=== PATIENT | male | born 1960 | race Caucasian/White ===

== ENCOUNTER 2020-02-19 17:54 | Inpatient (IN) ==
[2020-02-19] MEDS ORDERED: ONDANSETRON INJ 2 MG/ML 2 ML VIAL IV STA (18:41)
[2020-02-19] MEDS ORDERED: MoRPHine SULFATE 2 MG/ML CARP IV STA ×2 (18:41→19:56)
[2020-02-19] MEDS ORDERED: SODIUM CHLORIDE 0.9% 1000ML 1,000 ML IV SCH ×2 (18:45→21:45)
--- NOTE | 2020-02-19 18:52 | Emergency Department Note ---
History of Present Illness General Chief complaint: Abdominal Pain Stated complaint: ABDOMINAL PAIN Time Seen by Provider: 02/19/20 18:27 Source: patient and family (Significant other who is at the bedside) Mode of arrival: ambulatory Limitations: no limitations History of Present Illness Maximum Pain Intensity: 6 This patient comes complaining of epigastric abdominal pain and nausea and vomiting for about 5 days. It has been constant although gets worse after eating. He does have some slight radiation up towards the chest but no chest pain itself. No pain into the back. He gets cold sweats and is not sure if he had a fever. He has been vomiting but has had no blood or coffee ground emesis. It has been slightly green at times. Last bowel movement was loose and was yesterday. No blood or melena in his stool. He has Parkinson's disease and feels mildly short of breath at baseline but nothing changed. Slight cough occasionally although he is a smoker. No known exposure for COVID and he has been staying basically at home. No fall or trauma. Home Medications Home Medications Medication Instructions Recorded Confirmed Type carbidopa 25 mg-levodopa 100 mg 1 tab PO DIRECTED tab 05/16/19 02/19/20 History tablet duloxetine 60 mg capsule,delayed 60 mg PO DAILY 05/16/19 02/19/20 History release lisinopril 10 mg tablet 10 mg PO DAILY #30 tab 12/04/19 02/19/20 Rx Allergies Allergy/AdvReac Type Severity Reaction Status Date / Time No Known Allergies Allergy Verified 02/19/20 21:22 Past Med/Surg History Medical History Cervical spondylosis Erectile dysfunction Headache Hypertension (Chronic) Parkinson disease Vertigo Surgical History Hx of neck surgery (05/2018) Family History Denies family history of Ovarian cancer Prostate cancer Myocardial infarction Breast cancer Lung cancer Colorectal cancer Social History Preferred Language: Korean Communication Ability: Effective Visual Impairment: No Limitations Hearing Ability: Normal Global Safety Officer Required: No Beliefs That Will Affect Care: None marital status: Single Current Living Situation: Alone and Other current occupational status: retired Feels Safe at Home: Yes Smoking Status: Current every day smoker Tobacco Type: cigarettes ; Age Started Using Tobacco: 17 ; packs per day: 1 ; Hx Alcohol Use: Yes Hx Substance Use: Yes substance use type: marijuana Childhood Exposure to Second-Hand Smoke: Yes Diet Comment: regular caffeine: No during the past year weight has: remained stable Dental Care, Regularly: No Physical Activity Frequency: Does not Exercise Seatbelt Use: always Sunscreen Use: No Immunizations: Additional past medical history: He denies diabetes or cardiac disease. He denies history of abdominal surgery. No history of peptic ulcer disease or pancreatitis Additional social history. He tells me he smokes 1 pack/day. Drinks about 6 drinks a day and has not had alcohol for a few days he denies that he gets withdrawal symptoms if he does not drink and does not feel shaky. He denies drug use. Review of Systems A total of 10 systems reviewed and were otherwise negative Physical Exam Vital Signs Vital Signs - 24 hr 02/19/20 17:55 02/19/20 18:54 02/19/20 19:06 Temperature 36.8 C Temperature Source Oral Pulse Rate 123 H Pulse Rate [Right Finger] 96 H Pulse Rate from SpO2 Sensor Pulse Rhythm Regular Pulse Strength Normal Respiratory Rate 20 18 Respiratory Effort / Characteristics Non-Labored Respiratory Depth Normal Normal Respiratory Pattern Regular Blood Pressure 161/88 H Blood Pressure [Right Arm] 176/93 H Blood Pressure Mean 112 Blood Pressure Mean [Right Arm] 120 Blood Pressure Position Sitting Blood Pressure Position [Right Arm] Lying Pulse Oximetry 100 97 100 Oxygen Delivery Method Room Air Room Air Sepsis Recent Fever Within 48 Hours No Sepsis New/Unexplained Change in Mental Status No Sepsis Action Taken by Nursing No Action Required 02/19/20 19:30 02/19/20 20:00 02/19/20 20:30 Temperature Temperature Source Pulse Rate 91 H 95 H 87 Pulse Rate [Right Finger] 91 H Pulse Rate from SpO2 Sensor 93 H 95 H 88 Pulse Rhythm Pulse Strength Respiratory Rate 11 L 14 13 Respiratory Effort / Characteristics Respiratory Depth Respiratory Pattern Blood Pressure 157/100 H 158/94 H 172/99 H Blood Pressure [Right Arm] 158/94 H Blood Pressure Mean 116 123 130 Blood Pressure Mean [Right Arm] 115 Blood Pressure Position Blood Pressure Position [Right Arm] Pulse Oximetry 99 100 99 Oxygen Delivery Method Room Air Sepsis Recent Fever Within 48 Hours Sepsis New/Unexplained Change in Mental Status Sepsis Action Taken by Nursing General: Well developed well nourished in no acute distress, breathing comfortably on room air. Normal speech HEENT: Normal cephalic atraumatic. Pupils are equal round and reactive to light. Sclera anicteric. Extraocular movements are intact. Oropharynx is pink with moist mucous membranes. No swelling of the mouth lips or tongue. Neck: Supple with a midline trachea. No meningeal signs or stiffness, no JVD or bruits. No Stridor. Chest: Clear to auscultation bilaterally. No wheezes or rhonchi. No increased work of breathing. Heart: Regular rate and rhythm without murmurs or gallops. Abdomen: Soft, moderately tender in the epigartic central abdomen, nondistended without rebound guarding or rigidity. No masses. Extremities: No cyanosis clubbing or edema. No calf tenderness or assymetry Spine/Back. Non tender to palpation. No CVA tenderness Skin: Good turgor without rashes. Neurologic exam: Cranial nerves two through 12 are intact. Motor and sensation are intact and symmetrical throughout. Course Administered Medications Ioversol (Optiray 320 100ml) 93 ml IV ONCE PRN PRN Reason: Interaction Checking Stop: 02/23/20 20:42 Last Admin: 02/19/20 20:44 Dose: 93 ml Documented by: [id number] Discontinued Medications Sodium Chloride (Nss 1000ml) 1,000 mls @ 999 mls/hr IV .Q1H1M MAKSIM Stop: 02/19/20 19:45 Last Infusion: 02/19/20 20:08 Dose: 0 mls/hr Documented by: [id number] Admin: 02/19/20 19:02 Dose: 999 mls/hr Documented by: [id number] Morphine Sulfate (Morphine Sulfate) 2 mg IV NOW STA Stop: 02/19/20 18:42 Last Admin: 02/19/20 19:01 Dose: 2 mg Documented by: [id number] Morphine Sulfate (Morphine Sulfate) 2 mg IV NOW STA Stop: 02/19/20 19:57 Last Admin: 02/19/20 20:06 Dose: 2 mg Documented by: [id number] Ondansetron HCl (Zofran) 4 mg IV NOW STA Stop: 02/19/20 18:42 Last Admin: 02/19/20 19:02 Dose: 4 mg Documented by: [id number] Medical Decision Making Differential Diagnosis Dehydration, peptic ulcer disease, gallbladder disease, pancreatitis, bowel obstruction, appendicitis, cardiac disease, COVID, sepsis, electrolyte or metabolic abnormality Medical Records Attestation: I reviewed the patient's medical records. Home Medications Current Medication List: was personally reviewed by me Laboratory Data Attestation: I reviewed the patient's lab results. Result diagrams: 02/19/20 18:56 02/19/20 18:56 Lab Results 02/19/20 02/19/20 02/19/20 Range/Units 18:56 18:56 18:56 WBC 7.77 (4.8-10.8) K/uL RBC 3.16 L (4.7-6.1) M/uL Hgb 13.1 L (14.0-18.0) g/dL Hct 36.9 L (42-52) % MCV 116.8 H (80-100) fL MCH 41.5 H (25-34) pg MCHC 35.5 (32-36) g/dL RDW Std Deviation 66.5 H (36.4-46.3) fL RDW Coeff of Brianda 15.8 H (11.5-14.5) % Plt Count 196 (130-400) K/uL MPV 9.7 (7.4-10.4) fL Immature Gran % (Auto) 0.3 % Neut % (Auto) 68.8 % Lymph % (Auto) 16.0 % Monroe % (Auto) 13.5 % Eos % (Auto) 1.0 % Baso % (Auto) 0.4 % Neut # (Auto) 5.35 (1.4-6.5) K/uL Lymph # (Auto) 1.24 (1.2-3.4) K/uL Monroe # (Auto) 1.05 H (0.11-0.59) K/uL Eos # (Auto) 0.08 (0-0.5) K/uL Baso # (Auto) 0.03 (0-0.2) K/uL Immature Gran # (Auto) 0.02 (0.00-0.02) K/uL Anisocytosis Present Macrocytosis Present PT 12.1 H (9.0-12.0) Seconds INR 1.2 H (0.9-1.1) APTT 26.8 (21.0-31.0) Seconds PTT Ratio 1.0 Sodium 137 (136-145) mmol/L Potassium 3.5 (3.5-5.1) mmol/L Chloride 97 L (98-107) mmol/L Carbon Dioxide 28 (21-32) mmol/L Anion Gap 12.0 H (3-11) BUN 12 (7-18) mg/dl Creatinine 0.80 (0.6-1.4) mg/dl Est Cr Clr Drug Dosing 77.3 ml/min Est GFR ( Amer) 113.3 Est GFR (Non-Af Amer) 97.8 BUN/Creatinine Ratio 15.0 (10-20) Glucose 106 H (70-99) mg/dl Calcium 9.1 (8.5-10.1) mg/dl Magnesium (1.8-2.4) mg/dl Total Bilirubin 1.5 H (0.2-1) mg/dl AST 66 H (15-37) U/L ALT 26 (12-78) U/L Alkaline Phosphatase 140 H (45-117) U/L Troponin I < 0.015 (0-0.045) ng/ml Total Protein 7.4 (6.4-8.2) gm/dl Albumin 3.4 (3.4-5.0) gm/dl Globulin 4.0 (2.5-4.0) gm/dl Albumin/Globulin Ratio 0.9 (0.9-2) Lipase 4833 H (73-393) U/L 02/19/20 Range/Units 18:56 WBC (4.8-10.8) K/uL RBC (4.7-6.1) M/uL Hgb (14.0-18.0) g/dL Hct (42-52) % MCV (80-100) fL MCH (25-34) pg MCHC (32-36) g/dL RDW Std Deviation (36.4-46.3) fL RDW Coeff of Brianda (11.5-14.5) % Plt Count (130-400) K/uL MPV (7.4-10.4) fL Immature Gran % (Auto) % Neut % (Auto) % Lymph % (Auto) % Monroe % (Auto) % Eos % (Auto) % Baso % (Auto) % Neut # (Auto) (1.4-6.5) K/uL Lymph # (Auto) (1.2-3.4) K/uL Monroe # (Auto) (0.11-0.59) K/uL Eos # (Auto) (0-0.5) K/uL Baso # (Auto) (0-0.2) K/uL Immature Gran # (Auto) (0.00-0.02) K/uL Anisocytosis Macrocytosis PT (9.0-12.0) Seconds INR (0.9-1.1) APTT (21.0-31.0) Seconds PTT Ratio Sodium (136-145) mmol/L Potassium (3.5-5.1) mmol/L Chloride (98-107) mmol/L Carbon Dioxide (21-32) mmol/L Anion Gap (3-11) BUN (7-18) mg/dl Creatinine (0.6-1.4) mg/dl Est Cr Clr Drug Dosing ml/min Est GFR ( Amer) Est GFR (Non-Af Amer) BUN/Creatinine Ratio (10-20) Glucose (70-99) mg/dl Calcium (8.5-10.1) mg/dl Magnesium 1.6 L (1.8-2.4) mg/dl Total Bilirubin (0.2-1) mg/dl AST (15-37) U/L ALT (12-78) U/L Alkaline Phosphatase (45-117) U/L Troponin I (0-0.045) ng/ml Total Protein (6.4-8.2) gm/dl Albumin (3.4-5.0) gm/dl Globulin (2.5-4.0) gm/dl Albumin/Globulin Ratio (0.9-2) Lipase (73-393) U/L Imaging Data Attestation: I personally reviewed and interpreted this imaging study as follows: My Impression: Chest x-ray: No acute infiltrate, failure, pneumothorax seen. No free air seen Radiologist's Impression: CT abd pelvis IV con only CLINICAL HISTORY: eval for pancreatitis, pseudocyst MID ABDOMINAL PAIN COMPARISON STUDY: None. TECHNIQUE: Patient was scanned in a dynamic helical fashion during intravenous administration of 93 cc of Optiray 320 A dose lowering technique was utilized adhering to the principles of ALARA. CT DOSE: 250.38 mGy.cm FINDINGS: Lower chest: The heart is normal in size and configuration, without pericardial effusion. The lung bases and pleural spaces are clear. Liver: There is severe hepatic steatosis. No focal masses are visualized. There is focal fatty sparing adjacent to the falciform ligament. There is no ductal dilatation. The portal vein and hepatic veins appear patent Gallbladder: Unremarkable. Spleen: Normal in size and attenuation. Pancreas: There is peripancreatic edema consistent with acute interstitial monae creatitis. Edema extends to surround the second portion the duodenum. Adrenal glands: Unremarkable. Kidneys: There is a 7 mm exophytic hyperdense left renal lesion. A dedicated renal CT scan or MRI is recommended for differentiation of a solid renal lesion from a hyperdense cyst. Bowel: There are no transition zones to indicate bowel obstruction. The appendix appears normal. There is colonic diverticulosis. There is no evidence of acute diverticulitis. Peritoneum: There is no intraperitoneal free air or abdominal ascites. Vasculature: The abdominal aorta is normal in course and caliber. Adenopathy: None. Pelvic viscera: There is bladder wall thickening. There is borderline prostatomegaly. Skeletal structures: No destructive lesions are visualized IMPRESSION: 1. No evidence of bowel obstruction. No evidence of free air 2. Normal appendix. No evidence of acute diverticulitis 3. Severe hepatic steatosis 4. Diffuse peripancreatic edema consistent with acute interstitial pancreatitis 5. 7 mm left renal lesion, hyperdense cyst versus solid renal neoplasm. A nonemergent dedicated renal CT scan or MRI is recommended in follow-up 6. Bladder wall thickening XR chest 1V portable CLINICAL HISTORY: Atypical chest pain COMPARISON STUDY: No previous studies for comparison. FINDINGS: The cardiac and mediastinal contours are normal. There is no evidence of focal pulmonary consolidation. There is no evidence of failure. No pleural effusions are visualized.[There are multiple old right-sided rib fractures. There are postsurgical changes within the cervical spine. IMPRESSION: No active disease in the chest. ECG Data Attestation: I personally reviewed and interpreted this ECG as follows: Indication: + abdominal pain Blood Pressure Blood Pressure Findings: Elevated blood pressure Blood Pressure Disposition: elevated BP felt to be situational MDM Narrative This patient comes in with epigastric abdominal pain and vomiting. This is been going on for 5 days. He is moderately tender in epigastric area. The differential is broad at this point. IV access was established and he was hydrated with a 1 L IV normal saline bolus and then hourly rate of IV normal saline. He was given Zofran 4 mg IV and morphine 2 mg IV for pain and nausea management. He is not driving. He does drink alcohol moderately but denies any alcohol withdrawal type symptoms does not have a history of pancreatitis. EKG and chest x-ray were also ordered. EKG does not suggest acute coronary syndrome or arrhythmia. Chest x-ray is unremarkable and there is no free air or pulmonary findings. He has no significant white count or fever to suggest infection. He has no significant electrolyte or metabolic abnormalities. There is nothing suggest liver disease. His lipase however is significantly elevated at greater than 4800. I did order a CT with IV contrast to further evaluate this and to rule out pseudocyst or bowel obstruction. CAT scan does show pancreatitis there is no pseudocyst. This may be related to his alcohol use. Did receive additional IV morphine 2 mg. I do think he needs to be admitted for further treatment and evaluation hydration and bowel rest. I have discussed case with Dr. Mccollum in consultation. The patient also has a 7 mm left renal lesion which could be a cyst or malignancy and he may need further work-up on this as well. His magnesium was low at 1.6 and he was repleted in the ED with 1 g IV mag Impression & Plan Acute pancreatitis, Parkinson disease, Vomiting, Abdominal pain with vomiting, Hypomagnesemia, Kidney lesion Discharge Plan Visit Data Chief Complaint: Abdominal Pain Stated Complaint: ABDOMINAL PAIN ED Provider: Colin Grissom Discharge Problem: Acute pancreatitis, Parkinson disease, Vomiting, Abdominal pain with vomiting, Hypomagnesemia, Kidney lesion Forms Stand Alone Forms: My [facility] Prescriptions Prescriptions: No Action lisinopril 10 mg tablet 10 mg PO DAILY Qty: 30 RF: 5 duloxetine [Cymbalta] 60 mg capsule,delayed release(DR/EC) 60 mg PO DAILY RF: 0 carbidopa-levodopa [Sinemet] 25-100 mg tablet 1 tab PO DIRECTED RF: 0 Discharge Problem: Acute pancreatitis Qualifiers: Pancreatitis type: alcohol induced Acute pancreatitis complication: uninfected necrosis Qualified Code(s): K85.21 - Alcohol induced acute pancreatitis with uninfected necrosis Vomiting Qualifiers: Vomiting type: unspecified Vomiting Intractability: intractable Nausea presence: with nausea Qualified Code(s): R11.2 - Nausea with vomiting, unspecified
[2020-02-19 19:03] LABS: Basophils # (auto) 0.03 K/uL (0-0.2); Basophils % (auto) 0.4 %; Eosinophils # (auto) 0.08 K/uL (0-0.5); Hematocrit (blood only) 36.9 % (42-52); Hemoglobin 13.1 g/dL (14.0-18.0); Immature Granulocytes # (auto) 0.02 K/uL (0.00-0.02); Immature Granulocytes % (auto) 0.3 %; Lymphocytes # (auto) 1.24 K/uL (1.2-3.4); Mean Corpuscular Hemoglobin 41.5 pg (25-34); Mean Corpuscular Hgb Conc 35.5 g/dL (32-36); Mean Corpuscular Volume 116.8 fL (80-100); Mean Platelet Volume 9.7 fL (7.4-10.4); Monocytes # (auto) 1.05 K/uL (0.11-0.59); Monocytes % (auto) 13.5 %; Neutrophils # (auto) 5.35 K/uL (1.4-6.5); Neutrophils % (auto) 68.8 %; Platelet Count 196 K/uL (130-400); RDW Coefficient of Variation 15.8 % (11.5-14.5); RDW Standard Deviation 66.5 fL (36.4-46.3); Red Blood Count 3.16 M/uL (4.7-6.1); White Blood Count 7.77 K/uL (4.8-10.8)
[2020-02-19 19:17] LABS: INR 1.2 (0.9-1.1); Partial Thromboplastin Time 26.8 Seconds (21.0-31.0); Prothrombin Time 12.1 Seconds (9.0-12.0)
[2020-02-19 19:21] LABS: Alanine Aminotransferase 26 U/L (12-78); Albumin Level 3.4 gm/dl (3.4-5.0); Aspartate Aminotransferase 66 U/L (15-37); Blood Urea Nitrogen 12 mg/dl (7-18); Calcium 9.1 mg/dl (8.5-10.1); Carbon Dioxide 28 mmol/L (21-32); Chloride 97 mmol/L (98-107); Creatinine Clr Calc Pharmacy 77.3 ml/min; Est GFR (African American) 113.3; Est GFR (Non-African American) 97.8; Glucose 106 mg/dl (70-99); Potassium 3.5 mmol/L (3.5-5.1); Sodium 137 mmol/L (136-145)
--- NOTE | 2020-02-19 19:24 | XRay Report ---
XR chest 1V portable CLINICAL HISTORY: Atypical chest pain COMPARISON STUDY: No previous studies for comparison. FINDINGS: The cardiac and mediastinal contours are normal. There is no evidence of focal pulmonary co nsolidation. There is no evidence of failure. No pleural effusions are visualized.[There are multiple old right-sided rib fractures. There are postsurgical changes within the cervical spine. IMPRESSION: No active disease in the chest. ACT 112: Negative or not required by law. Electronically signed by: Andriy Guzmán M.D. 02/19/2020 7:23 PM
[2020-02-19 19:26] LABS: Albumin Globulin Ratio 0.9 (0.9-2); Alkaline Phosphatase 140 U/L (45-117); Bilirubin,Total 1.5 mg/dl (0.2-1); Lipase 4833 U/L (73-393); Total Protein 7.4 gm/dl (6.4-8.2); Troponin I < 0.015 ng/ml (0-0.045)
[2020-02-19 20:15] LABS: Anisocytosis Present; Macrocytosis Present
[2020-02-19] MEDS ORDERED: IOVERSOL 100ml IV PRN (20:43)
--- NOTE | 2020-02-19 20:58 | CT Scan Report ---
CT abd pelvis IV con only CLINICAL HISTORY: eval for pancreatitis, pseudocyst MID ABDOMINAL PAIN COMPARISON STUDY: None. TECHNIQUE: Patient was scanned in a dynamic helical fashion during intravenous administration of 93 c c of Optiray 320 A dose lowering technique was utilized adhering to the principles of ALARA. CT DOSE: 250.38 mGy.cm FINDINGS: Lower chest: The heart is normal in size and configuration, without pericardial effusion. The lung ba ses and pleural spaces are clear. Liver: There is severe hepatic steatosis. No focal masses are visualized. There is focal fatty sparin g adjacent to the falciform ligament. There is no ductal dilatation. The portal vein and hepatic vein s appear patent Gallbladder: Unremarkable. Spleen: Normal in size and attenuation. Pancreas: There is peripancreatic edema consistent with acute interstitial pancreatitis. Edema extend s to surround the second portion the duodenum. Adrenal glands: Unremarkable. Kidneys: There is a 7 mm exophytic hyperdense left renal lesion. A dedicated renal CT scan or MRI is recommended for differentiation of a solid renal lesion from a hyperdense cyst. Bowel: There are no transition zones to indicate bowel obstruction. The appendix appears normal. Ther e is colonic diverticulosis. There is no evidence of acute diverticulitis. Peritoneum: There is no intraperitoneal free air or abdominal ascites. Vasculature: The abdominal aorta is normal in course and caliber. Adenopathy: None. Pelvic viscera: There is bladder wall thickening. There is borderline prostatomegaly. Skeletal structures: No destructive lesions are visualized IMPRESSION: 1. No evidence of bowel obstruction. No evidence of free air 2. Normal appendix. No evidence of acute diverticulitis 3. Severe hepatic steatosis 4. Diffuse peripancreatic edema consistent with acute interstitial pancreatitis 5. 7 mm left renal lesion, hyperdense cyst versus solid renal neoplasm. A nonemergent dedicated renal CT scan or MRI is recommended in follow-up 6. Bladder wall thickening ACT 112: Negative or not required by law. Electronically signed by: Andriy Guzmán M.D. 02/19/2020 8:56 PM
[2020-02-19] MEDS ORDERED: MAGNESIUM SULFATE / D5W 1 GM/100 ML BAG IV STA (21:35)
--- NOTE | 2020-02-19 22:26 | History & Physical Report ---
Date of Service February 19, 2020 Assessment & Plan (1) Acute pancreatitis: Jorge Coronado is a 59 y/o male with past medical hx of Parkinson's, tobacco abuse, alcohol abuse, HTN, Depression, erectile dysfunction who presented to [facility] ED for abdominal pain. In the ED he was found to have pancre atitis with Lipase greater than 3 times upper limit of normal at 4833. AST 66 ALT 26. Hgb 13.1 and MCV 116.8, INR 1.2, T Bili 1.5, Mag 1.6, K 3.5. CT abd/pelvis with severe hepatic steatosis, diffuse peripancretic edema consistent with acute interstitial pancreatitis, 7mm left renal lesion, hyperdense cyst versus solid renal neoplasm with recommended nonemergent dedicated CT scan or MRI, bladder wall thicking, CXR w NAD. In ED he received Mag 1gm IV, NSS 1L Bolus and then NSS @ 125mL/hr, Zofran 4mg IV x1, Morphine 2mg IV x2. - Will treat pancreatitis with IVF, Pain analgesics, and bowel rest. - NPO except for sips/chips/meds - Control Nausea and Vomiting with Zofran 4mg IV PRN - Pain control with Dilaudid 0.5mg IV q3H PRN - Follow clinically - No signs of acute hepatitis, most likely etiology is pancreatitis from alcohol intake. - Lipase 4833 on initial; trend in AM; no significant elevation of LFTs for choledocholithiasis. - CT Abd consistent with inflammation of pancreas, no signs of abscess. - MELD score of 10 with 6.0% 3-month mortality. FENGI: NPO except for sips/chips/meds; Pepcid 20mg IV; Nutrition consult for nutritional assessment DVT ppx: SCDs Code: Full Dispo: Med/surg tele, Full admit (2) Nausea and vomiting: - No signs of bloody emesis - Most likely from pancreatitis - NPO and Zofran 4mg IV PRN (3) Alcohol abuse: - with signs of liver damage with severe hepatic steatosis on imaging - AST: ALT 2:1 ratio - no signs of acute alcoholic hepatitis, ALT WNL - No prior history of withdrawal and reports being 48 hours out without signs of withdrawal closely, no need for current AWSS protocols, but could change clinically. (4) Kidney lesion: 7mm left renal lesion, hyperdense cyst versus solid renal neoplasm with recommended nonemergent dedicated CT scan or MRI Smoking history risk factor UA ordered to look for blood Renal CT ordered for AM, already received IV contrast for CT Abd/pelvis in ED, may confound testing if ordered now, will order for AM. (5) Hypertension: C/w home Lisinopril 10mg PO, BPs elevated in ED 163/95, creatinine WNL. (6) Parkinson disease: appears currently stable C/w home Carbo/Levo 25mg/100mg. (7) Macrocytic anemia: - Folate and Vit B12 ordered - MCV with 116.8, Hgb 13.1 - Folate 1gm IV ordered - Consistent with alcohol abuse hx (8) Hypomagnesemia: Mag 1.6 in ED, given Mag 1gm IV x1 Trend in AM History of Present Illness Chief Complaint: Abdominal Pain Primary Care Provider: [place]ia Vasquez DO Jorge Coronado is a 59 y/o male with past medical hx of Parkinson's, tobacco abuse, alcohol abuse, HTN, Depression, erectile dysfunction who presented to [facility] ED for abdominal pain. He notes pain started about 5 days ago. It is located to his epigastric area, he denies radiation. He describes pain as stabbing. He notes he has had nausea and vomiting for the past 2 days with limited PO intake. He notes nausea and vomiting is worse with any food or liquid intake. He denies bloody emesis, black/blood stools. He notes pain gradually became worse and since wasn't able to tolerate PO intake he came here to ED for evaluation. He denies acute fever/chills, chest pain, shortness of breath. He notes currently in ED he feels same, has no active vomiting and denies current nausea. He notes not being able to take his Parkinson's medication for about 2 days. He also notes his last drink of alcohol was about 2 days ago as well. He notes usually drinks a 6 pack of Vicente light per day. He denies prior history of alcohol withdrawal or symptoms when going a couple days without drinking. He notes a history of hallucinations visual that is attributed to Parkinson's denies that this is from alcohol withdrawal, denies any current. In the ED he was found to have pancreatitis with Lipase greater than 3 times upper limit of normal at 4833. AST 66 ALT 26. Hgb 13.1 and MCV 116.8, INR 1.2, T Bili 1.5, Mag 1.6, K 3.5. CT abd/pelvis with severe hepatic steatosis, diffuse peripancretic edema consistent with acute interstitial pancreatitis, 7mm left renal lesion, hyperdense cyst versus solid renal neoplasm with recommended nonemergent dedicated CT scan or MRI, bladder wall thicking, CXR w NAD. In ED he received Mag 1gm IV, NSS 1L Bolus and then NSS @ 125mL/hr, Zofran 4mg IV x1, Morphine 2mg IV x2. Allergies Allergy/AdvReac Type Severity Reaction Status Date / Time No Known Allergies Allergy Verified 02/19/20 21:22 Home Medications Home Medications Medication Instructions Recorded Confirmed Type carbidopa 25 mg-levodopa 100 mg 1 tab PO DIRECTED tab 05/16/19 02/19/20 History tablet duloxetine 60 mg capsule,delayed 60 mg PO DAILY 05/16/19 02/19/20 History release lisinopril 10 mg tablet 10 mg PO DAILY #30 tab 12/04/19 02/19/20 Rx Past Med/Surg History Medical History Cervical spondylosis Erectile dysfunction Headache Hypertension (Chronic) Parkinson disease Vertigo Surgical History Hx of neck surgery (05/2018) Family History Denies family history of Ovarian cancer Prostate cancer Myocardial infarction Breast cancer Lung cancer Colorectal cancer Social History Preferred Language: Kiswahili Communication Ability: Effective Visual Impairment: No Limitations Hearing Ability: Normal 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 Beliefs That Will Affect Care: None marital status: Single Current Living Situation: Significant Other Current Living Situation Comment: Fiance current occupational status: retired Other Information That Helps Us Care for You: No Feels Safe at Home: Yes Safety Concerns: Feels Safe At This Time Smoking Status: Current every day smoker Tobacco Type: cigarettes ; Age Started Using Tobacco: 17 ; packs per day: 1 ; Do You Dip or Chew Tobacco: No ; Tobacco Cessation Education Requested by Patient: No Hx Alcohol Use: Yes Alcohol type: beer Hx Substance Use: No Childhood Exposure to Second-Hand Smoke: Yes Diet Comment: regular caffeine: No during the past year weight has: remained stable Dental Care, Regularly: No Physical Activity Frequency: Does not Exercise Seatbelt Use: always Sunscreen Use: No Review of Systems Review of Systems: All systems reviewed & are unremarkable except as noted in HPI & below Constitutional: no sweats and no increased appetite notes chronic subjective fever chills, not acute Eyes: no diplopia and no problem reported Ear, Nose, Mouth, Throat: no nasal congestion and no epistaxis Respiratory: no dyspnea and no pain on inspiration Cardiovascular: no chest pain and no palpitations Gastrointestinal: as per Subjective / HPI Genitourinary: no dysuria and no urinary frequency Musculoskeletal: no back pain and no neck pain Integumentary: no rash and no lesions Neurologic: no falls, no numbness and no syncope Endocrine: no polydipsia, no polyphagia and no polyuria Physical Exam Constitutional: + thin, + disheveled, cooperative and comfortable; no acute distress appears older than stated age Eyes: PERRL, conjunctivae normal, anicteric sclerae ENMT: external ear and nose normal, oropharynx normal Neck: normal visual inspection and trachea midline Respiratory: normal respiratory effort, lungs clear to auscultation Cardiovascular: distant heart sounds; no edema Gastrointestinal (Abdomen): Inspection/Auscultation: caput medusae absent and Mehta-Merida sign absent Percussion/Palpation: + abdomen tender (epigastric without rebound) and + guarding (voluntary); no ascites No candie sign Musculoskeletal: Head/Neck/Chest: normocephalic and head atraumatic Skin: erythema across upper chest not consistent with infection Neurologic: moves all extremities and awake; no focal motor deficits Motor/Sensory: no tremor and no asterixis Psychiatric: Orientation: alert and oriented x 3 Affect: + depressed affect and + flat affect Mood: + depressed mood Results & Data Results & Data ([facility]) Vital Signs (Past 12 Hours) Vital Signs Temp Pulse Pulse Resp BP BP Pulse Ox 02/19/20 22:04 100 02/19/20 22:00 94 H 24 163/95 H 99 02/19/20 21:30 96 H 22 167/99 H 99 02/19/20 20:30 87 13 172/99 H 99 02/19/20 20:00 95 H 91 H 14 158/94 H 158/94 H 100 02/19/20 19:30 91 H 11 L 157/100 H 99 02/19/20 19:06 96 H 18 176/93 H 100 02/19/20 18:54 97 02/19/20 17:55 36.8 C 123 H 20 161/88 H 100 Laboratory Results Laboratory Results - last 24 hr 02/19/20 02/19/20 02/19/20 18:56 18:56 18:56 WBC 7.77 RBC 3.16 L Hgb 13.1 L Hct 36.9 L MCV 116.8 H MCH 41.5 H MCHC 35.5 RDW Std Deviation 66.5 H RDW Coeff of Brianda 15.8 H Plt Count 196 MPV 9.7 Immature Gran % (Auto) 0.3 Neut % (Auto) 68.8 Lymph % (Auto) 16.0 Garrett % (Auto) 13.5 Eos % (Auto) 1.0 Baso % (Auto) 0.4 Neut # (Auto) 5.35 Lymph # (Auto) 1.24 Garrett # (Auto) 1.05 H Eos # (Auto) 0.08 Baso # (Auto) 0.03 Immature Gran # (Auto) 0.02 Anisocytosis Present Macrocytosis Present PT 12.1 H INR 1.2 H APTT 26.8 PTT Ratio 1.0 Sodium 137 Potassium 3.5 Chloride 97 L Carbon Dioxide 28 Anion Gap 12.0 H BUN 12 Creatinine 0.80 Est Cr Clr Drug Dosing 77.3 Est GFR ( Amer) 113.3 Est GFR (Non-Af Amer) 97.8 BUN/Creatinine Ratio 15.0 Glucose 106 H Calcium 9.1 Magnesium Total Bilirubin 1.5 H AST 66 H ALT 26 Alkaline Phosphatase 140 H Troponin I < 0.015 Total Protein 7.4 Albumin 3.4 Globulin 4.0 Albumin/Globulin Ratio 0.9 Lipase 4833 H 02/19/20 18:56 WBC RBC Hgb Hct MCV MCH MCHC RDW Std Deviation RDW Coeff of Brianda Plt Count MPV Immature Gran % (Auto) Neut % (Auto) Lymph % (Auto) Garrett % (Auto) Eos % (Auto) Baso % (Auto) Neut # (Auto) Lymph # (Auto) Garrett # (Auto) Eos # (Auto) Baso # (Auto) Immature Gran # (Auto) Anisocytosis Macrocytosis PT INR APTT PTT Ratio Sodium Potassium Chloride Carbon Dioxide Anion Gap BUN Creatinine Est Cr Clr Drug Dosing Est GFR ( Amer) Est GFR (Non-Af Amer) BUN/Creatinine Ratio Glucose Calcium Magnesium 1.6 L Total Bilirubin AST ALT Alkaline Phosphatase Troponin I Total Protein Albumin Globulin Albumin/Globulin Ratio Lipase Medications Administered Magnesium Sulfate/Dextrose (Magnesium Sulfate / D5w) 1 gm in 100 mls @ 100 mls/hr IV NOW STA Stop: 02/19/20 22:34 Last Admin: 02/19/20 22:00 Dose: 100 mls/hr Documented by: [id number] Sodium Chloride (Nss 1000ml) 1,000 mls @ 125 mls/hr IV .Q8H MAKSIM Stop: 03/20/20 21:44 Last Admin: 02/19/20 22:01 Dose: 125 mls/hr Documented by: [id number] Ioversol (Optiray 320 100ml) 93 ml IV ONCE PRN PRN Reason: Interaction Checking Stop: 02/23/20 20:42 Last Admin: 02/19/20 20:44 Dose: 93 ml Documented by: [id number] Code Status & VTE Plan Code Status Full Code VTE Prophylaxis Plan VTE Prophylaxis will be ordered: Yes Supervising Physician Co-Signing Physician Notes Attending addendum: I have physically seen this patient, have supervised the medical residents activities, and agree with the H&P unless as otherwise noted. Assessment and Plan: Acute pancreatitis/history of alcohol abuse with normal levels today- N.p.o. AST 66, lipase 4833, total bili 1.5. IV fluids per protocol Zofran 4 mg IV every 6 hours as needed Dilaudid 0.5 mg IV every 3 hours as needed severe pain Follow serial CBC with differential, chemistry profile and lipase levels Meld score of 10 Hypokalemia hypomagnesemia- Correct with IV replacement. Repeat laboratories in a.m. Alcohol abuse- AWSS protocol. 7 mm left kidney lesion- Possible renal cell carcinoma. Order a Renal CT Consult urology Remaining orders notations as noted Resident Activity Tracking Resident Involvement: Resident Care Provided Care Provided: Adult Hospital Medicine (1) Acute pancreatitis Acute pancreatitis complication: uninfected necrosis Pancreatitis type: alcohol induced Qualified Code(s): K85.21 - Alcohol induced acute pancreatitis with uninfected necrosis
[2020-02-19] MEDS ORDERED: ONDANSETRON INJ 2 MG/ML 2 ML VIAL IV PRN (23:54)
[2020-02-20] MEDS: HYDROmorphone INJ 0.5 MG/0.5 ML SYR IV PRN ×4 (00:19→21:05)
[2020-02-20] MEDS: CARBIDOPA/LEVODOPA 25/100MG TAB PO SCH ×4 (00:38→21:01)
[2020-02-20] MEDS: THIAMINE HCL 100 MG in SYRINGE 9 ML IV SCH ×2 (00:38→08:34)
[2020-02-20] MEDS: FAMOTIDINE 20 MG in SYRINGE 3 ML IV SCH ×2 (00:38→08:34)
[2020-02-20] MEDS: FOLIC ACID 1 MG in SYRINGE 9.8 ML IV SCH ×2 (00:38→08:34)
[2020-02-20] MEDS: SODIUM CHLORIDE 0.9% 1000ML 1,000 ML IV SCH ×3 (00:38→16:47)
[2020-02-20 01:22] LABS: Acetaminophen < 2 ug/ml (10-30); Salicylate < 1.7 mg/dl (2.8-20)
[2020-02-20 04:51] LABS: Appearance Urine Clear (Clear); Bacteria Urine Automated Negative (Negative); Blood Urine Negative (Negative); Color Urine Orange; Glucose Urine UA Negative (Negative); Ketones Urine 1+ (Negative); Leukocyte Esterase Urine 1+ (Negative); Nitrite Urine Positive (Negative); RBC Urine Automated 0-4 /hpf (0-4); Specific Gravity Urine > 1.045 (1.000-1.030); Urobilinogen Urine Negative (Negative); WBC Urine Automated >30 /hpf (0-5); pH Urine 7.5 (4.5-7.5)
[2020-02-20 05:00] LABS: Bilirubin Urine Negative (Negative); Ictotest Urine Negative (Negative); Protein Urine Trace (Negative); Sulfosalicylic Acid Urine Positive (Negative)
[2020-02-20 07:56] LABS: Basophils # (auto) 0.01 K/uL (0-0.2); Basophils % (auto) 0.2 %; Eosinophils # (auto) 0.23 K/uL (0-0.5); Eosinophils % (auto) 4.3 %; Hemoglobin 11.7 g/dL (14.0-18.0); Immature Granulocytes # (auto) 0.02 K/uL (0.00-0.02); Immature Granulocytes % (auto) 0.4 %; Lymphocytes # (auto) 0.95 K/uL (1.2-3.4); Lymphocytes % (auto) 17.8 %; Mean Corpuscular Hemoglobin 40.6 pg (25-34); Mean Corpuscular Hgb Conc 34.4 g/dL (32-36); Mean Corpuscular Volume 118.1 fL (80-100); Mean Platelet Volume 10.1 fL (7.4-10.4); Monocytes # (auto) 0.69 K/uL (0.11-0.59); Monocytes % (auto) 12.9 %; Neutrophils # (auto) 3.43 K/uL (1.4-6.5); Neutrophils % (auto) 64.4 %; Platelet Count 176 K/uL (130-400); RDW Coefficient of Variation 15.6 % (11.5-14.5); RDW Standard Deviation 66.9 fL (36.4-46.3); Red Blood Count 2.88 M/uL (4.7-6.1); White Blood Count 5.33 K/uL (4.8-10.8)
[2020-02-20 08:06] LABS: INR 1.2 (0.9-1.1); Prothrombin Time 12.6 Seconds (9.0-12.0)
[2020-02-20] MEDS ORDERED: IOVERSOL 100ml IV PRN (08:06)
--- NOTE | 2020-02-20 08:15 | Hospitalist Progress Note ---
Date of Service February 20, 2020 Assessment & Plan (1) Acute pancreatitis: Jorge Coronado is a 59 y/o male with past medical hx of Parkinson's, tobacco abuse, alcohol abuse, HTN, Depression, erectile dysfunction who presented to [facility] ED for abdominal pain. In the ED he was found to have pancre atitis with Lipase greater than 3 times upper limit of normal [place] 4833. CT abd/pelvis with severe hepatic steatosis, diffuse peripancretic edema consistent with acute interstitial pancreatitis, 7mm left renal lesion, hyperdense cyst versus solid renal neoplasm with recommended nonemergent dedicated CT scan or MRI, bladder wall thicking, - treat pancreatitis with IVF, Pain analgesics, antiemetics and bowel rest. - NPO except for sips/chips/meds no significant elevation of LFTs for choledocholithiasis. - CT Abd consistent with inflammation of pancreas, no signs of abscess. - MELD score of 10 with 6.0% 3-month mortality. Lipase reduced from [id number] (2) Nausea and vomiting: - No signs of bloody emesis - Most likely from pancreatitis - NPO and Zofran 4mg IV PRN (3) Alcohol abuse: - with signs of liver damage with severe hepatic steatosis on imaging - AST: ALT 2:1 ratio No signs of alcohol withdrawal at the present time (4) Kidney lesion: 7mm left renal lesion, hyperdense cyst versus solid renal neoplasm with recommended nonemergent dedicated CT scan or MRI Smoking history risk factor UA ordered to look for blood Renal CT IMPRESSION: 1. Severe hepatic steatosis 2. Peripancreatic edema consistent with acute interstitial pancreatitis 3. Suboptimal dedicated renal CT technique, as insufficient time elapsed from the prior contrast study to make the noncontrast portion of the study a true noncontrast exam. Nevertheless the 7 mm left renal lesion in question appeared hyperdense to renal parenchyma on the noncontrast portion of the study and did not demonstrate significant enhancement. This lesion is felt to represent a hyperdense cyst. A 12 month follow-up study would seem prudent. (5) Hypertension: C/w home Lisinopril 10mg PO, BPs elevated in ED 163/95, creatinine WNL. (6) Parkinson disease: appears currently stable C/w home Carbo/Levo 25mg/100mg. (7) Macrocytic anemia: - Folate and Vit B12 ordered - MCV with 116.8, Hgb 13.1 - Folate 1gm IV ordered - Consistent with alcohol abuse hx (8) Hypomagnesemia: Mag 1.6 in ED, given Mag 1gm IV x1 Trend in AM Admission and Anticipated Discharge Date Admission Date: February 19, 2020 Subjective Patient is an improvement but persistent epigastric and left upper quadrant pain he is not hungry in any way he is not having tremulousness or signs and symptoms of alcohol withdrawal Review of Systems Review of Systems: Mild distress and fatigue no headache, blurry or double vision no speech or swallowing issues no chest pain, pressure or palpitations no shortness of breath, cough or wheezes Gastric and left upper quadrant sulema pain mild nausea no vomiting no diarrhea or constipation no dysuria, hematuria or frequency no focal joint pain or swelling no back pain, CVA tenderness or radicular pain no bruising, bleeding or rashes no focal signs of weakness or numbness or altered sensation no complaints or anxiety or depression. Physical Exam Physical Exam: The patient appeared well nourished and normally developed. Vital signs as documented. Head exam is normocephalic atraumatic no scleral icterus Neck is without JVD, thyromegaly, or carotid bruits. Lungs are clear to auscultation, no focal loss of breath sounds Cardiac exam, Rhythm is regular.. No murmurs, rubs or gallops. Abdominal exam reveals normal bowel sounds, soft producible epigastric tenderness and guarding as well as left upper quadrant tenderness and guarding Extremities are nonedematous and both pedal pulses are normal. Neurologic exam is alert and oriented, no focal loss of strength or sensation Skin is without bruises or rashes Psychologically is without concerns for anxiety or depression Results & Data Results & Data ([facility]) Vital Signs (Past 12 Hours) Vital Signs Temp Pulse Pulse Resp BP BP BP 02/20/20 07:43 97.9 F 78 18 165/91 H 02/20/20 07:00 116 H 02/20/20 04:00 98.1 F 90 20 176/89 H 02/20/20 01:00 173/93 H 02/19/20 23:54 98.1 F 87 21 187/101 H 02/19/20 23:00 90 13 162/101 H 02/19/20 22:30 95 H 20 154/104 H 02/19/20 22:04 02/19/20 22:00 94 H 24 163/95 H 02/19/20 21:30 96 H 22 167/99 H 02/19/20 20:30 87 13 172/99 H Pulse Ox 02/20/20 07:43 99 02/20/20 07:00 02/20/20 04:00 100 02/20/20 01:00 02/19/20 23:54 97 02/19/20 23:00 98 02/19/20 22:30 99 02/19/20 22:04 100 02/19/20 22:00 99 02/19/20 21:30 99 02/19/20 20:30 99 PG Care Time/CCT Total # of Minutes Spent Total Time Spent with Patient: Total time spent is greater than 50% in coordination of care (as documented) at patient's floor/unit and/or counseling patient: Coding Level of Care Code 68814 Subseq Hosp Care Lvl 2 Diagnoses Acute pancreatitis K85.21 Acute pancreatitis complication: uninfected necrosis Pancreatitis type: alcohol induced Nausea and vomiting R11.2 Alcohol abuse F10.10 Kidney lesion N28.9 Hypertension I10 Parkinson disease G20 Macrocytic anemia D53.9 Hypomagnesemia E83.42 (1) Acute pancreatitis Acute pancreatitis complication: uninfected necrosis Pancreatitis type: alcohol induced Qualified Code(s): K85.21 - Alcohol induced acute pancreatitis with uninfected necrosis
[2020-02-20 08:20] LABS: Macrocytosis Present; Target Cells 1+
[2020-02-20 08:27] LABS: Albumin Level 2.9 gm/dl (3.4-5.0); BUN Creatinine Ratio 22.2 (10-20); Calcium 8.2 mg/dl (8.5-10.1); Creatinine Clr Calc Pharmacy 128.2 ml/min; Est GFR (African American) 136.4; Est GFR (Non-African American) 117.7; Magnesium 1.9 mg/dl (1.8-2.4); Potassium 3.1 mmol/L (3.5-5.1)
[2020-02-20 08:30] LABS: Albumin Globulin Ratio 0.8 (0.9-2); Bilirubin,Total 1.1 mg/dl (0.2-1); Globulin 3.7 gm/dl (2.5-4.0); Phosphorus 2.6 mg/dl (2.5-4.9); Total Protein 6.6 gm/dl (6.4-8.2)
--- NOTE | 2020-02-20 08:32 | CT Scan Report ---
CT renal wo/w con CT DOSE: 454.35 mGycm CLINICAL HISTORY: 7mm left renal lesion, hyperdense cyst vs neoplasm TECHNIQUE: Unenhanced images were obtained through the upper abdomen. The patient was then scanned in a dynamic helical fashion during the intravenous administration of 94 cc Optiray 320. Five-minute de layed images were also acquired. A dose lowering technique was utilized adhering to the principles o f ALARA. COMPARISON STUDY: 02/19/2020 FINDINGS: The lung bases are unremarkable in appearance. There is severe hepatic steatosis. There is peripancreatic edema consistent with acute interstitial pancreatitis. The gallbladder demonstrates vicarious contrast excretion. There is trace perihepatic fluid. No splenic masses are visualized. No adrenal masses are visualized. There is no evidence of abdominal aortic dilatation. The visualized portions of the appendix appear normal. The kidneys demonstrate contrast enhancement on the noncontrast study secondary to the CT scan perfor med 12 hours prior. The 7 mm left renal hyperdense lesion remains hyperintense dens to renal parenchy ma on the initial "noncontrast" images. There is no significant enhancement on the postcontrast image s. No collecting system lesions are visualized. Also evident is a 6 mm left renal cortical cyst IMPRESSION: 1. Severe hepatic steatosis 2. Peripancreatic edema consistent with acute interstitial pancreatitis 3. Suboptimal dedicated renal CT technique, as insufficient time elapsed from the prior contrast stacie dy to make the noncontrast portion of the study a true noncontrast exam. Nevertheless the 7 mm left r enal lesion in question appeared hyperdense to renal parenchyma on the noncontrast portion of the stacie dy and did not demonstrate significant enhancement. This lesion is felt to represent a hyperdense cys t. A 12 month follow-up study would seem prudent. ACT 112: Negative or not required by law. Electronically signed by: Andriy Guzmán M.D. 02/20/2020 8:31 AM
[2020-02-20 10:41] LABS: Folate (Folic Acid) 10.67 ng/ml (>5.38)
[2020-02-20] MEDS: lisinopriL 10 MG TAB PO SCH (12:24)
--- NOTE | 2020-02-20 12:50 | Electrocardiogram Report ---
Test Reason : Blood Pressure : / mmHG Vent. Rate : 103 BPM Atrial Rate : 103 BPM P-R Int : 120 ms QRS Dur : 078 ms QT Int : 384 ms P-R-T Axes : 083 083 088 degrees QTc Int : 503 ms Poor data quality, interpretation may be adversely affected Sinus tachycardia Biatrial enlargement Abnormal ECG No previous ECGs available Confirmed by Santos Chinchilla ([id number]) on 02/20/2020 12:50:09 PM Referred By: REFERRED SELF Confirmed By:Irwin Chinchilla
[2020-02-20] MEDS: NICOTINE 14 MG/24 HR PATCH TD PRN (13:40)
[2020-02-20] MEDS ORDERED: POTASSIUM CHLORIDE 10 MEQ / 100ML WTR IV STA (17:04)
[2020-02-20] MEDS: POTASSIUM CHLORIDE / WTR 10 MEQ/100 ML PLCT IV SCH ×3 (17:40→20:57)
--- NOTE | 2020-02-20 19:27 | Billing Data ---
Date of Service February 20, 2020 Coding Level of Care Code 91212 Initial Inpt Care Lvl 3
[2020-02-21] MEDS: SODIUM CHLORIDE 0.9% 1000ML 1,000 ML IV SCH ×2 (00:08→06:38)
[2020-02-21] MEDS: HYDROmorphone INJ 0.5 MG/0.5 ML SYR IV PRN ×5 (02:14→19:40)
[2020-02-21] MEDS: CARBIDOPA/LEVODOPA 25/100MG TAB PO SCH ×4 (02:14→20:01)
[2020-02-21] MEDS: FOLIC ACID 1 MG in SYRINGE 9.8 ML IV SCH (08:39)
[2020-02-21] MEDS: THIAMINE HCL 100 MG in SYRINGE 9 ML IV SCH (08:39)
[2020-02-21] MEDS: lisinopriL 10 MG TAB PO SCH (08:40)
[2020-02-21 09:43] LABS: Albumin Globulin Ratio 0.8 (0.9-2); Albumin Level 2.9 gm/dl (3.4-5.0); BUN Creatinine Ratio 10.1 (10-20); Calcium 8.2 mg/dl (8.5-10.1); Creatinine Clr Calc Pharmacy 153.1 ml/min; Est GFR (African American) 146.3; Est GFR (Non-African American) 126.2; Globulin 3.6 gm/dl (2.5-4.0); Potassium 3.4 mmol/L (3.5-5.1); Total Protein 6.5 gm/dl (6.4-8.2)
[2020-02-21] MEDS: NICOTINE 14 MG/24 HR PATCH TD PRN (10:03)
[2020-02-21] MEDS: FAMOTIDINE 20 MG in SYRINGE 3 ML IV SCH (10:10)
[2020-02-21] MEDS: POTASSIUM CHLORIDE 20 MEQ in SODIUM CHLORIDE 0.9% 1000ML 1,000 ML IV SCH ×2 (10:49→19:13)
--- NOTE | 2020-02-21 16:57 | Hospitalist Progress Note ---
Date of Service February 21, 2020 Assessment & Plan (1) Acute pancreatitis: Jorge Coronado is a 59 y/o male with past medical hx of Parkinson's, tobacco abuse, alcohol abuse, HTN, Depression, erectile dysfunction who presented to [facility] ED for abdominal pain. In the ED he was found to have pancre atitis with Lipase greater than 3 times upper limit of [place] 4833. CT abd/pelvis with severe hepatic steatosis, diffuse peripancretic edema consistent with acute interstitial pancreatitis, 7mm left renal lesion, hyperdense cyst versus solid renal neoplasm with recommended nonemergent dedicated CT scan or MRI, bladder wall thicking, - continue to treat pancreatitis with IVF, Pain analgesics, antiemetics and bowel rest. - allowing clear liquids no significant elevation of LFTs for choledocholithiasis. - CT Abd consistent with inflammation of pancreas, no signs of abscess. - MELD score of 10 with 6.0% 3-month mortality on admission now improved Lipase reduced from [id number] (2) Nausea and vomiting: - RESOLVED No signs of bloody emesis - Most likely from pancreatitis - NPO and Zofran 4mg IV PRN (3) Alcohol abuse: - with signs of liver damage with severe hepatic steatosis on imaging - AST: ALT 2:1 ratio No signs of alcohol withdrawal at the present time (4) Kidney lesion: 7mm left renal lesion, hyperdense cyst versus solid renal neoplasm with recommended nonemergent dedicated CT scan or MRI Smoking history risk factor UA ordered to look for blood Renal CT IMPRESSION: 1. Severe hepatic steatosis 2. Peripancreatic edema consistent with acute interstitial pancreatitis 3. Suboptimal dedicated renal CT technique, as insufficient time elapsed from the prior contrast study to make the noncontrast portion of the study a true noncontrast exam. Nevertheless the 7 mm left renal lesion in question appeared hyperdense to renal parenchyma on the noncontrast portion of the study and did not demonstrate significant enhancement. This lesion is felt to represent a hyperdense cyst. A 12 month follow-up study would seem prudent. (5) Hypertension: C/w home Lisinopril 10mg PO, BPs elevated in ED 163/95, creatinine WNL. (6) Parkinson disease: appears currently stable C/w home Carbo/Levo 25mg/100mg. (7) Macrocytic anemia: - Folate and Vit B12 ordered - MCV with 116.8, Hgb 13.1 - Folate 1gm IV ordered - Consistent with alcohol abuse hx (8) Hypomagnesemia: remains low replete Admission and Anticipated Discharge Date Admission Date: February 19, 2020 Subjective Patient is an improvement but persistent epigastric and left upper quadrant he has good reduction in lipase but is still having pain even with clear liquids he is not having tremulousness or signs and symptoms of alcohol withdrawal Review of Systems Review of Systems: Mild distress and fatigue no headache, blurry or double vision no speech or swallowing issues no chest pain, pressure or palpitations no shortness of breath, cough or wheezes Gastric and left upper quadrant abdominal pain mild nausea no vomiting no diarrhea or constipation pain worsened with clear liquids no dysuria, hematuria or frequency no focal joint pain or swelling no back pain, CVA tenderness or radicular pain no bruising, bleeding or rashes no focal signs of weakness or numbness or altered sensation, no neurological signs of withdrawal no complaints or anxiety or depression. Physical Exam Physical Exam: The patient appeared well nourished and normally developed. Vital signs as documented. Head exam is normocephalic atraumatic no scleral icterus Neck is without JVD, thyromegaly, or carotid bruits. Lungs are clear to auscultation, no focal loss of breath sounds Cardiac exam, Rhythm is regular.. No murmurs, rubs or gallops. Abdominal exam reveals normal bowel sounds, soft producible epigastric tenderness and guarding as well as left upper quadrant tenderness and guarding Extremities are nonedematous and both pedal pulses are normal. Neurologic exam is alert and oriented, no focal loss of strength or sensation Skin is without bruises or rashes Psychologically is without concerns for anxiety or depression Results & Data Results & Data ([facility]) Vital Signs (Past 12 Hours) Vital Signs Temp Pulse Pulse Resp BP Pulse Ox 02/21/20 15:35 98.2 F 98 H 20 160/80 H 100 02/21/20 14:20 98 H 02/21/20 12:07 97.7 F 93 H 20 151/81 H 100 02/21/20 08:08 98.2 F 89 18 169/90 H 99 02/21/20 07:00 83 PG Care Time/CCT Total # of Minutes Spent Total Time Spent with Patient: Total time spent is greater than 50% in coordination of care (as documented) at patient's floor/unit and/or counseling patient: Coding Level of Care Code 29117 Subseq Hosp Care Lvl 3 Diagnoses Acute pancreatitis K85.21 Acute pancreatitis complication: uninfected necrosis Pancreatitis type: alcohol induced Nausea and vomiting R11.2 Alcohol abuse F10.10 Kidney lesion N28.9 Hypertension I10 Parkinson disease G20 Macrocytic anemia D53.9 Hypomagnesemia E83.42 (1) Acute pancreatitis Acute pancreatitis complication: uninfected necrosis Pancreatitis type: alcohol induced Qualified Code(s): K85.21 - Alcohol induced acute pancreatitis with uninfected necrosis
[2020-02-21] MEDS: MAGNESIUM SULFATE / D5W 1 GM/100 ML BAG IV SCH ×2 (17:52→19:57)
[2020-02-21] MEDS: ENOXAPARIN INJ 40 MG/0.4 ML SYR SQ SCH (20:02)
[2020-02-22] MEDS: HYDROmorphone INJ 0.5 MG/0.5 ML SYR IV PRN ×6 (01:31→21:53)
[2020-02-22] MEDS: CARBIDOPA/LEVODOPA 25/100MG TAB PO SCH ×4 (01:31→20:17)
[2020-02-22] MEDS: POTASSIUM CHLORIDE 20 MEQ in SODIUM CHLORIDE 0.9% 1000ML 1,000 ML IV SCH ×3 (02:48→20:19)
--- NOTE | 2020-02-22 07:24 | Hospitalist Progress Note ---
Date of Service February 22, 2020 Assessment & Plan (1) Acute pancreatitis: Jorge Coronado is a 59 y/o male with past medical hx of Parkinson's, tobacco abuse, alcohol abuse, HTN, Depression, erectile dysfunction who presented to [facility] ED for abdominal pain. In the ED he was found to have pancre atitis with Lipase greater than 3 times upper limit of normal [place] 4833. CT abd/pelvis 02/19/2020 with severe hepatic steatosis, diffuse peripancretic edema consistent with acute interstitial pancreatitis, 7mm left renal lesion, hyperdense cyst versus solid renal neoplasm with recommended Renal CT performed 02/19/2022 suboptimal however the 7 mm left renal lesion that was in question appeared hyperdense to renal parenchyma on the noncontrast portion of the study and did not demonstrate significant enhancement felt to represent a hyperdense cyst but recommend 12-month follow-up CT CAT scan abdomen pelvis 02/22/2020 to evaluate for pseudocyst is pending at this time - continue to treat pancreatitis with IVF, Pain analgesics, antiemetics and bowel rest. -Return to n.p.o. status on 02/22/2020 due to elevation of lipase and worsening of symptoms -Patient did have elevation of a meld score on presentation he was strongly counseled about alcohol cessation (2) Nausea and vomiting: - RESOLVED No signs of bloody emesis - Most likely from pancreatitis - Zofran 4mg IV PRN (3) Alcohol abuse: - with signs of liver damage with severe hepatic steatosis on imaging - AST: ALT 2:1 ratio No signs of alcohol withdrawal at the present time Patient counseled about alcohol cessation (4) Kidney lesion: 7mm left renal lesion, hyperdense cyst versus solid renal neoplasm with recommended nonemergent dedicated CT scan or MRI Smoking history risk factor 02/20/[address] IMPRESSION: 1. Severe hepatic steatosis 2. Peripancreatic edema consistent with acute interstitial pancreatitis 3. Suboptimal dedicated renal CT technique, as insufficient time elapsed from the prior contrast study to make the noncontrast portion of the study a true noncontrast exam. Nevertheless the 7 mm left renal lesion in question appeared hyperdense to renal parenchyma on the noncontrast portion of the study and did not demonstrate significant enhancement. This lesion is felt to represent a hyperdense cyst. A 12 month follow-up study would seem prudent. (5) Hypertension: C/w home Lisinopril 10mg PO, BPs elevated in ED 163/95, creatinine WNL. (6) Parkinson disease: appears currently stable C/w home Carbo/Levo 25mg/100mg. (7) Macrocytic anemia: - Folate and Vit B12 ordered - MCV with 116.8, Hgb 13.1 - Folate 1gm IV ordered - Consistent with alcohol abuse hx (8) Hypomagnesemia: replete Admission and Anticipated Discharge Date Admission Date: February 19, 2020 Subjective Patient has had a recurrence of abdominal pain. Likely from clear liquid diet. His lipase is gone up slightly from 15 100-18 100 pain is focused in the left upper quadrant. Patient be pending a CT scan to look for pericardiac pseudocyst and he will be reduced to n.p.o. except for ice chips Review of Systems Review of Systems: Mild to moderate distress and fatigue no headache, blurry or double vision no speech or swallowing issues no chest pain, pressure or palpitations no shortness of breath, cough or wheezes Gastric and left upper quadrant abdominal pain mild nausea no vomiting no diarrhea or constipation pain worsened with clear liquids no dysuria, hematuria or frequency no focal joint pain or swelling no back pain, CVA tenderness or radicular pain no bruising, bleeding or rashes no focal signs of weakness or numbness or altered sensation, no neurological signs of withdrawal no complaints or anxiety or depression. Physical Exam Physical Exam: The patient appeared well nourished and normally developed. He is in mild to moderate distress at this time Vital signs as documented. Head exam is normocephalic atraumatic no scleral icterus Neck is without JVD, thyromegaly, or carotid bruits. Lungs are clear to auscultation, no focal loss of breath sounds Cardiac exam, Rhythm is regular.. No murmurs, rubs or gallops. Abdominal exam reveals normal bowel sounds, soft producible epigastric tenderness and guarding as well as left upper quadrant tenderness and guarding Extremities are nonedematous and both pedal pulses are normal. Neurologic exam is alert and oriented, no focal loss of strength or sensation Skin is without bruises or rashes Psychologically is without concerns for anxiety or depression Results & Data Results & Data ([facility]) Vital Signs (Past 12 Hours) Vital Signs Temp Pulse Pulse Resp BP Pulse Ox 02/22/20 07:14 98.1 F 84 18 160/78 H 98 07/19/20 04:05 97.9 F 66 18 91/53 L 93 02/21/20 23:58 82 02/21/20 23:39 97.3 F L 89 20 163/78 H 98 02/21/20 19:40 97.7 F 93 H 20 156/95 H 98 PG Care Time/CCT Total # of Minutes Spent Total Time Spent with Patient: Total time spent is greater than 50% in coordination of care (as documented) at patient's floor/unit and/or counseling patient: Coding Level of Care Code 90709 Subseq Hosp Care Lvl 3 Diagnoses Acute pancreatitis K85.21 Acute pancreatitis complication: uninfected necrosis Pancreatitis type: alcohol induced Nausea and vomiting R11.2 Alcohol abuse F10.10 Kidney lesion N28.9 Hypertension I10 Parkinson disease G20 Macrocytic anemia D53.9 Hypomagnesemia E83.42 (1) Acute pancreatitis Acute pancreatitis complication: uninfected necrosis Pancreatitis type: alcohol induced Qualified Code(s): K85.21 - Alcohol induced acute pancreatitis with uninfected necrosis
[2020-02-22] MEDS: lisinopriL 10 MG TAB PO SCH (08:34)
[2020-02-22] MEDS: THIAMINE HCL 100 MG in SYRINGE 9 ML IV SCH (08:36)
[2020-02-22] MEDS: FOLIC ACID 1 MG in SYRINGE 9.8 ML IV SCH (08:36)
[2020-02-22] MEDS: FAMOTIDINE 20 MG in SYRINGE 3 ML IV SCH (08:37)
[2020-02-22 09:43] LABS: Alanine Aminotransferase 11 U/L (12-78); Albumin Globulin Ratio 0.8 (0.9-2); Albumin Level 2.8 gm/dl (3.4-5.0); Alkaline Phosphatase 119 U/L (45-117); BUN Creatinine Ratio 3.5 (10-20); Bilirubin,Total 0.9 mg/dl (0.2-1); Blood Urea Nitrogen 1 mg/dl (7-18); Calcium 8.1 mg/dl (8.5-10.1); Carbon Dioxide 25 mmol/L (21-32); Chloride 103 mmol/L (98-107); Creatinine Clr Calc Pharmacy 178.2 ml/min; Est GFR (African American) > 150.0; Est GFR (Non-African American) 134.2; Globulin 3.4 gm/dl (2.5-4.0); Glucose 90 mg/dl (70-99); Lipase 1871 U/L (73-393); Sodium 133 mmol/L (136-145); Total Protein 6.2 gm/dl (6.4-8.2)
[2020-02-22 10:16] LABS: Potassium 3.3 mmol/L (3.5-5.1)
[2020-02-22] MEDS: NICOTINE 14 MG/24 HR PATCH TD PRN (13:00)
--- NOTE | 2020-02-22 16:16 | CT Scan Report ---
ABDOMEN AND PELVIS CT WITHOUT CONTRAST CT DOSE: 253.21 mGy.cm HISTORY: Acute pancreatitis. Mid abdominal pain. eval for pancreatic pseudocyst TECHNIQUE: Multiaxial CT images of the abdomen and pelvis were performed without contrast. A dose lo wering technique was utilized adhering to the principles of ALARA. COMPARISON STUDY: Abdomen and pelvis CT 02/19/2020. FINDINGS: Small patchy area of groundglass density within the right middle lobe. This is new compared the prior study and may represent mild inflammatory/infectious change, possibly secondary to aspirat ion. The left lung base is clear. No pneumoperitoneum. No pneumatosis. Healing/healed right lateral n inth rib fracture. Severe hepatic steatosis is again noted. There are few scattered punctate calcific ations within the right hepatic lobe. The unenhanced gallbladder, spleen, and adrenal glands are unre markable. Stable 7 mm hyperdense lesion within the upper pole the left kidney. No renal or ureteral s tones. No hydronephrosis. Mild peripancreatic edema/inflammatory change consistent with acute pancrea titis. This has slightly improved. No focal peripancreatic fluid collections to suggest a pseudocyst. No retroperitoneal lymphadenopathy. There are 2 punctate calcifications adjacent to the pancreatic h ead. These remain unchanged. Normal bladder. Trace pelvic free fluid. Suboptimal evaluation for bowel pathology due to the lack of intravenous and oral contrast. However, there is no definite bowel wall thickening or obstruction. Normal appendix. IMPRESSION: 1. Mild peripancreatic edema/inflammatory change consistent with acute pancreatitis. This has slightl y improved. 2. No focal peripancreatic fluid collections to suggest a pseudocyst. 3. Severe hepatic steatosis. 4. A new small patchy area of groundglass density within the right middle lobe. This may represent mi ld inflammatory/infectious change. 5. No bowel wall thickening or obstruction. ACT 112: Negative or not required by law. Electronically signed by: Deandre Ko M.D. 02/22/2020 4:15 PM
--- NOTE | 2020-02-22 18:28 | Ultrasound Report ---
ABDOMINAL ULTRASOUND, RIGHT UPPER QUADRANT HISTORY: Epigastric pain. Pancreatitis.. COMPARISON: Abdomen and pelvis CT 02/22/2020. FINDINGS: Pancreas: Heterogeneous appearance of the pancreas consistent with the known acute pancreatitis. The main pancreatic duct measures 2 mm in diameter. No focal peripancreatic fluid collections identified. Liver: The liver is echogenic consistent with fatty change. Punctate calcifications within the right hepatic lobe. Gallbladder: No gallbladder wall thickening. No gallstones. CBD: 5 mm. Right kidney: No hydronephrosis. IMPRESSION: 1. Heterogeneous appearance of the pancreas consistent with the patient's known acute pancreatitis. N o peripancreatic fluid collections. 2. Normal gallbladder. No gallstones. 3. Hepatic steatosis ACT 112: Negative or not required by law. Electronically signed by: Deandre Ko M.D. 02/22/2020 6:27 PM
[2020-02-22] MEDS: ENOXAPARIN INJ 40 MG/0.4 ML SYR SQ SCH (20:17)
[2020-02-23] MEDS: CARBIDOPA/LEVODOPA 25/100MG TAB PO SCH ×4 (02:12→20:09)
[2020-02-23] MEDS: POTASSIUM CHLORIDE 20 MEQ in SODIUM CHLORIDE 0.9% 1000ML 1,000 ML IV SCH ×3 (05:25→20:14)
[2020-02-23] MEDS: HYDROmorphone INJ 0.5 MG/0.5 ML SYR IV PRN ×4 (05:28→22:14)
[2020-02-23] MEDS: lisinopriL 10 MG TAB PO SCH (07:39)
[2020-02-23] MEDS: FOLIC ACID 1 MG in SYRINGE 9.8 ML IV SCH (07:40)
[2020-02-23] MEDS: THIAMINE HCL 100 MG in SYRINGE 9 ML IV SCH (07:40)
[2020-02-23] MEDS: FAMOTIDINE 20 MG in SYRINGE 3 ML IV SCH (07:42)
[2020-02-23 07:53] LABS: Alanine Aminotransferase 10 U/L (12-78); Aspartate Aminotransferase 61 U/L (15-37); Blood Urea Nitrogen < 1 mg/dl (7-18); Calcium 8.2 mg/dl (8.5-10.1); Carbon Dioxide 27 mmol/L (21-32); Chloride 100 mmol/L (98-107); Creatinine Clr Calc Pharmacy 173.5 ml/min; Est GFR (African American) > 150.0; Est GFR (Non-African American) 132.8; Glucose 71 mg/dl (70-99); Lipase 637 U/L (73-393); Magnesium 1.5 mg/dl (1.8-2.4); Potassium 3.1 mmol/L (3.5-5.1); Sodium 135 mmol/L (136-145)
[2020-02-23 07:56] LABS: Albumin Globulin Ratio 0.9 (0.9-2); Alkaline Phosphatase 125 U/L (45-117); Globulin 3.5 gm/dl (2.5-4.0); Total Protein 6.5 gm/dl (6.4-8.2)
[2020-02-23 11:32] LABS: Chol HDL Ratio 5; Cholesterol 118 mg/dl (0-200); HDL Cholesterol 26 mg/dl; LDL Cholesterol Calculated 73 mg/dl; Triglycerides 96 mg/dl (0-150); VLDL Cholesterol 19 mg/dl
[2020-02-23] MEDS ORDERED: POLYETHYLENE (MIRALAX) 17 GM PACK PO ONE (13:15)
--- NOTE | 2020-02-23 15:46 | Hospitalist Progress Note ---
Date of Service February 23, 2020 Assessment & Plan (1) Acute pancreatitis: Admission and Anticipated Discharge Date Admission Date: (1) Acute pancreatitis: Jorge Coronado is a 59 y/o male with past medical hx of Parkinson's, tobacco abuse, alcohol abuse, HTN, Depression, erectile dysfunction who presented to [facility] ED for abdominal pain. In the ED he was found to have pancreatitis with Lipase greater than 3 times upper limit of normal at 4833. - CT abd/pelvis 02/19/2020 with severe hepatic steatosis, diffuse peripancretic edema consistent with acute interstitial pancreatitis, 7mm left renal lesion, hyperdense cyst versus solid renal neoplasm with recommended - continue to treat pancreatitis with IVF, Pain analgesics, antiemetics and advance diet as tolerated -Patient did have elevation of a meld score on presentation he was strongly counseled about alcohol cessation (2) Nausea and vomiting: - one episode today after normal diet for lunch could be due to post pancreatitis ileus vs. 2/2 pain medications - Zofran 4mg IV PRN - continue to advance diet as tolerated - ordered Miralax 3 doses this afternoon - continue to evaluate (3) Alcohol abuse: - with signs of liver damage with severe hepatic steatosis on imaging - AST: ALT 2:1 ratio No signs of alcohol withdrawal at the present time Patient counseled about alcohol cessation (4) Kidney lesion: - Renal CT performed 02/19/2022 suboptimal however the 7 mm left renal lesion that was in question appeared hyperdense to renal parenchyma on the noncontrast portion of the study and did not demonstrate significant enhancement felt to represent a hyperdense cyst but recommend 12-month follow-up dedicated CT scan or MRI - Smoking history risk factor (5) Hypertension: C/w home Lisinopril 10mg PO, BPs elevated in ED 163/95, creatinine WNL. (6) Parkinson disease: appears currently stable C/w home Carbo/Levo 25mg/100mg. (7) Macrocytic anemia: - Folate and Vit B12 ordered - MCV with 116.8, Hgb 13.1 - Folate 1gm IV ordered - Consistent with alcohol abuse hx (8) Hypomagnesemia: replete DVT: lovenox Code: full Diet: clear liquid - advance as tolerated Supervising Physician Co-Signing Physician Notes I personally examined the patient and verified all pagan points of history and exam, discussed case, and agree with decision making with Dr Avila. was feeling better when seen by R2 this AM - then when i saw him after lunch - loose stools, nausea, vomiting. later revisited in evening - explosive diarrhea shortly after i saw him, food aversion - at least as it relates to liquids. vitals noted nad although appears forlorn, nontoxic appearing. breathing unlabored no accessory muscles good effort no distress. abd soft mild diffuse tenderness earlier, this afternoon a little firmer ongoing mild diffuse tenderness, no rebound either time. no peritoneal signs. acute pancreatitis - EtOH working ddx on etiology. TG's pending, no overt biliary obstruction. pancreatitis seems to be improving - suspect abdominal pain and nuasea worsening relates to ileus/bowel pain - bowel regimen, supportive care, serial exams. later advanced diet to regular so as to allow for things like toast, crackers, cereal, etc. continue to follow, otherwise as above Subjective Mr. Jorge Coronado was doing okay this morning. He had liquids this morning and had no nausea or vomiting with this, we advanced his diet through the day and he did vomit. When asked about his ETOH consumption he explained that he averages 10 drinks per week and usually 2-3 a day. He did not feel that he had increased alcohol consumption prior to this hospitalization and has never had pancreatitis in the past. Review of Systems Review of Systems: Constitutional: denies fevers, chills Cardiac: denies chest pain or palpitations GI: denies nausea, vomiting admits slight abdominal pain (motioned to the epigastric region) : denies urinary frequency, urgency or pain w/ urination Pulmonary: denies cough, shortness of breath Physical Exam Constitutional: thin male no acute distress ENMT: external ear and nose normal, oropharynx normal Neck: normal visual inspection Respiratory: normal respiratory effort, lungs clear to auscultation Cardiovascular: RRR, no murmur, no edema Gastrointestinal (Abdomen): - normal bowel sounds - slight abdominal pain, ttp in the epigastric region Skin: no rashes, warm and dry Psychiatric: Orientation: alert Affect: euthymic affect Results & Data Results & Data ([facility]) Vital Signs (Past 12 Hours) Vital Signs Temp Pulse Resp BP Pulse Ox 02/23/20 15:10 36.8 C 98 H 20 152/97 H 92 02/23/20 11:12 36.6 C 78 18 155/88 H 100 02/23/20 07:30 36.7 C 88 18 173/92 H 99 02/23/20 03:50 36.7 C 84 20 148/81 H 98 CBC Results Results Complete Blood Count Results: RBC 2.88 M/uL (4.7-6.1) L 02/20/20 WBC 5.33 K/uL (4.8-10.8) 02/20/20 Hgb 11.7 g/dL (14.0-18.0) L 02/20/20 Hct 34.0 % (42-52) L 02/20/20 Plt Count 176 K/uL (130-400) 02/20/20 Chemistry (BMP) Results BMP Results: Sodium 135 mmol/L (136-145) L 02/23/20 Potassium 3.1 mmol/L (3.5-5.1) L 02/23/20 Chloride 100 mmol/L (98-107) 02/23/20 BUN < 1 mg/dl (7-18) L 02/23/20 Creatinine 0.38 mg/dl (0.6-1.4) L 02/23/20 Glucose 71 mg/dl (70-99) 02/23/20 Resident Activity Tracking Resident Involvement: Resident Care Provided Care Provided: Adult [facility] Medicine (1) Acute pancreatitis Acute pancreatitis complication: uninfected necrosis Pancreatitis type: alcohol induced Qualified Code(s): K85.21 - Alcohol induced acute pancreatitis with uninfected necrosis
[2020-02-23] MEDS: NICOTINE 14 MG/24 HR PATCH TD PRN (18:24)
--- NOTE | 2020-02-23 19:14 | Billing Data ---
Date of Service February 23, 2020 Coding Level of Care Code 88690 Subseq Hosp Care Lvl 3
[2020-02-23] MEDS: ENOXAPARIN INJ 40 MG/0.4 ML SYR SQ SCH (20:09)
[2020-02-23] MEDS ORDERED: Nursing to Pharmacy Communication SCH (22:00)
[2020-02-24] MEDS: CARBIDOPA/LEVODOPA 25/100MG TAB PO SCH ×3 (01:42→14:01)
[2020-02-24] MEDS: POTASSIUM CHLORIDE 20 MEQ in SODIUM CHLORIDE 0.9% 1000ML 1,000 ML IV SCH ×2 (04:08→12:07)
[2020-02-24 07:08] LABS: Basophils # (auto) 0.03 K/uL (0-0.2); Basophils % (auto) 0.4 %; Eosinophils # (auto) 0.24 K/uL (0-0.5); Eosinophils % (auto) 3.6 %; Hematocrit (blood only) 31.2 % (42-52); Hemoglobin 10.6 g/dL (14.0-18.0); Immature Granulocytes # (auto) 0.01 K/uL (0.00-0.02); Immature Granulocytes % (auto) 0.1 %; Lymphocytes # (auto) 1.27 K/uL (1.2-3.4); Lymphocytes % (auto) 18.9 %; Mean Corpuscular Volume 117.7 fL (80-100); Mean Platelet Volume 9.7 fL (7.4-10.4); Monocytes # (auto) 1.09 K/uL (0.11-0.59); Monocytes % (auto) 16.2 %; Neutrophils # (auto) 4.08 K/uL (1.4-6.5); Neutrophils % (auto) 60.8 %; Platelet Count 242 K/uL (130-400); RDW Coefficient of Variation 15.4 % (11.5-14.5); RDW Standard Deviation 64.4 fL (36.4-46.3); Red Blood Count 2.65 M/uL (4.7-6.1); White Blood Count 6.72 K/uL (4.8-10.8)
[2020-02-24] MEDS: lisinopriL 10 MG TAB PO SCH (07:24)
[2020-02-24 07:42] LABS: Blood Urea Nitrogen < 1 mg/dl (7-18); Calcium 8.2 mg/dl (8.5-10.1); Carbon Dioxide 24 mmol/L (21-32); Chloride 105 mmol/L (98-107); Creatinine Clr Calc Pharmacy 176.4 ml/min; Est GFR (African American) > 150.0; Est GFR (Non-African American) 134.2; Glucose 74 mg/dl (70-99); Potassium 3.5 mmol/L (3.5-5.1); Sodium 137 mmol/L (136-145)
[2020-02-24 07:44] LABS: Macrocytosis Present; Target Cells 1+
[2020-02-24] MEDS: HYDROmorphone INJ 0.5 MG/0.5 ML SYR IV PRN (08:59)
[2020-02-24] MEDS: FOLIC ACID 1 MG in SYRINGE 9.8 ML IV SCH (09:00)
[2020-02-24] MEDS: THIAMINE HCL 100 MG in SYRINGE 9 ML IV SCH (09:00)
[2020-02-24] MEDS: FAMOTIDINE 20 MG in SYRINGE 3 ML IV SCH (09:00)
[2020-02-24] MEDS ORDERED: OXYCODONE HCL IR 5 MG TAB (IMMEDIATE RELEASE) PO STA (17:08)
--- NOTE | 2020-02-24 19:39 | Discharge Summary ---
Date of Service February 24, 2020 Admission HPI Per Admitting Provider Jorge Coronado is a 59 y/o male with past medical hx of Parkinson's, tobacco abuse, alcohol abuse, HTN, Depression, erectile dysfunction who presented to [facility] ED for abdominal pain. He notes pain started about 5 days ago. It is located to his epigastric area, he denies radiation. He describes pain as stabbing. He notes he has had nausea and vomiting for the past 2 days with limited PO intake. He notes nausea and vomiting is worse with any food or liquid intake. He denies bloody emesis, black/blood stools. He notes pain gradually became worse and since wasn't able to tolerate PO intake he came here to ED for evaluation. He denies acute fever/chills, chest pain, shortness of breath. He notes currently in ED he feels same, has no active vomiting and denies current nausea. He notes not being able to take his Parkinson's medication for about 2 days. He also notes his last drink of alcohol was about 2 days ago as well. He notes usually drinks a 6 pack of Vicente light per day. He denies prior history of alcohol withdrawal or symptoms when going a couple days without drinking. He notes a history of hallucinations visual that is attributed to Parkinson's denies that this is from alcohol withdrawal, denies any current. In the ED he was found to have pancreatitis with Lipase greater than 3 times upper limit of normal at 4833. AST 66 ALT 26. Hgb 13.1 and MCV 116.8, INR 1.2, T Bili 1.5, Mag 1.6, K 3.5. CT abd/pelvis with severe hepatic steatosis, diffuse peripancretic edema consistent with acute interstitial pancreatitis, 7mm left renal lesion, hyperdense cyst versus solid renal neoplasm with recommended nonemergent dedicated CT scan or MRI, bladder wall thicking, CXR w NAD. In ED he received Mag 1gm IV, NSS 1L Bolus and then NSS @ 125mL/hr, Zofran 4mg IV x1, Morphine 2mg IV x2. Admission Exam Per Admitting Provider Constitutional: + thin, + disheveled, cooperative and comfortable; no acute distress appears older than stated age Eyes: PERRL, conjunctivae normal, anicteric sclerae ENMT: external ear and nose normal, oropharynx normal Neck: normal visual inspection and trachea midline Respiratory: normal respiratory effort, lungs clear to auscultation Cardiovascular: distant heart sounds; no edema Gastrointestinal (Abdomen): Inspection/Auscultation: caput medusae absent and Mehta-Merida sign absent Percussion/Palpation: + abdomen tender (epigastric without rebound) and + guarding (voluntary); no ascites No candie sign Musculoskeletal: Head/Neck/Chest: normocephalic and head atraumatic Skin: erythema across upper chest not consistent with infection Neurologic: moves all extremities and awake; no focal motor deficits Motor/Sensory: no tremor and no asterixis Psychiatric: Orientation: alert and oriented x 3 Affect: + depressed affect and + flat affect Mood: + depressed mood Principal Diagnosis acute pancreatitis - most likely EtOH related Discharge Exam ENMT external ear and nose normal, oropharynx normal Neck normal visual inspection Respiratory normal respiratory effort, lungs clear to auscultation Cardiovascular RRR, no murmur, no edema Skin no rashes, warm and dry Psychiatric Orientation: alert Affect: euthymic affect Discharge Data Allergies Allergy/AdvReac Type Severity Reaction Status Date / Time No Known Allergies Allergy Verified 02/19/20 21:22 Consultations 02/19/20 21:27 ED Decision to Admit Stat 02/19/20 23:54 Consult Case Management - Discharge Planning Routine Ordered Studies 02/19/20 19:29 CT abd pelvis IV con only Stat 02/20/20 07:00 CT renal wo/w con Routine 02/22/20 14:49 CT abd pelvis wo con Routine US pancreas Routine Hospital Course (1) Acute pancreatitis: Jorge Coronado is a 59 y/o male with past medical hx of Parkinson's, tobacco abuse, alcohol abuse, HTN, Depression, erectile dysfunction who presented to [facility] ED for abdominal pain. In the ED he was found to have pancreatitis with Lipase greater than 3 times upper limit of normal at 4833. AST 66 ALT 26. Hgb 13.1 and MCV 116.8, INR 1.2, T Bili 1.5, Mag 1.6, K 3.5. CT abd/pelvis with severe hepatic steatosis, diffuse peripancretic edema consistent with acute interstitial pancreatitis, 7mm left renal lesion, hyperdense cyst versus solid renal neoplasm with recommended nonemergent dedicated CT scan or MRI, bladder wall thicking, CXR w NAD. In ED he received Mag 1gm IV, NSS 1L Bolus and then NSS @ 125mL/hr, Zofran 4mg IV x1, Morphine 2mg IV x2. - Treated pancreatitis with IVF, analgesics, and bowel rest. - NPO initially and advanced to a bland diet over hospital course - Had some nausea initially but this improved and was without nausea on day of discharge - Pain improved over hospital course - No signs of acute hepatitis, most likely etiology is pancreatitis from alcohol intake. - Lipase 4833 on initial; improved over course and stopped monitoring when approx. 600 - CT Abd consistent with inflammation of pancreas, no signs of abscess. did show severe hepatic steatosis, and stable kidney lesion - initial MELD score of 10 with 6.0% 3-month mortality. ETOH use - patient states that they drink approx. 10 drinks per week and no increased intake prior to admission - no signs of withdrawal during hospitalization - discussed that he should abstain from alcohol at least in the months following this event to prevent recurrence of pancreatitis Parkinson's - continued home meds and discharged on home regimen Total Time Total Time Spent Total Time Spent (In Minutes): <30 Discharge Plan Discharge Items Patient Disposition: Home - Self-Care Reason For Visit: PANCREATITIS Discharge Diagnosis: Pancreatitis Activity: Per Instructions section Non-emergency contact: Primary Care Provider Call non-emergency contact if: your symptoms worsen Follow-up/Referrals: Albania Vasquez DO [Primary Care Provider] - Diet: Low Fat Addtl Attending Provider Instructions: Pancreatitis You came in to the hospital for abdominal pain, and were found to have pancreatitis based on your symptoms, imaging, and labs. There are several causes of pancreatitis, it is possible that your pancreatitis could be due to alcohol or other potentially unclear cause. As we discussed it will be important to avoid alcohol for at least 6 months after leaving the hospital to avoid a recu rrence of pancreatitis. It will also be important for you to avoid fatty or protein rich foods. Try to stick to a bland diet, with breads, pasta and easily digestible foods initially and slowly transition back to a normal diet after a week. Hepatic Steatosis (fatty liver) You were found to have something called hepatic steatosis on your CT scan and this could be from multiple causes and will need to be followed up with your primary doctor. Kidney lesion You were found to have a kidney lesion on CT that was unchanged in size from prior imaging. Follow up You will need to follow up with your primary doctor Dr. Vasquez in the next 7 days to review your hospitalization and to follow up on the kidney lesion that was noted on imaging. Return precautions If you are having worsening abdominal pain, or are not able to tolerate the diet. Pending Studies at Discharge: No Stand-Alone Forms: My [facility], Smoking Cessation Medications and DC Order Prescriptions: Continued lisinopril 10 mg tablet 10 mg PO DAILY Qty: 30 RF: 5 duloxetine [Cymbalta] 60 mg capsule,delayed release(DR/EC) 60 mg PO DAILY RF: 0 carbidopa-levodopa [Sinemet] 25-100 mg tablet 1 tab PO DIRECTED RF: 0 Discharge Orders: Discharge Order (Routine); Ordered 02/24/20 Ordered By: Dav Avila Admission Data Admit Date/Time: 02/19/20 22:18 Attending Provider: Giovani Espinosa Admit Provider: Hilario Tobin Primary Care Provider: [place]ia Vasquez Other Providers: Freddy Thomason ; Tommy Rueda Other Interventions: Discharge Summary Assessment (RN) Last Done: 02/24/20 18:15 Supervising Physician Co-Signing Physician Notes I personally examined the patient and verified all pagan points of history and exam, discussed case, and agree with decision making with Dr Avila. feeling better pain improved, ate OK without pain/nausea/diarrhea. vitals noted nad heent nc at mmm. breathing unlabored no accessory muscles good effort no distress. abd soft mild diffuse tenderness but better than yesterday no guarding no rebound no rigidity acute pancreatitis - EtOH is working ddx on etiology. no biliary obstruction TGs low. eating better / stable for home. outpt f/u stable for home as above CBC Results Results Complete Blood Count Results: RBC 2.65 M/uL (4.7-6.1) L 02/24/20 WBC 6.72 K/uL (4.8-10.8) 02/24/20 Hgb 10.6 g/dL (14.0-18.0) L 02/24/20 Hct 31.2 % (42-52) L 02/24/20 Plt Count 242 K/uL (130-400) 02/24/20 Results BMP Results: Sodium 137 mmol/L (136-145) 02/24/20 Potassium 3.5 mmol/L (3.5-5.1) 02/24/20 Chloride 105 mmol/L (98-107) 02/24/20 BUN < 1 mg/dl (7-18) L 02/24/20 Creatinine 0.37 mg/dl (0.6-1.4) L 02/24/20 Glucose 74 mg/dl (70-99) 02/24/20 Resident Activity Tracking Resident Involvement: Resident Care Provided Care Provided: Adult [facility]
--- NOTE | 2020-02-24 19:50 | Billing Data ---
Date of Service February 24, 2020 Coding Level of Care Code D/C Day Management <30 mins
[2020-02-24] MEDS ORDERED: NSS + 20MEQ KCL 20 MEQ/1,000 ML BAG IV SCH (20:29)
[2020-02-25] MEDS ORDERED: CYANOCOBALAMIN 500 MCG TABLET (VITAMIN B-12) PO SCH (09:00)
== END 2020-02-24 20:40 | disposition home or self-care (01) | DRG 440 ==
LOC: ED 17:54 → SUATTDRO 22:18 → 2W 22:18

== ENCOUNTER 2020-07-22 18:00 | Inpatient (IN) ==
[~2020-07-22 18:00] MED LIST: KETAMINE HCL INJ 50 MG/ML 10 ML VIAL ONE; SUCCINYLCHOLINE CHLORIDE 20 MG/ML 10 ML VIAL IV ONE
[2020-07-22] MEDS ORDERED: THIAMINE HCL 100 MG in SYRINGE 9 ML IV STA (18:05)
[2020-07-22] MEDS ORDERED: SODIUM CHLORIDE 0.9% 1000ML 2,000 ML IV ONE (18:05)
[2020-07-22] MEDS ORDERED: FOLIC ACID 1 MG in SYRINGE 9.8 ML IV STA (18:05)
[2020-07-22] MEDS ORDERED: levETIRAcetam 1,000 MG in 0.9 % SODIUM CHLORIDE 100 ML IV STA (18:08)
[2020-07-22 18:49] LABS: iSTAT Creatinine 0.9 mg/dl (0.6-1.3); iSTAT Hemoglobin 16.3 g/dl (14.0-18.0); iSTAT Ionized Calcium 1.05 mmol/l (1.12-1.32); iSTAT Potassium 3.1 mmol/L (3.3-5.0)
--- NOTE | 2020-07-22 18:54 | Emergency Department Note ---
Impression & Plan Status epilepticus, Leukocytosis, Metabolic acidosis, Acute hypokalemia, Altered mental status, Acidosis, lactic ED Provider Note NAME: RIMA COLLAZO AGE: 60 SEX: M : 1960 ARRIVES VIA: Ambulance INFORMANT: Patient, EMS ED PROVIDER(S): Giovani Sparks DO CHIEF COMPLAINT: Altered mental status HPI: EMS was called to scene for altered mental status and unresponsive. Upon arrival they found him to be seizing. He received a total of 5 mg IV of Versed and 2 mg of Ativan. That he had a total of 3 seizures. All 3 finally terminated. He eventually went into SVT and was given a total of 18 mg of adenosine and broke. In route he became apneic and they bagged him for about 2 minutes. Since then he has been gradually waking up. He is known to be in al cohol daily increase the amount of alcohol intake since June. History is otherwise limited secondary to mentation ROS: History is limited secondary to mentation PAST MEDICAL HISTORY:See Below PAST SURGICAL HISTORY:See Below FAMILY HISTORY:See Below SOCIAL HISTORY:See Below HOME MEDICATIONS:See Below ALLERGIES:See Below VITALS:See Below PHYSICAL EXAMINATION: GENERAL: Lying in bed, ill-appearing on nonrebreather EYE EXAM: normal conjunctiva. PERRL OROPHARYNX: mucous membranes are dry NECK: supple, no nuchal rigidity, no adenopathy, non-tender LUNGS: Clear to auscultation. Normal chest wall mechanics HEART: no murmurs, S1 normal and S2 normal ABDOMEN: abdomen soft, non-tender, normo-active bowel sounds, no masses, no rebound or guarding. SKIN: Full covering lower extremities UPPER EXTREMITIES: upper extremities are grossly normal. LOWER EXTREMITIES: No pitting edema. NEURO EXAM: Awake looking around moans to painful stimuli moving upper and lower extremities nonfocal MEDICAL DECISION MAKING: Patient is a 60-year-old male who is brought into the ER by EMS following 3 seizures, Ativan, Versed and SVT following adenosine broke into a sinus tachycardia. Upon arrival he was confused nonverbal but staring around moving all extremities. IV was established blood work was obtained. Labs show leukocytosis of 14,000. No significant anemia. INR was unremarkable. VBG with a pH of 7.25. BMP with mild hypokalemia. Lactate elevated at 7.2. LFTs bilir ubin was unremarkable. Patient given IV fluids. Pro-Isma was normal. UA was clean. Covid was negative. Alcohol was negative. He is a alcoholic I do favor that this likely alcohol withdrawal seizures as he was cutting down on his drinking. CT head was negative. Chest x-ray unremarkable. Patient was updated bedside and admitted to the hospital for further work-up. He remained on a nonrebreather for the majority of his stay due to mentation likely secondary to a postictal state and Versed and Ativan. He was given additional dose of Ativan while in the ER. Is also given thiamine and folic acid. Triage Nursing notes reviewed. Prior medical records reviewed Vital Signs: reviewed and remarkable for no significant abnormalities Differential diagnosis: Differential diagnoses includes but is not limited to toxic, metabolic, infectious, traumatic, cardiac, neurologic, hematologic, psychiatric and inflammatory etiologies. ER treatment provided: See below Diagnostics interpreted by me: ECG: Sinus tachycardia rate of [address] depressions in the inferior leads and lateral leads Cardiac Monitoring: An order was placed for continuous cardiac monitoring. The monitor shows a rate of 98 with sinus rhythm. Laboratory studies: As stated above and show below. Imaging studies: CT head shows no acute pathology Chest x-ray was unremarkable Consultation(s): D/w the hospitalist for further evaluation ED COURSE: Procedures: none Critical Care: I have personally spent 32 minutes of critical care time in the direct management of this patient. This includes bedside care, interpretation of diagnostic studies, and testing, discussion with consultants, patient, and [facility] ly members, and other required patient management activities. This 32 minutes is in excess of all separately billable procedures. Past Med/Surg History Medical History (Updated 07/22/20 @ 22:04 by Jennifer Cordon DO) Alcohol abuse Cervical spondylosis Depression Erectile dysfunction Hypertension Parkinson disease Vertigo Surgical History Hx of neck surgery (05/2018) Status post tooth extraction Family History (Updated 06/10/20 @ 14:09 by [place]ia Vasquez DO) Aunt Parkinson disease Denies family history of Ovarian cancer Prostate cancer Myocardial infarction Breast cancer Lung cancer Colorectal cancer Social History Smoking Status: Current every day smoker Tobacco Type: Cigarettes Age Started Using Tobacco: 17; packs per day: 1; Cigarettes Per Day: 20; Second Hand Exposure: No; Do You Dip or Chew Tobacco: No; Hx Alcohol Use: Yes Alcohol type: beer Alcohol Intake Frequency Comment: 2-3 beers per day; h/o 1/2 gallon odessa per week Hx Substance Use: Yes Last Used Substance: Unknown Preferred Language: Greek Communication Ability: Effective Visual Impairment: No Limitations Hearing Ability: Normal Web Designer Required: No Beliefs That Will Affect Care: None marital status: Single Current Living Situation: Other Current Living Situation Comment: s/o current occupational status: disabled Other Information That Helps Us Care for You: No Feels Safe at Home: Yes Safety Concerns: Feels Safe At This Time Childhood Exposure to Second-Hand Smoke: Yes Diet Comment: regular caffeine: No during the past year weight has: remained stable Dental Care, Regularly: No Physical Activity Frequency: Does not Exercise Seatbelt Use: always Sunscreen Use: No Assistive Devices: None Allergies Allergies Allergy/AdvReac Type Severity Reaction Status Date / Time No Known Drug Allergies Allergy Verified 07/22/20 19:29 Home Meds Home Medications Medication Instructions Recorded Confirmed duloxetine 60 mg capsule,delayed 60 mg PO QAM 05/16/19 07/22/20 release lisinopril 10 mg PO QAM 07/22/20 07/22/20 Previous Rx's Medication Instructions Recorded carbidopa 25 mg-levodopa 100 mg 1 tab PO DIRECTED #120 tab 06/18/20 tablet Results & Data (ED) Vital Signs Vital Signs - 24 hr 07/22/20 18:00 07/22/20 18:15 07/22/20 18:30 Temperature 36.8 C Temperature Source Rectal Pulse Rate 105 H 109 H 109 H Pulse Rate from SpO2 Sensor 110 H 108 H Respiratory Rate 18 18 18 Respiratory Effort / Characteristics Blood Pressure 150/85 H 142/89 H 143/89 H Blood Pressure Mean 106 117 119 Pulse Oximetry 97 100 100 Oxygen Delivery Method Non-rebreather Oxygen Flow Rate 15 15 Sepsis Recent Fever Within 48 Hours No Sepsis New/Unexplained Change in Mental Status Yes Sepsis Action Taken by Nursing No Action Required Oxygen Flow Rate - Titration 07/22/20 18:45 07/22/20 19:06 07/22/20 19:08 Temperature Temperature Source Pulse Rate Pulse Rate from SpO2 Sensor 114 H Respiratory Rate 18 Respiratory Effort / Characteristics Blood Pressure 143/87 H Blood Pressure Mean 102 Pulse Oximetry 100 100 100 Oxygen Delivery Method Non-rebreather Non-rebreather Non-rebreather Oxygen Flow Rate 15 15 Sepsis Recent Fever Within 48 Hours Sepsis New/Unexplained Change in Mental Status Sepsis Action Taken by Nursing Oxygen Flow Rate - Titration 15 07/22/20 19:09 07/22/20 19:15 07/22/20 19:16 Temperature Temperature Source Pulse Rate 119 H 112 H Pulse Rate from SpO2 Sensor 118 H 113 H Respiratory Rate 18 22 21 Respiratory Effort / Characteristics Spontaneous Blood Pressure 135/86 Blood Pressure Mean 98 Pulse Oximetry 100 100 100 Oxygen Delivery Method Non-rebreather Non-rebreather Non-rebreather Oxygen Flow Rate 15 15 15 Sepsis Recent Fever Within 48 Hours Sepsis New/Unexplained Change in Mental Status Sepsis Action Taken by Nursing Oxygen Flow Rate - Titration 07/22/20 19:30 07/22/20 19:31 07/22/20 19:45 Temperature Temperature Source Pulse Rate 106 H 100 H 122 H Pulse Rate from SpO2 Sensor 106 H 101 H 119 H Respiratory Rate 21 23 20 Respiratory Effort / Characteristics Blood Pressure 139/86 140/97 Blood Pressure Mean 105 110 Pulse Oximetry 100 100 100 Oxygen Delivery Method Non-rebreather Non-rebreather Non-rebreather Oxygen Flow Rate 15 15 15 Sepsis Recent Fever Within 48 Hours Sepsis New/Unexplained Change in Mental Status Sepsis Action Taken by Nursing Oxygen Flow Rate - Titration 07/22/20 19:46 07/22/20 20:00 07/22/20 20:01 Temperature Temperature Source Pulse Rate 114 H 107 H 107 H Pulse Rate from SpO2 Sensor 119 H 109 H 108 H Respiratory Rate 20 20 18 Respiratory Effort / Characteristics Non-Labored Spontaneous Blood Pressure 148/102 H Blood Pressure Mean 118 Pulse Oximetry 100 100 100 Oxygen Delivery Method Non-rebreather Non-rebreather Non-rebreather Oxygen Flow Rate 15 15 15 Sepsis Recent Fever Within 48 Hours Sepsis New/Unexplained Change in Mental Status Sepsis Action Taken by Nursing Oxygen Flow Rate - Titration 07/22/20 20:15 07/22/20 20:16 Temperature Temperature Source Pulse Rate 101 H 101 H Pulse Rate from SpO2 Sensor 101 H 101 H Respiratory Rate 21 18 Respiratory Effort / Characteristics Blood Pressure 140/92 Blood Pressure Mean 113 Pulse Oximetry 100 100 Oxygen Delivery Method Nasal Cannula Nasal Cannula Oxygen Flow Rate 4 4 Sepsis Recent Fever Within 48 Hours Sepsis New/Unexplained Change in Mental Status Sepsis Action Taken by Nursing Oxygen Flow Rate - Titration Laboratory Data Result diagrams: 07/22/20 18:40 07/22/20 18:40 Lab Results 07/22/20 07/22/20 07/22/20 Range/Units 18:35 18:40 18:40 WBC (4.8-10.8) K/uL RBC (4.7-6.1) M/uL Hgb (14.0-18.0) g/dL POC Hgb 16.3 (14.0-18.0) g/dl Hct (42-52) % POC Hct 48 (42-52) % MCV (80-100) fL MCH (25-34) pg MCHC (32-36) g/dL RDW Std Deviation (36.4-46.3) fL RDW Coeff of Brianda (11.5-14.5) % Plt Count (130-400) K/uL MPV (7.4-10.4) fL Immature Gran % (Auto) % Neut % (Auto) % Lymph % (Auto) % [place] % (Auto) % Eos % (Auto) % Baso % (Auto) % Neut # (Auto) (1.4-6.5) K/uL Lymph # (Auto) (1.2-3.4) K/uL [place] # (Auto) (0.11-0.59) K/uL Eos # (Auto) (0-0.5) K/uL Baso # (Auto) (0-0.2) K/uL Immature Gran # (Auto) (0.00-0.02) K/uL Platelet Estimate (Normal) PT (9.0-12.0) Seconds INR (0.9-1.1) APTT (21.0-31.0) Seconds PTT Ratio VBG pH (7.36-7.41) VBG pCO2 (38-50) mmHg VBG pO2 mmHg VBG HCO3 mmol/L VBG O2 Saturation % VBG Base Excess mEq/L Barometric Pressure mm/Hg POC Sodium 138 (135-144) mmol/L Sodium 140 (136-145) mmol/L POC Potassium 3.1 L (3.3-5.0) mmol/L Potassium 3.1 L (3.5-5.1) mmol/L POC Chloride 103 (101-112) mmol/L Chloride 103 (98-107) mmol/L Carbon Dioxide 23 (21-32) mmol/L POC Total CO2 24 (24-31) mmol/L Anion Gap 14.0 H (3-11) POC Anion Gap 16.0 (16-25) mmol/L POC BUN 19 H (7-18) mg/dl BUN 15 (7-18) mg/dl Creatinine 1.17 (0.6-1.4) mg/dl POC Creatinine 0.9 (0.6-1.3) mg/dl Est Cr Clr Drug Dosing Not Reportable Est GFR ( Amer) 78.1 Est GFR (Non-Af Amer) 67.4 BUN/Creatinine Ratio 13.0 (10-20) Glucose 156 H (70-99) mg/dl POC Glucose (other) 147 H (70-99) mg/dl Lactate (0.4-2.0) mmol/L Calcium 9.4 (8.5-10.1) mg/dl POC Ioniz Calcium Meme 1.05 L (1.12-1.32) mmol/l Magnesium 2.2 (1.8-2.4) mg/dl Total Bilirubin 1.0 (0.2-1) mg/dl AST 81 H (15-37) U/L ALT 53 (12-78) U/L Alkaline Phosphatase 75 (45-117) U/L Troponin I < 0.015 (0-0.045) ng/ml Total Protein 7.7 (6.4-8.2) gm/dl Albumin 4.0 (3.4-5.0) gm/dl Globulin 3.7 (2.5-4.0) gm/dl Albumin/Globulin Ratio 1.1 (0.9-2) Procalcitonin 0.19 (0-0.5) ng/ml Urine Color Urine Appearance (Clear) Urine pH (4.5-7.5) Ur Specific Rex (1.000-1.030) Urine Protein (Negative) Urine Glucose (UA) (Negative) Urine Ketones (Negative) Urine Blood (Negative) Urine Nitrite (Negative) Urine Bilirubin (Negative) Urine Urobilinogen (Negative) Ur Leukocyte Esterase (Negative) Urine WBC (Auto) (0-5) /hpf Urine RBC (Auto) (0-4) /hpf U Hyaline Cast (Auto) (0-5) /lpf U Epithel Cells (Auto) (0-5) /lpf Urine Bacteria (Auto) (Negative) Ethyl Alcohol mg/dL (0-3) mg/dl SARS-CoV-2 Ag (Rapid) (Negative) 07/22/20 07/22/20 07/22/20 Range/Units 18:40 18:40 18:40 WBC 14.71 H (4.8-10.8) K/uL RBC 4.03 L (4.7-6.1) M/uL Hgb 14.8 (14.0-18.0) g/dL POC Hgb (14.0-18.0) g/dl Hct 42.4 (42-52) % POC Hct (42-52) % MCV 105.2 H (80-100) fL MCH 36.7 H (25-34) pg MCHC 34.9 (32-36) g/dL RDW Std Deviation 59.4 H (36.4-46.3) fL RDW Coeff of Brianda 15.2 H (11.5-14.5) % Plt Count 83 L (130-400) K/uL MPV 12.1 H (7.4-10.4) fL Immature Gran % (Auto) 0.3 % Neut % (Auto) 83.2 % Lymph % (Auto) 6.7 % [place] % (Auto) 9.7 % Eos % (Auto) 0.0 % Baso % (Auto) 0.1 % Neut # (Auto) 12.24 H (1.4-6.5) K/uL Lymph # (Auto) 0.98 L (1.2-3.4) K/uL [place] # (Auto) 1.43 H (0.11-0.59) K/uL Eos # (Auto) 0.00 (0-0.5) K/uL Baso # (Auto) 0.02 (0-0.2) K/uL Immature Gran # (Auto) 0.04 H (0.00-0.02) K/uL Platelet Estimate Decreased L (Normal) PT 11.4 (9.0-12.0) Seconds INR 1.1 (0.9-1.1) APTT 24.5 (21.0-31.0) Seconds PTT Ratio 0.9 VBG pH (7.36-7.41) VBG pCO2 (38-50) mmHg VBG pO2 mmHg VBG HCO3 mmol/L VBG O2 Saturation % VBG Base Excess mEq/L Barometric Pressure mm/Hg POC Sodium (135-144) mmol/L Sodium (136-145) mmol/L POC Potassium (3.3-5.0) mmol/L Potassium (3.5-5.1) mmol/L POC Chloride (101-112) mmol/L Chloride (98-107) mmol/L Carbon Dioxide (21-32) mmol/L POC Total CO2 (24-31) mmol/L Anion Gap (3-11) POC Anion Gap (16-25) mmol/L POC BUN (7-18) mg/dl BUN (7-18) mg/dl Creatinine (0.6-1.4) mg/dl POC Creatinine (0.6-1.3) mg/dl Est Cr Clr Drug Dosing Est GFR ( Amer) Est GFR (Non-Af Amer) BUN/Creatinine Ratio (10-20) Glucose (70-99) mg/dl POC Glucose (other) (70-99) mg/dl Lactate 7.2 H* (0.4-2.0) mmol/L Calcium (8.5-10.1) mg/dl POC Ioniz Calcium Meme (1.12-1.32) mmol/l Magnesium (1.8-2.4) mg/dl Total Bilirubin (0.2-1) mg/dl AST (15-37) U/L ALT (12-78) U/L Alkaline Phosphatase (45-117) U/L Troponin I (0-0.045) ng/ml Total Protein (6.4-8.2) gm/dl Albumin (3.4-5.0) gm/dl Globulin (2.5-4.0) gm/dl Albumin/Globulin Ratio (0.9-2) Procalcitonin (0-0.5) ng/ml Urine Color Urine Appearance (Clear) Urine pH (4.5-7.5) Ur Specific Rex (1.000-1.030) Urine Protein (Negative) Urine Glucose (UA) (Negative) Urine Ketones (Negative) Urine Blood (Negative) Urine Nitrite (Negative) Urine Bilirubin (Negative) Urine Urobilinogen (Negative) Ur Leukocyte Esterase (Negative) Urine WBC (Auto) (0-5) /hpf Urine RBC (Auto) (0-4) /hpf U Hyaline Cast (Auto) (0-5) /lpf U Epithel Cells (Auto) (0-5) /lpf Urine Bacteria (Auto) (Negative) Ethyl Alcohol mg/dL (0-3) mg/dl SARS-CoV-2 Ag (Rapid) (Negative) 07/22/20 07/22/20 07/22/20 Range/Units 18:40 18:40 19:37 WBC (4.8-10.8) K/uL RBC (4.7-6.1) M/uL Hgb (14.0-18.0) g/dL POC Hgb (14.0-18.0) g/dl Hct (42-52) % POC Hct (42-52) % MCV (80-100) fL MCH (25-34) pg MCHC (32-36) g/dL RDW Std Deviation (36.4-46.3) fL RDW Coeff of Brianda (11.5-14.5) % Plt Count (130-400) K/uL MPV (7.4-10.4) fL Immature Gran % (Auto) % Neut % (Auto) % Lymph % (Auto) % [place] % (Auto) % Eos % (Auto) % Baso % (Auto) % Neut # (Auto) (1.4-6.5) K/uL Lymph # (Auto) (1.2-3.4) K/uL [place] # (Auto) (0.11-0.59) K/uL Eos # (Auto) (0-0.5) K/uL Baso # (Auto) (0-0.2) K/uL Immature Gran # (Auto) (0.00-0.02) K/uL Platelet Estimate (Normal) PT (9.0-12.0) Seconds INR (0.9-1.1) APTT (21.0-31.0) Seconds PTT Ratio VBG pH 7.25 L (7.36-7.41) VBG pCO2 55 H (38-50) mmHg VBG pO2 35 mmHg VBG HCO3 24 mmol/L VBG O2 Saturation < 60.0 % VBG Base Excess -4.5 mEq/L Barometric Pressure 736.3 mm/Hg POC Sodium (135-144) mmol/L Sodium (136-145) mmol/L POC Potassium (3.3-5.0) mmol/L Potassium (3.5-5.1) mmol/L POC Chloride (101-112) mmol/L Chloride (98-107) mmol/L Carbon Dioxide (21-32) mmol/L POC Total CO2 (24-31) mmol/L Anion Gap (3-11) POC Anion Gap (16-25) mmol/L POC BUN (7-18) mg/dl BUN (7-18) mg/dl Creatinine (0.6-1.4) mg/dl POC Creatinine (0.6-1.3) mg/dl Est Cr Clr Drug Dosing Est GFR ( Amer) Est GFR (Non-Af Amer) BUN/Creatinine Ratio (10-20) Glucose (70-99) mg/dl POC Glucose (other) (70-99) mg/dl Lactate (0.4-2.0) mmol/L Calcium (8.5-10.1) mg/dl POC Ioniz Calcium Meme (1.12-1.32) mmol/l Magnesium (1.8-2.4) mg/dl Total Bilirubin (0.2-1) mg/dl AST (15-37) U/L ALT (12-78) U/L Alkaline Phosphatase (45-117) U/L Troponin I (0-0.045) ng/ml Total Protein (6.4-8.2) gm/dl Albumin (3.4-5.0) gm/dl Globulin (2.5-4.0) gm/dl Albumin/Globulin Ratio (0.9-2) Procalcitonin (0-0.5) ng/ml Urine Color Urine Appearance (Clear) Urine pH (4.5-7.5) Ur Specific Rex (1.000-1.030) Urine Protein (Negative) Urine Glucose (UA) (Negative) Urine Ketones (Negative) Urine Blood (Negative) Urine Nitrite (Negative) Urine Bilirubin (Negative) Urine Urobilinogen (Negative) Ur Leukocyte Esterase (Negative) Urine WBC (Auto) (0-5) /hpf Urine RBC (Auto) (0-4) /hpf U Hyaline Cast (Auto) (0-5) /lpf U Epithel Cells (Auto) (0-5) /lpf Urine Bacteria (Auto) (Negative) Ethyl Alcohol mg/dL < 3.0 (0-3) mg/dl SARS-CoV-2 Ag (Rapid) Negative (Negative) 07/22/20 Range/Units 20:00 WBC (4.8-10.8) K/uL RBC (4.7-6.1) M/uL Hgb (14.0-18.0) g/dL POC Hgb (14.0-18.0) g/dl Hct (42-52) % POC Hct (42-52) % MCV (80-100) fL MCH (25-34) pg MCHC (32-36) g/dL RDW Std Deviation (36.4-46.3) fL RDW Coeff of Brianda (11.5-14.5) % Plt Count (130-400) K/uL MPV (7.4-10.4) fL Immature Gran % (Auto) % Neut % (Auto) % Lymph % (Auto) % [place] % (Auto) % Eos % (Auto) % Baso % (Auto) % Neut # (Auto) (1.4-6.5) K/uL Lymph # (Auto) (1.2-3.4) K/uL [place] # (Auto) (0.11-0.59) K/uL Eos # (Auto) (0-0.5) K/uL Baso # (Auto) (0-0.2) K/uL Immature Gran # (Auto) (0.00-0.02) K/uL Platelet Estimate (Normal) PT (9.0-12.0) Seconds INR (0.9-1.1) APTT (21.0-31.0) Seconds PTT Ratio VBG pH (7.36-7.41) VBG pCO2 (38-50) mmHg VBG pO2 mmHg VBG HCO3 mmol/L VBG O2 Saturation % VBG Base Excess mEq/L Barometric Pressure mm/Hg POC Sodium (135-144) mmol/L Sodium (136-145) mmol/L POC Potassium (3.3-5.0) mmol/L Potassium (3.5-5.1) mmol/L POC Chloride (101-112) mmol/L Chloride (98-107) mmol/L Carbon Dioxide (21-32) mmol/L POC Total CO2 (24-31) mmol/L Anion Gap (3-11) POC Anion Gap (16-25) mmol/L POC BUN (7-18) mg/dl BUN (7-18) mg/dl Creatinine (0.6-1.4) mg/dl POC Creatinine (0.6-1.3) mg/dl Est Cr Clr Drug Dosing Est GFR ( Amer) Est GFR (Non-Af Amer) BUN/Creatinine Ratio (10-20) Glucose (70-99) mg/dl POC Glucose (other) (70-99) mg/dl Lactate (0.4-2.0) mmol/L Calcium (8.5-10.1) mg/dl POC Ioniz Calcium Meme (1.12-1.32) mmol/l Magnesium (1.8-2.4) mg/dl Total Bilirubin (0.2-1) mg/dl AST (15-37) U/L ALT (12-78) U/L Alkaline Phosphatase (45-117) U/L Troponin I (0-0.045) ng/ml Total Protein (6.4-8.2) gm/dl Albumin (3.4-5.0) gm/dl Globulin (2.5-4.0) gm/dl Albumin/Globulin Ratio (0.9-2) Procalcitonin (0-0.5) ng/ml Urine Color Yellow Urine Appearance Clear (Clear) Urine pH 5.5 (4.5-7.5) Ur Specific Rex 1.017 (1.000-1.030) Urine Protein Trace H (Negative) Urine Glucose (UA) 1+ H (Negative) Urine Ketones Negative (Negative) Urine Blood Trace H (Negative) Urine Nitrite Negative (Negative) Urine Bilirubin Negative (Negative) Urine Urobilinogen Negative (Negative) Ur Leukocyte Esterase Negative (Negative) Urine WBC (Auto) 1-5 (0-5) /hpf Urine RBC (Auto) 0-4 (0-4) /hpf U Hyaline Cast (Auto) 1-5 (0-5) /lpf U Epithel Cells (Auto) 20-30 H (0-5) /lpf Urine Bacteria (Auto) Negative (Negative) Ethyl Alcohol mg/dL (0-3) mg/dl SARS-CoV-2 Ag (Rapid) (Negative) Administered Medications Ioversol (Optiray 320 125ml) 118 ml IV ONCE ONE Last Admin: 07/22/20 21:59 Dose: 118 ml Documented by: [id number] Discontinued Medications Sodium Chloride (Nss 1000ml) 2,000 mls @ 999 mls/hr IV .Q2H1M ONE Stop: 07/22/20 20:05 Last Infusion: 07/22/20 20:40 Dose: 0 mls/hr Documented by: [id number] Admin: 07/22/20 19:04 Dose: 999 mls/hr Documented by: [id number] Thiamine HCl 100 mg/ Syringe 10 mls @ 2 mls/min IV NOW STA Stop: 07/22/20 18:09 Last Admin: 07/22/20 18:42 Dose: 2 mls/min Documented by: [id number] Folic Acid 1 mg/ Syringe 10 mls @ 5 mls/min IV NOW STA Stop: 07/22/20 18:06 Last Admin: 07/22/20 18:42 Dose: 5 mls/min Documented by: [id number] Levetiracetam 1,000 mg/ Sodium (Chloride) 110 mls @ 440 mls/hr IV NOW STA Stop: 07/22/20 18:22 Last Infusion: 07/22/20 19:00 Dose: 0 mls/hr Documented by: [id number] Admin: 07/22/20 18:42 Dose: 440 mls/hr Documented by: [id number] Lorazepam (Ativan) 0.5 mg in 1 mls @ 1 mls/min IV NOW STA Stop: 07/22/20 19:21 Last Admin: 07/22/20 19:31 Dose: 1 mls/min Documented by: [id number] Piperacillin Sod/Tazobactam Sod (Zosyn) 4.5 gm in 120 mls @ 240 mls/hr IV NOW ONE Stop: 07/22/20 19:58 Last Infusion: 07/22/20 20:45 Dose: 0 mls/hr Documented by: [id number] Admin: 07/22/20 20:13 Dose: 240 mls/hr Documented by: [id number] Sodium Chloride (Nss 1000ml) 1,000 mls @ 999 mls/hr IV .Q1H1M ONE Stop: 07/22/20 20:29 Last Infusion: 07/22/20 22:26 Dose: 0 mls/hr Documented by: [id number] Admin: 07/22/20 20:43 Dose: 999 mls/hr Documented by: [id number] Ketamine HCl (Ketamine Hcl Inj 50 Mg/Ml 10 Ml Vial) Confirm Administered Dose 500 mg .ROUTE .STK-MED ONE Stop: 07/22/20 17:52 Last Admin: 07/22/20 20:44 Dose: Not Given Documented by: [id number] Succinylcholine Chloride (Succinylcholine Chloride 20 Mg/Ml 10 Ml Vial) Confirm Administered Dose 200 mg IV .STK-MED ONE Stop: 07/22/20 17:52 Last Admin: 07/22/20 20:44 Dose: Not Given Documented by: [id number] Discharge Plan Visit Data Chief Complaint: Altered Mental Status Stated Complaint: SEIZURE, SVT, ED Provider: Giovani Sparks Discharge Problem: Status epilepticus, Leukocytosis, Metabolic acidosis, Acute hypokalemia, Altered mental status, Acidosis, lactic Discharge Instructions Interventions: ED Discharge Assessment Last Done: 07/22/20 21:39
[2020-07-22 18:56] LABS: Base Excess VBG -4.5 mEq/L; HCO3 VBG 24 mmol/L; Oxygen Saturation VBG < 60.0 %; PCO2 VBG 55 mmHg (38-50); PO2 VBG 35 mmHg; pH VBG 7.25 (7.36-7.41)
--- NOTE | 2020-07-22 19:01 | CT Scan Report ---
CT SCAN OF THE BRAIN WITHOUT IV CONTRAST CLINICAL HISTORY: Change in mental status. Unresponsive. COMPARISON STUDY: No priors. TECHNIQUE: Unenhanced axial CT scan of the brain is performed from the vertex to the skull base. A do se lowering technique was utilized adhering to the principles of ALARA. CT DOSE: 614.27 mGy.cm FINDINGS: Brain parenchyma: There is mild microangiopathic change. There is no hemorrhage, mass effect, or evid ence of acute territorial ischemia by CT criteria. Mehta-white matter differentiation is preserved. No extra-axial fluid collection is seen. Ventricles, sulci, cisterns: Normal in configuration. Intracranial vasculature: There is atherosclerotic calcification of the cavernous carotid arteries. Calvarium: Unremarkable. Sinuses and mastoids: The visualized paranasal sinuses are clear. The mastoid air cells are well pneu matized. Orbits: The bony orbits are grossly intact. IMPRESSION: There is no hemorrhage, mass effect, or evidence of acute territorial ischemia by CT geovanna cordon. ACT 112: Negative or not required by law. Electronically signed by: Almas Shaffer M.D. 07/22/2020 7:00 PM
[2020-07-22 19:06] LABS: INR 1.1 (0.9-1.1); Partial Thromboplastin Ratio 0.9; Partial Thromboplastin Time 24.5 Seconds (21.0-31.0); Prothrombin Time 11.4 Seconds (9.0-12.0)
[2020-07-22 19:17] LABS: Alanine Aminotransferase 53 U/L (12-78); Aspartate Aminotransferase 81 U/L (15-37); Blood Urea Nitrogen 15 mg/dl (7-18); Calcium 9.4 mg/dl (8.5-10.1); Carbon Dioxide 23 mmol/L (21-32); Chloride 103 mmol/L (98-107); Est GFR (African American) 78.1; Est GFR (Non-African American) 67.4; Glucose 156 mg/dl (70-99); Magnesium 2.2 mg/dl (1.8-2.4); Potassium 3.1 mmol/L (3.5-5.1); Sodium 140 mmol/L (136-145)
[2020-07-22 19:20] LABS: Albumin Globulin Ratio 1.1 (0.9-2); Alkaline Phosphatase 75 U/L (45-117); Globulin 3.7 gm/dl (2.5-4.0); Total Protein 7.7 gm/dl (6.4-8.2); Troponin I < 0.015 ng/ml (0-0.045)
[2020-07-22] MEDS ORDERED: LORazepam 0.5 MG/1 ML VIAL IV STA (19:20)
--- NOTE | 2020-07-22 19:25 | XRay Report ---
SINGLE VIEW CHEST CLINICAL HISTORY: Sepsis. FINDINGS: An AP, portable, semierect chest radiograph is compared to study dated 02/19/2020. The cardi omediastinal silhouette is unremarkable. The lungs and pleural spaces are clear. No pneumothorax is s een. The skeletal structures are osteopenic. The bony thorax is grossly intact. Fusion hardware is no bisi in the lower cervical spine. IMPRESSION: No active disease in the chest. ACT 112: Negative or not required by law. Electronically signed by: Almas Shaffer M.D. 07/22/2020 7:24 PM
[2020-07-22 19:26] LABS: Hematocrit (blood only) 42.4 % (42-52); Hemoglobin 14.8 g/dL (14.0-18.0); Mean Corpuscular Hemoglobin 36.7 pg (25-34); Mean Corpuscular Hgb Conc 34.9 g/dL (32-36); Mean Corpuscular Volume 105.2 fL (80-100); Mean Platelet Volume 12.1 fL (7.4-10.4); Platelet Count 83 K/uL (130-400); RDW Coefficient of Variation 15.2 % (11.5-14.5); RDW Standard Deviation 59.4 fL (36.4-46.3); Red Blood Count 4.03 M/uL (4.7-6.1); White Blood Count 14.71 K/uL (4.8-10.8)
[2020-07-22 19:28] LABS: Basophils # (auto) 0.02 K/uL (0-0.2); Basophils % (auto) 0.1 %; Immature Granulocytes # (auto) 0.04 K/uL (0.00-0.02); Immature Granulocytes % (auto) 0.3 %; Lymphocytes # (auto) 0.98 K/uL (1.2-3.4); Lymphocytes % (auto) 6.7 %; Monocytes # (auto) 1.43 K/uL (0.11-0.59); Monocytes % (auto) 9.7 %; Neutrophils # (auto) 12.24 K/uL (1.4-6.5); Neutrophils % (auto) 83.2 %; Platelet Estimate Decreased (Normal)
[2020-07-22] MEDS ORDERED: PIPERACILLIN/TAZOBACTAM 4.5 GM/120 ML BAG IV ONE (19:29)
[2020-07-22] MEDS ORDERED: PIPERACILL/TAZOBAC CONSULT ACTIVE PRN ×2 (19:29→22:29)
[2020-07-22] MEDS ORDERED: SODIUM CHLORIDE 0.9% 1000ML 1,000 ML IV ONE (19:29)
--- NOTE | 2020-07-22 20:25 | History & Physical Report ---
Date of Service July 22, 2020 Assessment & Plan (1) Seizure: 60yo C male presenting with witnessed tonic-clonic seizure x 3 at home. Patient with no history of prior seizure. He does drink EtOH fairly regularly and has been trying to cut back - EtOH level currently <3. Ddx includes EtOH withdrawal, electrolyte abnormality, CVA, ART HANDLER infection. CT Head is unremarkable. He has mild hypokalemia and hypocalcemia, doubtful source of seizure. Na is normal. He was administered Keppra in the ER x 1gm. Some mild concern for right sided deficit - patient is following commands mostly with his left hand. He is withdrawing his right side from noxious stimuli. ?CVA/TIA vs Todds paralysis following seizure -Admit to PCU, maintain seizure precautions -Check CTA head and neck -Check Utox, total CK, ammonia, TSH -Consider MRI and Neurology consultation Present on Admission?: Yes (2) Elevated lactic acid level: Patient with elevated lactic acid of 7.2 on intake labs. Possibly secondary to prolonged seizure activity. He was administered aggressive IVF in the ER x 3 liters. He is hemodynamically stable - no documented hypotensive episodes. His liver studies are largely intact with no evidence of synthetic dysfunction. -Repeat lactic acid pending Present on Admission?: Yes (3) Thrombocytopenia: Platelets=83. No active bleeding. INR, renal function is WNL. Most likely secondary to toxic effects of EtOH -Continue to monitor Present on Admission?: Yes (4) Macrocytic anemia: H/H -= 14.8 and 42.4. MCVFelevated at 105.2. Most likely secondary to Etoh effects. Patient had a normal B12 level in February 2020 of 394 as well as a normal Folate of 10.67 at that time. -Continue to monitor Present on Admission?: Yes (5) Hypocalcemia: Ionized calcium is reduced at 1.05 -Calcium gluconate x 2 gm -Repeat level in AM Present on Admission?: Yes (6) Hypokalemia: Hypokalemia with K=3.1 -K-rider 10mEq x 4 bags ordered. If patient's mental status improves and he is able to tolerate PO would rather replete orally -Repeat chemistry panel in AM Present on Admission?: Yes (7) Depression: Chronic -Continue Duloxetine 60mg po q daily Present on Admission?: Yes (8) Alcohol abuse: Patient with history of heavy EtoH use. Now drinks 1-2 beers/day and possibly has been sneaking some odessa as well. EtOH level = <3, ?withdrawal seizures -IV thiamine -Banana bag -AWSS -Seizure precautions Present on Admission?: Yes (9) Hypertension: Mildly hypertensive -Continue Lisinopril 10mg po q AM -Continue to monitor Present on Admission?: Yes (10) Parkinson disease: Chronic. Patient follows with Neurology - Dr. Ahmadi. -Continue Carbidopa-Levodopa as directed F/E/N - patient given 3L IVF in the ER. Continue LR at 75mL/hr x 1L. K and Ca repletion as above. Check PO4 x 1 and replete if needed. Repeat chemistry and Ical in AM. NPO for now, may advance diet if mental status improves. Ppx - Heriberto avoid chemo ppx due to low platelets Code - Full Dispo - Admit to PCU Present on Admission?: Yes History of Present Illness Chief Complaint: seizure Primary Care Provider: [place] Vasquez DO Jorge Coronado is a 60yo C male with history of HTN, cervical spondylosis s/p surgical intervention with hardware in place, regular EtOH use presenting by EMS after witnessed seizure. Patient somnolent after receiving benzos, history obtained through chart review and discussion with ER attending and patient's fiance at bedside. Patient with history of EtOH abuse - his fiance states he drinks appx 1-2 beers daily and may have been drinking more of late, specifically carol odessa. He has been gradually trying to cut back on his EtOH intake. Fiance states that patient has not been feeling well for the last several days. He has been complaining of diarrhea, fatigue and headache. When she came home from work this afternoon around 16:20 she found the patient minimally responsive with tonic-clonic activity, fecal incontinence. EMS was called - patient was found to be seizing and was administered Versed x 5mg IV and Ativan 2mg IV en route to ER. He was thought to have three tonic-clonic seizures in total. He had an episode of SVT and was administered Adenosine 18mg IV with resolution. Patient became apneic en route to the ER requiring bag-mask ventilation for approximately two minutes. In the ER patient was afebrile, tachycardic at 105, mildly hypertensive at 150/85 with normal respiratory rate. He was initially on 15L NRB with saturation maintained at 100% - O2 decreased to 2L NC with adequate saturation - currently 100%. Initial physical exam noted patient to be ill in appearance, awake, alert and looking around. Moaning to painful stimuli and moving his upper and lower extr emities equally ER Course: NSS x 3L, Zosyn x 4.5gm, Ativan x 0.5mg, Keppra x 1gm, Folic acid x 1mg, Thiamine x 100mg Allergies Allergy/AdvReac Type Severity Reaction Status Date / Time No Known Drug Allergies Allergy Verified 07/22/20 19:29 Home Medications Medication Instructions Recorded Confirmed Type duloxetine 60 mg capsule,delayed 60 mg PO QAM 05/16/19 07/22/20 History release carbidopa 25 mg-levodopa 100 mg 1 tab PO DIRECTED #120 tab 06/18/20 07/22/20 Rx tablet lisinopril 10 mg PO QAM 07/22/20 07/22/20 History Past Med/Surg History Medical History (Updated 07/22/20 @ 22:04 by Jennifer Cordon DO) Alcohol abuse Cervical spondylosis Depression Erectile dysfunction Hypertension Parkinson disease Vertigo Surgical History Hx of neck surgery (05/2018) Status post tooth extraction Family History (Updated 06/10/20 @ 14:09 by [place] Vasquez DO) Aunt Parkinson disease Denies family history of Ovarian cancer Prostate cancer Myocardial infarction Breast cancer Lung cancer Colorectal cancer Social History Smoking Status: Current every day smoker Tobacco Type: Cigarettes Age Started Using Tobacco: 17; packs per day: 1; Cigarettes Per Day: 20; Second Hand Exposure: No; Do You Dip or Chew Tobacco: No; Hx Alcohol Use: Yes Alcohol type: beer Alcohol Intake Frequency Comment: 2-3 beers per day; h/o 1/2 gallon odessa per week Hx Substance Use: Yes Last Used Substance: Unknown Preferred Language: Spanish Communication Ability: Effective Visual Impairment: No Limitations Hearing Ability: Normal 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 Beliefs That Will Affect Care: None marital status: Single Current Living Situation: Other Current Living Situation Comment: s/o current occupational status: disabled Other Information That Helps Us Care for You: No Feels Safe at Home: Yes Safety Concerns: Feels Safe At This Time Childhood Exposure to Second-Hand Smoke: Yes Diet Comment: regular caffeine: No during the past year weight has: remained stable Dental Care, Regularly: No Physical Activity Frequency: Does not Exercise Seatbelt Use: always Sunscreen Use: No Assistive Devices: None Review of Systems Review of Systems: Unobtainable due to cognitive status Physical Exam Physical Exam: General: patient somnolent, opens eyes to noxious stimuli, follows some commands, nonverbal, ill in appearance Skin: warm, dry, intact, no rashes or lesions, some mottling of bilateral LEs HEENT: NC/AT, pupils small, reactive, anicteric sclera, conjunctiva without injection, external ear normal to inspection and nontender, nares patent, dry mucus membranes, dentition intact, no oropharyngeal lesions, neck supple, trachea midline, no LAD, no thyromegaly, no JVD Heart: +S1/S2, regular, tachycardic, no m/r/g Lungs: equal air entry bilaterally, no rales/rhonchi/wheezes Abd: +BS, soft, NT/ND, no masses/organomegaly/ascites Ext: cool, 2+ pulses in UE/LE bilaterally, no clubbing/cyanosis or edema Neuro: somnolent, opens eyes to verbal stimuli, follows some commands, seems to favor RUE/RLE ?component of left sided neglect Results & Data Results & Data ([facility]) Vital Signs (Past 12 Hours) Vital Signs Temp Pulse Resp BP Pulse Ox 07/22/20 20:01 107 H 18 100 07/22/20 20:00 107 H 20 148/102 H 100 07/22/20 19:46 114 H 20 100 07/22/20 19:45 122 H 20 140/97 100 07/22/20 19:31 100 H 23 100 07/22/20 19:30 106 H 21 139/86 100 07/22/20 19:16 112 H 21 100 07/22/20 19:15 119 H 22 135/86 100 07/22/20 19:09 18 100 07/22/20 19:08 100 07/22/20 19:06 100 07/22/20 18:45 18 143/87 H 100 07/22/20 18:30 109 H 18 143/89 H 100 07/22/20 18:15 109 H 18 142/89 H 100 07/22/20 18:00 36.8 C 105 H 18 150/85 H 97 Laboratory Results Lab Results 07/22/20 07/22/20 07/22/20 Range/Units 18:35 18:40 18:40 WBC (4.8-10.8) K/uL RBC (4.7-6.1) M/uL Hgb (14.0-18.0) g/dL POC Hgb 16.3 (14.0-18.0) g/dl Hct (42-52) % POC Hct 48 (42-52) % MCV (80-100) fL MCH (25-34) pg MCHC (32-36) g/dL RDW Std Deviation (36.4-46.3) fL RDW Coeff of Brianda (11.5-14.5) % Plt Count (130-400) K/uL MPV (7.4-10.4) fL Immature Gran % (Auto) % Neut % (Auto) % Lymph % (Auto) % Sterling % (Auto) % Eos % (Auto) % Baso % (Auto) % Neut # (Auto) (1.4-6.5) K/uL Lymph # (Auto) (1.2-3.4) K/uL Sterling # (Auto) (0.11-0.59) K/uL Eos # (Auto) (0-0.5) K/uL Baso # (Auto) (0-0.2) K/uL Immature Gran # (Auto) (0.00-0.02) K/uL Platelet Estimate (Normal) PT (9.0-12.0) Seconds INR (0.9-1.1) APTT (21.0-31.0) Seconds PTT Ratio VBG pH (7.36-7.41) VBG pCO2 (38-50) mmHg VBG pO2 mmHg VBG HCO3 mmol/L VBG O2 Saturation % VBG Base Excess mEq/L Barometric Pressure mm/Hg POC Sodium 138 (135-144) mmol/L Sodium 140 (136-145) mmol/L POC Potassium 3.1 L (3.3-5.0) mmol/L Potassium 3.1 L (3.5-5.1) mmol/L POC Chloride 103 (101-112) mmol/L Chloride 103 (98-107) mmol/L Carbon Dioxide 23 (21-32) mmol/L POC Total CO2 24 (24-31) mmol/L Anion Gap 14.0 H (3-11) POC Anion Gap 16.0 (16-25) mmol/L POC BUN 19 H (7-18) mg/dl BUN 15 (7-18) mg/dl Creatinine 1.17 (0.6-1.4) mg/dl POC Creatinine 0.9 (0.6-1.3) mg/dl Est Cr Clr Drug Dosing Not Reportable Est GFR ( Amer) 78.1 Est GFR (Non-Af Amer) 67.4 BUN/Creatinine Ratio 13.0 (10-20) Glucose 156 H (70-99) mg/dl POC Glucose (other) 147 H (70-99) mg/dl Lactate (0.4-2.0) mmol/L Calcium 9.4 (8.5-10.1) mg/dl POC Ioniz Calcium Meme 1.05 L (1.12-1.32) mmol/l Magnesium 2.2 (1.8-2.4) mg/dl Total Bilirubin 1.0 (0.2-1) mg/dl AST 81 H (15-37) U/L ALT 53 (12-78) U/L Alkaline Phosphatase 75 (45-117) U/L Troponin I < 0.015 (0-0.045) ng/ml Total Protein 7.7 (6.4-8.2) gm/dl Albumin 4.0 (3.4-5.0) gm/dl Globulin 3.7 (2.5-4.0) gm/dl Albumin/Globulin Ratio 1.1 (0.9-2) Procalcitonin 0.19 (0-0.5) ng/ml Urine Color Urine Appearance (Clear) Urine pH (4.5-7.5) Ur Specific [place] (1.000-1.030) Urine Protein (Negative) Urine Glucose (UA) (Negative) Urine Ketones (Negative) Urine Blood (Negative) Urine Nitrite (Negative) Urine Bilirubin (Negative) Urine Urobilinogen (Negative) Ur Leukocyte Esterase (Negative) Urine WBC (Auto) (0-5) /hpf Urine RBC (Auto) (0-4) /hpf U Hyaline Cast (Auto) (0-5) /lpf U Epithel Cells (Auto) (0-5) /lpf Urine Bacteria (Auto) (Negative) Ethyl Alcohol mg/dL (0-3) mg/dl SARS-CoV-2 Ag (Rapid) (Negative) 07/22/20 07/22/20 07/22/20 Range/Units 18:40 18:40 18:40 WBC 14.71 H (4.8-10.8) K/uL RBC 4.03 L (4.7-6.1) M/uL Hgb 14.8 (14.0-18.0) g/dL POC Hgb (14.0-18.0) g/dl Hct 42.4 (42-52) % POC Hct (42-52) % MCV 105.2 H (80-100) fL MCH 36.7 H (25-34) pg MCHC 34.9 (32-36) g/dL RDW Std Deviation 59.4 H (36.4-46.3) fL RDW Coeff of Brianda 15.2 H (11.5-14.5) % Plt Count 83 L (130-400) K/uL MPV 12.1 H (7.4-10.4) fL Immature Gran % (Auto) 0.3 % Neut % (Auto) 83.2 % Lymph % (Auto) 6.7 % Sterling % (Auto) 9.7 % Eos % (Auto) 0.0 % Baso % (Auto) 0.1 % Neut # (Auto) 12.24 H (1.4-6.5) K/uL Lymph # (Auto) 0.98 L (1.2-3.4) K/uL Sterling # (Auto) 1.43 H (0.11-0.59) K/uL Eos # (Auto) 0.00 (0-0.5) K/uL Baso # (Auto) 0.02 (0-0.2) K/uL Immature Gran # (Auto) 0.04 H (0.00-0.02) K/uL Platelet Estimate Decreased L (Normal) PT 11.4 (9.0-12.0) Seconds INR 1.1 (0.9-1.1) APTT 24.5 (21.0-31.0) Seconds PTT Ratio 0.9 VBG pH (7.36-7.41) VBG pCO2 (38-50) mmHg VBG pO2 mmHg VBG HCO3 mmol/L VBG O2 Saturation % VBG Base Excess mEq/L Barometric Pressure mm/Hg POC Sodium (135-144) mmol/L Sodium (136-145) mmol/L POC Potassium (3.3-5.0) mmol/L Potassium (3.5-5.1) mmol/L POC Chloride (101-112) mmol/L Chloride (98-107) mmol/L Carbon Dioxide (21-32) mmol/L POC Total CO2 (24-31) mmol/L Anion Gap (3-11) POC Anion Gap (16-25) mmol/L POC BUN (7-18) mg/dl BUN (7-18) mg/dl Creatinine (0.6-1.4) mg/dl POC Creatinine (0.6-1.3) mg/dl Est Cr Clr Drug Dosing Est GFR ( Amer) Est GFR (Non-Af Amer) BUN/Creatinine Ratio (10-20) Glucose (70-99) mg/dl POC Glucose (other) (70-99) mg/dl Lactate 7.2 H* (0.4-2.0) mmol/L Calcium (8.5-10.1) mg/dl POC Ioniz Calcium Meme (1.12-1.32) mmol/l Magnesium (1.8-2.4) mg/dl Total Bilirubin (0.2-1) mg/dl AST (15-37) U/L ALT (12-78) U/L Alkaline Phosphatase (45-117) U/L Troponin I (0-0.045) ng/ml Total Protein (6.4-8.2) gm/dl Albumin (3.4-5.0) gm/dl Globulin (2.5-4.0) gm/dl Albumin/Globulin Ratio (0.9-2) Procalcitonin (0-0.5) ng/ml Urine Color Urine Appearance (Clear) Urine pH (4.5-7.5) Ur Specific [place] (1.000-1.030) Urine Protein (Negative) Urine Glucose (UA) (Negative) Urine Ketones (Negative) Urine Blood (Negative) Urine Nitrite (Negative) Urine Bilirubin (Negative) Urine Urobilinogen (Negative) Ur Leukocyte Esterase (Negative) Urine WBC (Auto) (0-5) /hpf Urine RBC (Auto) (0-4) /hpf U Hyaline Cast (Auto) (0-5) /lpf U Epithel Cells (Auto) (0-5) /lpf Urine Bacteria (Auto) (Negative) Ethyl Alcohol mg/dL (0-3) mg/dl SARS-CoV-2 Ag (Rapid) (Negative) 07/22/20 07/22/20 07/22/20 Range/Units 18:40 18:40 19:37 WBC (4.8-10.8) K/uL RBC (4.7-6.1) M/uL Hgb (14.0-18.0) g/dL POC Hgb (14.0-18.0) g/dl Hct (42-52) % POC Hct (42-52) % MCV (80-100) fL MCH (25-34) pg MCHC (32-36) g/dL RDW Std Deviation (36.4-46.3) fL RDW Coeff of Brianda (11.5-14.5) % Plt Count (130-400) K/uL MPV (7.4-10.4) fL Immature Gran % (Auto) % Neut % (Auto) % Lymph % (Auto) % Sterling % (Auto) % Eos % (Auto) % Baso % (Auto) % Neut # (Auto) (1.4-6.5) K/uL Lymph # (Auto) (1.2-3.4) K/uL Sterling # (Auto) (0.11-0.59) K/uL Eos # (Auto) (0-0.5) K/uL Baso # (Auto) (0-0.2) K/uL Immature Gran # (Auto) (0.00-0.02) K/uL Platelet Estimate (Normal) PT (9.0-12.0) Seconds INR (0.9-1.1) APTT (21.0-31.0) Seconds PTT Ratio VBG pH 7.25 L (7.36-7.41) VBG pCO2 55 H (38-50) mmHg VBG pO2 35 mmHg VBG HCO3 24 mmol/L VBG O2 Saturation < 60.0 % VBG Base Excess -4.5 mEq/L Barometric Pressure 736.3 mm/Hg POC Sodium (135-144) mmol/L Sodium (136-145) mmol/L POC Potassium (3.3-5.0) mmol/L Potassium (3.5-5.1) mmol/L POC Chloride (101-112) mmol/L Chloride (98-107) mmol/L Carbon Dioxide (21-32) mmol/L POC Total CO2 (24-31) mmol/L Anion Gap (3-11) POC Anion Gap (16-25) mmol/L POC BUN (7-18) mg/dl BUN (7-18) mg/dl Creatinine (0.6-1.4) mg/dl POC Creatinine (0.6-1.3) mg/dl Est Cr Clr Drug Dosing Est GFR ( Amer) Est GFR (Non-Af Amer) BUN/Creatinine Ratio (10-20) Glucose (70-99) mg/dl POC Glucose (other) (70-99) mg/dl Lactate (0.4-2.0) mmol/L Calcium (8.5-10.1) mg/dl POC Ioniz Calcium Meme (1.12-1.32) mmol/l Magnesium (1.8-2.4) mg/dl Total Bilirubin (0.2-1) mg/dl AST (15-37) U/L ALT (12-78) U/L Alkaline Phosphatase (45-117) U/L Troponin I (0-0.045) ng/ml Total Protein (6.4-8.2) gm/dl Albumin (3.4-5.0) gm/dl Globulin (2.5-4.0) gm/dl Albumin/Globulin Ratio (0.9-2) Procalcitonin (0-0.5) ng/ml Urine Color Urine Appearance (Clear) Urine pH (4.5-7.5) Ur Specific Enc[place] (1.000-1.030) Urine Protein (Negative) Urine Glucose (UA) (Negative) Urine Ketones (Negative) Urine Blood (Negative) Urine Nitrite (Negative) Urine Bilirubin (Negative) Urine Urobilinogen (Negative) Ur Leukocyte Esterase (Negative) Urine WBC (Auto) (0-5) /hpf Urine RBC (Auto) (0-4) /hpf U Hyaline Cast (Auto) (0-5) /lpf U Epithel Cells (Auto) (0-5) /lpf Urine Bacteria (Auto) (Negative) Ethyl Alcohol mg/dL < 3.0 (0-3) mg/dl SARS-CoV-2 Ag (Rapid) Negative (Negative) 07/22/20 Range/Units 20:00 WBC (4.8-10.8) K/uL RBC (4.7-6.1) M/uL Hgb (14.0-18.0) g/dL POC Hgb (14.0-18.0) g/dl Hct (42-52) % POC Hct (42-52) % MCV (80-100) fL MCH (25-34) pg MCHC (32-36) g/dL RDW Std Deviation (36.4-46.3) fL RDW Coeff of Brianda (11.5-14.5) % Plt Count (130-400) K/uL MPV (7.4-10.4) fL Immature Gran % (Auto) % Neut % (Auto) % Lymph % (Auto) % Sterling % (Auto) % Eos % (Auto) % Baso % (Auto) % Neut # (Auto) (1.4-6.5) K/uL Lymph # (Auto) (1.2-3.4) K/uL Sterling # (Auto) (0.11-0.59) K/uL Eos # (Auto) (0-0.5) K/uL Baso # (Auto) (0-0.2) K/uL Immature Gran # (Auto) (0.00-0.02) K/uL Platelet Estimate (Normal) PT (9.0-12.0) Seconds INR (0.9-1.1) APTT (21.0-31.0) Seconds PTT Ratio VBG pH (7.36-7.41) VBG pCO2 (38-50) mmHg VBG pO2 mmHg VBG HCO3 mmol/L VBG O2 Saturation % VBG Base Excess mEq/L Barometric Pressure mm/Hg POC Sodium (135-144) mmol/L Sodium (136-145) mmol/L POC Potassium (3.3-5.0) mmol/L Potassium (3.5-5.1) mmol/L POC Chloride (101-112) mmol/L Chloride (98-107) mmol/L Carbon Dioxide (21-32) mmol/L POC Total CO2 (24-31) mmol/L Anion Gap (3-11) POC Anion Gap (16-25) mmol/L POC BUN (7-18) mg/dl BUN (7-18) mg/dl Creatinine (0.6-1.4) mg/dl POC Creatinine (0.6-1.3) mg/dl Est Cr Clr Drug Dosing Est GFR ( Amer) Est GFR (Non-Af Amer) BUN/Creatinine Ratio (10-20) Glucose (70-99) mg/dl POC Glucose (other) (70-99) mg/dl Lactate (0.4-2.0) mmol/L Calcium (8.5-10.1) mg/dl POC Ioniz Calcium Meme (1.12-1.32) mmol/l Magnesium (1.8-2.4) mg/dl Total Bilirubin (0.2-1) mg/dl AST (15-37) U/L ALT (12-78) U/L Alkaline Phosphatase (45-117) U/L Troponin I (0-0.045) ng/ml Total Protein (6.4-8.2) gm/dl Albumin (3.4-5.0) gm/dl Globulin (2.5-4.0) gm/dl Albumin/Globulin Ratio (0.9-2) Procalcitonin (0-0.5) ng/ml Urine Color Yellow Urine Appearance Clear (Clear) Urine pH 5.5 (4.5-7.5) Ur Specific [place] 1.017 (1.000-1.030) Urine Protein Trace H (Negative) Urine Glucose (UA) 1+ H (Negative) Urine Ketones Negative (Negative) Urine Blood Trace H (Negative) Urine Nitrite Negative (Negative) Urine Bilirubin Negative (Negative) Urine Urobilinogen Negative (Negative) Ur Leukocyte Esterase Negative (Negative) Urine WBC (Auto) 1-5 (0-5) /hpf Urine RBC (Auto) 0-4 (0-4) /hpf U Hyaline Cast (Auto) 1-5 (0-5) /lpf U Epithel Cells (Auto) 20-30 H (0-5) /lpf Urine Bacteria (Auto) Negative (Negative) Ethyl Alcohol mg/dL (0-3) mg/dl SARS-CoV-2 Ag (Rapid) (Negative) Diagnostic Findings SINGLE VIEW CHEST CLINICAL HISTORY: Sepsis. FINDINGS: An AP, portable, semierect chest radiograph is compared to study dated 02/19/2020. The cardiomediastinal silhouette is unremarkable. The lungs and pleural spaces are clear. No pneumothorax is seen. The skeletal structures are osteopenic. The bony thorax is grossly intact. Fusion hardware is noted in the lower cervical spine. IMPRESSION: No active disease in the chest. ACT 112: Negative or not required by law. Electronically signed by: Almas Shaffer M.D. 07/22/2020 7:24 PM Dictated: 07/22/201922Transcribed: 07/22/201922 CT SCAN OF THE BRAIN WITHOUT IV CONTRAST CLINICAL HISTORY: Change in mental status. Unresponsive. COMPARISON STUDY: No priors. TECHNIQUE: Unenhanced axial CT scan of the brain is performed from the vertex to the skull base. A dose lowering technique was utilized adhering to the principles of ALARA. CT DOSE: 614.27 mGy.cm FINDINGS: Brain parenchyma: There is mild microangiopathic change. There is no hemorrhage, mass effect, or evidence of acute territorial ischemia by CT criteria. Mehta- white matter differentiation is preserved. No extra-axial fluid collection is seen. Ventricles, sulci, cisterns: Normal in configuration. Intracranial vasculature: There is atherosclerotic calcification of the cavernous carotid arteries. Calvarium: Unremarkable. Sinuses and mastoids: The visualized paranasal sinuses are clear. The mastoid air cells are well pneumatized. Orbits: The bony orbits are grossly intact. IMPRESSION: There is no hemorrhage, mass effect, or evidence of acute territorial ischemia by CT criteria. ACT 112: Negative or not required by law. Electronically signed by: Almas Shaffer M.D. 07/22/2020 7:00 PM Dictated: 07/22/201857Transcribed: 07/22/201857 ECG Additional Comments: ST at 112, non-specific ST changes, no STEMI Strips with SVT reviewed Code Status & VTE Plan VTE Prophylaxis Plan VTE Prophylaxis will be ordered: Yes PG Care Time/CCT Total # of Minutes Spent Total Time Spent with Patient: Total time spent is greater than 50% in coordination of care (as documented) at patient's floor/unit and/or counseling patient: Coding Level of Care Code 71275 Initial Inpt Care Lvl 3 Diagnoses Seizure R56.9 Elevated lactic acid level R79.89 Thrombocytopenia D69.6 Macrocytic anemia D53.9 Hypocalcemia E83.51 Hypokalemia E87.6 Depression F32.9 Depression Type: unspecified Alcohol abuse F10.10 Hypertension I10 Hypertension type: essential hypertension Parkinson disease G20 (1) Depression Depression Type: unspecified Qualified Code(s): F32.9 - Major depressive disorder, single episode, unspecified (2) Hypertension Hypertension type: essential hypertension Qualified Code(s): I10 - Essential (primary) hypertension
[2020-07-22 21:07] LABS: Appearance Urine Clear (Clear); Bacteria Urine Automated Negative (Negative); Bilirubin Urine Negative (Negative); Blood Urine Trace (Negative); Color Urine Yellow; Epithelial Cell Urine Auto 20-30 /lpf (0-5); Glucose Urine UA 1+ (Negative); Ketones Urine Negative (Negative); Leukocyte Esterase Urine Negative (Negative); Nitrite Urine Negative (Negative); Protein Urine Trace (Negative); RBC Urine Automated 0-4 /hpf (0-4); Specific Gravity Urine 1.017 (1.000-1.030); Urobilinogen Urine Negative (Negative); pH Urine 5.5 (4.5-7.5)
[2020-07-22] MEDS ORDERED: OPTIRAY 320 125ml IV ONE (21:53)
[2020-07-22] MEDS ORDERED: LORazepam 3 MG/6 ML VIAL IV PRN (22:29)
[2020-07-22] MEDS ORDERED: MULTI-VITAMIN INFUSION 10 ML, THIAMINE HCL 100 MG, FOLIC ACID 1 MG in SODIUM CHLORIDE 0... IV ONE (22:29)
[2020-07-22] MEDS ORDERED: LORazepam 1 MG/2 ML VIAL IV PRN (22:29)
[2020-07-22] MEDS ORDERED: LACTATED RINGER'S 1,000 ML IV SCH (22:29)
[2020-07-22] MEDS ORDERED: ONDANSETRON INJ 2 MG/ML 2 ML VIAL IV PRN (22:29)
[2020-07-22] MEDS ORDERED: ACETAMINOPHEN 325 MG TAB PO PRN (22:29)
[2020-07-22] MEDS ORDERED: CALCIUM GLUCONATE 10% 2,000 MG in SODIUM CHLORIDE 0.9% 50 ML IV ONE (22:29)
[2020-07-22] MEDS ORDERED: ATIVAN IV ALCOHOL WITHDRAWL IV PRN (22:29)
[2020-07-22] MEDS: POTASSIUM CHLORIDE / WTR 10 MEQ/100 ML PLCT IV SCH (23:35)
[2020-07-22] MEDS: PIPERACILLIN/TAZOBACTAM 3.375 GM in DEXTROSE 5% 100 ML IV SCH (23:35)
[2020-07-22 23:55] LABS: Phosphorus 3.3 mg/dl (2.5-4.9); Thyroid Stimulating Hormone 0.466 uIu/ml (0.300-4.500)
[2020-07-23] MEDS: CARBIDOPA/LEVODOPA 25/100MG TAB PO SCH ×5 (00:47→21:13)
[2020-07-23] MEDS: POTASSIUM CHLORIDE / WTR 10 MEQ/100 ML PLCT IV SCH ×6 (00:52→14:31)
[2020-07-23 06:36] LABS: Hematocrit (blood only) 36.3 % (42-52); Hemoglobin 12.3 g/dL (14.0-18.0); Mean Corpuscular Hemoglobin 35.7 pg (25-34); Mean Corpuscular Hgb Conc 33.9 g/dL (32-36); Mean Corpuscular Volume 105.2 fL (80-100); RDW Coefficient of Variation 15.3 % (11.5-14.5); RDW Standard Deviation 58.9 fL (36.4-46.3); Red Blood Count 3.45 M/uL (4.7-6.1); White Blood Count 11.46 K/uL (4.8-10.8)
[2020-07-23 06:46] LABS: Mean Platelet Volume 11.7 fL (7.4-10.4); Platelet Count 82 K/uL (130-400)
[2020-07-23 07:07] LABS: BUN Creatinine Ratio 12.4 (10-20); Calcium 8.1 mg/dl (8.5-10.1); Creatinine Clr Calc Pharmacy 119.2 ml/min; Est GFR (African American) 130.3; Est GFR (Non-African American) 112.4; Potassium 3.3 mmol/L (3.5-5.1)
--- NOTE | 2020-07-23 07:17 | CT Scan Report ---
HEAD CTA HISTORY: SEIZURE, ?CVA TECHNIQUE: Multiaxial CT images of the head were performed both before and after the intravenous admi nistration of contrast to evaluate the major cerebral vessels. Maximum intensity projection images we re also obtained. A dose lowering technique was utilized adhering to the principles of ALARA. COMPARISON: Head CT 07/22/2020. FINDINGS: There is no mass, hematoma, midline shift, or acute infarct. Visualized intracranial advisory internship al carotid arteries, distal vertebral arteries, and basilar artery are widely patent. There is no sig nificant stenosis, occlusion, or aneurysm seen within the bilateral ACAs, MCAs, or facility planner. IMPRESSION: No significant stenosis, occlusion, or aneurysm within the [place]. ACT 112: Negative or not required by law. Electronically signed by: Deandre Ko M.D. 07/23/2020 7:16 AM
[2020-07-23 07:19] LABS: Basophils # (auto) 0.01 K/uL (0-0.2); Basophils % (auto) 0.1 %; Immature Granulocytes # (auto) 0.03 K/uL (0.00-0.02); Immature Granulocytes % (auto) 0.3 %; Lymphocytes % (auto) 9.6 %; Monocytes # (auto) 1.08 K/uL (0.11-0.59); Monocytes % (auto) 9.4 %; Neutrophils # (auto) 9.24 K/uL (1.4-6.5); Neutrophils % (auto) 80.6 %; RBC Morphology Unremarkable
--- NOTE | 2020-07-23 08:14 | CT Scan Report ---
CT ANGIOGRAPHY OF THE NECK WITH CONTRAST CLINICAL HISTORY: SEIZURE, ?CVA COMPARISON STUDY: No previous studies for comparison. Technique: CT angiography of the carotid and vertebral arteries was obtained using Virtual 3-D Display for [employer] 320 IV and 3D reconstruction on an independent workstation. NASCET criteria was utilized. Automated exposure c ontrol was utilized for the study. A dose lowering technique was utilized adhering to the principles of ALARA. CT DOSE: 637.77 mGy.cm Findings: Note is made of a 2.9 cm right upper anterior neck cyst. The etiology is indeterminate. The bilateral common carotid, cervical carotid and vertebral arteries are patent. The right vertebral ar vivien is dominant. There is severe stenosis of the left vertebral artery at the C4 level due to osteop hytes. There is no dissection. There is no aneurysm within the major vessels within neck. No intralum inal thrombus is noted. There is no cervical lymphadenopathy. Postoperative findings within the cervi marito spine are noted. There is mild atherosclerotic plaque within the vessels of the neck. IMPRESSION: 1. No stenosis within the bilateral common carotid or cervical internal carotid arteries. 2. Dominant, patent right vertebral artery. 3. Severe stenosis of the left vertebral artery at the C4 level due to osteophytes. ACT 112: Negative or not required by law. Electronically signed by: Lakhwinder Arias M.D. 07/23/2020 8:13 AM
[2020-07-23] MEDS: DULoxetine HCL 60 MG CAP PO SCH (08:23)
[2020-07-23] MEDS: lisinopril 10 MG TAB PO SCH (08:23)
[2020-07-23] MEDS: PIPERACILLIN/TAZOBACTAM 3.375 GM in DEXTROSE 5% 100 ML IV SCH ×2 (08:27→17:42)
[2020-07-23 11:22] LABS: Amphetamines+Metham, Urine Neg (Neg); Barbiturates, Urine Neg (Neg); Benzodiazepine, Urine Pos (Neg); Cocaine, Urine Neg (Neg); MDMA (Ecstacy), Urine Neg (Neg); Methadone, Urine Neg (Neg); Opiate, Urine Neg (Neg); Phencyclidine, Urine Neg (Neg)
[2020-07-23] MEDS ORDERED: GABAPENTIN 600 MG TAB PO ONE (12:25)
[2020-07-23] MEDS ORDERED: GABAPENTIN 1200MG ALCOHOL WITHDRAWAL LOAD PO ONE (12:26)
[2020-07-23] MEDS: levETIRAcetam 500 MG in 0.9 % SODIUM CHLORIDE 100 ML IV SCH (14:13)
--- NOTE | 2020-07-23 15:06 | Hospitalist Progress Note ---
Date of Service July 23, 2020 Assessment & Plan (1) Seizure: 60yo C male presenting with witnessed tonic-clonic seizure x 3 at home. Patient with no history of prior seizure. He does drink EtOH fairly regularly and has been trying to cut back - EtOH level currently <3. Ddx includes EtOH withdrawal, electrolyte abnormality, CVA, STROBOROMA OPERATOR infection. CT Head is unremarkable. He has mild hypokalemia and hypocalcemia, doubtful source of seizure. Na is normal. He was administered Keppra in the ER x 1gm. Some mild concern for right sided deficit - patient is following commands mostly with his left hand. He is withdrawing his right side from noxious stimuli. ?CVA/TIA vs Todds paralysis following seizure -Admit to PCU, maintain seizure precautions -Check CTA head and neck: negative -reviewed Utox, total CK, ammonia, TSH -will order MRI and Neurology consultation (2) Elevated lactic acid level: Patient with elevated lactic acid of 7.2 on intake labs. Possibly secondary to prolonged seizure activity. He was administered aggressive IVF in the ER x 3 liters. He is hemodynamically stable - no documented hypotensive episodes. His liver studies are largely intact with no evidence of synthetic dysfunction. (3) Thrombocytopenia: Platelets=83. No active bleeding. INR, renal function is WNL. Most likely secondary to toxic effects of EtOH -Continue to monitor (4) Macrocytic anemia: H/H -= 14.8 and 42.4. MCVFelevated at 105.2. Most likely secondary to Etoh effects. Patient had a normal B12 level in February 2020 of 394 as well as a normal Folate of 10.67 at that time. -Continue to monitor (5) Hypocalcemia: Ionized calcium is reduced at 1.05 -replenished. (6) Hypokalemia: Hypokalemia will replace (7) Depression: Chronic -Continue Duloxetine 60mg po q daily (8) Alcohol abuse: Patient with history of heavy EtoH use. Now drinks 1-2 beers/day and possibly has been sneaking some odessa as well. EtOH level = <3, ?withdrawal seizures -IV thiamine -Banana bag -AWSS -Seizure precautions (9) Hypertension: Mildly hypertensive -Continue Lisinopril 10mg po q AM -Continue to monitor (10) Parkinson disease: Chronic. Patient follows with Neurology - Dr. Ahmadi. -Continue Carbidopa-Levodopa as directed F/E/N - patient given 3L IVF in the ER. Continue LR at 75mL/hr x 1L. K and Ca repletion as above. Check PO4 x 1 and replete if needed. Repeat chemistry and Ical in AM. NPO for now, may advance diet if mental status improves. Ppx - Heriberto avoid chemo ppx due to low platelets Code - Full Dispo - Admit to PCU Admission and Anticipated Discharge Date Admission Date: July 22, 2020 Subjective Patient remains aphasic today. Does not relay any new complaints. Review of Systems Review of Systems: All systems reviewed & are unremarkable except as noted in HPI & below Physical Exam Physical Exam: General: patient somnolent, opens eyes to vebal stimuli, follows some commands, nonverbal Skin: warm, dry, intact, no rashes or lesions, some mottling of bilateral LEs HEENT: NC/AT, pupils small, reactive, anicteric sclera, conjunctiva without injection, external ear normal to inspection and nontender, nares patent, dry mucus membranes, dentition intact, no oropharyngeal lesions, neck supple, trachea midline, no LAD, no thyromegaly, no JVD Heart: +S1/S2, regular, tachycardic, no m/r/g Lungs: equal air entry bilaterally, no rales/rhonchi/wheezes Abd: +BS, soft, NT/ND, no masses/organomegaly/ascites Ext: cool, 2+ pulses in UE/LE bilaterally, no clubbing/cyanosis or edema Neuro: no focal findings, moves all extremities, aphasic Results & Data Results & Data ([facility]) Vital Signs (Past 12 Hours) Vital Signs Temp Pulse Resp BP Pulse Ox 07/23/20 11:03 37.7 C H 104 H 21 122/68 100 07/23/20 08:03 37.1 C 103 H 20 133/70 96 07/23/20 03:25 37.2 C 99 H 14 134/81 100 PG Care Time/CCT Total # of Minutes Spent Total Time Spent with Patient: Total time spent is greater than 50% in coordination of care (as documented) at patient's floor/unit and/or counseling patient: Coding Level of Care Code 69382 Subseq Hosp Care Lvl 3 Diagnoses Seizure R56.9 Elevated lactic acid level R79.89 Thrombocytopenia D69.6 Macrocytic anemia D53.9 Hypocalcemia E83.51 Hypokalemia E87.6 Depression F32.9 Depression Type: unspecified Alcohol abuse F10.10 Hypertension I10 Hypertension type: essential hypertension Parkinson disease G20 Time Spent (min) 35 (1) Depression Depression Type: unspecified Qualified Code(s): F32.9 - Major depressive disorder, single episode, unspecified (2) Hypertension Hypertension type: essential hypertension Qualified Code(s): I10 - Essential (primary) hypertension
--- NOTE | 2020-07-23 15:56 | Magnetic Resonance Report ---
MRI OF THE BRAIN WITHOUT AND WITH IV CONTRAST CLINICAL HISTORY: altered mental status COMPARISON STUDY: CT scan dated 07/22/2020 TECHNIQUE: MRI of the brain was performed from the vertex to the skull base utilizing various T1 and T2 weighted sequences. Following the IV administration of 5.5 mL of Gadavist contrast, additional enh anced images were obtained. FINDINGS: Sagittal T1, axial diffusion, proton density and T2 weighted axial, coronal FLAIR, and pre and post a xial T1-weighted images were acquired. These were supplemented with post gadolinium coronal T1 weight ed images. No intra or extra-axial mass lesions are visualized. Diffusion-weighted images reveal subtle increased signal in the region of the left insular cortex and left medial thalamus, left hippocampus. There are no corresponding signal abnormalities on ADC map i mages There is no pathologic enhancement in either of these areas. There is very subtle corresponding signal abnormality on FLAIR images in the hippocampus, and medial thalamus, and on this section T2-w eighted images in the left insular cortex region. The findings are not felt to represent a mass or ac osmany/subacute infarct. Given the patient's history, this may represent a post ictal signal abnormality . A repeat study in one week is recommended. There is no evidence of ventricular dilatation. There are no abnormal flow voids. There is no evidence of pathologic enhancement. IMPRESSION: 1. Subtle signal abnormalities on diffusion-weighted imaging involving the left insular cortex, left medial thalamus, and left hippocampus. There is no corresponding ADC map signal abnormality. There is very subtle corresponding signal abnormality on FLAIR images in the left hippocampus and left medial thalamus, and on thin section T2-weighted images in the left insular cortex region.. Given the patie nt's history, this may represent a post ictal signal abnormality. 2. The findings are not felt to represent an acute or subacute infarct. Neoplasm is very unlikely. En cephalitis is also very unlikely. 3. A repeat MRI of the brain in 1 weeks' time is recommended. ACT 112: Negative or not required by law. Electronically signed by: Andriy Guzmán M.D. 07/23/2020 3:54 PM
[2020-07-23] MEDS: GABAPENTIN 600 MG TAB PO SCH ×2 (17:42→23:55)
--- NOTE | 2020-07-23 23:13 | Electrocardiogram Report ---
Test Reason : Blood Pressure : / mmHG Vent. Rate : 112 BPM Atrial Rate : 112 BPM P-R Int : 130 ms QRS Dur : 094 ms QT Int : 362 ms P-R-T Axes : 082 078 046 degrees QTc Int : 494 ms Sinus tachycardia Right atrial enlargement Nonspecific ST abnormality Abnormal ECG When compared with ECG of 19-FEB-2020 18:53, Nonspecific T wave abnormality no longer evident in Lateral leads Confirmed by Hugo Busch ([id number]) on 07/23/2020 11:12:47 PM Referred By: REFERRED SELF Confirmed By:Hugo Busch
[2020-07-24] MEDS: LORazepam 2 MG/4 ML VIAL IV PRN ×5 (00:01→23:45)
[2020-07-24] MEDS: PIPERACILLIN/TAZOBACTAM 3.375 GM in DEXTROSE 5% 100 ML IV SCH ×4 (00:10→23:44)
[2020-07-24] MEDS: levETIRAcetam 500 MG in 0.9 % SODIUM CHLORIDE 100 ML IV SCH ×2 (00:45→14:10)
[2020-07-24] MEDS: CARBIDOPA/LEVODOPA 25/100MG TAB PO SCH ×4 (02:29→20:09)
[2020-07-24] MEDS: DULoxetine HCL 60 MG CAP PO SCH (08:22)
[2020-07-24] MEDS: lisinopril 10 MG TAB PO SCH (08:22)
[2020-07-24] MEDS: GABAPENTIN 600 MG TAB PO SCH ×3 (08:22→23:44)
[2020-07-24 10:02] LABS: Hematocrit (blood only) 32.8 % (42-52); Hemoglobin 11.4 g/dL (14.0-18.0); Mean Corpuscular Hemoglobin 36.3 pg (25-34); Mean Corpuscular Hgb Conc 34.8 g/dL (32-36); Mean Corpuscular Volume 104.5 fL (80-100); RDW Coefficient of Variation 14.9 % (11.5-14.5); RDW Standard Deviation 56.9 fL (36.4-46.3); Red Blood Count 3.14 M/uL (4.7-6.1); White Blood Count 11.26 K/uL (4.8-10.8)
[2020-07-24 10:04] LABS: Basophils # (auto) 0.01 K/uL (0-0.2); Basophils % (auto) 0.1 %; Eosinophils # (auto) 0.01 K/uL (0-0.5); Eosinophils % (auto) 0.1 %; Immature Granulocytes # (auto) 0.03 K/uL (0.00-0.02); Immature Granulocytes % (auto) 0.3 %; Lymphocytes # (auto) 1.81 K/uL (1.2-3.4); Lymphocytes % (auto) 16.1 %; Mean Platelet Volume 11.1 fL (7.4-10.4); Monocytes # (auto) 1.62 K/uL (0.11-0.59); Monocytes % (auto) 14.4 %; Neutrophils # (auto) 7.78 K/uL (1.4-6.5); Platelet Count 88 K/uL (130-400)
--- NOTE | 2020-07-24 10:15 | Neurology Consultation ---
Date of Consultation July 24, 2020 Assessment & Plan (1) Seizure: (2) Alcohol abuse: (3) Parkinson disease: Probable alcohol withdrawal seizure with some suggestion of right sided postictal weakness noted by the admitting physician. Patient's brain MRI does reveal several subtle areas of restricted diffusion (without associated ADC map signal change) within the left cerebral hemisphere that are most likely post ictal. He has been loaded with Keppra and should continue with this medication, 500 mg IV every 12 hours. Follow-up with EEG which will be completed this morning. A repeat brain MRI in 1 week has been recommended by radiology as well, I agree with this recommendation. Patient can resume his Sinemet for Parkinson's disease when he is able to reliably take his oral medications. Continue supportive medical care including treatment for alcohol withdrawal and other acute medical issues. History of Present Illness Reason for Consultation: Altered mental status, seizure Requesting Physician: Dr. Jose Alfredo Rodriguez Attending Physician: Jose Alfredo Rodriguez History of Present Illness The patient is a 60-year-old male with a history of alcoholism who was brought to the emergency department yesterday by emergency medical services after 3 seizures treated with Versed and lorazepam followed by SVT, treated with adenosine. He was apneic and bag ventilated for about 2 minutes and aroused but was with persistent altered mental status. A blood alcohol level and CT of the head were negative. Top consideration was for alcohol withdrawal related seizure and persistent postictal state further confounded by benzodiazepine related sedation. He was also treated with a 1 g loading dose of Keppra. There was some concern for a right sided deficit as he appeared to be moving the left hand in a more purposeful fashion. He was seen by his primary care physician last month. Issues at that time included hypertension, Parkinson's disease, depression, as well as his history of alcohol abuse. It looks like he follows with Dr. Ahmadi, neurologist and [facility], for Parkinson's disease. He was hospitalized this past February at [facility] for treatment of pancreatitis. The patient does not arouse from sleep this morning and I am unab le to obtain any history directly from the patient. The above information was gathered by chart review. Additional imaging completed during this current hospitalization included CT angiography of the head and neck and brain MRI. The MRI does reveal diffusion-weighted signal changes within the left cerebral hemisphere that are likely post ictal rather than ischemic. Imaging described in further detail below. Allergies Allergy/AdvReac Type Severity Reaction Status Date / Time No Known Drug Allergies Allergy Verified 07/22/20 19:29 Home Medications Medication Instructions Recorded Confirmed Type duloxetine 60 mg capsule,delayed 60 mg PO QAM 05/16/19 07/22/20 History release carbidopa 25 mg-levodopa 100 mg 1 tab PO DIRECTED #120 tab 06/18/20 07/22/20 Rx tablet lisinopril 10 mg PO QAM 07/22/20 07/22/20 History Patient History Medical History Alcohol abuse Cervical spondylosis Depression Erectile dysfunction Hypertension Parkinson disease Vertigo Surgical History Hx of neck surgery (05/2018) Status post tooth extraction Family History Aunt Parkinson disease Denies family history of Ovarian cancer Prostate cancer Myocardial infarction Breast cancer Lung cancer Colorectal cancer Social History Smoking Status: Current every day smoker Tobacco Type: Cigarettes Age Started Using Tobacco: 17; packs per day: 1; Cigarettes Per Day: 20; Second Hand Exposure: No; Hx Alcohol Use: Yes Alcohol type: beer Alcohol Intake Frequency Comment: 2-3 beers per day; h/o 1/2 gallon odessa per week Hx Substance Use: Yes Last Used Substance: Unknown Preferred Language: Divehi Communication Ability: Unable Visual Impairment: No Limitations Hearing Ability: Normal Java Application 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 Required: No Beliefs That Will Affect Care: None marital status: Single Current Living Situation: Other Current Living Situation Comment: s/o current occupational status: disabled Feels Safe at Home: Yes Childhood Exposure to Second-Hand Smoke: Yes Diet Comment: regular caffeine: No during the past year weight has: remained stable Dental Care, Regularly: No Physical Activity Frequency: Does not Exercise Seatbelt Use: always Sunscreen Use: No Assistive Devices: None Review of Systems Review of Systems: Unobtainable due to reduced consciousness Exam (Neuro) Physical Exam: The patient is obtunded this morning it does not arouse with voice, tactile, or noxious stimulation thus limiting his neurological examination. Testing of orientation and higher integrative cognitive functions could not be completed. Evaluation of cranial nerve function is also likewise limited. Pupils are small, equal, and minimally reactive. There is no gaze preference. Blink and oculocephalic reflexes are intact. Examination of sensory function and coordination could not be completed. Deep tendon reflexes are diffusely diminished. Plantar responses withdrawal. Ophthalmoscopic examination cannot be completed due to poor patient cooperation and relatively small pupil size. Carotid pulses normal bilaterally, no bruits to auscultation. Evaluation of gait, station, and muscle strength cannot be completed. There is slightly increased flexor tone for the right upper limb. Right lower limb held in an extensor position although tone normal. No atrophy or abnormal movements appreciated. Results & Data ([facility]) Vital Signs (Past 12 Hours) Vital Signs Temp Pulse Pulse Resp BP Pulse Ox 07/24/20 08:07 36.5 C 99 H 18 124/69 98 07/24/20 07:00 90 07/24/20 03:48 37.2 C 95 H 18 123/70 99 07/24/20 00:00 36.7 C 71 18 171/81 H 98 Laboratory Results WBC 11.26, hemoglobin 11.4, hematocrit 32.8, platelet count 88, ESR 5, sodium 138, potassium 3.3, BUN 7, creatinine 0.56, glucose 105, calcium 8.1, ammonia 23.4, CRP 1.49, ethyl alcohol less than 3.0, UDS positive for marijuana Diagnostic Findings A CT of the head was negative for hemorrhage or acute process. CTA of the head negative for stenosis, occlusion, or aneurysm. CTA of the neck revealed a dominant right vertebral artery and severe stenosis of the left vertebral artery at the C4 level due to osteophytes. No stenosis within the bilateral common carotid or cervical internal carotid arteries. An MRI of the brain revealed subtle signal abnormalities on diffusion-weighted imaging involving the left insular cortex, left medial thalamus, and left hippocampus. There was no corresponding ADC map signal abnormality. There was corresponding subtle signal abnormality on FLAIR/T2 imaging within the left hippocampus and medial left thalamus and left insular cortex. The signal changes were felt to be more consistent with post ictal signal abnormality rather than acute or subacute infarct. These findings were observed by the interpreting radiologist. There was no pathologic postcontrast enhancement. These findings were observed by the interpreting radiologist. I reviewed the images and agree. Coding Level of Care Code 71374 Initial Inpt Care Lvl 3 Diagnoses Seizure R56.9 Alcohol abuse F10.10 Parkinson disease G20
[2020-07-24 10:33] LABS: BUN Creatinine Ratio 21.4 (10-20); Bilirubin Direct 0.6 mg/dl (0-0.2); Calcium 8.3 mg/dl (8.5-10.1); Creatinine Clr Calc Pharmacy 119.2 ml/min; Est GFR (African American) 130.3; Est GFR (Non-African American) 112.4; Potassium 2.9 mmol/L (3.5-5.1)
[2020-07-24 10:36] LABS: Bilirubin,Total 1.6 mg/dl (0.2-1); Total Protein 5.8 gm/dl (6.4-8.2)
--- NOTE | 2020-07-24 11:03 | Electroencephalogram ---
EEG Procedure Note Date of Service July 24, 2020 Start / End Times Start Time: 10:34 AM End Time: 10:54 AM Referring Physician Colin Che MD History Alcohol withdrawal seizure, right-sided postictal weakness Home Medication List Medication Instructions Recorded Confirmed Type duloxetine 60 mg capsule,delayed 60 mg PO QAM 05/16/19 07/22/20 History release carbidopa 25 mg-levodopa 100 mg 1 tab PO DIRECTED #120 tab 06/18/20 07/22/20 Rx tablet lisinopril 10 mg PO QAM 07/22/20 07/22/20 History Inpatient Medication List Carbidopa/Levodopa (Carbidopa/Levodopa 25/100mg Tab) 1 tab PO 0200,0800,1400,2000 [facility] Stop: 08/21/20 22:28 Last Admin: 07/24/20 08:22 Dose: 1 tab Documented by: [id number] Admin: 07/24/20 02:29 Dose: 1 tab Documented by: [id number] Admin: 07/23/20 21:13 Dose: 1 tab Documented by: [id number] Admin: 07/23/20 14:13 Dose: 1 tab Documented by: [id number] Admin: 07/23/20 08:23 Dose: Not Given Documented by: [id number] Admin: 07/23/20 02:34 Dose: Not Given Documented by: [id number] Admin: 07/23/20 00:47 Dose: Not Given Documented by: [id number] Duloxetine HCl (Duloxetine Hcl 60 Mg Cap) [facility] [place]: 08/22/20 08:59 Last Admin: 07/24/20 08:22 Dose: 60 mg Documented by: [id number] Admin: 07/23/20 08:23 Dose: Not Given Documented by: [id number] Gabapentin (Gabapentin 600 Mg Tab) 600 mg PO Q8H [facility] Stop: 07/25/20 00:01 Last Admin: 07/24/20 08:22 Dose: 600 mg Documented by: [id number] Lorazepam (Ativan) 2 mg in 4 mls @ 4 mls/min IV UD PRN; Protocol PRN Reason: EtOH Withdrawl AWSS Score 8,9 Stop: 08/21/20 22:28 Last Admin: 07/24/20 09:12 Dose: 4 mls/min Documented by: [id number] Admin: 07/24/20 04:36 Dose: 4 mls/min Documented by: [id number] Admin: 07/24/20 00:01 Dose: 4 mls/min Documented by: [id number] Piperacillin Sod/Tazobactam (Sod 3.375 gm/ Dextrose) 115 mls @ 28.75 mls/hr IV Q8H [facility]; Protocol Stop: 07/25/20 00:00 Last Admin: 07/24/20 08:21 Dose: 28.8 mls/hr Documented by: [id number] Infusion: 07/24/20 06:53 Dose: 0 mls/hr Documented by: [id number] Admin: 07/24/20 00:10 Dose: 28.8 mls/hr Documented by: [id number] Infusion: 07/23/20 22:06 Dose: 0 mls/hr Documented by: [id number] Admin: 07/23/20 17:42 Dose: 28.8 mls/hr Documented by: [id number] Infusion: 07/23/20 12:44 Dose: 0 mls/hr Documented by: [id number] Admin: 07/23/20 08:27 Dose: 28.8 mls/hr Documented by: [id number] Infusion: 07/23/20 03:54 Dose: 0 mls/hr Documented by: [id number] Admin: 07/22/20 23:35 Dose: 28.8 mls/hr Documented by: [id number] Levetiracetam 500 mg/ Sodium (Chloride) 105 mls @ 420 mls/hr IV Q12H [facility] Stop: 08/22/20 12:59 Last Infusion: 07/24/20 06:53 Dose: 0 mls/hr Documented by: [id number] Admin: 07/24/20 00:45 Dose: 420 mls/hr Documented by: [id number] Infusion: 07/23/20 14:29 Dose: 0 mls/hr Documented by: [id number] Admin: 07/23/20 14:13 Dose: 420 mls/hr Documented by: [id number] Ioversol (Optiray 320 125ml) 118 ml IV ONCE ONE Last Admin: 07/22/20 21:59 Dose: 118 ml Documented by: [id number] Lisinopril (Lisinopril 10 Mg Tab) [facility] [place]: 08/22/20 08:59 Last Admin: 12/19/20 08:22 Dose: 10 mg Documented by: [id number] Admin: 07/23/20 08:23 Dose: Not Given Documented by: [id number] Discontinued Medications Gabapentin (Gabapentin 600 Mg Tab) 1,200 mg PO NOW ONE Stop: 07/23/20 12:26 Last Admin: 07/23/20 14:13 Dose: 1,200 mg Documented by: [id number] Gabapentin (Gabapentin 600 Mg Tab) 600 mg PO Q6H [facility] Stop: 07/24/20 00:01 Last Admin: 07/23/20 23:55 Dose: 600 mg Documented by: [id number] Admin: 07/23/20 17:42 Dose: 600 mg Documented by: [id number] Sodium Chloride (Nss 1000ml) 2,000 mls @ 999 mls/hr IV .Q2H1M ONE Stop: 07/22/20 20:05 Last Infusion: 07/22/20 20:40 Dose: 0 mls/hr Documented by: [id number] Admin: 07/22/20 19:04 Dose: 999 mls/hr Documented by: [id number] Thiamine HCl 100 mg/ Syringe 10 mls @ 2 mls/min IV NOW STA Stop: 07/22/20 18:09 Last Admin: 07/22/20 18:42 Dose: 2 mls/min Documented by: [id number] Folic Acid 1 mg/ Syringe 10 mls @ 5 mls/min IV NOW STA Stop: 07/22/20 18:06 Last Admin: 07/22/20 18:42 Dose: 5 mls/min Documented by: [id number] Levetiracetam 1,000 mg/ Sodium (Chloride) 110 mls @ 440 mls/hr IV NOW STA Stop: 07/22/20 18:22 Last Infusion: 07/22/20 19:00 Dose: 0 mls/hr Documented by: [id number] Admin: 07/22/20 18:42 Dose: 440 mls/hr Documented by: [id number] Lorazepam (Ativan) 0.5 mg in 1 mls @ 1 mls/min IV NOW STA Stop: 07/22/20 19:21 Last Admin: 07/22/20 19:31 Dose: 1 mls/min Documented by: [id number] Piperacillin Sod/Tazobactam Sod (Zosyn) 4.5 gm in 120 mls @ 240 mls/hr IV NOW ONE Stop: 07/22/20 19:58 Last Infusion: 07/22/20 20:45 Dose: 0 mls/hr Documented by: [id number] Admin: 07/22/20 20:13 Dose: 240 mls/hr Documented by: [id number] Sodium Chloride (Nss 1000ml) 1,000 mls @ 999 mls/hr IV .Q1H1M ONE Stop: 07/22/20 20:29 Last Infusion: 07/22/20 22:26 Dose: 0 mls/hr Documented by: [id number] Admin: 07/22/20 20:43 Dose: 999 mls/hr Documented by: [id number] Calcium Gluconate 2,000 mg/ (Sodium Chloride) 70 mls @ 240 mls/hr IV NOW ONE Stop: 07/22/20 22:46 Last Infusion: 07/23/20 00:48 Dose: 0 mls/hr Documented by: [id number] Admin: 07/22/20 23:20 Dose: 240 mls/hr Documented by: [id number] Multivitamins 10 ml/ Thiamine HCl 100 mg/ Folic Acid 1 mg/Sodium Chloride 1,011.2 mls @ 500 mls/hr IV .Q2H2M ONE Stop: 07/23/20 00:30 Last Infusion: 07/23/20 02:17 Dose: 0 mls/hr Documented by: [id number] Admin: 07/22/20 23:19 Dose: 500 mls/hr Documented by: [id number] Potassium Chloride (K Benito / Wtr) 10 meq in 100 mls @ 100 mls/hr IV Q1H [facility] Stop: 07/23/20 02:59 Last Infusion: 07/23/20 07:14 Dose: 0 mls/hr Documented by: [id number] Admin: 07/23/20 03:54 Dose: 100 mls/hr Documented by: [id number] Infusion: 07/23/20 02:52 Dose: 100 mls/hr Documented by: [id number] Admin: 07/23/20 01:52 Dose: 100 mls/hr Documented by: [id number] Infusion: 07/23/20 01:52 Dose: 0 mls/hr Documented by: [id number] Admin: 07/23/20 00:52 Dose: 100 mls/hr Documented by: [id number] Infusion: 07/23/20 00:35 Dose: 0 mls/hr Documented by: [id number] Admin: 07/22/20 23:35 Dose: 100 mls/hr Documented by: [id number] Lactated Ringer's (Lr) 1,000 mls @ 75 mls/hr IV .[id number] [facility] Stop: 07/23/20 11:48 Last Infusion: 07/23/20 17:42 Dose: 0 mls/hr Documented by: [id number] Admin: 07/23/20 01:51 Dose: 75 mls/hr Documented by: [id number] Potassium Chloride (K Benito / Wtr) 10 meq in 100 mls @ 100 mls/hr IV Q1H [facility] Stop: 07/23/20 15:29 Last Infusion: 07/23/20 16:35 Dose: 0 mls/hr Documented by: [id number] Admin: 07/23/20 14:31 Dose: 100 mls/hr Documented by: [id number] Infusion: 07/23/20 14:31 Dose: 100 mls/hr Documented by: [id number] Admin: 07/23/20 14:13 Dose: 100 mls/hr Documented by: [id number] Infusion: 07/23/20 13:38 Dose: 100 mls/hr Documented by: [id number] Admin: 07/23/20 12:38 Dose: 100 mls/hr Documented by: [id number] Ketamine HCl (Ketamine Hcl Inj 50 Mg/Ml 10 Ml Vial) Confirm Administered Dose 500 mg .ROUTE .STK-MED ONE Stop: 07/22/20 17:52 Last Admin: 07/22/20 20:44 Dose: Not Given Documented by: [id number] Succinylcholine Chloride (Succinylcholine Chloride 20 Mg/Ml 10 Ml Vial) Confirm Administered Dose 200 mg IV .STK-MED ONE Stop: 07/22/20 17:52 Last Admin: 07/22/20 20:44 Dose: Not Given Documented by: [id number] Description This is a 21 electrode EEG with a single channel dedicated to limited EKG. The electrodes were placed in accordance with the International 10-20 system. The background rhythm consists of a mix of 10 Hz alpha and 6 Hz theta frequencies. There is a normal anterior to posterior organization. Photic stimulation is unremarkable. Hyperventilation is not performed. There is a prominent symmetrical beta rhythm. There are intermittent left frontal and right temporal sharps. Excessive movement artifact contaminates the latter half of the study. Interpretation This is an abnormal awake/drowsy EEG revealing a prominent benzodiazepine effect as well as potential nonlocalizable epileptiform abnormalities. Clinical Correlation Please see today's neurology consult for clinical correlation. [facility] EEG Procedure Codes Indication for Procedure (1) Seizure: Neurology Neurology: 37506 EEG include record awake & drowsy
[2020-07-24] MEDS: POTASSIUM CHLORIDE / WTR 10 MEQ/100 ML PLCT IV SCH ×4 (11:40→14:51)
[2020-07-24 11:42] LABS: RBC Morphology Unremarkable
[2020-07-24] MEDS ORDERED: MULTI-VITAMIN INFUSION 10 ML, THIAMINE HCL 100 MG, FOLIC ACID 1 MG in SODIUM CHLORIDE 0... IV ONE (12:15)
[2020-07-24] MEDS: ACYCLOVIR SOD 600 MG in DEXTROSE 5% 100 ML IV SCH ×2 (12:57→20:10)
[2020-07-24 23:07] LABS: 7-Aminoclonaz, Confirm NEGATIVE ng/mL (<25); Hydro-Alp Ur, GC/MS NEGATIVE ng/mL (<25); Hydroxyethylflurazepam, Conf NEGATIVE ng/mL (<50); Hydroxymidazolam Ur, GC/MS >2000 ng/mL (<50); Hydroxytriazolam NEGATIVE ng/mL (<50); Lorazepam, Ur GC/MS 291 ng/mL (<50); Marijuana Quant, GCMS Urine 142 ng/mL (<5); Nordiazepam, Confirm NEGATIVE ng/mL (<50); Oxazepam Ur, GC/MS NEGATIVE ng/mL (<50); Temazepam, Confirm NEGATIVE ng/mL (<50)
--- NOTE | 2020-07-24 23:43 | Hospitalist Progress Note ---
Date of Service July 24, 2020 Assessment & Plan (1) Seizure: 60yo C male presenting with witnessed tonic-clonic seizure x 3 at home. Patient with no history of prior seizure. He does drink EtOH fairly regularly and has been trying to cut back - EtOH level currently <3. Ddx includes EtOH withdrawal, electrolyte abnormality, CVA, SERVICE GIRL infection. CT Head is unremarkable. He has mild hypokalemia and hypocalcemia, doubtful source of seizure. Na is normal. He was administered Keppra in the ER x 1gm. Some mild concern for right sided deficit - patient is following commands mostly with his left hand. He is withdrawing his right side from noxious stimuli. ?CVA/TIA vs Todds paralysis following seizure -Admit to PCU, maintain seizure precautions -Check CTA head and neck: negative -reviewed Utox, total CK, ammonia, TSH -MRI was negative. Will order acyclovir empircally for encephalitis after discussing with his chris's history. Gien that he slowly became confused and then stopped drinking. Encephalitis enters the differential. She also reports poor diet, wernicek encephalopathy may also play a role. Will order thiamine as well. (2) Elevated lactic acid level: Patient with elevated lactic acid of 7.2 on intake labs. Possibly secondary to prolonged seizure activity. He was administered aggressive IVF in the ER x 3 liters. He is hemodynamically stable - no documented hypotensive episodes. His liver studies are largely intact with no evidence of synthetic dysfunction. (3) Thrombocytopenia: Platelets=83. No active bleeding. INR, renal function is WNL. Most likely secondary to toxic effects of EtOH -Continue to monitor (4) Macrocytic anemia: H/H -= 14.8 and 42.4. MCVFelevated at 105.2. Most likely secondary to Etoh effects. Patient had a normal B12 level in February 2020 of 394 as well as a normal Folate of 10.67 at that time. -Continue to monitor (5) Hypocalcemia: Ionized calcium is reduced at 1.05 -replenished. (6) Hypokalemia: Hypokalemia will replace (7) Depression: Chronic -Continue Duloxetine 60mg po q daily (8) Alcohol abuse: Patient with history of heavy EtoH use. Now drinks 1-2 beers/day and possibly has been sneaking some odessa as well. EtOH level = <3, ?withdrawal seizures -IV thiamine -Banana bag -AWSS -Seizure precautions (9) Hypertension: Mildly hypertensive -Continue Lisinopril 10mg po q AM -Continue to monitor (10) Parkinson disease: Chronic. Patient follows with Neurology - Dr. Ahmadi. -Continue Carbidopa-Levodopa as directed Admission and Anticipated Discharge Date Admission Date: July 22, 2020 Subjective Patient is more awake today. Patient does not verbalize complaints. Review of Systems Review of Systems: Unobtainable due to cognitive status Physical Exam Physical Exam: General: patient somnolent, opens eyes to vebal stimuli, follows some commands, nonverbal Skin: warm, dry, intact, no rashes or lesions, some mottling of bilateral LEs HEENT: NC/AT, pupils small, reactive, anicteric sclera, conjunctiva without injection, external ear normal to inspection and nontender, nares patent, dry mucus membranes, dentition intact, no oropharyngeal lesions, neck supple, trachea midline, no LAD, no thyromegaly, no JVD Heart: +S1/S2, regular, tachycardic, no m/r/g Lungs: equal air entry bilaterally, no rales/rhonchi/wheezes Abd: +BS, soft, NT/ND, no masses/organomegaly/ascites Ext: cool, 2+ pulses in UE/LE bilaterally, no clubbing/cyanosis or edema Neuro: no focal findings, moves all extremities, aphasic Results & Data Results & Data ([facility]) Vital Signs (Past 12 Hours) Vital Signs Temp Pulse Pulse Resp BP Pulse Ox 07/24/20 20:23 36.9 C 94 H 16 129/64 95 07/24/20 16:06 36.5 C 87 16 142/76 H 98 07/24/20 15:00 89 07/24/20 12:00 36.7 C 92 H 16 130/71 PG Care Time/CCT Total # of Minutes Spent Total Time Spent with Patient: Total time spent is greater than 50% in coordination of care (as documented) at patient's floor/unit and/or counseling patient: Coding Level of Care Code 59729 Subseq Hosp Care Lvl 3 Diagnoses Seizure R56.9 Elevated lactic acid level R79.89 Thrombocytopenia D69.6 Macrocytic anemia D53.9 Hypocalcemia E83.51 Hypokalemia E87.6 Depression F32.9 Depression Type: unspecified Alcohol abuse F10.10 Hypertension I10 Hypertension type: essential hypertension Parkinson disease G20 Time Spent (min) 35 (1) Depression Depression Type: unspecified Qualified Code(s): F32.9 - Major depressive disorder, single episode, unspecified (2) Hypertension Hypertension type: essential hypertension Qualified Code(s): I10 - Essential (primary) hypertension
[2020-07-25] MEDS: levETIRAcetam 500 MG in 0.9 % SODIUM CHLORIDE 100 ML IV SCH ×2 (00:32→13:12)
[2020-07-25] MEDS: CARBIDOPA/LEVODOPA 25/100MG TAB PO SCH ×4 (02:22→21:14)
[2020-07-25] MEDS: ACYCLOVIR SOD 600 MG in DEXTROSE 5% 100 ML IV SCH ×3 (04:04→21:14)
[2020-07-25] MEDS: LORazepam 2 MG/4 ML VIAL IV PRN ×2 (04:04→09:50)
[2020-07-25] MEDS: lisinopril 10 MG TAB PO SCH (08:49)
[2020-07-25] MEDS: MULTI-VITAMIN INFUSION 10 ML, THIAMINE HCL 100 MG, FOLIC ACID 1 MG in SODIUM CHLORIDE 0... IV SCH (08:56)
[2020-07-25] MEDS: DULoxetine HCL 60 MG CAP PO SCH (09:50)
[2020-07-25] MEDS: GABAPENTIN 600 MG TAB PO SCH ×2 (13:12→23:33)
--- NOTE | 2020-07-25 22:22 | Hospitalist Progress Note ---
Date of Service July 25, 2020 Assessment & Plan (1) Seizure: 60yo C male presenting with witnessed tonic-clonic seizure x 3 at home. Patient with no history of prior seizure. He does drink EtOH fairly regularly and has been trying to cut back - EtOH level currently <3. Ddx includes EtOH withdrawal, electrolyte abnormality, CVA, OPHTHALMIC TECHNICIAN infection. CT Head is unremarkable. He has mild hypokalemia and hypocalcemia, doubtful source of seizure. Na is normal. He was administered Keppra in the ER x 1gm. Some mild concern for right sided deficit - patient is following commands mostly with his left hand. He is withdrawing his right side from noxious stimuli. ?CVA/TIA vs Todds paralysis following seizure -Admit to PCU, maintain seizure precautions -Check CTA head and neck: negative -reviewed Utox, total CK, ammonia, TSH -MRI was negative. -Patient has improved over course of the past few days. -Unsure if acyclovir is helping, as he had improved on the day this was started (prior to first dose). will continue for now. Given that he slowly became confused and then stopped drinking. Encephalitis enters the differential. She also reports poor diet, wernicke's encephalopathy may also play a role. Will continue thiamine as well. (2) Elevated lactic acid level: Patient with elevated lactic acid of 7.2 on intake labs. Possibly secondary to prolonged seizure activity. He was administered aggressive IVF in the ER x 3 liters. He is hemodynamically stable - no documented hypotensive episodes. His liver studies are largely intact with no evidence of synthetic dysfunction. (3) Thrombocytopenia: Platelets=88. No active bleeding. INR, renal function is WNL. Most likely secondary to toxic effects of EtOH -Continue to monitor (4) Macrocytic anemia: secondary to alcohol intake. MCV elevated at 105.2. Patient had a normal B12 level in February 2020 of 394 as well as a normal Folate of 10.67 at that time. -Continue to monitor (5) Hypocalcemia: Ionized calcium is reduced at 1.05 -replenished. (6) Hypokalemia: Hypokalemia replaced (7) Depression: Chronic -Continue Duloxetine 60mg po q daily (8) Alcohol abuse: Patient with history of heavy EtoH use. Now drinks 1-2 beers/day and possibly has been sneaking some odessa as well. EtOH level = <3, ?withdrawal seizures -IV thiamine -Banana bag -AWSS -Seizure precautions (9) Hypertension: Mildly hypertensive -Continue Lisinopril 10mg po q AM -Continue to monitor (10) Parkinson disease: Chronic. Patient follows with Neurology - Dr. Ahmadi. -Continue Carbidopa-Levodopa as directed Admission and Anticipated Discharge Date Admission Date: July 22, 2020 Subjective Patient remains confused. D/W nurse, he has been pulling on his irwin catheter today. But he stops if you tell him too. Review of Systems Review of Systems: All systems reviewed & are unremarkable except as noted in HPI & below Physical Exam Physical Exam: General: Patient is awake, follows some commands, nonverbal Skin: warm, dry, intact, no rashes or lesions, some mottling of bilateral LEs HEENT: NC/AT, pupils small, reactive, anicteric sclera, conjunctiva without injection, external ear normal to inspection and nontender, nares patent, dry mu cus membranes, dentition intact, no oropharyngeal lesions, neck supple, trachea midline, no LAD, no thyromegaly, no JVD Heart: +S1/S2, regular, tachycardic, no m/r/g Lungs: equal air entry bilaterally, no rales/rhonchi/wheezes Abd: +BS, soft, NT/ND, no masses/organomegaly/ascites Ext: cool, 2+ pulses in UE/LE bilaterally, no clubbing/cyanosis or edema Neuro: no focal findings, moves all extremities, aphasic Results & Data Results & Data ([facility]) Vital Signs (Past 12 Hours) Vital Signs Temp Pulse Pulse Resp BP Pulse Ox 07/25/20 19:41 36.6 C 76 16 144/83 H 98 07/25/20 17:00 78 07/25/20 16:00 37.0 C 91 H 20 143/80 H 98 07/25/20 10:56 36.7 C 73 18 152/86 H 99 PG Care Time/CCT Total # of Minutes Spent Total Time Spent with Patient: Total time spent is greater than 50% in coordination of care (as documented) at patient's floor/unit and/or counseling patient: Coding Level of Care Code 60346 Subseq Hosp Care Lvl 3 Diagnoses Seizure R56.9 Elevated lactic acid level R79.89 Thrombocytopenia D69.6 Macrocytic anemia D53.9 Hypocalcemia E83.51 Hypokalemia E87.6 Depression F32.9 Depression Type: unspecified Alcohol abuse F10.10 Hypertension I10 Hypertension type: essential hypertension Parkinson disease G20 Time Spent (min) 35 (1) Depression Depression Type: unspecified Qualified Code(s): F32.9 - Major depressive disorder, single episode, unspecified (2) Hypertension Hypertension type: essential hypertension Qualified Code(s): I10 - Essential (primary) hypertension
[2020-07-26] MEDS: levETIRAcetam 500 MG in 0.9 % SODIUM CHLORIDE 100 ML IV SCH ×2 (02:01→13:32)
[2020-07-26] MEDS: CARBIDOPA/LEVODOPA 25/100MG TAB PO SCH ×4 (02:01→20:43)
[2020-07-26] MEDS: ACYCLOVIR SOD 600 MG in DEXTROSE 5% 100 ML IV SCH ×3 (04:01→20:43)
[2020-07-26] MEDS: LORazepam 2 MG/4 ML VIAL IV PRN (04:01)
[2020-07-26] MEDS: DULoxetine HCL 60 MG CAP PO SCH (08:41)
[2020-07-26] MEDS: lisinopril 10 MG TAB PO SCH (08:41)
[2020-07-26] MEDS: MULTI-VITAMIN INFUSION 10 ML, THIAMINE HCL 100 MG, FOLIC ACID 1 MG in SODIUM CHLORIDE 0... IV SCH (08:41)
[2020-07-26] MEDS: POTASSIUM CHLORIDE / WTR 10 MEQ/100 ML PLCT IV SCH ×4 (09:31→12:19)
[2020-07-26] MEDS: POTASSIUM CHLORIDE CRTAB 20 MEQ TABCR PO SCH ×2 (13:32→20:43)
--- NOTE | 2020-07-26 22:42 | Hospitalist Progress Note ---
Date of Service July 26, 2020 Assessment & Plan (1) Seizure: 60yo C male presenting with witnessed tonic-clonic seizure x 3 at home. Patient with no history of prior seizure. He does drink EtOH fairly regularly and has been trying to cut back - EtOH level currently <3. Ddx includes EtOH withdrawal, electrolyte abnormality, CVA, STORE TEAM LEADER infection. CT Head is unremarkable. He has mild hypokalemia and hypocalcemia, doubtful source of seizure. Na is normal. He was administered Keppra in the ER x 1gm. Some mild concern for right sided deficit - patient is following commands mostly with his left hand. He is withdrawing his right side from noxious stimuli. ?CVA/TIA vs Todds paralysis following seizure -Admit to PCU, maintain seizure precautions -Check CTA head and neck: negative -reviewed Utox, total CK, ammonia, TSH -MRI was negative. -Patient has waxed and waned over the past few days, still improved when he was here earlier. -Unsure if acyclovir is helping, as he had improved on the day this was started (prior to first dose). will continue for now. Given that he slowly became confused and then stopped drinking. Encephalitis enters the differential. She also reports poor diet, wernicke's encephalopathy may also play a role. Will continue thiamine as well. (2) Elevated lactic acid level: Patient with elevated lactic acid of 7.2 on intake labs. Possibly secondary to prolonged seizure activity. He was administered aggressive IVF in the ER x 3 liters. He is hemodynamically stable - no documented hypotensive episodes. His liver studies are largely intact with no evidence of synthetic dysfunction. (3) Thrombocytopenia: No active bleeding. INR, renal function is WNL. Most likely secondary to toxic effects of EtOH -Continue to monitor (4) Macrocytic anemia: secondary to alcohol intake. MCV elevated at 105.2. Patient had a normal B12 level in February 2020 of 394 as well as a normal Folate of 10.67 at that time. -Continue to monitor (5) Hypocalcemia: Ionized calcium is reduced at 1.05 -replenished. (6) Hypokalemia: Hypokalemia replaced (7) Depression: Chronic -Continue Duloxetine 60mg po q daily (8) Alcohol abuse: Patient with history of heavy EtoH use. Now drinks 1-2 beers/day and possibly has been sneaking some odessa as well. EtOH level = <3, ?withdrawal seizures -IV thiamine -Banana bag -AWSS -Seizure precautions (9) Hypertension: Mildly hypertensive -Continue Lisinopril 10mg po q AM -Continue to monitor (10) Parkinson disease: Chronic. Patient follows with Neurology - Dr. Ahmadi. -Continue Carbidopa-Levodopa as directed Admission and Anticipated Discharge Date Admission Date: July 22, 2020 Subjective 60 yo male is confused. Updated his fiance on the phone. Review of Systems Review of Systems: All systems reviewed & are unremarkable except as noted in HPI & below Physical Exam Physical Exam: General: Patient is awake, follows some commands, nonverbal Skin: warm, dry, intact, no rashes or lesions, some mottling of bilateral LEs HEENT: NC/AT, pupils small, reactive, anicteric sclera, conjunctiva without injection, external ear normal to inspection and nontender, nares patent, dry mucus membranes, dentition intact, no oropharyngeal lesions, neck supple, trachea midline, no LAD, no thyromegaly, no JVD Heart: +S1/S2, regular, tachycardic, no m/r/g Lungs: equal air entry bilaterally, no rales/rhonchi/wheezes Abd: +BS, soft, NT/ND, no masses/organomegaly/ascites Ext: cool, 2+ pulses in UE/LE bilaterally, no clubbing/cyanosis or edema Neuro: no focal findings, moves all extremities, talks but only in 2-3 word sen tences. Results & Data Results & Data ([facility]) Vital Signs (Past 12 Hours) Vital Signs Temp Pulse Resp BP Pulse Ox 07/26/20 19:34 37.4 C 99 H 18 173/82 H 95 07/26/20 11:31 36.9 C 84 16 145/78 H 98 PG Care Time/CCT Total # of Minutes Spent Total Time Spent with Patient: Total time spent is greater than 50% in coordination of care (as documented) at patient's floor/unit and/or counseling patient: Coding Level of Care Code 71415 Subseq Hosp Care Lvl 3 Diagnoses Seizure R56.9 Elevated lactic acid level R79.89 Thrombocytopenia D69.6 Macrocytic anemia D53.9 Hypocalcemia E83.51 Hypokalemia E87.6 Depression F32.9 Depression Type: unspecified Alcohol abuse F10.10 Hypertension I10 Hypertension type: essential hypertension Parkinson disease G20 Time Spent (min) 35 (1) Depression Depression Type: unspecified Qualified Code(s): F32.9 - Major depressive disorder, single episode, unspecified (2) Hypertension Hypertension type: essential hypertension Qualified Code(s): I10 - Essential (primary) hypertension
[2020-07-27] MEDS ORDERED: GABAPENTIN 600 MG TAB PO SCH
[2020-07-27] MEDS: levETIRAcetam 500 MG in 0.9 % SODIUM CHLORIDE 100 ML IV SCH ×2 (00:49→12:29)
[2020-07-27] MEDS: CARBIDOPA/LEVODOPA 25/100MG TAB PO SCH ×4 (01:10→20:41)
[2020-07-27] MEDS: ACYCLOVIR SOD 600 MG in DEXTROSE 5% 100 ML IV SCH ×2 (04:56→12:29)
[2020-07-27 06:59] LABS: Basophils # (auto) 0.01 K/uL (0-0.2); Basophils % (auto) 0.2 %; Eosinophils # (auto) 0.11 K/uL (0-0.5); Eosinophils % (auto) 2.1 %; Hematocrit (blood only) 31.9 % (42-52); Hemoglobin 11.2 g/dL (14.0-18.0); Immature Granulocytes # (auto) 0.01 K/uL (0.00-0.02); Immature Granulocytes % (auto) 0.2 %; Lymphocytes # (auto) 1.19 K/uL (1.2-3.4); Lymphocytes % (auto) 22.6 %; Mean Corpuscular Hemoglobin 35.7 pg (25-34); Mean Corpuscular Hgb Conc 35.1 g/dL (32-36); Mean Corpuscular Volume 101.6 fL (80-100); Mean Platelet Volume 10.3 fL (7.4-10.4); Monocytes # (auto) 1.61 K/uL (0.11-0.59); Monocytes % (auto) 30.6 %; Neutrophils # (auto) 2.33 K/uL (1.4-6.5); Neutrophils % (auto) 44.3 %; Platelet Count 205 K/uL (130-400); RDW Coefficient of Variation 14.6 % (11.5-14.5); RDW Standard Deviation 53.6 fL (36.4-46.3); Red Blood Count 3.14 M/uL (4.7-6.1); White Blood Count 5.26 K/uL (4.8-10.8)
[2020-07-27 07:36] LABS: Alanine Aminotransferase 15 U/L (12-78); Albumin Level 2.8 gm/dl (3.4-5.0); Aspartate Aminotransferase 113 U/L (15-37); BUN Creatinine Ratio 10.2 (10-20); Blood Urea Nitrogen 3 mg/dl (7-18); Calcium 8.5 mg/dl (8.5-10.1); Carbon Dioxide 28 mmol/L (21-32); Chloride 101 mmol/L (98-107); Creatinine Clr Calc Pharmacy 206.7 ml/min; Est GFR (African American) > 150.0; Est GFR (Non-African American) 139.7; Glucose 90 mg/dl (70-99); Potassium 2.9 mmol/L (3.5-5.1); Sodium 137 mmol/L (136-145)
[2020-07-27 07:39] LABS: Albumin Globulin Ratio 0.9 (0.9-2); Alkaline Phosphatase 48 U/L (45-117); Bilirubin,Total 0.6 mg/dl (0.2-1); Total Protein 5.8 gm/dl (6.4-8.2)
[2020-07-27] MEDS: POTASSIUM CHLORIDE CRTAB 20 MEQ TABCR PO SCH (09:00)
[2020-07-27] MEDS: DULoxetine HCL 60 MG CAP PO SCH (09:00)
[2020-07-27] MEDS: lisinopril 10 MG TAB PO SCH (09:00)
[2020-07-27] MEDS: MULTI-VITAMIN INFUSION 10 ML, THIAMINE HCL 100 MG, FOLIC ACID 1 MG in SODIUM CHLORIDE 0... IV SCH (09:01)
--- NOTE | 2020-07-27 23:01 | Hospitalist Progress Note ---
Date of Service July 27, 2020 Assessment & Plan (1) Seizure: 60yo C male presenting with witnessed tonic-clonic seizure x 3 at home. Patient with no history of prior seizure. He does drink EtOH fairly regularly and has been trying to cut back - EtOH level currently <3. Ddx includes EtOH withdrawal, electrolyte abnormality, CVA, SALES ORDER CLERK infection. CT Head is unremarkable. He has mild hypokalemia and hypocalcemia, doubtful source of seizure. Na is normal. He was administered Keppra in the ER x 1gm. Some mild concern for right sided deficit - patient is following commands mostly with his left hand. He is withdrawing his right side from noxious stimuli. ?CVA/TIA vs Todds paralysis following seizure -Admit to PCU, maintain seizure precautions -Check CTA head and neck: negative -reviewed Utox, total CK, ammonia, TSH -MRI was negative. -Patient has waxed and waned over the past few days, still improved when he was here earlier. -Actually doing much better today, but given how unsteady he is, will benefit from PT/OT eval and likely will require rehab. -Spoke with Neuro: will discontinue acyclovir, given that he started to improve piror to first dose. -will continue keppra, and may transition to PO. His also reports poor diet, wernicke's encephalopathy may also play a role. Will continue thiamine as well. (2) Elevated lactic acid level: Patient with elevated lactic acid of 7.2 on intake labs. Possibly secondary to prolonged seizure activity. He was administered aggressive IVF in the ER x 3 liters. He is hemodynamically stable - no documented hypotensive episodes. His liver studies are largely intact with no evidence of synthetic dysfunction. (3) Thrombocytopenia: No active bleeding. INR, renal function is WNL. Most likely secondary to toxic effects of EtOH -Continue to monitor (4) Macrocytic anemia: secondary to alcohol intake. MCV elevated at 105.2. Patient had a normal B12 level in February 2020 of 394 as well as a normal Folate of 10.67 at that time. -Continue to monitor (5) Hypocalcemia: Ionized calcium is reduced at 1.05 -replenished. (6) Hypokalemia: Hypokalemia replaced (7) Depression: Chronic -Continue Duloxetine 60mg po q daily (8) Alcohol abuse: Patient with history of heavy EtoH use. Now drinks 1-2 beers/day and possibly has been sneaking some odessa as well. EtOH level = <3, ?withdrawal seizures -IV thiamine -Banana bag -AWSS -Seizure precautions (9) Hypertension: Mildly hypertensive -Continue Lisinopril 10mg po q AM -Continue to monitor (10) Parkinson disease: Chronic. Patient follows with Neurology - Dr. Ahmadi. -Continue Carbidopa-Levodopa as directed Admission and Anticipated Discharge Date Admission Date: July 22, 2020 Subjective Patient is more awake today, and reports that he wants to go home. Nurse reports this is the best he has been while he has been here. Though she has concern that he is unsteady. Review of Systems Review of Systems: All systems reviewed & are unremarkable except as noted in HPI & below Physical Exam Physical Exam: General: Patient is awake, follows some commands, speaks in short sentences. Skin: warm, dry, intact, no rashes or lesions, some mottling of bilateral LEs HEENT: NC/AT, pupils small, reactive, anicteric sclera, conjunctiva without injection, external ear normal to inspection and nontender, nares patent, dry mucus membranes, dentition intact, no oropharyngeal lesions, neck supple, trachea midline, no LAD, no thyromegaly, no JVD Heart: +S1/S2, regular, tachycardic, no m/r/g Lungs: equal air entry bilaterally, no rales/rhonchi/wheezes Abd: +BS, soft, NT/ND, no masses/organomegaly/ascites Ext: cool, 2+ pulses in UE/LE bilaterally, no clubbing/cyanosis or edema Neuro: no focal findings, moves all extremities, talks but only in 2-3 word sentences. Oriented to person and place (new for 07/27/20). Results & Data Results & Data ([facility]) Vital Signs (Past 12 Hours) Vital Signs Temp Pulse Pulse Resp BP Pulse Ox 07/27/20 19:36 79 07/27/20 19:27 36.6 C 94 H 18 149/76 H 99 07/27/20 12:00 36.7 C 76 18 124/63 95 PG Care Time/CCT Total # of Minutes Spent Total Time Spent with Patient: Total time spent is greater than 50% in coordination of care (as documented) at patient's floor/unit and/or counseling patient: Coding Level of Care Code 09689 Subseq Hosp Care Lvl 2 Diagnoses Seizure R56.9 Elevated lactic acid level R79.89 Thrombocytopenia D69.6 Macrocytic anemia D53.9 Hypocalcemia E83.51 Hypokalemia E87.6 Depression F32.9 Depression Type: unspecified Alcohol abuse F10.10 Hypertension I10 Hypertension type: essential hypertension Parkinson disease G20 (1) Depression Depression Type: unspecified Qualified Code(s): F32.9 - Major depressive disorder, single episode, unspecified (2) Hypertension Hypertension type: essential hypertension Qualified Code(s): I10 - Essential (primary) hypertension
[2020-07-28] MEDS: levETIRAcetam 500 MG in 0.9 % SODIUM CHLORIDE 100 ML IV SCH ×2 (01:24→13:32)
[2020-07-28] MEDS: CARBIDOPA/LEVODOPA 25/100MG TAB PO SCH ×4 (01:24→19:48)
[2020-07-28] MEDS: MULTI-VITAMIN INFUSION 10 ML, THIAMINE HCL 100 MG, FOLIC ACID 1 MG in SODIUM CHLORIDE 0... IV SCH (08:49)
[2020-07-28] MEDS: lisinopril 10 MG TAB PO SCH (08:58)
[2020-07-28] MEDS: DULoxetine HCL 60 MG CAP PO SCH (08:58)
[2020-07-28 09:37] LABS: Basophils # (auto) 0.02 K/uL (0-0.2); Basophils % (auto) 0.4 %; Eosinophils # (auto) 0.14 K/uL (0-0.5); Eosinophils % (auto) 2.7 %; Hematocrit (blood only) 29.4 % (42-52); Hemoglobin 10.5 g/dL (14.0-18.0); Immature Granulocytes # (auto) 0.01 K/uL (0.00-0.02); Immature Granulocytes % (auto) 0.2 %; Lymphocytes # (auto) 1.18 K/uL (1.2-3.4); Lymphocytes % (auto) 22.9 %; Mean Corpuscular Hemoglobin 36.5 pg (25-34); Mean Corpuscular Hgb Conc 35.7 g/dL (32-36); Mean Corpuscular Volume 102.1 fL (80-100); Mean Platelet Volume 9.9 fL (7.4-10.4); Monocytes # (auto) 1.31 K/uL (0.11-0.59); Monocytes % (auto) 25.4 %; Neutrophils % (auto) 48.4 %; Platelet Count 275 K/uL (130-400); RDW Coefficient of Variation 14.6 % (11.5-14.5); RDW Standard Deviation 53.9 fL (36.4-46.3); Red Blood Count 2.88 M/uL (4.7-6.1); White Blood Count 5.16 K/uL (4.8-10.8)
[2020-07-28 10:08] LABS: Albumin Level 2.8 gm/dl (3.4-5.0); BUN Creatinine Ratio 7.7 (10-20); Calcium 8.5 mg/dl (8.5-10.1); Creatinine Clr Calc Pharmacy 131.8 ml/min; Est GFR (African American) 135.4; Est GFR (Non-African American) 116.8; Potassium 3.2 mmol/L (3.5-5.1)
[2020-07-28 10:11] LABS: Albumin Globulin Ratio 0.9 (0.9-2); Bilirubin,Total 0.5 mg/dl (0.2-1); Globulin 3.1 gm/dl (2.5-4.0); Total Protein 5.9 gm/dl (6.4-8.2)
[2020-07-28] MEDS ORDERED: POTASSIUM CHLORIDE CRTAB 20 MEQ TABCR PO STA (10:45)
--- NOTE | 2020-07-28 12:59 | Hospitalist Progress Note ---
Date of Service July 28, 2020 Assessment & Plan (1) Seizure: 60yo C male presenting with witnessed tonic-clonic seizure x 3 at home as well as right sided deficit. Patient with no history of prior seizure. He does drink EtOH fairly regularly and has been trying to cut back - EtOH level <3 on admission. -CTA head and neck negative for acute - CTA of the left vertebral artery at the C4 level due to osteophytes which - MRI with possible post ictal signal abnormality with recommendation to repeat in a week - will repeat 07/29 - EEG 07/24 abnormal secondary to benzodiazepine use and potentially non localizable epileptiform abnormalities -reviewed Utox positive for midazolam (likely from ambulance) and marijuana, TSH wnl, ammonia wnl -Per Neuro: discontinued acyclovir given that he started to improve prior to first dose. -will continue keppra, and may transition to PO. His also reports poor diet, Wernicke's encephalopathy may also play a role - continue thiamine (2) Alcohol abuse: Patient with history of heavy EtoH use, per outpatient notes was drinking half a gallon of odessa per day but had cut back in June. Now drinks 1-2 beers/day and possibly has been sneaking some odessa as well. EtOH level = <3, ?withdrawal seizures -IV thiamine -Banana bag -AWSS -Seizure precautions (3) Thrombocytopenia: Resolved (4) Macrocytic anemia: secondary to alcohol intake. MCV elevated, Patient had a normal B12 level in February 2020 of 394 as well as a normal Folate of 10.67 at that time. -Continue to monitor (5) Hypokalemia: Hypokalemia K 3.2 today - replaced repeat bmp tomorrow am (6) Elevated lactic acid level: Patient with elevated lactic acid of 7.2 on intake labs. Possibly secondary to prolonged seizure activity. He was administered aggressive IVF in the ER x 3 liters. He was hemodynamically stable - no documented hypotensive episodes. His liver studies are largely intact with no evidence of synthetic dysfunction. (7) Hypocalcemia: Replaced and resolved (8) Depression: Chronic -Continue Duloxetine 60mg po q daily (9) Hypertension: Mildly hypertensive -Continue Lisinopril 10mg po q AM -Continue to monitor (10) Parkinson disease: Chronic. Patient follows with Neurology - Dr. Ahmadi. -Continue Carbidopa-Levodopa as directed (11) Vertebral artery stenosis: Vertebral artery stenosis at C4 due to osteophytes. This is not an acute finding so will defer to outpatient follow up with vascular surgery. (12) Hematuria: Likely secondary to Lantigua catheter removal. Hgb only marginally decreased from yesterday. Will recheck am Patient also told fiance he is having some blood in his stool - likely hemorrhoids. If hgb is significantly decreased on am labs will re-evaluate Admission and Anticipated Discharge Date Admission Date: July 22, 2020 Subjective Mr. Coronado continues to be a bit confused but feels well and has no complaints. Updated patient's fiance over the phone Review of Systems Constitutional: no fever, no chills and no body aches Respiratory: no cough and no dyspnea Cardiovascular: no chest pain and no palpitations Gastrointestinal: no abdominal pain, no nausea and no vomiting Genitourinary: no dysuria and no urinary hesitancy Musculoskeletal: no back pain and no joint pain Integumentary: no rash Physical Exam Physical Exam: General: no distress Eyes: normal inspection, PERLL Respiratory: chest non tender, clear to auscultation, normal breath sounds, no respiratory distress, no accessory muscle use Cardiac: regular rate and rhythm, no rub or gallop, no murmur, r leg > left GI/: active bowel sounds, no abd pain or tenderness, soft, non distended Extremities: normal range of motion, normal strength, non tender Neuro/Psych: alert and oriented x 3, normal mood and affect Skin: normal color, dry Results & Data Results & Data ([facility]) Vital Signs (Past 12 Hours) Vital Signs Temp Pulse Pulse Resp BP Pulse Ox 07/28/20 11:07 36.5 C 85 18 155/88 H 100 07/28/20 08:53 102 H 07/28/20 07:12 37.2 C 97 H 18 152/77 H 99 07/28/20 02:53 36.6 C 97 H 18 145/77 H 99 PG Care Time/CCT Total # of Minutes Spent Total Time Spent with Patient: Total time spent is greater than 50% in coordination of care (as documented) at patient's floor/unit and/or counseling patient: Coding Level of Care Code 11992 Subseq Hosp Care Lvl 3 Diagnoses Seizure R56.9 Alcohol abuse F10.10 Thrombocytopenia D69.6 Macrocytic anemia D53.9 Hypokalemia E87.6 Elevated lactic acid level R79.89 Hypocalcemia E83.51 Depression F32.9 Depression Type: unspecified Hypertension I10 Hypertension type: essential hypertension Parkinson disease G20 Vertebral artery stenosis I65.09 Hematuria R31.9 (1) Depression Depression Type: unspecified Qualified Code(s): F32.9 - Major depressive disorder, single episode, unspecified (2) Hypertension Hypertension type: essential hypertension Qualified Code(s): I10 - Essential (primary) hypertension
--- NOTE | 2020-07-28 14:57 | Ultrasound Report ---
ULTRASOUND RIGHT LOWER EXTREMITY VENOUS CLINICAL HISTORY: Right leg pain. COMPARISON STUDY: No priors. TECHNIQUE: Real-time, grayscale, and color Doppler sonography of the deep veins of the right lower ex tremity was performed from the inguinal crease to the calf. Compression and augmentation were utilize d. FINDINGS: There is no sonographic evidence of deep venous thrombosis identified in the right lower ex tremity. The common femoral, superficial femoral, and popliteal veins are patent and normally alea sible. The greater saphenous vein and the profunda femoris vein at the junction with the common femor al vein are clear. The visualized calf veins are patent. IMPRESSION: There is no sonographic evidence of deep venous thrombosis identified in the right lower extremity. ACT 112: Negative or not required by law. Electronically signed by: Almas Shaffer M.D. 07/28/2020 2:56 PM
[2020-07-29] MEDS: CARBIDOPA/LEVODOPA 25/100MG TAB PO SCH ×3 (01:42→15:04)
[2020-07-29] MEDS: levETIRAcetam 500 MG in 0.9 % SODIUM CHLORIDE 100 ML IV SCH ×2 (01:42→12:49)
[2020-07-29 08:18] LABS: Hematocrit (blood only) 31.4 % (42-52); Hemoglobin 11.1 g/dL (14.0-18.0); Mean Corpuscular Hemoglobin 36.2 pg (25-34); Mean Corpuscular Hgb Conc 35.4 g/dL (32-36); Mean Corpuscular Volume 102.3 fL (80-100); Mean Platelet Volume 9.8 fL (7.4-10.4); Platelet Count 353 K/uL (130-400); RDW Coefficient of Variation 15.1 % (11.5-14.5); Red Blood Count 3.07 M/uL (4.7-6.1); White Blood Count 5.21 K/uL (4.8-10.8)
[2020-07-29] MEDS: MULTI-VITAMIN INFUSION 10 ML, THIAMINE HCL 100 MG, FOLIC ACID 1 MG in SODIUM CHLORIDE 0... IV SCH (08:37)
[2020-07-29] MEDS: lisinopril 10 MG TAB PO SCH (08:37)
[2020-07-29] MEDS: DULoxetine HCL 60 MG CAP PO SCH (08:37)
[2020-07-29 08:46] LABS: BUN Creatinine Ratio 9.8 (10-20); Calcium 9.1 mg/dl (8.5-10.1); Creatinine Clr Calc Pharmacy 155.8 ml/min; Est GFR (African American) 145.3; Est GFR (Non-African American) 125.3; Potassium 3.6 mmol/L (3.5-5.1)
[2020-07-29] MEDS ORDERED: GADOBUTROL 65ML VIAL IV ONE (12:32)
[2020-07-29 12:50] VITALS: BP 131/68; PULSE 72; TEMP 98.6; O2SAT 95
--- NOTE | 2020-07-29 13:02 | Magnetic Resonance Report ---
MRI OF THE BRAIN COMBO CLINICAL HISTORY: Follow-up abnormal MRI. Seizure. COMPARISON STUDY: MRI of the brain dated 07/23/2020. TECHNIQUE: MRI of the brain was performed utilizing various T1 and T2-weighted sequences in the axial , sagittal, and coronal planes. Contrast-enhanced sequences were acquired following the administratio n of 5 cc of Gadavist. The examination is performed using the seizure protocol. FINDINGS: Brain parenchyma: Subtle signal abnormality is again suggested within the left insular cortex, the me dial left thalamus and the left hippocampus on the diffusion weighted sequences. This is unchanged fr om 07/23/2020 and may represent T2 shine through. There is increasing FLAIR signal abnormality within this region. There is no associated abnormal postcontrast enhancement in this region. A punctate foc us of enhancement in the left basal ganglia was not clearly seen previously on image #11 and is likel y vascular. There is no hemorrhage or mass effect. There is no restricted diffusion typical for acute ischemia. No enhancing mass lesion is seen on the postcontrast images. Mehta-white matter differentia tion is preserved. No extra-axial fluid collection is seen. The cerebellar tonsils are normal in conf iguration. Ventricles, sulci, and cisterns: Normal in configuration. Pituitary and sella: Unremarkable. Intracranial vasculature: Normal flow voids are maintained at the skull base. Orbits: The bony orbits are grossly intact. Orbital contents are normal in appearance. Sinuses and mastoids: Clear. Calvarium: Unremarkable. Cervical cord: Partially visualized cervical spinal cord is normal in morphology and signal intensity . IMPRESSION: 1. Signal abnormality is again seen within the left insular cortex, the medial left thalamus, in the left hippocampus on the diffusion weighted sequences, with increasing FLAIR signal abnormality throug hout these regions. This remains pathologically indeterminant, with top differential considerations i ncluding post ictal change/seizure focus versus a nonspecific cerebritis/encephalitis. Clinical corre lation will be essential. 2. There is no evidence of acute ischemia, hemorrhage, or mass effect. ACT 112: Negative or not required by law. Electronically signed by: Almas Shaffer M.D. 07/29/2020 1:01 PM
--- NOTE | 2020-07-29 14:36 | Discharge Summary ---
Date of Service July 29, 2020 Admission HPI Per Admitting Provider Jorge Coronado is a 60yo C male with history of HTN, cervical spondylosis s/p surgical intervention with hardware in place, regular EtOH use presenting by EMS after witnessed seizure. Patient somnolent after receiving benzos, history obtained through chart review and discussion with ER attending and patient's fiance at bedside. Patient with history of EtOH abuse - his fiance states he drinks appx 1-2 beers daily and may have been drinking more of late, specifically carol odessa. He has been gradually trying to cut back on his EtOH intake. Fiance states that patient has not been feeling well for the last several days. He has been complaining of diarrhea, fatigue and headache. When she came home from work this afternoon around 16:20 she found the patient minimally responsive with tonic-clonic activity, fecal incontinence. EMS was called - patient was found to be seizing and was administered Versed x 5mg IV and Ativan 2mg IV en route to ER. He was thought to have three tonic-clonic seizures in total. He had an episode of SVT and was administered Adenosine 18mg IV with resolution. Patient became apneic en route to the ER requiring bag-mask ventilation for approximately two minutes. In the ER patient was afebrile, tachycardic at 105, mildly hypertensive at 150/85 with normal respiratory rate. He was initially on 15L NRB with saturation maintained at 100% - O2 decreased to 2L NC with adequate saturation - currently 100%. Initial physical exam noted patient to be ill in appearance, awake, alert and looking around. Moaning to painful stimuli and moving his upper and lower extremities equally ER Course: NSS x 3L, Zosyn x 4.5gm, Ativan x 0.5mg, Keppra x 1gm, Folic acid x 1mg, Thiamine x 100mg Principal Diagnosis seizure Discharge Exam Constitutional WD/WN, vitals as above Respiratory normal respiratory effort, lungs clear to auscultation Cardiovascular RRR, no murmur, no edema Gastrointestinal (Abdomen) normal bowel sounds, soft, nontender, no hepatosplenomegaly Musculoskeletal no cyanosis or clubbing, extremities motor strength 5/5 Skin no rashes, warm and dry Neurologic moves all extremities and awake Psychiatric A+Ox3, euthymic affect Discharge Data Allergies Allergy/AdvReac Type Severity Reaction Status Date / Time No Known Drug Allergies Allergy Verified 07/22/20 19:29 Consultations 07/22/20 19:31 ED Decision to Admit Stat 07/23/20 12:15 Consult Neurology Routine Ordered Studies 07/22/20 18:05 CT head/brain wo con Stat 07/22/20 21:34 CT angio head w con Urgent CT angio neck with con Urgent 07/23/20 12:25 MR brain wo/w con Routine 07/28/20 14:30 US venous doppler LE RT Routine 07/29/20 08:00 MR brain wo/w con Routine Hospital Course (1) Seizure: 60yo C male presenting with witnessed tonic-clonic seizure x 3 at home as well as right sided deficit. Patient with no history of prior seizure. He does drink EtOH fairly regularly and has been trying to cut back - EtOH level <3 on admission. -CTA head and neck negative for acute - MRI brain on 07/23 with possible post-ictal signal abnormality with recommendation to repeat in a week - EEG 07/24 abnormal secondary to benzodiazepine use and potentially non localizable epileptiform abnormalities -reviewed Utox positive for midazolam (likely from ambulance) and marijuana, TSH wnl, ammonia wnl -Per Neuro: discontinued acyclovir given that he started to improve prior to first dose. -will continue keppra, and may transition to PO. His also reports poor diet, Wernicke's encephalopathy may also play a role - continue thiamine on discharge. Repeat MRI on 07/29 was stable from previous; ok to follow up on this with Dr. Che in the clinic (or with his normal neurologist Dr. Hadley Ahmadi at [facility]). Discharged on Keppra, thiamine, and folic acid. (2) Alcohol abuse: Patient with history of heavy EtoH use, per outpatient notes was drinking half a gallon of odessa per day but had cut back in June. Now drinks 1-2 beers/day and possibly has been sneaking some odessa as well. EtOH level = <3, ?withdrawal seizures. - Encouraged reduction/cessation. - Discharged with above meds. (3) Thrombocytopenia: Resolved (4) Macrocytic anemia: Secondary to alcohol intake. MCV elevated, Patient had a normal B12 level in February 2020 of 394 as well as a normal Folate of 10.67 at that time. - Follow up outpatient after reduced alcohol intake. (5) Hypokalemia: Hypokalemia Resolved (6) Elevated lactic acid level: Patient with elevated lactic acid of 7.2 on intake labs. Possibly secondary to prolonged seizure activity. He was administered aggressive IVF in the ER x 3 liters. He was hemodynamically stable - no documented hypotensive episodes. His liver studies are largely intact with no evidence of synthetic dysfunction. (7) Hypocalcemia: Replaced and resolved (8) Depression: Chronic -Continue Duloxetine 60mg po q daily (9) Hypertension: Mildly hypertensive -Continue Lisinopril 10mg po q AM -Continue to monitor (10) Parkinson disease: Chronic. Patient follows with neurology - Dr. Hadley Ahmadi at [facility]. - Continue Carbidopa-Levodopa as directed (11) Vertebral artery stenosis: Vertebral artery stenosis at C4 due to osteophytes. This is not an acute finding so will defer to outpatient follow up with vascular surgery. (12) Hematuria: Likely secondary to Lantigua catheter. Hgb stable. Patient and nursing report this is resolving. Patient also told fiance he is having some blood in his stool - likely hemorrhoids. Patient reports this has resolved today as well. Discussed discharge over the phone with patient's sushma, questions answered. She understands he will need to be assisted with any ambulation for the time being as he is still a bit unsteady on his feet. He is discharging with a roller walker Total Time Total Time Spent Total Time Spent (In Minutes): greater than 30 minutes Discharge Plan Discharge Items Patient Disposition: Home - Home Health Services Reason For Visit: SEIZURE Discharge Diagnosis: Seizure Activity: Resume your previous activity Non-emergency contact: Primary Care Provider and Neurologist Call non-emergency contact if: you have any medication questions and your symptoms worsen Follow-up/Referrals: Colin Che MD [Physician] - (Follow up with Dr. Che at his next available appointment ) [place] Vasquez DO [Primary Care Provider] - (follow up in one week ) Diet: Regular Addtl Attending Provider Instructions: (1) Seizure: You were started on levetiracetum (Keppra) for preventing seizures which you should continue. You will also need to continue taking thiamine. It is very important that you do not start drinking alcohol again. You should also abstain from marijuana. (2) Vertebral artery stenosis: Incidental finding on imaging, no immediate intervention is necessary. Please ask your primary care provider for referral to vascular surgery to follow. Home health physical and occupational therapy to evaluate and treat Pending Studies at Discharge: No Stand-Alone Forms: My [facility], Smoking Cessation Medications and DC Order Prescriptions: New levetiracetam [Keppra] 500 mg tablet 500 mg PO BID Qty: 60 RF: 1 thiamine HCl (vitamin B1) 100 mg tablet 100 mg PO DAILY Qty: 30 RF: 1 folic acid 400 mcg tablet 400 mcg PO DAILY Qty: 30 RF: 1 Continued carbidopa-levodopa [Sinemet] 25-100 mg tablet 1 tab PO DIRECTED Qty: 120 RF: 0 duloxetine [Cymbalta] 60 mg capsule,delayed release(DR/EC) 60 mg PO QAM RF: 0 lisinopril 10 mg tablet 10 mg PO QAM RF: 0 Discharge Orders: Discharge Order (Routine); Ordered 07/29/20 Ordered By: Fidelia Bhardwaj/Other Patient Handouts: Alcoholism: Myths and Facts, Alcoholism Resources, Alcoholism: Getting Help, Seizures and Epilepsy, Levetiracetam tablets Admission Data Admit Date/Time: 07/22/20 20:24 Attending Provider: Louie Vicente Admit Provider: Jennifer Cordon Primary Care Provider: [place] Vasquez Other Providers: Colin Che ; Louie Vicente Other Interventions: Discharge Summary Assessment (RN) Last Done: 07/29/20 15:17 Coding Level of Care Code D/C Day Management >30 mins Diagnoses Seizure R56.9 Alcohol abuse F10.10 Thrombocytopenia D69.6 Macrocytic anemia D53.9 Hypokalemia E87.6 Elevated lactic acid level R79.89 Hypocalcemia E83.51 Depression F32.9 Depression Type: unspecified Hypertension I10 Hypertension type: essential hypertension Parkinson disease G20 Vertebral artery stenosis I65.09 Hematuria R31.9
== END 2020-07-29 15:49 | disposition home health service (06) | DRG 101 ==
LOC: ED 18:00 → SUATTDRO 20:24 → 2S 20:24

== ENCOUNTER 2021-08-07 17:29 | Inpatient (IN) ==
[2021-08-07 18:49] LABS: Appearance Urine Clear (Clear); Bacteria Urine Automated Negative (Negative); Bilirubin Urine Negative (Negative); Blood Urine 2+ (Negative); Color Urine Yellow; Epithelial Cell Urine Auto >30 /lpf (0-5); Glucose Urine UA Negative (Negative); Ketones Urine Negative (Negative); Leukocyte Esterase Urine Negative (Negative); Nitrite Urine Negative (Negative); Protein Urine Trace (Negative); Specific Gravity Urine 1.013 (1.000-1.030); Urobilinogen Urine Negative (Negative)
[2021-08-07] MEDS ORDERED: MULTI-VITAMIN INFUSION 10 ML, THIAMINE HCL 100 MG, FOLIC ACID 1 MG in SODIUM CHLORIDE 0... IV ONE (18:51)
[2021-08-07] MEDS ORDERED: LORazepam 1 MG/2 ML VIAL IV STA (18:51)
[2021-08-07] MEDS ORDERED: THIAMINE HCL 200 MG in SODIUM CHLORIDE 0.9% 50 ML IV STA (18:51)
--- NOTE | 2021-08-07 18:55 | XRay Report ---
SINGLE VIEW CHEST CLINICAL HISTORY: Atypical chest pain. FINDINGS: An AP, portable, upright chest radiograph is compared to study dated 07/22/2020 and correla bisi with chest CT dated 05/31/2021. The examination is mild degraded by portable technique and patien t rotation. The cardiomediastinal silhouette is unremarkable noting atherosclerotic calcification o f the thoracic aorta. Chronic interstitial thickening is similar to previous. The lungs and pleural s paces are clear. No pneumothorax is seen. The skeletal structures appear osteopenic. There are healed right-sided rib fractures. Fusion hardware is noted in the lower cervical spine. IMPRESSION: No active disease in the chest. ACT 112: Negative or not required by law. Electronically signed by: Almas Shaffer M.D. 08/07/2021 6:54 PM
[2021-08-07 18:56] LABS: Basophils # (auto) 0.03 K/uL (0-0.2); Basophils % (auto) 0.2 %; Eosinophils # (auto) 0.03 K/uL (0-0.5); Eosinophils % (auto) 0.2 %; Hematocrit (blood only) 49.8 % (42-52); Hemoglobin 17.6 g/dL (14.0-18.0); Immature Granulocytes # (auto) 0.06 K/uL (0.00-0.02); Immature Granulocytes % (auto) 0.3 %; Lymphocytes # (auto) 0.84 K/uL (1.2-3.4); Lymphocytes % (auto) 4.7 %; Mean Corpuscular Hemoglobin 36.6 pg (25-34); Mean Corpuscular Hgb Conc 35.3 g/dL (32-36); Mean Corpuscular Volume 103.5 fL (80-100); Mean Platelet Volume 10.4 fL (7.4-10.4); Monocytes # (auto) 1.53 K/uL (0.11-0.59); Monocytes % (auto) 8.5 %; Neutrophils # (auto) 15.46 K/uL (1.4-6.5); Neutrophils % (auto) 86.1 %; Nucleated RBC # (auto) 0.02 K/uL (0-0); Nucleated RBC % (auto) 0.1 %; Platelet Count 255 K/uL (130-400); RDW Coefficient of Variation 17.9 % (11.5-14.5); RDW Standard Deviation 68.7 fL (36.4-46.3); Red Blood Count 4.81 M/uL (4.7-6.1); White Blood Count 17.95 K/uL (4.8-10.8)
--- NOTE | 2021-08-07 18:56 | Emergency Department Note ---
Impression & Plan Alcohol withdrawal seizure, Alcohol abuse, Leukocytosis, Hypophosphatemia ED Provider Note NAME: RIMA COLLAZO AGE: 61 SEX: M ARRIVES VIA: Ambulance INFORMANT: Patient ED PROVIDER(S): Foreign Han MD CHIEF COMPLAINT: Seizure PLAN: Disposition: Admit MEDICAL DECISION MAKING: The patient is a 61-year-old gentleman with a past medical history of alcohol abuse as well as question of a seizure disorder for which she was previously on Keppra who presents emergency department for seizure episode that the reports lasted 20 minutes prior to arrival. Upon arrival via EMS the patient was incontinent of stool and urine and confused. The patient's partner had reported that he does not "have a history of seizures" but he is "epileptic". S he reports he was taken off of his seizure medications in February and has had 2 seizures since then. He went to [facility] ED in May. The patient is a poor historian due to his condition. She concurs with what the patient says that he has resumed drinking alcohol. She reports he will drink several drinks a day and typically vodka. On arrival the patient is somnolent appearing but with eyes open and will follow commands. He appears clinically dry. He appears cachectic and unkempt. He is afebrile with heart in 100s and vital signs otherwise stable EKG without overt acute ischemia. Chest x-ray negative for acute cardiopulmonary process. WBC 17.9K nonspecific, and likely acute phase reactant in the setting of suspected alcohol withdrawal seizure. H/H and platelets within normal limits. Chemistry without metabolic acidosis. Phosphorus 1.7 with repletion provided. Electrolytes and LFTs otherwise unremarkable. Troponin 0.022, within normal limits. Lipase not elevated. UA without convincing evidence of infection. Drug screen was positive for THC. COVID-19 RNA, NAAT test was negative. CT of the head negative for acute process per preliminary stat rad report. Upon reevaluation the patient was improved appearing following IV fluid hydration with banana bag as well as additional IV thiamine and prophylactic IV Ativan. I reviewed his evaluation with the patient and his partner over the phone and both agree with plan for admission for further management. Case was discussed with Dr. Cordon, [facility] hospitalist, who will evaluate the patient for admission. Triage Nursing notes reviewed and agree them. Prior medical records reviewed Vital Signs: reviewed and remarkable for tachycardia. Differential diagnosis: Epilepsy, infection, hypoglycemia, electrolyte abnormalities, cardiac sources, intracerebral event, trauma, toxicologic, neurologic, syncope, as well as other pathologies. ER treatment provided: See below. Diagnostics interpreted by me: ECG: Normal sinus rhythm, 88 bpm, no ectopy, no overt ST elevation or d epression, QTC 486, QRS 96 Cardiac Monitoring: An order for continuous cardiac monitoring was placed and demonstrated normal sinus rhythm, 88 bpm, no ectopy. Laboratory studies: See below Imaging studies: See below STATRAD Preliminary Findings Only See Final Report For Complete Findings CT HEAD: Involutional and chronic small vessel ischemic changes. No ICH, mass-effect, or edema. No skull fracture. Sinuses and mastoid air cells are clear. Radiologist: Manjula Owens M.D. Study ready at 20:21 and initial results transmitted at 20:24 Consultation(s): Case was discussed with Dr. Cordon, [facility] hospitalist, who will evaluate the patient for admission. HPI: The patient is a 61-year-old gentleman with a past medical history of alcohol abuse as well as question of a seizure disorder for which she was previously on Keppra who presents emergency department for seizure episode that the reports lasted 20 minutes prior to arrival. Upon arrival via EMS the patient was incontinent of stool and urine and confused. The patient's partner had reported that he does not "have a history of seizures" but he is "epileptic". She reports he was taken off of his seizure medications in February an d has had 2 seizures since then. He went to [facility] ED in May. The patient is a poor historian due to his condition. She concurs with what the patient says that he has resumed drinking alcohol. She reports he will drink several drinks a day and typically vodka. ROS: See above HPI for pertinent positives & negatives. A total of 10 systems reviewed and were otherwise negative. PAST MEDICAL HISTORY:See Below PAST SURGICAL HISTORY:See Below FAMILY HISTORY:See Below SOCIAL HISTORY:See Below HOME MEDICATIONS:See Below ALLERGIES:See Below VITALS:See Below PHYSICAL EXAMINATION: GENERAL: Awake, alert, somnolent-appearing, cachectic, unkempt, in no distress HENT: Normocephalic, atraumatic. Oropharynx with dry mucous membranes. EYES: Normal conjunctiva. Sclera non-icteric. NECK: Supple. No nuchal rigidity. FROM. No JVD. RESPIRATORY: Clear to auscultation. CARDIAC: Tachycardic rate, normal rhythm. Extremities warm and well perfused. Pulses equal. ABDOMEN: Soft, non-distended. No tenderness to palpation. No rebound or guarding. No masses. RECTAL: Deferred. MUSCULOSKELETAL: Chest examination reveals no tenderness. The back is symmetrical on inspection without obvious abnormality. There is no CVA tenderness to palpation. No joint edema. LOWER EXTREMITIES: Calves are equal size bilaterally and non-tender. No edema. No discoloration. NEURO: Somnolent but awake. Follows commands. No focal sensory or motor deficits noted. SKIN: No rash or jaundice noted. Foreign Han MD Past Med/Surg History Medical History Alcohol abuse Stopped 05/09/2021, relapse 08/08/21 Cervical spondylosis Degenerative disc disease Depression GERD without esophagitis History of pancreatitis (~02/2020) Hypertension Kidney lesion Renal Cyst -CT of Abd noted 02/18/21 first describes 7 mm left renal lesion, hyperdense cyst versus solid renal neoplasm. A nonemergent dedicated renal CT scan or MRI is recommended in follow-up -Renal CT 02/19/21-7 mm left renal lesion in question appeared hyperdense to renal parenchyma on the noncontrast portion of the study and did not demonstrate significant enhancement. This lesion is felt to represent a hyperdense cyst. A 12 month follow-up study would seem prudent. -Renal CT 05/31/21-Stable 9 mm hyperdense/hemorrhagic cyst within the left kidney, There is a 6 mm hypodense lesion within the left kidney which is technically too small to characterize but favors a simple cyst. 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 Ahmadi in [place] Thrombocytopenia Vertebral artery stenosis Vertigo no medications Surgical History History of colonoscopy History of esophagogastroduodenoscopy (EGD) 10/19/20 [facility] Hx of neck surgery (05/2018) cervical fusion (C2-C3?) Full ROM S/P epidural steroid injection Status post tooth extraction Family History Aunt Parkinson disease Other No family history of adverse response to anesthesia Denies family history of Ovarian cancer Prostate cancer Myocardial infarction Breast cancer Lung cancer Colorectal cancer Social History Smoking Status: Unknown if ever smoked Tobacco Type: Cigarettes Age Started Using Tobacco: 17; packs per day: 1; Cigarettes Per Day: 20; Second Hand Exposure: No; Hx Alcohol Use: Yes Alcohol type: hard liquor Alcohol Intake Frequency Comment: fifth of vodka per week Hx Substance Use: Yes (daily - no medical card (advised per policy)) Prescribed Medications: Marijuana Last Used Substance: Hours (ago) Substance Use Type Ot her:: daily Preferred Language: Kyrgyz Communication Ability: Effective Visual Impairment: No Limitations 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 Needs Required: No Beliefs That Will Affect Care: None marital status: Single Current Living Situation: Other Current Living Situation Comment: friend, Charmaine current occupational status: disabled Feels Safe at Home: Yes Childhood Exposure to Second-Hand Smoke: Yes Diet Comment: regular caffeine: No during the past year weight has: remained stable Dental Care, Regularly: No Physical Activity Frequency: Does not Exercise Seatbelt Use: always Sunscreen Use: No Assistive Devices: None Allergies Allergies Allergy/AdvReac Type Severity Reaction Status Date / Time No Known Drug Allergies Allergy nkda Verified 08/07/21 21:24 Home Meds Home Medications Medication Instructions Recorded Confirmed cyanocobalamin (vitamin B-12) 0 mcg PO DAILY 08/07/21 08/07/21 1,000 mcg tablet (Vitamin B-12) thiamine HCl (vitamin B1) 100 mg 0 mg PO DAILY 08/07/21 08/07/21 tablet Previous Rx's Medication Instructions Recorded folic acid 400 mcg tablet 400 mcg PO DAILY #30 tab 05/24/21 sertraline 50 mg tablet 50 mg PO DAILY #30 tab 06/08/21 Results & Data (ED) Vital Signs Vital Signs - 24 hr 08/07/21 17:16 08/07/21 18:00 08/07/21 18:30 Temperature 36.8 C Temperature Source Oral Pulse Rate 88 90 100 H Pulse Rate from SpO2 Sensor 89 96 H Respiratory Rate 18 19 19 Respiratory Effort / Characteristics Non-Labored Respiratory Depth Normal Blood Pressure 118/77 114/74 122/90 Blood Pressure Mean 90 87 100 Pulse Oximetry 95 95 93 Oxygen Delivery Method Room Air Sepsis Recent Fever Within 48 Hours No Sepsis New/Unexplained Change in Mental Status N/A Sepsis Action Taken by Nursing No Action Required 08/07/21 18:45 08/07/21 19:00 08/07/21 19:15 Temperature Temperature Source Pulse Rate 86 89 86 Pulse Rate from SpO2 Sensor 91 H Respiratory Rate 18 19 18 Respiratory Effort / Characteristics Respiratory Depth Blood Pressure 127/75 139/99 153/102 H Blood Pressure Mean 92 112 119 Pulse Oximetry 95 95 Oxygen Delivery Method Sepsis Recent Fever Within 48 Hours Sepsis New/Unexplained Change in Mental Status Sepsis Action Taken by Nursing 08/07/21 19:30 08/07/21 19:45 08/07/21 20:00 Temperature Temperature Source Pulse Rate 103 H 99 H 95 H Pulse Rate from SpO2 Sensor 108 H Respiratory Rate 16 20 20 Respiratory Effort / Characteristics Respiratory Depth Blood Pressure 156/104 H 166/102 H Blood Pressure Mean 121 123 Pulse Oximetry 93 Oxygen Delivery Method Sepsis Recent Fever Within 48 Hours Sepsis New/Unexplained Change in Mental Status Sepsis Action Taken by Nursing 08/07/21 20:15 08/07/21 20:30 08/07/21 20:45 Temperature Temperature Source Pulse Rate 96 H 103 H 98 H Pulse Rate from SpO2 Sensor 95 H 98 H 96 H Respiratory Rate 20 21 19 Respiratory Effort / Characteristics Respiratory Depth Blood Pressure 149/95 H 156/97 H 143/98 H Blood Pressure Mean 113 116 113 Pulse Oximetry 99 97 99 Oxygen Delivery Method Sepsis Recent Fever Within 48 Hours Sepsis New/Unexplained Change in Mental Status Sepsis Action Taken by Nursing 08/07/21 21:00 08/07/21 21:15 08/07/21 21:30 Temperature Temperature Source Pulse Rate 101 H 100 H 97 H Pulse Rate from SpO2 Sensor Respiratory Rate 19 18 19 Respiratory Effort / Characteristics Respiratory Depth Blood Pressure 146/94 H 155/100 H Blood Pressure Mean 111 118 Pulse Oximetry Oxygen Delivery Method Sepsis Recent Fever Within 48 Hours Sepsis New/Unexplained Change in Mental Status Sepsis Action Taken by Nursing 08/07/21 21:45 08/07/21 22:00 08/07/21 22:15 Temperature Temperature Source Pulse Rate 94 H 101 H Pulse Rate from SpO2 Sensor Respiratory Rate 19 18 Respiratory Effort / Characteristics Respiratory Depth Blood Pressure 167/100 H 152/98 H 148/99 H Blood Pressure Mean 122 116 115 Pulse Oximetry 95 98 Oxygen Delivery Method Sepsis Recent Fever Within 48 Hours Sepsis New/Unexplained Change in Mental Status Sepsis Action Taken by Nursing 08/07/21 22:30 08/07/21 23:15 Temperature Temperature Source Pulse Rate 97 H Pulse Rate from SpO2 Sensor Respiratory Rate 19 Respiratory Effort / Characteristics Respiratory Depth Blood Pressure 150/96 H 139/92 Blood Pressure Mean 114 107 Pulse Oximetry 98 Oxygen Delivery Method Room Air Sepsis Recent Fever Within 48 Hours Sepsis New/Unexplained Change in Mental Status Sepsis Action Taken by Nursing Laboratory Data Attestation: I reviewed the patient's lab results. Result diagrams: 08/07/21 16:19 08/07/21 16:19 Lab Results 08/07/21 08/07/21 08/07/21 Range/Units 16:19 16:19 16:19 WBC 17.95 H (4.8-10.8) K/uL RBC 4.81 (4.7-6.1) M/uL Hgb 17.6 (14.0-18.0) g/dL Hct 49.8 (42-52) % MCV 103.5 H (80-100) fL MCH 36.6 H (25-34) pg MCHC 35.3 (32-36) g/dL RDW Std Deviation 68.7 H (36.4-46.3) fL RDW Coeff of Brianda 17.9 H (11.5-14.5) % Plt Count 255 (130-400) K/uL MPV 10.4 (7.4-10.4) fL Immature Gran % (Auto) 0.3 % Neut % (Auto) 86.1 % Lymph % (Auto) 4.7 % Fannin % (Auto) 8.5 % Eos % (Auto) 0.2 % Baso % (Auto) 0.2 % Neut # (Auto) 15.46 H (1.4-6.5) K/uL Lymph # (Auto) 0.84 L (1.2-3.4) K/uL Fannin # (Auto) 1.53 H (0.11-0.59) K/uL Eos # (Auto) 0.03 (0-0.5) K/uL Baso # (Auto) 0.03 (0-0.2) K/uL Immature Gran # (Auto) 0.06 H (0.00-0.02) K/uL Absolute Nucleated RBC 0.02 H (0-0) K/uL Nucleated RBC % (auto) 0.1 % PT 10.3 (9.0-12.0) Seconds INR 1.0 (0.9-1.1) Sodium 138 (136-145) mmol/L Potassium 4.6 (3.5-5.1) mmol/L Chloride 109 H (98-107) mmol/L Carbon Dioxide 23 (21-32) mmol/L Anion Gap 6.0 (3-11) BUN 6 L (7-18) mg/dl Creatinine 0.92 (0.6-1.4) mg/dl Est Cr Clr Drug Dosing 73.0 ml/min Est GFR ( Amer) 103.7 ml/min Est GFR (Non-Af Amer) 89.5 ml/min BUN/Creatinine Ratio 6.5 L (10-20) Glucose 163 H (70-99) mg/dl Calcium 8.8 (8.5-10.1) mg/dl Phosphorus 1.7 L (2.5-4.9) mg/dl Magnesium 2.8 H (1.8-2.4) mg/dl Total Bilirubin 0.4 (0.2-1) mg/dl AST 18 (15-37) U/L ALT 16 (12-78) Alkaline Phosphatase 87 (45-117) U/L Troponin I 0.022 (0-0.045) ng/ml Total Protein 7.1 (6.4-8.2) gm/dl Albumin 3.4 (3.4-5.0) gm/dl Globulin 3.7 (2.5-4.0) gm/dl Albumin/Globulin Ratio 0.9 (0.9-2) Lipase 92 (73-393) U/L Specimen Hemolysis Urine Color Urine Appearance (Clear) Urine pH (4.5-7.5) Ur Specific [place] (1.000-1.030) Urine Protein (Negative) Urine Glucose (UA) (Negative) Urine Ketones (Negative) Urine Blood (Negative) Urine Nitrite (Negative) Urine Bilirubin (Negative) Urine Urobilinogen (Negative) Ur Leukocyte Esterase (Negative) Urine WBC (Auto) (0-5) /hpf Urine RBC (Auto) (0-4) /hpf U Hyaline Cast (Auto) (0-5) /lpf U Epithel Cells (Auto) (0-5) /lpf Urine Bacteria (Auto) (Negative) Urine Opiates Screen (Neg) Ur Methadone, Qual (Neg) Urine Barbiturates (Neg) Ur Phencyclidine (PCP) (Neg) U Amphetamin/Meth Scrn (Neg) MDMA (Ecstasy) Screen (Neg) U Benzodiazepines Scrn (Neg) Ur Cocaine Metabolite (Neg) U Marijuana (THC) Screen (Neg) Ethyl Alcohol mg/dL (0-3) mg/dl SARS-CoV-2, RNA, NAAT (NEGATIVE) 08/07/21 08/07/21 08/07/21 Range/Units 16:19 16:19 18:51 WBC (4.8-10.8) K/uL RBC (4.7-6.1) M/uL Hgb (14.0-18.0) g/dL Hct (42-52) % MCV (80-100) fL MCH (25-34) pg MCHC (32-36) g/dL RDW Std Deviation (36.4-46.3) fL RDW Coeff of Brianda (11.5-14.5) % Plt Count (130-400) K/uL MPV (7.4-10.4) fL Immature Gran % (Auto) % Neut % (Auto) % Lymph % (Auto) % Fann[place] % (Auto) % Eos % (Auto) % Baso % (Auto) % Neut # (Auto) (1.4-6.5) K/uL Lymph # (Auto) (1.2-3.4) K/uL [place] # (Auto) (0.11-0.59) K/uL Eos # (Auto) (0-0.5) K/uL Baso # (Auto) (0-0.2) K/uL Immature Gran # (Auto) (0.00-0.02) K/uL Absolute Nucleated RBC (0-0) K/uL Nucleated RBC % (auto) % PT (9.0-12.0) Seconds INR (0.9-1.1) Sodium (136-145) mmol/L Potassium (3.5-5.1) mmol/L Chloride (98-107) mmol/L Carbon Dioxide (21-32) mmol/L Anion Gap (3-11) BUN (7-18) mg/dl Creatinine (0.6-1.4) mg/dl Est Cr Clr Drug Dosing ml/min Est GFR ( Amer) ml/min Est GFR (Non-Af Amer) ml/min BUN/Creatinine Ratio (10-20) Glucose (70-99) mg/dl Calcium (8.5-10.1) mg/dl Phosphorus (2.5-4.9) mg/dl Magnesium (1.8-2.4) mg/dl Total Bilirubin (0.2-1) mg/dl AST (15-37) U/L ALT (12-78) Alkaline Phosphatase (45-117) U/L Troponin I (0-0.045) ng/ml Total Protein (6.4-8.2) gm/dl Albumin (3.4-5.0) gm/dl Globulin (2.5-4.0) gm/dl Albumin/Globulin Ratio (0.9-2) Lipase (73-393) U/L Specimen Hemolysis Urine Color Yellow Urine Appearance Clear (Clear) Urine pH 5.0 (4.5-7.5) Ur Specific [place] 1.013 (1.000-1.030) Urine Protein Trace H (Negative) Urine Glucose (UA) Negative (Negative) Urine Ketones Negative (Negative) Urine Blood 2+ H (Negative) Urine Nitrite Negative (Negative) Urine Bilirubin Negative (Negative) Urine Urobilinogen Negative (Negative) Ur Leukocyte Esterase Negative (Negative) Urine WBC (Auto) 1-5 (0-5) /hpf Urine RBC (Auto) 5-10 H (0-4) /hpf U Hyaline Cast (Auto) 1-5 (0-5) /lpf U Epithel Cells (Auto) >30 H (0-5) /lpf Urine Bacteria (Auto) Negative (Negative) Urine Opiates Screen Neg (Neg) Ur Methadone, Qual Neg (Neg) Urine Barbiturates Neg (Neg) Ur Phencyclidine (PCP) Neg (Neg) U Amphetamin/Meth Scrn Neg (Neg) MDMA (Ecstasy) Screen Neg (Neg) U Benzodiazepines Scrn Neg (Neg) Ur Cocaine Metabolite Neg (Neg) U Marijuana (THC) Screen Pos H (Neg) Ethyl Alcohol mg/dL < 3.0 (0-3) mg/dl SARS-CoV-2, RNA, NAAT (NEGATIVE) 08/07/21 Range/Units 22:46 WBC (4.8-10.8) K/uL RBC (4.7-6.1) M/uL Hgb (14.0-18.0) g/dL Hct (42-52) % MCV (80-100) fL MCH (25-34) pg MCHC (32-36) g/dL RDW Std Deviation (36.4-46.3) fL RDW Coeff of Brianda (11.5-14.5) % Plt Count (130-400) K/uL MPV (7.4-10.4) fL Immature Gran % (Auto) % Neut % (Auto) % Lymph % (Auto) % Fannin % (Auto) % Eos % (Auto) % Baso % (Auto) % Neut # (Auto) (1.4-6.5) K/uL Lymph # (Auto) (1.2-3.4) K/uL [place] # (Auto) (0.11-0.59) K/uL Eos # (Auto) (0-0.5) K/uL Baso # (Auto) (0-0.2) K/uL Immature Gran # (Auto) (0.00-0.02) K/uL Absolute Nucleated RBC (0-0) K/uL Nucleated RBC % (auto) % PT (9.0-12.0) Seconds INR (0.9-1.1) Sodium (136-145) mmol/L Potassium (3.5-5.1) mmol/L Chloride (98-107) mmol/L Carbon Dioxide (21-32) mmol/L Anion Gap (3-11) BUN (7-18) mg/dl Creatinine (0.6-1.4) mg/dl Est Cr Clr Drug Dosing ml/min Est GFR ( Amer) ml/min Est GFR (Non-Af Amer) ml/min BUN/Creatinine Ratio (10-20) Glucose (70-99) mg/dl Calcium (8.5-10.1) mg/dl Phosphorus (2.5-4.9) mg/dl Magnesium (1.8-2.4) mg/dl Total Bilirubin (0.2-1) mg/dl AST (15-37) U/L ALT (12-78) Alkaline Phosphatase (45-117) U/L Troponin I (0-0.045) ng/ml Total Protein (6.4-8.2) gm/dl Albumin (3.4-5.0) gm/dl Globulin (2.5-4.0) gm/dl Albumin/Globulin Ratio (0.9-2) Lipase (73-393) U/L Specimen Hemolysis Urine Color Urine Appearance (Clear) Urine pH (4.5-7.5) Ur Specific [place] (1.000-1.030) Urine Protein (Negative) Urine Glucose (UA) (Negative) Urine Ketones (Negative) Urine Blood (Negative) Urine Nitrite (Negative) Urine Bilirubin (Negative) Urine Urobilinogen (Negative) Ur Leukocyte Esterase (Negative) Urine WBC (Auto) (0-5) /hpf Urine RBC (Auto) (0-4) /hpf U Hyaline Cast (Auto) (0-5) /lpf U Epithel Cells (Auto) (0-5) /lpf Urine Bacteria (Auto) (Negative) Urine Opiates Screen (Neg) Ur Methadone, Qual (Neg) Urine Barbiturates (Neg) Ur Phencyclidine (PCP) (Neg) U Amphetamin/Meth Scrn (Neg) MDMA (Ecstasy) Screen (Neg) U Benzodiazepines Scrn (Neg) Ur Cocaine Metabolite (Neg) U Marijuana (THC) Screen (Neg) Ethyl Alcohol mg/dL (0-3) mg/dl SARS-CoV-2, RNA, NAAT NEGATIVE (NEGATIVE) Administered Medications Discontinued Medications Multivitamins 10 ml/ Thiamine HCl 100 mg/ Folic Acid 1 mg/Sodium Chloride 1,011.2 mls @ 1,011.2 mls/hr IV .Q1H ONE Stop: 08/07/21 19:50 Last Infusion: 08/07/21 20:24 Dose: 0 mls/hr Documented by: [id number] Admin: 08/07/21 19:24 Dose: 1,011.2 mls/hr Documented by: [id number] Thiamine HCl 200 mg/ Sodium (Chloride) 52 mls @ 208 mls/hr IV NOW STA Stop: 08/07/21 18:52 Last Infusion: 08/07/21 19:39 Dose: 0 mls/hr Documented by: [id number] Admin: 08/07/21 19:24 Dose: 208 mls/hr Documented by: [id number] Lorazepam (Ativan) 1 mg in 2 mls @ 2 mls/min IV NOW STA Stop: 08/07/21 18:52 Last Admin: 08/07/21 19:24 Dose: 2 mls/min Documented by: [id number] Potassium Phosphate 9 mmol/ (Sodium Chloride) 253 mls @ 125 mls/hr IV 2100 ONE Stop: 08/07/21 23:01 Last Admin: 08/07/21 20:49 Dose: 125 mls/hr Documented by: [id number] Potassium Phosphate (Potassium Phos 3 Mmol/1 Ml Infusion) 9 mmol IV NOW STA Stop: 08/07/21 20:09 Last Admin: 08/07/21 22:35 Dose: Not Given Documented by: [id number] Imaging Data Radiologist's Impression: Chest X-Ray 08/07/21 18:35 SINGLE VIEW CHEST CLINICAL HISTORY: Atypical chest pain. FINDINGS: An AP, portable, upright chest radiograph is compared to study dated 07/22/2020 and correlated with chest CT dated 05/31/2021. The examination is mild degraded by portable technique and patient rotation. The cardiomediastinal silhouette is unremarkable noting atherosclerotic calcification of the thoracic aorta. Chronic interstitial thickening is similar to previous. The lungs and pleural spaces are clear. No pneumothorax is seen. The skeletal structures appear osteopenic. There are healed right-sided rib fractures. Fusion hardware is noted in the lower cervical spine. IMPRESSION: No active disease in the chest. ACT 112: Negative or not required by law. Electronically signed by: Almas Shaffer M.D. 08/07/2021 6:54 PM Discharge Plan Visit Data Chief Complaint: Seizure ED Provider: Foreign Han Discharge Problem: Alcohol withdrawal seizure, Alcohol abuse, Leukocytosis, Hypophosphatemia Forms Stand Alone Forms: My blabfeed Prescriptions Prescriptions: No Action folic acid 400 mcg tablet 400 mcg PO DAILY Qty: 30 RF: 5 sertraline 50 mg tablet 50 mg PO DAILY Qty: 30 RF: 2 thiamine HCl (vitamin B1) 100 mg Tablet 0 mg PO DAILY RF: 0 cyanocobalamin (vitamin B-12) [Vitamin B-12] 1,000 mcg Tablet 0 mcg PO DAILY RF: 0 Referrals Referrals: Albania Vasquez DO [Primary Care Provider] - Discharge Problem: Alcohol withdrawal seizure Qualifiers: Complication of substance-induced condition: with unspecified complication Qualified Code(s): F10.239 - Alcohol dependence with withdrawal, unspecified Leukocytosis Qualifiers: Leukocytosis type: unspecified Qualified Code(s): D72.829 - Elevated white blood cell count, unspecified
[2021-08-07 19:05] LABS: Prothrombin Time 10.3 Seconds (9.0-12.0)
[2021-08-07 19:16] LABS: Amphetamines+Metham, Urine Neg (Neg); Barbiturates, Urine Neg (Neg); Benzodiazepine, Urine Neg (Neg); Cocaine, Urine Neg (Neg); MDMA (Ecstacy), Urine Neg (Neg); Methadone, Urine Neg (Neg); Opiate, Urine Neg (Neg); Phencyclidine, Urine Neg (Neg)
[2021-08-07 19:18] LABS: Albumin Globulin Ratio 0.9 (0.9-2); Albumin Level 3.4 gm/dl (3.4-5.0); BUN Creatinine Ratio 6.5 (10-20); Bilirubin,Total 0.4 mg/dl (0.2-1); Calcium 8.8 mg/dl (8.5-10.1); Est GFR (African American) 103.7 ml/min; Est GFR (Non-African American) 89.5 ml/min; Globulin 3.7 gm/dl (2.5-4.0); Magnesium 2.8 mg/dl (1.8-2.4); Phosphorus 1.7 mg/dl (2.5-4.9); Potassium 4.6 mmol/L (3.5-5.1); Total Protein 7.1 gm/dl (6.4-8.2); Troponin I 0.022 ng/ml (0-0.045)
[2021-08-07] MEDS ORDERED: POTASSIUM PHOS 3 MMOL/1 ML INFUSION IV STA (20:08)
[2021-08-07] MEDS ORDERED: POTASSIUM PHOSPHATE 9 MMOL in SODIUM CHLORIDE 0.9% 250 ML IV ONE (21:00)
--- NOTE | 2021-08-07 22:51 | History & Physical Report ---
Date of Service August 07, 2021 Assessment & Plan (1) Macrocytic anemia: Plan: 61 yo M with hx seizures brought on by ETOH use, alcohol abuse, parkinson's disease admitted for new seizure. Seizure Activity - per chart review, follows with Dr. Ahmadi in [facility]. Supposedly had appointment in 07/26, records requested per HIM. - previous neuro note describing wean off keppra and initiation of lamictal if he had another seizure episode - lamictal 25mg daily initiated - neuro consulted - CT head negative. will defer MRI at this time given known hx seizures brought on by alcohol use Alcohol Abuse Relapse/Withdrawal management - drink ~1 fifth of vodka /week - ETOH negative on admission - AWSS protocol - daily IV thiamine and folate - lipase WNL - RUQ US pending for eval of hepatic disease/cirrhosis - no transaminitis Macrocytosis - not anemic at this time - MCV 103 due to alcohol use - continue to monitor Leukocytosis - WBC 17k - afebrile, normotensive, no oxygen requirement or site of infection - CXR not showing signs of aspiration pneumonitis - likely stress response secondary to seizure - trend CBC Hypophosphatemia - Phos 1.7, repleted with Kphos in ED - repeat in AM Chronic Conditions: Depression: restart sertraline Parkinson's: currently not on medication. Last on Sinemet 04/2021. DVT ppx: heparin bid FEN/GI: regular diet Code Status: Full Code Dispo: Med/Tele (2) Seizure: (3) History of pancreatitis: (4) Alcohol abuse: (5) Hypertension: (6) Parkinson disease: (7) Thrombocytopenia: History of Present Illness Primary Care Provider: [place]ia Vasquez, DO 61 yo M with PMH ETOH abuse with seizures, macrocytic anemia, pancreatitis, parkinson disease brought to ER by girlfriend? for seizure activity at home. Charmaine not at bedside at time of interview. Patient is groggy but oriented. Remembers being asleep at home, having a seizure, and then being in the hospital. Denies remembering if he hit his head or if anything else happened. Attests to smoking 1 pack of cigarettes a day, using marijuana, drinking a fifth of vodka per week. Last drink was yesterday afternoon (08/06/21). Denies any numbness, tingling, weakness, headache, blurry vision, light sensitivity. Denies taking any medications other than folate and B12. vaccinated x 1 with J&J for covid19 Allergies Allergy/AdvReac Type Severity Reaction Status Date / Time No Known Drug Allergies Allergy nkda Verified 08/07/21 21:24 Home Medications Medication Instructions Recorded Confirmed Type folic acid 400 mcg tablet 400 mcg PO DAILY #30 tab 05/24/21 08/07/21 Rx sertraline 50 mg tablet 50 mg PO DAILY #30 tab 06/08/21 08/07/21 Rx cyanocobalamin (vitamin B-12) 0 mcg PO DAILY 08/07/21 08/07/21 History 1,000 mcg tablet (Vitamin B-12) thiamine HCl (vitamin B1) 100 mg 0 mg PO DAILY 08/07/21 08/07/21 History tablet Past Med/Surg History Medical History Alcohol abuse Stopped 05/09/2021, relapse 08/08/21 Cervical spondylosis Degenerative disc disease Depression GERD without esophagitis History of pancreatitis (~02/2020) Hypertension Kidney lesion Renal Cyst -CT of Abd noted 02/18/21 first describes 7 mm left renal lesion, hyperdense cyst versus solid renal neoplasm. A nonemergent dedicated renal CT scan or MRI is recommended in follow-up -Renal CT 02/19/21-7 mm left renal lesion in question appeared hyperdense to renal parenchyma on the noncontrast portion of the study and did not demonstrate significant enhancement. This lesion is felt to represent a hyperdense cyst. A 12 month follow-up study would seem prudent. -Renal CT 05/31/21-Stable 9 mm hyperdense/hemorrhagic cyst within the left kidney, There is a 6 mm hypodense lesion within the left kidney which is technically too small to characterize but favors a simple cyst. 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 Ahmadi [place] Thrombocytopenia Vertebral artery stenosis Vertigo no medications Surgical History History of colonoscopy History of esophagogastroduodenoscopy (EGD) 10/19/20 [facility] Hx of neck surgery (05/2018) cervical fusion (C2-C3?) Full ROM S/P epidural steroid injection Status post tooth extraction Family History Aunt Parkinson disease Other No family history of adverse response to anesthesia Denies family history of Ovarian cancer Prostate cancer Myocardial infarction Breast cancer Lung cancer Colorectal cancer Social History Smoking Status: Unknown if ever smoked Tobacco Type: Cigarettes Age Started Using Tobacco: 17; packs per day: 1; Cigarettes Per Day: 20; Second Hand Exposure: No; Hx Alcohol Use: Yes Alcohol type: hard liquor Alcohol Intake Frequency Comment: fifth of vodka per week Hx Substance Use: Yes (daily - no medical card (advised per policy)) Prescribed Medications: Marijuana Last Used Substance: Hours (ago) Substance Use Type Other:: daily Preferred Language: German Communication Ability: Effective Visual Impairment: No Limitations Hearing Ability: Normal 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 Beliefs That Will Affect Care: None marital status: Single Current Living Situation: Other Current Living Situation Comment: friend, Charmaine current occupational status: disabled Feels Safe at Home: Yes Childhood Exposure to Second-Hand Smoke: Yes Diet Comment: regular caffeine: No during the past year weight has: remained stable Dental Care, Regularly: No Physical Activity Frequency: Does not Exercise Seatbelt Use: always Sunscreen Use: No Assistive Devices: None Review of Systems Review of Systems: All systems reviewed & are unremarkable except as noted in Subjective Physical Exam Physical Exam: Constitutional: thin, disheveled and unkempt appearing Eyes: EOMI, pupils equal and reactive bilaterally, no scleral icterus Cardiac: tachycardic RR, no murmurs, gallops or rubs. Normal S1, S2 Pulm: CTA BL, no wheezes, rhonchi, crackles or rubs, moving air well throughout both lungs Abd: soft, nontender, nondistended, normal bowel sounds, no rebound or guarding Extremities: 2+ peripheral pulses, no edema Neuro: slow to respond to questions but oriented. strength equal BL, no focal weakness. no changes in sensation. difficulty following instructions for dysdiadochokinesia. Results & Data Results & Data ([facility]) Vital Signs (Past 12 Hours) Vital Signs Temp Pulse Resp BP Pulse Ox 08/07/21 22:00 101 H 18 152/98 H 98 08/07/21 21:45 94 H 19 167/100 H 95 08/07/21 21:30 97 H 19 155/100 H 08/07/21 21:15 100 H 18 08/07/21 21:00 101 H 19 146/94 H 08/07/21 20:45 98 H 19 143/98 H 99 08/07/21 20:30 103 H 21 156/97 H 97 08/07/21 20:15 96 H 20 149/95 H 99 08/07/21 20:00 95 H 20 166/102 H 08/07/21 19:45 99 H 20 156/104 H 08/07/21 19:30 103 H 16 93 08/07/21 19:15 86 18 153/102 H 95 08/07/21 19:00 89 19 139/99 08/07/21 18:45 86 18 127/75 95 08/07/21 18:30 100 H 19 122/90 93 08/07/21 18:00 90 19 114/74 95 08/07/21 17:16 36.8 C 88 18 118/77 95 Laboratory Results Laboratory Results WBC 17.95 K/uL (4.8-10.8) H 08/07/21 16:19 RBC 4.81 M/uL (4.7-6.1) 08/07/21 16:19 Hgb 17.6 g/dL (14.0-18.0) 08/07/21 16:19 Hct 49.8 % (42-52) 08/07/21 16:19 MCV 103.5 fL (80-100) H 08/07/21 16:19 MCH 36.6 pg (25-34) H 08/07/21 16:19 MCHC 35.3 g/dL (32-36) 08/07/21 16:19 RDW Std Deviation 68.7 fL (36.4-46.3) H 08/07/21 16:19 RDW Coeff of Brianda 17.9 % (11.5-14.5) H 08/07/21 16:19 Plt Count 255 K/uL (130-400) 08/07/21 16:19 MPV 10.4 fL (7.4-10.4) 08/07/21 16:19 Immature Gran % (Auto) 0.3 % 08/07/21 16:19 Neut % (Auto) 86.1 % 08/07/21 16:19 Lymph % (Auto) 4.7 % 08/07/21 16:19 [place] % (Auto) 8.5 % 08/07/21 16:19 Eos % (Auto) 0.2 % 08/07/21 16:19 Baso % (Auto) 0.2 % 08/07/21 16:19 Neut # (Auto) 15.46 K/uL (1.4-6.5) H 08/07/21 16:19 Lymph # (Auto) 0.84 K/uL (1.2-3.4) L 08/07/21 16:19 [place] # (Auto) 1.53 K/uL (0.11-0.59) H 08/07/21 16:19 Eos # (Auto) 0.03 K/uL (0-0.5) 08/07/21 16:19 Baso # (Auto) 0.03 K/uL (0-0.2) 08/07/21 16:19 Immature Gran # (Auto) 0.06 K/uL (0.00-0.02) H 08/07/21 16:19 Absolute Nucleated RBC 0.02 K/uL (0-0) H 08/07/21 16:19 Nucleated RBC % (auto) 0.1 % 08/07/21 16:19 PT 10.3 Seconds (9.0-12.0) 08/07/21 16:19 INR 1.0 (0.9-1.1) 08/07/21 16:19 Sodium 138 mmol/L (136-145) 08/07/21 16:19 Potassium 4.6 mmol/L (3.5-5.1) 08/07/21 16:19 Chloride 109 mmol/L (98-107) H 08/07/21 16:19 Carbon Dioxide 23 mmol/L (21-32) 08/07/21 16:19 Anion Gap 6.0 (3-11) 08/07/21 16:19 BUN 6 mg/dl (7-18) L 08/07/21 16:19 Creatinine 0.92 mg/dl (0.6-1.4) 08/07/21 16:19 Est Cr Clr Drug Dosing 73.0 ml/min 08/07/21 16:19 Est GFR ( Amer) 103.7 ml/min 08/07/21 16:19 Est GFR (Non-Af Amer) 89.5 ml/min 08/07/21 16:19 BUN/Creatinine Ratio 6.5 (10-20) L 08/07/21 16:19 Glucose 163 mg/dl (70-99) H 08/07/21 16:19 Calcium 8.8 mg/dl (8.5-10.1) 08/07/21 16:19 Phosphorus 1.7 mg/dl (2.5-4.9) L 08/07/21 16:19 Magnesium 2.8 mg/dl (1.8-2.4) H 08/07/21 16:19 Total Bilirubin 0.4 mg/dl (0.2-1) 08/07/21 16:19 AST 18 U/L (15-37) 08/07/21 16:19 ALT 16 (12-78) 08/07/21 16:19 Alkaline Phosphatase 87 U/L (45-117) 08/07/21 16:19 Troponin I 0.022 ng/ml (0-0.045) 08/07/21 16:19 Total Protein 7.1 gm/dl (6.4-8.2) 08/07/21 16:19 Albumin 3.4 gm/dl (3.4-5.0) 08/07/21 16:19 Globulin 3.7 gm/dl (2.5-4.0) 08/07/21 16:19 Albumin/Globulin Ratio 0.9 (0.9-2) 08/07/21 16:19 Lipase 92 U/L (73-393) 08/07/21 16:19 Specimen Hemolysis 08/07/21 16:19 Urine Color Yellow 08/07/21 16:19 Urine Appearance Clear (Clear) 08/07/21 16:19 Urine pH 5.0 (4.5-7.5) 08/07/21 16:19 Ur Specific [place] 1.013 (1.000-1.030) 08/07/21 16:19 Urine Protein Trace (Negative) H 08/07/21 16:19 Urine Glucose (UA) Negative (Negative) 08/07/21 16:19 Urine Ketones Negative (Negative) 08/07/21 16:19 Urine Blood 2+ (Negative) H 08/07/21 16:19 Urine Nitrite Negative (Negative) 08/07/21 16:19 Urine Bilirubin Negative (Negative) 08/07/21 16:19 Urine Urobilinogen Negative (Negative) 08/07/21 16:19 Ur Leukocyte Esterase Negative (Negative) 08/07/21 16:19 Urine WBC (Auto) 1-5 /hpf (0-5) 08/07/21 16:19 Urine RBC (Auto) 5-10 /hpf (0-4) H 08/07/21 16:19 U Hyaline Cast (Auto) 1-5 /lpf (0-5) 08/07/21 16:19 U Epithel Cells (Auto) >30 /lpf (0-5) H 08/07/21 16:19 Urine Bacteria (Auto) Negative (Negative) 08/07/21 16:19 Urine Opiates Screen Neg (Neg) 08/07/21 16:19 Ur Methadone, Qual Neg (Neg) 08/07/21 16:19 Urine Barbiturates Neg (Neg) 08/07/21 16:19 Ur Phencyclidine (PCP) Neg (Neg) 08/07/21 16:19 U Amphetamin/Meth Scrn Neg (Neg) 08/07/21 16:19 MDMA (Ecstasy) Screen Neg (Neg) 08/07/21 16:19 U Benzodiazepines Scrn Neg (Neg) 08/07/21 16:19 Ur Cocaine Metabolite Neg (Neg) 08/07/21 16:19 U Marijuana (THC) Screen Pos (Neg) H 08/07/21 16:19 Ethyl Alcohol mg/dL < 3.0 mg/dl (0-3) 08/07/21 18:51 SARS-CoV-2, RNA, NAAT NEGATIVE (NEGATIVE) 08/07/21 22:46 Impressions Chest X-Ray 08/07/21 18:35 SINGLE VIEW CHEST CLINICAL HISTORY: Atypical chest pain. FINDINGS: An AP, portable, upright chest radiograph is compared to study dated 07/22/2020 and correlated with chest CT dated 05/31/2021. The examination is mild degraded by portable technique and patient rotation. The cardiomediastinal silhouette is unremarkable noting atherosclerotic calci fication of the thoracic aorta. Chronic interstitial thickening is similar to previous. The lungs and pleural spaces are clear. No pneumothorax is seen. The skeletal structures appear osteopenic. There are healed right-sided rib fractures. Fusion hardware is noted in the lower cervical spine. IMPRESSION: No active disease in the chest. ACT 112: Negative or not required by law. Electronically signed by: Almas Shaffer M.D. 08/07/2021 6:54 PM Supervising Physician Co-Signing Physician Notes Patient examined, chart reviewed, case discussed with Dr. Castro and I agree with her assessment and plan. Patient is a 61yo male with history of PD, EtOH use disorder and Seizures presenting with a seizure. Patient drinks EtOH, appx 1/5 liquor per week. Last drink on 08/06. He is somnolent, arousable. Answers some questions then falls back to sleep Poorly kempt, chronically ill in appearance HEENT - NC/AT, PERRL, dry MM Heart -+S1/S2, regular, no m/r/g Lungs -CTA Abd - +BS, soft, NT/ND Ext- no edema Labs and images reviewed Assessment/Plan- 61yo male presenting with seizure, ?withdrawal vs lower seizure threshold in setting of daily EtOH use. -Keppra given in ER -Initiate Lamictal 25mg daily -Encourage EtOH cessation -Continue thiamine/folate -PO4 repletion -Monitor WBC count and possible infection, aspiration? -Remainder as above Resident Activity Tracking Resident Involvement: Resident Care Provided Care Provided: Adult Hospital Medicine (1) Hypertension Hypertension type: essential hypertension Qualified Code(s): I10 - Essential (primary) hypertension
--- NOTE | 2021-08-08 03:39 | Billing Data ---
Date of Service August 07, 2021 Coding Level of Care Code 84240 Initial Inpt Care Lvl 3
[2021-08-08] MEDS ORDERED: ATIVAN IV ALCOHOL WITHDRAWL IV PRN (05:46)
[2021-08-08] MEDS ORDERED: LORazepam 1 MG/2 ML VIAL IV PRN (05:46)
[2021-08-08] MEDS ORDERED: LORazepam 2 MG/4 ML VIAL IV PRN (05:46)
[2021-08-08] MEDS ORDERED: LORazepam 3 MG/6 ML VIAL IV PRN (05:46)
--- NOTE | 2021-08-08 06:43 | CT Scan Report ---
CT head/brain wo con CLINICAL HISTORY: 61 years-old Male with ams, seizure. Acutely altered mental status with seizure li ke activity TECHNIQUE: Multiple axial CT images of the head were obtained without contrast. A dose lowering tech nique was utilized adhering to the principles of ALARA. CT DOSE: 537.48 mGy.cm COMPARISON: Brain MRI 07/29/2020 FINDINGS: No acute intracranial hemorrhage, midline shift, intracranial mass, hydrocephalus, territorial ischem ia or abnormal extra-axial collection. Age-related involutional changes. Calcifications of the falx c erebri. Minimal white matter hypodensities may reflect chronic microvascular ischemic change. The calvarium is intact. The paranasal sinuses, mastoid air cells, and middle ear cavities are clear . IMPRESSION: No acute intracranial abnormality. ACT 112: Negative or not required by law. The above report was generated using voice recognition software. It may contain grammatical, syntax o r spelling errors. Electronically signed by: Dewayne Gonzlaes M.D. 08/08/2021 6:41 AM
[2021-08-08] MEDS ORDERED: THIAMINE HCL 100 MG in SYRINGE 9 ML IV SCH (09:00)
--- NOTE | 2021-08-08 09:14 | Ultrasound Report ---
US liver HISTORY: 61 years-old Male alcohol abuse, hx steatosis acute right upper quadrant abdominal pain COMPARISON: Abdominal ultrasound and CT abdomen and pelvis studies 02/22/2020 TECHNIQUE: Multiple real-time sonographic images of the abdominal right upper quadrant were obtained assessing grayscale appearance and color flow FINDINGS: The pancreas is heterogeneous. No pancreatic mass or pancreatic ductal dilation identified. Calcifica tions are again noted within the right hepatic lobe. Increased echogenicity of the hepatic parenchyma without discrete mass or marginal nodularity. Unremarkable gallbladder without wall thickening, chol elithiasis or pericholecystic fluid. Normal common bile duct measures 4 mm. The imaged right kidney is unremarkable without hydronephrosis. IMPRESSION: 1. Hepatic steatosis. 2. Nonspecific heterogeneity of the pancreas is noted in this patient with history of prior pancreati tis. Correlate with lipase level. 3. No biliary ductal dilation. ACT 112: Negative or not required by law. The above report was generated using voice recognition software. It may contain grammatical, syntax o r spelling errors. Electronically signed by: Dewayne Gonzales M.D. 08/08/2021 9:12 AM
[2021-08-08] MEDS: FOLIC ACID 1 MG in SYRINGE 9.8 ML IV SCH (10:08)
[2021-08-08] MEDS: NICOTINE 7 MG/24 HR TDSY TD SCH (10:08)
[2021-08-08] MEDS: lamoTRIgine 25 MG TAB PO SCH (10:13)
[2021-08-08] MEDS: SERTRALINE HCL 50 MG TABLET PO SCH (10:13)
--- NOTE | 2021-08-08 10:48 | Neurology Consultation ---
Date of Consultation August 08, 2021 Assessment & Plan (1) Alcohol withdrawal seizure: (2) Alcohol abuse: (3) Seizure: Recurrent seizures occurring in a patient with a history of chronic alcoholism. Presenting with probable alcohol related or alcohol withdrawal seizure. No evidence of hemorrhage or other acute process on CT of the head. Patient has been evaluated previously at [facility] for alcohol related seizures. He has been following with Dr. Ahmadi, a neur ologist in [facility] and had discontinued Keppra this past February. He was started on lamotrigine during this hospitalization as suggested by Dr. Ahmadi. I did order this patient an up-to-date EEG. I agree with starting lamotrigine at this time although would recommend starting with 25 mg twice daily with intention to increase to 50 mg twice daily after 1 week. He will need additional follow-up with Dr. Ahmadi, for ongoing management of this issue. Another brain MRI is not necessary at this time. Patient is currently nonfocal although he does have some difficulty with delayed recall with memory testing and may be developing some alcohol-related memory loss. 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 Patient can follow-up with Dr. Ahmadi for these issues as well. History of Present Illness Reason for Consultation: Alcohol withdrawal seizure Requesting Physician: Jahaira Castro Attending Physician: Regan Gan History of Present Illness The patient is a 61-year-old male with a history of alcohol abuse and alcohol withdrawal seizures who presented to the emergency department yesterday for further evaluation and management of a 20-minute seizure that was witnessed by his spouse. The patient was incontinent and confused at the time of arrival. He is a poor historian and amnestic for the events pertaining to his recent seizure. He does follow with Dr. 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 Records indicate that his Keppra was discontinued this past February although he has had 2 subsequent seizures since that time. He continues to consume hard liquor on a daily basis. He currently denies any particular or specific neurologic symptoms. Denies headache, vision disturbance, or focal weakness. I note that I had evaluated this patient in July 2020 for probable alcohol withdrawal seizure. A brain MRI at that time had revealed several areas of subtle restricted diffusion (without corresponding abnormality on ADC map) within the left cerebral hemisphere that were most likely post ictal in etiology. An EEG at that time revealed left frontal and right temporal sharps. Patient was started on lamotrigine which had previously been suggested by Dr. Ahmadi if he were to have another seizure. A CT of the head completed yesterday was negative for hemorrhage or acute process. Allergies Allergy/AdvReac Type Severity Reaction Status Date / Time No Known Drug Allergies Allergy nkda Verified 08/07/21 21:24 Home Medications Medication Instructions Recorded Confirmed Type folic acid 400 mcg tablet 400 mcg PO DAILY #30 tab 05/24/21 08/07/21 Rx sertraline 50 mg tablet 50 mg PO DAILY #30 tab 06/08/21 08/07/21 Rx cyanocobalamin (vitamin B-12) 0 mcg PO DAILY 08/07/21 08/07/21 History 1,000 mcg tablet (Vitamin B-12) thiamine HCl (vitamin B1) 100 mg 0 mg PO DAILY 08/07/21 08/07/21 History tablet Patient History Medical History Alcohol abuse Stopped 05/09/2021, relapse 08/08/21 Cervical spondylosis Degenerative disc disease Depression GERD without esophagitis History of pancreatitis (~02/2020) Hypertension Kidney lesion Renal Cyst -CT of Abd noted 02/18/21 first describes 7 mm left renal lesion, hyperdense cyst versus solid renal neoplasm. A nonemergent dedicated renal CT scan or MRI is recommended in follow-up -Renal CT 02/19/21-7 mm left renal lesion in question appeared hyperdense to renal parenchyma on the noncontrast portion of the study and did not demonstrate significant enhancement. This lesion is felt to represent a hyperdense cyst. A 12 month follow-up study would seem prudent. -Renal CT 05/31/21-Stable 9 mm hyperdense/hemorrhagic cyst within the left kidney, There is a 6 mm hypodense lesion within the left kidney which is technically too small to characterize but favors a simple cyst. 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 Ahmadi [place] Thrombocytopenia Vertebral artery stenosis Vertigo no medications Surgical History History of colonoscopy History of esophagogastroduodenoscopy (EGD) 10/19/20 [facility] Hx of neck surgery (05/2018) cervical fusion (C2-C3?) Full ROM S/P epidural steroid injection Status post tooth extraction Family History Aunt Parkinson disease Other No family history of adverse response to anesthesia Denies family history of Ovarian cancer Prostate cancer Myocardial infarction Breast cancer Lung cancer Colorectal cancer Social History Smoking Status: Unknown if ever smoked Tobacco Type: Cigarettes Age Started Using Tobacco: 17; packs per day: 1; Cigarettes Per Day: 20; Second Hand Exposure: No; Hx Alcohol Use: Yes Alcohol type: hard liquor Alcohol Intake Frequency Comment: fifth of vodka per week Hx Substance Use: Yes (daily - no medical card (advised per policy)) Prescribed Medications: Marijuana Last Used Substance: Hours (ago) Substance Use Type Other:: daily Preferred Language: Occitan Communication Ability: Effective Visual Impairment: No Limitations Hearing Ability: Normal Pump Stitcher Required: No Beliefs That Will Affect Care: None marital status: Single Current Living Situation: Other Current Living Situation Comment: friend, Charmaine current occupational status: disabled Feels Safe at Home: Yes Childhood Exposure to Second-Hand Smoke: Yes Diet Comment: regular caffeine: No during the past year weight has: remained stable Dental Care, Regularly: No Physical Activity Frequency: Does not Exercise Seatbelt Use: always Sunscreen Use: No Assistive Devices: None Review of Systems Constitutional: no fever and no chills Eyes: no blind spots and no diplopia Ear, Nose, Mouth, Throat: no ear pain and no hearing loss Respiratory: no cough and no dyspnea Cardiovascular: no chest pain and no palpitations Gastrointestinal: no constipation and no diarrhea/loose stools Genitourinary: no urinary incontinence or no urinary urgency Musculoskeletal: no muscle weakness and no muscle atrophy Integumentary: no rash and no lesions Neurologic: as per Subjective / HPI Psychiatric: no behavioral changes, no depression, no abnormal sleep pattern and no anxiety Hematologic / Lymphatic: no easy bruising and no lymphadenopathy Exam (Neuro) Constitutional: well developed and well nourished; no acute distress Eyes: normal visual garcia by confrontation, PERRL, normal accommodation and EOM intact bilaterally; no fundoscopic abnormality, no nystagmus and no papilledema Cardiovascular: Vessels: normal carotid upstroke; no carotid bruit Neurologic: Oriented to:: Person, Place and Time Memory: Remote Intact; negative Short Term Intact Attention: Span Intact and Concentration Intact Language: Naming Objects and Repeating Phrases Speech Fluency: negative Dysarthria Speech Aphasia: negative Aphasia Fund of Knowledge: Current Events, Past History and Vocabulary Cranial Nerves: Normal II (Visual garcia full to confrontation, visual acuity normal), III, IV, (Pupils equal round reactive to light and accommodation, eye movements normal), V (Facial sensation intact), VII (There is no facial droop or weakness), VIII (Hearing intact), IX, X (Palate elevates to midline), XI (Shoulder shrug intact) and XII (Tongue protrudes to midline) Motor Strength: Normal Lower Extremities and Normal Upper Extremities; negative Pronator Drift Motor Tone: Normal Lower Extremities and Normal Upper Extremities Muscle Bulk/Involuntary Movements: No Involuntary Movements; negative Muscle Atrophy Sensation: Light Touch Intact, Pain/Temperature Intact, Vibration Intact and Proprioception Intact Coordination: Normal; negative Limited Balance, Dysdiadochokinesia, Finger-Nose Abnormal or Heel-Petersen Abnormal Deep Tendon Reflexes: Rt Triceps: 2+, Lt Triceps: 2+, Rt Biceps: 2+, Lt Biceps: 2+, Rt Brachioradialis: 2+, Lt Brachioradialis: 2+, Rt Patellar: 2+, Lt Patellar: 2+, Rt Ankle: 2+ and Lt Ankle: 2+ Special Tests: negative Babinski Present Gait: Normal Station and Gait Details: Patient did exhibit some difficulty with short-term memory testing, 0 out of 3 with delayed recall although was able to correctly recall these objects with cueing. Results & Data ([facility]) Vital Signs (Past 12 Hours) Vital Signs Pulse Pulse Resp BP BP Pulse Ox Pulse Ox 08/08/21 07:01 78 17 144/96 H 96 96 08/08/21 06:00 82 17 141/93 H 98 08/08/21 05:45 82 18 144/95 H 96 08/08/21 05:15 97 H 20 146/97 H 96 08/08/21 04:45 83 19 136/99 96 08/08/21 04:30 83 27 H 146/93 H 96 08/08/21 04:15 86 18 152/97 H 97 08/08/21 03:45 92 H 13 157/93 H 98 08/08/21 02:30 96 H 15 148/96 H 97 08/08/21 01:30 96 H 19 147/97 H 97 08/08/21 01:00 96 H 18 156/98 H 98 08/08/21 00:45 98 H 19 148/96 H 98 08/08/21 00:15 96 H 21 144/91 H 96 08/08/21 00:00 94 H 20 146/92 H 97 08/07/21 23:45 96 H 18 147/99 H 97 08/07/21 23:15 97 H 19 139/92 98 08/07/21 22:30 150/96 H Laboratory Results WBC 17.95, hemoglobin 17.6, hematocrit 49.8, platelet count 255, MCV 103.5, sodium 138, potassium 4.6, BUN 6, creatinine 0.92, glucose 163, calcium 8.8, magnesium 2.8, AST 18, ALT 16, troponin 0 0.022, urine drug screen positive for marijuana. Ethyl alcohol level less than 3.0. Diagnostic Findings CT of the head negative for hemorrhage or acute process. There is age-related atrophy and mild chronic microvascular ischemic change. I reviewed the images as well as the radiologist's interpretation of this test. I also reviewed patient's previous brain MRI from July 2020 which revealed subtle signal abnormalities on diffusion-weighted imaging involving the left insular cortex, left medial thalamus, and left hippocampus, without corresponding signal abnormality on ADC mapping. Findings likely postictal at that time. Electrocardiogram completed yesterday revealed a normal sinus rhythm, prolonged QT interval, 88 bpm. Coding Level of Care Code 38091 Initial Inpt Care Lvl 3 Diagnoses Alcohol withdrawal seizure F10.239; R56.9 Complication of substance-induced condition: with unspecified complication Alcohol abuse F10.10 Seizure R56.9 (1) Alcohol withdrawal seizure Complication of substance-induced condition: with unspecified complication Qualified Code(s): F10.239 - Alcohol dependence with withdrawal, unspecified; R56.9 - Unspecified convulsions
--- NOTE | 2021-08-08 12:04 | Hospitalist Progress Note ---
Date of Service August 08, 2021 Assessment & Plan (1) Alcohol withdrawal seizure: Plan: prior history of seizures, follows with Dr Ahmadi in [place]. some of the seizures have been known to be 2nd to etoh withdrawal. others - not due to etoh? seizure disorder? despite keppra 500 BID (questionable compliance, of course) he presents with seizure no true seizure spike on EEG but focal slowing left temporal/parietal region Dr Che has seen in consult - advises d/c of keppra, change to lamictal 25mg BID x 1 week, then 50mg BID after that will need f/u with Dr Ahmadi post-discharge cont seizure precautions and close observation (2) Alcohol abuse: Plan: at high risk of withdrawal etoh withdrawal protocol increase thiamine to 200mg BID cont folate supplementation (3) Leukocytosis: Plan: 2nd to stress of seizure? no infectious etiology seen thus far repeat cbc in am (4) Thrombocytopenia: Plan: history of none seen this admission (5) Macrocytic anemia: Plan: previous folate level low - replace IV previous B12 level low-normal - replace PO previous TSH abnormal - recheck am repeat cbc am (6) Depression: Plan: cont SSRI lamictal can help with mood as well Plan: PT, OT evals attempted to contact pt's family as listed in chart - unable to speak to them directly left message on voicemail Admission and Anticipated Discharge Date Admission Date: August 07, 2021 Subjective patient w/o complaints during the visit except fatigue he was sleeping initially - awoke easily to name being called per staff - no seizures patient ate "ok" this am for breakfast patient a bit confused during the visit by report tele wnl Review of Systems Review of Systems: gen - fatigue cv - no chest pain pulm - no cough/congestion GI - no pain, nausea, emesis Physical Exam Physical Exam: gen - thin, nad mouth - MMM neck - no JVD heart - RRR, s1 s2 lungs - CTA b/l abd - soft NT ND BS+ ext - no edema neuro - strength 5/5 x 4 exts psych - flat affect; oriented to person and place only Results & Data Results & [facility] ([facility]) Vital Signs (Past 12 Hours) Vital Signs Pulse Pulse Resp BP BP Pulse Ox Pulse Ox 08/08/21 07:01 78 17 144/96 H 96 96 08/08/21 06:00 82 17 141/93 H 98 08/08/21 05:45 82 18 144/95 H 96 08/08/21 05:15 97 H 20 146/97 H 96 08/08/21 04:45 83 19 136/99 96 08/08/21 04:30 83 27 H 146/93 H 96 08/08/21 04:15 86 18 152/97 H 97 08/08/21 03:45 92 H 13 157/93 H 98 08/08/21 02:30 96 H 15 148/96 H 97 08/08/21 01:30 96 H 19 147/97 H 97 08/08/21 01:00 96 H 18 156/98 H 98 08/08/21 00:45 98 H 19 148/96 H 98 08/08/21 00:15 96 H 21 144/91 H 96 Diagnostic Findings EEG - Borderline abnormal awake/drowsy EEG with evidence of mild generalized and left temporal/left parietal slowing. No epileptiform abnormalities. PG Care Time/CCT Total # of Minutes Spent Total Time Spent with Patient: Total time spent is greater than 50% in coordination of care (as documented) at patient's floor/unit and/or counseling patient: Coding Level of Care Code 13097 Subseq Hosp Care Lvl 2 Diagnoses Alcohol withdrawal seizure F10.239; R56.9 Complication of substance-induced condition: with unspecified complication Alcohol abuse F10.10 Leukocytosis D72.829 Leukocytosis type: unspecified Thrombocytopenia D69.6 Macrocytic anemia D53.9 Depression F32.9 Depression Type: unspecified (1) Alcohol withdrawal seizure Complication of substance-induced condition: with unspecified complication Qualified Code(s): F10.239 - Alcohol dependence with withdrawal, unspecified; R56.9 - Unspecified convulsions (2) Leukocytosis Leukocytosis type: unspecified Qualified Code(s): D72.829 - Elevated white blood cell count, unspecified (3) Depression Depression Type: unspecified Qualified Code(s): F32.9 - Major depressive disorder, single episode, unspecified
--- NOTE | 2021-08-08 13:08 | Electrocardiogram Report ---
Test Reason : Blood Pressure : / mmHG Vent. Rate : 088 BPM Atrial Rate : 088 BPM P-R Int : 138 ms QRS Dur : 096 ms QT Int : 402 ms P-R-T Axes : 081 076 076 degrees QTc Int : 486 ms Normal sinus rhythm Prolonged QT Abnormal ECG When compared with ECG of 22-JUL-2020 18:06, T wave inversion no longer evident in Inferior leads Confirmed by Eduardo Louis ([id number]) on 08/08/2021 1:07:41 PM Referred By: REFERRED SELF Confirmed By:Eduardo Louis
[2021-08-08] MEDS: THIAMINE HCL 200 MG in SODIUM CHLORIDE 0.9% 50 ML IV SCH ×2 (15:59→22:26)
--- NOTE | 2021-08-08 16:18 | Electroencephalogram ---
EEG Procedure Note Date of Service August 08, 2021 Start / End Times Start Time: 12:04 PM End Time: 12:24 PM Referring Physician Colin Che MD History Alcohol abuse, seizures Home Medication List Medication Instructions Recorded Confirmed Type folic acid 400 mcg tablet 400 mcg PO DAILY #30 tab 05/24/21 08/07/21 Rx sertraline 50 mg tablet 50 mg PO DAILY #30 tab 06/08/21 08/07/21 Rx cyanocobalamin (vitamin B-12) 0 mcg PO DAILY 08/07/21 08/07/21 History 1,000 mcg tablet (Vitamin B-12) thiamine HCl (vitamin B1) 100 mg 0 mg PO DAILY 08/07/21 08/07/21 History tablet Inpatient Medication List Folic Acid 1 mg/ Syringe 10 mls @ 5 mls/min IV QAM [facility] Stop: 09/07/21 08:59 Last Admin: 08/08/21 10:08 Dose: 5 mls/min Documented by: [id number] Thiamine HCl 200 mg/ Sodium (Chloride) 52 mls @ 2 mls/min IV TID [facility] Stop: 09/07/21 13:59 Last Admin: 08/08/21 15:59 Dose: 2 mls/min Documented by: [id number] Lamotrigine (Lamotrigine 25 Mg Tab) 25 mg PO QAM [facility] Stop: 09/07/21 08:59 Last Admin: 08/08/21 10:13 Dose: 25 mg Documented by: [id number] Nicotine (Nicotine 7 Mg/24 Hr Tdsy) 7 mg TD QAM [facility] Stop: 09/07/21 08:59 Last Admin: 08/08/21 10:08 Dose: 7 mg Documented by: [id number] Sertraline HCl (Sertraline Hcl 50 Mg Tablet) 50 mg PO DAILY [facility] Stop: 09/07/21 08:59 Last Admin: 08/08/21 10:13 Dose: 50 mg Documented by: [id number] Discontinued Medications Multivitamins 10 ml/ Thiamine HCl 100 mg/ Folic Acid 1 mg/Sodium Chloride 1,011.2 mls @ 1,011.2 mls/hr IV .Q1H ONE Stop: 08/07/21 19:50 Last Infusion: 08/07/21 20:24 Dose: 0 mls/hr Documented by: [id number] Admin: 08/07/21 19:24 Dose: 1,011.2 mls/hr Documented by: [id number] Thiamine HCl 200 mg/ Sodium (Chloride) 52 mls @ 208 mls/hr IV NOW STA Stop: 08/07/21 18:52 Last Infusion: 08/07/21 19:39 Dose: 0 mls/hr Documented by: [id number] Admin: 08/07/21 19:24 Dose: 208 mls/hr Documented by: [id number] Lorazepam (Ativan) 1 mg in 2 mls @ 2 mls/min IV NOW STA Stop: 08/07/21 18:52 Last Admin: 08/07/21 19:24 Dose: 2 mls/min Documented by: [id number] Potassium Phosphate 9 mmol/ (Sodium Chloride) 253 mls @ 125 mls/hr IV 2100 ONE Stop: 08/07/21 23:01 Last Infusion: 08/07/21 23:00 Dose: 0 mls/hr Documented by: [id number] Admin: 08/07/21 20:49 Dose: 125 mls/hr Documented by: [id number] Thiamine HCl 100 mg/ Syringe 10 mls @ 2 mls/min IV QAM [facility] Stop: 09/07/21 08:59 Last Admin: 08/08/21 10:08 Dose: 2 mls/min Documented by: [id number] Potassium Phosphate (Potassium Phos 3 Mmol/1 Ml Infusion) 9 mmol IV NOW STA Stop: 08/07/21 20:09 Last Admin: 08/07/21 22:35 Dose: Not Given Documented by: [id number] Description This is a 21 electrode EEG with a single channel dedicated to limited EKG. The electrodes were placed in accordance with the International 10-20 system. The background rhythm consists of a mix of 10 Hz alpha and 6 Hz theta activity. There is a symmetric frontal beta rhythm. There is intermittent left temporal and left parietal theta slowing, moderate amplitude, about 5 to 6 Hz. There are no epileptiform discharges. Interpretation Borderline abnormal awake/drowsy EEG with evidence of mild generalized and left temporal/left parietal slowing. No epileptiform abnormalities. Please see today's neurology consult for further details. [facility] EEG Procedure Codes Indication for Procedure (1) Alcohol withdrawal seizure: Neurology Neurology: 21895 EEG include record awake & drowsy
--- NOTE | 2021-08-08 16:31 | Electroencephalogram ---
EEG Procedure Note Date of Service August 08, 2021 Start / End Times Start Time: 8:47 AM End Time: 9:[address] Colin Ricadro History Isolated seizure episode last Sunday, no history of seizure disorder. Home Medication List Medication Instructions Recorded Confirmed Type folic acid 400 mcg tablet 400 mcg PO DAILY #30 tab 05/24/21 08/07/21 Rx sertraline 50 mg tablet 50 mg PO DAILY #30 tab 06/08/21 08/07/21 Rx cyanocobalamin (vitamin B-12) 0 mcg PO DAILY 08/07/21 08/07/21 History 1,000 mcg tablet (Vitamin B-12) thiamine HCl (vitamin B1) 100 mg 0 mg PO DAILY 08/07/21 08/07/21 History tablet Inpatient Medication List Folic Acid 1 mg/ Syringe 10 mls @ 5 mls/min IV QAM [facility] Stop: 09/07/21 08:59 Last Admin: 08/08/21 10:08 Dose: 5 mls/min Documented by: [id number] Thiamine HCl 200 mg/ Sodium (Chloride) 52 mls @ 2 mls/min IV TID [facility] Stop: 09/07/21 13:59 Last Admin: 08/08/21 15:59 Dose: 2 mls/min Documented by: [id number] Lamotrigine (Lamotrigine 25 Mg Tab) 25 mg PO QAM [facility] Stop: 09/07/21 08:59 Last Admin: 08/08/21 10:13 Dose: 25 mg Documented by: [id number] Nicotine (Nicotine 7 Mg/24 Hr Tdsy) 7 mg TD QAM [facility] Stop: 09/07/21 08:59 Last Admin: 08/08/21 10:08 Dose: 7 mg Documented by: [id number] Sertraline HCl (Sertraline Hcl 50 Mg Tablet) 50 mg PO DAILY [facility] Stop: 09/07/21 08:59 Last Admin: 08/08/21 10:13 Dose: 50 mg Documented by: [id number] Discontinued Medications Multivitamins 10 ml/ Thiamine HCl 100 mg/ Folic Acid 1 mg/Sodium Chloride 1,011.2 mls @ 1,011.2 mls/hr IV .Q1H ONE Stop: 08/07/21 19:50 Last Infusion: 08/07/21 20:24 Dose: 0 mls/hr Documented by: [id number] Admin: 08/07/21 19:24 Dose: 1,011.2 mls/hr Documented by: [id number] Thiamine HCl 200 mg/ Sodium (Chloride) 52 mls @ 208 mls/hr IV NOW STA Stop: 08/07/21 18:52 Last Infusion: 08/07/21 19:39 Dose: 0 mls/hr Documented by: [id number] Admin: 08/07/21 19:24 Dose: 208 mls/hr Documented by: [id number] Lorazepam (Ativan) 1 mg in 2 mls @ 2 mls/min IV NOW STA Stop: 08/07/21 18:52 Last Admin: 08/07/21 19:24 Dose: 2 mls/min Documented by: [id number] Potassium Phosphate 9 mmol/ (Sodium Chloride) 253 mls @ 125 mls/hr IV 2100 ONE Stop: 08/07/21 23:01 Last Infusion: 08/07/21 23:00 Dose: 0 mls/hr Documented by: [id number] Admin: 08/07/21 20:49 Dose: 125 mls/hr Documented by: [id number] Thiamine HCl 100 mg/ Syringe 10 mls @ 2 mls/min IV QAM [facility] Stop: 09/07/21 08:59 Last Admin: 08/08/21 10:08 Dose: 2 mls/min Documented by: [id number] Potassium Phosphate (Potassium Phos 3 Mmol/1 Ml Infusion) 9 mmol IV NOW STA Stop: 08/07/21 20:09 Last Admin: 08/07/21 22:35 Dose: Not Given Documented by: [id number] Description This is a 21 electrode EEG with a single channel dedicated to limited EKG. The electrodes were placed in accordance with the International 10-20 system. There is a posterior dominant rhythm of 10 Hz which is symmetrically distributed and attenuates with eye opening. There is a normal anterior to posterior organization. Photic stimulation is unremarkable at multiple frequencies. There is no photic driving response. There are intermittent left vertex sharps and associated moderate amplitude 6 Hz slowing. There is a symmetric frontal beta rhythm. Hyperventilation is unremarkable. There are no changes suggestive of sleep such as vertex waves, K complexes, or sleep spindles. Interpretation Borderline abnormal awake/drowsy EEG with focal slowing and sharps localizing to the left central area. Further clinical and imaging correlation recommended.
[2021-08-09] MEDS: SERTRALINE HCL 50 MG TABLET PO SCH (07:53)
[2021-08-09] MEDS: lamoTRIgine 25 MG TAB PO SCH ×3 (07:53→21:06)
[2021-08-09] MEDS: NICOTINE 7 MG/24 HR TDSY TD SCH (07:53)
[2021-08-09 08:41] LABS: Basophils # (auto) 0.04 K/uL (0-0.2); Basophils % (auto) 0.3 %; Eosinophils # (auto) 0.06 K/uL (0-0.5); Eosinophils % (auto) 0.5 %; Hematocrit (blood only) 46.8 % (42-52); Immature Granulocytes # (auto) 0.03 K/uL (0.00-0.02); Immature Granulocytes % (auto) 0.2 %; Lymphocytes # (auto) 2.01 K/uL (1.2-3.4); Lymphocytes % (auto) 15.6 %; Mean Corpuscular Hemoglobin 36.1 pg (25-34); Mean Corpuscular Hgb Conc 34.2 g/dL (32-36); Mean Corpuscular Volume 105.6 fL (80-100); Mean Platelet Volume 10.3 fL (7.4-10.4); Monocytes # (auto) 1.67 K/uL (0.11-0.59); Monocytes % (auto) 12.9 %; Neutrophils # (auto) 9.09 K/uL (1.4-6.5); Neutrophils % (auto) 70.5 %; Platelet Count 232 K/uL (130-400); RDW Coefficient of Variation 18.5 % (11.5-14.5); RDW Standard Deviation 71.5 fL (36.4-46.3); Red Blood Count 4.43 M/uL (4.7-6.1)
[2021-08-09 09:05] LABS: Albumin Level 3.3 gm/dl (3.4-5.0); BUN Creatinine Ratio 15.3 (10-20); Bilirubin Direct 0.5 mg/dl (0-0.2); Calcium 8.8 mg/dl (8.5-10.1); Creatinine Clr Calc Pharmacy 90.7 ml/min; Est GFR (African American) 115.4 ml/min; Est GFR (Non-African American) 99.6 ml/min; Potassium 3.4 mmol/L (3.5-5.1)
[2021-08-09 09:20] LABS: Globulin 3.3 gm/dl (2.5-4.0); Phosphorus 2.8 mg/dl (2.5-4.9); Thyroid Stimulating Hormone 1.33 uIu/ml (0.300-4.500); Total Protein 6.6 gm/dl (6.4-8.2)
[2021-08-09] MEDS ORDERED: POTASSIUM CHLORIDE CRTAB 20 MEQ TABCR PO STA (09:29)
[2021-08-09 09:54] LABS: Bilirubin,Total 1.7 mg/dl (0.2-1)
[2021-08-09] MEDS: CYANOCOBALAMIN 500 MCG TABLET (VITAMIN B-12) PO SCH (10:57)
[2021-08-09] MEDS: FOLIC ACID 1 MG in SYRINGE 9.8 ML IV SCH (10:58)
[2021-08-09] MEDS: THIAMINE HCL 200 MG in SODIUM CHLORIDE 0.9% 50 ML IV SCH ×3 (11:03→21:06)
--- NOTE | 2021-08-09 18:01 | Hospitalist Progress Note ---
Date of Service August 09, 2021 Assessment & Plan (1) Alcohol withdrawal seizure: Plan: prior history of seizures, follows with Dr Ahmadi in [place]. some of the seizures have been known to be 2nd to etoh withdrawal. despite keppra 500 BID (questionable compliance, of course) he presented with seizure no true seizure spike on EEG but focal slowing left temporal/parietal region seen Dr Che recommended d/c of keppra, change to lamictal 25mg BID x 1 week, then 5 0mg BID after that will need f/u with Dr Ahmadi post-discharge cont seizure precautions and close observation no signs/symptoms of etoh withdrawal (2) Alcohol abuse: Plan: at high risk of withdrawal but none seen thus far etoh withdrawal protocol cont thiamine 200mg BID cont folate supplementation cont b12 supplementation (3) Leukocytosis: Plan: 2nd to stress of seizure? no infectious etiology seen thus far repeat cbc today improved (4) Thrombocytopenia: Plan: history of none seen this admission (5) Macrocytic anemia: Plan: previous folate level low - replace IV previous B12 level low-normal - replace PO previous TSH abnormal - recheck this am wnl (6) Depression: Plan: cont SSRI lamictal can help with mood as well (7) Abdominal pain: Plan: right-sided chronic intermittent renal CT in 05/2021 with no acute pathology will obtain KUB x-ray - assess fecal loading, etc chronic pancreatitis ?? (previous CT with pancreatic head calcifications) consider trial creon Plan: PT, OT kasi completed - can d/c home with significant other anticipate d/c home tomorrow significant other updated at bedside today Admission and Anticipated Discharge Date Admission Date: August 07, 2021 Subjective tele wnl overnight no seizures per staff pt resting in bed during the visit c/o mild frontal headache also c/o right sided abd discomfort - comes/goes - present "long time" eating doesn't bother it denies constipation records show he had a renal CT in May - no acute pathology significant other at bedside both patient and significant other desire 1 more night in the hospital pt denies symptoms of etoh withdrawal Review of Systems Review of Systems: gen - no fevers/chills cv - no orthopnea, no chest pain pulm - no cough GI - abd pain, right-sided - see HPI; no N/V Physical Exam Physical Exam: gen - thin, nad, flat affect mouth - MMM neck - no JVD heart - RRR, s1 s2, no murmur lungs - CTA b/l abd - soft NT ND BS+; no flank tenderness; no masses back - no tenderness to palpation paraspinal regions ext - no edema, pulses 1+ b/l psych - flat affect; oriented x 3 Results & Data Results & Data ([facility]) Vital Signs (Past 12 Hours) Vital Signs Temp Pulse Pulse Resp BP Pulse Ox 08/09/21 15:19 36.8 C 75 18 154/75 H 98 08/09/21 14:17 83 08/09/21 10:45 36.8 C 91 H 18 164/82 H 98 08/09/21 06:25 80 08/09/21 06:20 36.9 C 64 16 145/67 H 95 Laboratory Results Laboratory Results - last 24 hr 08/09/21 08/09/21 08/09/21 08:16 08:16 08:16 WBC 12.90 H Cancelled RBC 4.43 L Cancelled Hgb 16.0 Cancelled Hct 46.8 Cancelled MCV 105.6 H Cancelled MCH 36.1 H Cancelled MCHC 34.2 Cancelled RDW Std Deviation 71.5 H Cancelled RDW Coeff of Brianda 18.5 H Cancelled Plt Count 232 Cancelled MPV 10.3 Cancelled Immature Gran % (Auto) 0.2 Neut % (Auto) 70.5 Lymph % (Auto) 15.6 Caswell % (Auto) 12.9 Eos % (Auto) 0.5 Baso % (Auto) 0.3 Neut # (Auto) 9.09 H Lymph # (Auto) 2.01 Caswell # (Auto) 1.67 H Eos # (Auto) 0.06 Baso # (Auto) 0.04 Immature Gran # (Auto) 0.03 H Absolute Nucleated RBC Cancelled Nucleated RBC % (auto) Cancelled Platelet Estimate Cancelled Sodium 141 Potassium 3.4 L D Chloride 109 H Carbon Dioxide 23 Anion Gap 9.0 BUN 11 D Creatinine 0.74 Est Cr Clr Drug Dosing 90.7 Est GFR ( Amer) 115.4 Est GFR (Non-Af Amer) 99.6 BUN/Creatinine Ratio 15.3 Glucose 125 H Calcium 8.8 Phosphorus 2.8 D Magnesium 2.0 Total Bilirubin 1.7 H D Direct Bilirubin 0.5 H AST 26 ALT 16 Alkaline Phosphatase 74 Total Protein 6.6 Albumin 3.3 L Globulin 3.3 Albumin/Globulin Ratio 1.0 TSH 1.330 PG Care Time/CCT Total # of Minutes Spent Total Time Spent with Patient: Total time spent is greater than 50% in coordination of care (as documented) at patient's floor/unit and/or counseling patient: Coding Level of Care Code 58074 Subseq Hosp Care Lvl 2 Diagnoses Alcohol withdrawal seizure F10.239; R56.9 Complication of substance-induced condition: with unspecified complication Alcohol abuse F10.10 Leukocytosis D72.829 Leukocytosis type: unspecified Thrombocytopenia D69.6 Macrocytic anemia D53.9 Depression F32.9 Depression Type: unspecified Abdominal pain R10.9 (1) Depression Depression Type: unspecified Qualified Code(s): F32.9 - Major depressive disorder, single episode, unspecified (2) Leukocytosis Leukocytosis type: unspecified Qualified Code(s): D72.829 - Elevated white blood cell count, unspecified (3) Alcohol withdrawal seizure Complication of substance-induced condition: with unspecified complication Qualified Code(s): F10.239 - Alcohol dependence with withdrawal, unspecified; R56.9 - Unspecified convulsions
--- NOTE | 2021-08-09 18:56 | XRay Report ---
KUB HISTORY: Subacute right-sided abdominal pain with possible constipation right sided abd pain; eval c onstipation, stones COMPARISON: CT abdomen and pelvis 02/22/2020 FINDINGS: Nonobstructive bowel gas pattern. Stool volume is mild and within normal limits. Phlebolith s of the right hemipelvis redemonstrated. No renal calculi. No ureteral calculi. No pneumoperitoneum or pneumatosis. Mild degenerative changes of the spine, pelvis and hips. No fracture. IMPRESSION: 1. Nonobstructive bowel gas pattern. 2. No renal or ureteral calculi identified. ACT 112: Negative or not required by law. The above report was generated using voice recognition software. It may contain grammatical, syntax o r spelling errors. Electronically signed by: Dewayne Gonzales M.D. 08/09/2021 6:55 PM
[2021-08-10 07:32] LABS: Marijuana Quant, GCMS Urine 171 ng/mL (<5)
[2021-08-10] MEDS: FOLIC ACID 1 MG in SYRINGE 9.8 ML IV SCH (07:33)
[2021-08-10] MEDS: THIAMINE HCL 200 MG in SODIUM CHLORIDE 0.9% 50 ML IV SCH ×2 (07:33→13:26)
[2021-08-10] MEDS: CYANOCOBALAMIN 500 MCG TABLET (VITAMIN B-12) PO SCH (07:39)
[2021-08-10] MEDS: lamoTRIgine 25 MG TAB PO SCH (07:39)
[2021-08-10] MEDS: NICOTINE 7 MG/24 HR TDSY TD SCH (07:39)
[2021-08-10] MEDS: SERTRALINE HCL 50 MG TABLET PO SCH (07:40)
[2021-08-10 07:56] LABS: BUN Creatinine Ratio 14.7 (10-20); Calcium 8.7 mg/dl (8.5-10.1); Creatinine Clr Calc Pharmacy 131.7 ml/min; Est GFR (African American) 134.5 ml/min; Potassium 3.5 mmol/L (3.5-5.1)
--- NOTE | 2021-08-10 13:06 | Discharge Summary ---
Date of Service date of admission - August 07, 2021 date of discharge - August 10, 2021 Admission HPI Per Admitting Provider 61 yo M with PMH ETOH abuse with seizures, macrocytic anemia, pancreatitis, parkinson disease brought to ER by his significant other for seizure activity at home. His significant other Charmaine was not at bedside at time of interview by the admitting provider, however. Patient is groggy but oriented. Remembers being asleep at home, having a seizure, and then being in the hospital. Denies remembering if he hit his head or if anything else happened. Attests to smoking 1 pack of cigarettes a day, using marijuana, drinking a fifth of vodka per week. Last drink was yesterday afternoon (08/06/21). Denies any numbness, tingling, weakness, headache, blurry vision, light sensitivity. Denies taking any medications other than folate and B12. vaccinated x 1 with J&J for covid19 Principal Diagnosis Seizure Alcohol Abuse Mood disorder Discharge Exam gen - thin, nad, flat affect mouth - MMM neck - no JVD heart - RRR, s1 s2, no murmur lungs - CTA b/l abd - soft NT ND BS+; no flank tenderness; no masses back - no tenderness to palpation paraspinal regions ext - no edema, pulses 1+ b/l psych - flat affect; oriented x 3 Discharge Data Allergies Allergy/AdvReac Type Severity Reaction Status Date / Time No Known Drug Allergies Allergy nkda Verified 08/07/21 21:24 Consultations [facility] PT, OT Procedures Performed EEG - Description This is a 21 electrode EEG with a single channel dedicated to limited EKG. The electrodes were placed in accordance with the International 10-20 system. The background rhythm consists of a mix of 10 Hz alpha and 6 Hz theta activity. There is a symmetric frontal beta rhythm. There is intermittent left temporal and left parietal theta slowing, moderate amplitude, about 5 to 6 Hz. There are no epileptiform discharges. Interpretation Borderline abnormal awake/drowsy EEG with evidence of mild generalized and left temporal/left parietal slowing. No epileptiform abnormalities. Please see today's neurology consult for further details. Ordered Studies Chest X-Ray 08/07/21 18:35 SINGLE VIEW CHEST CLINICAL HISTORY: Atypical chest pain. FINDINGS: An AP, portable, upright chest radiograph is compared to study dated 07/22/2020 and correlated with chest CT dated 05/31/2021. The examination is mild degraded by portable technique and patient rotation. The cardiomediastinal silhouette is unremarkable noting atherosclerotic calcification of the thoracic aorta. Chronic interstitial thickening is similar to previous. The lungs and pleural spaces are clear. No pneumothorax is seen. The skeletal structures appear osteopenic. There are healed right-sided rib fractures. Fusion hardware is noted in the lower cervical spine. IMPRESSION: No active disease in the chest. ACT 112: Negative or not required by law. Electronically signed by: Almas Shaffer M.D. 08/07/2021 6:[address] 08/07/21 19:27 CT head/brain wo con CLINICAL HISTORY: 61 years-old Male with ams, seizure. Acutely altered mental status with seizure like activity TECHNIQUE: Multiple axial CT images of the head were obtained without contrast. A dose lowering technique was utilized adhering to the principles of ALARA. CT DOSE: 537.48 mGy.cm COMPARISON: Brain MRI 07/29/2020 FINDINGS: No acute intracranial hemorrhage, midline shift, intracranial mass, hydrocephalus, territorial ischemia or abnormal extra-axial collection. Age- related involutional changes. Calcifications of the falx cerebri. Minimal white matter hypodensities may reflect chronic microvascular ischemic change. The calvarium is intact. The paranasal sinuses, mastoid air cells, and middle ear cavities are clear. IMPRESSION: No acute intracranial abnormality. ACT 112: Negative or not required by law. The above report was generated using voice recognition software. It may contain grammatical, syntax or spelling errors. Electronically signed by: Dewayne Gonzales M.D. 08/08/2021 6:41 AM Liver Ultrasound 08/08/21 08:30 US liver HISTORY: 61 years-old Male alcohol abuse, hx steatosis acute right upper quadrant abdominal pain COMPARISON: Abdominal ultrasound and CT abdomen and pelvis studies 02/22/2020 TECHNIQUE: Multiple real-time sonographic images of the abdominal right upper quadrant were obtained assessing grayscale appearance and color flow FINDINGS: The pancreas is heterogeneous. No pancreatic mass or pancreatic ductal dilation identified. Calcifications are again noted within the right hepatic lobe. Increased echogenicity of the hepatic parenchyma without discrete mass or marginal nodularity. Unremarkable gallbladder without wall thickening, cholelithiasis or pericholecystic fluid. Normal common bile duct measures 4 mm. The imaged right kidney is unremarkable without hydronephrosis. IMPRESSION: 1. Hepatic steatosis. 2. Nonspecific heterogeneity of the pancreas is noted in this patient with history of prior pancreatitis. Correlate with lipase level. 3. No biliary ductal dilation. ACT 112: Negative or not required by law. The above report was generated using voice recognition software. It may contain grammatical, syntax or spelling errors. Electronically signed by: Dewayne Gonzales M.D. 08/08/2021 9:12 AM KUB X-Ray 08/09/21 18:00 KUB HISTORY: Subacute right-sided abdominal pain with possible constipation right sided abd pain; eval constipation, stones COMPARISON: CT abdomen and pelvis 02/22/2020 FINDINGS: Nonobstructive bowel gas pattern. Stool volume is mild and within normal limits. Phleboliths of the right hemipelvis redemonstrated. No renal calculi. No ureteral calculi. No pneumoperitoneum or pneumatosis. Mild degenerative changes of the spine, pelvis and hips. No fracture. IMPRESSION: 1. Nonobstructive bowel gas pattern. 2. No renal or ureteral calculi identified. ACT 112: Negative or not required by law. The above report was generated using voice recognition software. It may contain grammatical, syntax or spelling errors. Electronically signed by: Dewayne Gonzales M.D. 08/09/2021 6:55 PM Hospital Course (1) Alcohol withdrawal seizure: The patient has a prior history of seizures and follows with Dr Hadley Medley in [place]. Some of the seizures have been known to be 2nd to etoh withdrawal. Others unrelated to alcohol. Despite use of keppra 500mg BID (questionable compliance, of course) he presented with seizure. EEG did not show a true seizure spike but focal slowing of the left temporal/parietal region was seen. Dr Colin Che, [facility] [place] [facility] Neurology, recommended d/c of keppra, and change to lamictal 25mg BID x 1 week, then 50mg BID after that. He will need f/u with Dr Medley post-discharge. Of note - the patient did not have any additional seizures while hospitalized. He also showed no signs/symptoms of etoh withdrawal during the visit. (2) Alcohol abuse: Patient was at high risk of withdrawal but no significant symptoms of such were seen. He was on an etoh withdrawal protocol but did not require any benzodiazepines. He will cont thiamine 200mg BID x 30 days post-discharge. He will cont folate supplementation 1mg daily x 30 days post-discharge. He should take vitamin b12 supplementation 1mg daily for about 1 year. Patient will not commit to alcohol cessation/abstinence. (3) Leukocytosis: 2nd to stress of seizure? no infectious etiology was found during the visit. WBC at admission = 17. WBC at discharge = 12. (4) Thrombocytopenia: history of none seen this admission (5) Macrocytic anemia: previous folate level was low at 2.5 in April 2021. Given IV replacement here. Advised 30 days of 1mg folic acid at home. previous B12 level low-normal at 381 - replace PO x 1 year. TSH this admission was normal at 1.3. Likely that the majority of the macrocytosis is direct effects of etoh on the bone marrow (coupled with folate/b12 deficiencies). (6) Depression: cont SSRI lamictal can help with mood as well (7) Abdominal pain: Patient complained of vague right-sided abd pain / right flank pain. Chronic and intermittent. Renal CT in 05/2021 did not demonstrate any acute pathology. KUB x-ray this admission showed no stones, no constipation, and was otherwise wnl. Previous CT showed pancreatic head calcifications but patient denies pain with eating or post-prandial diarrhea thus pancreatic insufficiency/chronic pancreatitis symptoms are not present. I advised f/u with his PCP for this complaint. PT, NAVID villaseñor completed - cleared for home with his significant other Total Time Total Time Spent Total Time Spent (In Minutes): 45 Discharge Plan Discharge Items Patient Disposition: Home - Self-Care Reason For Visit: SEIZURE Discharge Diagnosis: 1. Seizure 2. Alcohol use 3. Anemia with folate deficiency 4. Low-normal vitamin B12 level Activity: As commented below Activity Comment: no driving/heavy machinery use for at least 6 months Bathing Comment: no swimming or tub baths UNSUPERVISED; showers are fine Driving/Machine Use: No driving for minimum 6 months Non-emergency contact: Primary Care Provider and Neurologist Call non-emergency contact if: you have any medication questions, your symptoms worsen and you have a fever Follow-up/Referrals: [place]ia Vasquez DO [Primary Care Provider] - 08/25/21 9:20 am HADLEY MEDLEY DO [Non-Staff] - 08/22/21 3:20 pm Diet: Regular Addtl Attending Provider Instructions: Mr Coronado, You were hospitalized after having had a seizure. You were seen by [facility] Neurology, Dr Che, and he recommended the following - 1. Discontinuation of Keppra (also known as LEVETIRACETAM). This is your previous seizure medication. You had been taking this twice daily. Again, please stop this medication. 2. START Lamotrigine and take as follows - * 25mg (1 tab) by mouth twice daily for 6 days, first dose TONIGHT 08/10/21 * THEN - 50mg (2 tabs) by mouth twice daily thereafter * this is your new seizure medication * this medication can also improve your spirits/mood Additional recommendations - 1. Vitamin supplements - * [id number] vitamin B12 - 1000mcg once daily; take for 1 year * prescription folic acid - 1mg by mouth daily for 30 days * thiamine 200mg twice daily for 30 days 2. Please talk to Dr Vasquez about ways that can help you abstain from alcohol. 3. No driving a car or operating heavy machinery for minimum 6 months or as directed by Dr Medley. 4. If the pain in your right side continues please see Dr Vasquez about this. Of note - you had a CAT scan of your abdomen in May that showed cysts on your left kidney but otherwise the scan was normal. Your x-ray of your abdomen yesterday was normal. Follow-up - see separate section Return to [facility] if - * you experience another seizure * you have fever over 100 degrees * you have shortness of breath or chest pain * any other concerns Continue to feel better! Dr Gan Pending Studies at Discharge: No Stand-Alone Forms: My [facility] Reeher, Smoking Cessation Medications and DC Order Prescriptions: New lamotrigine [Lamictal] 25 mg Tablet 25 mg PO UD Qty: 60 RF: 1 Continued sertraline 50 mg tablet 50 mg PO DAILY Qty: 30 RF: 2 Changed cyanocobalamin (vitamin B-12) [Vitamin B-12] 1,000 mcg Tablet 1,000 mcg PO DAILY Qty: 0 RF: 0 thiamine HCl (vitamin B1) 100 mg Tablet 200 mg PO BID 30 Days Qty: 120 RF: 0 folic acid 1 mg tablet 1,000 mcg PO DAILY 30 Days Qty: 30 RF: 0 Discharge Orders: Discharge Order (Routine); Ordered 08/10/21 Ordered By: Regan Gan Admission Data Admit Date/Time: 08/07/21 23:09 Attending Provider: Regan Gan Admit Provider: Trinidad Castro Primary Care Provider: [place] Vasquez Other Providers: Colin Che ; Jennifer Cordon Other Interventions: Discharge Summary Assessment (RN) Last Done: 08/10/21 12:59 Coding Level of Care Code D/C DAY MANAGEMENT >30 MINS Diagnoses Alcohol withdrawal seizure F10.239; R56.9 Complication of substance-induced condition: with unspecified complication Alcohol abuse F10.10 Leukocytosis D72.829 Leukocytosis type: unspecified Thrombocytopenia D69.6 Macrocytic anemia D53.9 Depression F32.9 Depression Type: unspecified Abdominal pain R10.9
--- NOTE | 2021-08-29 14:32 | Coding Query ---
CODING QUERY To promote full compliance with coding requirements relating to patient care, provider participation is requested in all cases of anesthetic assistant uncertainty. Please assist us with the question(s) below: Coding Question(s): Alcohol withdrawal seizure is documented throughout the record, however, the Discharge Summary documents, "He also showed no signs/symptoms of etoh withdrawal during the visit" and, "Alcohol abuse: Patient was at high risk of withdrawal but no significant symptoms of such were seen. He was on an etoh withdrawal protocol but did not require any benzodiazepines.". It is not clear if the patient was treated for possible alcohol withdrawal during this admission or if it was ruled out. Please clarify below, in your clinical opinion. ( ) Possible Alcohol Withdrawal was treated during this admission ( x ) Alcohol withdrawal was Ruled-Out ( ) Other: Please Specify Physician's Response(s): Thank you Francia Calvillo Principal Diagnosis: "that condition established after study, to be chiefly responsible for occasioning the admission of the patient to the hospital for care." Co-Existing Principal Diagnosis: "when two or more diagnoses equally meet the criteria for principal diagnosis as determined by the circumstances of admission, diagnostic work up, and/or therapy provided, and the Alphabetic Index, Tabular List, or another coding guideline does not provide sequencing direction, any one of the diagnoses may be sequenced first." "When the physician has documented what appears to be a current diagnosis in the body of the record, but has not included the diagnosis in the final diagnostic statement, the physician should be asked whether the diagnosis should be added." (Source Coding Clinic 2 QTR90. p3-4) JESSICA
== END 2021-08-10 14:31 | disposition home or self-care (01) | DRG 101 ==
LOC: ED 17:29 → EDINP 23:09 → SUATTDRO 23:09 → 2N 08-09 00:53

== ENCOUNTER 2022-07-15 14:03 | Inpatient (IN) ==
--- NOTE | 2022-07-15 14:19 | Emergency Department Note ---
Impression & Plan Acute pancreatitis, Alcohol abuse, Abdominal pain, Calculus of pancreatic duct, Acute dehydration, Nausea & vomiting ED Provider Note NAME: RIMA COLLAZO AGE: 62 SEX: M : 1960 ARRIVES VIA: Ambulance INFORMANT: Patient, ED PROVIDER(S): Deng Lopez MD Chief Complaint: Abdominal pain, nausea vomiting HPI: Patient presents due to concern for abdominal pain with associated nausea and vomiting. The patient's most recent episode of vomiting was this morning. The abdominal pain has been ongoing for weeks to months. The patient does have a known history of alcohol abuse and quit drinking about a week prior. The patient typically would drink 1/5 of alcohol in 1 week. Patient denies any chest pains or shortness of breath. There was concern from EMS that the patient may not have a palpable pulse in his left leg. Patient has no complaints of leg pain or falls or trauma. Patient denies any injury. Patient denies any blood in the vomitus. He did not take anything for his pain in the last several weeks to months. Patient does smoke tobacco marijuana. No other drugs. ROS: See HPI for pertinent positives and negatives. A total of 10 systems were reviewed and otherwise negative. Past medical history: See below Surgical history: See below Social history: See below Physical Exam: GENERAL: NAD, wearing a mask, non-toxic. Slightly disheveled. EYE EXAM: Normal conjunctiva. PERRL, no anisocoria and EOM's grossly intact w/o pain. NECK: Supple, no nuchal rigidity, no adenopathy, non-tender. No signs of meningismus. FROM of the neck with good chin to chest and neck extension. No st ridor. LUNGS: Clear to auscultation. Normal chest wall mechanics. HEART: Tachycardic and, no MRG. ABDOMEN: Abdomen soft, epigastric and left upper quadrant pain, no lower abdominal pain, normo-active bowel sounds, no masses, no rebound or guarding. BACK: No CVA TTP. SKIN: No rashes and no bruising. UPPER EXTREMITIES: Upper extremities are grossly normal. LOWER EXTREMITIES: Grossly normal, no edema. Good DP pulse in the bilateral lower extremities and no signs of obvious ischemia or swelling. Compartments are soft throughout. Neurovascular intact. NEURO EXAM: A&O x3, cranial nerves II-XII grossly intact, normal speech, moves all 4 extremities. Differential diagnoses: Appendicitis, testicular torsion, infections, diverticulitis, UTI, obstruction, mesenteric ischemia, aortic pathology, in flammatory bowel disease, renal colic, PUD, pancreatitis, biliary pathology, hernia, volvulus, constipation, as well as other pathologies. Course: Patient was seen and evaluated the bedside. Full history physical exam was performed. Imaging Studies: See Below Cardiac monitoring: An order was placed for continuous cardiac monitoring. The monitor shows a rate of 105 with tachycardic and rhythm. MDM: Patient presents due to concern for abdominal pain. Blood work is obtained along with an EKG troponin and CT of the abdomen pelvis. The patient was ordered a banana bag IV pain and nausea medication. Patient is a white count of 17 with normal H&H. Platelet count is unremarkable. The patient's kidney function no obvious concern as the patient has a normal BUN and creatinine. Mildly lower bicarb and slightly on elevated anion gap. Patient clinically may have some associated dehydration did receive IV fluids. Mild elevation of bilirubin 1.4 and AST at 72. Lipase is 205. Patient's urinalysis shows ketones likely consistent with dehydration. Patient's COVID is negative. CT of the abdomen pelvis shows mild stranding adjacent to the pancreas likely pancreatitis. The patient does have a calculus within the pancreatic duct approximately 1.3 x 0.6 cm causing mild pancreatic ductal dilatation. Likely chronic pancreatitis findings and the patient does have cystic foci the pancreas. Recommended follow-up imaging in 3 months. I did speak the on-call computer bookkeeper Dr. Mohit Root who stated that the patient may be n.p.o. and they can perform an ERCP tomorrow. I did speak with the on- call hospitalist Dr. Preston and the patient was admitted to medicine service. I did speak with the patient informed of the findings. Patient's pain is improved. No further vomiting Past Med/Surg History Medical History Alcohol abuse Alcohol withdrawal seizure Cervical spondylosis COPD (chronic obstructive pulmonary disease) Degenerative disc disease GERD without esophagitis Hypertension Kidney lesion Renal Cyst -CT of Abd noted 02/18/21 first describes 7 mm left renal lesion, hyperdense cyst versus solid renal neoplasm. A nonemergent dedicated renal CT scan or MRI is recommended in follow-up -Renal CT 02/19/21-7 mm left renal lesion in question appeared hyperdense to renal parenchyma on the noncontrast portion of the study and did not demons trate significant enhancement. This lesion is felt to represent a hyperdense cyst. A 12 month follow-up study would seem prudent. -Renal CT 05/31/21-Stable 9 mm hyperdense/hemorrhagic cyst within the left kidney, There is a 6 mm hypodense lesion within the left kidney which is technically too small to characterize but favors a simple cyst. Vertebral artery stenosis Vertigo no medications Surgical History History of colonoscopy History of esophagogastroduodenoscopy (EGD) 10/19/20 [facility] Hx of neck surgery (05/2018) cervical fusion (C2-C3?) Full ROM S/P epidural steroid injection Status post tooth extraction Family History Aunt Parkinson disease Cerebral aneurysm Mother Cerebral aneurysm Depression Anemia Uncle Cerebral aneurysm Other No family history of adverse response to anesthesia Denies family history of Ovarian cancer Prostate cancer Myocardial infarction Breast cancer Lung cancer Colorectal cancer Social History Smoking Status: Current every day smoker Tobacco Type: Cigarettes Age Started Using Tobacco: 17; packs per day: 1; Cigarettes Per Day: 20; Second Hand Exposure: No; Hx Alcohol Use: Yes Alcohol type: hard liquor Alcohol Intake Frequency Comment: fifth of vodka per week Hx Substance Use: Yes (daily - no medical card (advised per policy)) Prescribed Medications: Marijuana Substance Use Type Other:: Daily Preferred Language: Maori Communication Ability: Effective Visual Impairment: No Limitations Hearing Ability: Normal 3D Animator Required: No Beliefs That Will Affect Care: None marital status: Single Current Living Situation: Alone and Other Current Living Situation Comment: [facility] current occupational status: disabled Feels Safe at Home: Yes Childhood Exposure to Second-Hand Smoke: Yes Diet Comment: regular caffeine: No during the past year weight has: remained stable Dental Care, Regularly: No Physical Activity Frequency: Does not Exercise Seatbelt Use: always Sunscreen Use: No Assistive Devices: None Allergies Allergies Allergy/AdvReac Type Severity Reaction Status Date / Time No Known Allergies Allergy Verified 07/15/22 16:18 Home Meds Home Medications Medication Instructions Recorded Confirmed ipratropium 20 mcg-albuterol 100 1 puff inhalation QID PRN 07/15/22 07/15/22 mcg/actuation mist for inhalation Shortness Of Breath (Combivent Respimat) lamotrigine 100 mg tablet 100 mg PO BID 07/15/22 07/15/22 (Lamictal) Previous Rx's Medication Instructions Recorded cyanocobalamin (vitamin B-12) 1,000 mcg PO DAILY #0 tabs 08/10/21 1,000 mcg tablet (Vitamin B-12) sertraline 100 mg tablet 100 mg PO DAILY #90 tabs 12/07/21 Results & Data (ED) Vital Signs Vital Signs - 24 hr 07/15/22 14:14 07/15/22 15:14 07/15/22 15:35 Temperature 36.6 C Temperature Source Oral Pulse Rate 107 H 98 H Pulse Rate [Apical] 99 H Respiratory Rate 20 22 Blood Pressure 131/81 Blood Pressure [Right Arm] 131/81 Blood Pressure Mean 97 Blood Pressure Mean [Right Arm] 97 Pulse Oximetry 98 93 99 Oxygen Delivery Method Room Air Room Air Room Air Sepsis Recent Fever Within 48 Hours No Sepsis New/Unexplained Change in Mental Status No Sepsis Action Taken by Nursing No Action Required Home Medications Current Medication List: was personally reviewed by me Laboratory Data Attestation: I reviewed the patient's lab results. Result diagrams: 07/15/22 14:11 07/15/22 14:11 Lab Results 07/15/22 07/15/22 07/15/22 Range/Units 14:11 14:11 16:25 WBC 17.38 H (4.8-10.8) K/ul RBC 4.46 L (4.63-6.08) M/uL Hgb 17.1 (14.0-18.0) g/dl Hct 46.5 (40.1-51.0) % MCV 104.3 H (80.0-100.0) fL MCH 38.3 H (25.0-34.0) pg MCHC 36.8 H (32.0-36.0) g/dL RDW Std Deviation 54.6 H (36.4-46.3) fL RDW Coeff of Brianda 14.1 (11.5-14.5) % Plt Count 388 (130-400) K/uL MPV 10.5 (9.4-12.4) fL Immature Gran % (Auto) 0.7 % Neut % (Auto) 74.2 % Lymph % (Auto) 16.9 % Harding % (Auto) 7.8 % Eos % (Auto) 0.0 % Baso % (Auto) 0.4 % Neut # (Auto) 12.90 H (1.4-6.5) K/uL Lymph # (Auto) 2.94 (1.2-3.4) K/uL Harding # (Auto) 1.35 H (0.24-0.82) K/uL Eos # (Auto) 0.00 (0-0.50) K/uL Baso # (Auto) 0.07 (0-0.2) K/uL Immature Gran # (Auto) 0.12 H (0.00-0.02) K/uL Sodium 142 (136-145) mmol/L Potassium 3.8 (3.5-5.1) mmol/L Chloride 98 (98-107) mmol/L Carbon Dioxide 17 L (21-32) mmol/L Anion Gap 27 H (3-11) BUN 8 (6-23) mg/dl Creatinine 1.03 (0.6-1.4) mg/dl Est Cr Clr Drug Dosing 58.3 ml/min Est GFR ( Amer) 89.8 ml/min Est GFR (Non-Af Amer) 77.5 ml/min BUN/Creatinine Ratio 7.8 L (10-20) Glucose 96 (70-99(Fasting)) mg/dl Calcium 9.7 (8.5-10.1) mg/dl Magnesium 1.8 (1.7-2.4) mg/dl Total Bilirubin 1.4 H (0.2-1.0) mg/dl AST 72 H (13-39) U/L ALT 48 (7-52) U/L Alkaline Phosphatase 100 (34-104) U/L Troponin I High Sens 16.0 (0-20) pg/ml Total Protein 7.7 (6.0-8.3) gm/dl Albumin 4.2 (3.4-5.0) gm/dl Globulin 3.5 (2.5-4.0) gm/dl Albumin/Globulin Ratio 1.2 (0.9-2) Lipase 205 H (11-82) U/L Urine Color Yellow Urine Appearance Clear (Clear) Urine pH 5.5 (4.5-7.5) Ur Specific [place] > 1.045 H (1.000-1.030) Urine Protein 1+ H (Negative) Urine Glucose (UA) Negative (Negative) Urine Ketones 4+ H (Negative) Urine Blood Negative (Negative) Urine Nitrite Negative (Negative) Urine Bilirubin Negative (Negative) Urine Urobilinogen Negative (Negative) Ur Leukocyte Esterase Negative (Negative) Urine WBC (Auto) 5-10 H (0-5) /hpf Urine RBC (Auto) 0-4 (0-4) /hpf U Hyaline Cast (Auto) 1-5 (0-5) /lpf U Epithel Cells (Auto) >30 H (0-5) /lpf Urine Bacteria (Auto) Negative (Negative) Ur Renal Epithelial Cell Not Reportable Granular Casts 1-5 H (0) /lpf SARS-CoV-2, RNA, NAAT (NEGATIVE) 07/15/22 Range/Units Unknown WBC (4.8-10.8) K/ul RBC (4.63-6.08) M/uL Hgb (14.0-18.0) g/dl Hct (40.1-51.0) % MCV (80.0-100.0) fL MCH (25.0-34.0) pg MCHC (32.0-36.0) g/dL RDW Std Deviation (36.4-46.3) fL RDW Coeff of Brianda (11.5-14.5) % Plt Count (130-400) K/uL MPV (9.4-12.4) fL Immature Gran % (Auto) % Neut % (Auto) % Lymph % (Auto) % Harding % (Auto) % Eos % (Auto) % Baso % (Auto) % Neut # (Auto) (1.4-6.5) K/uL Lymph # (Auto) (1.2-3.4) K/uL Harding # (Auto) (0.24-0.82) K/uL Eos # (Auto) (0-0.50) K/uL Baso # (Auto) (0-0.2) K/uL Immature Gran # (Auto) (0.00-0.02) K/uL Sodium (136-145) mmol/L Potassium (3.5-5.1) mmol/L Chloride (98-107) mmol/L Carbon Dioxide (21-32) mmol/L Anion Gap (3-11) BUN (6-23) mg/dl Creatinine (0.6-1.4) mg/dl Est Cr Clr Drug Dosing ml/min Est GFR ( Amer) ml/min Est GFR (Non-Af Amer) ml/min BUN/Creatinine Ratio (10-20) Glucose (70-99(Fasting)) mg/dl Calcium (8.5-10.1) mg/dl Magnesium (1.7-2.4) mg/dl Total Bilirubin (0.2-1.0) mg/dl AST (13-39) U/L ALT (7-52) U/L Alkaline Phosphatase (34-104) U/L Troponin I High Sens (0-20) pg/ml Total Protein (6.0-8.3) gm/dl Albumin (3.4-5.0) gm/dl Globulin (2.5-4.0) gm/dl Albumin/Globulin Ratio (0.9-2) Lipase (11-82) U/L Urine Color Urine Appearance (Clear) Urine pH (4.5-7.5) Ur Specific [place] (1.000-1.030) Urine Protein (Negative) Urine Glucose (UA) (Negative) Urine Ketones (Negative) Urine Blood (Negative) Urine Nitrite (Negative) Urine Bilirubin (Negative) Urine Urobilinogen (Negative) Ur Leukocyte Esterase (Negative) Urine WBC (Auto) (0-5) /hpf Urine RBC (Auto) (0-4) /hpf U Hyaline Cast (Auto) (0-5) /lpf U Epithel Cells (Auto) (0-5) /lpf Urine Bacteria (Auto) (Negative) Ur Renal Epithelial Cell Granular Casts (0) /lpf SARS-CoV-2, RNA, NAAT NEGATIVE (NEGATIVE) Administered Medications Discontinued Medications Multivitamins 10 ml/ Thiamine HCl 100 mg/ Folic Acid 1 mg/Sodium Chloride 1,011.2 mls @ 1,011.2 mls/hr IV .Q1H ONE Stop: 07/15/22 15:33 Last Infusion: 07/15/22 16:11 Dose: 0 mls/hr Documented By: Admin: 07/15/22 15:06 Dose: 1,011.2 mls/hr Documented By: MIGUEL Lactated Ringer's (Lr) 1,000 mls @ 999 mls/hr IV .Q1H1M ONE Stop: 07/15/22 17:26 Last Infusion: 07/15/22 17:29 Dose: 0 mls/hr Documented By: Admin: 07/15/22 16:40 Dose: 999 mls/hr Documented By: MIGUEL Pantoprazole Sodium 40 mg/ (Syringe) 10 mls @ 5 mls/min IV NOW ONE Stop: 07/15/22 16:27 Last Admin: 07/15/22 16:53 Dose: 5 mls/min Documented By: MIGUEL Ioversol (Optiray 350 100ml) 90 ml IV ONCE ONE Stop: 07/15/22 15:20 Last Admin: 07/15/22 15:20 Dose: 90 ml Documented By: LORY Morphine Sulfate (Morphine Sulfate 4 Mg/Ml 1 Ml Carp\\Vial) 4 mg IV NOW STA Stop: 07/15/22 14:35 Last Admin: 07/15/22 14:45 Dose: 4 mg Documented By: BLAKE Ondansetron HCl (Ondansetron Inj 2 Mg/Ml 2 Ml Vial) 4 mg IV NOW STA Stop: 07/15/22 14:35 Last Admin: 07/15/22 14:45 Dose: 4 mg Documented By: BLAKE Imaging Data Radiologist's Impression: Abdomen/Pelvis CT 07/15/22 14:34 CT OF THE ABDOMEN AND PELVIS WITH CONTRAST CLINICAL HISTORY: Epigastric pain. COMPARISON STUDY: CT of the abdomen May 31, 2021 and right upper quadrant ultrasound August 08, 2021. TECHNIQUE: Following IV administration of 90 mL of Optiray, axial images of the abdomen and pelvis were obtained from the lung bases to the proximal femurs. Images were reviewed in the axial, sagittal, and coronal planes. IV contrast was administered without complication. Automated exposure control was utilized for the study. A dose lowering technique was utilized adhering to the principles of ALARA. CT DOSE: 269.17 mGy.cm FINDINGS: No significant abnormalities are identified within the lower lungs. There is mild circumferential wall thickening of the distal esophagus. No pneumatosis, free air or portal venous gas is present. Severe hepatic steatosis is present. There is no biliary ductal dilatation. The spleen, adrenal glands and right kidney are unremarkable. A 1 cm hyperdense left renal lesion on axial image 118 of 441 was shown to represent a hyperdense cyst on prior renal protocol CT. A 7 mm hypodense lesion within the upper pole of the left kidney favors a cyst. There is no hydronephrosis. There is no lymphadenopathy. There is no evidence for a bowel obstruction. Apparent colonic wall thickening is likely due to underdistention. This colonic diverticulosis without evidence for acute diverticulitis. The appendix is normal. Mild peripancreatic stranding is present. There is no peripancreatic fluid collection. Stranding is also noted adjacent to the lesser curvature of the stomach. Mild pancreatic ductal dilatation has developed since CT of May 31, 2021. Main pancreatic duct measures 5 mm in caliber. A large calculus within the pancreatic duct, just proximal to the ampulla, within the pancreatic head, measures 1.3 x 0.6 cm. Adjacent parenchymal calcifications are present. This suggests chronic pancreatitis. A 9 mm cystic focus within the pancreatic head on axial image [address] of May 31, 2021. An additional 5 mm cystic focus within the pancreatic neck on image 126 is also new since that exam. IMPRESSION: 1. Mild stranding adjacent to the pancreas and adjacent stomach. This favors acute pancreatitis. Gastritis is within the differential but considered less likely. 2. Large calculus within the pancreatic duct within the pancreatic head, just proximal to the ampulla, measuring 1.3 x 0.6 cm. This results in mild pancreatic ductal dilatation. 3. Two cystic foci within the pancreas measuring up to 9 mm, as described above. These are new since CT of May 31, 2021. These could reflect dilated sidebranches or side branch IPMNs. Although probably benign, a follow-up pancreatic protocol CT or MRI in 3 months is recommended to exclude the less likely possibility of a neoplastic process. 4. Pancreatic parenchymal calcifications suggestive of chronic pancreatitis. 5. Severe hepatic steatosis. No biliary ductal dilatation. 6. Mild wall thickening the distal esophagus. This favors esophagitis. ACT 112: Negative or not required by law. Electronically signed by: Lakhwinder Arias M.D. 07/15/2022 3:58 PM Discharge Plan Visit Data Chief Complaint: Abdominal Pain Stated Complaint: AB PAIN, NAUSEA, VOMITING ED Provider: Deng Lopez Discharge Problem: Acute pancreatitis, Alcohol abuse, Abdominal pain, Calculus of pancreatic duct, Acute dehydration, Nausea & vomiting Forms Stand Alone Forms: Rachelle [facility] [place] Prescriptions Prescriptions: No Action sertraline 100 mg tablet 100 mg PO DAILY Qty: 90 2RF cyanocobalamin (vitamin B-12) [Vitamin B-12] 1,000 mcg Tablet 1,000 mcg PO DAILY Qty: 0 0RF Rx Instructions: purchase [id number]-ecoaexi lamotrigine [Lamictal] 100 mg Tablet 100 mg PO BID Combivent Respimat 20-100 mcg/actuation mist 1 puff inhalation QID PRN (Reason: Shortness Of Breath) Rx Instructions: PER SPOUSE "USES ONLY WHEN NEEDED". space evenly during waking hours Referrals Referrals: Albania Vasquez DO [Primary Care Provider] - : Acute pancreatitis Qualifiers: Pancreatitis type: alcohol induced Acute pancreatitis complication: unspecified Qualified Code(s): K85.20 - Alcohol induced acute pancreatitis without necrosis or infection Abdominal pain Qualifiers: Abdominal location: epigastric Qualified Code(s): R10.13 - Epigastric pain Nausea & vomiting Qualifiers: Vomiting type: unspecified Qualified Code(s): R11.2 - Nausea with vomiting, unspecified
[2022-07-15] MEDS ORDERED: ONDANSETRON INJ 2 MG/ML 2 ML VIAL IV STA (14:34)
[2022-07-15] MEDS ORDERED: MULTI-VITAMIN INFUSION 10 ML, THIAMINE HCL 100 MG, FOLIC ACID 1 MG in SODIUM CHLORIDE 0... IV ONE (14:34)
[2022-07-15] MEDS ORDERED: MoRPHine SULFATE 4 MG/ML 1 ML CARP\\VIAL IV STA (14:34)
[2022-07-15 14:43] LABS: Basophils # (auto) 0.07 K/uL (0-0.2); Basophils % (auto) 0.4 %; Hematocrit (blood only) 46.5 % (40.1-51.0); Hemoglobin 17.1 g/dl (14.0-18.0); Immature Granulocytes # (auto) 0.12 K/uL (0.00-0.02); Immature Granulocytes % (auto) 0.7 %; Lymphocytes # (auto) 2.94 K/uL (1.2-3.4); Lymphocytes % (auto) 16.9 %; Mean Corpuscular Hemoglobin 38.3 pg (25.0-34.0); Mean Corpuscular Hgb Conc 36.8 g/dL (32.0-36.0); Mean Corpuscular Volume 104.3 fL (80.0-100.0); Mean Platelet Volume 10.5 fL (9.4-12.4); Monocytes # (auto) 1.35 K/uL (0.24-0.82); Monocytes % (auto) 7.8 %; Neutrophils % (auto) 74.2 %; Platelet Count 388 K/uL (130-400); RDW Coefficient of Variation 14.1 % (11.5-14.5); RDW Standard Deviation 54.6 fL (36.4-46.3); Red Blood Count 4.46 M/uL (4.63-6.08); White Blood Count 17.38 K/ul (4.8-10.8)
[2022-07-15 15:06] LABS: Albumin Globulin Ratio 1.2 (0.9-2); Albumin Level 4.2 gm/dl (3.4-5.0); BUN Creatinine Ratio 7.8 (10-20); Bilirubin,Total 1.4 mg/dl (0.2-1.0); Calcium 9.7 mg/dl (8.5-10.1); Creatinine Clr Calc Pharmacy 58.3 ml/min; Est GFR (African American) 89.8 ml/min; Est GFR (Non-African American) 77.5 ml/min; Globulin 3.5 gm/dl (2.5-4.0); Magnesium 1.8 mg/dl (1.7-2.4); Potassium 3.8 mmol/L (3.5-5.1); Total Protein 7.7 gm/dl (6.0-8.3)
[2022-07-15] MEDS ORDERED: OPTIRAY 350 100ml IV ONE (15:19)
--- NOTE | 2022-07-15 16:00 | CT Scan Report ---
CT OF THE ABDOMEN AND PELVIS WITH CONTRAST CLINICAL HISTORY: Epigastric pain. COMPARISON STUDY: CT of the abdomen May 31, 2021 and right upper quadrant ultrasound August 08, 2021. TECHNIQUE: Following IV administration of 90 mL of Optiray, axial images of the abdomen and pelvis we re obtained from the lung bases to the proximal femurs. Images were reviewed in the axial, sagittal, and coronal planes. IV contrast was administered without complication. Automated exposure control wa s utilized for the study. A dose lowering technique was utilized adhering to the principles of ALARA . CT DOSE: 269.17 mGy.cm FINDINGS: No significant abnormalities are identified within the lower lungs. There is mild circumfer ential wall thickening of the distal esophagus. No pneumatosis, free air or portal venous gas is pres ent. Severe hepatic steatosis is present. There is no biliary ductal dilatation. The spleen, adrenal glands and right kidney are unremarkable. A 1 cm hyperdense left renal lesion on axial image 118 of 4 41 was shown to represent a hyperdense cyst on prior renal protocol CT. A 7 mm hypodense lesion withi n the upper pole of the left kidney favors a cyst. There is no hydronephrosis. There is no lymphadeno diony. There is no evidence for a bowel obstruction. Apparent colonic wall thickening is likely due t o underdistention. This colonic diverticulosis without evidence for acute diverticulitis. The appendi x is normal. Mild peripancreatic stranding is present. There is no peripancreatic fluid collection. S tranding is also noted adjacent to the lesser curvature of the stomach. Mild pancreatic ductal dilata tion has developed since CT of May 31, 2021. Main pancreatic duct measures 5 mm in caliber. A lar ge calculus within the pancreatic duct, just proximal to the ampulla, within the pancreatic head, jonathan sures 1.3 x 0.6 cm. Adjacent parenchymal calcifications are present. This suggests chronic pancreatit is. A 9 mm cystic focus within the pancreatic head on axial image [address] of May 31, 2021. An additional 5 mm cystic focus within the pancreatic neck on image 126 is also new since that exam. IMPRESSION: 1. Mild stranding adjacent to the pancreas and adjacent stomach. This favors acute pancreatitis. Mellisa ritis is within the differential but considered less likely. 2. Large calculus within the pancreatic duct within the pancreatic head, just proximal to the ampulla , measuring 1.3 x 0.6 cm. This results in mild pancreatic ductal dilatation. 3. Two cystic foci within the pancreas measuring up to 9 mm, as described above. These are new since CT of May 31, 2021. These could reflect dilated sidebranches or side branch IPMNs. Although proba jamal benign, a follow-up pancreatic protocol CT or MRI in 3 months is recommended to exclude the less likely possibility of a neoplastic process. 4. Pancreatic parenchymal calcifications suggestive of chronic pancreatitis. 5. Severe hepatic steatosis. No biliary ductal dilatation. 6. Mild wall thickening the distal esophagus. This favors esophagitis. ACT 112: Negative or not required by law. Electronically signed by: Lakhwinder Arias M.D. 07/15/2022 3:58 PM
[2022-07-15] MEDS ORDERED: LACTATED RINGER'S 1,000 ML IV ONE (16:26)
[2022-07-15] MEDS ORDERED: PANTOprazole 40 MG in SYRINGE 0 ML IV ONE (16:26)
[2022-07-15 16:44] LABS: Appearance Urine Clear (Clear); Bacteria Urine Automated Negative (Negative); Bilirubin Urine Negative (Negative); Blood Urine Negative (Negative); Color Urine Yellow; Epithelial Cell Urine Auto >30 /lpf (0-5); Glucose Urine UA Negative (Negative); Ketones Urine 4+ (Negative); Leukocyte Esterase Urine Negative (Negative); Nitrite Urine Negative (Negative); Protein Urine 1+ (Negative); RBC Urine Automated 0-4 /hpf (0-4); Specific Gravity Urine > 1.045 (1.000-1.030); Urobilinogen Urine Negative (Negative); pH Urine 5.5 (4.5-7.5)
--- NOTE | 2022-07-15 16:45 | History & Physical Report ---
Date of Service July 15, 2022 Assessment & Plan (1) Acute on chronic pancreatitis: Plan: - Abdominal pain characteristic, lipase 205, CT with findings consistent with an acute pancreatitis, likely on chronic. - CT AP: Mild stranding adjacent to the pancreas and adjacent stomach favoring pancreatitis, with gastritis in the differential but less likely. Large calculus within the pancreatic duct within the pancreatic head, just proximal to the ampulla measuring 1.3 x 0.6 cm with mild pancreatic ductal dilation. There are 2 cystic foci within the pancreas measuring up to 9 mm new from May 2021. Pancreatic calcifications suggestive of chronic pancreatitis. Severe hepatic steatosis. No biliary ductal dilation. Mild wall thickening of the distal esophagus favoring esophagitis. - N.p.o. for now, IV fluids, IV pain medications. - GI/Dr. Isabel consulted for pancreatic duct obstruction, plan for ERCP in a.m. - T bili 1.4, AST 72, ALT alk phos within normal limits. - Suspect pancreatitis secondary to alcohol abuse/pancreatic ductal calculus. C alcium within normal limits, no recent trauma, no history of hyperlipidemia pancreatitis, not on any meds that are likely to trigger pancreatitis. (2) Pancreatic duct obstruction: (3) Alcohol use disorder: Plan: - Previously reports history of drinking 1/5 of alcohol over the course of week, but last drink was 1 week ago. Patient denies any seizures or other withdrawal signs such as diaphoresis, palpitations, agitation. Nausea, vomiting started prior to alcohol cessation. - Supplement thiamine and folate while admitted. Continue B12 supplement. - Recommend continued alcohol abstinence. - AWSS at risk protocol. Patient is 7 days out from last drink. 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 (4) Seizure disorder: Plan: - He follows with a neurologist in [place]. Possibly has a seizure disorder in addition to several alcohol-related seizures per prior neuro notes. - Continue Lamictal. - Neurology consulted on admission in the beginning of the year, EEG: Borderline abnormal awake/drowsy EEG with evidence of mild generalized and left temporal/left parietal slowing. No epileptiform abnormalities. - Seizure precautions ordered. (5) GERD without esophagitis: Plan: - IV Protonix ordered in ED, no evidence of acute upper GI bleed, can continue p.o. protonix. (6) COPD (chronic obstructive pulmonary disease): Plan: - Continue home inhalers. No evidence of exacerbation today. Plan - Admit to med/tele. - SCDs, Lovenox for VTE ppx. - Full Code. History of Present Illness Chief Complaint: abdominal pain with nausea, vomiting x 2 weeks Primary Care Provider: [place]ia Vasquez DO Jorge Coronado is a 62-year-old male with a past medical history of alcohol use disorder with a history of alcohol withdrawal seizures as well as seizure disorder, GERD, and COPD is presenting today with 1 month of abdominal pain, nausea, and vomiting. Patient quit drinking 1 week ago, previously drinking a 1/5th of a handle (750 ml) per week. States his abdominal pain has been around for a long time, however for the past 2 weeks he has been vomiting at least once a day. He has not noticed any blood in his vomit, states vomiting occurs after meals but also sporadically, as he has not been eating over the past 4 days due to pain, but is still vomiting. He has not had any bowel movements over the past 3 to 4 days, but previously had not noticed any changes to them, specifically denies dark, tarry stools, blood with them, danial colored stools, or chronic diarrhea. No urinary symptoms. He is 7 days without his last alcoholic drink, and failure is a history of alcoholic seizures and general seizure disorder he denies any seizures at home or palpitations, irritability, night sweats. Over the past year he has felt more cognitively "slow "saying that he often forgets what he is talking about my conversation, but this is unchanged over the past week and he has had no focal neurological changes. On presentation he has been tachycardic with HR 200469, otherwise vital signs within normal limits and stable. Labs significant for white count of 17, elevated MCV without anemia, lipase 205, anion gap 27, bicarb 17, T bili 1.4, AST 72. No electrode abnormalities, ALT and alk phos wnl. UA is pending. He is COVID-negative. CT AP: Mild stranding adjacent to the pancreas and adjacent stomach favoring pancreatitis, with gastritis in the differential but less likely. Large calculus within the pancreatic duct within the pancreatic head, just proximal to the ampulla measuring 1.3 x 0.6 cm with mild pancreatic ductal dilation. There are 2 cystic foci within the pancreas measuring up to 9 mm new from May 2021. Pancreatic calcifications suggestive of chronic pancreatitis. Severe hepatic steatosis. No biliary ductal dilation. Mild wall thickening of the distal esophagus favoring esophagitis. Allergies Allergy/AdvReac Type Severity Reaction Status Date / Time No Known Allergies Allergy Verified 07/15/22 16:18 Home Medications Medication Instructions Recorded Confirmed Type cyanocobalamin (vitamin B-12) 1,000 mcg PO DAILY #0 tabs 08/10/21 07/15/22 Rx 1,000 mcg tablet (Vitamin B-12) sertraline 100 mg tablet 100 mg PO DAILY #90 tabs 12/07/21 07/15/22 Rx ipratropium 20 mcg-albuterol 100 1 puff inhalation QID PRN 07/15/22 07/15/22 History mcg/actuation mist for inhalation Shortness Of Breath (Combivent Respimat) lamotrigine 100 mg tablet 100 mg PO BID 07/15/22 07/15/22 History (Lamictal) Past Med/Surg History Medical History Alcohol abuse Alcohol withdrawal seizure Cervical spondylosis COPD (chronic obstructive pulmonary disease) Degenerative disc disease GERD without esophagitis Hypertension Kidney lesion Renal Cyst -CT of Abd noted 02/18/21 first describes 7 mm left renal lesion, hyperdense cyst versus solid renal neoplasm. A nonemergent dedicated renal CT scan or MRI is recommended in follow-up -Renal CT 02/19/21-7 mm left renal lesion in question appeared hyperdense to renal parenchyma on the noncontrast portion of the study and did not demonstrate significant enhancement. This lesion is felt to represent a hyperdense cyst. A 12 month follow-up study would seem prudent. -Renal CT 05/31/21-Stable 9 mm hyperdense/hemorrhagic cyst within the left kidney, There is a 6 mm hypodense lesion within the left kidney which is technically too small to characterize but favors a simple cyst. Vertebral artery stenosis Vertigo no medications Surgical History History of colonoscopy History of esophagogastroduodenoscopy (EGD) 10/19/20 [facility] Hx of neck surgery (05/2018) cervical fusion (C2-C3?) Full ROM S/P epidural steroid injection Status post tooth extraction Family History Aunt Parkinson disease Cerebral aneurysm Mother Cerebral aneurysm Depression Anemia Uncle Cerebral aneurysm Other No family history of adverse response to anesthesia Denies family history of Ovarian cancer Prostate cancer Myocardial infarction Breast cancer Lung cancer Colorectal cancer Social History Smoking Status: Current every day smoker Tobacco Type: Cigarettes Age Started Using Tobacco: 17; packs per day: 1; Cigarettes Per Day: 20; Second Hand Exposure: Yes; Do You Dip or Chew Tobacco: No; Tobacco Cessation Education Requested by Patient: No Hx Alcohol Use: Yes Alcohol type: hard liquor Alcohol Intake Frequency Comment: fifth of vodka per week Hx Substance Use: Yes Prescribed Medications: Marijuana Last Used Substance: Days (ago) Substance Use Type Other:: Daily Preferred Language: German Communication Ability: Effective Visual Impairment: No Limitations Hearing Ability: Normal Home Care And Home Health Aides Teacher Required: No Beliefs That Will Affect Care: None marital status: Single Current Living Situation: Significant Other Current Living Situation Comment: [place] current occupational status: disabled Other Information That Helps Us Care for You: No Feels Safe at Home: Yes Safety Concerns: Feels Safe At This Time Childhood Exposure to Second-Hand Smoke: Yes Diet Comment: regular caffeine: No during the past year weight has: remained stable Dental Care, Regularly: No Physical Activity Frequency: Does not Exercise Seatbelt Use: always Sunscreen Use: No Assistive Devices: Cane and Glasses Assistive Devices Comment: Glasses not present. Review of Systems Review of Systems: Constitutional: No fever/chills, weakness, fatigue, myalgias, anorexia, night sweats Eyes: No diplopia, no worsening or blurred vision ENT: normal hearing, no trouble swallowing Respiratory: No cough, sputum, dyspnea at rest or on exertion Cardiovascular: No chest pain, tightness or palpitations Abdomen: abdominal pain x1 month or longer with new nausea, vomiting x 2 weeks, no hematemesis,s melena, or hematochezia, diarrhea, constipation, or danial colored stool : Denies dysuria, hematuria, increased urgency/frequency, urinary retention Musculoskeletal: No joint pain, calf pain, swelling Neurologic: No weakness, numbness/tingling, or balance problems Psychiatric: No anxiety or depression Skin: No rash or itch Physical Exam Physical Exam: General: awake, alert, no apparent distress Head: Normocephalic, atraumatic ENT: PERRL, EOMI, no pharyngeal exudate, mucous membranes moist Chest: Clear to auscultation, on room air, no adventitious breath sounds Cardiac: Regular rate and rhythm, no murmur, no JVD, normal peripheral pulses, good capillary refill Abdominal: Mildly TTP in upper left and right quadrants without rebound or guarding; NABS x 4 quadrants, soft, nontender to palpation, no rebound, guarding or tenderness Extremities: Normal inspection, no peripheral edema or erythema, calfs nontender to palpation Psych: Normal mood and affect Neuro: AAO x 3, strength intact bilaterally and rated 5/5, no motor deficits, speech is clear, no peripheral sensory deficits Skin: no rash or erythema Results & Data Results & Data ([facility]) Vital Signs (Past 12 Hours) Vital Signs Temp Pulse Pulse Resp BP BP Pulse Ox 07/15/22 15:35 99 H 22 131/81 99 07/15/22 15:14 98 H 20 93 07/15/22 14:14 36.6 C 107 H 131/81 98 O2 Del Method 07/15/22 15:35 Room Air 07/15/22 15:14 Room Air 07/15/22 14:14 Room Air Laboratory Results Abnormal lab results 07/15/22 07/15/22 07/15/22 Range/Units 14:11 14:11 16:25 WBC 17.38 H (4.8-10.8) K/ul RBC 4.46 L (4.63-6.08) M/uL MCV 104.3 H (80.0-100.0) fL MCH 38.3 H (25.0-34.0) pg MCHC 36.8 H (32.0-36.0) g/dL RDW Std Deviation 54.6 H (36.4-46.3) fL Neut # (Auto) 12.90 H (1.4-6.5) K/uL Citrus # (Auto) 1.35 H (0.24-0.82) K/uL Immature Gran # (Auto) 0.12 H (0.00-0.02) K/uL Carbon Dioxide 17 L (21-32) mmol/L Anion Gap 27 H (3-11) BUN/Creatinine Ratio 7.8 L (10-20) Total Bilirubin 1.4 H (0.2-1.0) mg/dl AST 72 H (13-39) U/L Lipase 205 H (11-82) U/L Ur Specific [place] > 1.045 H (1.000-1.030) Urine Protein 1+ H (Negative) Urine Ketones 4+ H (Negative) Urine WBC (Auto) 5-10 H (0-5) /hpf U Epithel Cells (Auto) >30 H (0-5) /lpf Granular Casts 1-5 H (0) /lpf Diagnostic Findings Abdomen/Pelvis CT 07/15/22 14:34 CT OF THE ABDOMEN AND PELVIS WITH CONTRAST CLINICAL HISTORY: Epigastric pain. COMPARISON STUDY: CT of the abdomen May 31, 2021 and right upper quadrant ultrasound August 08, 2021. TECHNIQUE: Following IV administration of 90 mL of Optiray, axial images of the abdomen and pelvis were obtained from the lung bases to the proximal femurs. Images were reviewed in the axial, sagittal, and coronal planes. IV contrast was administered without complication. Automated exposure control was utilized for the study. A dose lowering technique was utilized adhering to the principles of ALARA. CT DOSE: 269.17 mGy.cm FINDINGS: No significant abnormalities are identified within the lower lungs. There is mild circumferential wall thickening of the distal esophagus. No pneumatosis, free air or portal venous gas is present. Severe hepatic steatosis is present. There is no biliary ductal dilatation. The spleen, adrenal glands and right kidney are unremarkable. A 1 cm hyperdense left renal lesion on axial image 118 of 441 was shown to represent a hyperdense cyst on prior renal christina col CT. A 7 mm hypodense lesion within the upper pole of the left kidney favors a cyst. There is no hydronephrosis. There is no lymphadenopathy. There is no evidence for a bowel obstruction. Apparent colonic wall thickening is likely due to underdistention. This colonic diverticulosis without evidence for acute diverticulitis. The appendix is normal. Mild peripancreatic stranding is present. There is no peripancreatic fluid collection. Stranding is also noted adjacent to the lesser curvature of the stomach. Mild pancreatic ductal dilatation has developed since CT of May 31, 2021. Main pancreatic duct measures 5 mm in caliber. A large calculus within the pancreatic duct, just proximal to the ampulla, within the pancreatic head, measures 1.3 x 0.6 cm. Adjacent parenchymal calcifications are present. This suggests chronic pancreatitis. A 9 mm cystic focus within the pancreatic head on axial image [address] of May 31, 2021. An additional 5 mm cystic focus within the pancreatic neck on image 126 is also new since that exam. IMPRESSION: 1. Mild stranding adjacent to the pancreas and adjacent stomach. This favors acute pancreatitis. Gastritis is within the differential but considered less likely. 2. Large calculus within the pancreatic duct within the pancreatic head, just proximal to the ampulla, measuring 1.3 x 0.6 cm. This results in mild pancreatic ductal dilatation. 3. Two cystic foci within the pancreas measuring up to 9 mm, as described above. These are new since CT of May 31, 2021. These could reflect dilated sidebranches or side branch IPMNs. Although probably benign, a follow-up pancreatic protocol CT or MRI in 3 months is recommended to exclude the less likely possibility of a neoplastic process. 4. Pancreatic parenchymal calcifications suggestive of chronic pancreatitis. 5. Severe hepatic steatosis. No biliary ductal dilatation. 6. Mild wall thickening the distal esophagus. This favors esophagitis. ACT 112: Negative or not required by law. Electronically signed by: Lakhwinder Arias M.D. 07/15/2022 3:58 PM Code Status & VTE Plan Code Status Full code. Supervising Physician Co-Signing Physician Notes I personally saw and examined the patient. I verified all pagan points and agree with Kathrin Lilly PA-C with the following exceptions and/or additions: 62 year old male presents with 1 month abdominal pain, nausea and vomiting. O/E Malnourished appearing, HS1+2, RRR, no murmurs, Chest CTAB, Abdo mild epigastric tenderness without guarding or rebound A/P Acute on chronic pancreatitis with concerning pancreatic duct calculus - LR 1000ml bolus now then 200ml/hr. NPO. Consult GI for ERCP tomorrow. PG Care Time/CCT Total # of Minutes Spent Total Time Spent with Patient: Total time spent is greater than 50% in coordination of care (as documented) at patient's floor/unit and/or counseling patient: Coding Level of Care Code 94958 Initial Inpt Care Lvl 3 Diagnoses Acute on chronic pancreatitis K85.90; K86.1 Pancreatic duct obstruction K86.89 Alcohol use disorder F19.90 Seizure disorder G40.909 GERD without esophagitis K21.9 COPD (chronic obstructive pulmonary disease) J44.9
--- NOTE | 2022-07-15 17:07 | Anesthesiology Consultation ---
Date of Service July 15, 2022 Assessment & Plan (1) Encounter for pre-operative examination: Chart Review Chart Review: data entry representative initiated History Height/Weight Height: 5 ft 9 in Weight: 55.4 kg Allergies Allergy/AdvReac Type Severity Reaction Status Date / Time No Known Allergies Allergy Verified 07/15/22 16:18 Medications Home Medications Medication Instructions Recorded Confirmed Last Taken cyanocobalamin (vitamin B-12) 1,000 mcg PO DAILY #0 tabs 08/10/21 07/15/22 07/15/22 1,000 mcg tablet (Vitamin B-12) sertraline 100 mg tablet 100 mg PO DAILY #90 tabs 12/07/21 07/15/22 07/15/22 ipratropium 20 mcg-albuterol 100 1 puff inhalation QID PRN 07/15/22 07/15/22 Unknown mcg/actuation mist for inhalation Shortness Of Breath (Combivent Respimat) lamotrigine 100 mg tablet 100 mg PO BID 07/15/22 07/15/22 07/15/22 08:00 (Lamictal) Active Medications Generic Name Dose Route Start Last Admin Trade Name Freq PRN Reason Stop Dose Admin Lactated Ringer's 1,000 mls @ 999 mls/hr 07/15/22 16:26 07/15/22 16:40 Lr IV 07/15/22 17:26 999 mls/hr .Q1H1M ONE Administration Past Medical History Medical History Alcohol abuse Alcohol withdrawal seizure Cervical spondylosis COPD (chronic obstructive pulmonary disease) Degenerative disc disease GERD without esophagitis Hypertension Kidney lesion Renal Cyst -CT of Abd noted 02/18/21 first describes 7 mm left renal lesion, hyperdense cyst versus solid renal neoplasm. A nonemergent dedicated renal CT scan or MRI is recommended in follow-up -Renal CT 02/19/21-7 mm left renal lesion in question appeared hyperdense to renal parenchyma on the noncontrast portion of the study and did not demonstrate significant enhancement. This lesion is felt to represent a hyperdense cyst. A 12 month follow-up study would seem prudent. -Renal CT 05/31/21-Stable 9 mm hyperdense/hemorrhagic cyst within the left kidney, There is a 6 mm hypodense lesion within the left kidney which is technically too small to characterize but favors a simple cyst. Vertebral artery stenosis Vertigo no medications Past Family History Family History Aunt Parkinson disease Cerebral aneurysm Mother Cerebral aneurysm Depression Anemia Uncle Cerebral aneurysm Other No family history of adverse response to anesthesia Denies family history of Ovarian cancer Prostate cancer Myocardial infarction Breast cancer Lung cancer Colorectal cancer Past Surgical History Surgical History History of colonoscopy History of esophagogastroduodenoscopy (EGD) 10/19/20 [facility] Hx of neck surgery (05/2018) cervical fusion (C2-C3?) Full ROM S/P epidural steroid injection Status post tooth extraction Social History Smoking Status: Current every day smoker tobacco type: cigarettes Smoking cigarettes per day: 20 Hx Alcohol Use: Yes Alcohol type: hard liquor alcohol intake frequency: 3 or more drinks per day Hx Substance Use: Yes (daily - no medical card (advised per policy)) substance use type: marijuana Substance Use Type Other:: Daily Physical Exam Vital Signs Last Vital Signs Temp 97.9 F 07/15/22 14:14 Pulse 99 H 07/15/22 15:35 Resp 22 07/15/22 15:35 BP 131/81 07/15/22 15:35 Pulse Ox 99 07/15/22 15:35 O2 Del Method 07/15/22 15:35 Testing Laboratory Results 07/15/22 14:11 07/15/22 14:11 Electrocardiogram Date: 08/07/21 Normal sinus rhythm, rate 88 bpm Prolonged QT Abnormal ECG When compared with ECG of 22-JUL-2020 18:06, T wave inversion no longer evident in Inferior leads Confirmed by Eduardo Louis ([id number]) on 08/08/2021 1:07:41 PM
[2022-07-15] MEDS ORDERED: SODIUM CHLORIDE 0.9% 1000ML 1,000 ML IV ONE (17:52)
[2022-07-15] MEDS ORDERED: IPRATROPIUM BROMIDE/ALBUTEROL respimat INH INH PRN (20:00)
[2022-07-15] MEDS ORDERED: LORazepam 1 MG TAB PO PRN (20:00)
[2022-07-15] MEDS ORDERED: MoRPHine SULFATE 4 MG/ML 1 ML CARP\\VIAL IV PRN (20:00)
[2022-07-15] MEDS: LACTATED RINGER'S 1,000 ML IV SCH (20:00)
[2022-07-15] MEDS ORDERED: IPRATROPIUM BROMIDE HFA INHALER INH PRN (20:09)
[2022-07-15] MEDS ORDERED: ALBUTEROL HFA 8 GM INHALER INH PRN (20:09)
[2022-07-15] MEDS: ENOXAPARIN INJ 40 MG/0.4 ML SYR SQ SCH (20:49)
[2022-07-15] MEDS: FOLIC ACID 1 MG TAB PO SCH (20:49)
[2022-07-15] MEDS: THIAMINE HCL 100 MG TAB PO SCH (20:50)
[2022-07-15] MEDS: lamoTRIgine 100 MG TAB PO SCH (20:51)
[2022-07-15] MEDS: PANTOprazole 40 MG TAB PO SCH (20:51)
[2022-07-16] MEDS: LACTATED RINGER'S 1,000 ML IV SCH ×5 (01:25→21:19)
[2022-07-16 06:46] LABS: Basophils # (auto) 0.05 K/uL (0-0.2); Basophils % (auto) 0.4 %; Eosinophils # (auto) 0.05 K/uL (0-0.50); Eosinophils % (auto) 0.4 %; Hematocrit (blood only) 31.4 % (40.1-51.0); Hemoglobin 11.5 g/dl (14.0-18.0); Immature Granulocytes # (auto) 0.05 K/uL (0.00-0.02); Immature Granulocytes % (auto) 0.4 %; Lymphocytes # (auto) 2.42 K/uL (1.2-3.4); Lymphocytes % (auto) 19.8 %; Mean Corpuscular Hemoglobin 38.1 pg (25.0-34.0); Mean Corpuscular Hgb Conc 36.6 g/dL (32.0-36.0); Mean Platelet Volume 10.1 fL (9.4-12.4); Monocytes # (auto) 1.18 K/uL (0.24-0.82); Monocytes % (auto) 9.7 %; Neutrophils # (auto) 8.45 K/uL (1.4-6.5); Neutrophils % (auto) 69.3 %; Platelet Count 242 K/uL (130-400); RDW Standard Deviation 53.3 fL (36.4-46.3); Red Blood Count 3.02 M/uL (4.63-6.08)
[2022-07-16] MEDS ORDERED: MIDAZOLAM HCL 1 MG/ML 2ML VIAL ONE (06:49)
[2022-07-16] MEDS ORDERED: fentaNYL citrate 100 MCG/2 ML VIAL ONE (06:49)
[2022-07-16] MEDS ORDERED: fentaNYL citrate 100 MCG/2 ML VIAL IV PRN (07:14)
[2022-07-16] MEDS ORDERED: ATROPINE SULFATE 0.1 MG/ML 10ML SYR IV PRN (07:14)
[2022-07-16] MEDS ORDERED: ePHEDrine sulfate 50 MG/ML AMP IV PRN (07:14)
[2022-07-16] MEDS ORDERED: ONDANSETRON INJ 2 MG/ML 2 ML VIAL IV PRN (07:14)
[2022-07-16 07:15] LABS: Albumin Globulin Ratio 1.4 (0.9-2); Albumin Level 2.8 gm/dl (3.4-5.0); BUN Creatinine Ratio 11.9 (10-20); Calcium 7.7 mg/dl (8.5-10.1); Creatinine Clr Calc Pharmacy 155.5 ml/min; Est GFR (African American) 144.6 ml/min; Est GFR (Non-African American) 124.8 ml/min; Magnesium 1.4 mg/dl (1.7-2.4); Total Protein 4.8 gm/dl (6.0-8.3)
--- NOTE | 2022-07-16 07:17 | Gastrointestinal Consultation ---
Date of Consultation July 16, 2022 Assessment & Plan (1) Calculus of pancreatic duct: ERCP today Patient was explained in detail regarding risks, benefits, limitations and alternatives of the above endoscopic procedure. Risks of intravenous sedation used for procedure were also explained. Risks include, but not limited to perforation, bleeding, infection, respiratory distress, cardiac arrest and . Patient is also aware about the possibility of missed lesion. Patient's questions were answered. The patient verbalized understanding the information and agreed to undergo the procedure. History of Present Illness Reason for Consultation: Acute pancreatitis Attending Physician: Regan Preston MD History of Present Illness 62 years old male patient with Hx of alcohol use, presented with abdominal pain, found to have mild acute pancreatitis on chronic pancreatitis with PD stone and upstream ductal dilation. Allergies Allergy/AdvReac Type Severity Reaction Status Date / Time No Known Allergies Allergy Verified 07/15/22 16:18 Home Medications Medication Instructions Recorded Confirmed Type cyanocobalamin (vitamin B-12) 1,000 mcg PO DAILY #0 tabs 08/10/21 07/15/22 Rx 1,000 mcg tablet (Vitamin B-12) sertraline 100 mg tablet 100 mg PO DAILY #90 tabs 12/07/21 07/15/22 Rx ipratropium 20 mcg-albuterol 100 1 puff inhalation QID PRN 07/15/22 07/15/22 History mcg/actuation mist for inhalation Shortness Of Breath (Combivent Respimat) lamotrigine 100 mg tablet 100 mg PO BID 07/15/22 07/15/22 History (Lamictal) Patient History Medical History Alcohol abuse Alcohol withdrawal seizure Cervical spondylosis COPD (chronic obstructive pulmonary disease) Degenerative disc disease GERD without esophagitis Hypertension Kidney lesion Renal Cyst -CT of Abd noted 02/18/21 first describes 7 mm left renal lesion, hyperdense cyst versus solid renal neoplasm. A nonemergent dedicated renal CT scan or MRI is recommended in follow-up -Renal CT 02/19/21-7 mm left renal lesion in question appeared hyperdense to renal parenchyma on the noncontrast portion of the study and did not demonstrate significant enhancement. This lesion is felt to represent a hyperdense cyst. A 12 month follow-up study would seem prudent. -Renal CT 05/31/21-Stable 9 mm hyperdense/hemorrhagic cyst within the left kidney, There is a 6 mm hypodense lesion within the left kidney which is technically too small to characterize but favors a simple cyst. Vertebral artery stenosis Vertigo no medications Surgical History History of colonoscopy History of esophagogastroduodenoscopy (EGD) 10/19/20 [facility] Hx of neck surgery (05/2018) cervical fusion (C2-C3?) Full ROM S/P epidural steroid injection Status post tooth extraction Family History Aunt Parkinson disease Cerebral aneurysm Mother Cerebral aneurysm Depression Anemia Uncle Cerebral aneurysm Other No family history of adverse response to anesthesia Denies family history of Ovarian cancer Prostate cancer Myocardial infarction Breast cancer Lung cancer Colorectal cancer Social History Smoking Status: Current every day smoker Tobacco Type: Cigarettes Age Started Using Tobacco: 17; packs per day: 1; Cigarettes Per Day: 20; Second Hand Exposure: Yes; Do You Dip or Chew Tobacco: No; Tobacco Cessation Education Requested by Patient: No Hx Alcohol Use: Yes Alcohol type: hard liquor Alcohol Intake Frequency Comment: fifth of vodka per week Hx Substance Use: Yes Prescribed Medications: Marijuana Last Used Substance: Days (ago) Substance Use Type Other:: Daily Preferred Language: Urdu Communication Ability: Effective Visual Impairment: No Limitations Hearing Ability: Normal Network Systems Administrator Required: No Beliefs That Will Affect Care: None marital status: Single Current Living Situation: Significant Other Current Living Situation Comment: [place] current occupational status: disabled Other Information That Helps Us Care for You: No Feels Safe at Home: Yes Safety Concerns: Feels Safe At This Time Childhood Exposure to Second-Hand Smoke: Yes Diet Comment: regular caffeine: No during the past year weight has: remained stable Dental Care, Regularly: No Physical Activity Frequency: Does not Exercise Seatbelt Use: always Sunscreen Use: No Assistive Devices: Cane and Glasses Assistive Devices Comment: Glasses not present. Review of Systems Review of Systems: All systems reviewed & are unremarkable except as noted in HPI & below Physical Exam Constitutional: comfortable; no acute distress Respiratory: normal respiratory effort, lungs clear to auscultation Cardiovascular: RRR, no murmur, no edema Gastrointestinal (Abdomen): normal bowel sounds, soft, nontender, no hepatosplenomegaly Results & Data ([facility]) Vital Signs (Past 12 Hours) Vital Signs Temp Pulse Pulse Resp BP Pulse Ox Pulse Ox 07/16/22 06:29 36.8 C 85 18 115/62 98 07/16/22 02:31 36.8 C 87 18 113/62 98 07/15/22 19:50 07/15/22 19:50 07/15/22 19:50 99 07/16/22 00:37 89 07/15/22 20:07 88 07/15/22 22:07 36.6 C 91 H 18 124/72 98 07/15/22 19:50 36.8 C 87 18 137/74 99 07/15/22 19:50 36.8 C 87 18 137/74 99 O2 Del Method O2 Del Method 07/16/22 06:29 Room Air 07/16/22 02:31 Room Air 07/15/22 19:50 Room Air 07/15/22 19:50 Room Air 07/15/22 19:50 Room Air 07/16/22 00:37 07/15/22 20:07 07/15/22 22:07 Room Air 07/15/22 19:50 Room Air 07/15/22 19:50 Room Air Laboratory Results Laboratory Results - last 24 hr 07/15/22 07/15/22 07/15/22 14:11 14:11 16:25 WBC 17.38 H RBC 4.46 L Hgb 17.1 Hct 46.5 MCV 104.3 H MCH 38.3 H MCHC 36.8 H RDW Std Deviation 54.6 H RDW Coeff of Brianda 14.1 Plt Count 388 MPV 10.5 Immature Gran % (Auto) 0.7 Neut % (Auto) 74.2 Lymph % (Auto) 16.9 Osborne % (Auto) 7.8 Eos % (Auto) 0.0 Baso % (Auto) 0.4 Neut # (Auto) 12.90 H Lymph # (Auto) 2.94 Osborne # (Auto) 1.35 H Eos # (Auto) 0.00 Baso # (Auto) 0.07 Immature Gran # (Auto) 0.12 H Sodium 142 Potassium 3.8 Chloride 98 Carbon Dioxide 17 L Anion Gap 27 H BUN 8 Creatinine 1.03 Est Cr Clr Drug Dosing 58.3 Est GFR ( Amer) 89.8 Est GFR (Non-Af Amer) 77.5 BUN/Creatinine Ratio 7.8 L Glucose 96 Calcium 9.7 Magnesium 1.8 Total Bilirubin 1.4 H AST 72 H ALT 48 Alkaline Phosphatase 100 Troponin I High Sens 16.0 Total Protein 7.7 Albumin 4.2 Globulin 3.5 Albumin/Globulin Ratio 1.2 Lipase 205 H Urine Color Yellow Urine Appearance Clear Urine pH 5.5 Ur Specific [place] > 1.045 H Urine Protein 1+ H Urine Glucose (UA) Negative Urine Ketones 4+ H Urine Blood Negative Urine Nitrite Negative Urine Bilirubin Negative Urine Urobilinogen Negative Ur Leukocyte Esterase Negative Urine WBC (Auto) 5-10 H Urine RBC (Auto) 0-4 U Hyaline Cast (Auto) 1-5 U Epithel Cells (Auto) >30 H Urine Bacteria (Auto) Negative Ur Renal Epithelial Cell Not Reportable Granular Casts 1-5 H SARS-CoV-2, RNA, NAAT 07/15/22 07/16/22 07/16/22 Unknown 05:49 05:49 WBC 12.20 H RBC 3.02 L Hgb 11.5 L D Hct 31.4 L MCV 104.0 H MCH 38.1 H MCHC 36.6 H RDW Std Deviation 53.3 H RDW Coeff of Brianda 14.0 Plt Count 242 MPV 10.1 Immature Gran % (Auto) 0.4 Neut % (Auto) 69.3 Lymph % (Auto) 19.8 Osborne % (Auto) 9.7 Eos % (Auto) 0.4 Baso % (Auto) 0.4 Neut # (Auto) 8.45 H Lymph # (Auto) 2.42 Osborne # (Auto) 1.18 H Eos # (Auto) 0.05 Baso # (Auto) 0.05 Immature Gran # (Auto) 0.05 H Sodium 140 Potassium 3.0 L D Chloride 107 Carbon Dioxide 18 L Anion Gap 15 H BUN 5 L Creatinine 0.42 L D Est Cr Clr Drug Dosing 155.5 Est GFR ( Amer) 144.6 Est GFR (Non-Af Amer) 124.8 BUN/Creatinine Ratio 11.9 Glucose 63 L Calcium 7.7 L D Magnesium 1.4 L Total Bilirubin 1.0 AST 36 ALT 26 Alkaline Phosphatase 59 Troponin I High Sens Total Protein 4.8 L D Albumin 2.8 L Globulin 2.0 L Albumin/Globulin Ratio 1.4 Lipase 343 H Urine Color Urine Appearance Urine pH Ur Specific [place] Urine Protein Urine Glucose (UA) Urine Ketones Urine Blood Urine Nitrite Urine Bilirubin Urine Urobilinogen Ur Leukocyte Esterase Urine WBC (Auto) Urine RBC (Auto) U Hyaline Cast (Auto) U Epithel Cells (Auto) Urine Bacteria (Auto) Ur Renal Epithelial Cell Granular Casts SARS-CoV-2, RNA, NAAT NEGATIVE
[2022-07-16] MEDS ORDERED: PROPOFOL IV EMULSION 10 MG/ML 20 ML VIAL IV ONE (07:38)
[2022-07-16] MEDS ORDERED: PHENYLEPHRINE HCL 10 MG/ML VIAL ONE (07:52)
[2022-07-16] MEDS ORDERED: SUCCINYLCHOLINE CHLORIDE 20 MG/ML 10 ML VIAL IV ONE (07:52)
[2022-07-16] MEDS ORDERED: ONDANSETRON INJ 2 MG/ML 2 ML VIAL ONE (07:52)
[2022-07-16] MEDS ORDERED: LARYING-O-JET KIT (LTA) ONE (07:53)
[2022-07-16] MEDS ORDERED: LIDOCAINE 2% MPF LOCAL 5 ML VIAL INFIL ONE (07:53)
[2022-07-16] MEDS ORDERED: INDOMETHACIN 50 MG SUPP PR ONE (08:26)
--- NOTE | 2022-07-16 08:36 | Operative Report ---
Post Operative Report Pre & Post Diagnosis Operation Date: 07/16/22 07:15 Pre-Op Diagnosis: PANCREATITI W/ PANCREATIC DUCT STONE Post-Op Diagnosis: PANCREATITI W/ PANCREATIC DUCT STONE I identified the patient and participated in the time-out.: Yes Procedure Operation Date: 07/16/22 07:15 Actual Procedures p Endoscopic Retrograde Cholangiopancreatography with a Sphincterotomy, Removal of Stone, and Biliary Stent Instertion(Not Applicable) - Benoit Isabel MD Surgeon Benoit Isabel MD Naphtha Washing System Operator None Estimated Blood Loss 0 Findings See Below (PD stone removed, Stents placed) Specimens None Description of Procedure ERCP I attest to the content of the Intraoperative Record and any orders documented t herein. Any exceptions are noted below.
--- NOTE | 2022-07-16 08:58 | Anesthesiology Progress Note ---
Date of Service July 16, 2022 Anesthesia Post Procedure Vital Signs Vital Signs: Temp Pulse Pulse Pulse Resp BP BP 07/16/22 06:29 98.2 F 85 18 115/62 07/16/22 02:31 98.2 F 87 18 113/62 07/15/22 19:50 07/15/22 19:50 07/15/22 19:50 07/16/22 00:37 89 07/15/22 20:07 88 07/15/22 22:07 97.9 F 91 H 18 124/72 07/15/22 19:50 98.2 F 87 18 137/74 07/15/22 19:50 98.2 F 87 18 137/74 07/15/22 19:00 98.6 F 95 H 20 127/66 07/15/22 17:00 92 H 18 133/68 07/15/22 15:35 99 H 22 131/81 07/15/22 15:14 98 H 20 07/15/22 14:14 97.9 F 107 H 131/81 Pulse Ox Pulse Ox O2 Del Method O2 Del Method 07/16/22 06:29 98 Room Air 07/16/22 02:31 98 Room Air 07/15/22 19:50 Room Air 07/15/22 19:50 Room Air 07/15/22 19:50 99 Room Air 07/16/22 00:37 07/15/22 20:07 07/15/22 22:07 98 Room Air 07/15/22 19:50 99 Room Air 07/15/22 19:50 99 Room Air 07/15/22 19:00 98 Room Air 07/15/22 17:00 99 Room Air 07/15/22 15:35 99 Room Air 07/15/22 15:14 93 Room Air 07/15/22 14:14 98 Room Air Pain Intensity Abdomen: Pain Intensity: 3 Transfer of Care Handoff Completed per policy Notes Mental Status: alert / awake / arousable and participated in evaluation Patient Amnestic to Procedure: Yes Nausea / Vomiting: adequately controlled Pain: adequately controlled Airway Patency, RR, SpO2: stable & adequate BP & HR: stable & adequate Hydration State: stable & adequate Anesthetic Complications: no major complications apparent and Pt Satisfied with anesthetic care
[2022-07-16] MEDS ORDERED: GLUCAGON FOR INJ 1 MG VIAL ONE (09:08)
--- NOTE | 2022-07-16 09:15 | Fluoroscopy Report ---
[place] ERCP biliary ductal HISTORY: 62 years-old Male ERCP IN OR acute right upper quadrant abdominal pain COMPARISON: CT 07/15/2022 TECHNIQUE: 26 spot fluoroscopic images of the right upper quadrant abdomen were obtained utilizing 4 minutes and 12.3 seconds fluoroscopy time FINDINGS: Endoscope is noted within the duodenum. There is cannulation of the common bile and pancreatic ducts with retrograde injection of contrast. A balloon sweep of the pancreatic duct. There is irregular dil ation of the pancreatic duct with focal narrowing noted at the level of the pancreatic head. There is also dilation of the pancreatic duct sidebranches within the region of the pancreatic body and tail. The common bile duct is normal in caliber. Contrast extends into the gallbladder lumen. There is no intrahepatic biliary ductal dilation. Subsequent images demonstrate placement of common bile and panc reatic duct stents which appear to be in satisfactory positioning. IMPRESSION: Fluoroscopic assistance as above. ACT 112: Negative or not required by law. The above report was generated using voice recognition software. It may contain grammatical, syntax o r spelling errors. Electronically signed by: Dewayne Gonzales M.D. 07/16/2022 9:13 AM
[2022-07-16] MEDS: THIAMINE HCL 100 MG TAB PO SCH (09:51)
[2022-07-16] MEDS: lamoTRIgine 100 MG TAB PO SCH ×2 (09:51→21:14)
[2022-07-16] MEDS: PANTOprazole 40 MG TAB PO SCH ×2 (09:51→21:14)
[2022-07-16] MEDS: CYANOCOBALAMIN (B-12) 500 MCG TABLET PO SCH (09:52)
[2022-07-16] MEDS: SERTRALINE HCL 100 MG TABLET PO SCH (09:52)
[2022-07-16] MEDS: FOLIC ACID 1 MG TAB PO SCH (09:52)
--- NOTE | 2022-07-16 12:50 | Hospitalist Progress Note ---
Date of Service July 16, 2022 Assessment & Plan (1) Acute on chronic pancreatitis: Plan: - Patient was admitted with Abdominal pain characteristic, lipase 205, CT with findings consistent with an acute pancreatitis, likely on chronic. - CT AP shows evidence favoring pancreatitis, and also Large calculus within the pancreatic duct within the pancreatic head, just proximal to the ampulla measuring 1.3 x 0.6 cm with mild pancreatic ductal dilation. - patient is now s/p Endoscopic Retrograde Cholangiopancreatography with a Sphincterotomy, Removal of Stone, and Biliary Stent Instertion -Tolerating clear liquid after surgery (2) Pancreatic duct obstruction: Plan: s/p Endoscopic Retrograde Cholangiopancreatography with a Sphincterotomy, Removal of Stone, and Biliary Stent Instertion (3) Alcohol use disorder: Plan: - Previously reports history of drinking 1/5 of alcohol over the course of week, but last drink was 1 week ago. Patient denies any seizures or other withdrawal signs such as diaphoresis, palpitations, agitation. Nausea, vomiting started prior to alcohol cessation. - Supplement thiamine and folate while admitted. Continue B12 supplement. - Recommend continued alcohol abstinence. - AWSS at risk protocol. Patient is 7 days out from last drink. 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 (4) Seizure disorder: Plan: - He follows with a neurologist in [place]. Possibly has a seizure disorder in addition to several alcohol-related seizures per prior neuro notes. - Continue Lamictal. - Neurology consulted on admission in the beginning of the year, EEG: Borderline abnormal awake/drowsy EEG with evidence of mild generalized and left temporal/left parietal slowing. No epileptiform abnormalities. - Seizure precautions ordered. (5) GERD without esophagitis: Plan: - IV Protonix ordered in ED, no evidence of acute upper GI bleed, can continue p.o. protonix. (6) COPD (chronic obstructive pulmonary disease): Plan: - Continue home inhalers. No evidence of exacerbation today. Plan -discharge when stable from GI - SCDs, Lovenox for VTE ppx. - Full Code. Admission and Anticipated Discharge Date Admission Date: July 15, 2022 Subjective patient seen and examined following ERCP, doing well after procedure, tolerating clear liquid Review of Systems Review of Systems: All systems reviewed are negative, apart from the ones contained in the history. Physical Exam Physical Exam: The patient is awake, alert and oriented 3, well developed and well nourished, normocephalic and atraumatic, lying in bed and in no acute distress. HEENT--PERRL, EOMI, mucous membranes and oropharynx mildly dry Neck--supple. No JVD. No bruits. Thyroid normal, trachea midline, no adenopathy. Heart--normal S1 and S2. No murmurs, rubs or gallops. Lungs--clear bilaterally, no respiratory distress, no accessory muscle use. Abdomen--normal bowel sounds and soft. Mild epigastric and left sided abdominal pain Extremities--no cyanosis or clubbing. No edema. Dermatologic--normal skin turgor, normal color, no abnormal lymph nodes, no rash. Neurologic--cranial nerves II through XII grossly intact. Rheumatologic--normal range of motion. Psychiatric--normal affect. Results & Data Results & Data ([facility]) Vital Signs (Past 12 Hours) Vital Signs Temp Pulse Pulse Pulse Resp BP BP 07/16/22 11:00 98.2 F 89 20 129/71 07/16/22 10:21 97.7 F 95 H 18 136/74 07/16/22 09:55 97.9 F 91 H 18 133/68 07/16/22 09:40 97.7 F 93 H 16 149/75 H 07/16/22 09:35 92 H 13 141/80 H 07/16/22 09:25 90 12 143/79 H 07/16/22 09:15 97.7 F 92 H 15 128/76 07/16/22 07:14 86 07/16/22 09:05 90 20 140/79 07/16/22 08:55 98 H 14 143/81 H 07/16/22 08:48 97.9 F 104 H 16 146/82 H 07/16/22 07:00 07/16/22 06:29 98.2 F 85 18 115/62 07/16/22 02:31 98.2 F 87 18 113/62 Pulse Ox O2 Del Method O2 Flow Rate 07/16/22 11:00 97 Room Air 07/16/22 10:21 98 Room Air 07/16/22 09:55 98 Room Air 07/16/22 09:40 98 Room Air 07/16/22 09:35 97 Room Air 07/16/22 09:25 98 Room Air 07/16/22 09:15 97 Room Air 07/16/22 07:14 07/16/22 09:05 100 Oxymask 4 07/16/22 08:55 100 Oxymask 9 07/16/22 08:48 100 Oxymask 9 07/16/22 07:00 Room Air 07/16/22 06:29 98 Room Air 07/16/22 02:31 98 Room Air PG Care Time/CCT Total # of Minutes Spent Total Time Spent with Patient: Total time spent is greater than 50% in coordination of care (as documented) at patient's floor/unit and/or counseling patient: Coding Level of Care Code 78491 Subseq Hosp Care Lvl 2 Diagnoses Acute on chronic pancreatitis K85.90; K86.1 Pancreatic duct obstruction K86.89 Alcohol use disorder F19.90 Seizure disorder G40.909 GERD without esophagitis K21.9 COPD (chronic obstructive pulmonary disease) J44.9 Time Spent (min) 35
[2022-07-16] MEDS: ONDANSETRON INJ 2 MG/ML 2 ML VIAL IV PRN (13:04)
[2022-07-16] MEDS: KETOROLAC TROMETHAMINE 15 MG/ML VIAL IV PRN (13:04)
--- NOTE | 2022-07-16 14:42 | GI REPORT ---
Patient Name: Jorge Coronado Procedure Date: 07/16/2022 7:21 AM Date of : 1960 Admit Type: Inpatient Age: 62 Gender: Male Attending MD: Benoit Isabel MD, Procedure: ERCP Providers: Benoit Isabel MD Referring MD: Regan Preston Md Indications: Pancreatic duct stone Medicines: General Anesthesia Complications: No immediate complications. Estimated Blood Loss: Estimated blood loss: none. Procedure: Pre-Anesthesia Assessment: - Prior to the procedure, a History and Physical was performed, and patient medications, allergies and sensitivities were reviewed. The patient's tolerance of previous anesthesia was reviewed. - The risks and benefits of the procedure and the sedation options and risks were discussed with the patient. All questions were answered and informed consent was obtained. - Patient identification and proposed procedure were verified prior to the procedure by the physician and the nurse. The procedure was verified in the procedure room. - Pre-procedure physical examination revealed no contraindications to sedation. After obtaining informed consent, the scope was passed under direct vision. Throughout the procedure, the patient's blood pressure, pulse, and oxygen saturations were monitored continuously. The Duodenoscope was introduced through the mouth, and advanced to the duodenum and used to inject contrast into the bile duct and ventral pancreatic duct. The ERCP was accomplished without difficulty. The patient tolerated the procedure well. Findings: The divinity professor film was normal. The esophagus was successfully intubated under direct vision. The scope was advanced to a normal major papilla in the descending duodenum without detailed examination of the pharynx, larynx and associated structures, and upper GI tract. The upper GI tract was grossly normal. A 0.025 inch x 270 cm angled Visiglide wire was passed into the biliary tree. The CleverCut distal wire sphincterotome was passed over the guidewire and the bile duct was then deeply cannulated. Contrast was injected. I personally interpreted the bile duct images. Ductal flow of contrast was adequate. Image quality was adequate. Contrast extended to the main bile duct. Opacification of the entire biliary tree was successful. The maximum diameter of the ducts was 8 mm. Biliary and pancreatic orifice pre-cut sphincterotomies were made with a monofilament needle knife using a freehand technique using ERBE electrocautery. There was no post-sphincterotomy bleeding. A 0.025 inch x 270 cm angled Visiglide wire was passed into the ventral pancreatic duct. The ventral pancreatic duct was then deeply cannulated with the short-nosed traction sphincterotome. Contrast was injected. Opacification of the entire pancreatic ductal system was successful. The maximum diameter of the ducts was 6 mm. The ventral pancreatic duct in the head of the pancreas contained a single stone. Ventral pancreatic sphincterotomy was made with a monofilament traction (standard) sphincterotome using ERBE electrocautery. There was no post-sphincterotomy bleeding. The biliary sphincterotomy was extended with a monofilament traction (standard) sphincterotome using ERBE electrocautery. There was no post-sphincterotomy bleeding. The main pancreatic duct was successfully dilated with a 6 mm balloon dilator. To find object(s) the ventral pancreatic duct was swept with an 8.5 mm balloon starting at the pancreatic duct in the tail of the pancreas. One stone was removed. No stones remained. The biliary tree was swept with an 11.5 mm balloon starting at the bifurcation. Nothing was found. One 10 Fr by 7 cm plastic biliary stent with a single external flap and a single internal flap was placed into the common bile duct. Bile flowed through the stent. The stent was in good position. One 7 Fr by 11 cm plastic pancreatic stent with a single external flap and a single internal flap was placed into the ventral pancreatic duct. Clear fluid flowed through the stent. The stent was in good position. Indomethacin 100 mg was given via suppository to decrease the risk of post-ERCP pancreatitis (PEP). Impression: - A single pancreatic stone was found. Complete removal was accomplished. - Biliary and pancreatic sphincterotomies were performed. - One plastic biliary stent was placed into the common bile duct. - One plastic pancreatic stent was placed into the ventral pancreatic duct. Recommendation: - Return patient to [facility] for ongoing care. - Clear liquid diet today. - Repeat ERCP in 3 months to remove stent. - Recall GI if needed. Benoit Isabel MD 07/16/2022 2:42:25 PM This report has been signed electronically. Note Initiated On: 07/16/2022 7:21 AM Number of Addenda: 0 I attest to the content of the Intraoperative Record and orders documented therein, exceptions below {[id number]}
[2022-07-16] MEDS: ACETAMINOPHEN 1,000 MG/100 ML VIAL IV PRN (15:38)
[2022-07-16] MEDS: NICOTINE 14 MG/24 HR PATCH TD SCH (16:40)
[2022-07-16] MEDS: ENOXAPARIN INJ 40 MG/0.4 ML SYR SQ SCH (21:14)
[2022-07-17] MEDS: LACTATED RINGER'S 1,000 ML IV SCH ×5 (02:07→21:38)
[2022-07-17] MEDS: KETOROLAC TROMETHAMINE 15 MG/ML VIAL IV PRN ×2 (02:10→08:37)
[2022-07-17 05:56] LABS: Hematocrit (blood only) 28.9 % (40.1-51.0); Hemoglobin 10.7 g/dl (14.0-18.0); Mean Corpuscular Hemoglobin 37.4 pg (25.0-34.0); Mean Platelet Volume 9.8 fL (9.4-12.4); Platelet Count 193 K/uL (130-400); RDW Coefficient of Variation 13.6 % (11.5-14.5); RDW Standard Deviation 50.5 fL (36.4-46.3); Red Blood Count 2.86 M/uL (4.63-6.08); White Blood Count 9.85 K/ul (4.8-10.8)
--- NOTE | 2022-07-17 05:59 | Electrocardiogram Report ---
Test Reason : Blood Pressure : / mmHG Vent. Rate : 109 BPM Atrial Rate : 109 BPM P-R Int : 118 ms QRS Dur : 080 ms QT Int : 348 ms P-R-T Axes : 097 083 069 degrees QTc Int : 468 ms Poor data quality, interpretation may be adversely affected Sinus tachycardia Biatrial enlargement Nonspecific ST abnormality Abnormal ECG When compared with ECG of 07-AUG-2021 17:44, No significant change was found Confirmed by Hugo Busch ([id number]) on 07/17/2022 5:58:51 AM Referred By: REFERRED SELF Confirmed By:Hugo Busch
[2022-07-17 06:31] LABS: BUN Creatinine Ratio 4.5 (10-20); Calcium 7.6 mg/dl (8.5-10.1); Creatinine Clr Calc Pharmacy 167.9 ml/min; Est GFR (African American) 141.9 ml/min; Est GFR (Non-African American) 122.4 ml/min; Potassium 2.7 mmol/L (3.5-5.1)
[2022-07-17] MEDS: POTASSIUM CHLORIDE / WTR 10 MEQ/100 ML PLCT IV SCH ×6 (07:27→12:48)
[2022-07-17] MEDS: NICOTINE 14 MG/24 HR PATCH TD SCH (07:28)
[2022-07-17] MEDS: FOLIC ACID 1 MG TAB PO SCH (08:32)
[2022-07-17] MEDS: SERTRALINE HCL 100 MG TABLET PO SCH (08:32)
[2022-07-17] MEDS: PANTOprazole 40 MG TAB PO SCH ×2 (08:32→20:32)
[2022-07-17] MEDS: THIAMINE HCL 100 MG TAB PO SCH (08:32)
[2022-07-17] MEDS: CYANOCOBALAMIN (B-12) 500 MCG TABLET PO SCH (08:32)
[2022-07-17] MEDS: lamoTRIgine 100 MG TAB PO SCH ×2 (08:33→20:32)
[2022-07-17] MEDS: POTASSIUM CHLORIDE 20 MEQ/15 ML UDC PO SCH ×3 (10:16→20:32)
[2022-07-17] MEDS: ACETAMINOPHEN 1,000 MG/100 ML VIAL IV PRN (14:56)
--- NOTE | 2022-07-17 18:23 | Hospitalist Progress Note ---
Date of Service July 17, 2022 Assessment & Plan (1) Acute on chronic pancreatitis: Plan: CT AP on 07/15 showed evidence favoring pancreatitis and also large calculus within the pancreatic duct within the pancreatic head, just proximal to the ampulla measuring 1.3 x 0.6 cm with mild pancreatic ductal dilation. - S/p ERCP on 07/16 with large gallbladder stone removed. Biliary sphincterectomy and stent placed to be removed in 3 months. - Tolerated clear liquid after surgery; advanced to full liquids on 07/17. - Pain control with Toradol and morphine PRN (2) Pancreatic duct obstruction: Plan: S/p ERCP as above (3) Alcohol use disorder: Plan: Previously reports history of drinking 1/5 of alcohol over the course of week, b ut last drink was 1 week ago. Patient denies any seizures or other withdrawal signs such as diaphoresis, palpitations, agitation. - Supplement thiamine and folate while admitted. Continue B12 supplement. - Recommend continued alcohol abstinence. - AWSS at risk protocol. Patient is 7 days out from last drink. 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 (4) Seizure disorder: Plan: He follows with a neurologist in [place]. Possibly has a seizure disorder in addition to several alcohol-related seizures per prior neuro notes. - Continue Lamictal. - Neurology consulted on admission in the beginning of the year, EEG: Borderline abnormal awake/drowsy EEG with evidence of mild generalized and left temporal/left parietal slowing. No epileptiform abnormalities. - Seizure precautions ordered. (5) GERD without esophagitis: Plan: - PPI PO BID (6) COPD (chronic obstructive pulmonary disease): Plan: No evidence of exacerbation today. - Continue home inhalers. Admission and Anticipated Discharge Date Admission Date: July 15, 2022 Subjective Still reports not feeling well. Reports that he is hungry, but then he gets full within a few bites. Not clear to me if this is chronic or not as he reports his appetite is "not great" even at baseline. Physical Exam Constitutional: WD/WN, vitals as above Eyes: EOM intact bilaterally; no conjunctival abnormality ENMT: external ear and nose normal, oropharynx normal Neck: trachea midline, no thyromegaly normal visual inspection Respiratory: normal respiratory effort, lungs clear to auscultation no respiratory distress Cardiovascular: RRR, no murmur, no edema Gastrointestinal (Abdomen): Inspection/Auscultation: abdomen normal to inspection; abdomen not distended Musculoskeletal: no cyanosis or clubbing, extremities motor strength 5/5 Skin: no rashes, warm and dry Neurologic: moves all extremities and awake Psychiatric: Orientation: alert, oriented to person and cooperative Results & Data Results & Data ([facility]) Vital Signs (Past 12 Hours) Vital Signs Temp Pulse Pulse Resp BP BP Pulse Ox 07/17/22 15:34 36.7 C 95 H 18 133/69 95 07/17/22 15:00 85 07/17/22 11:40 36.9 C 82 18 151/77 H 98 07/17/22 08:00 07/17/22 08:00 37 C 94 H 18 148/70 H 96 07/17/22 07:05 96 H O2 Del Method 07/17/22 15:34 Room Air 07/17/22 15:00 07/17/22 11:40 Room Air 07/17/22 08:00 Room Air 07/17/22 08:00 Room Air 07/17/22 07:05 PG Care Time/CCT Total # of Minutes Spent Total Time Spent with Patient: Total time spent is greater than 50% in coordination of care (as documented) at patient's floor/unit and/or counseling patient: Coding Level of Care Code 14391 Subseq Hosp Care Lvl 2 Diagnoses Acute on chronic pancreatitis K85.90; K86.1 Pancreatic duct obstruction K86.89 Alcohol use disorder F19.90 Seizure disorder G40.909 GERD without esophagitis K21.9 COPD (chronic obstructive pulmonary disease) J44.9
[2022-07-17] MEDS: MELATONIN 3 MG TAB PO PRN (20:32)
[2022-07-17] MEDS: ENOXAPARIN INJ 40 MG/0.4 ML SYR SQ SCH (20:33)
[2022-07-18] MEDS: LACTATED RINGER'S 1,000 ML IV SCH ×5 (04:06→23:11)
[2022-07-18 06:37] LABS: Hematocrit (blood only) 29.7 % (40.1-51.0); Hemoglobin 11.1 g/dl (14.0-18.0); Mean Corpuscular Hemoglobin 37.4 pg (25.0-34.0); Mean Corpuscular Hgb Conc 37.4 g/dL (32.0-36.0); Mean Platelet Volume 10.5 fL (9.4-12.4); Platelet Count 197 K/uL (130-400); RDW Coefficient of Variation 13.2 % (11.5-14.5); RDW Standard Deviation 47.9 fL (36.4-46.3); Red Blood Count 2.97 M/uL (4.63-6.08); White Blood Count 8.04 K/ul (4.8-10.8)
[2022-07-18 07:10] LABS: Alanine Aminotransferase 45 U/L (7-52); Albumin Globulin Ratio 1.2 (0.9-2); Albumin Level 2.4 gm/dl (3.4-5.0); Alkaline Phosphatase 73 U/L (34-104); Anion Gap 4 (3-11); Aspartate Aminotransferase 64 U/L (13-39); Bilirubin,Total 1.8 mg/dl (0.2-1.0); Blood Urea Nitrogen < 2 mg/dl (6-23); Calcium 7.5 mg/dl (8.5-10.1); Carbon Dioxide 31 mmol/L (21-32); Chloride 104 mmol/L (98-107); Est GFR (African American) 146.1 ml/min; Glucose 90 mg/dl (70-99(Fasting)); Potassium 3.3 mmol/L (3.5-5.1); Sodium 139 mmol/L (136-145); Total Protein 4.4 gm/dl (6.0-8.3)
[2022-07-18] MEDS: CYANOCOBALAMIN (B-12) 500 MCG TABLET PO SCH (08:00)
[2022-07-18] MEDS: PANTOprazole 40 MG TAB PO SCH ×2 (08:20→20:46)
[2022-07-18] MEDS: SERTRALINE HCL 100 MG TABLET PO SCH (08:20)
[2022-07-18] MEDS: lamoTRIgine 100 MG TAB PO SCH ×2 (08:20→20:46)
[2022-07-18] MEDS: THIAMINE HCL 100 MG TAB PO SCH (08:20)
[2022-07-18] MEDS: NICOTINE 14 MG/24 HR PATCH TD SCH (08:21)
[2022-07-18] MEDS: FOLIC ACID 1 MG TAB PO SCH (08:21)
[2022-07-18] MEDS: ACETAMINOPHEN 1,000 MG/100 ML VIAL IV PRN (12:46)
--- NOTE | 2022-07-18 16:08 | Hospitalist Progress Note ---
Date of Service July 18, 2022 Assessment & Plan (1) Acute on chronic pancreatitis: Plan: CT AP on 07/15 showed evidence favoring pancreatitis and also large calculus within the pancreatic duct within the pancreatic head, just proximal to the ampulla measuring 1.3 x 0.6 cm with mild pancreatic ductal dilation. - S/p ERCP on 07/16 with large gallbladder stone removed. Biliary sphincterectomy and stent placed to be removed in 3 months. - Tolerated clear liquid after surgery; advanced to full liquids on 07/17. - Pain control with Toradol and morphine PRN (2) GERD without esophagitis: Plan: CT a/p on 07/15 noted esophagitis and gastritis. ERCP on 07/16 didn't overtly comment on the stomach or esophagitis other than "grossly normal." - PPI PO BID (3) Pancreatic duct obstruction: Plan: S/p ERCP as above (4) Alcohol use disorder: Plan: Previously reports history of drinking 1/5 of alcohol over the course of week, but last drink was 1 week ago. Patient denies any seizures or other withdrawal signs such as diaphoresis, palpitations, agitation. - Supplement thiamine and folate while admitted. Continue B12 supplement. - Recommend continued alcohol abstinence. - AWSS at risk protocol. Patient is 7 days out from last drink. 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 (5) Seizure disorder: Plan: He follows with a neurologist in [place]. Possibly has a seizure disorder in addition to several alcohol-related seizures per prior neuro notes. - Continue Lamictal. - Neurology consulted on admission in the beginning of the year, EEG: Borderline abnormal awake/drowsy EEG with evidence of mild generalized and left temporal/left parietal slowing. No epileptiform abnormalities. - Seizure precautions ordered. (6) COPD (chronic obstructive pulmonary disease): Plan: No evidence of exacerbation today. - Continue home inhalers. Plan VTE ppx: Lovenox 40 mg SQ daily Admission and Anticipated Discharge Date Admission Date: July 15, 2022 Subjective Still reports not feeling well. Reports that he is hungry, but then he gets full within a few bites. Feels this is worse in the last 2 weeks. Physical Exam Constitutional: WD/WN, vitals as above Eyes: EOM intact bilaterally; no conjunctival abnormality ENMT: external ear and nose normal, oropharynx normal Neck: trachea midline, no thyromegaly normal visual inspection Respiratory: normal respiratory effort, lungs clear to auscultation no respiratory distress Cardiovascular: RRR, no murmur, no edema Gastrointestinal (Abdomen): Inspection/Auscultation: abdomen normal to inspection; abdomen not distended Musculoskeletal: no cyanosis or clubbing, extremities motor strength 5/5 Skin: no rashes, warm and dry Neurologic: moves all extremities and awake Psychiatric: Orientation: alert, oriented to person and cooperative Results & Data Results & Data ([facility]) Vital Signs (Past 12 Hours) Vital Signs Temp Pulse Pulse Resp BP BP Pulse Ox 07/18/22 14:53 37.0 C 79 18 143/74 H 95 07/18/22 11:23 37.2 C 81 18 138/73 94 07/18/22 10:51 07/18/22 10:50 92 H 07/18/22 08:00 07/18/22 07:31 36.9 C 82 20 151/87 H 95 Pulse Ox O2 Del Method O2 Del Method 07/18/22 14:53 Room Air 07/18/22 11:23 Room Air 07/18/22 10:51 Room Air 07/18/22 10:50 07/18/22 08:00 95 Room Air 07/18/22 07:31 Room Air PG Care Time/CCT Total # of Minutes Spent Total Time Spent with Patient: Total time spent is greater than 50% in coordination of care (as documented) at patient's floor/unit and/or counseling patient: Coding Level of Care Code 20053 Subseq Hosp Care Lvl 2 Diagnoses Acute on chronic pancreatitis K85.90; K86.1 GERD without esophagitis K21.9 Pancreatic duct obstruction K86.89 Alcohol use disorder F19.90 Seizure disorder G40.909 COPD (chronic obstructive pulmonary disease) J44.9
[2022-07-18] MEDS: KETOROLAC TROMETHAMINE 15 MG/ML VIAL IV PRN (16:57)
[2022-07-18] MEDS: MELATONIN 3 MG TAB PO PRN (20:46)
[2022-07-18] MEDS: ENOXAPARIN INJ 40 MG/0.4 ML SYR SQ SCH (20:46)
[2022-07-19] MEDS: LACTATED RINGER'S 1,000 ML IV SCH ×3 (04:00→14:21)
[2022-07-19 08:14] LABS: Hemoglobin 11.9 g/dl (14.0-18.0); Mean Corpuscular Hemoglobin 37.7 pg (25.0-34.0); Mean Corpuscular Hgb Conc 38.4 g/dL (32.0-36.0); Mean Corpuscular Volume 98.1 fL (80.0-100.0); Mean Platelet Volume 10.7 fL (9.4-12.4); Platelet Count 198 K/uL (130-400); RDW Coefficient of Variation 13.7 % (11.5-14.5); RDW Standard Deviation 49.1 fL (36.4-46.3); Red Blood Count 3.16 M/uL (4.63-6.08); White Blood Count 15.14 K/ul (4.8-10.8)
[2022-07-19 08:18] LABS: Anion Gap 8 (3-11); BUN Creatinine Ratio 6.1 (10-20); Blood Urea Nitrogen 2 mg/dl (6-23); Calcium 7.6 mg/dl (8.5-10.1); Carbon Dioxide 28 mmol/L (21-32); Chloride 101 mmol/L (98-107); Creatinine Clr Calc Pharmacy 232.1 ml/min; Est GFR (African American) > 150.0 ml/min; Est GFR (Non-African American) 137.8 ml/min; Glucose 82 mg/dl (70-99(Fasting)); Potassium 3.2 mmol/L (3.5-5.1); Sodium 137 mmol/L (136-145)
[2022-07-19 08:44] LABS: Alanine Aminotransferase 35 U/L (7-52); Albumin Globulin Ratio 1.3 (0.9-2); Albumin Level 2.6 gm/dl (3.4-5.0); Alkaline Phosphatase 82 U/L (34-104); Aspartate Aminotransferase 39 U/L (13-39); Bilirubin,Total 1.6 mg/dl (0.2-1.0); Lipase 57 U/L (11-82); Magnesium 0.9 mg/dl (1.7-2.4); Total Protein 4.6 gm/dl (6.0-8.3)
[2022-07-19] MEDS: PANTOprazole 40 MG TAB PO SCH ×2 (08:49→19:51)
[2022-07-19] MEDS: SERTRALINE HCL 100 MG TABLET PO SCH (08:49)
[2022-07-19] MEDS: FOLIC ACID 1 MG TAB PO SCH (08:49)
[2022-07-19] MEDS: THIAMINE HCL 100 MG TAB PO SCH (08:49)
[2022-07-19] MEDS: NICOTINE 14 MG/24 HR PATCH TD SCH (08:49)
[2022-07-19] MEDS: CYANOCOBALAMIN (B-12) 500 MCG TABLET PO SCH (08:49)
[2022-07-19] MEDS: lamoTRIgine 100 MG TAB PO SCH ×2 (08:49→19:51)
[2022-07-19] MEDS: ONDANSETRON INJ 2 MG/ML 2 ML VIAL IV PRN (09:00)
[2022-07-19] MEDS: KETOROLAC TROMETHAMINE 15 MG/ML VIAL IV PRN (09:00)
[2022-07-19] MEDS: MAGNESIUM SULFATE / D5W 1 GM/100 ML BAG IV SCH ×6 (10:13→19:50)
--- NOTE | 2022-07-19 15:53 | Hospitalist Progress Note ---
Date of Service July 19, 2022 Assessment & Plan (1) Acute on chronic pancreatitis: Plan: CT AP on 07/15 showed evidence favoring pancreatitis and also large calculus within the pancreatic duct within the pancreatic head, just proximal to the ampulla measuring 1.3 x 0.6 cm with mild pancreatic ductal dilation. CDS queries: SIRS of non-infectious origin due to pancreatitis. Also malnutrition as a result of his chronic pancreatitis. - S/p ERCP on 07/16 with large gallbladder stone removed. Biliary sphincterectomy and stent placed to be removed in 3 months. - Tolerated clear liquid after surgery; advanced to full liquids on 07/17. - Pain control with Toradol and morphine PRN - Will add on Creon. He is getting very full immediately after a few bites. I do wonder if some of this is chronic malabsorption? (2) GERD without esophagitis: Plan: CT a/p on 07/15 noted esophagitis and gastritis. ERCP on 07/16 didn't overtly comment on the stomach or esophagitis other than "grossly normal." - PPI PO BID (3) Pancreatic duct obstruction: Plan: S/p ERCP as above (4) Alcohol use disorder: Plan: Previously reports history of drinking 1/5 of alcohol over the course of week, but last drink was 1 week ago. Patient denies any seizures or other withdrawal signs such as diaphoresis, palpitations, agitation. - Supplement thiamine and folate while admitted. Continue B12 supplement. - Recommend continued alcohol abstinence. - AWSS at risk protocol. Patient is 7 days out from last drink. 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 (5) Seizure disorder: Plan: He follows with a neurologist in [place]. Possibly has a seizure disorder in addition to several alcohol-related seizures per prior neuro notes. - Continue Lamictal. - Neurology consulted on admission in the beginning of the year, EEG: Borderline abnormal awake/drowsy EEG with evidence of mild generalized and left temporal/left parietal slowing. No epileptiform abnormalities. - Seizure precautions ordered. (6) COPD (chronic obstructive pulmonary disease): Plan: No evidence of exacerbation today. - Continue home inhalers. Plan VTE ppx: Lovenox 40 mg SQ daily Admission and Anticipated Discharge Date Admission Date: July 15, 2022 Subjective Still reports not feeling well. Reports that he is hungry, but then he gets full within a few bites. Feels this is worse in the last 2 weeks. Threw up this morning just with some coffee. Physical Exam Constitutional: WD/WN, vitals as above Eyes: EOM intact bilaterally; no conjunctival abnormality ENMT: external ear and nose normal, oropharynx normal Neck: trachea midline, no thyromegaly normal visual inspection Respiratory: normal respiratory effort, lungs clear to auscultation no respiratory distress Cardiovascular: RRR, no murmur, no edema Gastrointestinal (Abdomen): Inspection/Auscultation: abdomen normal to inspection; abdomen not distended Musculoskeletal: no cyanosis or clubbing, extremities motor strength 5/5 Skin: no rashes, warm and dry Neurologic: moves all extremities and awake Psychiatric: Orientation: alert, oriented to person and cooperative Results & Data Results & Data ([facility]) Vital Signs (Past 12 Hours) Vital Signs Temp Pulse Pulse Resp BP BP Pulse Ox 07/19/22 15:38 85 07/19/22 15:18 37.2 C 80 18 126/70 94 07/19/22 11:31 36.8 C 72 19 133/75 100 07/19/22 09:00 07/19/22 08:07 36.9 C 88 18 146/74 H 96 07/19/22 07:27 89 O2 Del Method 07/19/22 15:38 07/19/22 15:18 Room Air 07/19/22 11:31 Room Air 07/19/22 09:00 Room Air 07/19/22 08:07 Room Air 07/19/22 07:27 PG Care Time/CCT Total # of Minutes Spent Total Time Spent with Patient: Total time spent is greater than 50% in coordination of care (as documented) at patient's floor/unit and/or counseling patient: Coding Level of Care Code 43363 Subseq Hosp Care Lvl 2 Diagnoses Acute on chronic pancreatitis K85.90; K86.1 GERD without esophagitis K21.9 Pancreatic duct obstruction K86.89 Alcohol use disorder F19.90 Seizure disorder G40.909 COPD (chronic obstructive pulmonary disease) J44.9
[2022-07-19] MEDS: PANCREAZE (LIPASE 10,500U) CAP PO SCH (18:00)
[2022-07-19] MEDS: ENOXAPARIN INJ 40 MG/0.4 ML SYR SQ SCH (19:50)
[2022-07-20] MEDS: KETOROLAC TROMETHAMINE 15 MG/ML VIAL IV PRN (05:46)
[2022-07-20] MEDS: CYANOCOBALAMIN (B-12) 500 MCG TABLET PO SCH (08:15)
[2022-07-20] MEDS: NICOTINE 14 MG/24 HR PATCH TD SCH (08:15)
[2022-07-20] MEDS: lamoTRIgine 100 MG TAB PO SCH ×2 (08:15→20:23)
[2022-07-20] MEDS: PANCREAZE (LIPASE 10,500U) CAP PO SCH ×3 (08:15→16:58)
[2022-07-20] MEDS: SERTRALINE HCL 100 MG TABLET PO SCH (08:15)
[2022-07-20] MEDS: PANTOprazole 40 MG TAB PO SCH ×2 (08:15→20:24)
[2022-07-20] MEDS: FOLIC ACID 1 MG TAB PO SCH (08:15)
[2022-07-20] MEDS: THIAMINE HCL 100 MG TAB PO SCH (08:16)
[2022-07-20 09:49] LABS: Hematocrit (blood only) 29.8 % (40.1-51.0); Hemoglobin 11.2 g/dl (14.0-18.0); Mean Corpuscular Hgb Conc 37.6 g/dL (32.0-36.0); Mean Corpuscular Volume 98.3 fL (80.0-100.0); Platelet Count 227 K/uL (130-400); RDW Coefficient of Variation 14.4 % (11.5-14.5); RDW Standard Deviation 52.5 fL (36.4-46.3); Red Blood Count 3.03 M/uL (4.63-6.08); White Blood Count 13.54 K/ul (4.8-10.8)
[2022-07-20 10:12] LABS: Anion Gap 4 (3-11); BUN Creatinine Ratio 8.1 (10-20); Blood Urea Nitrogen 3 mg/dl (6-23); Calcium 7.7 mg/dl (8.5-10.1); Carbon Dioxide 33 mmol/L (21-32); Chloride 101 mmol/L (98-107); Est GFR (African American) > 150.0 ml/min; Est GFR (Non-African American) 131.4 ml/min; Glucose 101 mg/dl (70-99(Fasting)); Sodium 138 mmol/L (136-145)
[2022-07-20 10:17] LABS: Alanine Aminotransferase 29 U/L (7-52); Albumin Globulin Ratio 1.2 (0.9-2); Albumin Level 2.5 gm/dl (3.4-5.0); Alkaline Phosphatase 81 U/L (34-104); Aspartate Aminotransferase 30 U/L (13-39); Bilirubin,Total 1.4 mg/dl (0.2-1.0); Globulin 2.1 gm/dl (2.5-4.0); Magnesium 1.8 mg/dl (1.7-2.4); Phosphorus 1.4 mg/dl (2.5-4.9); Total Protein 4.6 gm/dl (6.0-8.3)
--- NOTE | 2022-07-20 11:48 | Hospitalist Progress Note ---
Date of Service July 20, 2022 Assessment & Plan (1) Acute on chronic pancreatitis: Plan: CT AP on 07/15 showed evidence favoring pancreatitis and also large calculus within the pancreatic duct within the pancreatic head, just proximal to the ampulla measuring 1.3 x 0.6 cm with mild pancreatic ductal dilation. CDS queries: SIRS of non-infectious origin due to pancreatitis. Also malnutrition as a result of his chronic pancreatitis. - S/p ERCP on 07/16 with large gallbladder stone removed. Biliary sphincterectomy and stent placed to be removed in 3 months. - Tolerated clear liquid after surgery; advanced to full liquids on 07/17, and low-fat by 07/19. - Pain control with Toradol and morphine PRN - Added on Creon on 07/19. He is getting very full immediately after a few bites. I do wonder if some of this is chronic malabsorption? No improvement. Reached out to GI re: further testing or treatment options. Possibly some dysmotility? Would consider gastric emptying study possibly. (2) GERD without esophagitis: Plan: CT a/p on 07/15 noted esophagitis and gastritis. ERCP on 07/16 didn't overtly comment on the stomach or esophagitis other than "grossly normal." - PPI PO BID (3) Pancreatic duct obstruction: Plan: S/p ERCP as above (4) Alcohol use disorder: Plan: Previously reports history of drinking 1/5 of alcohol over the course of week, but last drink was 1 week ago. Patient denies any seizures or other withdrawal signs such as diaphoresis, palpitations, agitation. - Supplement thiamine and folate while admitted. Continue B12 supplement. - Recommend continued alcohol abstinence. - AWSS at risk protocol. Patient is 7 days out from last drink. 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 (5) Seizure disorder: Plan: He follows with a neurologist in [place]. Possibly has a seizure disorder in addition to several alcohol-related seizures per prior neuro notes. - Continue Lamictal. - Neurology consulted on admission in the beginning of the year, EEG: Borderline abnormal awake/drowsy EEG with evidence of mild generalized and left temporal/left parietal slowing. No epileptiform abnormalities. - Seizure precautions ordered. (6) COPD (chronic obstructive pulmonary disease): Plan: No evidence of exacerbation today. - Continue home inhalers. Plan VTE ppx: Lovenox 40 mg SQ daily Admission and Anticipated Discharge Date Admission Date: July 15, 2022 Subjective No change today. Still gets nauseated and full with a few bites of his meal. Still with pain in the epigastric area, though mostly with palpation. Physical Exam Constitutional: WD/WN, vitals as above Eyes: EOM intact bilaterally; no conjunctival abnormality ENMT: external ear and nose normal, oropharynx normal Neck: trachea midline, no thyromegaly normal visual inspection Respiratory: normal respiratory effort, lungs clear to auscultation no respiratory distress Cardiovascular: RRR, no murmur, no edema Gastrointestinal (Abdomen): Inspection/Auscultation: abdomen normal to inspection; abdomen not distended Percussion/Palpation: + abdomen tender (Epigastric area) and abdomen soft; no guarding and abdomen not rigid Musculoskeletal: no cyanosis or clubbing, extremities motor strength 5/5 Skin: no rashes, warm and dry Neurologic: moves all extremities and awake Psychiatric: Orientation: alert, oriented to person and cooperative Results & Data Results & Data ([facility]) Vital Signs (Past 12 Hours) Vital Signs Temp Pulse Resp BP BP Pulse Ox O2 Del Method 07/20/22 08:11 36.8 C 88 18 145/81 H 97 Nasal Cannula 07/20/22 06:07 Nasal Cannula 07/20/22 05:56 84 92 Nasal Cannula 07/20/22 05:40 36.7 C 94 H 18 137/78 93 Room Air 07/20/22 00:17 37.0 C 86 20 116/69 94 Room Air O2 Flow Rate 07/20/22 08:11 1 07/20/22 06:07 1 07/20/22 05:56 1 07/20/22 05:40 07/20/22 00:17 PG Care Time/CCT Total # of Minutes Spent Total Time Spent with Patient: Total time spent is greater than 50% in coordination of care (as documented) at patient's floor/unit and/or counseling patient: Coding Level of Care Code 35638 Subseq Hosp Care Lvl 2 Diagnoses Acute on chronic pancreatitis K85.90; K86.1 GERD without esophagitis K21.9 Pancreatic duct obstruction K86.89 Alcohol use disorder F19.90 Seizure disorder G40.909 COPD (chronic obstructive pulmonary disease) J44.9
[2022-07-20] MEDS ORDERED: POTASSIUM PHOS 3 MMOL/1 ML INFUSION IV STA (11:49)
[2022-07-20] MEDS: POTASSIUM CHLORIDE 20 MEQ/15 ML UDC PO SCH ×3 (12:29→20:22)
[2022-07-20] MEDS ORDERED: POTASSIUM PHOSPHATE 30 MMOL in SODIUM CHLORIDE 0.9% 500 ML IV ONE (12:30)
[2022-07-20] MEDS: ENOXAPARIN INJ 40 MG/0.4 ML SYR SQ SCH (21:32)
[2022-07-20] MEDS: SUCRALFATE 1 GM/10 ML UDC PO SCH (21:32)
[2022-07-21] MEDS: ONDANSETRON INJ 2 MG/ML 2 ML VIAL IV PRN (08:11)
[2022-07-21] MEDS: THIAMINE HCL 100 MG TAB PO SCH (08:13)
[2022-07-21] MEDS: lamoTRIgine 100 MG TAB PO SCH ×2 (08:13→20:01)
[2022-07-21] MEDS: PANTOprazole 40 MG TAB PO SCH ×2 (08:13→20:02)
[2022-07-21] MEDS: SUCRALFATE 1 GM/10 ML UDC PO SCH ×4 (08:13→20:00)
[2022-07-21] MEDS: PANCREAZE (LIPASE 10,500U) CAP PO SCH ×3 (08:13→16:16)
[2022-07-21] MEDS: CYANOCOBALAMIN (B-12) 500 MCG TABLET PO SCH (08:13)
[2022-07-21] MEDS: FOLIC ACID 1 MG TAB PO SCH (08:13)
[2022-07-21] MEDS: POTASSIUM CHLORIDE 20 MEQ/15 ML UDC PO SCH (08:13)
[2022-07-21] MEDS: NICOTINE 14 MG/24 HR PATCH TD SCH (08:14)
[2022-07-21] MEDS: SERTRALINE HCL 100 MG TABLET PO SCH (08:39)
--- NOTE | 2022-07-21 12:20 | Hospitalist Progress Note ---
Date of Service July 21, 2022 Assessment & Plan (1) Acute on chronic pancreatitis: Plan: CT AP on 07/15 showed evidence favoring pancreatitis and also large calculus within the pancreatic duct within the pancreatic head, just proximal to the ampulla measuring 1.3 x 0.6 cm with mild pancreatic ductal dilation. CDS queries: SIRS of non-infectious origin due to pancreatitis. Also malnutrition as a result of his chronic pancreatitis. - S/p ERCP on 07/16 with large gallbladder stone removed. Biliary sphincterectomy and stent placed to be removed in 3 months. - Tolerated clear liquid after surgery; advanced to full liquids on 07/17, and low-fat by 07/19. - Pain control with Toradol and morphine PRN - Added on Creon on 07/19. He is getting very full immediately after a few bites. I do wonder if some of this is chronic malabsorption? No improvement. Reached out to GI re: further testing or treatment options and added carafate on 07/20. Possibly some dysmotility? Will trial Reglan as gastric emptying studies only happen on Sunday now. (2) GERD without esophagitis: Plan: CT a/p on 07/15 noted esophagitis and gastritis. ERCP on 07/16 didn't overtly comment on the stomach or esophagitis other than "grossly normal." - PPI PO BID (3) Pancreatic duct obstruction: Plan: S/p ERCP as above (4) Alcohol use disorder: Plan: Previously reports history of drinking 1/5 of alcohol over the course of week, but last drink was 1 week ago. Patient denies any seizures or other withdrawal signs such as diaphoresis, palpitations, agitation. - Supplement thiamine and folate while admitted. Continue B12 supplement. - Recommend continued alcohol abstinence. - AWSS at risk protocol. Patient is 7 days out from last drink. 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 (5) Seizure disorder: Plan: He follows with a neurologist in [place]. Possibly has a seizure disorder in addition to several alcohol-related seizures per prior neuro notes. - Continue Lamictal. - Neurology consulted on admission in the beginning of the year, EEG: Borderline abnormal awake/drowsy EEG with evidence of mild generalized and left temporal/left parietal slowing. No epileptiform abnormalities. - Seizure precautions ordered. (6) COPD (chronic obstructive pulmonary disease): Plan: No evidence of exacerbation today. - Continue home inhalers. Plan VTE ppx: Lovenox 40 mg SQ daily Admission and Anticipated Discharge Date Admission Date: July 15, 2022 Subjective Maybe feeling some better today at first, but then had emesis and was not able to eat after that. Abdominal pain no change. Physical Exam Constitutional: WD/WN, vitals as above Eyes: EOM intact bilaterally; no conjunctival abnormality ENMT: external ear and nose normal, oropharynx normal Neck: trachea midline, no thyromegaly normal visual inspection Respiratory: normal respiratory effort, lungs clear to auscultation no respiratory distress Cardiovascular: RRR, no murmur, no edema Gastrointestinal (Abdomen): Inspection/Auscultation: abdomen normal to inspection; abdomen not distended Percussion/Palpation: + abdomen tender (Epigastric area) and abdomen soft; no guarding and abdomen not rigid Musculoskeletal: no cyanosis or clubbing, extremities motor strength 5/5 Skin: no rashes, warm and dry Neurologic: moves all extremities and awake Psychiatric: Orientation: alert, oriented to person and cooperative Results & Data Results & Data ([facility]) Vital Signs (Past 12 Hours) Vital Signs Temp Pulse Resp BP Pulse Ox O2 Del Method 07/21/22 08:00 Room Air 07/21/22 08:00 36.9 C 95 H 20 143/81 H 91 Room Air PG Care Time/CCT Total # of Minutes Spent Total Time Spent with Patient: Total time spent is greater than 50% in coordination of care (as documented) at patient's floor/unit and/or counseling patient: Coding Level of Care Code 24293 Subseq Hosp Care Lvl 3 Diagnoses Acute on chronic pancreatitis K85.90; K86.1 GERD without esophagitis K21.9 Pancreatic duct obstruction K86.89 Alcohol use disorder F19.90 Seizure disorder G40.909 COPD (chronic obstructive pulmonary disease) J44.9
--- NOTE | 2022-07-21 14:20 | XRay Report ---
KUB HISTORY: Ongoing abdominal pain, nausea. Assess for small bowel obstruction. COMPARISON: Abdomen and pelvis CT 07/15/2022. KUB 08/09/2021. FINDINGS: The bowel gas pattern is unremarkable. There are no dilated loops of small bowel to suggest an obstruction. No renal calculi. No ureteral calculi. No pneumoperitoneum or pneumatosis. Common b ile duct and main pancreatic duct stents are likely in good position. IMPRESSION: 1. No evidence for bowel obstruction. 2. The common bile duct and main pancreatic duct stents appear in good position. ACT 112: Negative or not required by law. Electronically signed by: Deandre Ko M.D. 07/21/2022 2:19 PM
--- NOTE | 2022-07-21 14:47 | Electrocardiogram Report ---
Test Reason : Blood Pressure : / mmHG Vent. Rate : 090 BPM Atrial Rate : 090 BPM P-R Int : 126 ms QRS Dur : 080 ms QT Int : 390 ms P-R-T Axes : 070 069 063 degrees QTc Int : 477 ms Normal sinus rhythm Normal ECG When compared with ECG of 15-JUL-2022 14:12, No significant change was found Confirmed by Eduardo Louis ([id number]) on 07/21/2022 2:46:50 PM Referred By: REFERRED SELF Confirmed By:Eduardo Louis
[2022-07-21 15:05] LABS: Hematocrit (blood only) 30.2 % (40.1-51.0); Hemoglobin 11.4 g/dl (14.0-18.0); Mean Corpuscular Hemoglobin 37.5 pg (25.0-34.0); Mean Corpuscular Hgb Conc 37.7 g/dL (32.0-36.0); Mean Corpuscular Volume 99.3 fL (80.0-100.0); Mean Platelet Volume 10.6 fL (9.4-12.4); Platelet Count 270 K/uL (130-400); RDW Coefficient of Variation 15.1 % (11.5-14.5); RDW Standard Deviation 55.3 fL (36.4-46.3); Red Blood Count 3.04 M/uL (4.63-6.08); White Blood Count 15.63 K/ul (4.8-10.8)
[2022-07-21 15:13] LABS: Base Excess VBG 1.5 mEq/L; HCO3 VBG 26 mmol/L; Oxygen Saturation VBG 88.3 %; PCO2 VBG 39 mmHg (38-50); PO2 VBG 53 mmHg; pH VBG 7.43 (7.36-7.41)
--- NOTE | 2022-07-21 15:21 | XRay Report ---
XR chest 1V portable CLINICAL HISTORY: Hypoxemia. COMPARISON STUDY: Chest CT May 31, 2021. Chest radiograph August 07, 2021. FINDINGS: Postoperative findings within the spine are incidentally noted. There is no pneumothorax. N o definite pleural effusion is present. Bibasilar opacities have developed. Subtle interstitial thick ening within the right lung is present. Cardiac size is normal. Mediastinal contours are normal. IMPRESSION: 1. Interval development of bibasilar opacities. This may reflect pneumonia or aspiration pneumonitis. Atelectasis could appear similar. 2. Asymmetric right lung interstitial thickening which may also be infectious. Asymmetric pulmonary e david is considered less likely. ACT 112: Negative or not required by law. Electronically signed by: Lakhwinder Arias M.D. 07/21/2022 3:20 PM
[2022-07-21 15:27] LABS: Alanine Aminotransferase 30 U/L (7-52); Albumin Level 2.7 gm/dl (3.4-5.0); Alkaline Phosphatase 108 U/L (34-104); Anion Gap 9 (3-11); Aspartate Aminotransferase 37 U/L (13-39); BUN Creatinine Ratio 18.2 (10-20); Bilirubin,Total 1.5 mg/dl (0.2-1.0); Blood Urea Nitrogen 6 mg/dl (6-23); Calcium 7.6 mg/dl (8.5-10.1); Carbon Dioxide 25 mmol/L (21-32); Chloride 102 mmol/L (98-107); Creatinine Clr Calc Pharmacy 232.1 ml/min; Est GFR (African American) > 150.0 ml/min; Est GFR (Non-African American) 137.8 ml/min; Globulin 2.7 gm/dl (2.5-4.0); Glucose 78 mg/dl (70-99(Fasting)); Magnesium 1.6 mg/dl (1.7-2.4); Potassium 3.8 mmol/L (3.5-5.1); Sodium 136 mmol/L (136-145); Total Protein 5.4 gm/dl (6.0-8.3)
[2022-07-21] MEDS ORDERED: ALBUT/IPRATROP 3MG/0.5MG NEB 3 ML VIAL NEB PRN (15:27)
[2022-07-21] MEDS ORDERED: FUROSEMIDE INJ 20 MG/2 ML VIAL IV ONE (15:27)
[2022-07-21] MEDS ORDERED: ALBUT/IPRATROP 3MG/0.5MG NEB 3 ML VIAL NEB STA (15:27)
[2022-07-21] MEDS: METOCLOPRAMIDE HCL 5 MG TABLET PO SCH (16:15)
[2022-07-21 17:22] LABS: Influenza A virus by PCR Negative (Neg); Influenza B virus by PCR Negative (Neg); RSV by PCR Negative (Neg); SARS CoV2 RNA(COVID-19) Ceph NEGATIVE (Negative)
[2022-07-21] MEDS: ENOXAPARIN INJ 40 MG/0.4 ML SYR SQ SCH (20:00)
[2022-07-22 07:08] LABS: Hematocrit (blood only) 27.9 % (40.1-51.0); Hemoglobin 10.4 g/dl (14.0-18.0); Mean Corpuscular Hemoglobin 37.3 pg (25.0-34.0); Mean Corpuscular Hgb Conc 37.3 g/dL (32.0-36.0); Mean Platelet Volume 10.5 fL (9.4-12.4); Platelet Count 301 K/uL (130-400); RDW Coefficient of Variation 15.1 % (11.5-14.5); RDW Standard Deviation 56.3 fL (36.4-46.3); Red Blood Count 2.79 M/uL (4.63-6.08); White Blood Count 15.25 K/ul (4.8-10.8)
[2022-07-22 07:37] LABS: Alanine Aminotransferase 25 U/L (7-52); Albumin Globulin Ratio 1.1 (0.9-2); Albumin Level 2.6 gm/dl (3.4-5.0); Alkaline Phosphatase 101 U/L (34-104); Anion Gap 9 (3-11); Aspartate Aminotransferase 33 U/L (13-39); BUN Creatinine Ratio 18.2 (10-20); Bilirubin,Total 1.3 mg/dl (0.2-1.0); Blood Urea Nitrogen 6 mg/dl (6-23); Calcium 7.4 mg/dl (8.5-10.1); Carbon Dioxide 26 mmol/L (21-32); Chloride 101 mmol/L (98-107); Creatinine Clr Calc Pharmacy 225.9 ml/min; Est GFR (African American) > 150.0 ml/min; Est GFR (Non-African American) 137.8 ml/min; Globulin 2.4 gm/dl (2.5-4.0); Glucose 69 mg/dl (70-99(Fasting)); Magnesium 1.6 mg/dl (1.7-2.4); Potassium 3.5 mmol/L (3.5-5.1); Sodium 136 mmol/L (136-145)
[2022-07-22] MEDS: PANTOprazole 40 MG TAB PO SCH ×2 (09:48→19:35)
[2022-07-22] MEDS: SERTRALINE HCL 100 MG TABLET PO SCH (09:48)
[2022-07-22] MEDS: lamoTRIgine 100 MG TAB PO SCH ×2 (09:48→19:37)
[2022-07-22] MEDS: METOCLOPRAMIDE HCL 5 MG TABLET PO SCH ×3 (09:48→17:31)
[2022-07-22] MEDS: PANCREAZE (LIPASE 10,500U) CAP PO SCH ×3 (09:48→17:31)
[2022-07-22] MEDS: CYANOCOBALAMIN (B-12) 500 MCG TABLET PO SCH (09:48)
[2022-07-22] MEDS: THIAMINE HCL 100 MG TAB PO SCH (09:48)
[2022-07-22] MEDS: FOLIC ACID 1 MG TAB PO SCH (09:49)
[2022-07-22] MEDS: SUCRALFATE 1 GM/10 ML UDC PO SCH ×4 (09:49→19:35)
[2022-07-22] MEDS: NICOTINE 14 MG/24 HR PATCH TD SCH (09:50)
--- NOTE | 2022-07-22 16:26 | Hospitalist Progress Note ---
Date of Service July 22, 2022 Assessment & Plan (1) Acute on chronic pancreatitis: Plan: CT AP on 07/15 showed evidence favoring pancreatitis and also large calculus within the pancreatic duct within the pancreatic head, just proximal to the ampulla measuring 1.3 x 0.6 cm with mild pancreatic ductal dilation. CDS queries: SIRS of non-infectious origin due to pancreatitis. Also malnutrition as a result of his chronic pancreatitis. - S/p ERCP on 07/16 with large gallbladder stone removed. Biliary sphincterectomy and stent placed to be removed in 3 months. - Tolerated clear liquid after surgery; advanced to full liquids on 07/17, and low-fat by 07/19. - Pain control with Toradol and morphine PRN - Added on Creon on 07/19. He is getting very full immediately after a few bites. I do wonder if some of this is chronic malabsorption? No improvement. Reached out to GI re: further testing or treatment options and added carafate on 07/20. Possibly some dysmotility? Trialed Reglan as gastric emptying studies only happen on Sunday now. Does not seem to have helped, though only given 4 doses so far. (2) Hypoxemia: Plan: Hypoxemia and subjective shortness of breath on 07/21. Thought possibly fluid overloaded as he had >23L of fluid for his pancreatitis. - S/p Lasix 20 mg IV x 1 on 07/22 with improvement in shortness of breath. - Given elevated WBC and CXR findings, will treat for PNA, though I am not certain of diagnosis. (3) GERD without esophagitis: Plan: CT a/p on 07/15 noted esophagitis and gastritis. ERCP on 07/16 didn't overtly comment on the stomach or esophagitis other than "grossly normal." - PPI PO BID (4) Pancreatic duct obstruction: Plan: S/p ERCP as above (5) Alcohol use disorder: Plan: Previously reports history of drinking 1/5 of alcohol over the course of week, but last drink was 1 week ago. Patient denies any seizures or other withdrawal signs such as diaphoresis, palpitations, agitation. - Supplement thiamine and folate while admitted. Continue B12 supplement. - Recommend continued alcohol abstinence. - AWSS at risk protocol. Patient is 7 days out from last drink. 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 (6) Seizure disorder: Plan: He follows with a neurologist in [place]. Possibly has a seizure disorder in addition to several alcohol-related seizures per prior neuro notes. - Continue Lamictal. - Neurology consulted on admission in the beginning of the year, EEG: Borderline abnormal awake/drowsy EEG with evidence of mild generalized and left temporal/left parietal slowing. No epileptiform abnormalities. - Seizure precautions ordered. (7) COPD (chronic obstructive pulmonary disease): Plan: No evidence of exacerbation today. - Continue home inhalers. Plan VTE ppx: Lovenox 40 mg SQ daily Admission and Anticipated Discharge Date Admission Date: July 15, 2022 Subjective No better today. Still feels he has no appetite. Overall, not improved at all. Physical Exam Constitutional: WD/WN, vitals as above Eyes: EOM intact bilaterally; no conjunctival abnormality ENMT: external ear and nose normal, oropharynx normal Neck: trachea midline, no thyromegaly normal visual inspection Respiratory: normal respiratory effort, lungs clear to auscultation no respiratory distress Cardiovascular: RRR, no murmur, no edema Gastrointestinal (Abdomen): Inspection/Auscultation: abdomen normal to ins pection; abdomen not distended Percussion/Palpation: + abdomen tender (Epigastric area) and abdomen soft; no guarding and abdomen not rigid Musculoskeletal: no cyanosis or clubbing, extremities motor strength 5/5 Skin: no rashes, warm and dry Neurologic: moves all extremities and awake Psychiatric: Orientation: alert, oriented to person and cooperative Results & Data Results & Data ([facility]) Vital Signs (Past 12 Hours) Vital Signs Temp Pulse Resp BP Pulse Ox O2 Del Method O2 Flow Rate 07/22/22 15:57 36.8 C 86 16 144/75 H 99 Room Air 07/22/22 10:44 Nasal Cannula 2 07/22/22 08:25 36.8 C 88 16 142/76 H 98 Nasal Cannula 2.5 PG Care Time/CCT Total # of Minutes Spent Total Time Spent with Patient: Total time spent is greater than 50% in coordination of care (as documented) at patient's floor/unit and/or counseling patient: Coding Level of Care Code 52389 Subseq Hosp Care Lvl 3 Diagnoses Acute on chronic pancreatitis K85.90; K86.1 Hypoxemia R09.02 GERD without esophagitis K21.9 Pancreatic duct obstruction K86.89 Alcohol use disorder F19.90 Seizure disorder G40.909 COPD (chronic obstructive pulmonary disease) J44.9
[2022-07-22] MEDS: ENOXAPARIN INJ 40 MG/0.4 ML SYR SQ SCH (19:36)
[2022-07-22] MEDS: CEFDINIR 300 MG CAP PO SCH (20:11)
[2022-07-22] MEDS: DOXYCYCLINE HYCLATE 100 MG CAP PO SCH (20:11)
[2022-07-23 07:21] LABS: Hematocrit (blood only) 28.5 % (40.1-51.0); Hemoglobin 10.3 g/dl (14.0-18.0); Mean Corpuscular Hemoglobin 37.2 pg (25.0-34.0); Mean Corpuscular Hgb Conc 36.1 g/dL (32.0-36.0); Mean Corpuscular Volume 102.9 fL (80.0-100.0); Platelet Count 352 K/uL (130-400); RDW Coefficient of Variation 14.9 % (11.5-14.5); RDW Standard Deviation 56.4 fL (36.4-46.3); Red Blood Count 2.77 M/uL (4.63-6.08); White Blood Count 13.57 K/ul (4.8-10.8)
[2022-07-23 07:40] LABS: Alanine Aminotransferase 24 U/L (7-52); Albumin Level 2.6 gm/dl (3.4-5.0); Alkaline Phosphatase 99 U/L (34-104); Anion Gap 10 (3-11); Aspartate Aminotransferase 30 U/L (13-39); BUN Creatinine Ratio 20.7 (10-20); Bilirubin,Total 1.3 mg/dl (0.2-1.0); Blood Urea Nitrogen 6 mg/dl (6-23); Calcium 7.6 mg/dl (8.5-10.1); Carbon Dioxide 26 mmol/L (21-32); Chloride 100 mmol/L (98-107); Est GFR (African American) > 150.0 ml/min; Est GFR (Non-African American) 145.3 ml/min; Globulin 2.6 gm/dl (2.5-4.0); Glucose 73 mg/dl (70-99(Fasting)); Magnesium 1.5 mg/dl (1.7-2.4); Potassium 3.4 mmol/L (3.5-5.1); Sodium 136 mmol/L (136-145); Total Protein 5.2 gm/dl (6.0-8.3)
[2022-07-23] MEDS: DOXYCYCLINE HYCLATE 100 MG CAP PO SCH ×2 (08:49→19:52)
[2022-07-23] MEDS: SUCRALFATE 1 GM/10 ML UDC PO SCH ×4 (08:49→19:53)
[2022-07-23] MEDS: METOCLOPRAMIDE HCL 5 MG TABLET PO SCH ×3 (08:50→16:31)
[2022-07-23] MEDS: SERTRALINE HCL 100 MG TABLET PO SCH (08:50)
[2022-07-23] MEDS: PANTOprazole 40 MG TAB PO SCH ×2 (08:50→19:52)
[2022-07-23] MEDS: PANCREAZE (LIPASE 10,500U) CAP PO SCH ×3 (08:50→16:31)
[2022-07-23] MEDS: lamoTRIgine 100 MG TAB PO SCH ×2 (08:50→19:52)
[2022-07-23] MEDS: FOLIC ACID 1 MG TAB PO SCH (08:50)
[2022-07-23] MEDS: CEFDINIR 300 MG CAP PO SCH ×2 (08:50→19:52)
[2022-07-23] MEDS: CYANOCOBALAMIN (B-12) 500 MCG TABLET PO SCH (08:50)
[2022-07-23] MEDS: THIAMINE HCL 100 MG TAB PO SCH (08:50)
[2022-07-23] MEDS: NICOTINE 14 MG/24 HR PATCH TD SCH (08:52)
[2022-07-23] MEDS: MAGNESIUM SULFATE / D5W 1 GM/100 ML BAG IV SCH ×2 (09:05→10:53)
--- NOTE | 2022-07-23 18:04 | Hospitalist Progress Note ---
Date of Service July 23, 2022 Assessment & Plan (1) Acute on chronic pancreatitis: Plan: CT AP on 07/15 showed evidence favoring pancreatitis and also large calculus within the pancreatic duct within the pancreatic head, just proximal to the ampulla measuring 1.3 x 0.6 cm with mild pancreatic ductal dilation. CDS queries: SIRS of non-infectious origin due to pancreatitis. Also malnutrition as a result of his chronic pancreatitis. - S/p ERCP on 07/16 with large gallbladder stone removed. Biliary sphincterectomy and stent placed to be removed in 3 months. - Tolerated clear liquid after surgery; advanced to full liquids on 07/17, and low-fat by 07/19. - Pain control with Toradol and morphine PRN - Added on Creon on 07/19. He is getting very full immediately after a few bites. I do wonder if some of this is chronic malabsorption? No improvement. Reached out to GI re: further testing or treatment options and added Carafate on 07/20. Possibly some dysmotility? Trialed Reglan as gastric emptying studies only happen on Sunday now. Does seem to have helped with emesis, but he still complains of lack of appetite. -> Seen by [facility]OWER on 07/23 for "swallow" issues, but I think he's kind of conflating appetite and swallowing. No swallow concerns. (2) Hypoxemia: Plan: Hypoxemia and subjective shortness of breath on 07/21. Thought possibly fluid overloaded as he had >23L of fluid for his pancreatitis. - S/p Lasix 20 mg IV x 1 on 07/22 with improvement in shortness of breath. - Given elevated WBC and CXR findings, will treat for PNA, though I am not certain of diagnosis. Augmentin & doxycycline x 5 days. (3) GERD without esophagitis: Plan: CT a/p on 07/15 noted esophagitis and gastritis. ERCP on 07/16 didn't overtly comment on the stomach or esophagitis other than "grossly normal." - PPI PO BID (4) Pancreatic duct obstruction: Plan: S/p ERCP as above (5) Alcohol use disorder: Plan: Previously reports history of drinking 1/5 of alcohol over the course of week, but last drink was 1 week ago. Patient denies any seizures or other withdrawal signs such as diaphoresis, palpitations, agitation. - Supplement thiamine and folate while admitted. Continue B12 supplement. - Recommend continued alcohol abstinence. - AWSS at risk protocol. Patient is 7 days out from last drink. 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 (6) Seizure disorder: Plan: He follows with a neurologist in [place]. Possibly has a seizure disorder in addition to several alcohol-related seizures per prior neuro notes. - Continue Lamictal. - Neurology consulted on admission in the beginning of the year, EEG: Borderline abnormal awake/drowsy EEG with evidence of mild generalized and left temporal/left parietal slowing. No epileptiform abnormalities. - Seizure precautions ordered. (7) COPD (chronic obstructive pulmonary disease): Plan: No evidence of exacerbation today. - Continue home inhalers. Plan VTE ppx: Lovenox 40 mg SQ daily Admission and Anticipated Discharge Date Admission Date: July 15, 2022 Subjective No better today. Still feels he has no appetite. Overall, not improved at all. Today he mentions more "swallowing" issues. Points at his throat. Physical Exam 2 Constitutional: WD/WN, vitals as above Eyes: EOM intact bilaterally; no conjunctival abnormality ENMT: external ear and nose normal, oropharynx normal Neck: trachea midline, no thyromegaly normal visual inspection Respiratory: normal respiratory effort, lungs clear to auscultation no respiratory distress Cardiovascular: RRR, no murmur, no edema Gastrointestinal (Abdomen): Inspection/Auscultation: abdomen normal to inspection; abdomen not distended Percussion/Palpation: + abdomen tender (Epigastric area) and abdomen soft; no guarding and abdomen not rigid Musculoskeletal: no cyanosis or clubbing, extremities motor strength 5/5 Skin: no rashes, warm and dry Neurologic: moves all extremities and awake Psychiatric: Orientation: alert, oriented to person and cooperative Results & Data Results & Data ([facility]) Vital Signs (Past 12 Hours) Vital Signs Temp Pulse Resp BP Pulse Ox O2 Del Method O2 Flow Rate 07/23/22 15:33 36.9 C 82 16 137/79 99 Nasal Cannula 2 07/23/22 07:41 Nasal Cannula 2 07/23/22 07:36 36.7 C 86 16 126/67 97 Nasal Cannula 2 PG Care Time/CCT Total # of Minutes Spent Total Time Spent with Patient: Total time spent is greater than 50% in coordination of care (as documented) at patient's floor/unit and/or counseling patient: Coding Level of Care Code 82371 Subseq Hosp Care Lvl 3 Diagnoses Acute on chronic pancreatitis K85.90; K86.1 Hypoxemia R09.02 GERD without esophagitis K21.9 Pancreatic duct obstruction K86.89 Alcohol use disorder F19.90 Seizure disorder G40.909 COPD (chronic obstructive pulmonary disease) J44.9
[2022-07-23] MEDS: ENOXAPARIN INJ 40 MG/0.4 ML SYR SQ SCH (19:52)
[2022-07-24 07:47] LABS: Basophils # (auto) 0.04 K/uL (0-0.2); Basophils % (auto) 0.3 %; Eosinophils # (auto) 0.17 K/uL (0-0.50); Eosinophils % (auto) 1.4 %; Hematocrit (blood only) 27.7 % (40.1-51.0); Hemoglobin 10.3 g/dl (14.0-18.0); Immature Granulocytes # (auto) 0.14 K/uL (0.00-0.02); Immature Granulocytes % (auto) 1.2 %; Lymphocytes # (auto) 1.58 K/uL (1.2-3.4); Lymphocytes % (auto) 13.4 %; Mean Corpuscular Hemoglobin 37.5 pg (25.0-34.0); Mean Corpuscular Hgb Conc 37.2 g/dL (32.0-36.0); Mean Corpuscular Volume 100.7 fL (80.0-100.0); Mean Platelet Volume 9.8 fL (9.4-12.4); Monocytes % (auto) 18.7 %; Neutrophils # (auto) 7.63 K/uL (1.4-6.5); Platelet Count 388 K/uL (130-400); RDW Coefficient of Variation 14.9 % (11.5-14.5); RDW Standard Deviation 54.9 fL (36.4-46.3); Red Blood Count 2.75 M/uL (4.63-6.08); White Blood Count 11.76 K/ul (4.8-10.8)
[2022-07-24 08:09] LABS: Alanine Aminotransferase 22 U/L (7-52); Albumin Globulin Ratio 0.9 (0.9-2); Albumin Level 2.5 gm/dl (3.4-5.0); Alkaline Phosphatase 90 U/L (34-104); Anion Gap 7 (3-11); Aspartate Aminotransferase 27 U/L (13-39); BUN Creatinine Ratio 14.8 (10-20); Blood Urea Nitrogen 4 mg/dl (6-23); Calcium 7.6 mg/dl (8.5-10.1); Carbon Dioxide 30 mmol/L (21-32); Chloride 101 mmol/L (98-107); Creatinine Clr Calc Pharmacy 272.8 ml/min; Est GFR (African American) > 150.0 ml/min; Est GFR (Non-African American) 149.6 ml/min; Globulin 2.7 gm/dl (2.5-4.0); Glucose 74 mg/dl (70-99(Fasting)); Potassium 3.2 mmol/L (3.5-5.1); Sodium 138 mmol/L (136-145); Total Protein 5.2 gm/dl (6.0-8.3)
[2022-07-24] MEDS: NICOTINE 14 MG/24 HR PATCH TD SCH (08:33)
[2022-07-24] MEDS: CEFDINIR 300 MG CAP PO SCH (08:33)
[2022-07-24] MEDS: DOXYCYCLINE HYCLATE 100 MG CAP PO SCH ×2 (08:33→20:30)
[2022-07-24] MEDS: PANTOprazole 40 MG TAB PO SCH ×2 (08:33→20:29)
[2022-07-24] MEDS: THIAMINE HCL 100 MG TAB PO SCH (08:33)
[2022-07-24] MEDS: lamoTRIgine 100 MG TAB PO SCH ×2 (08:33→20:30)
[2022-07-24] MEDS: SUCRALFATE 1 GM/10 ML UDC PO SCH ×4 (08:33→20:31)
[2022-07-24] MEDS: FOLIC ACID 1 MG TAB PO SCH (08:34)
[2022-07-24] MEDS: METOCLOPRAMIDE HCL 5 MG TABLET PO SCH ×3 (08:34→17:33)
[2022-07-24] MEDS: SERTRALINE HCL 100 MG TABLET PO SCH (08:34)
[2022-07-24] MEDS: PANCREAZE (LIPASE 10,500U) CAP PO SCH ×3 (08:34→17:33)
[2022-07-24] MEDS: CYANOCOBALAMIN (B-12) 500 MCG TABLET PO SCH (08:35)
[2022-07-24] MEDS ORDERED: POTASSIUM CHLORIDE / WTR 10 MEQ/100 ML PLCT IV ONE (10:30)
[2022-07-24] MEDS: POTASSIUM CHLORIDE CRTAB 20 MEQ TABCR PO SCH ×3 (11:59→20:30)
--- NOTE | 2022-07-24 15:05 | Hospitalist Progress Note ---
Date of Service July 24, 2022 Assessment & Plan (1) Acute on chronic pancreatitis: Plan: CT AP on 07/15 showed evidence favoring pancreatitis and also large calculus within the pancreatic duct within the pancreatic head, just proximal to the ampulla measuring 1.3 x 0.6 cm with mild pancreatic ductal dilation. CDS queries: SIRS of non-infectious origin due to pancreatitis. Also malnutrition as a result of his chronic pancreatitis. - S/p ERCP on 07/16 with large gallbladder stone removed. Biliary sphincterectomy and stent placed to be removed in 3 months. - Tolerated clear liquid after surgery; advanced to full liquids on 07/17, and low-fat by 07/19. however, appetite is poor, and he seems to have dysphagia (points to his throat). seen by speech - swallowing dysfunction not felt to be present. Most recent lipase level on 07/19 was wnl. Peak lipase was 343. Cont creon. (2) Pneumonia: Plan: b/l broaden augmentin to cefepime cont doxycycline for atpyical coverage add mucinex BID (3) Dysphagia: Plan: etiology? recent EGD with normal esophagus recent speech therapy consult - felt there are no signs of aspiration (4) Hypoxemia: Plan: 2nd to pneumonia, possibly aspiration, due to complaint of dysphagia. he has made little improvement on augmentin/doxy. broaden the augmentin to cefepime IV. cont doxy. check a repeat COVID test. (5) GERD without esophagitis: Plan: CT a/p on 07/15 noted esophagitis and gastritis. ERCP on 07/16 didn't overtly comment on the stomach or esophagitis other than "grossly normal." Cont PPI twice daily Cont carafate qid (6) Pancreatic duct obstruction: Plan: S/p ERCP as above in #1 (7) Alcohol use disorder: Plan: No signs of etoh withdrawal at this time Cont thiamine, folate, and b12 supplementation (8) Seizure disorder: Plan: He follows with a neurologist in [place]. Possibly has a seizure disorder in addition to several alcohol-related seizures per prior neuro notes. - Continue Lamictal. - Neurology consulted on admission in the beginning of the year, EEG: Borderline abnormal awake/drowsy EEG with evidence of mild generalized and left temporal/left parietal slowing. No epileptiform abnormalities. - Seizure precautions (9) COPD (chronic obstructive pulmonary disease): Plan: probable mild exacerbation in setting of pneumonia start dexamethasone 6mg IV daily use bronchodilators scheduled (10) Calculus of pancreatic duct: Plan: s/p ERCP with stent deployment (11) DVT prophylaxis: Plan: lovenox daily (12) Hypokalemia: Plan: replace, repeat level am mag level today wnl (13) Tobacco dependence: Plan: cont nicoderm 14mg/day Plan PT, OT when able Admission and Anticipated Discharge Date Admission Date: July 15, 2022 Subjective patient states he had diffuse body aches about 2-3 days ago cough/congestion/wheezing started shortly after that myalgias now improved he continues to have poor appetite c/o throat pain and difficulty swallow also c/o abdominal pain Review of Systems Review of Systems: gen - tired, fatigued cv - no cp pulm - cough, wheeze GI - no N/V Physical Exam Physical Exam: gen - thin, NAD mouth - MMM, no lesions, no thrush neck - cyst right anterior neck (submental area on R); no JVD heart - RRR, s1 s2 lungs - b/l wheezes, b/l rales bases abd - soft, mild tenderness epigastric region, BS+ ext - no edema, pulses 2+ b/l skin - pallor Results & Data Results & Data ([facility]) Vital Signs (Past 12 Hours) Vital Signs Temp Pulse Resp BP Pulse Ox O2 Del Method O2 Flow Rate 07/24/22 08:30 Nasal Cannula 1 07/24/22 07:14 36.8 C 96 H 18 142/73 H 98 Nasal Cannula 2.5 Laboratory Results Laboratory Results - last 24 hr 07/24/22 07/24/22 07/24/22 07:04 07:04 07:04 WBC 11.76 H RBC 2.75 L Hgb 10.3 L Hct 27.7 L MCV 100.7 H MCH 37.5 H MCHC 37.2 H RDW Std Deviation 54.9 H RDW Coeff of Brianda 14.9 H Plt Count 388 MPV 9.8 Immature Gran % (Auto) 1.2 Neut % (Auto) 65.0 Lymph % (Auto) 13.4 [place] % (Auto) 18.7 Eos % (Auto) 1.4 Baso % (Auto) 0.3 Neut # (Auto) 7.63 H Lymph # (Auto) 1.58 [place] # (Auto) 2.20 H Eos # (Auto) 0.17 Baso # (Auto) 0.04 Immature Gran # (Auto) 0.14 H Sodium 138 Potassium 3.2 L Chloride 101 Carbon Dioxide 30 Anion Gap 7 BUN 4 L Creatinine 0.27 L Est Cr Clr Drug Dosing 272.8 Est GFR ( Amer) > 150.0 Est GFR (Non-Af Amer) 149.6 BUN/Creatinine Ratio 14.8 Glucose 74 Calcium 7.6 L Magnesium 1.7 Total Bilirubin 1.0 AST 27 ALT 22 Alkaline Phosphatase 90 Total Protein 5.2 L Albumin 2.5 L Globulin 2.7 Albumin/Globulin Ratio 0.9 PG Care Time/CCT Total # of Minutes Spent Total Time Spent with Patient: Total time spent is greater than 50% in coordination of care (as documented) at patient's floor/unit and/or counseling patient: Coding Level of Care Code 75881 Subseq Hosp Care Lvl 2 Diagnoses Acute on chronic pancreatitis K85.90; K86.1 Pneumonia J18.9 Dysphagia R13.10 Hypoxemia R09.02 GERD without esophagitis K21.9 Pancreatic duct obstruction K86.89 Alcohol use disorder F19.90 Seizure disorder G40.909 COPD (chronic obstructive pulmonary disease) J44.9 Calculus of pancreatic duct K86.89 DVT prophylaxis Z29.9 Hypokalemia E87.6 Tobacco dependence F17.200
[2022-07-24] MEDS: dexAMETHasone 6 MG in SYRINGE 0 ML IV SCH (15:32)
[2022-07-24] MEDS: ENOXAPARIN INJ 40 MG/0.4 ML SYR SQ SCH (20:30)
[2022-07-24] MEDS: guaiFENesin 600 MG TABCR PO SCH (20:56)
[2022-07-24] MEDS: CEFEPIME 2,000 MG in SYRINGE 0 ML IV SCH (20:56)
[2022-07-24] MEDS ORDERED: IPRATROPIUM BROMIDE/ALBUTEROL respimat INH INH SCH (21:00)
[2022-07-24] MEDS: IPRATROPIUM BROMIDE HFA INHALER INH SCH (22:51)
[2022-07-24] MEDS: ALBUTEROL HFA 8 GM INHALER INH SCH (22:51)
[2022-07-25] MEDS: CEFEPIME 2,000 MG in SYRINGE 0 ML IV SCH ×3 (04:56→20:08)
[2022-07-25] MEDS: SUCRALFATE 1 GM/10 ML UDC PO SCH ×4 (07:34→20:09)
[2022-07-25] MEDS: POTASSIUM CHLORIDE CRTAB 20 MEQ TABCR PO SCH (07:34)
[2022-07-25] MEDS: PANCREAZE (LIPASE 10,500U) CAP PO SCH ×3 (07:35→17:22)
[2022-07-25] MEDS: lamoTRIgine 100 MG TAB PO SCH ×2 (07:35→20:11)
[2022-07-25] MEDS: PANTOprazole 40 MG TAB PO SCH ×2 (07:35→20:11)
[2022-07-25] MEDS: METOCLOPRAMIDE HCL 5 MG TABLET PO SCH ×3 (07:36→17:22)
[2022-07-25] MEDS: DOXYCYCLINE HYCLATE 100 MG CAP PO SCH ×2 (07:37→20:11)
[2022-07-25] MEDS: NICOTINE 14 MG/24 HR PATCH TD SCH (07:37)
[2022-07-25] MEDS: FOLIC ACID 1 MG TAB PO SCH (07:37)
[2022-07-25] MEDS: CYANOCOBALAMIN (B-12) 500 MCG TABLET PO SCH (07:38)
[2022-07-25] MEDS: THIAMINE HCL 100 MG TAB PO SCH (07:38)
[2022-07-25] MEDS: SERTRALINE HCL 100 MG TABLET PO SCH (07:39)
[2022-07-25] MEDS: ALBUTEROL HFA 8 GM INHALER INH SCH (08:20)
[2022-07-25] MEDS: IPRATROPIUM BROMIDE HFA INHALER INH SCH (08:20)
[2022-07-25] MEDS: guaiFENesin 600 MG TABCR PO SCH ×2 (08:53→20:11)
[2022-07-25 09:25] LABS: Hematocrit (blood only) 29.8 % (40.1-51.0); Hemoglobin 11.1 g/dl (14.0-18.0); Mean Corpuscular Hemoglobin 36.3 pg (25.0-34.0); Mean Corpuscular Hgb Conc 37.2 g/dL (32.0-36.0); Mean Corpuscular Volume 97.4 fL (80.0-100.0); Mean Platelet Volume 9.5 fL (9.4-12.4); Platelet Count 499 K/uL (130-400); RDW Coefficient of Variation 14.7 % (11.5-14.5); RDW Standard Deviation 52.6 fL (36.4-46.3); Red Blood Count 3.06 M/uL (4.63-6.08); White Blood Count 14.34 K/ul (4.8-10.8)
[2022-07-25 10:07] LABS: Anion Gap 9 (3-11); BUN Creatinine Ratio 16.2 (10-20); Blood Urea Nitrogen 6 mg/dl (6-23); Calcium 8.3 mg/dl (8.5-10.1); Carbon Dioxide 26 mmol/L (21-32); Chloride 102 mmol/L (98-107); Creatinine Clr Calc Pharmacy 199.1 ml/min; Est GFR (African American) > 150.0 ml/min; Est GFR (Non-African American) 131.4 ml/min; Glucose 110 mg/dl (70-99(Fasting)); Potassium 3.6 mmol/L (3.5-5.1); Sodium 137 mmol/L (136-145)
[2022-07-25] MEDS: dexAMETHasone 6 MG in SYRINGE 0 ML IV SCH (14:04)
[2022-07-25] MEDS ORDERED: OPTIRAY 350 100ml IV ONE (15:45)
--- NOTE | 2022-07-25 16:08 | CT Scan Report ---
CT soft tissue neck w con CLINICAL HISTORY: dysphagia, hoarse voice; assess for neck mass, etc Technique: Axial CT images of the soft tissues of the neck were obtained following intravenous admini stration of 100 cc of Omnipaque 300. Automated dose lowering techniques and/or adjustment according t o patient size were utilized for this exam. CT DOSE: 300.21 mGy.cm Comparison: Comparison is made to CTA neck 07/22/2020 and chest radiograph 07/21/2022 Findings: There are no masses or inflammatory changes seen within the soft tissues of the neck. The oropharynx, hypopharynx, larynx, and trachea are patent. No enlarged lymph nodes are seen. The parotid glands, s ubmandibular glands, and thyroid gland are unremarkable. A 27 x 20 mm cyst is seen in the right subm andibular subcutaneous tissues. Imaged portions of the brain parenchyma are unremarkable. The paranasal sinuses and mastoid air cell s are normal in appearance. There is a moderate left and small right pleural effusion. Groundglass op acities are partially visualized in the right apex. Impression: 1. No evidence of abnormal mass in the neck apart from previously noted subcutaneous cystic lesion o n the right. 2. Moderate right and small left pleural effusion with right apical groundglass opacities, nonspecif ic but may represent aspiration/pneumonia. ACT 112: Negative or not required by law. Electronically signed by: Florencio Beckham M.D. 07/25/2022 4:06 PM
[2022-07-25] MEDS ORDERED: SODIUM CHLORIDE 0.9% 500 ML IV SCH (20:00)
[2022-07-25] MEDS: ENOXAPARIN INJ 40 MG/0.4 ML SYR SQ SCH (20:09)
--- NOTE | 2022-07-25 21:21 | Hospitalist Progress Note ---
Date of Service July 25, 2022 Assessment & Plan (1) Dysphagia: Plan: ongoing. per my physician partners as well as speech it has been challenging to tease out if his problem is one of appetite/anorexia or true dysphagia. as I listen to him more the problem seems to be less of appetite loss and more so of oropharyngeal dysphagia. he consistently points to his throat/ant neck as site of the problem. denies true odynophagia. speech saw him a few days ago and felt that his swallow mechanism was normal. his oral intake is very, very poor. in light of heavy etoh/tobacco history plan to obtain CT soft tissue neck - r/o mass causing his symptoms. if normal - consider barium swallow. change diet to minced/moist. of note - esophagus was grossly normal during his ERCP procedure past EGD in October 2020 - Moderate Schatzki ring found, this was dilated. A small hiatal hernia was also found. re-eval tomorrow give IV fluids in meantime due to very poor PO intake (2) Acute on chronic pancreatitis: Plan: CT AP on 07/15 showed evidence favoring pancreatitis and also large calculus within the pancreatic duct within the pancreatic head, just proximal to the ampulla measuring 1.3 x 0.6 cm with mild pancreatic ductal dilation. CDS queries: SIRS of non-infectious origin due to pancreatitis. Also malnutrition as a result of his chronic pancreatitis. - S/p ERCP on 07/16 with large gallbladder stone removed. Biliary sphincterectomy and stent placed to be removed in 3 months. - Tolerated clear liquid after surgery; advanced to full liquids on 07/17, and low-fat by 07/19. however, appetite is poor, and he seems to have dysphagia (points to his throat). see above. seen by speech - swallowing dysfunction not felt to be present. Most recent lipase level on 07/19 was wnl. Peak lipase was 343. Cont creon. repeat a lipase in am due to ongoing subjective complaints of abd discomfort. (3) Pneumonia: Plan: b/l broadened augmentin to cefepime on 07/24 due to ongoing leukocytosis and suspected anorexia/failure to thrive cont doxycycline for atpyical coverage added mucinex BID he had mild bronchospastic component in setting of his pneumonia -- added dexamethasone 6mg IV daily starting 07/24 repeat COVID 07/24 negative (4) Hypoxemia: Plan: 2nd to pneumonia, possibly aspiration he has made little improvement on augmentin/doxy. broadened the augmentin to cefepime IV. cont doxy. o2 sats wnl today (5) GERD without esophagitis: Plan: CT a/p on 07/15 noted esophagitis and gastritis. ERCP on 07/16 didn't overtly comment on the stomach or esophagitis other than "grossly normal." Cont PPI twice daily Cont carafate qid see above re: dysphagia (6) Pancreatic duct obstruction: Plan: S/p ERCP as above (7) Alcohol use disorder: Plan: No signs of etoh withdrawal at this time Cont thiamine, folate, and b12 supplementation Check a b12/folate level in am (8) Seizure disorder: Plan: He follows with a neurologist in [place]. Possibly has a seizure disorder in addition to several alcohol-related seizures per prior neuro notes. - Continue Lamictal. - Neurology consulted on admission in the beginning of the year, EEG: Borderline abnormal awake/drowsy EEG with evidence of mild generalized and left temporal/left parietal slowing. No epileptiform abnormalities. - Seizure precautions (9) COPD (chronic obstructive pulmonary disease): Plan: probable mild exacerbation in setting of pneumonia started dexamethasone 6mg IV daily 07/24/22 use bronchodilators scheduled (10) Calculus of pancreatic duct: Plan: s/p ERCP with stent deployment (11) DVT prophylaxis: Plan: lovenox daily (12) Hypokalemia: Plan: replaced K level wnl mag level wnl (13) Tobacco dependence: Plan: cont nicoderm 14mg/day Plan PT, OT when able Admission and Anticipated Discharge Date Admission Date: July 15, 2022 Subjective patient continues to eat <10% of meals he initially states that he "just can't eat" he will take a few bites of solids, then stop eating he points to his throat and states "it just gets stopped up" he later states "I have a really good appetite but I just stop" he has no troubles swallowing liquids but solids are the problem I had him take a few bites of mashed potatoes - he fed himself 2-3 spoonfuls and stopped; again he pointed to the back of this throat as the site where the problem is during the taking in of the mashed potatoes he did not cough, develop brassy voice, no tearing of his eyes or nose, or other signs of overt aspiration he has been a long-time smoker, and previously drank vodka heavily on a daily basis he feels he has lost weight, but current weight is higher than it was 2 years ago in 2020 continues with mild upper abdominal pain Review of Systems Review of Systems: gen - no fever cv - no chest pain, no orthopnea, no PND, no edema pulm - mild cough, no dyspnea, no significant sputum GI - ongoing upper abd pain but no nausea or emesis Physical Exam Physical Exam: gen - thin, NAD voice - mildly hoarse mouth - MMM, no lesions, no thrush neck - cyst right anterior neck (submental area on R); no JVD heart - RRR, s1 s2, no murmur lungs - b/l wheezes resolved today; mildly decreased BS bases; minimal b/l rales bases abd - soft, mild tenderness epigastric region, BS+, no HSM ext - no edema, pulses 2+ b/l skin - pallor Results & Data Results & Data ([facility]) Vital Signs (Past 12 Hours) Vital Signs Temp Pulse Resp BP Pulse Ox O2 Del Method 07/25/22 20:39 36.7 C 84 16 135/82 95 Room Air Laboratory Results Laboratory Results - last 24 hr 07/24/22 07/25/22 07/25/22 22:49 09:00 09:00 WBC 14.34 H RBC 3.06 L Hgb 11.1 L Hct 29.8 L MCV 97.4 MCH 36.3 H MCHC 37.2 H RDW Std Deviation 52.6 H RDW Coeff of Brianda 14.7 H Plt Count 499 H MPV 9.5 Sodium 137 Potassium 3.6 Chloride 102 Carbon Dioxide 26 Anion Gap 9 BUN 6 Creatinine 0.37 L Est Cr Clr Drug Dosing 199.1 Est GFR ( Amer) > 150.0 Est GFR (Non-Af Amer) 131.4 BUN/Creatinine Ratio 16.2 Glucose 110 H Calcium 8.3 L Nasal Screen MRSA (PCR) Negative PG Care Time/CCT Total # of Minutes Spent Total Time Spent with Patient: Total time spent is greater than 50% in coordination of care (as documented) at patient's floor/unit and/or counseling patient: Coding Level of Care Code 31648 Subseq Hosp Care Lvl 3 Diagnoses Dysphagia R13.10 Acute on chronic pancreatitis K85.90; K86.1 Pneumonia J18.9 Hypoxemia R09.02 GERD without esophagitis K21.9 Pancreatic duct obstruction K86.89 Alcohol use disorder F19.90 Seizure disorder G40.909 COPD (chronic obstructive pulmonary disease) J44.9 Calculus of pancreatic duct K86.89 DVT prophylaxis Z29.9 Hypokalemia E87.6 Tobacco dependence F17.200
[2022-07-26] MEDS: CEFEPIME 2,000 MG in SYRINGE 0 ML IV SCH ×3 (05:10→20:12)
[2022-07-26 07:04] LABS: Basophils # (auto) 0.01 K/uL (0-0.2); Basophils % (auto) 0.1 %; Hematocrit (blood only) 26.9 % (40.1-51.0); Hemoglobin 9.9 g/dl (14.0-18.0); Immature Granulocytes # (auto) 0.25 K/uL (0.00-0.02); Immature Granulocytes % (auto) 1.6 %; Lymphocytes # (auto) 2.44 K/uL (1.2-3.4); Lymphocytes % (auto) 15.9 %; Mean Corpuscular Hemoglobin 36.4 pg (25.0-34.0); Mean Corpuscular Hgb Conc 36.8 g/dL (32.0-36.0); Mean Corpuscular Volume 98.9 fL (80.0-100.0); Mean Platelet Volume 9.5 fL (9.4-12.4); Monocytes # (auto) 2.24 K/uL (0.24-0.82); Monocytes % (auto) 14.6 %; Neutrophils # (auto) 10.45 K/uL (1.4-6.5); Neutrophils % (auto) 67.8 %; Platelet Count 487 K/uL (130-400); RDW Coefficient of Variation 15.2 % (11.5-14.5); Red Blood Count 2.72 M/uL (4.63-6.08); White Blood Count 15.39 K/ul (4.8-10.8)
[2022-07-26 07:27] LABS: BUN Creatinine Ratio 15.4 (10-20); Calcium 7.7 mg/dl (8.5-10.1); Creatinine Clr Calc Pharmacy 188.9 ml/min; Est GFR (African American) 149.1 ml/min; Est GFR (Non-African American) 128.6 ml/min; Potassium 3.7 mmol/L (3.5-5.1)
[2022-07-26 07:40] LABS: Thyroid Stimulating Hormone 7.462 uIu/ml (0.300-4.500)
[2022-07-26 07:51] LABS: Vitamin B12 > 1500 pg/ml (180-914)
[2022-07-26 08:12] LABS: T4 Free Thyroxine 1.22 ng/dl (0.61-1.60)
--- NOTE | 2022-07-26 08:25 | Fluoroscopy Report ---
FL barium swallow CLINICAL HISTORY: severe oropharyngeal dysphagia COMPARISON STUDY: None. FLUOROSCOPY TIME: 0.7 minutes. 12 fluoroscopic spot images submitted. FINDINGS: The patient had difficulty swallowing the barium. The hypopharynx is not well visualized du e to patient positioning and condition. The esophagus appears normal in course, caliber, motility. No hiatus hernia. No gastroesophageal reflux demonstrate during the examination. IMPRESSION: 1. Suboptimal swallowing reflex. Consider follow-up video swallow for further evaluation. 2. Normal esophagus. ACT 112: Negative or not required by law. Electronically signed by: Deandre Ko M.D. 07/26/2022 8:23 AM
[2022-07-26] MEDS: lamoTRIgine 100 MG TAB PO SCH ×2 (08:40→20:13)
[2022-07-26] MEDS: PANTOprazole 40 MG TAB PO SCH ×2 (08:40→20:13)
[2022-07-26] MEDS: THIAMINE HCL 100 MG TAB PO SCH (08:41)
[2022-07-26] MEDS: guaiFENesin 600 MG TABCR PO SCH ×2 (08:41→20:13)
[2022-07-26] MEDS: FOLIC ACID 1 MG TAB PO SCH (08:41)
[2022-07-26] MEDS: DOXYCYCLINE HYCLATE 100 MG CAP PO SCH ×2 (08:41→20:12)
[2022-07-26] MEDS: NICOTINE 14 MG/24 HR PATCH TD SCH (08:45)
[2022-07-26] MEDS: SERTRALINE HCL 100 MG TABLET PO SCH (08:45)
[2022-07-26] MEDS: METOCLOPRAMIDE HCL 5 MG TABLET PO SCH ×3 (08:47→16:54)
[2022-07-26] MEDS: PANCREAZE (LIPASE 10,500U) CAP PO SCH ×3 (08:47→18:23)
[2022-07-26] MEDS: CYANOCOBALAMIN (B-12) 500 MCG TABLET PO SCH (08:48)
[2022-07-26] MEDS: SUCRALFATE 1 GM/10 ML UDC PO SCH ×4 (08:48→20:12)
[2022-07-26] MEDS: LEVOTHYROXINE SODIUM 25 MCG TABLET PO SCH (14:57)
[2022-07-26] MEDS: dexAMETHasone 6 MG in SYRINGE 0 ML IV SCH (16:23)
[2022-07-26] MEDS: D5NSS + 20MEQ KCL 20 MEQ/1,000 ML BAG IV SCH (16:52)
--- NOTE | 2022-07-26 17:37 | Fluoroscopy Report ---
FL video swallow CLINICAL HISTORY: unable to swallow TECHNIQUE: Video fluoroscopy of the pharyngeal region was performed as barium mixtures of varying con sistencies were administered to the patient by the speech pathologist. A formal esophagram was not pe rformed. Comparison: None available at the time of this dictation. FINDINGS: Total fluoroscopy time: 3.0 minutes. The patient swallowed the different barium consistencies without difficulty. There was no laryngeal v estibular penetration or florentin tracheal aspiration. Pooling of barium was noted in the bilateral piri form sinuses and valleculae. ACDF is incidentally noted. Possible cricopharyngeal bar versus narrowin g at the celiac. IMPRESSION: No evidence of aspiration. Please see the speech pathology report for further details. ACT 112: Negative or not required by law. Electronically signed by: Florencio Beckham M.D. 07/26/2022 5:36 PM
--- NOTE | 2022-07-26 19:50 | Hospitalist Progress Note ---
Date of Service July 26, 2022 Assessment & Plan (1) Dysphagia: Plan: ongoing. per my physician partners as well as speech it has been challenging to tease out if his problem is one of appetite/anorexia or true dysphagia. as I listen to him more the problem seems to be less of appetite loss and more so of oropharyngeal dysphagia. he consistently points to his throat/ant neck as site of the problem. denies true odynophagia. of note - esophagus was grossly normal during his ERCP procedure past EGD in October 2020 - Moderate Schatzki ring found, this was dilated. A small hiatal hernia was also found. due to heavy combination of etoh use and tobacco I ordered CT soft tissue neck last pm to r/o laryngeal mass, etc --- negative for such. barium swallow ordered this am - he was unable to complete it. speech reconsulted - video swallow completed - ?cricopharyngeal bar causing his dysphagia?? patient is adamant his dysphagia started after his ERCP?? uncertain why that would be so see #2 below (2) Cricopharyngeal dysphagia: Plan: video swallow today with ?cricopharyngeal bar? patient remains unable to swallow with very little PO intake will ask [facility] to see in consult tomorrow; ?need for repeat EGD? keep NPO starting at midnight pending GI re-evaluation (3) Acute on chronic pancreatitis: Plan: CT AP on 07/15 showed evidence favoring pancreatitis and also large calculus within the pancreatic duct within the pancreatic head, just proximal to the ampulla measuring 1.3 x 0.6 cm with mild pancreatic ductal dilation. CDS queries: SIRS of non-infectious origin due to pancreatitis. Also malnutrition as a result of his chronic pancreatitis. - S/p ERCP on 07/16 with large gallbladder stone removed. Biliary sphincterectomy and stent placed to be removed in 3 months. - Tolerated clear liquid after surgery; advanced to full liquids on 07/17, and low-fat by 07/19. however, appetite is poor, and he seems to have dysphagia (points to his throat). see above. seen by speech - swallowing dysfunction not felt to be present. Peak lipase was 343. Lipase today wnl. Cont creon. (4) Pneumonia: Plan: b/l; aspiration in light of #1/#2?? broadened augmentin to cefepime on 07/24 due to ongoing leukocytosis etc. cont doxycycline for atypical coverage cont mucinex BID cont dexamethasone 6mg IV daily - today is day #3 of such repeat COVID 07/24 negative (5) Hypoxemia: Plan: 2nd to pneumonia, possibly aspiration o2 sats wnl; not on supplemental O2 (6) GERD without esophagitis: Plan: CT a/p on 07/15 noted esophagitis and gastritis. ERCP on 07/16 didn't overtly comment on the stomach or esophagitis other than "grossly normal." Cont PPI twice daily Cont carafate qid see above re: dysphagia re-consult GI (7) Pancreatic duct obstruction: Plan: S/p ERCP as above (8) Alcohol use disorder: Plan: No signs of etoh withdrawal at this time Cont thiamine, folate, and b12 supplementation B12 level wnl folate low - increase folate supplementation (9) Seizure disorder: Plan: He follows with a neurologist in [place]. Possibly has a seizure disorder in addition to several alcohol-related seizures per prior neuro notes. - Continue Lamictal. - Neurology consulted on admission in the beginning of the year, EEG: Borderline abnormal awake/drowsy EEG with evidence of mild generalized and left temporal/left parietal slowing. No epileptiform abnormalities. - Seizure precautions (10) COPD (chronic obstructive pulmonary disease): Plan: probable mild exacerbation in setting of pneumonia started dexamethasone 6mg IV daily 07/24/22 cont bronchodilators (11) Calculus of pancreatic duct: Plan: s/p ERCP with stent deployment (12) DVT prophylaxis: Plan: lovenox daily (13) Hypokalemia: Plan: replaced K level wnl mag level wnl (14) Tobacco dependence: Plan: cont nicoderm 14mg/day (15) Folate deficiency: Plan: despite 1mg of folate daily level remains low increase to 2mg/day repeat level 1 month (16) Hypothyroidism: Plan: TSH 7 in light of fatigue and host of other symptoms may benefit from Rx start synthroid 25mcg daily repeat TSH 6 weeks Plan cont PT/OT appreciate speech therapy consult/recs Admission and Anticipated Discharge Date Admission Date: July 15, 2022 Subjective this am patient was unable to complete his barium swallow eval I spoke with speech therapy who then re-evaluated him at bedside and ordered video swallow video swallow with ?cricopharyngeal bar? I saw patient following his video swallow he is despondent and frustrated about his swallowing he continues with cough and intermittent dyspnea even at rest he also began having copious, foul-smelling loose stool overnight today has had multiple episodes of such no blood per rectum denies any change in baseline abdominal pain mentions he had neck surgery in the past at [facility] Review of Systems Review of Systems: gen - fatigue, weak; no fever cv - no cp pulm - no wheezing; some cough/dyspnea - latter even at rest occasionally GI - no vomiting, no nausea; +abd pain, diarrhea Physical Exam Physical Exam: gen - thin, NAD voice - mildly hoarse mouth - MMM, no lesions, no thrush neck - no JVD heart - RRR, s1 s2, no murmur lungs - mildly decreased BS bases but no rales/wheeze today abd - soft, minimal tenderness epigastric region, BS+, no HSM ext - no edema, pulses 2+ b/l skin - pallor Results & Data Results & Data ([facility]) Vital Signs (Past 12 Hours) Vital Signs Temp Pulse Resp BP Pulse Ox O2 Del Method 07/26/22 16:30 37.2 C 89 18 137/77 94 Room Air 07/26/22 13:07 86 16 97 Room Air 07/26/22 09:00 Room Air Laboratory Results Laboratory Results - last 24 hr 07/25/22 07/25/22 07/25/22 23:55 23:55 23:55 WBC RBC Hgb Hct MCV MCH MCHC RDW Std Deviation RDW Coeff of Brianda Plt Count MPV Immature Gran % (Auto) Neut % (Auto) Lymph % (Auto) [place] % (Auto) Eos % (Auto) Baso % (Auto) Neut # (Auto) Lymph # (Auto) [place] # (Auto) Eos # (Auto) Baso # (Auto) Immature Gran # (Auto) Sodium Potassium Chloride Carbon Dioxide Anion Gap BUN Creatinine Est Cr Clr Drug Dosing Est GFR ( Amer) Est GFR (Non-Af Amer) BUN/Creatinine Ratio Glucose Calcium Lipase Vitamin B12 Folate TSH Free T4 Stl C. diff Tox B Gene Cancelled C. difficile Tox B Gene Cancelled Miscellaneous Test Cancelled 07/26/22 07/26/22 07/26/22 06:25 06:25 06:25 WBC 15.39 H RBC 2.72 L Hgb 9.9 L Hct 26.9 L MCV 98.9 MCH 36.4 H MCHC 36.8 H RDW Std Deviation 55.0 H RDW Coeff of Brianda 15.2 H Plt Count 487 H MPV 9.5 Immature Gran % (Auto) 1.6 Neut % (Auto) 67.8 Lymph % (Auto) 15.9 [place] % (Auto) 14.6 Eos % (Auto) 0.0 Baso % (Auto) 0.1 Neut # (Auto) 10.45 H Lymph # (Auto) 2.44 [place] # (Auto) 2.24 H Eos # (Auto) 0.00 Baso # (Auto) 0.01 Immature Gran # (Auto) 0.25 H Sodium 137 Potassium 3.7 Chloride 104 Carbon Dioxide 26 Anion Gap 7 BUN 6 Creatinine 0.39 L Est Cr Clr Drug Dosing 188.9 Est GFR ( Amer) 149.1 Est GFR (Non-Af Amer) 128.6 BUN/Creatinine Ratio 15.4 Glucose 80 Calcium 7.7 L Lipase 27 Vitamin B12 > 1500 H Folate 3.67 L TSH Free T4 Stl C. diff Tox B Gene C. difficile Tox B Gene Miscellaneous Test 07/26/22 07/26/22 06:25 Unknown WBC RBC Hgb Hct MCV MCH MCHC RDW Std Deviation RDW Coeff of Brianda Plt Count MPV Immature Gran % (Auto) Neut % (Auto) Lymph % (Auto) [place] % (Auto) Eos % (Auto) Baso % (Auto) Neut # (Auto) Lymph # (Auto) [place] # (Auto) Eos # (Auto) Baso # (Auto) Immature Gran # (Auto) Sodium Potassium Chloride Carbon Dioxide Anion Gap BUN Creatinine Est Cr Clr Drug Dosing Est GFR ( Amer) Est GFR (Non-Af Amer) BUN/Creatinine Ratio Glucose Calcium Lipase Vitamin B12 Folate TSH 7.462 H Free T4 1.22 Stl C. diff Tox B Gene Negative Cdiff Gene C. difficile Tox B Gene Miscellaneous Test PG Care Time/CCT Total # of Minutes Spent Total Time Spent with Patient: Total time spent is greater than 50% in coordination of care (as documented) at patient's floor/unit and/or counseling patient: Coding Level of Care Code 61119 Subseq Hosp Care Lvl 3 Diagnoses Dysphagia R13.10 Cricopharyngeal dysphagia R13.13 Acute on chronic pancreatitis K85.90; K86.1 Pneumonia J18.9 Hypoxemia R09.02 GERD without esophagitis K21.9 Pancreatic duct obstruction K86.89 Alcohol use disorder F19.90 Seizure disorder G40.909 COPD (chronic obstructive pulmonary disease) J44.9 Calculus of pancreatic duct K86.89 DVT prophylaxis Z29.9 Hypokalemia E87.6 Tobacco dependence F17.200 Folate deficiency E53.8 Hypothyroidism E03.9
[2022-07-26] MEDS: LOPERAMIDE HCL 2 MG CAP PO PRN (20:12)
[2022-07-26] MEDS: ENOXAPARIN INJ 40 MG/0.4 ML SYR SQ SCH (20:13)
[2022-07-27] MEDS: LEVOTHYROXINE SODIUM 25 MCG TABLET PO SCH (05:02)
[2022-07-27] MEDS: CEFEPIME 2,000 MG in SYRINGE 0 ML IV SCH ×3 (05:02→20:12)
[2022-07-27 08:03] LABS: Basophils # (auto) 0.02 K/uL (0-0.2); Basophils % (auto) 0.2 %; Eosinophils # (auto) 0.02 K/uL (0-0.50); Eosinophils % (auto) 0.2 %; Hemoglobin 10.2 g/dl (14.0-18.0); Immature Granulocytes # (auto) 0.25 K/uL (0.00-0.02); Immature Granulocytes % (auto) 1.9 %; Lymphocytes # (auto) 3.01 K/uL (1.2-3.4); Lymphocytes % (auto) 22.6 %; Mean Corpuscular Hemoglobin 36.7 pg (25.0-34.0); Mean Corpuscular Hgb Conc 36.4 g/dL (32.0-36.0); Mean Corpuscular Volume 100.7 fL (80.0-100.0); Mean Platelet Volume 9.3 fL (9.4-12.4); Monocytes # (auto) 1.87 K/uL (0.24-0.82); Neutrophils # (auto) 8.15 K/uL (1.4-6.5); Neutrophils % (auto) 61.1 %; Platelet Count 484 K/uL (130-400); RDW Coefficient of Variation 14.9 % (11.5-14.5); RDW Standard Deviation 54.8 fL (36.4-46.3); Red Blood Count 2.78 M/uL (4.63-6.08); White Blood Count 13.32 K/ul (4.8-10.8)
[2022-07-27 08:38] LABS: Calcium 7.9 mg/dl (8.5-10.1); Creatinine Clr Calc Pharmacy 184.2 ml/min; Est GFR (African American) 147.5 ml/min; Est GFR (Non-African American) 127.3 ml/min; Magnesium 1.6 mg/dl (1.7-2.4); Potassium 3.2 mmol/L (3.5-5.1)
[2022-07-27] MEDS: SERTRALINE HCL 100 MG TABLET PO SCH (09:56)
[2022-07-27] MEDS: FOLIC ACID 1 MG TAB PO SCH (09:56)
[2022-07-27] MEDS: CYANOCOBALAMIN (B-12) 500 MCG TABLET PO SCH (09:56)
[2022-07-27] MEDS: METOCLOPRAMIDE HCL 5 MG TABLET PO SCH ×3 (09:56→17:42)
[2022-07-27] MEDS: SUCRALFATE 1 GM/10 ML UDC PO SCH ×4 (09:57→20:09)
[2022-07-27] MEDS: DOXYCYCLINE HYCLATE 100 MG CAP PO SCH ×2 (09:57→20:09)
[2022-07-27] MEDS: PANCREAZE (LIPASE 10,500U) CAP PO SCH ×3 (09:57→17:43)
[2022-07-27] MEDS: MAGNESIUM SULFATE / D5W 1 GM/100 ML BAG IV SCH ×2 (10:12→13:50)
[2022-07-27] MEDS: POTASSIUM CHLORIDE / WTR 10 MEQ/100 ML PLCT IV SCH ×3 (10:12→18:07)
[2022-07-27] MEDS: PANTOprazole 40 MG TAB PO SCH ×2 (10:30→20:09)
[2022-07-27] MEDS: lamoTRIgine 100 MG TAB PO SCH ×2 (10:30→20:10)
[2022-07-27] MEDS: THIAMINE HCL 100 MG TAB PO SCH (10:30)
[2022-07-27] MEDS: guaiFENesin 600 MG TABCR PO SCH ×2 (10:30→20:09)
[2022-07-27] MEDS: NICOTINE 14 MG/24 HR PATCH TD SCH (12:46)
--- NOTE | 2022-07-27 12:54 | Magnetic Resonance Report ---
MR brain wo con HISTORY: 62 years-old Male acute dysphagia; stroke ?? Acute stroke like symptoms COMPARISON: CT soft tissue neck 07/25/2022, brain MRI 07/29/2020 TECHNIQUE: Multiplanar multisequence MRI of the brain was obtained without the use of IV contrast FINDINGS: No restricted diffusion to suggest acute or subacute infarct. Several sequences are motion degraded. The midline structures are unremarkable. Degenerative changes of the imaged cervical spine. No pathol ogic blooming artifact on the T2 star series. No acute intracranial hemorrhage, midline shift, abnormal extra axial collection, hydrocephalus or ma ss. There is resolution of the previously described cortically based signal abnormality of the left f rontal hemisphere seen on the study from 2019. Mild involutional changes. Minimal T2/FLAIR prolongati on within the periventricular white matter may represent a degree of chronic microvascular ischemic d isease. There is asymmetric atrophy of the left hippocampus/mesial temporal lobe. Cerebral venous sin uses and major arterial flow voids appear patent. The skull, orbits and soft tissues are unremarkable . IMPRESSION: 1. No acute intracranial abnormality. 2. Asymmetric atrophy of the left hippocampus. Correlate clinically to exclude mesial temporal sclero sis. ACT 112: Negative or not required by law. The above report was generated using voice recognition software. It may contain grammatical, syntax o r spelling errors. Electronically signed by: Dewayne Gonzales M.D. 07/27/2022 12:52 PM
--- NOTE | 2022-07-27 14:07 | Anesthesiology Consultation ---
Date of Service July 27, 2022 Assessment & Plan (1) Encounter for pre-operative examination: Chart Review Chart Review: Acceptable Risk for Surgery, Patient NOT seen in Pre Admission Testing and president ergonomic consulting initiated Consults Requested none History Surgery Operation Date: 07/16/22 07:15 Proposed Procedures p Endoscopic Retrograde Cholangiopancreato - Benoit Isabel MD Operation Date: 07/27/22 16:55 Proposed Procedures p Esophagogastroduodenoscopy Dr Cline - Tee Gifford Case, DO Height/Weight Height: 5 ft 9 in Weight: 68 kg Allergies Allergy/AdvReac Type Severity Reaction Status Date / Time No Known Allergies Allergy Verified 07/15/22 16:18 Medications Home Medications Medication Instructions Recorded Confirmed Last Taken cyanocobalamin (vitamin B-12) 1,000 mcg PO DAILY #0 tabs 08/10/21 07/15/22 07/15/22 1,000 mcg tablet (Vitamin B-12) sertraline 100 mg tablet 100 mg PO DAILY #90 tabs 12/07/21 07/15/22 07/15/22 ipratropium 20 mcg-albuterol 100 1 puff inhalation QID PRN 07/15/22 07/15/22 Unknown mcg/actuation mist for inhalation Shortness Of Breath (Combivent Respimat) lamotrigine 100 mg tablet 100 mg PO BID 07/15/22 07/15/22 07/15/22 08:00 (Lamictal) Active Medications Generic Name Dose Route Start Last Admin Trade Name Freq PRN Reason Stop Dose Admin Albuterol 3 ml 07/21/22 15:27 07/26/22 13:07 Albut/Ipratrop 3mg/0.5mg Neb 3 Ml Vial NEB 08/20/22 18:59 3 ml QIDR PRN Administration Shortness Of Breath Or Wheezing Protocol Lipase/Protease/Amylase 1 cap 07/19/22 17:00 07/27/22 12:47 Pancreaze (Lipase 10,500u) Cap PO 08/18/22 16:59 1 cap TIDM MAKSIM Administration Cyanocobalamin 1,000 mcg 07/16/22 09:00 07/27/22 09:56 Cyanocobalamin (B-12) 500 Mcg Tablet PO 08/15/22 08:59 1,000 mcg DAILY MAKSIM Administration Doxycycline Hyclate 100 mg 07/22/22 21:00 07/27/22 09:57 Doxycycline Hyclate 100 Mg Cap PO 07/29/22 20:59 100 mg BID MAKSIM Administration Enoxaparin Sodium 40 mg 07/15/22 20:00 07/26/22 20:13 Enoxaparin Inj 40 Mg/0.4 Ml Syr SQ 08/14/22 19:59 40 mg Q24H MAKSIM Administration Folic Acid 2 mg 07/27/22 09:00 07/27/22 09:56 Folic Acid 1 Mg Tab PO 08/26/22 08:59 2 mg QAM MAKSIM Administration Guaifenesin 1,200 mg 07/24/22 21:00 07/27/22 10:30 Guaifenesin 600 Mg Tabcr PO 08/23/22 20:59 1,200 mg Q12 MAKSIM Administration Dexamethasone 6 mg/ Syringe 1.5 mls @ 1 mls/min 07/24/22 15:15 07/26/22 16:23 IV 08/23/22 15:14 1 mls/min Q24H MAKSIM Administration Cefepime HCl 2,000 mg/ Syringe 20 mls @ 5 mls/min 07/24/22 21:00 07/27/22 12:51 IV 07/31/22 20:59 5 mls/min Q8H MAKSIM Administration Protocol Potassium Chloride/Dextrose/Sod Cl 20 meq in 1,000 mls @ 50 mls/hr 07/26/22 16:30 07/26/22 16:52 D5nss + 20meq Kcl IV 08/25/22 16:29 50 mls/hr .Q20H MAKSIM Administration Protocol Lamotrigine 100 mg 07/15/22 21:00 07/27/22 10:30 Lamotrigine 100 Mg Tab PO 08/14/22 20:59 100 mg BID MAKSIM Administration Levothyroxine Sodium 25 mcg 07/26/22 11:00 07/27/22 05:02 Levothyroxine Sodium 25 Mcg Tablet PO 08/25/22 10:59 25 mcg DAILYBB MAKSIM Administration Loperamide HCl 2 mg 07/26/22 19:50 07/26/22 20:12 Loperamide Hcl 2 Mg Cap PO 08/25/22 19:49 2 mg Q4H PRN Administration diarrhea Melatonin 3 mg 07/17/22 18:41 07/18/22 20:46 Melatonin 3 Mg Tab PO 08/16/22 18:40 3 mg HS PRN Administration Sleep Metoclopramide HCl 5 mg 07/21/22 17:00 07/27/22 12:48 Metoclopramide Hcl 5 Mg Tablet PO 08/20/22 16:59 5 mg TIDM MAKSIM Administration Miscellaneous 1 each 07/17/22 08:59 07/27/22 10:08 Remove Nicoderm Patch N/A 08/16/22 08:58 1 each DAILY@0859 MAKSIM Administration Nicotine 14 mg 07/16/22 16:15 07/27/22 12:46 Nicotine 14 Mg/24 Hr Patch TD 08/15/22 16:14 14 mg QAM MAKSIM Administration Ondansetron HCl 4 mg 07/15/22 20:00 07/21/22 08:11 Ondansetron Inj 2 Mg/Ml 2 Ml Vial IV 08/14/22 19:59 4 mg Q6H PRN Administration Nausea Pantoprazole Sodium 40 mg 07/15/22 21:00 07/27/22 10:30 Pantoprazole 40 Mg Tab PO 08/14/22 20:59 40 mg BID MAKSIM Administration Sertraline HCl 100 mg 07/16/22 09:00 07/27/22 09:56 Sertraline Hcl 100 Mg Tablet PO 08/15/22 08:59 100 mg DAILY MAKSIM Administration Sucralfate 1 gm 07/20/22 21:00 07/27/22 12:50 Sucralfate 1 Gm/10 Ml Udc PO 08/19/22 20:59 1 gm QID MAKSIM Administration Thiamine HCl 100 mg 07/15/22 20:00 07/27/22 10:30 Thiamine Hcl 100 Mg Tab PO 08/14/22 19:59 100 mg QAM MAKSIM Administration NPO Date Last Intake of Fluids: 07/15/22 Time Last Intake of Fluids: 19:50 Last Intake of Fluids Comment: Sip per patient, Dr. Barillas aware. Date Last Intake of Solids: 07/15/22 Time Last Intake of Solids: 19:50 Last Intake of Solids Comment: Supper per patient. Past Medical History Medical History Alcohol abuse Alcohol withdrawal seizure Cervical spondylosis COPD (chronic obstructive pulmonary disease) Degenerative disc disease Encounter for pre-operative examination GERD without esophagitis Hypertension Kidney lesion Renal Cyst -CT of Abd noted 02/18/21 first describes 7 mm left renal lesion, hyperdense cyst versus solid renal neoplasm. A nonemergent dedicated renal CT scan or MRI is recommended in follow-up -Renal CT 02/19/21-7 mm left renal lesion in question appeared hyperdense to renal parenchyma on the noncontrast portion of the study and did not demonstrate significant enhancement. This lesion is felt to represent a hyperdense cyst. A 12 month follow-up study would seem prudent. -Renal CT 05/31/21-Stable 9 mm hyperdense/hemorrhagic cyst within the left kidney, There is a 6 mm hypodense lesion within the left kidney which is technically too small to characterize but favors a simple cyst. Vertebral artery stenosis Vertigo no medications Past Family History Family History Aunt Parkinson disease Cerebral aneurysm Mother Cerebral aneurysm Depression Anemia Uncle Cerebral aneurysm Other No family history of adverse response to anesthesia Denies family history of Ovarian cancer Prostate cancer Myocardial infarction Breast cancer Lung cancer Colorectal cancer Past Surgical History Surgical History History of colonoscopy History of esophagogastroduodenoscopy (EGD) 10/19/20 [facility] Hx of neck surgery (05/2018) cervical fusion (C2-C3?) Full ROM S/P epidural steroid injection Status post tooth extraction Social History Smoking Status: Current every day smoker tobacco type: cigarettes Smoking cigarettes per day: 20 Do You Dip or Chew Tobacco: No Hx Alcohol Use: Yes Alcohol type: hard liquor alcohol intake frequency: a few times a week Hx Substance Use: Yes substance use type: marijuana Substance Use Type Other:: Daily Last Used Substance: Days (ago) Physical Exam Vital Signs Last Vital Signs Temp 36.7 C 07/27/22 07:27 Pulse 88 07/27/22 07:27 Resp 16 07/27/22 07:27 BP 149/77 H 07/27/22 07:27 Pulse Ox 95 07/27/22 07:27 O2 Del Method 07/27/22 07:27 O2 Flow Rate 1 07/24/22 08:30 Testing Laboratory Results 07/27/22 07:50 07/27/22 07:50 Urine Color Yellow 07/15/22 16:25 Urine Appearance Clear (Clear) 07/15/22 16:25 Urine pH 5.5 (4.5-7.5) 07/15/22 16:25 Ur Specific Walton > 1.045 (1.000-1.030) H 07/15/22 16:25 Urine Protein 1+ (Negative) H 07/15/22 16:25 Urine Glucose (UA) Negative (Negative) 07/15/22 16:25 Urine Ketones 4+ (Negative) H 07/15/22 16:25 Urine Nitrite Negative (Negative) 07/15/22 16:25 Ur Leukocyte Esterase Negative (Negative) 07/15/22 16:25 Urine WBC (Auto) 5-10 /hpf (0-5) H 07/15/22 16:25 Urine RBC (Auto) 0-4 /hpf (0-4) 07/15/22 16:25 U Hyaline Cast (Auto) 1-5 /lpf (0-5) 07/15/22 16:25 U Epithel Cells (Auto) >30 /lpf (0-5) H 07/15/22 16:25 Urine Bacteria (Auto) Negative (Negative) 07/15/22 16:25 Electrocardiogram Date: 07/21/22 Test Reason : Blood Pressure : / mmHG Vent. Rate : 090 BPM Atrial Rate : 090 BPM P-R Int : 126 ms QRS Dur : 080 ms QT Int : 390 ms P-R-T Axes : 070 069 063 degrees QTc Int : 477 ms Normal sinus rhythm Normal ECG When compared with ECG of 15-JUL-2022 14:12, No significant change was found Confirmed by Eduardo Louis ([id number]) on 07/21/2022 2:46:50 PM Chest X-Ray Date: 07/21/22 XR chest 1V portable CLINICAL HISTORY: Hypoxemia. COMPARISON STUDY: Chest CT May 31, 2021. Chest radiograph August 07, 2021. FINDINGS: Postoperative findings within the spine are incidentally noted. There is no pneumothorax. No definite pleural effusion is present. Bibasilar opacities have developed. Subtle interstitial thickening within the right lung is present. Cardiac size is normal. Mediastinal contours are normal. IMPRESSION: 1. Interval development of bibasilar opacities. This may reflect pneumonia or aspiration pneumonitis. Atelectasis could appear similar. 2. Asymmetric right lung interstitial thickening which may also be infectious. Asymmetric pulmonary edema is considered less likely.
[2022-07-27] MEDS ORDERED: LIDOCAINE 2% MPF LOCAL 5 ML VIAL INFIL ONE (16:08)
[2022-07-27] MEDS ORDERED: PROPOFOL IV EMULSION 10 MG/ML 20 ML VIAL IV ONE ×2 (16:08→16:09)
--- NOTE | 2022-07-27 16:08 | Gastroenterology Progress Note ---
Date of Service July 27, 2022 Assessment & Plan (1) Alcohol abuse: (2) Acute pancreatitis: (3) Nausea & vomiting: (4) Pancreatic duct obstruction: (5) Esophageal dysphagia: Plan: Continue current therapy and supportive care Proceed with EGD today Discussed case with Dr. Gan Admission and Anticipated Discharge Date Admission Date: July 15, 2022 Subjective Patient with recent complaint of dysphagia since his ERCP. States difficulty with solids>liquids. He denies any fevers, chills, nausea, vomiting, hematemesis, melena, or hematochezia. He denies any further complaints. Review of Systems Review of Systems: All systems reviewed & are unremarkable except as noted in Subjective Physical Exam Constitutional: + ill appearing; + not well nourished and no acute distress Respiratory: normal respiratory effort; no respiratory distress and no labored breathing Auscultation: lungs clear to auscultation bilaterally Gastrointestinal (Abdomen): normal bowel sounds, soft, nontender, no hepatosplenomegaly Skin: no rashes, warm and dry Psychiatric: A+Ox3, euthymic affect Results & Data Results & Data ([facility]) Vital Signs (Past 12 Hours) Vital Signs Temp Pulse Resp BP Pulse Ox O2 Del Method 07/27/22 14:28 36.5 C 80 16 149/90 H 94 Room Air 07/27/22 14:20 36.8 C 78 18 146/79 H 93 Room Air 07/27/22 07:27 36.7 C 88 16 149/77 H 95 Room Air PG Care Time/CCT Total # of Minutes Spent Total Time Spent with Patient: Total time spent is greater than 50% in coordination of care (as documented) at patient's floor/unit and/or counseling patient: Coding Level of Care Code None Diagnoses Alcohol abuse F10.10 Acute pancreatitis K85.20 Acute pancreatitis complication: unspecified Pancreatitis type: alcohol induced Nausea & vomiting R11.2 Vomiting type: unspecified Pancreatic duct obstruction K86.89 Esophageal dysphagia R13.19 (1) Acute pancreatitis Acute pancreatitis complication: unspecified Pancreatitis type: alcohol induced Qualified Code(s): K85.20 - Alcohol induced acute pancreatitis without necrosis or infection (2) Nausea & vomiting Vomiting type: unspecified Qualified Code(s): R11.2 - Nausea with vomiting, unspecified
[2022-07-27] MEDS ORDERED: GLYCOPYRROLATE 0.2 MG/ML VIAL ONE (16:25)
[2022-07-27] MEDS ORDERED: ONDANSETRON INJ 2 MG/ML 2 ML VIAL ONE (16:25)
--- NOTE | 2022-07-27 17:04 | GI REPORT ---
Patient Name: Jorge Coronado Procedure Date: 07/27/2022 4:27 PM Date of : 1960 Admit Type: Inpatient Age: 62 Gender: Male Attending MD: Tee Cline DO, Procedure: Upper GI endoscopy Providers: Tee Cline DO Referring MD: Referred Self Indications: Dysphagia Medicines: Monitored Anesthesia Care Complications: No immediate complications. Estimated Blood Loss: Estimated blood loss: none. Procedure: Pre-Anesthesia Assessment: - Prior to the procedure, a History and Physical was performed, and patient medications and allergies were reviewed. The patient's tolerance of previous anesthesia was also reviewed. The risks and benefits of the procedure and the sedation options and risks were discussed with the patient. All questions were answered, and informed consent was obtained. Prior Anticoagulants: The patient has taken Lovenox (enoxaparin), last dose was 1 day prior to procedure. ASA Grade Assessment: III - A patient with severe systemic disease. After reviewing the risks and benefits, the patient was deemed in satisfactory condition to undergo the procedure. After obtaining informed consent, the endoscope was passed under direct vision. Throughout the procedure, the patient's blood pressure, pulse, and oxygen saturations were monitored continuously. The Endoscope was introduced through the mouth, and advanced to the second part of duodenum. The upper GI endoscopy was accomplished without difficulty. The patient tolerated the procedure well. Findings: One benign-appearing, intrinsic moderate stenosis was found 20 cm from the incisors. This stenosis measured 1.3 cm (inner diameter) x 1 cm (in length). The stenosis was traversed. A guidewire was placed and the scope was withdrawn. Dilation was performed with a Savary dilator with mild resistance at 51 Fr and 54 Fr. The dilation site was examined following endoscope reinsertion and showed moderate improvement in luminal narrowing. Localized mild inflammation characterized by erythema was found in the gastric antrum. The examined duodenum was normal. Impression: - Benign-appearing esophageal stenosis. Dilated. - Gastritis. - Normal examined duodenum. - No specimens collected. Recommendation: - Return patient to [facility] for ongoing care. - Advance diet as tolerated. - Continue present medications. - Repeat upper endoscopy PRN for retreatment. - Return to primary care physician as previously scheduled. Tee Cline DO 07/27/2022 5:04:19 PM This report has been signed electronically. Note Initiated On: 07/27/2022 4:27 PM Number of Addenda: 0 I attest to the content of the Intraoperative Record and orders documented therein, exceptions below {[id number]}
--- NOTE | 2022-07-27 17:24 | Anesthesiology Progress Note ---
Date of Service July 27, 2022 Anesthesia Post Procedure Vital Signs Vital Signs: Temp Pulse Resp BP Pulse Ox O2 Del Method 07/27/22 17:08 103 H 16 142/92 H 92 Room Air 07/27/22 16:53 117 H 16 143/98 H 95 Room Air 07/27/22 16:38 95 H 16 119/73 96 Room Air 07/27/22 14:28 36.5 C 80 16 149/90 H 94 Room Air 07/27/22 14:20 36.8 C 78 18 146/79 H 93 Room Air 07/27/22 07:27 36.7 C 88 16 149/77 H 95 Room Air 07/26/22 22:02 36.6 C 80 18 150/79 H 94 Room Air 07/26/22 19:25 Room Air 07/26/22 20:26 36.8 C 83 16 143/80 H 94 Room Air Pain Intensity Abdomen: Pain Intensity: 0 Transfer of Care Handoff Completed per policy Notes Mental Status: alert / awake / arousable and participated in evaluation Patient Amnestic to Procedure: Yes Nausea / Vomiting: adequately controlled Pain: adequately controlled Airway Patency, RR, SpO2: stable & adequate BP & HR: stable & adequate Hydration State: stable & adequate Anesthetic Complications: no major complications apparent
[2022-07-27] MEDS: dexAMETHasone 6 MG in SYRINGE 0 ML IV SCH (17:39)
[2022-07-27] MEDS: D5NSS + 20MEQ KCL 20 MEQ/1,000 ML BAG IV SCH (19:19)
[2022-07-27] MEDS: ENOXAPARIN INJ 40 MG/0.4 ML SYR SQ SCH (20:10)
--- NOTE | 2022-07-27 22:04 | Hospitalist Progress Note ---
Date of Service July 27, 2022 Assessment & Plan (1) Dysphagia: Plan: MRI brain today negative for acute stroke or chronic stroke. EGD by Dr Cline today - esophageal stenosis found upper 1/3 of the esophagus, s/p dilatation. Hopefully this was the cause of his dysphagia. Allow clears tonight and advance tomorrow if tolerating. If dysphagia persists will reconsult speech therapy. (2) Cricopharyngeal dysphagia: Plan: video swallow with cricopharyngeal bar s/p EGD today with esophageal stenosis which is the likely cause of the bar seen appreciate GI assistance (3) Acute on chronic pancreatitis: Plan: CT AP on 07/15 showed evidence favoring pancreatitis and also large calculus within the pancreatic duct within the pancreatic head, just proximal to the ampulla measuring 1.3 x 0.6 cm with mild pancreatic ductal dilation. CDS queries: SIRS of non-infectious origin due to pancreatitis. Also malnutrition as a result of his chronic pancreatitis. - S/p ERCP on 07/16 with large gallbladder stone removed. Biliary sphincterectomy and stent placed to be removed in 3 months. - Tolerated clear liquid after surgery; advanced to full liquids on 07/17, and low-fat by 07/19. recent lipase wnl minimal chronic abd pain on exam allow clears today and re-eval tomorrow (4) Pneumonia: Plan: b/l; aspiration in light of #1/#2?? broadened augmentin to cefepime on 07/24 due to ongoing leukocytosis etc; today is day #4 cefepime cont doxycycline for atypical coverage cont mucinex BID cont dexamethasone 6mg IV daily - today is day #4 of such repeat COVID 07/24 negative will stop cefepime today; proceed forward with a few more days of doxy then stop all abx (5) Hypoxemia: Plan: 2nd to pneumonia, possibly aspiration o2 sats wnl; not on supplemental O2 resolved (6) GERD without esophagitis: Plan: EGD with esophageal stenosis and mild gastritis but no esophagitis. Cont PPI twice daily Cont carafate qid see above re: dysphagia (7) Pancreatic duct obstruction: Plan: S/p ERCP as above (8) Alcohol use disorder: Plan: No signs of etoh withdrawal at this time Cont thiamine, folate, and b12 supplementation B12 level wnl folate low - increased folate supplementation to 2mg/day (9) Seizure disorder: Plan: He follows with a neurologist in [place]. Possibly has a seizure disorder in addition to several alcohol-related seizures per prior neuro notes. - Continue Lamictal. - Neurology consulted on admission in the beginning of the year, EEG: Borderline abnormal awake/drowsy EEG with evidence of mild generalized and left temporal/left parietal slowing. No epileptiform abnormalities. - Seizure precautions (10) COPD (chronic obstructive pulmonary disease): Plan: probable mild exacerbation in setting of pneumonia started dexamethasone 6mg IV daily 07/24/22 - day #4 of such cont bronchodilators (11) Calculus of pancreatic duct: Plan: s/p ERCP with stent deployment (12) DVT prophylaxis: Plan: lovenox daily (13) Hypokalemia: Plan: replace with IV KCL repeat level am replete low mag repeat level am (14) Tobacco dependence: Plan: cont nicoderm 14mg/day (15) Folate deficiency: Plan: despite 1mg of folate daily level remains low increased to 2mg/day repeat level 1 month (16) Hypothyroidism: Plan: TSH 7 in light of fatigue and host of other symptoms may benefit from Rx started synthroid 25mcg daily repeat TSH 6 weeks (17) Mesial temporal sclerosis: Plan: as seen on brain MRI today this is the likely cause of his chronic seizure d/o Plan cont PT/OT appreciate speech therapy consult/recs hopefully dilatation of esophagus will resolve his dysphagia care d/w Dr Cline multiple times today as well as [facility] GI Admission and Anticipated Discharge Date Admission Date: July 15, 2022 Subjective saw patient post-EGD with dilatation he stated "I'm hungry!" denied any pulmonary complaints complains of mild stomach pain - chronic, no change Review of Systems Review of Systems: cv - no chest pain pulm - denies dyspnea, but has had such this week GI - no vomiting, no nausea Physical Exam Physical Exam: gen - thin, NAD, looks about the same as yesterday voice - mildly hoarse mouth - MMM, no lesions, no thrush neck - no JVD heart - RRR, s1 s2, no murmur lungs - mildly decreased BS bases but no rales/wheeze; CTA b/l abd - soft, minimal tenderness epigastric region, BS+, no HSM ext - no edema, pulses 2+ b/l skin - pallor Results & Data Results & Data ([facility]) Vital Signs (Past 12 Hours) Vital Signs Temp Pulse Resp BP Pulse Ox O2 Del Method 07/27/22 20:10 36.4 C L 78 14 116/68 94 Room Air 07/27/22 17:08 103 H 16 142/92 H 92 Room Air 07/27/22 16:53 117 H 16 143/98 H 95 Room Air 07/27/22 16:38 95 H 16 119/73 96 Room Air 07/27/22 14:28 36.5 C 80 16 149/90 H 94 Room Air 07/27/22 14:20 36.8 C 78 18 146/79 H 93 Room Air Laboratory Results Laboratory Results - last 24 hr 07/25/22 07/27/22 07/27/22 23:55 07:50 07:50 WBC 13.32 H RBC 2.78 L Hgb 10.2 L Hct 28.0 L MCV 100.7 H MCH 36.7 H MCHC 36.4 H RDW Std Deviation 54.8 H RDW Coeff of Brianda 14.9 H Plt Count 484 H MPV 9.3 L Immature Gran % (Auto) 1.9 Neut % (Auto) 61.1 Lymph % (Auto) 22.6 Ramsey % (Auto) 14.0 Eos % (Auto) 0.2 Baso % (Auto) 0.2 Neut # (Auto) 8.15 H Lymph # (Auto) 3.01 Ramsey # (Auto) 1.87 H Eos # (Auto) 0.02 Baso # (Auto) 0.02 Immature Gran # (Auto) 0.25 H Sodium 139 Potassium 3.2 L Chloride 107 Carbon Dioxide 26 Anion Gap 6 BUN 4 L Creatinine 0.40 L Est Cr Clr Drug Dosing 184.2 Est GFR ( Amer) 147.5 Est GFR (Non-Af Amer) 127.3 BUN/Creatinine Ratio 10.0 Glucose 94 Calcium 7.9 L Magnesium 1.6 L C. difficile Tox B Gene Cancelled Diagnostic Findings EGD by Dr Cline - esophageal stenosis upper 1/3 esophagus s/p dilatation Brain MRI 07/27/22 09:30 MR brain wo con HISTORY: 62 years-old Male acute dysphagia; stroke ?? Acute stroke like symptoms COMPARISON: CT soft tissue neck 07/25/2022, brain MRI 07/29/2020 TECHNIQUE: Multiplanar multisequence MRI of the brain was obtained without the use of IV contrast FINDINGS: No restricted diffusion to suggest acute or subacute infarct. Several sequences are motion degraded. The midline structures are unremarkable. Degenerative changes of the imaged cervical spine. No pathologic blooming artifact on the T2 star series. No acute intracranial hemorrhage, midline shift, abnormal extra axial collection, hydrocephalus or mass. There is resolution of the previously described cortically based signal abnormality of the left frontal hemisphere seen on the study from 2019. Mild involutional changes. Minimal T2/FLAIR prolongation within the periventricular white matter may represent a degree of chronic microvascular ischemic disease. There is asymmetric atrophy of the left hippocampus/mesial temporal lobe. Cerebral venous sinuses and major arterial flow voids appear patent. The skull, orbits and soft tissues are unremarkable. IMPRESSION: 1. No acute intracranial abnormality. 2. Asymmetric atrophy of the left hippocampus. Correlate clinically to exclude mesial temporal sclerosis. ACT 112: Negative or not required by law. The above report was generated using voice recognition software. It may contain grammatical, syntax or spelling errors. Electronically signed by: Dewayne Gonzales M.D. 07/27/2022 12:52 PM PG Care Time/CCT Total # of Minutes Spent Total Time Spent with Patient: Total time spent is greater than 50% in coordination of care (as documented) at patient's floor/unit and/or counseling patient: Coding Level of Care Code 26071 Subseq Hosp Care Lvl 3 Diagnoses Dysphagia R13.10 Cricopharyngeal dysphagia R13.13 Acute on chronic pancreatitis K85.90; K86.1 Pneumonia J18.9 Hypoxemia R09.02 GERD without esophagitis K21.9 Pancreatic duct obstruction K86.89 Alcohol use disorder F19.90 Seizure disorder G40.909 COPD (chronic obstructive pulmonary disease) J44.9 Calculus of pancreatic duct K86.89 DVT prophylaxis Z29.9 Hypokalemia E87.6 Tobacco dependence F17.200 Folate deficiency E53.8 Hypothyroidism E03.9 Mesial temporal sclerosis G93.81
[2022-07-28] MEDS: LEVOTHYROXINE SODIUM 25 MCG TABLET PO SCH (05:25)
[2022-07-28] MEDS ORDERED: ACETAMINOPHEN 500 MG TAB PO PRN (08:00)
[2022-07-28 08:34] LABS: BUN Creatinine Ratio 12.5 (10-20); Calcium 7.4 mg/dl (8.5-10.1); Creatinine Clr Calc Pharmacy 184.2 ml/min; Est GFR (African American) 147.5 ml/min; Est GFR (Non-African American) 127.3 ml/min; Magnesium 1.6 mg/dl (1.7-2.4); Potassium 3.4 mmol/L (3.5-5.1)
[2022-07-28] MEDS: NICOTINE 14 MG/24 HR PATCH TD SCH (09:01)
[2022-07-28] MEDS: PANTOprazole 40 MG TAB PO SCH ×2 (09:01→20:31)
[2022-07-28] MEDS: PANCREAZE (LIPASE 10,500U) CAP PO SCH ×3 (09:01→18:13)
[2022-07-28] MEDS: SERTRALINE HCL 100 MG TABLET PO SCH (09:01)
[2022-07-28] MEDS: DOXYCYCLINE HYCLATE 100 MG CAP PO SCH ×2 (09:01→20:29)
[2022-07-28] MEDS: CYANOCOBALAMIN (B-12) 500 MCG TABLET PO SCH (09:01)
[2022-07-28] MEDS: guaiFENesin 600 MG TABCR PO SCH ×2 (09:01→20:30)
[2022-07-28] MEDS: METOCLOPRAMIDE HCL 5 MG TABLET PO SCH ×3 (09:01→18:13)
[2022-07-28] MEDS: FOLIC ACID 1 MG TAB PO SCH (09:01)
[2022-07-28] MEDS: SUCRALFATE 1 GM/10 ML UDC PO SCH ×4 (09:01→20:31)
[2022-07-28] MEDS: lamoTRIgine 100 MG TAB PO SCH ×2 (09:01→20:30)
[2022-07-28] MEDS: THIAMINE HCL 100 MG TAB PO SCH (09:01)
[2022-07-28] MEDS ORDERED: POTASSIUM CHLORIDE / WTR 10 MEQ/100 ML PLCT IV ONE (10:46)
[2022-07-28] MEDS: MAGNESIUM SULFATE / D5W 1 GM/100 ML BAG IV SCH ×2 (11:25→13:32)
--- NOTE | 2022-07-28 12:17 | Hospitalist Progress Note ---
Date of Service July 28, 2022 Assessment & Plan (1) Dysphagia: Plan: POD #1 s/p EGD by Dr Cline - esophageal stenosis found upper 1/3 of the esophagus, s/p dilatation. Hopefully this was the cause of his dysphagia. Tolerated clears overnight and this am. Advance to full liquids. If he has good day stop IV fluids and then advance diet to soft later tonight. MRI brain 07/27 without acute or chronic CVA. (2) Cricopharyngeal dysphagia: Plan: video swallow with cricopharyngeal bar s/p EGD 07/27 with esophageal stenosis which was the likely cause of the bar seen s/p dilatation appreciate GI assistance (3) Acute on chronic pancreatitis: Plan: CT AP on 07/15 showed evidence favoring pancreatitis and also large calculus within the pancreatic duct within the pancreatic head, just proximal to the ampulla measuring 1.3 x 0.6 cm with mild pancreatic ductal dilation. - S/p ERCP on 07/16 with large gallbladder stone removed. Biliary sphincterectomy and stent placed to be removed in 3 months. ERCP performed by Dr Isabel. - Tolerated clear liquid after surgery; advanced to full liquids on 07/17, and low-fat by 07/19. However, he then started having dysphagia as noted above. recent lipase wnl minimal chronic abd pain on exam - tylenol prn allow full liquids today (4) Pneumonia: Plan: b/l; aspiration in light of #1/#2?? broadened augmentin to cefepime on 07/24 due to ongoing leukocytosis etc; received 4 days of cefepime - now discontinued cont doxycycline for atypical coverage cont mucinex BID cont dexamethasone 6mg IV daily - today is day #5 of such - d/c dexamethasone after today's dose repeat COVID test 07/24 negative cont doxy x 2 more days then stop all abx (5) Hypoxemia: Plan: 2nd to pneumonia, possibly aspiration o2 sats wnl; not on supplemental O2 resolved (6) GERD without esophagitis: Plan: EGD 07/27 with esophageal stenosis and mild gastritis but no esophagitis. Cont PPI twice daily Cont carafate qid see above re: dysphagia (7) Pancreatic duct obstruction: Plan: S/p ERCP as above (8) Alcohol use disorder: Plan: No signs of etoh withdrawal at this time Cont thiamine (increase to 200mg BID), folate, and b12 supplementation B12 level wnl folate low - increased folate supplementation to 2mg/day (9) Seizure disorder: Plan: He follows with a neurologist in [place]. Possibly has a seizure disorder in addition to several alcohol-related seizures per prior neuro notes. - Continue Lamictal. - Neurology consulted on admission in the beginning of the year, EEG: Borderline abnormal awake/drowsy EEG with evidence of mild generalized and left temporal/left parietal slowing. No epileptiform abnormalities. - Seizure precautions (10) COPD (chronic obstructive pulmonary disease): Plan: probable mild exacerbation in setting of pneumonia started dexamethasone 6mg IV daily 07/24/22 - day #5 of such - stop dex after tonight's doses cont bronchodilators (11) Calculus of pancreatic duct: Plan: s/p ERCP with stent deployment (12) DVT prophylaxis: Plan: lovenox daily (13) Hypokalemia: Plan: replete with IV KCL repeat BMP am low mag - replete repeat level am (14) Tobacco dependence: Plan: cont nicoderm 14mg/day (15) Folate deficiency: Plan: despite 1mg of folate daily level remains low increased to 2mg/day repeat level 1 month (16) Hypothyroidism: Plan: TSH 7 in light of fatigue and host of other symptoms may benefit from Rx started synthroid 25mcg daily repeat TSH 6 weeks (17) Mesial temporal sclerosis: Plan: as seen on brain MRI 07/27 this is the likely cause of his chronic seizure d/o (18) Dizziness: Plan: MRI brain negative check orthostatics (19) Fall: Plan: nursing not aware of any fall last evening he has no evidence of any injury on exam this am I encouraged him to call for help when he gets out of bed, etc nursing aware of #18 and #19 Plan cont PT/OT- he has been cleared for home by both services appreciate speech therapy consult/recs Admission and Anticipated Discharge Date Admission Date: July 15, 2022 Subjective patient states he tolerated clears overnight and this am denies dysphagia - states "it's just a little sore" (in his throat) minimal cough minimal congestion in chest minor nasal congestion has low-grade upper stomach pain - baseline in addition c/o dizziness - lightheaded feeling with standing fell in bathroom - can't give details I spoke with nursing staff - they are not aware that he fell last night; they did state he fell a few days ago Review of Systems Review of Systems: gen - tired cv - no cp pulm - no dyspnea GI - mild pain unchanged from prior; no nausea/emesis Physical Exam Physical Exam: gen - thin, NAD, looks about the same as yesterday; resting in bed voice - mildly hoarse - no change mouth - MMM, no lesions, no thrush, no erythema neck - no JVD heart - RRR, s1 s2, no murmur lungs - mildly decreased BS bases only; otherwise CTA b/l abd - soft, minimal tenderness epigastric region, BS+, no HSM, no peritoneal signs ext - no edema, pulses 2+ b/l musculo - no signs of injury or trauma to arms or legs; full ROM of shoulders and hips b/l Results & Data Results & Data ([facility]) Vital Signs (Past 12 Hours) Vital Signs Temp Pulse Resp BP Pulse Ox O2 Del Method 07/28/22 07:09 36.8 C 75 18 128/75 94 Room Air Laboratory Results Laboratory Results - last 24 hr 07/28/22 07:25 Sodium 136 Potassium 3.4 L Chloride 106 Carbon Dioxide 26 Anion Gap 4 BUN 5 L Creatinine 0.40 L Est Cr Clr Drug Dosing 184.2 Est GFR ( Amer) 147.5 Est GFR (Non-Af Amer) 127.3 BUN/Creatinine Ratio 12.5 Glucose 102 H Calcium 7.4 L Magnesium 1.6 L PG Care Time/CCT Total # of Minutes Spent Total Time Spent with Patient: Total time spent is greater than 50% in coordination of care (as documented) at patient's floor/unit and/or counseling patient: Coding Level of Care Code 36375 Subseq Hosp Care Lvl 3 Diagnoses Dysphagia R13.10 Cricopharyngeal dysphagia R13.13 Acute on chronic pancreatitis K85.90; K86.1 Pneumonia J18.9 Hypoxemia R09.02 GERD without esophagitis K21.9 Pancreatic duct obstruction K86.89 Alcohol use disorder F19.90 Seizure disorder G40.909 COPD (chronic obstructive pulmonary disease) J44.9 Calculus of pancreatic duct K86.89 DVT prophylaxis Z29.9 Hypokalemia E87.6 Tobacco dependence F17.200 Folate deficiency E53.8 Hypothyroidism E03.9 Mesial temporal sclerosis G93.81 Dizziness R42 Fall W19.XXXA
[2022-07-28] MEDS: dexAMETHasone 6 MG in SYRINGE 0 ML IV SCH (16:06)
[2022-07-28] MEDS: D5NSS + 20MEQ KCL 20 MEQ/1,000 ML BAG IV SCH (16:20)
[2022-07-28] MEDS: ENOXAPARIN INJ 40 MG/0.4 ML SYR SQ SCH (20:30)
[2022-07-29] MEDS: LEVOTHYROXINE SODIUM 25 MCG TABLET PO SCH (05:54)
[2022-07-29 06:53] LABS: Hematocrit (blood only) 26.7 % (40.1-51.0); Hemoglobin 9.6 g/dl (14.0-18.0); Mean Corpuscular Hemoglobin 36.4 pg (25.0-34.0); Mean Corpuscular Volume 101.1 fL (80.0-100.0); Mean Platelet Volume 9.6 fL (9.4-12.4); Platelet Count 456 K/uL (130-400); RDW Coefficient of Variation 14.9 % (11.5-14.5); RDW Standard Deviation 55.3 fL (36.4-46.3); Red Blood Count 2.64 M/uL (4.63-6.08); White Blood Count 14.54 K/ul (4.8-10.8)
[2022-07-29 07:17] LABS: Anion Gap 4 (3-11); BUN Creatinine Ratio 8.3 (10-20); Blood Urea Nitrogen 3 mg/dl (6-23); Calcium 7.8 mg/dl (8.5-10.1); Carbon Dioxide 27 mmol/L (21-32); Chloride 108 mmol/L (98-107); Creatinine Clr Calc Pharmacy 204.6 ml/min; Est GFR (African American) > 150.0 ml/min; Est GFR (Non-African American) 132.9 ml/min; Glucose 84 mg/dl (70-99(Fasting)); Magnesium 1.8 mg/dl (1.7-2.4); Potassium 3.5 mmol/L (3.5-5.1); Sodium 139 mmol/L (136-145)
[2022-07-29] MEDS: DOXYCYCLINE HYCLATE 100 MG CAP PO SCH (08:23)
[2022-07-29] MEDS: SUCRALFATE 1 GM/10 ML UDC PO SCH ×4 (08:23→20:52)
[2022-07-29] MEDS: guaiFENesin 600 MG TABCR PO SCH ×2 (08:23→20:52)
[2022-07-29] MEDS: CYANOCOBALAMIN (B-12) 500 MCG TABLET PO SCH (08:23)
[2022-07-29] MEDS: PANTOprazole 40 MG TAB PO SCH ×2 (08:23→20:52)
[2022-07-29] MEDS: lamoTRIgine 100 MG TAB PO SCH ×2 (08:23→20:52)
[2022-07-29] MEDS: FOLIC ACID 1 MG TAB PO SCH (08:23)
[2022-07-29] MEDS: PANCREAZE (LIPASE 10,500U) CAP PO SCH ×3 (08:23→17:47)
[2022-07-29] MEDS: THIAMINE HCL 100 MG TAB PO SCH (08:24)
[2022-07-29] MEDS: SERTRALINE HCL 100 MG TABLET PO SCH (08:24)
[2022-07-29] MEDS: METOCLOPRAMIDE HCL 5 MG TABLET PO SCH ×3 (08:24→18:11)
[2022-07-29] MEDS: NICOTINE 14 MG/24 HR PATCH TD SCH (08:24)
[2022-07-29] MEDS ORDERED: OPTIRAY 320 500ml IV ONE (18:35)
--- NOTE | 2022-07-29 19:13 | CT Scan Report ---
CT angio chest PE protocol CLINICAL HISTORY: pleuritic chest pain b/l TECHNIQUE: Multidetector row helical CT of the chest was performed with angiographic protocol. Willis l and sagittal reformations were obtained. Coronal and sagittal MIPS were obtained from the axial bin a set and were submitted for review. Automated dose lowering techniques and/or adjustment according to patient size were utilized for this exam. CT DOSE: 349.83 mGycm Comparison: Comparison is made to low-dose CT chest 05/31/2021, chest radiograph 07/21/2022, and CT s oft tissue neck 07/25/2022 FINDINGS: Lungs and pleura: There is a moderate right and small left pleural effusion. Multifocal groundglass a nd a few scattered consolidative opacities are seen. Atelectasis is noted. Heart and pericardium: Heart size is normal. No pericardial effusion. Vessels: No evidence of pulmonary embolism. Mediastinum and nicol: Unremarkable. Chest wall and lower neck: Subcentimeter axillary lymph nodes noted. Abdomen: Unremarkable. Bones: Unremarkable. IMPRESSION: 1. Moderate right and small left pleural effusion with associated atelectasis. 2. Groundglass and consolidative opacities compatible with pneumonia. These opacities have increased from exam of 07/25/2022 ACT 112: Negative or not required by law. Electronically signed by: Florencio Beckham M.D. 07/29/2022 7:10 PM
--- NOTE | 2022-07-29 20:06 | Hospitalist Progress Note ---
Date of Service July 29, 2022 Assessment & Plan (1) Dysphagia: Plan: POD #2 s/p EGD by Dr Cline - esophageal stenosis found upper 1/3 of the esophagus, s/p dilatation. Likely cause of his dysphagia. MRI brain 07/27 without acute or chronic CVA. CT soft tissue neck without obstructing neck mass, etc. Video swallow results - cricopharyngeal bar was likely 2nd esophageal stenosis. He is tolerating diet & liquid at this time. (2) Cricopharyngeal dysphagia: Plan: video swallow with cricopharyngeal bar s/p EGD 07/27 with esophageal stenosis which was the likely cause of the bar seen s/p dilatation appreciate GI assistance dysphagia improved (3) Acute on chronic pancreatitis: Plan: CT AP on 07/15 showed evidence favoring pancreatitis and also large calculus within the pancreatic duct within the pancreatic head, just proximal to the ampulla measuring 1.3 x 0.6 cm with mild pancreatic ductal dilation. - S/p ERCP on 07/16 with large gallbladder stone removed. Biliary sphincterectomy and stent placed to be removed in 3 months. ERCP performed by Dr Isabel. - Tolerated clear liquid after surgery; advanced to full liquids on 07/17, and low-fat by 07/19. However, he then started having dysphagia as noted above. recent lipase wnl minimal chronic abd pain on exam - tylenol prn low fat diet (4) Pneumonia: Plan: b/l; suspected aspiration in light of #1 above initially on augmentin/doxy changed to cefepime/doxy received 4+ days of IV cefepime cefepime d/c completing doxy course received 5 days of IV dexamethasone repeat COVID test 07/24 negative due to c/o pleuritic pain in his chest b/l I obtained CT chest - no PEs, but b/l groundglass & consolidative opacities seen b/l effusions (parapneumonic?) etiology of pneumonia - aspiration? atypical? viral? fungal? other? I asked Dr Schneider from pulmonary to see in consult (5) Hypoxemia: Plan: 2nd to pneumonia, possibly aspiration o2 sats wnl; not on supplemental O2 (6) GERD without esophagitis: Plan: EGD 07/27 with esophageal stenosis and mild gastritis but no esophagitis. Cont PPI twice daily Cont carafate qid see above re: dysphagia (7) Pancreatic duct obstruction: Plan: S/p ERCP as above (8) Alcohol use disorder: Plan: No signs of etoh withdrawal at this time Cont thiamine (increase to 200mg BID), folate, and b12 supplementation B12 level wnl folate low - increased folate supplementation to 2mg/day (9) Seizure disorder: Plan: He follows with a neurologist in [place]. Possibly has a seizure disorder in addition to several alcohol-related seizures per prior neuro notes. - Continue Lamictal. - Neurology consulted on admission in the beginning of the year, EEG: Borderline abnormal awake/drowsy EEG with evidence of mild generalized and left temporal/left parietal slowing. No epileptiform abnormalities. 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 (10) COPD (chronic obstructive pulmonary disease): Plan: probable mild exacerbation in setting of pneumonia s/p 5 days of IV dexamethasone wheezing resolved thus stopped steroids cont bronchodilators (11) Calculus of pancreatic duct: Plan: s/p ERCP with stent deployment (12) DVT prophylaxis: Plan: lovenox daily (13) Hypokalemia: Plan: repleted resolved (14) Tobacco dependence: Plan: cont nicoderm 14mg/day (15) Folate deficiency: Plan: despite 1mg of folate daily level remains low increased to 2mg/day repeat level 1 month (16) Hypothyroidism: Plan: TSH 7 in light of fatigue and host of other symptoms may benefit from Rx started synthroid 25mcg daily repeat TSH 6 weeks (17) Mesial temporal sclerosis: Plan: as seen on brain MRI 07/27 this is the likely cause of his chronic seizure d/o (18) Dizziness: Plan: MRI brain negative orthostatics negative (19) Fall: Plan: patient mentioned this 2 days ago unwitnessed no injuries noted on exam patient reminded to call for assistance when getting OOB Plan cont PT/OT- he has been cleared for home by both services appreciate speech therapy consult/recs await Dr Schneider's consult tomorrow for any other pulmonary recs updated pt's significant other on 07/28 Admission and Anticipated Discharge Date Admission Date: July 15, 2022 Subjective patient lying in bed watching TV ambulating in room to bathroom tolerating all food/beverage although he is "eating small amounts" this is not unusual for him - he tends to eat small meals at home only no vomiting no dysphagia or choking on food minimal chronic epigastric pain no diarrhea main complaint is "when I take a deep breath I can feel it in my chest" he states "this is what brought me here" (on 07/15 at admission it was due to abdominal pain, nausea and emesis - NOT pulmonary complaints) when asked if he wants to go home he says "I don't have a ride" and "I thought I was going home on Sunday" mentions that his significant other does not drive, and that they have no other family/friends in the area Review of Systems Review of Systems: gen - no fevers, no chills, appetite fair at best, fatigued cv - mild pleuritic cp b/l pulm - scant cough, no dyspnea GI - minimal epigastric pain, no N/V Physical Exam Physical Exam: gen - thin, NAD, looks about the same as yesterday; resting in bed; no cough; no respiratory distress voice - mildly hoarse - no change mouth - MMM, no lesions, no thrush, no erythema neck - no JVD heart - RRR, s1 s2, no murmur lungs - mildly decreased BS bases only R>L; otherwise CTA b/l; no rales or wheeze abd - soft, NT today, BS+, no HSM, no peritoneal signs ext - no edema, pulses 2+ b/l psych - flat affect Results & Data Results & Data ([facility]) Vital Signs (Past 12 Hours) Vital Signs Temp Pulse Resp BP Pulse Ox O2 Del Method 07/29/22 15:11 36.5 C 87 16 152/78 H 97 Room Air Laboratory Results Laboratory Results - last 24 hr 07/29/22 07/29/22 05:55 05:55 WBC 14.54 H RBC 2.64 L Hgb 9.6 L Hct 26.7 L MCV 101.1 H MCH 36.4 H MCHC 36.0 RDW Std Deviation 55.3 H RDW Coeff of Brianda 14.9 H Plt Count 456 H MPV 9.6 Sodium 139 Potassium 3.5 Chloride 108 H Carbon Dioxide 27 Anion Gap 4 BUN 3 L Creatinine 0.36 L Est Cr Clr Drug Dosing 204.6 Est GFR ( Amer) > 150.0 Est GFR (Non-Af Amer) 132.9 BUN/Creatinine Ratio 8.3 L Glucose 84 Calcium 7.8 L Magnesium 1.8 Diagnostic Findings Chest CTA 07/29/22 16:17 CT angio chest PE protocol CLINICAL HISTORY: pleuritic chest pain b/l TECHNIQUE: Multidetector row helical CT of the chest was performed with angiographic protocol. Coronal and sagittal reformations were obtained. Coronal and sagittal MIPS were obtained from the axial data set and were submitted for review. Automated dose lowering techniques and/or adjustment according to patient size were utilized for this exam. CT DOSE: 349.83 mGycm Comparison: Comparison is made to low-dose CT chest 05/31/2021, chest radiograph 07/21/2022, and CT soft tissue neck 07/25/2022 FINDINGS: Lungs and pleura: There is a moderate right and small left pleural effusion. Multifocal groundglass and a few scattered consolidative opacities are seen. Atelectasis is noted. Heart and pericardium: Heart size is normal. No pericardial effusion. Vessels: No evidence of pulmonary embolism. Mediastinum and nicol: Unremarkable. Chest wall and lower neck: Subcentimeter axillary lymph nodes noted. Abdomen: Unremarkable. Bones: Unremarkable. IMPRESSION: 1. Moderate right and small left pleural effusion with associated atelectasis. 2. Groundglass and consolidative opacities compatible with pneumonia. These opacities have increased from exam of 07/25/2022 ACT 112: Negative or not required by law. Electronically signed by: Florencio Beckham M.D. 07/29/2022 7:10 PM PG Care Time/CCT Total # of Minutes Spent Total Time Spent with Patient: Total time spent is greater than 50% in coordination of care (as documented) at patient's floor/unit and/or counseling patient: Coding Level of Care Code 24518 Subseq Hosp Care Lvl 2 Diagnoses Dysphagia R13.10 Cricopharyngeal dysphagia R13.13 Acute on chronic pancreatitis K85.90; K86.1 Pneumonia J18.9 Hypoxemia R09.02 GERD without esophagitis K21.9 Pancreatic duct obstruction K86.89 Alcohol use disorder F19.90 Seizure disorder G40.909 COPD (chronic obstructive pulmonary disease) J44.9 Calculus of pancreatic duct K86.89 DVT prophylaxis Z29.9 Hypokalemia E87.6 Tobacco dependence F17.200 Folate deficiency E53.8 Hypothyroidism E03.9 Mesial temporal sclerosis G93.81 Dizziness R42 Fall W19.XXXA
[2022-07-29] MEDS: ENOXAPARIN INJ 40 MG/0.4 ML SYR SQ SCH (20:52)
[2022-07-30] MEDS: LEVOTHYROXINE SODIUM 25 MCG TABLET PO SCH (05:58)
[2022-07-30 06:11] LABS: Basophils # (auto) 0.05 K/uL (0-0.2); Basophils % (auto) 0.3 %; Eosinophils # (auto) 0.23 K/uL (0-0.50); Eosinophils % (auto) 1.5 %; Hematocrit (blood only) 27.7 % (40.1-51.0); Immature Granulocytes # (auto) 0.23 K/uL (0.00-0.02); Immature Granulocytes % (auto) 1.5 %; Lymphocytes # (auto) 2.61 K/uL (1.2-3.4); Lymphocytes % (auto) 16.9 %; Mean Corpuscular Hemoglobin 36.6 pg (25.0-34.0); Mean Corpuscular Hgb Conc 36.1 g/dL (32.0-36.0); Mean Corpuscular Volume 101.5 fL (80.0-100.0); Mean Platelet Volume 9.6 fL (9.4-12.4); Monocytes # (auto) 1.55 K/uL (0.24-0.82); Monocytes % (auto) 10.1 %; Neutrophils # (auto) 10.75 K/uL (1.4-6.5); Neutrophils % (auto) 69.7 %; Platelet Count 478 K/uL (130-400); RDW Coefficient of Variation 15.2 % (11.5-14.5); RDW Standard Deviation 56.9 fL (36.4-46.3); Red Blood Count 2.73 M/uL (4.63-6.08); White Blood Count 15.42 K/ul (4.8-10.8)
[2022-07-30 06:48] LABS: BUN Creatinine Ratio 7.7 (10-20); C Reactive Protein 6.22 mg/dl (0-0.5); Calcium 7.6 mg/dl (8.5-10.1); Creatinine Clr Calc Pharmacy 188.9 ml/min; Est GFR (African American) 149.1 ml/min; Est GFR (Non-African American) 128.6 ml/min; Potassium 3.6 mmol/L (3.5-5.1)
[2022-07-30] MEDS: SUCRALFATE 1 GM/10 ML UDC PO SCH ×4 (07:27→20:20)
[2022-07-30] MEDS: guaiFENesin 600 MG TABCR PO SCH ×2 (07:28→20:21)
[2022-07-30] MEDS: CYANOCOBALAMIN (B-12) 500 MCG TABLET PO SCH (07:28)
[2022-07-30] MEDS: FOLIC ACID 1 MG TAB PO SCH (07:28)
[2022-07-30] MEDS: PANTOprazole 40 MG TAB PO SCH ×2 (07:28→20:21)
[2022-07-30] MEDS: lamoTRIgine 100 MG TAB PO SCH ×2 (07:28→20:21)
[2022-07-30] MEDS: PANCREAZE (LIPASE 10,500U) CAP PO SCH ×3 (07:29→17:13)
[2022-07-30] MEDS: THIAMINE HCL 100 MG TAB PO SCH (07:29)
[2022-07-30] MEDS: SERTRALINE HCL 100 MG TABLET PO SCH (07:29)
[2022-07-30] MEDS: NICOTINE 14 MG/24 HR PATCH TD SCH (07:29)
[2022-07-30] MEDS ORDERED: FUROSEMIDE 40 MG/4 ML VIAL IV ONE (08:16)
--- NOTE | 2022-07-30 08:18 | Pulmonary Consultation ---
Date of Consultation July 30, 2022 Assessment & Plan (1) Tobacco dependence: (2) Pleural effusion: (3) Multifocal pneumonia: (4) Abnormal chest CT: Plan CT chest 07/29/2022 personally reviewed: Patchy groundglass opacities appreciated bilaterally upper and lower lobes more on the right upper and right middle lobe Bilateral pleural effusion appreciated, moderate on the right, small on the left No significant mediastinal lymphadenopathy No evidence of PE -- Abnormal chest CT with bilateral groundglass opacities Multifocal pneumonia Patient was started on Rocephin which was changed to cefepime Patient finished a course of doxycycline BNP 66 Procalcitonin 0.12, CRP 6.22 Covid-19 PCR, influenza A/B, RSV negative Nasal MRSA negative -- Bilateral pleural effusion Likely from the IV fluids that he got for pancreatitis treatment Plan: Follow-up 2D echo Give a dose of Lasix 40 mg a day. Keep the patient negative balance Patient has already completed the course of antibiotics. Repeat CT chest in 6 weeks Was discussed with Dr. Gan Please note the above document was generated using voice recognition software. It may contain grammatical, syntax or spelling errors.Any formal questions or concerns about the content, text or information contained within the body of this dictation should be directly addressed to the provider for clarification. History of Present Illness Attending Physician: Regan Gan History of Present Illness 62-year-old male who was admitted to the hospital for acute on chronic pancreatitis Past medical history: Seizure disorder, GERD, alcohol abuse, COPD not on any inhalers at home Patient was clinically improving but he was complaining of pleuritic chest pain yesterday for which CTA chest was done and thus pulmonary were consulted At the time of examination patient was saturating 96% on room air. He was not in any respiratory distress Complained of pain in the upper belly on taking deep breaths. Denied any chest pain. No shortness of breath. Denies any coughing. No chest congestion. No dysuria, no diarrhea Has been afebrile. Social history: Approximately [id number] smoking history, currently smoking a pack a day. 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 No history of lung cancer in the family Allergies Allergy/AdvReac Type Severity Reaction Status Date / Time No Known Allergies Allergy Verified 07/15/22 16:18 Home Medications Medication Instructions Recorded Confirmed Type cyanocobalamin (vitamin B-12) 1,000 mcg PO DAILY #0 tabs 08/10/21 07/15/22 Rx 1,000 mcg tablet (Vitamin B-12) sertraline 100 mg tablet 100 mg PO DAILY #90 tabs 12/07/21 07/15/22 Rx ipratropium 20 mcg-albuterol 100 1 puff inhalation QID PRN 07/15/22 07/15/22 History mcg/actuation mist for inhalation Shortness Of Breath (Combivent Respimat) lamotrigine 100 mg tablet 100 mg PO BID 07/15/22 07/15/22 History (Lamictal) Patient History Medical History Alcohol abuse Alcohol withdrawal seizure Cervical spondylosis COPD (chronic obstructive pulmonary disease) Degenerative disc disease Encounter for pre-operative examination GERD without esophagitis Hypertension Kidney lesion Renal Cyst -CT of Abd noted 02/18/21 first describes 7 mm left renal lesion, hyperdense cyst versus solid renal neoplasm. A nonemergent dedicated renal CT scan or MRI is recommended in follow-up -Renal CT 02/19/21-7 mm left renal lesion in question appeared hyperdense to renal parenchyma on the noncontrast portion of the study and did not demo nstrate significant enhancement. This lesion is felt to represent a hyperdense cyst. A 12 month follow-up study would seem prudent. -Renal CT 05/31/21-Stable 9 mm hyperdense/hemorrhagic cyst within the left kidney, There is a 6 mm hypodense lesion within the left kidney which is technically too small to characterize but favors a simple cyst. Vertebral artery stenosis Vertigo no medications Surgical History History of colonoscopy History of esophagogastroduodenoscopy (EGD) 10/19/20 [facility] Hx of neck surgery (05/2018) cervical fusion (C2-C3?) Full ROM S/P epidural steroid injection Status post tooth extraction Family History Aunt Parkinson disease Cerebral aneurysm Mother Cerebral aneurysm Depression Anemia Uncle Cerebral aneurysm Other No family history of adverse response to anesthesia Denies family history of Ovarian cancer Prostate cancer Myocardial infarction Breast cancer Lung cancer Colorectal cancer Social History Smoking Status: Current every day smoker Tobacco Type: Cigarettes Age Started Using Tobacco: 17; packs per day: 1; Cigarettes Per Day: 20; Second Hand Exposure: Yes; Hx Alcohol Use: Yes Alcohol type: hard liquor Alcohol Intake Frequency Comment: fifth of vodka per week Hx Substance Use: Yes Prescribed Medications: Marijuana Last Used Substance: Days (ago) Substance Use Type Other:: Daily Preferred Language: Iraqi Communication Ability: Effective Visual Impairment: No Limitations Hearing Ability: Normal Mold Shifter Required: No Beliefs That Will Affect Care: None marital status: Single Current Living Situation: Significant Other Current Living Situation Comment: [place] current occupational status: disabled Feels Safe at Home: Yes Childhood Exposure to Second-Hand Smoke: Yes Diet Comment: regular caffeine: No during the past year weight has: remained stable Dental Care, Regularly: No Physical Activity Frequency: Does not Exercise Seatbelt Use: always Sunscreen Use: No Assistive Devices: Cane Review of Systems Review of Systems: All systems reviewed & are unremarkable except as noted in HPI & below Physical Exam Physical Exam: Constitutional: No acute distress HEENT: EOMI, PERRLA Respiratory system: Decreased air entry bilaterally, no wheeze, no rhonchi, mild crackles bilateral lower lobes CVS: S1-S2 positive, no murmurs or gallops Abdomen: Soft, nontender, nondistended, positive bowel sounds x4 Extremities: +2 pulses bilaterally radialis/ dorsalis pedis, no cyanosis, no edema Neuro: Awake alert oriented x3 Psych: Normal mood and affect G/U: No Lantigua Musculoskeletal: 1.5 cm soft mobile nodule appreciated on the left upper back Skin: no rashes, warm and dry Lymphatic: no cervical or axillary lymphadenopathy Results & Data Results & Data ([facility]) Vital Signs (Past 12 Hours) Vital Signs Temp Pulse Resp BP BP Pulse Ox O2 Del Method 07/30/22 06:11 37 C 89 20 153/80 H 95 Room Air 07/29/22 20:49 37.4 C 85 16 146/81 H 95 Room Air Laboratory Results 07/30/22 05:27 07/30/22 05:27 PG Care Time/CCT Total # of Minutes Spent Total Time Spent with Patient: Total time spent is greater than 50% in coordination of care (as documented) at patient's floor/unit and/or counseling patient: Coding Level of Care Code 39619 Initial Inpt Care Lvl 3 Diagnoses Tobacco dependence F17.200 Pleural effusion J90 Multifocal pneumonia J18.[address] R93.89
[2022-07-30] MEDS: METOCLOPRAMIDE HCL 5 MG TABLET PO SCH ×3 (09:06→17:13)
[2022-07-30] MEDS: LOPERAMIDE HCL 2 MG CAP PO PRN (12:07)
[2022-07-30] MEDS: ENOXAPARIN INJ 40 MG/0.4 ML SYR SQ SCH (20:21)
--- NOTE | 2022-07-30 20:43 | Hospitalist Progress Note ---
Date of Service July 30, 2022 Assessment & Plan (1) Dysphagia: Plan: POD #3 s/p EGD by Dr Cline - esophageal stenosis found upper 1/3 of the esophagus, s/p dilatation. Likely cause of his dysphagia. MRI brain 07/27 without acute or chronic CVA. CT soft tissue neck without obstructing neck mass, etc. Video swallow results - cricopharyngeal bar was likely 2nd esophageal stenosis. He is tolerating diet & liquid at this time without issue. (2) Cricopharyngeal dysphagia: Plan: video swallow with cricopharyngeal bar s/p EGD 07/27 with esophageal stenosis which was the likely cause of the bar seen s/p dilatation appreciate GI assistance dysphagia improved/resolved (3) Acute on chronic pancreatitis: Plan: CT AP on 07/15 showed evidence favoring pancreatitis and also large calculus within the pancreatic duct within the pancreatic head, just proximal to the ampulla measuring 1.3 x 0.6 cm with mild pancreatic ductal dilation. - S/p ERCP on 07/16 with large gallbladder stone removed. Biliary sphincterectomy and stent placed to be removed in 3 months. ERCP performed by Dr Isabel. - Tolerated clear liquid after surgery; advanced to full liquids on 07/17, and low-fat by 07/19. However, he then started having dysphagia as noted above. recent lipase wnl minimal chronic abd pain on exam - tylenol prn low fat diet pt reports ongoing diarrhea? would increase creon to 2 capsules each meal c diff testing this admission NEGATIVE (4) Pneumonia: Plan: b/l; suspected aspiration in light of #1 above initially on augmentin/doxy changed to cefepime/doxy received 4+ days of IV cefepime cefepime d/c completed doxy course received 5 days of IV dexamethasone - now d/c repeat COVID test 07/24 negative due to c/o pleuritic pain in his chest b/l I obtained CT chest - no PEs, but b/l groundglass & consolidative opacities seen b/l effusions (parapneumonic?) etiology of pneumonia - aspiration? atypical? viral? fungal? other? appreciate Dr Schneider consult he sent urine for legionella he also ordered mycoplasma IgM he advised diuresis - lasix IV given today; tomorrow perhaps just 20mg of PO lasix - defer to oncoming hospitalist he advised f/u CT in 6 weeks (5) Hypoxemia: Plan: 2nd to pneumonia, possibly aspiration - RESOLVED o2 sats wnl; not on supplemental O2 (6) GERD without esophagitis: Plan: EGD 07/27 with esophageal stenosis and mild gastritis but no esophagitis. Cont PPI twice daily Cont carafate qid see above re: dysphagia (7) Pancreatic duct obstruction: Plan: S/p ERCP as above (8) Alcohol use disorder: Plan: No signs of etoh withdrawal at this time Cont thiamine (increase to 200mg BID), folate, and b12 supplementation B12 level wnl folate low - increased folate supplementation to 2mg/day (9) Seizure disorder: Plan: He follows with a neurologist in [place]. Possibly has a seizure disorder in addition to several alcohol-related seizures per prior neuro notes. - Continue Lamictal. - Neurology consulted on admission in the beginning of the year, EEG: Borderline abnormal awake/drowsy EEG with evidence of mild generalized and left temporal/left parietal slowing. No epileptiform abnormalities. 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 (10) COPD (chronic obstructive pulmonary disease): Plan: probable mild exacerbation in setting of pneumonia s/p 5 days of IV dexamethasone wheezing resolved thus stopped steroids cont bronchodilators (11) Calculus of pancreatic duct: Plan: s/p ERCP with stent deployment needs f/u with Dr Isabel in 3 months for stent removal (12) DVT prophylaxis: Plan: lovenox daily (13) Hypokalemia: Plan: repleted resolved recheck BMP with mag in am due to IV lasix today (14) Tobacco dependence: Plan: cont nicoderm 14mg/day (15) Folate deficiency: Plan: despite 1mg of folate daily level remains low increased to 2mg/day repeat level 1 month (16) Hypothyroidism: Plan: TSH 7 in light of fatigue and host of other symptoms may benefit from Rx started synthroid 25mcg daily repeat TSH 6 weeks (17) Mesial temporal sclerosis: Plan: as seen on brain MRI 07/27 this is the likely cause of his chronic seizure d/o (18) Dizziness: Plan: MRI brain negative orthostatics negative (19) Fall: Plan: per his report occurred several days ago -- but was unwitnessed no injuries noted on exam patient reminded to call for assistance when getting OOB Plan cont PT/OT- he has been cleared for home by both services appreciate speech therapy consult/recs updated pt's significant other on 07/28 care d/w Dr Schneider, pulmonary home on Tuesday 07/31 -- needs the following -- 1. folate 2mg daily 2. synthroid 25mcg daily, f/u TSH 6 weeks 3. ?1-2 days of PO lasix? 4. would increase creon to 2 capsules each meal 5. f/u pulmonary in 6 weeks - will need repeat CT chest then 6. f/u [facility] 3 months for pancreatic duct stent retrieval Admission and Anticipated Discharge Date Admission Date: July 15, 2022 Subjective no new issues feels ok baseline abd discomfort present - no worse than typical, no nausea or emesis oddly the nursing flowsheets state he ate 100% of breakfast when I mentioned that he got upset and disputed this, stating "don't know what they are talking about" (??) no dysphagia we discussed the pulmonary consult and the diuretic used today - he voided significantly with this Review of Systems Review of Systems: gen - no fevers or chills; appetite - he disputes the amounts listed cv - denies any pleuritic pain today pulm - no dyspnea, no cough GI - no nausea / emesis Physical Exam Physical Exam: gen - thin, NAD, looks same as all other visits; no cough, no respiratory distress voice - mildly hoarse - no change mouth - MMM, no lesions, no thrush, no erythema neck - no JVD heart - RRR, s1 s2, no murmur lungs - minimally decreased BS bases; otherwise CTA b/l; no rales or wheeze abd - soft, NT today, BS+, no HSM, no peritoneal signs ext - no edema, pulses 2+ b/l psych - flat affect Results & Data Results & Data ([facility]) Vital Signs (Past 12 Hours) Vital Signs Temp Pulse Resp BP Pulse Ox O2 Del Method 07/30/22 14:22 37.1 C 91 H 16 112/66 96 Room Air Laboratory Results Laboratory Results - last 24 hr 07/30/22 07/30/22 07/30/22 05:27 05:27 05:27 WBC 15.42 H RBC 2.73 L Hgb 10.0 L Hct 27.7 L MCV 101.5 H MCH 36.6 H MCHC 36.1 H RDW Std Deviation 56.9 H RDW Coeff of Brianda 15.2 H Plt Count 478 H MPV 9.6 Immature Gran % (Auto) 1.5 Neut % (Auto) 69.7 Lymph % (Auto) 16.9 Cassia % (Auto) 10.1 Eos % (Auto) 1.5 Baso % (Auto) 0.3 Neut # (Auto) 10.75 H Lymph # (Auto) 2.61 Cassia # (Auto) 1.55 H Eos # (Auto) 0.23 Baso # (Auto) 0.05 Immature Gran # (Auto) 0.23 H Sodium 139 Potassium 3.6 Chloride 106 Carbon Dioxide 27 Anion Gap 6 BUN 3 L Creatinine 0.39 L Est Cr Clr Drug Dosing 188.9 Est GFR ( Amer) 149.1 Est GFR (Non-Af Amer) 128.6 BUN/Creatinine Ratio 7.7 L Glucose 86 Calcium 7.6 L C-Reactive Protein 6.22 H B-Natriuretic Peptide Procalcitonin 0.12 Urine Legionella Ag 07/30/22 07/30/22 05:27 09:30 WBC RBC Hgb Hct MCV MCH MCHC RDW Std Deviation RDW Coeff of Brianda Plt Count MPV Immature Gran % (Auto) Neut % (Auto) Lymph % (Auto) Cassia % (Auto) Eos % (Auto) Baso % (Auto) Neut # (Auto) Lymph # (Auto) Cassia # (Auto) Eos # (Auto) Baso # (Auto) Immature Gran # (Auto) Sodium Potassium Chloride Carbon Dioxide Anion Gap BUN Creatinine Est Cr Clr Drug Dosing Est GFR ( Amer) Est GFR (Non-Af Amer) BUN/Creatinine Ratio Glucose Calcium C-Reactive Protein B-Natriuretic Peptide 66 Procalcitonin Urine Legionella Ag Pending PG Care Time/CCT Total # of Minutes Spent Total Time Spent with Patient: Total time spent is greater than 50% in coordination of care (as documented) at patient's floor/unit and/or counseling patient: Coding Level of Care Code 37500 Subseq Hosp Care Lvl 3 Diagnoses Dysphagia R13.10 Cricopharyngeal dysphagia R13.13 Acute on chronic pancreatitis K85.90; K86.1 Pneumonia J18.9 Hypoxemia R09.02 GERD without esophagitis K21.9 Pancreatic duct obstruction K86.89 Alcohol use disorder F19.90 Seizure disorder G40.909 COPD (chronic obstructive pulmonary disease) J44.9 Calculus of pancreatic duct K86.89 DVT prophylaxis Z29.9 Hypokalemia E87.6 Tobacco dependence F17.200 Folate deficiency E53.8 Hypothyroidism E03.9 Mesial temporal sclerosis G93.81 Dizziness R42 Fall W19.XXXA
[2022-07-31] MEDS: LEVOTHYROXINE SODIUM 25 MCG TABLET PO SCH (05:57)
[2022-07-31 07:17] LABS: Anion Gap 4 (3-11); BUN Creatinine Ratio 14.3 (10-20); Blood Urea Nitrogen 5 mg/dl (6-23); Calcium 7.9 mg/dl (8.5-10.1); Carbon Dioxide 28 mmol/L (21-32); Chloride 104 mmol/L (98-107); Creatinine Clr Calc Pharmacy 210.5 ml/min; Est GFR (African American) > 150.0 ml/min; Est GFR (Non-African American) 134.5 ml/min; Glucose 102 mg/dl (70-99(Fasting)); Magnesium 1.6 mg/dl (1.7-2.4); Potassium 3.3 mmol/L (3.5-5.1); Sodium 136 mmol/L (136-145)
[2022-07-31] MEDS: METOCLOPRAMIDE HCL 5 MG TABLET PO SCH ×2 (07:58→12:51)
[2022-07-31] MEDS: PANCREAZE (LIPASE 10,500U) CAP PO SCH ×2 (07:58→12:51)
[2022-07-31] MEDS: CYANOCOBALAMIN (B-12) 500 MCG TABLET PO SCH (07:58)
[2022-07-31] MEDS: guaiFENesin 600 MG TABCR PO SCH (07:59)
[2022-07-31] MEDS: lamoTRIgine 100 MG TAB PO SCH (07:59)
[2022-07-31] MEDS: NICOTINE 14 MG/24 HR PATCH TD SCH (07:59)
[2022-07-31] MEDS: THIAMINE HCL 100 MG TAB PO SCH (07:59)
[2022-07-31] MEDS: FOLIC ACID 1 MG TAB PO SCH (07:59)
[2022-07-31] MEDS: PANTOprazole 40 MG TAB PO SCH (07:59)
[2022-07-31] MEDS: SERTRALINE HCL 100 MG TABLET PO SCH (07:59)
[2022-07-31] MEDS: SUCRALFATE 1 GM/10 ML UDC PO SCH ×2 (07:59→12:51)
--- NOTE | 2022-07-31 11:15 | XCELERA ---
[id number]
[2022-07-31] MEDS ORDERED: POTASSIUM CHLORIDE CRTAB 20 MEQ TABCR PO STA (14:38)
--- NOTE | 2022-07-31 14:38 | Pulmonology Progress Note ---
Date of Service July 31, 2022 Assessment & Plan (1) Volume overload: Plan: The patient is nearly 12 L positive since hospital admission. Please avoid any additional IV fluids. We will place an order for 20 mg of p.o. Lasix now and daily. This can be followed up by the hospitalist service and his PCP as an outpatient. (2) Aspiration pneumonitis: Plan: His procalcitonin was unremarkable on the . It is thought that he has cricopharyngeal dysphagia and he is status post EGD earlier this hospitalization with dilation. He completed a short course of broad-spectrum antibiotics. No further antibiotics required. I suspect that he likely had aspiration pneumonitis. (3) Hypoxemia: Plan: Resolved at rest. Possibly will present with exertion likely from volume overload. Maintain saturations above 90%. (4) Abnormal chest CT: Plan: Small bilateral pleural effusion seen on CT chest with groundglass changes secondary to aspiration pneumonitis and volume overload. I suspect these findings are all acute. Recommend repeating a chest x-ray in 4 to 6 weeks which can be done by his PCP to ensure resolution of the effusions and infiltrate. Recommend maintaining euvolemic status. He should continue yearly low-dose lung cancer screening given his history of tobacco abuse. Smoking cessation encouraged. Next low-dose CT would be 07/29/2023. His last low-dose CT was 05/31/2021 which was lung RADS category 1. (5) Hypokalemia: Plan: Replacing potassium in an effort to be able to diurese the patient with Lasix. Will defer further electrolyte replacement to the hospitalist service. (6) Hypomagnesemia: Plan: Same as above. Plan I have no further input at this time. Thank for the consult. Please call with questions. Admission and Anticipated Discharge Date Admission Date: July 15, 2022 Subjective 62-year-old male seen and examined this afternoon. Patient eating lunch. Denies any distress. Family member bedside. No shortness of breath at rest. No chest pain. No nausea or vomiting. Currently saturating well on room air. Review of Systems Review of Systems: All systems reviewed & are unremarkable except as noted in HPI & below Physical Exam Physical Exam: Constitutional: Patient appears to be of their stated age. Patient is in no apparent distress. Patient is well-developed. Eyes: Pupils are equal round and reactive to light. Conjunctivae are normal. Anicteric sclera. Ears nose, mouth and throat: No obvious deformity seen. Neck: Trachea is midline. Visual inspection is normal. Respiratory: Mild crackles at the bases. No tachypnea or wheezing. Cardiovascular: Regular rate and rhythm. No murmurs. No edema. Gastrointestinal: Normal bowel sounds, soft, nontender and nondistended. No hepatosplenomegaly noted. Musculoskeletal: No cyanosis. Patient is able to move all extremities. Skin: No rashes, warm dry and intact. Neurologic: No obvious focal neurological deficits seen. Psychiatric: Alert and oriented x3 with a euthymic affect. Results & Data Results & Data ([facility]) Vital Signs (Past 12 Hours) Vital Signs Temp Pulse Resp BP Pulse Ox O2 Del Method 07/31/22 08:23 36.8 C 82 16 117/68 92 Room Air PG Care Time/CCT Total # of Minutes Spent Total Time Spent with Patient: Total time spent is greater than 50% in coordination of care (as documented) at patient's floor/unit and/or counseling patient: Coding Level of Care Code 60367 Subseq Hosp Care Lvl 3 Diagnoses Volume overload E87.70 Aspiration pneumonitis J69.0 Hypoxemia R09.[address] R93.89 Hypokalemia E87.6 Hypomagnesemia E83.42
[2022-07-31] MEDS ORDERED: MAGNESIUM SULFATE / D5W 1 GM/100 ML BAG IV SCH (14:45)
[2022-07-31] MEDS ORDERED: FUROSEMIDE 20 MG TAB PO SCH (14:45)
--- NOTE | 2022-07-31 16:38 | Discharge Summary ---
Date of Service July 31, 2022 Admission HPI Per Admitting Provider Jorge Coronado is a 62-year-old male with a past medical history of alcohol use disorder with a history of alcohol withdrawal seizures as well as seizure disorder, GERD, and COPD is presenting today with 1 month of abdominal pain, nausea, and vomiting. Patient quit drinking 1 week ago, previously drinking a 1/5th of a handle (750 ml) per week. States his abdominal pain has been around for a long time, however for the past 2 weeks he has been vomiting at least once a day. He has not noticed any blood in his vomit, states vomiting occurs after meals but also sporadically, as he has not been eating over the past 4 days due to pain, but is still vomiting. He has not had any bowel movements over the past 3 to 4 days, but previously had not noticed any changes to them, specifically denies dark, tarry stools, blood with them, danial colored stools, or chronic diarrhea. No urinary symptoms. He is 7 days without his last alcoholic drink, and failure is a history of alcoholic seizures and general seizure di sorder he denies any seizures at home or palpitations, irritability, night sweats. Over the past year he has felt more cognitively "slow "saying that he often forgets what he is talking about my conversation, but this is unchanged over the past week and he has had no focal neurological changes. On presentation he has been tachycardic with HR 452247, otherwise vital signs within normal limits and stable. Labs significant for white count of 17, elevated MCV without anemia, lipase 205, anion gap 27, bicarb 17, T bili 1.4, AST 72. No electrode abnormalities, ALT and alk phos wnl. UA is pending. He is COVID-negative. CT AP: Mild stranding adjacent to the pancreas and adjacent stomach favoring pancreatitis, with gastritis in the differential but less likely. Large calculus within the pancreatic duct within the pancreatic head, just proximal to the ampulla measuring 1.3 x 0.6 cm with mild pancreatic ductal dilation. There are 2 cystic foci within the pancreas measuring up to 9 mm new from May 2021. Pancreatic calcifications suggestive of chronic pancreatitis. Severe hepatic steatosis. No biliary ductal dilation. Mild wall thickening of the distal esophagus favoring esophagitis. Principal Diagnosis dysphagia Discharge Exam gen - thin, NAD, no cough, no respiratory distress voice - mildly hoarse mouth - MMM, no lesions, no thrush, no erythema neck - no JVD heart - RRR, s1 s2, no murmur lungs - minimally decreased BS bases; otherwise CTA b/l; no rales or wheeze abd - soft, NT today, BS+, no HSM, no peritoneal signs ext - no edema, pulses 2+ b/l psych - flat affect Discharge Data Allergies Allergy/AdvReac Type Severity Reaction Status Date / Time No Known Allergies Allergy Verified 07/15/22 16:18 Consultations 07/15/22 16:30 ED Decision to Admit Stat 07/15/22 20:00 Consult Gastroenterology Routine 07/29/22 20:03 Consult Pulmonology Routine Procedures Performed Operation Date: 07/16/22 07:15 Actual Procedures p Endoscopic Retrograde Cholangiopancreatography with a Sphincterotomy, Removal of Stone, and Biliary Stent Instertion(Not Applicable) - Benoit Isabel MD Operation Date: 07/27/22 16:55 Actual Procedures p EGD Dilatation - Tee Cline, DO Ordered Studies 07/15/22 14:34 CT abd pelvis IV con only Stat 07/16/22 FL ERCP biliary ductal Routine 07/25/22 15:18 CT neck soft tissues [CT soft tissue neck w con] Routine 07/26/22 07:30 FL barium swallow Routine 07/26/22 13:30 FL video swallow Routine 07/27/22 09:30 MR brain wo con Urgent 07/29/22 16:17 CT angio chest PE protocol Routine Hospital Course (1) Dysphagia: POD #3 s/p EGD by Dr Cline - esophageal stenosis found upper 1/3 of the esophagus, s/p dilatation. Likely cause of his dysphagia. MRI brain 07/27 without acute or chronic CVA. CT soft tissue neck without obstructing neck mass, etc. Video swallow results - cricopharyngeal bar was likely 2nd esophageal stenosis. He is tolerating diet & liquid at this time without issue. (2) Cricopharyngeal dysphagia: video swallow with cricopharyngeal bar s/p EGD 07/27 with esophageal stenosis which was the likely cause of the bar seen s/p dilatation appreciate GI assistance dysphagia improved/resolved (3) Acute on chronic pancreatitis: CT AP on 07/15 showed evidence favoring pancreatitis and also large calculus within the pancreatic duct within the pancreatic head, just proximal to the ampulla measuring 1.3 x 0.6 cm with mild pancreatic ductal dilation. - S/p ERCP on 07/16 with large gallbladder stone removed. Biliary sphincterectomy and stent placed to be removed in 3 months. ERCP performed by Dr Iasbel. - Tolerated clear liquid after surgery; advanced to full liquids on 07/17, and low-fat by 07/19. However, he then started having dysphagia as noted above. recent lipase wnl minimal chronic abd pain on exam - tylenol prn low fat diet pt reports ongoing diarrhea? would increase creon to 2 capsules each meal c diff testing this admission NEGATIVE (4) Pneumonia: b/l; suspected aspiration in light of #1 above initially on augmentin/doxy changed to cefepime/doxy received 4+ days of IV cefepime cefepime d/c completed doxy course received 5 days of IV dexamethasone - now d/c repeat COVID test 07/24 negative due to c/o pleuritic pain in his chest b/l I obtained CT chest - no PEs, but b/l groundglass & consolidative opacities seen b/l effusions (parapneumonic?) etiology of pneumonia - aspiration? atypical? viral? fungal? other? appreciate Dr Schneider consult he sent urine for legionella he also ordered mycoplasma IgM he advised diuresis - lasix IV given today; he advised f/u X ray in 6 weeks (5) Hypoxemia: 2nd to pneumonia, possibly aspiration - RESOLVED o2 sats wnl; not on supplemental O2 (6) GERD without esophagitis: EGD 07/27 with esophageal stenosis and mild gastritis but no esophagitis. Cont PPI twice daily Cont carafate qid see above re: dysphagia (7) Pancreatic duct obstruction: S/p ERCP as above (8) Alcohol use disorder: No signs of etoh withdrawal at this time Cont thiamine (increase to 200mg BID), folate, and b12 supplementation B12 level wnl folate low - increased folate supplementation to 2mg/day (9) Seizure disorder: He follows with a neurologist in [place]. Possibly has a seizure disorder in addition to several alcohol-related seizures per prior neuro notes. - Continue Lamictal. - Neurology consulted on admission in the beginning of the year, EEG: Borderline abnormal awake/drowsy EEG with evidence of mild generalized and left temporal/left parietal slowing. No epileptiform abnormalities. 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 (10) COPD (chronic obstructive pulmonary disease): probable mild exacerbation in setting of pneumonia s/p 5 days of IV dexamethasone wheezing resolved thus stopped steroids cont bronchodilators (11) Calculus of pancreatic duct: s/p ERCP with stent deployment needs f/u with Dr Isabel in 3 months for stent removal (12) DVT prophylaxis: lovenox daily (13) Hypokalemia: repleted resolved recheck BMP with mag in am due to IV lasix today (14) Tobacco dependence: cont nicoderm 14mg/day (15) Folate deficiency: despite 1mg of folate daily level remains low increased to 2mg/day repeat level 1 month (16) Hypothyroidism: TSH 7 in light of fatigue and host of other symptoms may benefit from Rx started synthroid 25mcg daily repeat TSH 6 weeks (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 folate 2mg daily 2. synthroid 25mcg daily, you will need a followup TSH test in 6 weeks Take levothyroxine(syntrhoid)once a day in the morning, ideally at least 30 minutes before having breakfast or a drink containing caffeine, like tea or coffee. Food and caffeinated drinks can both stop your body taking in levothyroxine properly so it does not work as well. 3. Will recommend daily lasix with potassium. Recommend your PCP rechecks you kidney numbers. 4. Will increase creon to 2 capsules each meal 5. You will need followup chest x ray in 6 weeks - please see your PCP in 1-2 weeks 6. f/u [facility] 3 months for pancreatic duct stent retrieval Please continue yearly low-dose lung cancer screening Smoking cessation encouraged. Next low-dose CT would be 07/29/2023. Total Time Total Time Spent Total Time Spent (In Minutes): 35 Discharge Plan Discharge Items Patient Disposition: Home - Self-Care Reason For Visit: PANCREATITI W/ PANCREATIC DUCT STONE Discharge Diagnosis: pancreatitis with pancreatic duct stone. Activity: Resume your previous activity Non-emergency contact: Primary Care Provider Call non-emergency contact if: you have any medication questions Follow-up/Referrals: [place] Vasquez DO [Primary Care Provider] - Diet: Low Fiber and Low Fat Addtl Attending Provider Instructions: Recommendations: 1. folate 2mg daily 2. synthroid 25mcg daily, you will need a followup TSH test in 6 weeks Take levothyroxine(syntrhoid)once a day in the morning, ideally at least 30 minutes before having breakfast or a drink containing caffeine, like tea or coffee. Food and caffeinated drinks can both stop your body taking in levothyroxine properly so it does not work as well. 3. Will recommend daily lasix with potassium. Recommend your PCP rechecks you kidney numbers. 4. Will increase creon to 2 capsules each meal 5. You will need followup chest x ray in 6 weeks - please see your PCP in 1-2 weeks 6. f/u [facility] 3 months for pancreatic duct stent retrieval Please continue yearly low-dose lung cancer screening Smoking cessation encouraged. Next low-dose CT would be 07/29/2023. Pending Studies at Discharge: No Stand-Alone Forms: [facility] [place], Smoking Cessation Medications and DC Order Prescriptions: New furosemide [Lasix] 20 mg tablet 20 mg PO DAILY Qty: 30 0RF Creon 36,000-114,000- 180,000 unit Capsule,Delayed Release(Dr/Ec) 2 cap PO TIDM 28 Days Qty: 56 0RF levothyroxine [Synthroid] 25 mcg Tablet 25 mcg PO DAILYBB Qty: 30 0RF pantoprazole 40 mg Tablet,Delayed Release (Dr/Ec) 40 mg PO DAILY Qty: 30 0RF thiamine HCl (vitamin B1) 100 mg Tablet 100 mg PO QAM Qty: 30 0RF folic acid 1 mg Tablet 2 mg PO QAM Qty: 30 0RF nicotine 7 mg/24 hr Patch 24 Hour 14 mg transdermal QAM Qty: 28 0RF potassium chloride 10 mEq tablet extended release 10 meq PO DAILY Qty: 30 0RF Continued sertraline 100 mg tablet 100 mg PO DAILY Qty: 90 2RF cyanocobalamin (vitamin B-12) [Vitamin B-12] 1,000 mcg Tablet 1,000 mcg PO DAILY Qty: 0 0RF Rx Instructions: purchase [id number] lamotrigine [Lamictal] 100 mg Tablet 100 mg PO BID Combivent Respimat 20-100 mcg/actuation mist 1 puff inhalation QID PRN (Reason: Shortness Of Breath) Rx Instructions: PER SPOUSE "USES ONLY WHEN NEEDED". space evenly during waking hours Discharge Orders: Discharge Order (Routine); Ordered 07/31/22 Ordered By: Jose Alfredo Rodriguez Admission Data Admit Date/Time: 07/15/22 17:16 Attending Provider: Jose Alfredo Rodriguez Admit Provider: Regan Preston Primary Care Provider: [place] Vasquez Other Providers: Regan Preston ; Benoit Isabel ; Berenice Schneider Other Interventions: Discharge Summary Assessment (RN) Last Done: 07/31/22 17:09 Coding Level of Care Code D/C DAY MANAGEMENT >30 MINS Diagnoses Dysphagia R13.10 Cricopharyngeal dysphagia R13.13 Acute on chronic pancreatitis K85.90; K86.1 Pneumonia J18.9 Hypoxemia R09.02 GERD without esophagitis K21.9 Pancreatic duct obstruction K86.89 Alcohol use disorder F19.90 Seizure disorder G40.909 COPD (chronic obstructive pulmonary disease) J44.9 Calculus of pancreatic duct K86.89 DVT prophylaxis Z29.9 Hypokalemia E87.6 Tobacco dependence F17.200 Folate deficiency E53.8 Hypothyroidism E03.9 Mesial temporal sclerosis G93.81 Dizziness R42 Fall W19.XXXA
== END 2022-07-31 17:22 | disposition home or self-care (01) | DRG 438 ==
LOC: ED 14:03 → 2N 17:16 → SUATTDRO 17:16 → 2N 19:53 → 3N 07-20 05:39
DX: G40.802 Other epilepsy, not intractable, without status epilepticus; E46 Unspecified protein-calorie malnutrition; R09.02 Hypoxemia; E83.42 Hypomagnesemia; K21.9 Gastro-esophageal reflux disease without esophagitis; F17.210 Nicotine dependence, cigarettes, uncomplicated; J91.8 Pleural effusion in other conditions classified elsewhere; I10 Essential (primary) hypertension; K22.2 Esophageal obstruction; E87.6 Hypokalemia; G93.81 Temporal sclerosis; E03.9 Hypothyroidism, unspecified; E86.0 Dehydration; E53.8 Deficiency of other specified B group vitamins; J44.1 Chronic obstructive pulmonary disease with (acute) exacerbation; E87.79 Other fluid overload; R42 Dizziness and giddiness; K86.1 Other chronic pancreatitis; Z79.899 Other long term (current) drug therapy; T50.3X5A Adverse effect of electrolytic, caloric and water-balance agents, initial encounter; J69.0 Pneumonitis due to inhalation of food and vomit; F10.10 Alcohol abuse, uncomplicated; R13.19 Other dysphagia; Z20.822 Contact with and (suspected) exposure to COVID-19; K29.70 Gastritis, unspecified, without bleeding; K86.89 Other specified diseases of pancreas; R19.7 Diarrhea, unspecified; R29.6 Repeated falls; R65.10 Systemic inflammatory response syndrome (SIRS) of non-infectious origin without acute organ dysfunction; K85.10 Biliary acute pancreatitis without necrosis or infection

== ENCOUNTER 2022-11-29 08:25 | Inpatient (IN) ==
[2022-11-29] MEDS ORDERED: SODIUM CHLORIDE 0.9% 500 ML IV STA (08:33)
[2022-11-29] MEDS ORDERED: ONDANSETRON INJ 2 MG/ML 2 ML VIAL IV STA (08:46)
[2022-11-29] MEDS ORDERED: MoRPHine SULFATE 4 MG/ML 1 ML CARP\\VIAL IV STA (08:46)
[2022-11-29] MEDS ORDERED: MoRPHine SULFATE 4 MG/ML 1 ML CARP\\VIAL IV PRN (08:46)
--- NOTE | 2022-11-29 08:50 | Emergency Department Note ---
Impression & Plan Acute upper abdominal pain, Acute pancreatitis, Leukocytosis, Vomiting ED Provider Note NAME: RIMA COLLAZO AGE: 62 SEX: M : 1960 ARRIVES VIA: Ambulance INFORMANT: [Patient] ED PROVIDER(S): [Almas De La Rosa MD] CHIEF COMPLAINT: Abdominal pain HISTORY OF PRESENT ILLNESS: The patient is a 62-year-old male with a history of alcohol abuse and pancreatitis. Around 3 weeks ago, he had 2 biliary stents removed and then 1 stent placed. The patient states that yesterday around noon, about 20 hours ago, he began having diffuse abdominal pain. The pain persisted. Last night, h e began vomiting. He has pain this morning that is worse than yesterday. The pain feels similar to his previous pancreatitis. There has been no cough or congestion or shortness of breath. No diarrhea. No fever. He rates his pain as a 9/10. Of note, the patient typically drinks about a pint of vodka daily. He has not had alcohol in 2 days because of his symptoms. PMHx/PSHx: See Below SOCIAL HISTORY: See Below. PHYSICAL EXAM: GENERAL: Patient is in no acute distress. Thin and frail. HEENT: No acute trauma, normocephalic atraumatic, mucous membranes moist, no nasal congestion. NECK: No stridor, no adenopathy, no meningismus, trachea is midline. LUNGS: Clear to auscultation bilaterally, no wheeze, no rhonchi, breath sounds equal. HEART: Very mildly tachycardic, regular rhythm, no murmurs. ABDOMEN: Soft, moderately tender in the epigastrium, no peritonitis. EXTREMITIES: No cyanosis or edema, full range of motion of all the joints without pain or difficulty, no signs for acute trauma. NEUROLOGIC: Oriented x 3, no acute motor or sensory deficits, no focal weakness. SKIN: No rash, no jaundice, no diaphoresis. DIFFERENTIAL DIAGNOSIS: Pancreatitis, biliary colic, acute cholecystitis, gastritis, ulcer, diverticulitis, appendicitis, dehydration, among others. EMERGENCY DEPARTMENT COURSE/PROCEDURES: Prior/Outside records reviewed: GI notes, EMS notes. ECG per my interpretation: Indication was abdominal pain. The ECG shows a normal sinus rhythm with some sinus arrhythmia. There is some baseline ar tifact. The rate is 67. There is no ST elevation, no PVCs. The QTc is 464. Continuous Cardiac Monitoring per my interpretation: An order was placed for continuous cardiac monitoring. The monitor shows a rate of 81 with normal sinus rhythm. MEDICAL DECISION MAKING: There is a mild leukocytosis, this could be consistent with infection or his vomiting. There was a normal hemoglobin and platelet count. No renal failure or significant electrolyte abnormality. Alk phos slightly elevated, the remaining liver enzymes were unremarkable. Lipase was elevated consistent with pancreatitis. ECG showed a normal sinus rhythm, no obvious ischemia. Cardiac enzyme testing x1 was not consistent with acute cardiac injury. Alcohol level was undetectable. COVID test returned negative. Chest x-ray per my review did not show mediastinal widening, pneumonia or pneumothorax. Abdominal and pelvis CT suggests acute on chronic pancreatitis. On exam, the patient was tender in the epigastrium, he was not febrile or toxic. Patient received IV saline, 500 cc. He was given IV Zofran, IV morphine. The patient does feel improved, he is currently resting comfortably. The patient requires a hospital stay. He appears to have an acute pancreatitis as the cause for his presentation. I did speak with the patient at length, I spoke with case management, the on-call hospitalist was consulted. DISPOSITION: Patient's presentation and findings warrant a hospital stay. Past Med/Surg History Medical History Alcohol abuse Cervical spondylosis COPD (chronic obstructive pulmonary disease) controlled w/ inhaler use Cricopharyngeal dysphagia Per 08/2022 records- stable; video swallow with cricopharyngeal bar; s/p EGD 07/27/22 with esophageal stenosis which was like cause of the bar seen- s/p dilation- dysphagia improved/resolved Degenerative disc disease Depression Esophageal dysphagia Improved per 08/2022 PCP records GERD without esophagitis History of pancreatitis (~02/2020) S/p ERCP on 07/16/22 with large gallbladder stone removed. Biliary sphincterectomy and stent placed to be removed in 3 months. Hx of aspiration pneumonitis 07/2022- treated with abx Hx of pleural effusion Hx of seizure disorder Last seizure 08/2021- has not had one since started lamictal (did confirmed 10/27/22 with patient's caregiver that he is taking Lamictal daily) Hypertension Hypothyroidism Macrocytic anemia Marijuana use Mesial temporal sclerosis Stable per 10/18/22 neuro note Other symptoms and signs involving cognitive functions and awareness Poor historian Thrombocytopenia Tobacco dependence Vertebral artery stenosis Per 07/2020 Neck CTA- severe stenosis of the left vertebral artery of the C4 level due to osteophytes Surgical History History of colonoscopy History of esophagogastroduodenoscopy (EGD) 10/19/20 [facility] Hx of neck surgery (05/2018) cervical fusion (C2-C3?) Full ROM S/P epidural steroid injection Status post tooth extraction Family History Aunt Parkinson disease Cerebral aneurysm Mother Cerebral aneurysm Depression Anemia Uncle Cerebral aneurysm Other No family history of adverse response to anesthesia Denies family history of Ovarian cancer Prostate cancer Myocardial infarction Breast cancer Lung cancer Colorectal cancer Social History Smoking Status: Current every day smoker Tobacco Type: Cigarettes Age Started Using Tobacco: 17; packs per day: 1; Cigarettes Per Day: 20 per day- advised; Second Hand Exposure: No; Hx Alcohol Use: Yes Alcohol type: hard liquor Alcohol Intake Frequency Comment: fifth of vodka per week Hx Substance Use: Yes (advised) Prescribed Medications: Marijuana Last Used Sarah bstance: Days (ago) Substance Use Type Other:: Daily Preferred Language: Ivorian Communication Ability: Effective Visual Impairment: No Limitations Hearing Ability: Normal Automobile Detailer Required: No Beliefs That Will Affect Care: None marital status: Single Current Living Situation: Spouse, Family and Significant Other Current Living Situation Comment: [place] current occupational status: disabled Feels Safe at Home: Yes Safety Concerns: Feels Safe At This Time Childhood Exposure to Second-Hand Smoke: Yes Diet Comment: regular caffeine: No during the past year weight has: remained stable Dental Care, Regularly: No Physical Activity Frequency: Does not Exercise Seatbelt Use: always Sunscreen Use: No Assistive Devices: Cane Allergies Allergies Allergy/AdvReac Type Severity Reaction Status Date / Time No Known Allergies Allergy Verified 11/03/22 09:17 Home Meds Home Medications Medication Instructions Recorded Confirmed ipratropium 20 mcg-albuterol 100 1 puff inhalation QID PRN 07/15/22 11/29/22 mcg/actuation mist for inhalation Shortness Of Breath (Combivent Respimat) Previous Rx's Medication Instructions Recorded cyanocobalamin (vitamin B-12) 1,000 mcg PO DAILY #30 tabs 08/29/22 1,000 mcg tablet (Vitamin B-12) pantoprazole 40 mg tablet,delayed 40 mg PO DAILY #30 tabs 08/29/22 release sertraline 100 mg tablet 100 mg PO DAILY #90 tabs 08/29/22 thiamine HCl (vitamin B1) 100 mg 100 mg PO QAM #30 tabs 08/29/22 tablet lamotrigine 100 mg tablet 100 mg PO BID #60 tabs 10/18/22 (Lamictal) magnesium oxide 400 mg PO DAILY #90 caps 10/18/22 folic acid 1 mg tablet 2 mg PO QAM #60 tabs 11/27/22 levothyroxine 25 mcg tablet 25 mcg PO DAILYBB #30 tabs 11/28/22 (Synthroid) Results & Data (ED) Vital Signs Vital Signs - 24 hr 11/29/22 08:34 11/29/22 08:34 11/29/22 08:35 Temperature 37.1 C 37.1 C Temperature Source Oral Oral Pulse Rate 97 H 81 Pulse Rate [Left Apical] 97 H Respiratory Rate 17 17 Respiratory Effort / Characteristics Non-Labored Respiratory Depth Normal Blood Pressure 157/90 H Blood Pressure [Right Arm] 157/90 H Blood Pressure Mean 112 Blood Pressure Mean [Right Arm] 112 Pulse Oximetry 99 99 Oxygen Delivery Method Room Air Room Air Sepsis Recent Fever Within 48 Hours No Sepsis New/Unexplained Change in Mental Status N/A Sepsis Action Taken by Nursing No Action Required 11/29/22 09:00 11/29/22 09:30 11/29/22 10:30 Temperature Temperature Source Pulse Rate 66 79 72 Pulse Rate [Left Apical] Respiratory Rate 16 15 14 Respiratory Effort / Characteristics Respiratory Depth Blood Pressure 155/85 H 167/86 H 171/94 H Blood Pressure [Right Arm] Blood Pressure Mean 108 113 119 Blood Pressure Mean [Right Arm] Pulse Oximetry 99 99 98 Oxygen Delivery Method Room Air Room Air Room Air Sepsis Recent Fever Within 48 Hours Sepsis New/Unexplained Change in Mental Status Sepsis Action Taken by Nursing 11/29/22 11:00 11/29/22 12:03 11/29/22 12:00 Temperature Temperature Source Pulse Rate 70 73 68 Pulse Rate [Left Apical] Respiratory Rate 14 16 Respiratory Effort / Characteristics Respiratory Depth Blood Pressure 169/95 H 167/83 H Blood Pressure [Right Arm] Blood Pressure Mean 119 111 Blood Pressure Mean [Right Arm] Pulse Oximetry 99 97 Oxygen Delivery Method Room Air Room Air Sepsis Recent Fever Within 48 Hours Sepsis New/Unexplained Change in Mental Status Sepsis Action Taken by Nursing 11/29/22 12:30 11/29/22 13:00 Temperature Temperature Source Pulse Rate 60 75 Pulse Rate [Left Apical] Respiratory Rate 14 17 Respiratory Effort / Characteristics Respiratory Depth Blood Pressure 171/88 H 177/97 H Blood Pressure [Right Arm] Blood Pressure Mean 115 123 Blood Pressure Mean [Right Arm] Pulse Oximetry 99 94 Oxygen Delivery Method Room Air Room Air Sepsis Recent Fever Within 48 Hours Sepsis New/Unexplained Change in Mental Status Sepsis Action Taken by Residential Medications Current Medication List: was personally reviewed by me Laboratory Data Attestation: I reviewed the patient's lab results. 11/29/22 08:40 11/29/22 08:40 Lab Results 11/29/22 11/29/22 11/29/22 Range/Units 08:40 08:40 09:01 WBC 14.22 H (4.8-10.8) K/ul RBC 5.14 (4.70-6.10) M/uL Hgb 17.5 (14.0-18.0) g/dl Hct 48.9 (42.0-52.0) % MCV 95.1 (80.0-100.0) fL MCH 34.0 (25.0-34.0) pg MCHC 35.8 (32.0-36.0) g/dL RDW Std Deviation 50.8 H (36.4-46.3) fL RDW Coeff of Brianda 14.6 H (11.5-14.5) % Plt Count 391 (130-400) K/uL MPV 9.9 (9.4-12.4) fL Immature Gran % (Auto) 0.4 % Neut % (Auto) 74.1 % Lymph % (Auto) 15.7 % [place] % (Auto) 9.1 % Eos % (Auto) 0.3 % Baso % (Auto) 0.4 % Neut # (Auto) 10.55 H (1.40-6.50) K/uL Lymph # (Auto) 2.23 (1.2-3.4) K/uL [place] # (Auto) 1.29 H (0.11-0.59) K/uL Eos # (Auto) 0.04 (0-0.50) K/uL Baso # (Auto) 0.06 (0-0.2) K/uL Immature Gran # (Auto) 0.05 (0.01-0.20) K/uL Sodium 141 (136-145) mmol/L Potassium 3.5 (3.5-5.1) mmol/L Chloride 103 (98-107) mmol/L Carbon Dioxide 24 (21-32) mmol/L Anion Gap 14 H (3-11) BUN 9 (6-23) mg/dl Creatinine 0.60 (0.6-1.4) mg/dl Est Cr Clr Drug Dosing 108.0 ml/min Est GFR ( Amer) 124.9 ml/min Est GFR (Non-Af Amer) 107.8 ml/min BUN/Creatinine Ratio 15.0 (10-20) Glucose 98 (70-99(Fasting)) mg/dl Calcium 9.6 (8.6-10.3) mg/dl Magnesium 1.7 (1.7-2.4) mg/dl Total Bilirubin 0.8 (0.2-1.0) mg/dl AST 18 (13-39) U/L ALT 7 (7-52) U/L Alkaline Phosphatase 117 H (34-104) U/L Troponin I High Sens 6.3 (0-20) pg/ml Total Protein 7.3 (6.0-8.3) gm/dl Albumin 3.7 (3.4-5.0) gm/dl Globulin 3.6 (2.5-4.0) gm/dl Albumin/Globulin Ratio 1.0 (0.9-2) Lipase 426 H (11-82) U/L Ethyl Alcohol mg/dL < 10.0 (<10.0) mg/dl SARS-CoV-2, RNA, NAAT (NEGATIVE) 11/29/22 Range/Units 09:04 WBC (4.8-10.8) K/ul RBC (4.70-6.10) M/uL Hgb (14.0-18.0) g/dl Hct (42.0-52.0) % MCV (80.0-100.0) fL MCH (25.0-34.0) pg MCHC (32.0-36.0) g/dL RDW Std Deviation (36.4-46.3) fL RDW Coeff of Brianda (11.5-14.5) % Plt Count (130-400) K/uL MPV (9.4-12.4) fL Immature Gran % (Auto) % Neut % (Auto) % Lymph % (Auto) % [place] % (Auto) % Eos % (Auto) % Baso % (Auto) % Neut # (Auto) (1.40-6.50) K/uL Lymph # (Auto) (1.2-3.4) K/uL [place] # (Auto) (0.11-0.59) K/uL Eos # (Auto) (0-0.50) K/uL Baso # (Auto) (0-0.2) K/uL Immature Gran # (Auto) (0.01-0.20) K/uL Sodium (136-145) mmol/L Potassium (3.5-5.1) mmol/L Chloride (98-107) mmol/L Carbon Dioxide (21-32) mmol/L Anion Gap (3-11) BUN (6-23) mg/dl Creatinine (0.6-1.4) mg/dl Est Cr Clr Drug Dosing ml/min Est GFR ( Amer) ml/min Est GFR (Non-Af Amer) ml/min BUN/Creatinine Ratio (10-20) Glucose (70-99(Fasting)) mg/dl Calcium (8.6-10.3) mg/dl Magnesium (1.7-2.4) mg/dl Total Bilirubin (0.2-1.0) mg/dl AST (13-39) U/L ALT (7-52) U/L Alkaline Phosphatase (34-104) U/L Troponin I High Sens (0-20) pg/ml Total Protein (6.0-8.3) gm/dl Albumin (3.4-5.0) gm/dl Globulin (2.5-4.0) gm/dl Albumin/Globulin Ratio (0.9-2) Lipase (11-82) U/L Ethyl Alcohol mg/dL (<10.0) mg/dl SARS-CoV-2, RNA, NAAT NEGATIVE (NEGATIVE) Administered Medications Chlordiazepoxide HCl (Chlordiazepoxide Hcl 25 Mg Cap) 25 mg PO Q6H MAKSIM Stop: 11/30/22 08:01 Last Admin: 11/29/22 15:43 Dose: 25 mg Documented By: ANA Hydromorphone HCl (Hydromorphone Inj 1 Mg/Ml Syringe) 1 mg IV Q4H PRN PRN Reason: Severe Pain (7,8,9,10) on NRS Stop: 12/13/22 11:40 Last Admin: 11/29/22 13:12 Dose: 1 mg Documented By: CAITLYN Magnesium Sulfate/Dextrose (Magnesium Sulfate / D5w) 1 gm in 100 mls @ 50 mls/hr IV Q2H MAKSIM Stop: 11/29/22 17:59 Last Admin: 11/29/22 15:43 Dose: 50 mls/hr Documented By: ANA Discontinued Medications Sodium Chloride (Nss) 500 mls @ 999 mls/hr IV .Q31M STA Stop: 11/29/22 09:03 Last Infusion: 11/29/22 11:12 Dose: 0 mls/hr Documented By: Admin: 11/29/22 08:59 Dose: 999 mls/hr Documented By: CAITLYN Thiamine HCl 100 mg/ Folic (Acid 1 mg/ Sodium Chloride) 1,001.2 mls @ 500 mls/hr IV .Q2H1M MAKSIM; Protocol Stop: 11/29/22 16:15 Last Admin: 11/29/22 15:34 Dose: 500 mls/hr Documented By: ANA Ioversol (Optiray 350 100ml) 86 ml IV ONCE ONE Stop: 11/29/22 10:09 Last Admin: 11/29/22 10:03 Dose: 86 ml Documented By: ALICIA Miscellaneous (Remove Nicoderm Patch) 1 each N/A DAILY@1159 [facility] Stop: 12/29/22 11:58 Last Admin: 11/29/22 14:16 Dose: Not Given Documented By: ANA Morphine Sulfate (Morphine Sulfate 4 Mg/Ml 1 Ml Carp\Vial) 4 mg IV NOW STA Stop: 11/29/22 08:47 Last Admin: 11/29/22 08:59 Dose: 4 mg Documented By: CAITLYN Multivitamins/Minerals (Cerovite Adv Formula Tab) 1 tab PO ONE STA Stop: 11/29/22 13:45 Last Admin: 11/29/22 15:37 Dose: 1 tab Documented By: ANA Nicotine (Nicotine 14 Mg/24 Hr Patch) 14 mg TD DAILY@1200 ONE Stop: 11/29/22 12:01 Last Admin: 11/29/22 12:24 Dose: 14 mg Documented By: QGV Ondansetron HCl (Ondansetron Inj 2 Mg/Ml 2 Ml Vial) 4 mg IV NOW STA Stop: 11/29/22 08:47 Last Admin: 11/29/22 08:59 Dose: 4 mg Documented By: [facility] Imaging Data Radiologist's Impression: Abdomen/Pelvis CT 11/29/22 08:33 CT SCAN OF THE ABDOMEN AND PELVIS WITH IV CONTRAST CLINICAL HISTORY: Generalized abdominal pain. Nausea and vomiting. COMPARISON STUDY: Abdominal CT dated 07/15/2022 and 05/31/2021. TECHNIQUE: Following the IV administration of 86 cc of Optiray 350, CT scan of the abdomen and pelvis is performed from the lung bases to the proximal femora. Images are reviewed in the axial, sagittal, and coronal planes. IV contrast was administered without complication. A dose lowering technique was utilized adhering to the principles of ALARA. CT DOSE: 263.31 mGycm FINDINGS: Lung bases: The heart is normal in size and without pericardial effusion. The lung bases are clear. Liver: The contrast-enhanced liver is normal in size, contour, and attenuation. There is no intrahepatic biliary ductal dilatation. The hepatic veins and portal veins are patent. Calcifications in the right lobe of the diaphragm are unchanged. Gallbladder: Unremarkable. Spleen: Normal in size and attenuation. Pancreas: There is inflammation and fluid seen around the pancreatic body and tail consistent with acute pancreatitis. The gland enhances throughout. The pancreatic duct is mildly dilated, measuring up to 5 mm diameter. There are stone fragments seen within the hepatic duct at the ampulla, as well as within the distal pancreatic duct. There are also tiny foci of gas within the pancreat ic duct. Peripheral calcifications may be related to chronic pancreatitis. No organized peripancreatic fluid collection is seen. The splenic vein is patent. Adrenal glands: Unremarkable. Kidneys: The contrast enhanced kidneys are normal in size and without hydronephrosis. The kidneys enhance symmetrically. A 9 mm complex/hyperdense cyst is again seen in the left kidney on image #130. Additional subcentimeter cortical hypodensities likely represent cysts but are too small for definitive characterization. No enhancing cortical mass lesion is seen. Abdominal vasculature: The abdominal aorta is normal in course and caliber noting mild to moderate atherosclerotic calcification. Bowel: There is no bowel obstruction. The appendix is well-visualized and normal. Peritoneum: There is no intraperitoneal free air or abdominal ascites. There is a fat-containing umbilical hernia. Lymphadenopathy: None. Pelvic viscera: The prostate gland is mildly enlarged and heterogeneous. The bladder is decompressed, and the wall appears thickened/trabeculated indicating chronic outlet obstruction. Skeletal structures: No lytic or blastic lesions are seen. There is mild lumbosacral spondylosis. IMPRESSION: 1. Findings are consistent with acute on chronic pancreatitis. Correlate with clinical and laboratory findings. 2. The gland enhances throughout and no organized peripancreatic fluid collection is identified. 3. The pancreatic duct is mildly dilated and there are stones/fragments within the duct. There are also tiny foci of intraductal gas. This is nonspecific and may be related to recent instrumentation. Clinical correlation will be essential. 4. Additional findings as above. ACT 112: Negative or not required by law. Electronically signed by: Almas Shaffer M.D. 11/29/2022 10:26 AM Chest X-Ray 11/29/22 08:34 XR chest 1V portable HISTORY: Generalized abdominal pain. COMPARISON: Chest 07/21/2022. FINDINGS: No pneumothorax. No pleural effusions. The lungs are clear. The heart is normal in size. Cervical spinal fusion hardware is again noted. There are old, healed right-sided rib fractures. IMPRESSION: No acute process. ACT 112: Negative or not required by law. Electronically signed by: Deandre Ko M.D. 11/29/2022 9:17 AM Discharge Plan Visit Data Chief Complaint: Abdominal Pain ED Provider: Almas De La Rosa Discharge Problem: Acute upper abdominal pain, Acute pancreatitis, Leukocytosis, Vomiting Patient Disposition: Admitted As Inpatient Condition: Fair Discharge Instructions Interventions: ED Discharge Assessment Last Done: 11/29/22 13:24
[2022-11-29 09:14] LABS: Basophils # (auto) 0.06 K/uL (0-0.2); Basophils % (auto) 0.4 %; Eosinophils # (auto) 0.04 K/uL (0-0.50); Eosinophils % (auto) 0.3 %; Hematocrit (blood only) 48.9 % (42.0-52.0); Hemoglobin 17.5 g/dl (14.0-18.0); Immature Granulocytes # (auto) 0.05 K/uL (0.01-0.20); Immature Granulocytes % (auto) 0.4 %; Lymphocytes # (auto) 2.23 K/uL (1.2-3.4); Lymphocytes % (auto) 15.7 %; Mean Corpuscular Hgb Conc 35.8 g/dL (32.0-36.0); Mean Corpuscular Volume 95.1 fL (80.0-100.0); Mean Platelet Volume 9.9 fL (9.4-12.4); Monocytes # (auto) 1.29 K/uL (0.11-0.59); Monocytes % (auto) 9.1 %; Neutrophils # (auto) 10.55 K/uL (1.40-6.50); Neutrophils % (auto) 74.1 %; Platelet Count 391 K/uL (130-400); RDW Coefficient of Variation 14.6 % (11.5-14.5); RDW Standard Deviation 50.8 fL (36.4-46.3); Red Blood Count 5.14 M/uL (4.70-6.10); White Blood Count 14.22 K/ul (4.8-10.8)
--- NOTE | 2022-11-29 09:18 | XRay Report ---
XR chest 1V portable HISTORY: Generalized abdominal pain. COMPARISON: Chest 07/21/2022. FINDINGS: No pneumothorax. No pleural effusions. The lungs are clear. The heart is normal in size. Ce rvical spinal fusion hardware is again noted. There are old, healed right-sided rib fractures. IMPRESSION: No acute process. ACT 112: Negative or not required by law. Electronically signed by: Deandre Ko M.D. 11/29/2022 9:17 AM
[2022-11-29 09:27] LABS: Albumin Level 3.7 gm/dl (3.4-5.0); Bilirubin,Total 0.8 mg/dl (0.2-1.0); Calcium 9.6 mg/dl (8.6-10.3); Est GFR (African American) 124.9 ml/min; Est GFR (Non-African American) 107.8 ml/min; Globulin 3.6 gm/dl (2.5-4.0); Magnesium 1.7 mg/dl (1.7-2.4); Potassium 3.5 mmol/L (3.5-5.1); Total Protein 7.3 gm/dl (6.0-8.3)
[2022-11-29 09:31] LABS: Troponin I High Sensitivity 6.3 pg/ml (0-20)
[2022-11-29] MEDS ORDERED: OPTIRAY 350 100ml IV ONE (10:08)
--- NOTE | 2022-11-29 10:28 | CT Scan Report ---
CT SCAN OF THE ABDOMEN AND PELVIS WITH IV CONTRAST CLINICAL HISTORY: Generalized abdominal pain. Nausea and vomiting. COMPARISON STUDY: Abdominal CT dated 07/15/2022 and 05/31/2021. TECHNIQUE: Following the IV administration of 86 cc of Optiray 350, CT scan of the abdomen and pelvi s is performed from the lung bases to the proximal femora. Images are reviewed in the axial, sagittal , and coronal planes. IV contrast was administered without complication. A dose lowering technique wa s utilized adhering to the principles of ALARA. CT DOSE: 263.31 mGycm FINDINGS: Lung bases: The heart is normal in size and without pericardial effusion. The lung bases are clear. Liver: The contrast-enhanced liver is normal in size, contour, and attenuation. There is no intrahepa tic biliary ductal dilatation. The hepatic veins and portal veins are patent. Calcifications in the r ight lobe of the diaphragm are unchanged. Gallbladder: Unremarkable. Spleen: Normal in size and attenuation. Pancreas: There is inflammation and fluid seen around the pancreatic body and tail consistent with a cute pancreatitis. The gland enhances throughout. The pancreatic duct is mildly dilated, measuring up to 5 mm diameter. There are stone fragments seen within the hepatic duct at the ampulla, as well as within the distal pancreatic duct. There are also tiny foci of gas within the pancreatic duct. Periph eral calcifications may be related to chronic pancreatitis. No organized peripancreatic fluid collect ion is seen. The splenic vein is patent. Adrenal glands: Unremarkable. Kidneys: The contrast enhanced kidneys are normal in size and without hydronephrosis. The kidneys enh ance symmetrically. A 9 mm complex/hyperdense cyst is again seen in the left kidney on image #130. Ad ditional subcentimeter cortical hypodensities likely represent cysts but are too small for definitive characterization. No enhancing cortical mass lesion is seen. Abdominal vasculature: The abdominal aorta is normal in course and caliber noting mild to moderate at herosclerotic calcification. Bowel: There is no bowel obstruction. The appendix is well-visualized and normal. Peritoneum: There is no intraperitoneal free air or abdominal ascites. There is a fat-containing umbi lical hernia. Lymphadenopathy: None. Pelvic viscera: The prostate gland is mildly enlarged and heterogeneous. The bladder is decompressed, and the wall appears thickened/trabeculated indicating chronic outlet obstruction. Skeletal structures: No lytic or blastic lesions are seen. There is mild lumbosacral spondylosis. IMPRESSION: 1. Findings are consistent with acute on chronic pancreatitis. Correlate with clinical and laboratory findings. 2. The gland enhances throughout and no organized peripancreatic fluid collection is identified. 3. The pancreatic duct is mildly dilated and there are stones/fragments within the duct. There are al so tiny foci of intraductal gas. This is nonspecific and may be related to recent instrumentation. Cl inical correlation will be essential. 4. Additional findings as above. ACT 112: Negative or not required by law. Electronically signed by: Almas Shfafer M.D. 11/29/2022 10:26 AM
--- NOTE | 2022-11-29 11:23 | History & Physical Report ---
Date of Service November 29, 2022 Assessment & Plan (1) Acute on chronic pancreatitis: Plan: Acute on chronic pancreatitis 11/03/2022 had 2 stents removed from pancreatic duct and CBD, with 1 plastic pancreatic stent placed into the ventral duct With continued alcohol use, last drink 2 days prior to admission. Drinking approximately 1 pint of vodka/liquor per day. Additionally with some stone fragments seen on CT CTA/P: Acute on chronic pancreatitis. No peripancreatic fluid collection identified. Pancreatic duct mildly dilated with stone/fragments within the DOC and tiny foci of intraductal gas? Due to recent instrumentation - Lipase 426 Alcohol negative on admission Continue IV FM, n.p.o. at this time GI consulted for pancreatitis with recent ERCP/instrumentation and pancreatic duct stone fragments (2) Alcohol abuse: Plan: Alcohol abuse Patient with history of alcohol abuse, half pint of liquor per day. While he denies a history of etoh withdrawal/seizures he notes the last time he was without alcohol for 2 weeks was when he was in the hospital, endorses a history of non-alcoholic seizures, and has been drinking consistently since discharge in August Will admit on AWSS active protocol, +librium given hx of seizures an dhigh intake. Thiamine, folate given Seizure precautions Aspiration precautions (3) COPD (chronic obstructive pulmonary disease): Plan: Continue inhalers, lungs clear on admission (4) Cricopharyngeal dysphagia: Plan: Improved following esophageal dilation with prior endoscopy Aspiration precautions, patient denies difficulty eating/drinking in the last month (5) Mesial temporal sclerosis: Plan: w/ hx of seizure Last saw neurology 10/2022 - 07/2022 MRI of brain reportMild involutional changes. Minimal T2/FLAIR prolo ngation within the periventricular white matter may represent a degree of chronic microvascular ischemic disease. There is asymmetric atrophy of the left hippocampus/mesial temporal lobe. Cerebral venous sinuses and major arterial flow voids appear patent. The skull, orbits and soft tissues are unremarkable. Asymmetric atrophy of the left hippocampus. Correlate clinically to exclude mesial temporal sclerosis. Stable on Lamictal, continue to check and replete magnesium as required. -Continue Lamictal 100 mg twice daily, patient last took evening 11/28 Patient on AWSS precautions with Librium for history of seizure, regular alcohol use, and acute cessation of alcohol 2 days [employer] (6) Seizure disorder: Plan: As noted (7) Tobacco dependence: Plan: Nicotine patch. (8) Vertebral artery stenosis: Plan: No acute neurologic change, no acute change in management (9) GERD without esophagitis: Plan: GERD without esophagitis PPI twice daily (10) Hypothyroidism: Plan: Hypothyroidism Continue Synthroid 25 mcg History of Present Illness Primary Care Provider: [place] Vasquez DO Jorge is a 62-year-old male with a past medical history of alcohol use with withdrawal seizures, GERD, COPD last discharged 07/2022 after admission for quitting drinking after consuming 750 cc of liquor per week and his hospital course complicated by dysphagia with esophageal stenosis which improved s/p dilatation and acute on chronic pancreatitis with large calculus in pancreatic duct s/p ERCP with large gallbladder stone removal and biliary sphincterotomy with stent placement pending removal 3 months later, and additionally complicated by aspiration pneumonia which did not improve on Augmentin Doxy and which was treated with cefepime/Doxy. Patient was recently seen by GI 11/03/2022 and had 2 accidents removed from the pancreatic duct and CBD, pancreatic stones were found and complete removal was accomplished at that time. 1 plastic pancreatic stent was placed into the ventral pancreatic duct and Indocin was given to decrease the risk of postprocedural pancreatitis. Patient currently presents to the hospital with diffuse abdominal pain which b robert 1 day ago and has been persistent, similar in quality to prior pancreatitis, and associated with vomiting. Pain in the ER is 9/10. Stomach tight, crampy pain. +vomiting yesterday 11:30pm and 2x this morning. No blood, no melena, no clots. Brownish in color. BMs have been 'normal' nothing black/bloody/white/shook. Generally brown and soft, ~1-3x per day. Has not eaten much in a few days 'just don't have an appetite.' Denies pain with meals in the last week. Pain in his abdomen does not travel anywhere, [facility]. Alcohol: Stopped drinking in July for 2 weeks while inpatient, started drinking again in August. Drinks 1/2 pint vodka per day. Last drink was 2 days ago. Deneis withdrawal, shakes, seizures from EtoH. Does endorses history of 'seizures not from alcohol' for which he takes a medicine to prevent. Thinks this is lamictal, does not know his medications by heart. Has not taken medications today, took last night. Saw GI last month, pt is not sure if he still has a stent or not just knows he was supposed to followup with them last week but missed his appointment and has not rescheduled. Medical History: Reviewed Medications: Reviewed Surgical History: Reviewed Family history: Reviewed Allergies: Reviewed Social History: Etoh as noted in HPI. 1ppd tobacco use x 40 years. Code Status:DNR/DNI Allergies Allergy/AdvReac Type Severity Reaction Status Date / Time No Known Allergies Allergy Verified 11/03/22 09:17 Home Medications Medication Instructions Recorded Confirmed Type ipratropium 20 mcg-albuterol 100 1 puff inhalation QID PRN 07/15/22 11/03/22 History mcg/actuation mist for inhalation Shortness Of Breath (Combivent Respimat) cyanocobalamin (vitamin B-12) 1,000 mcg PO DAILY #30 tabs 08/29/22 11/03/22 Rx 1,000 mcg tablet (Vitamin B-12) pantoprazole 40 mg tablet,delayed 40 mg PO DAILY #30 tabs 08/29/22 11/03/22 Rx release sertraline 100 mg tablet 100 mg PO DAILY #90 tabs 08/29/22 11/03/22 Rx thiamine HCl (vitamin B1) 100 mg 100 mg PO QAM #30 tabs 08/29/22 11/03/22 Rx tablet lamotrigine 100 mg tablet 100 mg PO BID #60 tabs 10/18/22 11/03/22 Rx (Lamictal) magnesium oxide 400 mg PO DAILY #90 caps 10/18/22 11/03/22 Rx dwrwtn-xusrhlon-bzzdant 2 cap PO TIDM 4 weeks #56 caps 10/20/22 11/03/22 Rx 36,000-114,000-180,000 unit capsule,delay rel (Creon) folic acid 1 mg tablet 2 mg PO QAM #60 tabs 11/27/22 Rx levothyroxine 25 mcg tablet 25 mcg PO DAILYBB #30 tabs 11/28/22 Rx (Synthroid) Past Med/Surg History Medical History Alcohol abuse Cervical spondylosis COPD (chronic obstructive pulmonary disease) Cricopharyngeal dysphagia Degenerative disc disease Depression Esophageal dysphagia GERD without esophagitis History of pancreatitis (~02/2020) Hx of aspiration pneumonitis Hx of pleural effusion Hx of seizure disorder Hypertension Hypothyroidism Macrocytic anemia Marijuana use Mesial temporal sclerosis Other symptoms and signs involving cognitive functions and awareness Poor historian Thrombocytopenia Tobacco dependence Vertebral artery stenosis Surgical History History of colonoscopy History of esophagogastroduodenoscopy (EGD) Hx of neck surgery (05/2018) S/P epidural steroid injection Status post tooth extraction Family History Aunt Parkinson disease Cerebral aneurysm Mother Cerebral aneurysm Depression Anemia Uncle Cerebral aneurysm Other No family history of adverse response to anesthesia Denies family history of Ovarian cancer Prostate cancer Myocardial infarction Breast cancer Lung cancer Colorectal cancer Social History Smoking Status: Current every day smoker Tobacco Type: Cigarettes Age Started Using Tobacco: 17; packs per day: 1; Cigarettes Per Day: 20 per day- advised; Second Hand Exposure: No; Hx Alcohol Use: Yes Alcohol type: hard liquor Alcohol Intake Frequency Comment: fifth of vodka per week Hx Substance Use: Yes (advised) Prescribed Medications: Marijuana Last Used Substance: Days (ago) Substance Use Type Other:: Daily Preferred Language: Kiswahili Communication Ability: Effective Visual Impairment: No Limitations Hearing Ability: Normal Reference Data Expert Required: No Beliefs That Will Affect Care: None marital status: Single Current Living Situation: Spouse, Family and Significant Other Current Living Situation Comment: [place] current occupational status: disabled Feels Safe at Home: Yes Childhood Exposure to Second-Hand Smoke: Yes Diet Comment: regular caffeine: No during the past year weight has: remained stable Dental Care, Regularly: No Physical Activity Frequency: Does not Exercise Seatbelt Use: always Sunscreen Use: No Assistive Devices: None Review of Systems Review of Systems: All systems reviewed & are unremarkable except as noted in HPI & below Physical Exam Physical Exam: General: A&Ox3. NAD. Cooperative. HEENT: Atraumatic, normocephalic. Pulm: CTAB A&P. -wheezes, -rales, -rhonchi. Symmetrical chest rise. No increased work of breathing. No respiratory distress. Cardiac: RRR, -mrg. Radial pulses intact and symmetrical. Abdominal: Tender at the epigastrium and left upper quadrant, mild diffuse tenderness without rebound/guarding/rigidity Extremities: Warm, dry. Moves all extremities equally in bed. Sensation of soft touch intact in hands and feet bilaterally Results & Data Results & Data Vital Signs (Past 12 Hours) Vital Signs Temp Pulse Pulse Resp BP BP Pulse Ox 11/29/22 10:30 72 14 171/94 H 98 11/29/22 09:30 79 15 167/86 H 99 11/29/22 09:00 66 16 155/85 H 99 11/29/22 08:35 81 11/29/22 08:34 37.1 C 97 H 17 157/90 H 99 11/29/22 08:34 37.1 C 97 H 17 157/90 H 99 O2 Del Method 11/29/22 10:30 Room Air 11/29/22 09:30 Room Air 11/29/22 09:00 Room Air 11/29/22 08:35 11/29/22 08:34 Room Air 11/29/22 08:34 Room Air PG Care Time/CCT Total # of Minutes Spent Total Time Spent with Patient: Total time spent is greater than 50% in coordination of care (as documented) at patient's floor/unit and/or counseling patient: Coding Level of Care Code 66125 INT INP/OBS CARE 3/75MIN Diagnoses Acute on chronic pancreatitis K85.90; K86.1 Alcohol abuse F10.10 COPD (chronic obstructive pulmonary disease) J44.9 Cricopharyngeal dysphagia R13.13 Mesial temporal sclerosis G93.81 Seizure disorder G40.909 Tobacco dependence F17.200 Vertebral artery stenosis I65.09 GERD without esophagitis K21.9 Hypothyroidism E03.9
[2022-11-29] MEDS ORDERED: NICOTINE 14 MG/24 HR PATCH TD ONE (12:00)
[2022-11-29] MEDS ORDERED: LORazepam 2 MG/1 ML VIAL IV PRN ×4 (13:10→13:44)
[2022-11-29] MEDS: HYDROmorphone INJ 1 MG/ML SYRINGE IV PRN ×2 (13:12→19:43)
[2022-11-29] MEDS ORDERED: CEROVITE ADV FORMULA TAB PO STA (13:44)
[2022-11-29] MEDS ORDERED: Ativan IV Alcohol Withdrawal--Active Protocol IV PRN (13:44)
[2022-11-29] MEDS ORDERED: chlordiazePOXIDE ALCOHOL WITHDRAWL 25MG PO STA (13:44)
[2022-11-29] MEDS ORDERED: IPRATROPIUM BROMIDE/ALBUTEROL respimat INH INH PRN (13:44)
[2022-11-29] MEDS ORDERED: IPRATROPIUM BROMIDE HFA INHALER INH PRN (13:50)
[2022-11-29] MEDS ORDERED: ALBUTEROL HFA 8 GM INHALER INH PRN (13:50)
[2022-11-29] MEDS ORDERED: THIAMINE HCL 100 MG, FOLIC ACID 1 MG in SODIUM CHLORIDE 0.9% 1000ML 1,000 ML IV SCH (14:15)
--- NOTE | 2022-11-29 15:10 | Gastrointestinal Consultation ---
Date of Consultation November 29, 2022 Assessment & Plan (1) Acute on chronic pancreatitis: Pt is a 62 yo male admitted w acute on chronic pancreatitis. Hx of recent ERCP w pancreatic duct stone removal, pancreas duct stent placements which appear to have fallen off based on admission CT. - Low fat diet as tolerated - IVF resuscitation with LR - No indication for GI/biliary intervention - Symptomatic management - ETOH cessation advised - GI to sign off; pls recall prn Supervising Physician Co-Signing Physician Notes Pt is alcoholic with acute on chronic panc. Labs, imaging reviewed, recs as above. History of Present Illness Reason for Consultation: Pancreatitis Requesting Physician: Dr. Ravinder Hahn Attending Physician: Dr. Joie Luo History of Present Illness Pt is a 62 yo male w PMHx of alcohol abuse w ongoing use, withdrawal seizures, GERD, COPD, who presented to ED w c/o abd pain, n/v wo hematemesis or coffee ground emesis. He denies fever, chills, CP, SOB. He drinks "a fifth" of liquor a week, last ETOH ingestion was 2 days ago. He smokes tobacco and marijuana products as well. States bowels move regularly wo loose stools or rectal bleeding. Pt is s/p ERCP 1 month ago w gallbladder stone removal and biliary sphincterectomy, stent placements, then subsequently removed with pancreatic duct stent placements at last ERCP. He was noted at that time to also have pancreatic stones. Labs showed WBC 14K, H/H normal, LFTs, renal function normal, lipase 426. CT abd/pelvis w contrast showed acute on chronic pancreatitis. Pancreas stent no longer in place, there are stones fragment in pancreatic duct. Allergies Allergy/AdvReac Type Severity Reaction Status Date / Time No Known Allergies Allergy Verified 11/03/22 09:17 Home Medications Medication Instructions Recorded Confirmed Type ipratropium 20 mcg-albuterol 100 1 puff inhalation QID PRN 07/15/22 11/29/22 History mcg/actuation mist for inhalation Shortness Of Breath (Combivent Respimat) cyanocobalamin (vitamin B-12) 1,000 mcg PO DAILY #30 tabs 08/29/22 11/29/22 Rx 1,000 mcg tablet (Vitamin B-12) pantoprazole 40 mg tablet,delayed 40 mg PO DAILY #30 tabs 08/29/22 11/29/22 Rx release sertraline 100 mg tablet 100 mg PO DAILY #90 tabs 08/29/22 11/29/22 Rx thiamine HCl (vitamin B1) 100 mg 100 mg PO QAM #30 tabs 08/29/22 11/29/22 Rx tablet lamotrigine 100 mg tablet 100 mg PO BID #60 tabs 10/18/22 11/29/22 Rx (Lamictal) magnesium oxide 400 mg PO DAILY #90 caps 10/18/22 11/29/22 Rx folic acid 1 mg tablet 2 mg PO QAM #60 tabs 11/27/22 11/29/22 Rx levothyroxine 25 mcg tablet 25 mcg PO DAILYBB #30 tabs 11/28/22 11/29/22 Rx (Synthroid) Patient History Medical History Alcohol abuse Cervical spondylosis COPD (chronic obstructive pulmonary disease) controlled w/ inhaler use Cricopharyngeal dysphagia Per 08/2022 records- stable; video swallow with cricopharyngeal bar; s/p EGD 07/27/22 with esophageal stenosis which was like cause of the bar seen- s/p dilation- dysphagia improved/resolved Degenerative disc disease Depression Esophageal dysphagia Improved per 08/2022 PCP records GERD without esophagitis History of pancreatitis (~02/2020) S/p ERCP on 07/16/22 with large gallbladder stone removed. Biliary sphincterectomy and stent placed to be removed in 3 months. Hx of aspiration pneumonitis 07/2022- treated with abx Hx of pleural effusion Hx of seizure disorder Last seizure 08/2021- has not had one since started lamictal (did confirmed 10/27/22 with patient's caregiver that he is taking Lamictal daily) Hypertension Hypothyroidism Macrocytic anemia Marijuana use Mesial temporal sclerosis Stable per 10/18/22 neuro note Other symptoms and signs involving cognitive functions and awareness Poor historian Thrombocytopenia Tobacco dependence Vertebral artery stenosis Per 07/2020 Neck CTA- severe stenosis of the left vertebral artery of the C4 level due to osteophytes Surgical History History of colonoscopy History of esophagogastroduodenoscopy (EGD) 10/19/20 [facility] Hx of neck surgery (05/2018) cervical fusion (C2-C3?) Full ROM S/P epidural steroid injection Status post tooth extraction Family History Aunt Parkinson disease Cerebral aneurysm Mother Cerebral aneurysm Depression Anemia Uncle Cerebral aneurysm Other No family history of adverse response to anesthesia Denies family history of Ovarian cancer Prostate cancer Myocardial infarction Breast cancer Lung cancer Colorectal cancer Social History Smoking Status: Current every day smoker Tobacco Type: Cigarettes Age Started Using Tobacco: 17; packs per day: 1; Cigarettes Per Day: 20 per day- advised; Second Hand Exposure: No; Do You Dip or Chew Tobacco: No; Hx Alcohol Use: Yes Alcohol type: hard liquor Alcohol Intake Frequency Comment: fifth of vodka per week Hx Substance Use: Yes (advised) Prescribed Medications: Marijuana Last Used Substance: Days (ago) Substance Use Type Other:: Daily Preferred Language: Kinyarwanda Communication Ability: Effective Visual Impairment: No Limitations Hearing Ability: Normal Habitat Biologist Required: No Beliefs That Will Affect Care: None marital status: Single Current Living Situation: Spouse, Family and Significant Other Current Living Situation Comment: [place] current occupational status: disabled Feels Safe at Home: Yes Safety Concerns: Feels Safe At This Time Childhood Exposure to Second-Hand Smoke: Yes Diet Comment: regular caffeine: No during the past year weight has: remained stable Dental Care, Regularly: No Physical Activity Frequency: Does not Exercise Seatbelt Use: always Sunscreen Use: No Assistive Devices: Cane and Walker Review of Systems Review of Systems: All systems reviewed & are unremarkable except as noted in HPI & below Physical Exam Constitutional: WD/WN, vitals as above well groomed, cooperative and comfortable Eyes: PERRL, conjunctivae normal, anicteric sclerae ENMT: external ear and nose normal, oropharynx normal Respiratory: normal respiratory effort, lungs clear to auscultation Cardiovascular: RRR, no murmur, no edema Gastrointestinal (Abdomen): Abd soft, diffusely tender, BS hypoactive Skin: no rashes, warm and dry no jaundice Neurologic: Motor/Sensory: no asterixis Psychiatric: A+Ox3, euthymic affect Lymphatic: no lymphedema Results & Data Vital Signs (Past 12 Hours) Vital Signs Temp Pulse Pulse Resp BP BP Pulse Ox 11/29/22 14:55 37.0 C 86 18 158/89 H 97 11/29/22 13:44 36.7 C 105 H 18 164/92 H 95 11/29/22 13:00 75 17 177/97 H 94 11/29/22 12:30 60 14 171/88 H 99 11/29/22 12:00 68 16 167/83 H 97 11/29/22 12:03 73 11/29/22 11:00 70 14 169/95 H 99 11/29/22 10:30 72 14 171/94 H 98 11/29/22 09:30 79 15 167/86 H 99 11/29/22 09:00 66 16 155/85 H 99 11/29/22 08:35 81 11/29/22 08:34 37.1 C 97 H 17 157/90 H 99 11/29/22 08:34 37.1 C 97 H 17 157/90 H 99 O2 Del Method 11/29/22 14:55 Room Air 11/29/22 13:44 Room Air 11/29/22 13:00 Room Air 11/29/22 12:30 Room Air 11/29/22 12:00 Room Air 11/29/22 12:03 11/29/22 11:00 Room Air 11/29/22 10:30 Room Air 11/29/22 09:30 Room Air 11/29/22 09:00 Room Air 11/29/22 08:35 11/29/22 08:34 Room Air 11/29/22 08:34 Room Air
[2022-11-29] MEDS: MAGNESIUM SULFATE / D5W 1 GM/100 ML BAG IV SCH ×2 (15:43→17:39)
[2022-11-29] MEDS: chlordiazePOXIDE HCl 25 MG CAP PO SCH ×2 (15:43→19:43)
--- NOTE | 2022-11-29 16:49 | Electrocardiogram Report ---
Test Reason : Blood Pressure : / mmHG Vent. Rate : 067 BPM Atrial Rate : 067 BPM P-R Int : 122 ms QRS Dur : 084 ms QT Int : 440 ms P-R-T Axes : 082 076 076 degrees QTc Int : 464 ms Normal sinus rhythm with sinus arrhythmia Possible Left atrial enlargement Nonspecific ST abnormality Abnormal ECG When compared with ECG of 21-JUL-2022 12:43, T wave amplitude has increased in Inferior leads Confirmed by Eduardo Louis ([id number]) on 11/29/2022 4:49:35 PM Referred By: REFERRED SELF Confirmed By:Eduardo Louis
[2022-11-29] MEDS: NSS + 20MEQ KCL 20 MEQ/1,000 ML BAG IV SCH (17:39)
[2022-11-29 18:53] LABS: Appearance Urine Clear (Clear); Bacteria Urine Automated Negative (Negative); Bilirubin Urine Negative (Negative); Blood Urine Negative (Negative); Color Urine Dark Yellow; Glucose Urine UA Negative (Negative); Ketones Urine 2+ (Negative); Leukocyte Esterase Urine Negative (Negative); Nitrite Urine Negative (Negative); RBC Urine Automated 0-4 /hpf (0-4); Specific Gravity Urine > 1.045 (1.000-1.030); Urobilinogen Urine Negative (Negative)
[2022-11-29 18:59] LABS: Protein Urine Trace (Negative)
[2022-11-29] MEDS: lamoTRIgine 100 MG TAB PO SCH (20:08)
[2022-11-30] MEDS: NSS + 20MEQ KCL 20 MEQ/1,000 ML BAG IV SCH ×3 (01:30→18:24)
[2022-11-30] MEDS: chlordiazePOXIDE HCl 25 MG CAP PO SCH ×4 (01:30→21:01)
[2022-11-30] MEDS: LEVOTHYROXINE SODIUM 25 MCG TABLET PO SCH (06:02)
[2022-11-30 08:16] LABS: Basophils # (auto) 0.03 K/uL (0-0.2); Basophils % (auto) 0.3 %; Eosinophils # (auto) 0.13 K/uL (0-0.50); Eosinophils % (auto) 1.1 %; Hematocrit (blood only) 43.9 % (42.0-52.0); Hemoglobin 15.2 g/dl (14.0-18.0); Immature Granulocytes # (auto) 0.04 K/uL (0.01-0.20); Immature Granulocytes % (auto) 0.3 %; Lymphocytes # (auto) 1.63 K/uL (1.2-3.4); Lymphocytes % (auto) 13.7 %; Mean Corpuscular Hemoglobin 34.7 pg (25.0-34.0); Mean Corpuscular Hgb Conc 34.6 g/dL (32.0-36.0); Mean Corpuscular Volume 100.2 fL (80.0-100.0); Mean Platelet Volume 9.7 fL (9.4-12.4); Monocytes # (auto) 1.19 K/uL (0.11-0.59); Neutrophils % (auto) 74.6 %; Platelet Count 306 K/uL (130-400); RDW Coefficient of Variation 15.1 % (11.5-14.5); RDW Standard Deviation 56.4 fL (36.4-46.3); Red Blood Count 4.38 M/uL (4.70-6.10); White Blood Count 11.92 K/ul (4.8-10.8)
[2022-11-30 08:19] LABS: Bilirubin,Total 1.1 mg/dl (0.2-1.0); Calcium 8.3 mg/dl (8.6-10.3); Creatinine Clr Calc Pharmacy 141.5 ml/min; Est GFR (African American) 139.3 ml/min; Est GFR (Non-African American) 120.2 ml/min; Globulin 2.9 gm/dl (2.5-4.0); Potassium 4.1 mmol/L (3.5-5.1); Total Protein 5.9 gm/dl (6.0-8.3)
[2022-11-30] MEDS ORDERED: FOLIC ACID 1 MG in SYRINGE 9.8 ML IV SCH (09:00)
[2022-11-30] MEDS ORDERED: THIAMINE HCL 100 MG in SYRINGE 9 ML IV SCH (09:00)
[2022-11-30] MEDS: MAGNESIUM OXIDE 400 MG TAB PO SCH (09:37)
[2022-11-30] MEDS: lamoTRIgine 100 MG TAB PO SCH ×2 (09:37→21:01)
[2022-11-30] MEDS: SERTRALINE HCL 100 MG TABLET PO SCH (09:38)
[2022-11-30] MEDS: NICOTINE 14 MG/24 HR PATCH TD SCH (10:28)
--- NOTE | 2022-11-30 16:55 | Hospitalist Progress Note ---
Date of Service November 30, 2022 Assessment & Plan (1) Acute on chronic pancreatitis: Plan: Acute on chronic pancreatitis 11/03/2022 had 2 stents removed from pancreatic duct and CBD, with 1 plastic pancreatic stent placed into the ventral duct With continued alcohol use, last drink 2 days prior to admission. Drinking approximately 1 pint of vodka/liquor per day. Additionally with some stone fragments seen on CT CTA/P: Acute on chronic pancreatitis. No peripancreatic fluid collection identified. Pancreatic duct mildly dilated with stone/fragments within the DOC and tiny foci of intraductal gas? Due to recent instrumentation - Lipase 426 Alcohol negative on admission GI consulted for pancreatitis with recent ERCP/instrumentation and pancreatic duct stone fragments-no indication for GI/biliary intervention-recommend symptomatic management, IV fluid resuscitation, and low-fat diet as tolerated. -Continue IV fluids, advance diet to low-fat and he is tolerating -Follow CBC, CMP, lipase in the morning -Encouraged alcohol cessation -IV Dilaudid as needed (2) Alcohol abuse: Plan: Patient with history of alcohol abuse, half pint of liquor per day. While he denies a history of etoh withdrawal/seizures he notes the last time he was without alcohol for 2 weeks was when he was in the hospital, endorses a history of non-alcoholic seizures, and has been drinking consistently since discharge in August -No evidence of alcohol withdrawal at this point but is on Librium taper Continue AWSS Continue thiamine, folate but changed to p.o. Seizure precautions Aspiration precautions (3) COPD (chronic obstructive pulmonary disease): Plan: Continue inhalers, lungs clear on admission (4) Cricopharyngeal dysphagia: Plan: Improved following esophageal dilation with prior endoscopy Aspiration precautions, patient denies difficulty eating/drinking in the last month (5) Mesial temporal sclerosis: Plan: w/ hx of seizure Last saw neurology 10/2022 - 07/2022 MRI of brain reportMild involutional changes. Minimal T2/FLAIR prolongation within the periventricular white matter may represent a degree of chronic microvascular ischemic disease. There is asymmetric atrophy of the left hippocampus/mesial temporal lobe. Cerebral venous sinuses and major arterial flow voids appear patent. The skull, orbits and soft tissues are unremarkable. Asymmetric atrophy of the left hippocampus. Correlate clinically to exclude mesial temporal sclerosis. -Continue Lamictal 100 mg twice daily (6) Tobacco dependence: Plan: Nicotine patch. Encourage tobacco cessation (7) Vertebral artery stenosis: Plan: No acute neurologic change, no acute change in management (8) GERD without esophagitis: Plan: GERD without esophagitis PPI twice daily (9) Hypothyroidism: Plan: Recent TSH normal at 2.7 Continue Synthroid 25 mcg (10) Depression: Plan: Continue sertraline Plan DVT prophylaxis add on Lovenox Disposition-continued stay, downgrade to medical/surgical unit, possible discharged home tomorrow Admission and Anticipated Discharge Date Admission Date: November 29, 2022 Subjective Patient feeling better today than yesterday, only mild abdominal pain. He is tolerating some low-fat diet. No chest pain or shortness of breath, no other concerns. Telemetry with normal sinus rhythm with rates in the 70s to 80s Physical Exam Constitutional: WD/WN, vitals as above Neck: trachea midline, no thyromegaly Respiratory: normal respiratory effort, lungs clear to auscultation Cardiovascular: RRR, no murmur, no edema Chest (Breasts): Chest: normal inspection of chest Gastrointestinal (Abdomen): Inspection/Auscultation: normal bowel sounds; abdomen not distended Percussion/Palpation: + abdomen tender (Mild in epigastric region without guarding or rebound) and abdomen soft Musculoskeletal: Extremities: extremities normal to inspection; no cyanosis and no clubbing Skin: no rashes, warm and dry Neurologic: moves all extremities and awake; no focal motor deficits Psychiatric: A+Ox3, euthymic affect Results & Data Results & Data Vital Signs (Past 12 Hours) Vital Signs Temp Pulse Pulse Resp BP Pulse Ox O2 Del Method 11/30/22 16:41 36.8 C 94 H 18 130/79 98 Room Air 11/30/22 15:39 93 H 11/30/22 08:00 Room Air 11/30/22 10:49 37.0 C 92 H 16 146/88 H 96 Room Air 11/30/22 07:59 37.3 C 101 H 18 148/92 H 97 Room Air 11/30/22 07:55 98 H Laboratory Results CBC, CMP reviewed PG Care Time/CCT Total # of Minutes Spent Total Time Spent with Patient: Total time spent is greater than 50% in coordination of care (as documented) at patient's floor/unit and/or counseling patient: Coding Level of Care Code 02373 SUB INP/OBS CARE 3/50MIN Diagnoses Acute on chronic pancreatitis K85.90; K86.1 Alcohol abuse F10.10 COPD (chronic obstructive pulmonary disease) J44.9 Cricopharyngeal dysphagia R13.13 Mesial temporal sclerosis G93.81 Tobacco dependence F17.200 Vertebral artery stenosis I65.09 GERD without esophagitis K21.9 Hypothyroidism E03.9 Depression F32.9 Depression Type: unspecified (10) Depression Depression Type: unspecified Qualified Code(s): F32.9 - Major depressive disorder, single episode, unspecified
[2022-11-30] MEDS: HYDROmorphone INJ 1 MG/ML SYRINGE IV PRN (19:29)
[2022-11-30] MEDS: ENOXAPARIN INJ 40 MG/0.4 ML SYR SQ SCH (21:02)
[2022-11-30] MEDS: HYDROmorphone INJ 0.5 MG/0.5 ML SYR IV PRN (21:26)
[2022-12-01] MEDS: HYDROmorphone INJ 1 MG/ML SYRINGE IV PRN ×2 (02:08→06:10)
[2022-12-01] MEDS: NSS + 20MEQ KCL 20 MEQ/1,000 ML BAG IV SCH ×3 (04:06→21:08)
[2022-12-01] MEDS: HYDROmorphone INJ 0.5 MG/0.5 ML SYR IV PRN ×2 (05:19→19:40)
[2022-12-01] MEDS: LEVOTHYROXINE SODIUM 25 MCG TABLET PO SCH (05:40)
[2022-12-01] MEDS: chlordiazePOXIDE HCl 25 MG CAP PO SCH (05:45)
[2022-12-01] MEDS: NICOTINE 14 MG/24 HR PATCH TD SCH (08:05)
[2022-12-01] MEDS: CYANOCOBALAMIN (B-12) 500 MCG TABLET PO SCH (08:07)
[2022-12-01] MEDS: PANTOprazole 40 MG TAB PO SCH (08:07)
[2022-12-01] MEDS: THIAMINE HCL 100 MG TAB PO SCH (08:07)
[2022-12-01] MEDS: SERTRALINE HCL 100 MG TABLET PO SCH (08:07)
[2022-12-01] MEDS: MAGNESIUM OXIDE 400 MG TAB PO SCH (08:07)
[2022-12-01] MEDS: FOLIC ACID 1 MG TAB PO SCH (08:07)
[2022-12-01] MEDS: lamoTRIgine 100 MG TAB PO SCH ×2 (08:07→21:01)
[2022-12-01 08:14] LABS: Basophils # (auto) 0.04 K/uL (0-0.2); Basophils % (auto) 0.4 %; Eosinophils # (auto) 0.45 K/uL (0-0.50); Eosinophils % (auto) 4.6 %; Hematocrit (blood only) 39.2 % (42.0-52.0); Hemoglobin 13.3 g/dl (14.0-18.0); Immature Granulocytes # (auto) 0.04 K/uL (0.01-0.20); Immature Granulocytes % (auto) 0.4 %; Lymphocytes # (auto) 2.55 K/uL (1.2-3.4); Lymphocytes % (auto) 25.9 %; Mean Corpuscular Hgb Conc 33.9 g/dL (32.0-36.0); Mean Corpuscular Volume 100.3 fL (80.0-100.0); Mean Platelet Volume 9.8 fL (9.4-12.4); Monocytes # (auto) 1.32 K/uL (0.11-0.59); Monocytes % (auto) 13.4 %; Neutrophils # (auto) 5.45 K/uL (1.40-6.50); Neutrophils % (auto) 55.3 %; Platelet Count 265 K/uL (130-400); RDW Coefficient of Variation 14.8 % (11.5-14.5); RDW Standard Deviation 54.6 fL (36.4-46.3); Red Blood Count 3.91 M/uL (4.70-6.10); White Blood Count 9.85 K/ul (4.8-10.8)
[2022-12-01 08:25] LABS: BUN Creatinine Ratio 9.3 (10-20); Bilirubin Direct 0.2 mg/dl (0-0.2); Bilirubin,Total 0.7 mg/dl (0.2-1.0); Calcium 8.3 mg/dl (8.6-10.3); Est GFR (African American) 143.2 ml/min; Est GFR (Non-African American) 123.6 ml/min; Magnesium 1.8 mg/dl (1.7-2.4); Potassium 3.9 mmol/L (3.5-5.1); Total Protein 5.8 gm/dl (6.0-8.3)
[2022-12-01] MEDS ORDERED: oxyCODONE HCL IR 5 MG TAB (IMMEDIATE RELEASE) PO PRN (10:42)
--- NOTE | 2022-12-01 14:38 | Hospitalist Progress Note ---
Date of Service December 01, 2022 Assessment & Plan (1) Acute on chronic pancreatitis: Plan: Acute on chronic pancreatitis 11/03/2022 had 2 stents removed from pancreatic duct and CBD, with 1 plastic pancreatic stent placed into the ventral duct With continued alcohol use, last drink 2 days prior to admission. Drinking approximately 1 pint of vodka/liquor per day. Additionally with some stone fragments seen on CT CTA/P: Acute on chronic pancreatitis. No peripancreatic fluid collection identified. Pancreatic duct mildly dilated with stone/fragments within the DOC and tiny foci of intraductal gas? Due to recent instrumentation - Lipase 426 on admission and now down to 88 Alcohol negative on admission GI consulted for pancreatitis with recent ERCP/instrumentation and pancreatic duct stone fragments-no indication for GI/biliary intervention-recommend symptomatic management, IV fluid resuscitation, and low-fat diet as tolerated. Improving but still requiring IV pain meds, not ready to go home, eating minimal amounts low fat -Continue IV fluids but decrease to 70 mL/hr -continue low-fat diet -Follow CBC, CMP in the morning -Encouraged alcohol cessation -IV Dilaudid as needed but dc 1 mg dose as is too potent-causing excessive drowsiness (2) Alcohol abuse: Plan: Patient with history of alcohol abuse, half pint of liquor per day. While he denies a history of etoh withdrawal/seizures he notes the last time he was without alcohol for 2 weeks was when he was in the hospital, endorses a history of non-alcoholic seizures, and has been drinking consistently since discharge in August -No evidence of alcohol withdrawal at this point but is on Librium taper Continue AWSS Continue thiamine, folate p.o. Seizure precautions Aspiration precautions -asked CM to bring info on EtOH rehab resources (3) COPD (chronic obstructive pulmonary disease): Plan: Continue inhalers, lungs clear on admission (4) Cricopharyngeal dysphagia: Plan: Improved following esophageal dilation with prior endoscopy Aspiration precautions, patient denies difficulty eating/drinking in the last month (5) Mesial temporal sclerosis: Plan: w/ hx of seizure Last saw neurology 10/2022 - 07/2022 MRI of brain reportMild involutional changes. Minimal T2/FLAIR prolongation within the periventricular white matter may represent a degree of chronic microvascular ischemic disease. There is asymmetric atrophy of the left hippocampus/mesial temporal lobe. Cerebral venous sinuses and major arterial flow voids appear patent. The skull, orbits and soft tissues are unremarkable. A symmetric atrophy of the left hippocampus. Correlate clinically to exclude mesial temporal sclerosis. -Continue Lamictal 100 mg twice daily (6) Tobacco dependence: Plan: Nicotine patch. Encourage tobacco cessation (7) Vertebral artery stenosis: Plan: No acute neurologic change, no acute change in management (8) GERD without esophagitis: Plan: GERD without esophagitis PPI twice daily (9) Hypothyroidism: Plan: Recent TSH normal at 2.7 Continue Synthroid 25 mcg (10) Depression: Plan: Continue sertraline Plan DVT prophylaxis -Lovenox Disposition-continued stay, medical/surgical unit, possible discharge to home tomorrow Admission and Anticipated Discharge Date Admission Date: November 29, 2022 Subjective Pt still ahving epigastric pain, sleeping all day after getting dilaudid, feels ok, eating a little bit. Doesn't feel ready to go home yet Physical Exam Constitutional: WD/WN, vitals as above Neck: trachea midline, no thyromegaly Respiratory: normal respiratory effort, lungs clear to auscultation Cardiovascular: RRR, no murmur, no edema Chest (Breasts): Chest: normal inspection of chest Gastrointestinal (Abdomen): Inspection/Auscultation: normal bowel sounds; abdomen not distended Percussion/Palpation: + abdomen tender (Mild in epigastric region without guarding or rebound) and abdomen soft Musculoskeletal: Extremities: extremities normal to inspection; no cyanosis and no clubbing Skin: no rashes, warm and dry Neurologic: moves all extremities and awake; no focal motor deficits Psychiatric: A+Ox3, euthymic affect Results & Data Results & Data Vital Signs (Past 12 Hours) Vital Signs Temp Pulse Pulse Resp BP Pulse Ox O2 Del Method 12/01/22 07:43 36.4 C L 71 18 132/75 95 Room Air 12/01/22 04:02 37 C 83 18 135/72 97 Room Air Laboratory Results CBC, CMP, lipase reviewed PG Care Time/CCT Total # of Minutes Spent Total Time Spent with Patient: Total time spent is greater than 50% in coordination of care (as documented) at patient's floor/unit and/or counseling patient: Coding Level of Care Code 87158 SUB INP/OBS CARE 2/35MIN Diagnoses Acute on chronic pancreatitis K85.90; K86.1 Alcohol abuse F10.10 COPD (chronic obstructive pulmonary disease) J44.9 Cricopharyngeal dysphagia R13.13 Mesial temporal sclerosis G93.81 Tobacco dependence F17.200 Vertebral artery stenosis I65.09 GERD without esophagitis K21.9 Hypothyroidism E03.9 Depression F32.9 Depression Type: unspecified (10) Depression Depression Type: unspecified Qualified Code(s): F32.9 - Major depressive disorder, single episode, unspecified
[2022-12-01] MEDS: ENOXAPARIN INJ 40 MG/0.4 ML SYR SQ SCH (21:01)
[2022-12-02] MEDS: LEVOTHYROXINE SODIUM 25 MCG TABLET PO SCH (05:01)
[2022-12-02] MEDS: HYDROmorphone INJ 0.5 MG/0.5 ML SYR IV PRN (05:06)
[2022-12-02 07:25] LABS: Basophils # (auto) 0.04 K/uL (0-0.2); Basophils % (auto) 0.6 %; Eosinophils # (auto) 0.44 K/uL (0-0.50); Eosinophils % (auto) 6.3 %; Hematocrit (blood only) 37.9 % (42.0-52.0); Hemoglobin 13.1 g/dl (14.0-18.0); Immature Granulocytes # (auto) 0.02 K/uL (0.01-0.20); Immature Granulocytes % (auto) 0.3 %; Lymphocytes # (auto) 2.32 K/uL (1.2-3.4); Lymphocytes % (auto) 33.5 %; Mean Corpuscular Hemoglobin 34.1 pg (25.0-34.0); Mean Corpuscular Hgb Conc 34.6 g/dL (32.0-36.0); Mean Corpuscular Volume 98.7 fL (80.0-100.0); Mean Platelet Volume 10.2 fL (9.4-12.4); Monocytes # (auto) 0.87 K/uL (0.11-0.59); Monocytes % (auto) 12.6 %; Neutrophils # (auto) 3.24 K/uL (1.40-6.50); Neutrophils % (auto) 46.7 %; Platelet Count 268 K/uL (130-400); RDW Coefficient of Variation 14.6 % (11.5-14.5); RDW Standard Deviation 53.1 fL (36.4-46.3); Red Blood Count 3.84 M/uL (4.70-6.10); White Blood Count 6.93 K/ul (4.8-10.8)
[2022-12-02 07:33] LABS: Albumin Level 2.8 gm/dl (3.4-5.0); BUN Creatinine Ratio 4.2 (10-20); Bilirubin,Total 0.4 mg/dl (0.2-1.0); Calcium 8.4 mg/dl (8.6-10.3); Est GFR (African American) 136.9 ml/min; Est GFR (Non-African American) 118.1 ml/min; Globulin 2.7 gm/dl (2.5-4.0); Magnesium 1.7 mg/dl (1.7-2.4); Potassium 3.9 mmol/L (3.5-5.1); Total Protein 5.5 gm/dl (6.0-8.3)
[2022-12-02] MEDS: PANTOprazole 40 MG TAB PO SCH (08:20)
[2022-12-02] MEDS: lamoTRIgine 100 MG TAB PO SCH ×2 (08:20→20:58)
[2022-12-02] MEDS: SERTRALINE HCL 100 MG TABLET PO SCH (08:21)
[2022-12-02] MEDS: CYANOCOBALAMIN (B-12) 500 MCG TABLET PO SCH (08:21)
[2022-12-02] MEDS: MAGNESIUM OXIDE 400 MG TAB PO SCH (08:21)
[2022-12-02] MEDS: THIAMINE HCL 100 MG TAB PO SCH (08:21)
[2022-12-02] MEDS: FOLIC ACID 1 MG TAB PO SCH (08:22)
[2022-12-02] MEDS: NICOTINE 14 MG/24 HR PATCH TD SCH (08:23)
[2022-12-02] MEDS ORDERED: bisacodyL 10 MG SUPP PR PRN (09:55)
[2022-12-02] MEDS: DOCUSATE SODIUM/SENNA 50/8.6MG TAB PO SCH (10:19)
[2022-12-02] MEDS: POLYETHYLENE (MIRALAX) 17 GM PACK PO SCH (10:19)
[2022-12-02] MEDS: NSS + 20MEQ KCL 20 MEQ/1,000 ML BAG IV SCH (11:18)
--- NOTE | 2022-12-02 14:29 | Hospitalist Progress Note ---
Date of Service December 02, 2022 Assessment & Plan (1) Acute on chronic pancreatitis: Plan: Acute on chronic pancreatitis 11/03/2022 had 2 stents removed from pancreatic duct and CBD, with 1 plastic pancreatic stent placed into the ventral duct With continued alcohol use, last drink 2 days prior to admission. Drinking approximately 1 pint of vodka/liquor per day. Additionally with some stone fragments seen on CT CTA/P: Acute on chronic pancreatitis. No peripancreatic fluid collection identified. Pancreatic duct mildly dilated with stone/fragments within the DOC and tiny foci of intraductal gas? Due to recent instrumentation - Lipase 426 on admission and now down to 88 Alcohol negative on admission GI consulted for pancreatitis with recent ERCP/instrumentation and pancreatic duct stone fragments-no indication for GI/biliary intervention-recommend symptomatic management, IV fluid resuscitation, and low-fat diet as tolerated. Improving but still requiring IV pain meds, not ready to go home, eating minimal amounts low fat Did move bowels today small amount LFTs normal -Continue IV fluids at 70 mL/hr -continue low-fat diet -Follow CBC, CMP in the morning -continue to encourage alcohol cessation -advised patient and RN to try oxycodone first and IV dilaudid second -hopeful to discharge home tomorrow -added on senna, miralax and prn bisacodyl VT for constipation related to pancreatitis and opioid use (2) Alcohol abuse: Plan: Patient with history of alcohol abuse, half pint of liquor per day. While he denies a history of etoh withdrawal/seizures he notes the last time he was without alcohol for 2 weeks was when he was in the hospital, endorses a history of non-alcoholic seizures, and has been drinking consistently since discharge in August -No evidence of alcohol withdrawal at this point but is on Librium taper Continue AWSS Continue thiamine, folate p.o. Seizure precautions Aspiration precautions -asked CM to bring info on EtOH rehab resources (3) COPD (chronic obstructive pulmonary disease): Plan: Continue inhalers, lungs clear on admission (4) Cricopharyngeal dysphagia: Plan: Improved following esophageal dilation with prior endoscopy Aspiration precautions, patient denies difficulty eating/drinking in the last month (5) Mesial temporal sclerosis: Plan: w/ hx of seizure Last saw neurology 10/2022 - 07/2022 MRI of brain reportMild involutional changes. Minimal T2/FLAIR prolongation within the periventricular white matter may represent a degree of chronic microvascular ischemic disease. There is asymmetric atrophy of the left hippocampus/mesial temporal lobe. Cerebral venous sinuses and major arterial flow voids appear patent. The skull, orbits and soft tissues are unremarkable. Asymmetric atrophy of the left hippocampus. Correlate clinically to exclude mesial temporal sclerosis. -Continue Lamictal 100 mg twice daily (6) Tobacco dependence: Plan: Nicotine patch. Encourage tobacco cessation (7) Vertebral artery stenosis: Plan: No acute neurologic change, no acute change in management (8) GERD without esophagitis: Plan: GERD without esophagitis PPI twice daily (9) Hypothyroidism: Plan: Recent TSH normal at 2.7 Continue Synthroid 25 mcg (10) Depression: Plan: Continue sertraline Plan DVT prophylaxis -Lovenox Disposition-continued stay, medical/surgical unit, likely discharge to home tomorrow Admission and Anticipated Discharge Date Admission Date: November 29, 2022 Subjective Pt still having 7/10 pain in epigastric region, no nausea, eating some but not much. Had a small BM this AM. Doesn't feel ready to go home yet today Physical Exam Constitutional: WD/WN, vitals as above Neck: trachea midline, no thyromegaly Respiratory: normal respiratory effort, lungs clear to auscultation Cardiovascular: RRR, no murmur, no edema Chest (Breasts): Chest: normal inspection of chest Gastrointestinal (Abdomen): Inspection/Auscultation: normal bowel sounds; abdomen not distended Percussion/Palpation: + abdomen tender (Mild in epigastric region without guarding or rebound) and abdomen soft Musculoskeletal: Extremities: extremities normal to inspection; no cyanosis and no clubbing Skin: no rashes, warm and dry Neurologic: moves all extremities and awake; no focal motor deficits Psychiatric: Orientation: alert, oriented x 3 and cooperative Affect: + depressed affect Results & Data Results & Data Vital Signs (Past 12 Hours) Vital Signs Temp Pulse Resp BP Pulse Ox O2 Del Method 12/02/22 07:25 Room Air 12/02/22 06:59 36.5 C 70 17 142/83 H 97 Room Air Laboratory Results CBC, CMP, magnesium reviewed PG Care Time/CCT Total # of Minutes Spent Total Time Spent with Patient: Total time spent is greater than 50% in coordination of care (as documented) at patient's floor/unit and/or counseling patient: Coding Level of Care Code 66334 SUB INP/OBS CARE Diagnoses Acute on chronic pancreatitis K85.90; K86.1 Alcohol abuse F10.10 COPD (chronic obstructive pulmonary disease) J44.9 Cricopharyngeal dysphagia R13.13 Mesial temporal sclerosis G93.81 Tobacco dependence F17.200 Vertebral artery stenosis I65.09 GERD without esophagitis K21.9 Hypothyroidism E03.9 Depression F32.9 Depression Type: unspecified (10) Depression Depression Type: unspecified Qualified Code(s): F32.9 - Major depressive disorder, single episode, unspecified
[2022-12-02] MEDS: chlordiazePOXIDE HCl 5 MG CAP PO SCH (17:58)
[2022-12-02] MEDS: ENOXAPARIN INJ 40 MG/0.4 ML SYR SQ SCH (20:58)
[2022-12-02] MEDS: oxyCODONE HCL IR 5 MG TAB (IMMEDIATE RELEASE) PO PRN (21:17)
[2022-12-03] MEDS: NSS + 20MEQ KCL 20 MEQ/1,000 ML BAG IV SCH (01:48)
[2022-12-03] MEDS: LEVOTHYROXINE SODIUM 25 MCG TABLET PO SCH (05:01)
[2022-12-03] MEDS: chlordiazePOXIDE HCl 5 MG CAP PO SCH (05:01)
[2022-12-03] MEDS: oxyCODONE HCL IR 5 MG TAB (IMMEDIATE RELEASE) PO PRN (05:09)
[2022-12-03 07:05] LABS: BUN Creatinine Ratio 5.8 (10-20); Calcium 8.3 mg/dl (8.6-10.3); Est GFR (African American) 132.5 ml/min; Est GFR (Non-African American) 114.3 ml/min; Magnesium 1.7 mg/dl (1.7-2.4); Potassium 3.9 mmol/L (3.5-5.1)
[2022-12-03] MEDS: POLYETHYLENE (MIRALAX) 17 GM PACK PO SCH (08:04)
[2022-12-03] MEDS: CYANOCOBALAMIN (B-12) 500 MCG TABLET PO SCH (08:04)
[2022-12-03] MEDS: SERTRALINE HCL 100 MG TABLET PO SCH (08:04)
[2022-12-03] MEDS: NICOTINE 14 MG/24 HR PATCH TD SCH (08:05)
[2022-12-03] MEDS: MAGNESIUM OXIDE 400 MG TAB PO SCH (08:05)
[2022-12-03] MEDS: DOCUSATE SODIUM/SENNA 50/8.6MG TAB PO SCH (08:05)
[2022-12-03] MEDS: lamoTRIgine 100 MG TAB PO SCH (08:06)
[2022-12-03] MEDS: FOLIC ACID 1 MG TAB PO SCH (08:06)
[2022-12-03] MEDS: PANTOprazole 40 MG TAB PO SCH (08:06)
[2022-12-03] MEDS: THIAMINE HCL 100 MG TAB PO SCH (08:07)
--- NOTE | 2022-12-03 11:02 | Discharge Summary ---
Date of Service December 03, 2022 Admission HPI Per Admitting Provider Jorge is a 62-year-old male with a past medical history of alcohol use with withdrawal seizures, GERD, COPD last discharged 07/2022 after admission for quitting drinking after consuming 750 cc of liquor per week and his hospital course complicated by dysphagia with esophageal stenosis which improved s/p dilatation and acute on chronic pancreatitis with large calculus in pancreatic duct s/p ERCP with large gallbladder stone removal and biliary sphincterotomy with stent placement pending removal 3 months later, and additionally complicated by aspiration pneumonia which did not improve on Augmentin Doxy and which was treated with cefepime/Doxy. Patient was recently seen by GI 11/03/2022 and had 2 accidents removed from the pancreatic duct and CBD, pancreatic stones were found and complete removal was accomplished at that time. 1 plastic pancreatic stent was placed into the ventral pancreatic duct and Indocin was given to decrease the risk of postprocedural pancreatitis. Patient currently presents to the hospital with diffuse abdominal pain which began 1 day ago and has been persistent, similar in quality to prior pancreatitis, and associated with vomiting. Pain in the ER is 9/10. Stomach tight, crampy pain. +vomiting yesterday 11:30pm and 2x this morning. No blood, no melena, no clots. Brownish in color. BMs have been 'normal' nothing black/bloody/white/shook. Generally brown and soft, ~1-3x per day. Has not eaten much in a few days 'just don't have an appetite.' Denies pain with meals in the last week. Pain in his abdomen does not travel anywhere, staying in [facility]. Alcohol: Stopped drinking in July for 2 weeks while inpatient, started drinking again in August. Drinks 1/2 pint vodka per day. Last drink was 2 days ago. Deneis withdrawal, shakes, seizures from EtoH. Does endorses history of 'seizures not from alcohol' for which he takes a medicine to prevent. Thinks this is lamictal, does not know his medications by heart. Has not taken medications today, took last night. Saw GI last month, pt is not sure if he still has a stent or not just knows he was supposed to followup with them last week but missed his appointment and has not rescheduled. Medical History: Reviewed Medications: Reviewed Surgical History: Reviewed Family history: Reviewed Allergies: Reviewed Social History: Etoh as noted in HPI. 1ppd tobacco use x 40 years. Code Status:DNR/DNI Principal Diagnosis Acute on chronic pancreatitis EtOH Use disorder Discharge Exam Constitutional WD/WN, vitals as above Neck trachea midline, no thyromegaly Respiratory normal respiratory effort, lungs clear to auscultation Cardiovascular RRR, no murmur, no edema Chest (Breasts) Chest: normal inspection of chest Gastrointestinal (Abdomen) Inspection/Auscultation: normal bowel sounds; abdomen not distended Percussion/Palpation: + abdomen tender (Mild in epigastric region without guarding or rebound,less than previous) and abdomen soft Musculoskeletal Extremities: extremities normal to inspection; no cyanosis and no clubbing Skin no rashes, warm and dry Neurologic moves all extremities and awake; no focal motor deficits Psychiatric A+Ox3, euthymic affect Orientation: cooperative Discharge Data Allergies Allergy/AdvReac Type Severity Reaction Status Date / Time No Known Allergies Allergy Verified 11/03/22 09:17 Consultations 11/29/22 10:46 ED Decision to Admit Stat 11/29/22 14:52 Consult Gastroenterology Routine Ordered Studies 11/29/22 08:33 CT abd pelvis IV con only Stat Hospital Course (1) Acute on chronic pancreatitis: Acute on chronic pancreatitis 11/03/2022 had 2 stents removed from pancreatic duct and CBD, with 1 plastic pancreatic stent placed into the ventral duct With continued alcohol use, last drink 2 days prior to admission. Drinking approximately 1 pint of vodka/liquor per day. Additionally with some stone fragments seen on CT CTA/P: Acute on chronic pancreatitis. No peripancreatic fluid collection identified. Pancreatic duct mildly dilated with stone/fragments within the DOC and tiny foci of intraductal gas? Due to recent instrumentation - Lipase 426 on admission and now down to 88 Alcohol negative on admission GI consulted for pancreatitis with recent ERCP/instrumentation and pancreatic duct stone fragments-no indication for GI/biliary intervention-recommend symptomatic management, IV fluid resuscitation, and low-fat diet as tolerated. Pancreatic duct stent is now absent as it appropriately migrated out on its own as per GI note -treated with bowel rest x 1 day, IVFs, pain control, EtOH cessation Improving, less pain, heriberto low fat diet, taking prn oxycodone Did move bowels prior to discharge but needs to keep taking laxatives or softeners on discharge LFTs normal -continue low-fat diet -continue to encourage alcohol cessation -oxycodone and APAP prn pain on discharge -f/u with GI prn as outpt (2) Alcohol abuse: Patient with history of alcohol abuse, half pint of liquor per day. While he denies a history of etoh withdrawal/seizures he notes the last time he was with out alcohol for 2 weeks was when he was in the hospital, endorses a history of non-alcoholic seizures, and has been drinking consistently since discharge in August -No evidence of alcohol withdrawal at this point but is on Librium taper Continue thiamine, folate p.o. -asked CM to bring info on EtOH rehab resources but he declined them-tells me he probably wouldn't go and is also not interested in AA meetings -encouraged cessation on discharge (3) COPD (chronic obstructive pulmonary disease): Continue inhalers, lungs clear on admission (4) Cricopharyngeal dysphagia: Improved following esophageal dilation with prior endoscopy Aspiration precautions, patient denies difficulty eating/drinking in the last month (5) Mesial temporal sclerosis: w/ hx of seizure Last saw neurology 10/2022 - 07/2022 MRI of brain reportMild involutional changes. Minimal T2/FLAIR prolongation within the periventricular white matter may represent a degree of chronic microvascular ischemic disease. There is asymmetric atrophy of the left hippocampus/mesial temporal lobe. Cerebral venous sinuses and major arterial flow voids appear patent. The skull, orbits and soft tissues are unremarkable. Asymmetric atrophy of the left hippocampus. Correlate clinically to exclude mesial temporal sclerosis. -Continue Lamictal 100 mg twice daily (6) Tobacco dependence: Nicotine patch. Encourage tobacco cessation (7) Vertebral artery stenosis: No acute neurologic change, no acute change in management (8) GERD without esophagitis: GERD without esophagitis PPI twice daily (9) Hypothyroidism: Recent TSH normal at 2.7 Continue Synthroid 25 mcg (10) Depression: Continue sertraline Plan DVT prophylaxis -Lovenox Disposition-dc to home Total Time Total Time Spent Total Time Spent (In Minutes): 35 min Discharge Plan Discharge Items Patient Disposition: Home - Self-Care Reason For Visit: AOC PANCREATITIS, ETOH ABUSE Discharge Diagnosis: Acute, recurrent pancreatitis, Alcohol use disorder Condition on Discharge: Fair Activity: As commented below Lifting: Gradually increase as tolerated Bathing: No limitations Exercise/Sports: Gradually increase as tolerated Weightbearing: Full weightbearing Non-emergency contact: Primary Care Provider and [employer] Call non-emergency contact if: you have any medication questions, your symptoms worsen and your pain is not controlled Follow-up/Referrals: Albania Vasquez, [Primary Care Provider] - (Follow up within 1-2 weeks.) Diet: Low Fat Addtl Attending Provider Instructions: You were admitted for recurrent pancreatitis. It is very important that you continue to NOT DRINK ANY ALCOHOL after you return home, and remain on a strictly LOW FAT DIET. You can take Tylenol for mild-moderate pain and oxycodone for moderate-severe pain.Your stent in the pancreas is no longer in place which is what was expected to happen. The GI doctor did not recommend any follow up with them in their office. Please follow up with your PCP within 1-2 weeks. Pending Studies at Discharge: No Stand-Alone Forms: My [employer], Smoking Cessation Medications and DC Order Prescriptions: New nicotine 7 mg/24 hr Patch 24 Hour 14 mg transdermal DAILY Qty: 14 0RF Rx Instructions: OTC oxycodone 5 mg Tablet 5 mg PO Q4H PRN (Reason: moderate-severe pain) Qty: 14 0RF magnesium oxide 400 mg (241.3 mg magnesium) Tablet 400 mg PO HS Qty: 30 0RF Rx Instructions: OTC Continued folic acid 1 mg tablet 2 mg PO QAM Qty: 60 2RF levothyroxine [Synthroid] 25 mcg tablet 25 mcg PO DAILYBB Qty: 30 2RF lamotrigine [Lamictal] 100 mg tablet 100 mg PO BID Qty: 60 6RF magnesium oxide 400 mg magnesium capsule 400 mg PO DAILY Qty: 90 3RF pantoprazole 40 mg tablet,delayed release (DR/EC) 40 mg PO DAILY Qty: 30 3RF sertraline 100 mg tablet 100 mg PO DAILY Qty: 90 2RF thiamine HCl (vitamin B1) 100 mg tablet 100 mg PO QAM Qty: 30 4RF cyanocobalamin (vitamin B-12) [Vitamin B-12] 1,000 mcg tablet 1,000 mcg PO DAILY Qty: 30 5RF Rx Instructions: purchase [id number] Combivent Respimat 20-100 mcg/actuation mist 1 puff inhalation QID PRN (Reason: Shortness Of Breath) Rx Instructions: PER SPOUSE "USES ONLY WHEN NEEDED". space evenly during waking hours Discharge Orders: Discharge Order (Routine); Ordered 12/03/22 Ordered By: Amada Bhardwaj/Other Patient Handouts: Understanding Pancreatitis Admission Data Admit Date/Time: 11/29/22 13:10 Attending Provider: Amada Coker Admit Provider: Ravinder Hahn Primary Care Provider: [place]ia Vasquez Other Providers: Ravinder Hahn ; Joie Luo Coding Level of Care Code 25557 INP/OBS DISCH >30 MIN Diagnoses Acute on chronic pancreatitis K85.90; K86.1 Alcohol abuse F10.10 COPD (chronic obstructive pulmonary disease) J44.9 Cricopharyngeal dysphagia R13.13 Mesial temporal sclerosis G93.81 Tobacco dependence F17.200 Vertebral artery stenosis I65.09 GERD without esophagitis K21.9 Hypothyroidism E03.9 Depression F32.9 Depression Type: unspecified
== END 2022-12-03 14:03 | disposition home or self-care (01) | DRG 440 ==
LOC: ED 08:25 → SUATTDRO 13:10 → 2E 13:10 → 3N 11-30 21:08

== ENCOUNTER 2023-03-12 18:52 | Inpatient (IN) ==
--- NOTE | 2023-03-12 19:07 | Emergency Department Note ---
Impression & Plan Post-ictal confusion, Seizure ED Provider Note Name: JORGE COLLAZO Age: 62 Sex: M Arrives Via: Ambulance Informant: Patient (poor historian), EMS ED Provider: Jorge Quan MD Chief Complaint: Altered mental status Impression: As per impressions above Medical Decision Makin-year-old gentleman with a history of seizures as well as alcoholism arrives for evaluation following seizure. Patient with 2 seizures this evening requiring Ativan by EMS. On arrival patient is quite confused and altered. He is hypoxic. Lung exam is relatively benign and he is just not taking deep breaths. Placed on nasal cannula O2 and doing well. Chest x-ray unremarkable. CT of the head is unremarkable. Laboratory workup is benign. Patient has a history of alcoholism though does not appear intoxicated. He has a soft abdomen. Patient monitored over several hours in the ER and continues to be quite confused and altered. He has no evidence of meningitis though I do not feel that LP would be indicated at this point. It I consulted hospitalist and they will bring him in for further monitoring and management. Patient not tachycardic or hypertensive and he does not appear to be actively withdrawing from alcohol at this time. Prior Medical Record and Triage/Nursing Notes reviewed by Me External chart reviewed by me including previous hospitalization records surrou nding his alcoholism and pancreatitis. Differentials:Infection, hypoglycemia, electrolyte abnormalities, overdose, toxicologic, cardiac sources, intracerebral event, neurologic, trauma, as well as other pathologies. Vital Signs: reviewed and remarkable for hypoxia Labs:Reviewed and remarkable for no significant abnormalities Imaging:CT of the head as per my informal interpretation no evidence of intracranial hemorrhage, mass effect or other concerning finding. Radiologist confirmed. X ray results are stated below per my interpretation: Chest: 1 view: No infiltrate, no effusion, normal cardiac border. EKG:Per My Interpretation: Indication altered mental status. Normal sinus rhythm at 93 bpm QTc of 467. There is no ectopy nor ischemia. When compared to an EKG of November 29, 2022 there is no significant change. Cardiac/Tele Monitoring: Cardiac Monitoring: An Order was placed for continuous cardiac monitoring. The monitor shows a rate of 90 with a normal sinus rhythm. Consults:Dr Bravo SABA Hospitalist Plan: Disposition:Hospitalization. Condition: Good History of Present Illness: 63-year-old gentleman arrives for evaluation postseizure. Patient with a history of seizure disorder on Lamictal. He has been reportedly taking his medications though vomited earlier today after taking it. This evening he had 2 episodes of seizure. Second was prolonged and EMS gave him 1 mg IV Ativan. He has been postictal and confused since then. He been noted to have an O2 sat in the 80s was placed on a nonrebreather. No further vomiting. No other medications given. No falls, trauma, injuries reported. Lives at home with family. No further information available on arri inna given patient is obtunded Past History:See Below Home Medications:See Below Allergies:nkda Vitals:Blood Pressure: 117/65, Pulse 90, RR 21, T 36.4C, O2 88% on RA Physical Exam: GENERAL: Patient is obtunded appearing and in no acute distress. HEAD: AT/NC NECK: no meningismus nor mass appreciated RESPIRATORY: Decreased respiratory effort with some crackles all lung garcia though no wheezes or suspicious rhonchi. CARDIOVASCULAR: Regular rate and rhythm.No murmurs, rubs, gallops appreciated. GASTROINTESTINAL: Abdomen soft, non-tender, no peritonitis.Bowel sounds positive.No masses appreciated. EXTREMITIES: weak motion all extremities, no cyanosis, no edema. NEUROLOGIC: Patient is essentially obtunded/somnolent. Weakly opens his eyes to voice. Does weakly move arms and legs. SKIN: No rash, no jaundice, no diaphoresis. PSYCH: Unable to review GCS: 11 ED Course: Times/Reassessments: Patient did have some mild improvement though continues to be confused for several hours thus hospitalist consult Jorge Quan MD Past Med/Surg History Medical History (Updated 03/13/23 @ 00:08 by Jorge Quan MD) Alcohol abuse Anxiety Cervical spondylosis COPD (chronic obstructive pulmonary disease) controlled w/ inhaler use Cricopharyngeal dysphagia Per 08/2022 records- stable; video swallow with cricopharyngeal bar; s/p EGD 07/27/22 with esophageal stenosis which was like cause of the bar seen- s/p dilation- dysphagia improved/resolved Degenerative disc disease Depression Esophageal dysphagia Improved per 08/2022 PCP records GERD without esophagitis History of pancreatitis (~02/2020) S/p ERCP on 07/16/22 with large gallbladder stone removed. Biliary sphincterectomy and stent placed to be removed in 3 months. Hx of aspiration pneumonitis 07/2022- treated with abx Hx of pleural effusion Hx of seizure disorder Last seizure 08/2021- has not had one since started lamictal (did confirmed with patient's caregiver that he is taking Lamictal daily) Hypertension Hypothyroidism Macrocytic anemia Marijuana use Mesial temporal sclerosis Stable per 10/18/22 neuro note Other symptoms and signs involving cognitive functions and awareness Poor historian Thrombocytopenia Tobacco dependence Vertebral artery stenosis Per 07/2020 Neck CTA- severe stenosis of the left vertebral artery of the C4 level due to osteophytes Surgical History History of colonoscopy History of esophagogastroduodenoscopy (EGD) 10/19/20 [facility] Hx of neck surgery (05/2018) cervical fusion (C2-C3?) Full ROM S/P epidural steroid injection Status post tooth extraction Family History Aunt Parkinson disease Cerebral aneurysm Mother Cerebral aneurysm Depression Anemia Uncle Cerebral aneurysm Other No family history of adverse response to anesthesia Denies family history of Ovarian cancer Prostate cancer Myocardial infarction Breast cancer Lung cancer Colorectal cancer Social History Smoking Status: Smoker, status unknown Tobacco Type: Cigarettes Age Started Using Tobacco: 17; packs per day: 1; Cigarettes Per Day: 20 per day- advised; Second Hand Exposure: No; Do You Dip or Chew Tobacco: No; Hx Alcohol Use: Yes Alcohol type: hard liquor Alcohol Intake Frequency Comment: fifth of vodka per week Hx Substance Use: Yes (advised) Prescribed Medications: Marijuana Last Used Substance: Days (ago) Substance Use Type Other:: Daily Preferred Language: Sinhala Communication Ability: Effective Visual Impairment: No Limitations Hearing Ability: Normal Gardening Instructor Required: No Beliefs That Will Affect Care: None marital status: Single Current Living Situation: Spouse, Family and Significant Other Current Living Situation Comment: [place] current occupational status: disabled Feels Safe at Home: Yes Childhood Exposure to Second-Hand Smoke: Yes Diet: regular Diet Comment: regular caffeine: No during the past year weight has: remained stable Dental Care, Regularly: No Physical Activity Frequency: Does not Exercise Seatbelt Use: always Sunscreen Use: No Assistive Devices: Cane and Walker Allergies Allergies Allergy/AdvReac Type Severity Reaction Status Date / Time No Known Allergies Allergy Verified 12/27/22 08:25 Home Meds Home Medications Medication Instructions Recorded Confirmed ipratropium 20 mcg-albuterol 100 1 puff inhalation QID PRN 07/15/22 03/12/23 mcg/actuation mist for inhalation Shortness Of Breath (Combivent Respimat) Previous Rx's Medication Instructions Recorded cyanocobalamin (vitamin B-12) 1,000 mcg PO DAILY #30 tabs 08/29/22 1,000 mcg tablet (Vitamin B-12) lamotrigine 100 mg tablet 100 mg PO BID #60 tabs 10/18/22 (Lamictal) magnesium oxide 400 mg (241.3 mg 400 mg PO HS #30 tabs 12/03/22 magnesium) tablet sertraline 25 mg tablet 25 mg PO DAILY #90 tabs 12/27/22 pantoprazole 40 mg tablet,delayed 40 mg PO DAILY #30 tabs 12/28/22 release thiamine HCl (vitamin B1) 100 mg 100 mg PO QAM #30 tabs 02/08/23 tablet folic acid 1 mg tablet 2 mg PO QAM #180 tabs 02/26/23 levothyroxine 25 mcg tablet 25 mcg PO DAILYBB #90 tabs 02/26/23 (Synthroid) Results & Data (ED) Vital Signs Vital Signs - 24 hr 03/12/23 19:01 03/12/23 19:56 03/12/23 19:05 Temperature 36.4 C L Temperature Source Oral Pulse Rate 94 H 99 H Respiratory Rate 25 H 25 H Respiratory Effort / Characteristics Non-Labored Respiratory Depth Normal Respiratory Pattern Regular Blood Pressure 153/79 H Blood Pressure Mean 103 Pulse Oximetry 92 87 L 99 Oxygen Delivery Method Room Air Nasal Cannula Room Air Oxygen Flow Rate 1 Sepsis Recent Fever Within 48 Hours No Sepsis New/Unexplained Change in Mental Status N/A Sepsis Action Taken by Nursing No Action Required Pulse Oximetry Post Tiitration 95 03/12/23 19:30 03/12/23 20:00 03/12/23 20:38 Temperature Temperature Source Pulse Rate 93 H 89 87 Respiratory Rate 24 21 17 Respiratory Effort / Characteristics Respiratory Depth Respiratory Pattern Blood Pressure 133/68 Blood Pressure Mean 89 Pulse Oximetry 87 L 99 100 Oxygen Delivery Method Room Air Nasal Cannula Nasal Cannula Oxygen Flow Rate 1 1 Sepsis Recent Fever Within 48 Hours Sepsis New/Unexplained Change in Mental Status Sepsis Action Taken by Nursing Pulse Oximetry Post Tiitration 03/12/23 21:00 03/12/23 21:30 03/12/23 22:00 Temperature Temperature Source Pulse Rate 89 90 90 Respiratory Rate 16 20 19 Respiratory Effort / Characteristics Respiratory Depth Respiratory Pattern Blood Pressure 122/66 133/74 113/69 Blood Pressure Mean 84 93 83 Pulse Oximetry 99 96 98 Oxygen Delivery Method Nasal Cannula Nasal Cannula Nasal Cannula Oxygen Flow Rate 1 1 1 Sepsis Recent Fever Within 48 Hours Sepsis New/Unexplained Change in Mental Status Sepsis Action Taken by Nursing Pulse Oximetry Post Tiitration 03/12/23 22:30 03/12/23 19:02 03/12/23 23:10 Temperature Temperature Source Pulse Rate 91 H 100 H 91 H Respiratory Rate 22 Respiratory Effort / Characteristics Respiratory Depth Respiratory Pattern Blood Pressure 131/70 Blood Pressure Mean 90 Pulse Oximetry 97 Oxygen Delivery Method Nasal Cannula Oxygen Flow Rate 1 Sepsis Recent Fever Within 48 Hours Sepsis New/Unexplained Change in Mental Status Sepsis Action Taken by Nursing Pulse Oximetry Post Tiitration 03/12/23 23:00 03/12/23 23:30 Temperature Temperature Source Pulse Rate 100 H 90 Respiratory Rate 21 21 Respiratory Effort / Characteristics Respiratory Depth Respiratory Pattern Blood Pressure 117/65 Blood Pressure Mean 82 Pulse Oximetry 95 97 Oxygen Delivery Method Nasal Cannula Nasal Cannula Oxygen Flow Rate 1 1 Sepsis Recent Fever Within 48 Hours Sepsis New/Unexplained Change in Mental Status Sepsis Action Taken by Nursing Pulse Oximetry Post Tiitration Laboratory Data 03/12/23 19:11 03/12/23 19:11 Lab Results 03/12/23 03/12/23 03/12/23 Range/Units 19:11 19:11 19:11 WBC 15.17 H (4.8-10.8) K/ul RBC 4.47 L (4.70-6.10) M/uL Hgb 14.8 (14.0-18.0) g/dl Hct 43.0 (42.0-52.0) % MCV 96.2 (80.0-100.0) fL MCH 33.1 (25.0-34.0) pg MCHC 34.4 (32.0-36.0) g/dL RDW Std Deviation 48.7 H (36.4-46.3) fL RDW Coeff of Brianda 13.8 (11.5-14.5) % Plt Count 256 (130-400) K/uL MPV 10.7 (9.4-12.4) fL Immature Gran % (Auto) 0.5 % Neut % (Auto) 73.2 % Lymph % (Auto) 15.8 % Barber % (Auto) 9.7 % Eos % (Auto) 0.4 % Baso % (Auto) 0.4 % Neut # (Auto) 11.11 H (1.40-6.50) K/uL Lymph # (Auto) 2.40 (1.2-3.4) K/uL Barber # (Auto) 1.47 H (0.11-0.59) K/uL Eos # (Auto) 0.06 (0-0.50) K/uL Baso # (Auto) 0.06 (0-0.2) K/uL Immature Gran # (Auto) 0.07 (0.01-0.20) K/uL Sodium 140 (136-145) mmol/L Potassium 3.5 (3.5-5.1) mmol/L Chloride 105 (98-107) mmol/L Carbon Dioxide 17 L (21-32) mmol/L Anion Gap 18 H (3-11) BUN 7 (6-23) mg/dl Creatinine 0.77 (0.6-1.4) mg/dl Est Cr Clr Drug Dosing 86.0 ml/min Est GFR ( Amer) 112.7 ml/min Est GFR (Non-Af Amer) 97.3 ml/min BUN/Creatinine Ratio 9.1 L (10-20) Glucose 114 H (70-99(Fasting)) mg/dl Calcium 9.9 (8.6-10.3) mg/dl Magnesium 2.0 (1.7-2.4) mg/dl Total Bilirubin 0.6 (0.2-1.0) mg/dl Direct Bilirubin 0.1 (0-0.2) mg/dl AST 20 (13-39) U/L ALT 12 (7-52) U/L Alkaline Phosphatase 76 (34-104) U/L Troponin I High Sens 4.6 (0-20) pg/ml Total Protein 8.3 (6.0-8.3) gm/dl Albumin 4.6 (3.4-5.0) gm/dl Lipase (11-82) U/L Procalcitonin (0-0.5) ng/ml TSH 1.638 (0.300-4.500) uIu/ml Ethyl Alcohol mg/dL (<10.0) mg/dl SARS-CoV-2 (PCR) (Negative) 03/12/23 03/12/23 03/12/23 Range/Units 19:11 19:40 22:35 WBC (4.8-10.8) K/ul RBC (4.70-6.10) M/uL Hgb (14.0-18.0) g/dl Hct (42.0-52.0) % MCV (80.0-100.0) fL MCH (25.0-34.0) pg MCHC (32.0-36.0) g/dL RDW Std Deviation (36.4-46.3) fL RDW Coeff of Brianda (11.5-14.5) % Plt Count (130-400) K/uL MPV (9.4-12.4) fL Immature Gran % (Auto) % Neut % (Auto) % Lymph % (Auto) % Barber % (Auto) % Eos % (Auto) % Baso % (Auto) % Neut # (Auto) (1.40-6.50) K/uL Lymph # (Auto) (1.2-3.4) K/uL Barber # (Auto) (0.11-0.59) K/uL Eos # (Auto) (0-0.50) K/uL Baso # (Auto) (0-0.2) K/uL Immature Gran # (Auto) (0.01-0.20) K/uL Sodium (136-145) mmol/L Potassium (3.5-5.1) mmol/L Chloride (98-107) mmol/L Carbon Dioxide (21-32) mmol/L Anion Gap (3-11) BUN (6-23) mg/dl Creatinine (0.6-1.4) mg/dl Est Cr Clr Drug Dosing ml/min Est GFR ( Amer) ml/min Est GFR (Non-Af Amer) ml/min BUN/Creatinine Ratio (10-20) Glucose (70-99(Fasting)) mg/dl Calcium (8.6-10.3) mg/dl Magnesium (1.7-2.4) mg/dl Total Bilirubin (0.2-1.0) mg/dl Direct Bilirubin (0-0.2) mg/dl AST (13-39) U/L ALT (7-52) U/L Alkaline Phosphatase (34-104) U/L Troponin I High Sens (0-20) pg/ml Total Protein (6.0-8.3) gm/dl Albumin (3.4-5.0) gm/dl Lipase (11-82) U/L Procalcitonin 0.08 (0-0.5) ng/ml TSH (0.300-4.500) uIu/ml Ethyl Alcohol mg/dL < 10.0 (<10.0) mg/dl SARS-CoV-2 (PCR) NEGATIVE (Negative) 03/12/23 Range/Units 22:35 WBC (4.8-10.8) K/ul RBC (4.70-6.10) M/uL Hgb (14.0-18.0) g/dl Hct (42.0-52.0) % MCV (80.0-100.0) fL MCH (25.0-34.0) pg MCHC (32.0-36.0) g/dL RDW Std Deviation (36.4-46.3) fL RDW Coeff of Brianda (11.5-14.5) % Plt Count (130-400) K/uL MPV (9.4-12.4) fL Immature Gran % (Auto) % Neut % (Auto) % Lymph % (Auto) % Barber % (Auto) % Eos % (Auto) % Baso % (Auto) % Neut # (Auto) (1.40-6.50) K/uL Lymph # (Auto) (1.2-3.4) K/uL Barber # (Auto) (0.11-0.59) K/uL Eos # (Auto) (0-0.50) K/uL Baso # (Auto) (0-0.2) K/uL Immature Gran # (Auto) (0.01-0.20) K/uL Sodium (136-145) mmol/L Potassium (3.5-5.1) mmol/L Chloride (98-107) mmol/L Carbon Dioxide (21-32) mmol/L Anion Gap (3-11) BUN (6-23) mg/dl Creatinine (0.6-1.4) mg/dl Est Cr Clr Drug Dosing ml/min Est GFR ( Amer) ml/min Est GFR (Non-Af Amer) ml/min BUN/Creatinine Ratio (10-20) Glucose (70-99(Fasting)) mg/dl Calcium (8.6-10.3) mg/dl Magnesium (1.7-2.4) mg/dl Total Bilirubin (0.2-1.0) mg/dl Direct Bilirubin (0-0.2) mg/dl AST (13-39) U/L ALT (7-52) U/L Alkaline Phosphatase (34-104) U/L Troponin I High Sens (0-20) pg/ml Total Protein (6.0-8.3) gm/dl Albumin (3.4-5.0) gm/dl Lipase 14 (11-82) U/L Procalcitonin (0-0.5) ng/ml TSH (0.300-4.500) uIu/ml Ethyl Alcohol mg/dL (<10.0) mg/dl SARS-CoV-2 (PCR) (Negative) Imaging Data Radiologist's Impression: Head CT 03/12/23 19:01 Exam(s): CT HEAD Without Contrast EXAM: CT Head Without Intravenous Contrast CLINICAL HISTORY: Reason for exam: seizure, vomiting. TECHNIQUE: Axial computed tomography images of the head/brain without intravenous contrast. CTDI is 37.08 mGy and DLP is 625.8 mGy-cm. Automated exposure control was utilized for the study. A dose lowering technique was utilized adhering to the principles of ALARA. COMPARISON: August 07, 2021 FINDINGS: Brain: Mild cerebral atrophy and trace amount of periventricular white matter low density consistent with early chronic small vessel disease. The brain is otherwise unremarkable. No acute large vessel infarct or intracranial hemorrhage is identified. Ventricles: Unremarkable. No ventriculomegaly. Bones/joints: Unremarkable. No acute fracture. Soft tissues: Unremarkable. Sinuses: Unremarkable as visualized. No acute sinusitis. Mastoid air cells: Unremarkable as visualized. No mastoid effusion. IMPRESSION: Mild cerebral atrophy and trace amount of periventricular white matter low density consistent with early chronic small vessel disease, unchanged. The brain is otherwise unremarkable. No acute large vessel infarct or intracranial hemorrhage is identified. Electronically signed by: Michael Cordon MD 03/12/23 22:26 PM Discharge Plan Visit Data Chief Complaint: Seizure Stated Complaint: SEIZURES ED Provider: Jorge Quan Discharge Problem: Post-ictal confusion, Seizure Forms Stand Alone Forms: My [facility] [employer] Prescriptions Prescriptions: No Action pantoprazole 40 mg tablet,delayed release (DR/EC) 40 mg PO DAILY Qty: 30 3RF thiamine HCl (vitamin B1) 100 mg tablet 100 mg PO QAM Qty: 30 4RF folic acid 1 mg tablet 2 mg PO QAM Qty: 180 1RF levothyroxine [Synthroid] 25 mcg tablet 25 mcg PO DAILYBB Qty: 90 1RF lamotrigine [Lamictal] 100 mg tablet 100 mg PO BID Qty: 60 6RF cyanocobalamin (vitamin B-12) [Vitamin B-12] 1,000 mcg tablet 1,000 mcg PO DAILY Qty: 30 5RF Rx Instructions: purchase [id number] sertraline 25 mg tablet 25 mg PO DAILY Qty: 90 2RF Combivent Respimat 20-100 mcg/actuation mist 1 puff inhalation QID PRN (Reason: Shortness Of Breath) Rx Instructions: PER SPOUSE "USES ONLY WHEN NEEDED". space evenly during waking hours magnesium oxide 400 mg (241.3 mg magnesium) Tablet 400 mg PO HS Qty: 30 0RF Rx Instructions: OTC Referrals Referrals: Albania Vasquez DO [Primary Care Provider] -
[2023-03-12 19:35] LABS: Basophils # (auto) 0.06 K/uL (0-0.2); Basophils % (auto) 0.4 %; Eosinophils # (auto) 0.06 K/uL (0-0.50); Eosinophils % (auto) 0.4 %; Hemoglobin 14.8 g/dl (14.0-18.0); Immature Granulocytes # (auto) 0.07 K/uL (0.01-0.20); Immature Granulocytes % (auto) 0.5 %; Lymphocytes % (auto) 15.8 %; Mean Corpuscular Hemoglobin 33.1 pg (25.0-34.0); Mean Corpuscular Hgb Conc 34.4 g/dL (32.0-36.0); Mean Corpuscular Volume 96.2 fL (80.0-100.0); Mean Platelet Volume 10.7 fL (9.4-12.4); Monocytes # (auto) 1.47 K/uL (0.11-0.59); Monocytes % (auto) 9.7 %; Neutrophils # (auto) 11.11 K/uL (1.40-6.50); Neutrophils % (auto) 73.2 %; Platelet Count 256 K/uL (130-400); RDW Coefficient of Variation 13.8 % (11.5-14.5); RDW Standard Deviation 48.7 fL (36.4-46.3); Red Blood Count 4.47 M/uL (4.70-6.10); White Blood Count 15.17 K/ul (4.8-10.8)
[2023-03-12 20:04] LABS: Albumin Level 4.6 gm/dl (3.4-5.0); BUN Creatinine Ratio 9.1 (10-20); Bilirubin Direct 0.1 mg/dl (0-0.2); Bilirubin,Total 0.6 mg/dl (0.2-1.0); Calcium 9.9 mg/dl (8.6-10.3); Est GFR (African American) 112.7 ml/min; Est GFR (Non-African American) 97.3 ml/min; Potassium 3.5 mmol/L (3.5-5.1); Total Protein 8.3 gm/dl (6.0-8.3)
[2023-03-12 20:08] LABS: Troponin I High Sensitivity 4.6 pg/ml (0-20)
--- NOTE | 2023-03-12 22:27 | CT Scan Report ---
Exam(s): CT HEAD Without Contrast EXAM: CT Head Without Intravenous Contrast CLINICAL HISTORY: Reason for exam: seizure, vomiting. TECHNIQUE: Axial computed tomography images of the head/brain without intravenous contrast. CTDI is 37.08 mGy and DLP is 625.8 mGy-cm. Automated exposure control was utilized for the study. A dose lowering technique was utilized adhering to the principles of ALARA. COMPARISON: August 07, 2021 FINDINGS: Brain: Mild cerebral atrophy and trace amount of periventricular white matter low density consistent with early chronic small vessel disease. The brain is otherwise unremarkable. No acute large vessel infarct or intracranial hemorrhage is identified. Ventricles: Unremarkable. No ventriculomegaly. Bones/joints: Unremarkable. No acute fracture. Soft tissues: Unremarkable. Sinuses: Unremarkable as visualized. No acute sinusitis. Mastoid air cells: Unremarkable as visualized. No mastoid effusion. IMPRESSION: Mild cerebral atrophy and trace amount of periventricular white matter low density consistent with early chronic small vessel disease, unchanged. The brain is otherwise unremarkable. No acute large vessel infarct or intracranial hemorrhage is identified. Electronically signed by: Michael Cordon MD 03/12/23 22:26 PM
--- NOTE | 2023-03-12 23:09 | History & Physical Report ---
Date of Service March 12, 2023 Assessment & Plan (1) Seizure: Plan: 62yo male with known seizure disorder presenting from home after two witnessed seizures, prolonged post-ictal period. He is now resting comfortably, oriented and following commands. Reports that his last seizure was in July 2022. -Admit to medical -Maintain seizure precautions -Check Lamictal level -Continue Lamictal -Initial labs with anion gap metabolic acidosis with Gap of 18, HCO3 of 17 - likely secondary to lactic acidosis from recent seizure. Remainder of electrolytes are WNL Will check UTox Check serum Osm Repeat chemistry in AM (2) Post-ictal confusion: Plan: As above. Improving -Maintain seizure precautions (3) Alcohol abuse: Plan: Patient reports drinking 1-2 drinks per day. Last drink was 2 days ago. Does not report cravings for EtOH or shakes. Hemodynamically stable with no tachycardia or elevation of blood pressure. Does not appear to be in acute EtOH withdrawal. Do not at this time think that his seizure was secondary to EtOH or withdrawal. -Banana bag -Continue Thiamine and Folic Acid -AWSS at risk protocol (4) Hypothyroidism: Plan: Chronic -Continue Synthroid (5) GERD without esophagitis: Plan: Chronic -Continue Protonix (6) COPD (chronic obstructive pulmonary disease): Plan: Chronic. No current SOB or wheeze -Wean O2 as tolerated. Patient does not use O2 at home -Continue Combivent Respimat PRN History of Present Illness Chief Complaint: seizure Primary Care Provider: [place]ia Vasquez DO Jorge Coronado is a 62yo male with history of COPD, GERD, HTN and Seizure disorder presenting from home after two witnessed seizures. Patient reports he has been in his usual state of health. He was at home this evening with his significant other, Charmaine, when he developed numbness of the right arm around 17:00. He then proceeded to have two seizures. EMS was called and the patient was administered Ativan with cessation of seizure activity. He arrived to the ER afebrile, HD stable. He was obtunded/post-ictal and not responding to questions or commands. He did become hypoxic on room air to 87% due to poor inspiratory effort requiring placement of supplemental O2 by [place]. Patient remained obtunded for several hours. During my encounter patient was sleeping comfortably. Arousable to verbal stimuli. He was able to answer questions and follow commands. He denies additional complaints at this time. Reports that he is compliant with his medications. He reports eating well but having poor sleep overall. Denies head trauma, fever, chills. Allergies Allergy/AdvReac Type Severity Reaction Status Date / Time No Known Allergies Allergy Verified 12/27/22 08:25 Home Medications Medication Instructions Recorded Confirmed Type ipratropium 20 mcg-albuterol 100 1 puff inhalation QID PRN 07/15/22 03/12/23 History mcg/actuation mist for inhalation Shortness Of Breath (Combivent Respimat) cyanocobalamin (vitamin B-12) 1,000 mcg PO DAILY #30 tabs 08/29/22 03/12/23 Rx 1,000 mcg tablet (Vitamin B-12) lamotrigine 100 mg tablet 100 mg PO BID #60 tabs 10/18/22 03/12/23 Rx (Lamictal) magnesium oxide 400 mg (241.3 mg 400 mg PO HS #30 tabs 12/03/22 03/12/23 Rx magnesium) tablet sertraline 25 mg tablet 25 mg PO DAILY #90 tabs 12/27/22 03/12/23 Rx pantoprazole 40 mg tablet,delayed 40 mg PO DAILY #30 tabs 12/28/22 03/12/23 Rx release thiamine HCl (vitamin B1) 100 mg 100 mg PO QAM #30 tabs 02/08/23 03/12/23 Rx tablet folic acid 1 mg tablet 2 mg PO QAM #180 tabs 02/26/23 03/12/23 Rx levothyroxine 25 mcg tablet 25 mcg PO DAILYBB #90 tabs 02/26/23 03/12/23 Rx (Synthroid) Past Med/Surg History Medical History Alcohol abuse Anxiety Cervical spondylosis COPD (chronic obstructive pulmonary disease) controlled w/ inhaler use Cricopharyngeal dysphagia Per 08/2022 records- stable; video swallow with cricopharyngeal bar; s/p EGD 1 09/27/21 with esophageal stenosis which was like cause of the bar seen- s/p dilation- dysphagia improved/resolved Degenerative disc disease Depression Esophageal dysphagia Improved per 08/2022 PCP records GERD without esophagitis History of pancreatitis (~02/2020) S/p ERCP on 07/16/22 with large gallbladder stone removed. Biliary sphincterectomy and stent placed to be removed in 3 months. Hx of aspiration pneumonitis 07/2022- treated with abx Hx of pleural effusion Hx of seizure disorder Last seizure 08/2021- has not had one since started lamictal (did confirmed 10/27/22 with patient's caregiver that he is taking Lamictal daily) Hypertension Hypothyroidism Macrocytic anemia Marijuana use Mesial temporal sclerosis Stable per 10/18/22 neuro note Other symptoms and signs involving cognitive functions and awareness Poor historian Thrombocytopenia Tobacco dependence Vertebral artery stenosis Per 07/2020 Neck CTA- severe stenosis of the left vertebral artery of the C4 level due to osteophytes Surgical History History of colonoscopy History of esophagogastroduodenoscopy (EGD) 10/19/20 [facility] Hx of neck surgery (05/2018) cervical fusion (C2-C3?) Full ROM S/P epidural steroid injection Status post tooth extraction Family History Aunt Parkinson disease Cerebral aneurysm Mother Cerebral aneurysm Depression Anemia Uncle Cerebral aneurysm Other No family history of adverse response to anesthesia Denies family history of Ovarian cancer Prostate cancer Myocardial infarction Breast cancer Lung cancer Colorectal cancer Social History Smoking Status: Smoker, status unknown Tobacco Type: Cigarettes Age Started Using Tobacco: 17; packs per day: 1; Cigarettes Per Day: 20 per day- advised; Second Hand Exposure: No; Do You Dip or Chew Tobacco: No; Hx Alcohol Use: Yes Alcohol type: hard liquor Alcohol Intake Frequency Comment: fifth of vodka per week Hx Substance Use: Yes (advised) Prescribed Medications: Marijuana Last Used Substance: Days (ago) Substance Use Type Other:: Daily Preferred Language: Sinhala Communication Ability: Effective Visual Impairment: No Limitations Hearing Ability: Normal Template Storage Clerk Required: No Beliefs That Will Affect Care: None marital status: Single Current Living Situation: Spouse, Family and Significant Other Current Living Situation Comment: Charmaine current occupational status: disabled Feels Safe at Home: Yes Childhood Exposure to Second-Hand Smoke: Yes Diet: regular Diet Comment: regular caffeine: No during the past year weight has: remained stable Dental Care, Regularly: No Physical Activity Frequency: Does not Exercise Seatbelt Use: always Sunscreen Use: No Assistive Devices: Cane and Walker Review of Systems Review of Systems: All systems reviewed & are unremarkable except as noted in HPI & below Physical Exam Physical Exam: General: patient resting comfortably, NAD, non-toxic in appearance, AA&O x 4 Skin: warm, dry, intact, no rashes or lesions HEENT: NC/AT, PERRL, EOMI, anicteric sclera, conjunctiva without injection, external ear normal to inspection and nontender, nares patent, moist mucus membranes, dentition intact, no oropharyngeal lesions, neck supple, trachea midline, no LAD, no thyromegaly, no JVD Heart: +S1/S2, regular, no m/r/g Lungs: equal air entry bilaterally, no rales/rhonchi/wheezes Abd: +BS, soft, NT/ND, no masses/organomegaly/ascites Ext: warm, 2+ pulses in UE/LE bilaterally, no clubbing/cyanosis or edema Neuro: nonfocal, patient AA&O x 4, speech intact, no facial droop, moving all extremities on command with equal strength 5/5 Results & Data Results & Data Vital Signs (Past 12 Hours) Vital Signs Temp Pulse Resp BP Pulse Ox O2 Del Method O2 Flow Rate 03/12/23 22:30 91 H 22 131/70 97 Nasal Cannula 1 03/12/23 22:00 90 19 113/69 98 Nasal Cannula 1 03/12/23 21:30 90 20 133/74 96 Nasal Cannula 1 03/12/23 21:00 89 16 122/66 99 Nasal Cannula 1 03/12/23 20:38 87 17 133/68 100 Nasal Cannula 1 03/12/23 20:00 89 21 99 Nasal Cannula 1 03/12/23 19:30 93 H 24 87 L Room Air 03/12/23 19:05 99 H 25 H 99 Room Air 03/12/23 19:56 87 L Nasal Cannula 1 03/12/23 19:01 36.4 C L 94 H 25 H 153/79 H 92 Room Air Laboratory Results Laboratory Results WBC 15.17 K/ul (4.8-10.8) H 03/12/23 19:11 RBC 4.47 M/uL (4.70-6.10) L 03/12/23 19:11 Hgb 14.8 g/dl (14.0-18.0) 03/12/23 19:11 Hct 43.0 % (42.0-52.0) 03/12/23 19:11 MCV 96.2 fL (80.0-100.0) 03/12/23 19:11 MCH 33.1 pg (25.0-34.0) 03/12/23 19:11 MCHC 34.4 g/dL (32.0-36.0) 03/12/23 19:11 RDW Std Deviation 48.7 fL (36.4-46.3) H 03/12/23 19:11 RDW Coeff of Brianda 13.8 % (11.5-14.5) 03/12/23 19:11 Plt Count 256 K/uL (130-400) 03/12/23 19:11 MPV 10.7 fL (9.4-12.4) 03/12/23 19:11 Immature Gran % (Auto) 0.5 % 03/12/23 19:11 Neut % (Auto) 73.2 % 03/12/23 19:11 Lymph % (Auto) 15.8 % 03/12/23 19:11 Hendry % (Auto) 9.7 % 03/12/23 19:11 Eos % (Auto) 0.4 % 03/12/23 19:11 Baso % (Auto) 0.4 % 03/12/23 19:11 Neut # (Auto) 11.11 K/uL (1.40-6.50) H 03/12/23 19:11 Lymph # (Auto) 2.40 K/uL (1.2-3.4) 03/12/23 19:11 Hendry # (Auto) 1.47 K/uL (0.11-0.59) H 03/12/23 19:11 Eos # (Auto) 0.06 K/uL (0-0.50) 03/12/23 19:11 Baso # (Auto) 0.06 K/uL (0-0.2) 03/12/23 19:11 Immature Gran # (Auto) 0.07 K/uL (0.01-0.20) 03/12/23 19:11 Sodium 140 mmol/L (136-145) 03/12/23 19:11 Potassium 3.5 mmol/L (3.5-5.1) 03/12/23 19:11 Chloride 105 mmol/L (98-107) 03/12/23 19:11 Carbon Dioxide 17 mmol/L (21-32) L 03/12/23 19:11 Anion Gap 18 (3-11) H 03/12/23 19:11 BUN 7 mg/dl (6-23) 03/12/23 19:11 Creatinine 0.77 mg/dl (0.6-1.4) 03/12/23 19:11 Est Cr Clr Drug Dosing 86.0 ml/min 03/12/23 19:11 Est GFR ( Amer) 112.7 ml/min 03/12/23 19:11 Est GFR (Non-Af Amer) 97.3 ml/min 03/12/23 19:11 BUN/Creatinine Ratio 9.1 (10-20) L 03/12/23 19:11 Glucose 114 mg/dl (70-99(Fasting)) H 03/12/23 19:11 Calcium 9.9 mg/dl (8.6-10.3) 03/12/23 19:11 Magnesium 2.0 mg/dl (1.7-2.4) 03/12/23 19:11 Total Bilirubin 0.6 mg/dl (0.2-1.0) 03/12/23 19:11 Direct Bilirubin 0.1 mg/dl (0-0.2) 03/12/23 19:11 AST 20 U/L (13-39) 03/12/23 19:11 ALT 12 U/L (7-52) 03/12/23 19:11 Alkaline Phosphatase 76 U/L (34-104) 03/12/23 19:11 Troponin I High Sens 4.6 pg/ml (0-20) 03/12/23 19:11 Total Protein 8.3 gm/dl (6.0-8.3) 03/12/23 19:11 Albumin 4.6 gm/dl (3.4-5.0) 03/12/23 19:11 Lipase 14 U/L (11-82) 03/12/23 22:35 Procalcitonin 0.08 ng/ml (0-0.5) 03/12/23 19:11 TSH 1.638 uIu/ml (0.300-4.500) 03/12/23 19:11 Ethyl Alcohol mg/dL < 10.0 mg/dl (<10.0) 03/12/23 22:35 SARS-CoV-2 (PCR) NEGATIVE (Negative) 03/12/23 19:[address] 03/12/23 19:01 Exam(s): CT HEAD Without Contrast EXAM: CT Head Without Intravenous Contrast CLINICAL HISTORY: Reason for exam: seizure, vomiting. TECHNIQUE: Axial computed tomography images of the head/brain without intravenous contrast. CTDI is 37.08 mGy and DLP is 625.8 mGy-cm. Automated exposure control was utilized for the study. A dose lowering technique was utilized adhering to the principles of ALARA. COMPARISON: August 07, 2021 FINDINGS: Brain: Mild cerebral atrophy and trace amount of periventricular white matter low density consistent with early chronic small vessel disease. The brain is otherwise unremarkable. No acute large vessel infarct or intracranial hemorrhage is identified. Ventricles: Unremarkable. No ventriculomegaly. Bones/joints: Unremarkable. No acute fracture. Soft tissues: Unremarkable. Sinuses: Unremarkable as visualized. No acute sinusitis. Mastoid air cells: Unremarkable as visualized. No mastoid effusion. IMPRESSION: Mild cerebral atrophy and trace amount of periventricular white matter low density consistent with early chronic small vessel disease, unchanged. The brain is otherwise unremarkable. No acute large vessel infarct or intracranial hemorrhage is identified. Electronically signed by: Michael Cordon MD 03/12/23 22:26 PM PG Care Time/CCT Total # of Minutes Spent Total Time Spent with Patient: Total time spent is greater than 50% in coordination of care (as documented) at patient's floor/unit and/or counseling patient: Coding Level of Care Code 93672 INT INP/OBS CARE 2/55MIN Diagnoses Seizure R56.9 Post-ictal confusion F05 Alcohol abuse F10.10 Hypothyroidism E03.9 GERD without esophagitis K21.9 COPD (chronic obstructive pulmonary disease) J44.9
[2023-03-13] MEDS ORDERED: IPRATROPIUM BROMIDE/ALBUTEROL respimat INH INH PRN (00:37)
[2023-03-13] MEDS ORDERED: ONDANSETRON INJ 2 MG/ML 2 ML VIAL IV PRN (00:37)
[2023-03-13] MEDS ORDERED: CEROVITE ADV FORMULA TAB PO STA (00:37)
[2023-03-13] MEDS ORDERED: LORazepam 2 MG/1 ML VIAL IV PRN (00:37)
[2023-03-13] MEDS ORDERED: Ipratropium HFA Inhaler (Combivent Respimat P&T Subs) INH PRN (01:15)
[2023-03-13] MEDS ORDERED: Albuterol HFA 8 GM Inhaler (Combivent Respimat P&T Subs) INH PRN (01:15)
[2023-03-13 01:18] LABS: Appearance Urine Clear (Clear); Bacteria Urine Automated Negative (Negative); Bilirubin Urine Negative (Negative); Blood Urine Negative (Negative); Color Urine Dark Yellow; Epithelial Cell Urine Auto >30 /lpf (0-5); Glucose Urine UA Negative (Negative); Ketones Urine 2+ (Negative); Leukocyte Esterase Urine Negative (Negative); Nitrite Urine Negative (Negative); Protein Urine 1+ (Negative); RBC Urine Automated 0-4 /hpf (0-4); Specific Gravity Urine 1.022 (1.000-1.030); Urobilinogen Urine Negative (Negative)
[2023-03-13] MEDS ORDERED: THIAMINE HCL 100 MG, FOLIC ACID 1 MG in SODIUM CHLORIDE 0.9% 1000ML 1,000 ML IV SCH (01:30)
[2023-03-13 01:39] LABS: Amphetamines+Metham, Urine Neg (Neg); Barbiturates, Urine Neg (Neg); Benzodiazepine, Urine Neg (Neg); Cocaine, Urine Neg (Neg); MDMA (Ecstacy), Urine Neg (Neg); Methadone, Urine Neg (Neg); Opiate, Urine Neg (Neg); Phencyclidine, Urine Neg (Neg)
[2023-03-13] MEDS: LEVOTHYROXINE SODIUM 25 MCG TABLET PO SCH (05:49)
[2023-03-13 06:33] LABS: Hematocrit (blood only) 37.3 % (42.0-52.0); Hemoglobin 13.1 g/dl (14.0-18.0); Mean Corpuscular Hemoglobin 32.8 pg (25.0-34.0); Mean Corpuscular Hgb Conc 35.1 g/dL (32.0-36.0); Mean Corpuscular Volume 93.5 fL (80.0-100.0); Platelet Count 245 K/uL (130-400); RDW Coefficient of Variation 13.8 % (11.5-14.5); RDW Standard Deviation 47.5 fL (36.4-46.3); Red Blood Count 3.99 M/uL (4.70-6.10); White Blood Count 14.99 K/ul (4.8-10.8)
[2023-03-13 06:53] LABS: Calcium 8.6 mg/dl (8.6-10.3); Creatinine Clr Calc Pharmacy 105.8 ml/min; Est GFR (African American) 124.9 ml/min; Est GFR (Non-African American) 107.8 ml/min; Potassium 3.9 mmol/L (3.5-5.1)
--- NOTE | 2023-03-13 07:10 | XRay Report ---
SINGLE VIEW CHEST CLINICAL HISTORY: Hypoxia. Seizure and vomiting. FINDINGS: An AP, portable, upright chest radiograph is compared to study dated 11/29/2022 and correlat ed with chest CT dated 07/29/2022. The cardiomediastinal silhouette is unremarkable. Chronic intersti tial thickening is similar to previous. There are scattered foci of parenchymal scarring. No airspace consolidation or large pleural effusion is identified. No pneumothorax is seen. The skeletal structu res are osteopenic. There are chronic/healed right-sided rib fractures. Fusion hardware is noted in t he lower cervical spine. IMPRESSION: No acute cardiopulmonary abnormality. ACT 112: Negative or not required by law. Electronically signed by: Almas Shaffer M.D. 03/13/2023 7:08 AM
[2023-03-13] MEDS: FOLIC ACID 1 MG TAB PO SCH (08:25)
[2023-03-13] MEDS: SERTRALINE HCL 50 MG TABLET PO SCH (08:26)
[2023-03-13] MEDS: THIAMINE HCL 100 MG TAB PO SCH (08:26)
[2023-03-13] MEDS: PANTOprazole 40 MG TAB PO SCH (08:27)
[2023-03-13] MEDS ORDERED: lamoTRIgine 100 MG TAB PO SCH (09:00)
[2023-03-13] MEDS: lamoTRIgine 100 MG TAB PO SCH ×2 (09:35→20:55)
--- NOTE | 2023-03-13 12:01 | Electrocardiogram Report ---
Test Reason : Blood Pressure : / mmHG Vent. Rate : 093 BPM Atrial Rate : 093 BPM P-R Int : 134 ms QRS Dur : 088 ms QT Int : 376 ms P-R-T Axes : 084 070 059 degrees QTc Int : 467 ms Normal sinus rhythm Nonspecific ST abnormality Abnormal ECG When compared with ECG of 29-NOV-2022 08:31, No significant change was found Confirmed by Santos Chinchilla ([id number]) on 03/13/2023 12:01:42 PM Referred By: REFERRED SELF Confirmed By:Irwin Chinchilla
--- NOTE | 2023-03-13 13:20 | Hospitalist Progress Note ---
Date of Service March 13, 2023 Assessment & Plan (1) Seizure: Plan: No recurrence since admission. Lamotrigine dosage increased to 150 mg twice a day. Currently stable. Seizure precautions are active. Hopefully he can go home tomorrow, March 14 (2) Post-ictal confusion: Plan: Now resolved (3) Alcohol abuse: Plan: Alcohol cessation recommended. Supportive care. He received a banana bag this admission. Continue Thiamine and Folic Acid (4) Hypothyroidism: Plan: Stable. Continue Synthroid replacement therapy (5) GERD without esophagitis: Plan: Stable. Continue Protonix (6) COPD (chronic obstructive pulmonary disease): Plan: Stable. Continue Combivent Respimat PRN Plan Hopefully home tomorrow, March 14 Admission and Anticipated Discharge Date Admission Date: March 12, 2023 Subjective Alert and oriented. No complaints. Lamotrigine increased to 150 mg twice a day from his usual 100 mg twice a day. Hopefully he can go home tomorrow, March 14 Review of Systems Review of Systems: Constitutional-no fever or chills ENT-no blurred vision, no double vision, no epistaxis, no sore throat Respiratory-no cough, no wheezing, no shortness of breath Cardiac-no palpitations, no chest pain, no syncope GI-no nausea, vomiting, diarrhea, melena, hematochezia -no urinary retention, no urinary incontinence, no dysuria, no hematuria Musculoskeletal-no joint pain, no muscle tenderness Skin-no bruising, no rashes, no pruritus Neuro-no isolated weakness, no paresthesia, no weakness Psych-no depression, no anxiety Physical Exam Physical Exam: General-alert and oriented x3, no fevers, no chills HEENT-head atraumatic and normocephalic, pupils equal and reactive to light, extraocular muscles intact Neck-no lymphadenopathy or thyromegaly, trachea midline Chest-clear to auscultation percussion. No rales wheezing or rhonchi Cardiac-regular rate and rhythm, normal S1 and S2 Abdomen-normal bowel sounds, nontender, no hepatosplenomegaly Extremities-no cyanosis, clubbing, or edema Neuro-cranial nerves II through XII intact, motor and sensory function within normal limits, strength symmetrical , no focal deficits Psych-normal affect, normal mood Results & Data Results & Data Vital Signs (Past 12 Hours) Vital Signs Temp Pulse Pulse Resp BP BP Pulse Ox 03/13/23 09:00 03/13/23 10:48 36.9 C 77 16 132/61 98 03/13/23 08:21 36.8 C 73 18 127/70 99 03/13/23 07:11 73 03/13/23 03:15 37.1 C 87 18 128/76 100 O2 Del Method O2 Flow Rate 03/13/23 09:00 Room Air 03/13/23 10:48 Room Air 03/13/23 08:21 Nasal Cannula 03/13/23 07:11 03/13/23 03:15 Nasal Cannula 2 Laboratory Results 03/13/23 05:45 03/13/23 05:45 PG Care Time/CCT Total # of Minutes Spent Total Time Spent with Patient: Total time spent is greater than 50% in coordination of care (as documented) at patient's floor/unit and/or counseling patient: Coding Level of Care Code 09486 SUB INP/OBS CARE 3/50MIN Diagnoses Seizure R56.9 Post-ictal confusion F05 Alcohol abuse F10.10 Hypothyroidism E03.9 GERD without esophagitis K21.9 COPD (chronic obstructive pulmonary disease) J44.9
[2023-03-13] MEDS: ACETAMINOPHEN 325 MG TAB PO PRN (20:56)
[2023-03-14] MEDS: LEVOTHYROXINE SODIUM 25 MCG TABLET PO SCH (05:30)
[2023-03-14] MEDS: lamoTRIgine 100 MG TAB PO SCH (07:37)
[2023-03-14] MEDS: FOLIC ACID 1 MG TAB PO SCH (07:38)
[2023-03-14] MEDS: THIAMINE HCL 100 MG TAB PO SCH (07:38)
[2023-03-14] MEDS: SERTRALINE HCL 50 MG TABLET PO SCH (07:38)
[2023-03-14] MEDS: PANTOprazole 40 MG TAB PO SCH (07:38)
[2023-03-14] MEDS: ACETAMINOPHEN 325 MG TAB PO PRN (07:40)
--- NOTE | 2023-03-14 11:28 | Discharge Summary ---
Date of Service March 14, 2023 Admission HPI Per Admitting Provider Jorge Coronado is a 62yo male with history of COPD, GERD, HTN and Seizure disorder presenting from home after two witnessed seizures. Patient reports he has been in his usual state of health. He was at home this evening with his significant other, Charmaine, when he developed numbness of the right arm around 17:00. He then proceeded to have two seizures. EMS was called and the patient was administered Ativan with cessation of seizure activity. He arrived to the ER afebrile, HD stable. He was obtunded/post-ictal and not responding to questions or commands. He did become hypoxic on room air to 87% due to poor inspiratory effort requiring placement of supplemental O2 by [place]. Patient remained obtunded for several hours. During my encounter patient was sleeping comfortably. Arousable to verbal stimuli. He was able to answer questions and follow commands. He denies additional complaints at this time. Reports that he is compliant with his medications. He reports eating well but having poor sleep overall. Denies head trauma, fever, chills. Principal Diagnosis Recurrent seizure with seizure disorder Discharge Exam General-alert and oriented x3, no fevers, no chills HEENT-head atraumatic and normocephalic, pupils equal and reactive to light, extraocular muscles intact Neck-no lymphadenopathy or thyromegaly, trachea midline Chest-clear to auscultation percussion. No rales wheezing or rhonchi Cardiac-regular rate and rhythm, normal S1 and S2 Abdomen-normal bowel sounds, nontender, no hepatosplenomegaly Extremities-no cyanosis, clubbing, or edema Neuro-cranial nerves II through XII intact, motor and sensory function within normal limits, strength symmetrical , no focal deficits Psych-normal affect, normal mood Discharge Data Allergies Allergy/AdvReac Type Severity Reaction Status Date / Time No Known Allergies Allergy Verified 12/27/22 08:25 Ordered Studies 03/12/23 19:01 CT head/brain wo con Stat Hospital Course (1) Seizure: No recurrence since admission. Lamotrigine dosage has been increased to 150 mg twice a day. Currently stable. Seizure precautions are active. (2) Post-ictal confusion: Now resolved (3) Alcohol abuse: Alcohol cessation recommended. Supportive care. He received a banana bag this admission. Continue Thiamine and Folic Acid (4) Hypothyroidism: Stable. Continue Synthroid replacement therapy (5) GERD without esophagitis: Stable. Continue Protonix (6) COPD (chronic obstructive pulmonary disease): Stable. Continue Combivent Respimat PRN Plan Home today, March 14, on a higher dose of Lamictal Total Time Total Time Spent Total Time Spent (In Minutes): 45-minute Discharge Plan Discharge Items Patient Disposition: Home - Self-Care Reason For Visit: SEIZURE Discharge Diagnosis: Exacerbation of seizure disorder, transient postictal encephalopathy Activity: Resume your previous activity Non-emergency contact: Primary Care Provider and Neurologist Call non-emergency contact if: you have any medication questions and your symptoms worsen Follow-up/Referrals: [place]ia Vasquez DO [Primary Care Provider] - Diet: Regular and Heart Healthy Addtl Attending Provider Instructions: Lamictal dosage has been increased to 150 mg twice daily. Alcohol intake cessation is recommended Pending Studies at Discharge: No Stand-Alone Forms: My [employer], Smoking Cessation Medications and DC Order Prescriptions: New lamotrigine [Lamictal] 150 mg tablet 150 mg PO BID Qty: 60 0RF Continued pantoprazole 40 mg tablet,delayed release (DR/EC) 40 mg PO DAILY Qty: 30 3RF thiamine HCl (vitamin B1) 100 mg tablet 100 mg PO QAM Qty: 30 4RF folic acid 1 mg tablet 2 mg PO QAM Qty: 180 1RF levothyroxine [Synthroid] 25 mcg tablet 25 mcg PO DAILYBB Qty: 90 1RF cyanocobalamin (vitamin B-12) [Vitamin B-12] 1,000 mcg tablet 1,000 mcg PO DAILY Qty: 30 5RF Rx Instructions: purchase [id number] sertraline 25 mg tablet 25 mg PO DAILY Qty: 90 2RF Combivent Respimat 20-100 mcg/actuation mist 1 puff inhalation QID PRN (Reason: Shortness Of Breath) Rx Instructions: PER SPOUSE "USES ONLY WHEN NEEDED". space evenly during waking hours magnesium oxide 400 mg (241.3 mg magnesium) Tablet 400 mg PO HS Qty: 30 0RF Rx Instructions: OTC Discontinued lamotrigine [Lamictal] 100 mg tablet 100 mg PO BID Qty: 60 6RF Discharge Orders: Discharge Order (Routine); Ordered 03/14/23 Ordered By: Eder Robles Admission Data Admit Date/Time: 03/12/23 23:08 Attending Provider: Eder Robles Admit Provider: Jennifer Cordon Primary Care Provider: [place]ia Vasquez Other Interventions: Discharge Summary Assessment (RN) Last Done: 03/14/23 10:54 Coding Level of Care Code 98646 INP/OBS DISCH >30 MIN Diagnoses Seizure R56.9 Post-ictal confusion F05 Alcohol abuse F10.10 Hypothyroidism E03.9 GERD without esophagitis K21.9 COPD (chronic obstructive pulmonary disease) J44.9
[2023-03-15 12:32] LABS: Marijuana Quant, GCMS Urine 1641 ng/mL (<5)
== END 2023-03-14 12:08 | disposition home or self-care (01) | DRG 101 ==
LOC: ED 18:52 → 2N 23:08 → SUATTDRO 23:08 → 2N 03-13 00:01

== ENCOUNTER 2023-12-16 11:49 | Inpatient (IN) ==
--- NOTE | 2023-12-16 12:29 | Emergency Department Note ---
Impression & Plan Acute pancreatitis, Abdominal pain, Nausea & vomiting, Alcohol use ED Provider Note NAME: RIMA COLLAZO AGE: 63 SEX: M : 1960 ARRIVES VIA: Ambulance INFORMANT: Patient, ED PROVIDER(S): Deng Lopez MD CHIEF COMPLAINT: Abdominal pain, nausea vomiting MEDICAL DECISION MAKING: Patient presented due to concern for abdominal pain. IV was established and blood work was obtained. Patient was ordered IV fluids IV Zofran. Patient's blood work showed a normal white count hemoglobin and platelet count kidney function is unremarkable with normal LFTs with exception of mild hyperbilirubinemia at 1.2. Other LFTs unremarkable with negative troponin. TSH normal patient's lipase is 2500 likely consistent with pancreatitis given his epigastric pain and known history and alcohol use. Patient was ordered IV morphine. I did speak the on-call hospitalist to group Dr. Hahn and the patient was admitted to the medicine service. Discussion w/ other healthcare providers: Dr. Hahn inpatient medicine service Prior /Outside records reviewed: I reviewed a primary care visit from September 05, 2023 with Meenakshi chavarria. Known history of alcohol abuse anxiety acute on chronic pancreatitis mesial temporal sclerosis seizure disorder patient is on Lamictal 150 mg twice daily following with neurology. I did review an outpatient neurology visit note from December [address] [facility] patient with known history of seizure disorder and alcohol abuse. With the level was noted to be 11.1 on November 29. Reportedly had a seizure on December 07. Patient with known history of poor sleep drinks vodka daily not optimal hydration. Patient reportedly also taking B12 folate thiamine and potassium. Differential diagnosis: Appendicitis, testicular torsion, UTI, diverticulitis, obstruction, renal colic, mesenteric adenitis, enteririts, PUD, pancreatitis, biliary pathology, hernia, volvulus, constipation, as well as other pathologies were considered. Diagnostics, as interpreted by me: ECG: None Cardiac monitoring: An order was placed for continuous cardiac monitoring. The monitor shows a rate of 85 with sinus rhythm. Patient was placed on pulse oximetry Medical decision rules: None Imaging studies: I informally interpreted the patient's chest x-ray does not show obvious pneumonia or pneumothorax with formal report to follow. HPI: Patient presents due to concern for diffuse abdominal pain most prominent in the epigastrium that began last evening with 2 episodes of vomiting. Patient denies any chest pains or shortness of breath. The patient does admit to drinking vodka yesterday but believes that he only had 1 drink. Patient states that his 1 drink likely had 2 shots. Patient does smoke tobacco and uses medical marijuana. Patient states that the pain has been constant and described as dull. It is nonradiating. He has not take anything for it and nothing seems to make it any better. Patient denies any falls or trauma. He does have a known history of seizure disorder and states that he was able to take his medications yesterday but did not take anything this morning. Patient denies any blood in the vomit or stool no dysuria or hematuria. Patient does have a history of pancreatitis and this does feel similar. PAST MEDICAL HISTORY: See Below PAST SURGICAL HISTORY: See Below SOCIAL HISTORY: See Below HOME MEDICATIONS: See Below ALLERGIES: See Below VITALS: See Below PHYSICAL EXAMINATION: GENERAL: NAD, non-toxic. EYE EXAM: Normal conjunctiva. PERRL, no anisocoria and EOM's grossly intact w/o pain. OROPHARYNX: Moist mucus membranes, grossly normal dentition. NECK: Trachea midline, no stridor. LUNGS: Clear to auscultation. Normal chest wall mechanics. HEART: NSR, no MRG. ABDOMEN: Abdomen soft, diffuse abdominal pain most prominent in the epigastrium, no masses, no rebound or guarding. BACK: No CVA TTP. SKIN: No rashes and no bruising. UPPER EXTREMITIES: Upper extremities are grossly normal. LOWER EXTREMITIES: Grossly normal, no edema. NEURO EXAM: A&O x3, cranial nerves II-XII grossly intact, normal speech, moves all 4 extremities. Past Med/Surg History Medical History Hypothyroidism COPD (chronic obstructive pulmonary disease) controlled w/ inhaler use GERD without esophagitis Calculus of pancreatic duct Pancreatic duct obstruction Anxiety Hx of pleural effusion Marijuana use Hx of aspiration pneumonitis 07/2022- treated with abx Poor historian Hx of seizure disorder Last seizure 08/2021- has not had one since started lamictal (did confirmed 10/27/22 with patient's caregiver that he is taking Lamictal daily) Other symptoms and signs involving cognitive functions and awareness Mesial temporal sclerosis Stable per 10/18/22 neuro note Esophageal dysphagia Improved per 08/2022 PCP records Cricopharyngeal dysphagia Per 08/2022 records- stable; video swallow with cricopharyngeal bar; s/p EGD 07/27/22 with esophageal stenosis which was like cause of the bar seen- s/p dilation- dysphagia improved/resolved Tobacco dependence Alcohol abuse Degenerative disc disease History of pancreatitis (~02/2020) S/p ERCP on 07/16/22 with large gallbladder stone removed. Biliary sphincterectomy and stent placed to be removed in 3 months. Vertebral artery stenosis Per 07/2020 Neck CTA- severe stenosis of the left vertebral artery of the C4 level due to osteophytes Thrombocytopenia Depression Macrocytic anemia Cervical spondylosis Hypertension Surgical History History of esophagogastroduodenoscopy (EGD) 10/19/20 [facility] S/P epidural steroid injection History of colonoscopy Status post tooth extraction Hx of neck surgery (05/2018) cervical fusion (C2-C3?) Full ROM Family History Aunt Parkinson disease Cerebral aneurysm Mother Cerebral aneurysm Depression Anemia Uncle Cerebral aneurysm Other No family history of adverse response to anesthesia Denies family history of Ovarian cancer Prostate cancer Myocardial infarction Breast cancer Lung cancer Colorectal cancer Social History Smoking Status: Current every day smoker Tobacco Type: Cigarettes Age Started Using Tobacco: 17; packs per day: 1; Cigarettes Per Day: 20 per day- advised; Second Hand Exposure: Yes; Do You Dip or Chew Tobacco: No; Tobacco Cessation Education Requested by Patient: No Hx Alcohol Use: Yes Alcohol type: hard liquor Alcohol Intake Frequency Comment: fifth of vodka per week Hx Substance Use: Yes Prescribed Medications: Marijuana Last Used Substance: Days (ago) Last Used Substance Other:: Last night around 1999 Substance Use Type Other:: Daily Preferred Language: Tuvaluan Communication Ability: Effective Visual Impairment: No Limitations Hearing Ability: Normal 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 Beliefs That Will Affect Care: None marital status: Single Current Living Situation: Spouse Current Living Situation Comment: lives in 2 story home with Charmaine ordaz current occupational status: disabled Other Information That Helps Us Care for You: No Feels Safe at Home: Yes Safety Concerns: Feels Safe At This Time Childhood Exposure to Second-Hand Smoke: Yes Diet: regular Diet Comment: regular caffeine: No during the past year weight has: remained stable Dental Care, Regularly: No Physical Activity Frequency: Does not Exercise Seatbelt Use: always Sunscreen Use: No Assistive Devices: None Allergies Allergies Allergy/AdvReac Type Severity Reaction Status Date / Time No Known Allergies Allergy Verified 12/11/23 10:30 Home Meds Previous Rx's Medication Instructions Recorded cyanocobalamin (vitamin B-12) 1,000 mcg PO DAILY #30 tabs 08/29/22 1,000 mcg tablet (Vitamin B-12) magnesium oxide 400 mg (241.3 mg 400 mg PO HS #30 tabs 12/03/22 magnesium) tablet levothyroxine 25 mcg tablet 25 mcg PO DAILYBB #90 tabs 07/09/23 (Synthroid) thiamine HCl (vitamin B1) 100 mg 100 mg PO QAM #30 tabs 07/11/23 tablet folic acid 1 mg tablet 2 mg (2 x 1 mg) PO QAM #180 tabs 08/30/23 pantoprazole 40 mg tablet,delayed 40 mg PO DAILY #30 tabs 09/24/23 release ipratropium 20 mcg-albuterol 100 1 puff inhalation QID PRN 10/23/23 mcg/actuation mist for inhalation Shortness Of Breath #4 grams (Combivent Respimat) lamotrigine 150 mg tablet 150 mg PO BID #60 tabs 11/20/23 (Lamictal) Results & Data (ED) Vital Signs Vital Signs - 24 hr 12/16/23 11:49 12/16/23 12:23 12/16/23 12:29 Temperature 36.8 C Temperature Source Oral Pulse Rate 77 78 78 Pulse Rate from SpO2 Sensor Pulse Rhythm Regular Respiratory Rate 12 12 Respiratory Effort / Characteristics Non-Labored Respiratory Depth Normal Respiratory Pattern Regular Blood Pressure 146/83 H Blood Pressure Mean 104 Pulse Oximetry 99 99 Oxygen Delivery Method Room Air Room Air Sepsis Recent Fever Within 48 Hours No Sepsis New/Unexplained Change in Mental Status N/A Sepsis Action Taken by Nursing No Action Required 12/16/23 12:30 12/16/23 13:00 12/16/23 13:30 Temperature Temperature Source Pulse Rate 79 84 82 Pulse Rate from SpO2 Sensor 81 85 82 Pulse Rhythm Respiratory Rate 15 19 18 Respiratory Effort / Characteristics Respiratory Depth Respiratory Pattern Blood Pressure 156/92 H 157/84 H 155/97 H Blood Pressure Mean 113 108 116 Pulse Oximetry 99 99 99 Oxygen Delivery Method Sepsis Recent Fever Within 48 Hours Sepsis New/Unexplained Change in Mental Status Sepsis Action Taken by Nursing 12/16/23 13:30 12/16/23 14:00 12/16/23 14:30 Temperature Temperature Source Pulse Rate 81 80 Pulse Rate from SpO2 Sensor 83 79 Pulse Rhythm Respiratory Rate 20 19 Respiratory Effort / Characteristics Respiratory Depth Respiratory Pattern Blood Pressure 155/97 H 150/81 H 158/86 H Blood Pressure Mean 109 104 110 Pulse Oximetry 99 97 Oxygen Delivery Method Sepsis Recent Fever Within 48 Hours Sepsis New/Unexplained Change in Mental Status Sepsis Action Taken by Retirement Medications Current Medication List: was personally reviewed by me Laboratory Data Attestation: I reviewed the patient's lab results. 12/16/23 12:05 12/16/23 12:05 Lab Results 12/16/23 Range/Units 12:05 WBC 10.44 (4.8-10.8) K/ul RBC 4.36 L (4.70-6.10) M/uL Hgb 15.2 (14.0-18.0) g/dl Hct 42.9 (42.0-52.0) % MCV 98.4 (80.0-100.0) fL MCH 34.9 H (25.0-34.0) pg MCHC 35.4 (32.0-36.0) g/dL RDW Std Deviation 46.1 (36.4-46.3) fL RDW Coeff of Brianda 12.9 (11.5-14.5) % Plt Count 246 (130-400) K/uL MPV 10.6 (9.4-12.4) fL Immature Gran % (Auto) 0.4 % Neut % (Auto) 68.7 % Lymph % (Auto) 16.6 % Routt % (Auto) 12.6 % Eos % (Auto) 1.2 % Baso % (Auto) 0.5 % Neut # (Auto) 7.17 H (1.40-6.50) K/uL Lymph # (Auto) 1.73 (1.20-3.40) K/uL Routt # (Auto) 1.32 H (0.11-0.59) K/uL Eos # (Auto) 0.13 (0.00-0.50) K/uL Baso # (Auto) 0.05 (0.00-0.20) K/uL Immature Gran # (Auto) 0.04 (0.01-0.20) K/uL Sodium 137 (136-145) mmol/L Potassium 4.5 (3.5-5.1) mmol/L Chloride 102 (98-107) mmol/L Carbon Dioxide 29 (21-32) mmol/L Anion Gap 6 (3-11) BUN 13 (6-23) mg/dl Creatinine 0.65 (0.6-1.4) mg/dl Est Cr Clr Drug Dosing 105.6 ml/min Est GFR ( Amer) 120.0 ml/min Est GFR (Non-Af Amer) 103.5 ml/min BUN/Creatinine Ratio 20.0 (10-20) Glucose 98 (70-99(Fasting)) mg/dl Calcium 9.9 (8.6-10.3) mg/dl Magnesium 1.9 (1.7-2.4) mg/dl Total Bilirubin 1.2 H (0.2-1.0) mg/dl AST 24 (13-39) U/L ALT 20 (7-52) U/L Alkaline Phosphatase 78 (34-104) U/L Troponin I High Sens 4.1 (0-20) pg/ml Total Protein 7.7 (6.0-8.3) gm/dl Albumin 4.4 (3.4-5.0) gm/dl Globulin 3.3 (2.5-4.0) gm/dl Albumin/Globulin Ratio 1.3 (0.9-2) Lipase 2575 H (11-82) U/L TSH 2.818 (0.300-4.500) uIu/ml Administered Medications Enoxaparin Sodium (Enoxaparin Inj 40 Mg/0.4 Ml Syr) 40 mg SQ Q24H MAKSIM Stop: 01/15/24 17:59 Last Admin: 12/16/23 18:18 Dose: 40 mg Documented By: LND Thiamine HCl 100 mg/ Syringe 10 mls @ 2 mls/min IV QAM MAKSIM Stop: 01/15/24 14:59 Last Admin: 12/16/23 15:15 Dose: 2 mls/min Documented By: LCD Lactated Ringer's (Lr) 1,000 mls @ 150 mls/hr IV .Q6H40M MAKSIM Stop: 01/15/24 14:59 Last Admin: 12/16/23 17:27 Dose: 150 mls/hr Documented By: DEVIN Morphine Sulfate (Morphine Sulfate 4 Mg/Ml 1 Ml Carp\Vial) 4 mg IV Q4H PRN PRN Reason: Severe Pain (7,8,9,10) on NRS Stop: 12/30/23 14:45 Last Admin: 12/16/23 18:18 Dose: 4 mg Documented By: DEVIN Discontinued Medications Sodium Chloride (Nss) 1,000 mls @ 999 mls/hr IV .Q1H1M MAKSIM Stop: 12/16/23 13:30 Last Infusion: 12/16/23 13:45 Dose: Infused Documented By: Admin: 12/16/23 12:40 Dose: 999 mls/hr Documented By: JESSICA Multivitamins 10 ml/ Thiamine HCl 100 mg/ Folic Acid 1 mg/Sodium Chloride 1,011.2 mls @ 500 mls/hr IV .Q2H2M ONE Stop: 12/16/23 17:01 Last Infusion: 12/16/23 17:30 Dose: Infused Documented By: Admin: 12/16/23 15:18 Dose: 500 mls/hr Documented By: TALIB Lamotrigine (Lamotrigine 100 Mg Tab) 150 mg PO ONE STA; Protocol Stop: 12/16/23 14:46 Last Admin: 12/16/23 15:13 Dose: 150 mg Documented By: TALIB Morphine Sulfate (Morphine Sulfate 4 Mg/Ml 1 Ml Carp\Vial) 4 mg IV NOW STA Stop: 12/16/23 13:55 Last Admin: 12/16/23 14:16 Dose: 4 mg Documented By: CHRISTIANE Ondansetron HCl (Ondansetron Inj 2 Mg/Ml 2 Ml Vial) 4 mg IV NOW STA Stop: 12/16/23 12:30 Last Admin: 12/16/23 12:40 Dose: 4 mg Documented By: JESSICA Imaging Data Radiologist's Impression: Chest X-Ray 12/16/23 12:29 XR chest 1V portable CLINICAL HISTORY: weakness TECHNIQUE: Single frontal radiograph of the chest was obtained. Comparison: Comparison is made to chest radiograph 03/12/2023 FINDINGS: No lines and tubes are seen. Calcified aortic knob is seen. The lungs are clear. No evidence of pleural effusion or pneumothorax. IMPRESSION: No acute chest disease. ACT 112: Negative or not required by law. Electronically signed by: Florencio Beckham M.D. 12/16/2023 1:20 PM Discharge Plan Visit Data Chief Complaint: Abdominal Pain Stated Complaint: Abdominal Pain ED Provider: Deng Lopez Discharge Problem: Acute pancreatitis, Abdominal pain, Nausea & vomiting, Alcohol use Patient Disposition: Admitted As Inpatient Discharge Instructions Interventions: ED Discharge Assessment Last Done: 12/16/23 16:17 Discharge Problem: Acute pancreatitis Qualifiers: Pancreatitis type: alcohol induced Acute pancreatitis complication: unspecified Qualified Code(s): K85.20 - Alcohol induced acute pancreatitis without necrosis or infection Abdominal pain Qualifiers: Abdominal location: epigastric Qualified Code(s): R10.13 - Epigastric pain Nausea & vomiting Qualifiers: Vomiting type: unspecified Qualified Code(s): R11.2 - Nausea with vomiting, unspecified
[2023-12-16] MEDS: ONDANSETRON INJ 2 MG/ML 2 ML VIAL IV STA (12:40)
[2023-12-16] MEDS: SODIUM CHLORIDE 0.9% 1,000 ML IV SCH (12:40)
[2023-12-16 12:43] LABS: Basophils # (auto) 0.05 K/uL (0.00-0.20); Basophils % (auto) 0.5 %; Eosinophils # (auto) 0.13 K/uL (0.00-0.50); Eosinophils % (auto) 1.2 %; Hematocrit (blood only) 42.9 % (42.0-52.0); Hemoglobin 15.2 g/dl (14.0-18.0); Immature Granulocytes # (auto) 0.04 K/uL (0.01-0.20); Immature Granulocytes % (auto) 0.4 %; Lymphocytes # (auto) 1.73 K/uL (1.20-3.40); Lymphocytes % (auto) 16.6 %; Mean Corpuscular Hemoglobin 34.9 pg (25.0-34.0); Mean Corpuscular Hgb Conc 35.4 g/dL (32.0-36.0); Mean Corpuscular Volume 98.4 fL (80.0-100.0); Mean Platelet Volume 10.6 fL (9.4-12.4); Monocytes # (auto) 1.32 K/uL (0.11-0.59); Monocytes % (auto) 12.6 %; Neutrophils # (auto) 7.17 K/uL (1.40-6.50); Neutrophils % (auto) 68.7 %; Platelet Count 246 K/uL (130-400); RDW Coefficient of Variation 12.9 % (11.5-14.5); RDW Standard Deviation 46.1 fL (36.4-46.3); Red Blood Count 4.36 M/uL (4.70-6.10); White Blood Count 10.44 K/ul (4.8-10.8)
[2023-12-16 12:50] LABS: Albumin Globulin Ratio 1.3 (0.9-2); Albumin Level 4.4 gm/dl (3.4-5.0); Bilirubin,Total 1.2 mg/dl (0.2-1.0); Calcium 9.9 mg/dl (8.6-10.3); Creatinine Clr Calc Pharmacy 105.6 ml/min; Est GFR (Non-African American) 103.5 ml/min; Globulin 3.3 gm/dl (2.5-4.0); Magnesium 1.9 mg/dl (1.7-2.4); Potassium 4.5 mmol/L (3.5-5.1); Total Protein 7.7 gm/dl (6.0-8.3)
[2023-12-16 12:56] LABS: Troponin I High Sensitivity 4.1 pg/ml (0-20)
[2023-12-16 13:05] LABS: Thyroid Stimulating Hormone 2.818 uIu/ml (0.300-4.500)
--- NOTE | 2023-12-16 13:23 | XRay Report ---
XR chest 1V portable CLINICAL HISTORY: weakness TECHNIQUE: Single frontal radiograph of the chest was obtained. Comparison: Comparison is made to chest radiograph 03/12/2023 FINDINGS: No lines and tubes are seen. Calcified aortic knob is seen. The lungs are clear. No evidence of pleur al effusion or pneumothorax. IMPRESSION: No acute chest disease. ACT 112: Negative or not required by law. Electronically signed by: Florencio Beckham M.D. 12/16/2023 1:20 PM
--- NOTE | 2023-12-16 14:15 | History & Physical Report ---
Date of Service December 16, 2023 Assessment & Plan (1) Acute pancreatitis: Plan: Acute on chronic pancreatitis Due to alcohol use No leukocytosis No transaminitis to suggest choledocho Leukocytosis 2575 Continue LR 150 cc/h N.p.o. Zofran, morphine as needed for pain control Alcohol withdrawal risk management as below (2) Seizure disorder: Plan: Last seizure in March. Had multiple seizures of unknown cause, patient does not think these were alcohol associated but does have a history of alcohol abuse Continue lamotrigine Seizure precautions, Ativan on-call if needed (3) Alcohol use: Plan: Last drink 12/14 in the evening. Patient reports he drinks around 3 medium size drinks of vodka per day. The handle of vodka last him approximately a week. 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 BP 1 5597. Is elevated in the setting of pain with pancreatitis. Will trend for now. (6) COPD (chronic obstructive pulmonary disease): Plan: Continue inhalers Plan DVT prophylaxis: Lovenox Disposition: Medical telemetry due to history of alcohol use with alcohol withdrawal and past seizures Diet: N.p.o. CODE STATUS: Full code History of Present Illness Primary Care Provider: [place] Vasquez DO 63-year-old male Allergies Allergy/AdvReac Type Severity Reaction Status Date / Time No Known Allergies Allergy Verified 12/11/23 10:30 Home Medications Medication Instructions Recorded Confirmed Type cyanocobalamin (vitamin B-12) 1,000 mcg PO DAILY #30 tabs 08/29/22 12/11/23 Rx 1,000 mcg tablet (Vitamin B-12) magnesium oxide 400 mg (241.3 mg 400 mg PO HS #30 tabs 12/03/22 12/11/23 Rx magnesium) tablet levothyroxine 25 mcg tablet 25 mcg PO DAILYBB #90 tabs 07/09/23 12/11/23 Rx (Synthroid) thiamine HCl (vitamin B1) 100 mg 100 mg PO QAM #30 tabs 07/11/23 12/11/23 Rx tablet folic acid 1 mg tablet 2 mg (2 x 1 mg) PO QAM #180 tabs 08/30/23 12/11/23 Rx pantoprazole 40 mg tablet,delayed 40 mg PO DAILY #30 tabs 09/24/23 12/11/23 Rx release ipratropium 20 mcg-albuterol 100 1 puff inhalation QID PRN 10/23/23 12/11/23 Rx mcg/actuation mist for inhalation Shortness Of Breath #4 grams (Combivent Respimat) lamotrigine 150 mg tablet 150 mg PO BID #60 tabs 11/20/23 12/11/23 Rx (Lamictal) potassium 1 tab PO UD 12/16/23 History Past Med/Surg History Medical History (Updated 12/16/23 @ 14:11 by Ravinder Hahn MD) Hypothyroidism COPD (chronic obstructive pulmonary disease) controlled w/ inhaler use GERD without esophagitis Calculus of pancreatic duct Pancreatic duct obstruction Anxiety Hx of pleural effusion Marijuana use Hx of aspiration pneumonitis 07/2022- treated with abx Poor historian Hx of seizure disorder Last seizure 08/2021- has not had one since started lamictal (did confirmed 10/27/22 with patient's caregiver that he is taking Lamictal daily) Other symptoms and signs involving cognitive functions and awareness Mesial temporal sclerosis Stable per 10/18/22 neuro note Esophageal dysphagia Improved per 08/2022 PCP records Cricopharyngeal dysphagia Per 08/2022 records- stable; video swallow with cricopharyngeal bar; s/p EGD 1 09/27/21 with esophageal stenosis which was like cause of the bar seen- s/p dilation- dysphagia improved/resolved Tobacco dependence Alcohol abuse Degenerative disc disease History of pancreatitis (~02/2020) S/p ERCP on 07/16/22 with large gallbladder stone removed. Biliary sphincterectomy and stent placed to be removed in 3 months. Vertebral artery stenosis Per 07/2020 Neck CTA- severe stenosis of the left vertebral artery of the C4 level due to osteophytes Thrombocytopenia Depression Macrocytic anemia Cervical spondylosis Hypertension Surgical History History of esophagogastroduodenoscopy (EGD) 10/19/20 [facility] S/P epidural steroid injection History of colonoscopy Status post tooth extraction Hx of neck surgery (05/2018) cervical fusion (C2-C3?) Full ROM Family History Aunt Parkinson disease Cerebral aneurysm Mother Cerebral aneurysm Depression Anemia Uncle Cerebral aneurysm Other No family history of adverse response to anesthesia Denies family history of Ovarian cancer Prostate cancer Myocardial infarction Breast cancer Lung cancer Colorectal cancer Social History Smoking Status: Never smoker Tobacco Type: Cigarettes Age Started Using Tobacco: 17; packs per day: 1; Cigarettes Per Day: 20 per day- advised; Second Hand Exposure: Yes; Do You Dip or Chew Tobacco: No; Hx Alcohol Use: Yes Alcohol type: other Alcohol Intake Frequency Comment: fifth of vodka per week Hx Substance Use: Yes Prescribed Medications: Marijuana Last Used Substance: Days (ago) Substance Use Type Other:: Daily Preferred Language: Chinese Communication Ability: Effective Visual Impairment: No Limitations Hearing Ability: Normal 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 NAD. Cooperative. HEENT: Atraumatic, normocephalic. Vision and hearing grossly intact Pulm: CTAB A&P. -wheezes, -rales, -rhonchi. Symmetrical chest rise. No increased work of breathing. No respiratory distress. Cardiac: RRR, -mrg. Radial pulses intact and symmetrical. Abdominal: Epigastric tenderness to palpation. No rebound/guarding Extremities: Warm, dry. Results & Data Results & Data Vital Signs (Past 12 Hours) Vital Signs Temp Pulse Resp BP Pulse Ox O2 Del Method 12/16/23 13:30 155/97 H 12/16/23 13:30 82 18 155/97 H 99 12/16/23 13:00 84 19 157/84 H 99 12/16/23 12:30 79 15 156/92 H 99 12/16/23 12:29 78 12 99 Room Air 12/16/23 12:23 78 12/16/23 11:49 36.8 C 77 12 146/83 H 99 Room Air PG Care Time/CCT Total # of Minutes Spent Total Time Spent with Patient: Total time spent is greater than 50% in coordination of care (as documented) at patient's floor/unit and/or counseling patient: Coding Level of Care Code 91701 INT INP/OBS CARE 3/75MIN Diagnoses Acute pancreatitis K85.20 Acute pancreatitis complication: unspecified Pancreatitis type: alcohol induced Seizure disorder G40.909 Alcohol use Z78.9 Hypothyroidism E03.9 Essential hypertension I10 Hypertension type: essential hypertension COPD (chronic obstructive pulmonary disease) J44.9 (1) Acute pancreatitis Acute pancreatitis complication: unspecified Pancreatitis type: alcohol induced Qualified Code(s): K85.20 - Alcohol induced acute pancreatitis without necrosis or infection (5) Hypertension Hypertension type: essential hypertension Qualified Code(s): I10 - Essential (primary) hypertension
[2023-12-16] MEDS: MoRPHine SULFATE 4 MG/ML 1 ML CARP\\VIAL IV STA (14:16)
[2023-12-16] MEDS ORDERED: LORazepam 1 MG in SYRINGE 0.5 ML IV PRN (14:43)
[2023-12-16] MEDS ORDERED: LORazepam 2 MG in SYRINGE 1 ML IV PRN (14:43)
[2023-12-16] MEDS ORDERED: MoRPHine SULFATE 2 MG/ML CARP IV PRN (14:46)
[2023-12-16] MEDS: lamoTRIgine 100 MG TAB PO STA (15:13)
[2023-12-16] MEDS: THIAMINE HCL 100 MG in SYRINGE 9 ML IV SCH (15:15)
[2023-12-16] MEDS: MULTI-VITAMIN INFUSION 10 ML, THIAMINE HCL 100 MG, FOLIC ACID 1 MG in SODIUM CHLORIDE 0... IV ONE (15:18)
[2023-12-16 16:34] LABS: Appearance Urine Clear (Clear); Bacteria Urine Automated None Seen (None Seen); Bilirubin Urine 1+ (Negative); Blood Urine Negative (Negative); Cast Urine Automated 0-2 /lpf (0-2); Color Urine Dark Yellow; Epithelial Cell Urine Auto 0-2 /hpf (0-2); Glucose Urine UA Negative (Negative); Ketones Urine 3+ (Negative); Leukocyte Esterase Urine Trace (Negative); Nitrite Urine Negative (Negative); Protein Urine Trace (Negative); RBC Urine Automated 0-2 /hpf (0-2); Specific Gravity Urine 1.025 (1.000-1.030); Urobilinogen Urine Negative (Negative); WBC Urine Automated 0-5 /hpf (0-5); pH Urine 7.5 (4.5-7.5)
[2023-12-16] MEDS: LACTATED RINGER'S 1,000 ML IV SCH (17:27)
[2023-12-16] MEDS: MoRPHine SULFATE 4 MG/ML 1 ML CARP\\VIAL IV PRN ×2 (18:18→22:08)
[2023-12-16] MEDS: ENOXAPARIN INJ 40 MG/0.4 ML SYR SQ SCH (18:18)
[2023-12-16] MEDS: lamoTRIgine 100 MG TAB PO SCH (21:00)
[2023-12-16] MEDS: ACETAMINOPHEN 1,000 MG/100 ML VIAL IV PRN (21:43)
[2023-12-17] MEDS: LEVOTHYROXINE SODIUM 25 MCG TABLET PO SCH (05:37)
[2023-12-17] MEDS: FOLIC ACID 1 MG in SYRINGE 9.8 ML IV SCH (07:23)
[2023-12-17] MEDS: NICOTINE 14 MG/24 HR PATCH TD SCH (07:31)
[2023-12-17 08:12] LABS: Basophils # (auto) 0.05 K/uL (0.00-0.20); Basophils % (auto) 0.5 %; Hematocrit (blood only) 37.9 % (42.0-52.0); Immature Granulocytes # (auto) 0.04 K/uL (0.01-0.20); Immature Granulocytes % (auto) 0.4 %; Lymphocytes # (auto) 2.17 K/uL (1.20-3.40); Lymphocytes % (auto) 21.6 %; Mean Corpuscular Hemoglobin 34.4 pg (25.0-34.0); Mean Corpuscular Hgb Conc 34.3 g/dL (32.0-36.0); Mean Corpuscular Volume 100.3 fL (80.0-100.0); Mean Platelet Volume 10.9 fL (9.4-12.4); Monocytes # (auto) 1.21 K/uL (0.11-0.59); Monocytes % (auto) 12.1 %; Neutrophils # (auto) 6.47 K/uL (1.40-6.50); Neutrophils % (auto) 64.4 %; Platelet Count 205 K/uL (130-400); RDW Standard Deviation 48.3 fL (36.4-46.3); Red Blood Count 3.78 M/uL (4.70-6.10); White Blood Count 10.04 K/ul (4.8-10.8)
--- NOTE | 2023-12-17 08:29 | Electrocardiogram Report ---
Test Reason : Blood Pressure : / mmHG Vent. Rate : 075 BPM Atrial Rate : 075 BPM P-R Int : 146 ms QRS Dur : 088 ms QT Int : 396 ms P-R-T Axes : 081 074 073 degrees QTc Int : 442 ms Normal sinus rhythm Normal ECG When compared with ECG of 12-MAR-2023 19:00, No significant change was found Confirmed by Santos Chinchilla ([id number]) on 12/17/2023 8:29:03 AM Referred By: REFERRED SELF Confirmed By:Irwin Chinchilla
[2023-12-17 08:42] LABS: Albumin Globulin Ratio 1.2 (0.9-2); Albumin Level 3.3 gm/dl (3.4-5.0); BUN Creatinine Ratio 19.1 (10-20); Bilirubin,Total 1.5 mg/dl (0.2-1.0); Calcium 8.4 mg/dl (8.6-10.3); Creatinine Clr Calc Pharmacy 141.5 ml/min; Est GFR (African American) 137.1 ml/min; Est GFR (Non-African American) 118.3 ml/min; Globulin 2.7 gm/dl (2.5-4.0); Potassium 3.7 mmol/L (3.5-5.1)
[2023-12-17] MEDS: THIAMINE HCL 100 MG TAB PO SCH (09:04)
[2023-12-17] MEDS: FOLIC ACID 1 MG TAB PO SCH (09:04)
[2023-12-17] MEDS: PANTOprazole 40 MG in SYRINGE 0 ML IV SCH (10:18)
[2023-12-17] MEDS: ONDANSETRON INJ 2 MG/ML 2 ML VIAL IV STA (10:18)
[2023-12-17] MEDS ORDERED: ONDANSETRON INJ 2 MG/ML 2 ML VIAL IV PRN (11:06)
--- NOTE | 2023-12-17 11:44 | Hospitalist Progress Note ---
Date of Service December 17, 2023 Assessment & Plan (1) Acute pancreatitis: Plan: Due to alcohol intake. Continue IV fluids and antiemetics. Clear liquids will be allowed if tolerated. Abdomen CT scan is pending. Pain control measures. (2) Seizure disorder: Plan: Stable. Continue lamotrigine. IV Ativan as needed. (3) Alcohol use: Plan: Alcohol cessation highly recommended. AWSS protocol ordered if needed. Alcohol level negative on admission (4) Hypothyroidism: Plan: Stable. Continue Synthroid (5) Hypertension: Plan: Blood pressure elevated on admission due to abdominal pain. He takes no medications at home. Will follow. (6) COPD (chronic obstructive pulmonary disease): Plan: Stable. Continue inhalers Plan Anticipate eventual discharge to home within the next couple of days Admission and Anticipated Discharge Date Admission Date: December 16, 2023 Subjective Alert and oriented. He is nauseated and requiring Zofran IV. He has epigastric tenderness. Abdomen CT scan is pending. IV fluids have been tapered down. Lipase was 2575 on admission and repeat levels are pending. Will continue IV fluids for now and pain control measures Review of Systems 2 Review of Systems: Constitutional-no fever or chills ENT-no blurred vision, no double vision, no epistaxis, no sore throat Respiratory-no cough, no wheezing, no shortness of breath Cardiac-no palpitations, no chest pain, no syncope GI-nauseated but no vomiting. No appetite. Epigastric discomfort. No diarrhea, melena, hematochezia -no urinary retention, no urinary incontinence, no dysuria, no hematuria Musculoskeletal-no joint pain, no muscle tenderness Skin-no bruising, no rashes, no pruritus Neuro-no isolated weakness, no paresthesia, no weakness Psych-no depression, no anxiety Physical Exam 2 Physical Exam: General-alert and oriented x3, no fever, no chills HEENT-head atraumatic and normocephalic, pupils equal and reactive to light, extraocular muscles intact Neck-no lymphadenopathy or thyromegaly, trachea midline Chest-clear to auscultation. No rales, wheezing or rhonchi Cardiac-regular rate and rhythm, normal S1 and S2 Abdomen-normal bowel sounds, no hepatosplenomegaly. Tenderness in the epigastric region. No rebound or guarding. No masses Extremities-no cyanosis, clubbing, or edema Neuro-cranial nerves II through XII intact, motor and sensory function within normal limits, strength symmetrical, no focal deficits Psych-normal affect, normal mood Results & Data Results & Data Vital Signs (Past 12 Hours) Vital Signs Temp Pulse Pulse Pulse Resp BP Pulse Ox 12/17/23 11:05 36.6 C 78 14 136/75 98 12/17/23 07:16 36.3 C L 68 14 149/77 H 99 12/17/23 07:02 68 12/17/23 03:30 37.1 C 83 16 135/72 95 O2 Del Method 12/17/23 11:05 Room Air 12/17/23 07:16 Room Air 12/17/23 07:02 12/17/23 03:30 Room Air Laboratory Results 12/17/23 07:22 12/17/23 06:18 PG Care Time/CCT Total # of Minutes Spent Total Time Spent with Patient: Total time spent is greater than 50% in coordination of care (as documented) at patient's floor/unit and/or counseling patient: Coding Level of Care Code 66474 SUB INP/OBS CARE 3/50MIN Diagnoses Acute pancreatitis K85.20 Acute pancreatitis complication: unspecified Pancreatitis type: alcohol induced Seizure disorder G40.909 Alcohol use Z78.9 Hypothyroidism E03.9 Essential hypertension I10 Hypertension type: essential hypertension COPD (chronic obstructive pulmonary disease) J44.9 (1) Acute pancreatitis Acute pancreatitis complication: unspecified Pancreatitis type: alcohol induced Qualified Code(s): K85.20 - Alcohol induced acute pancreatitis without necrosis or infection (5) Hypertension Hypertension type: essential hypertension Qualified Code(s): I10 - Essential (primary) hypertension
[2023-12-17] MEDS: OPTIRAY 320 100ml IV ONE (11:50)
--- NOTE | 2023-12-17 13:00 | CT Scan Report ---
ABDOMEN AND PELVIS CT WITH IV CONTRAST CT DOSE: 587.11 mGy.cm HISTORY: Acute generalized abdominal pain with reported pancreatitis. acute pancreatitis TECHNIQUE: Multiaxial CT images of the abdomen and pelvis were performed following the IV administrat ion of 94 cc of Optiray, A dose lowering technique was utilized adhering to the principles of ALARA. COMPARISON STUDY: 11/29/2022. FINDINGS: Study is degraded by respiratory motion artifact. Trace pleural effusions with mild depende nt subsegmental bibasilar atelectasis. No free air. Unremarkable spleen, liver and adrenal glands. Pa tency of the hepatic and portal veins. Distended gallbladder with pericholecystic fluid and borderlin e gallbladder wall thickening. Additionally, there is mild wall thickening involving the cystic and c ommon bile ducts. Transverse dimension of the common bile duct is 7.5 mm. No definite choledocholithi asis identified. There is persistent mild dilation of the pancreatic duct measuring up to 5.5 mm. Mil d interstitial peripancreatic edema is redemonstrated with trace fluid within the lesser sac. Pancrea tic calcifications are again seen. No acute peripancreatic fluid collections. There is decreased infl ammation involving the pancreatic tail compared to the prior study. The gland enhances homogeneously. The contrast enhanced kidneys are normal in size and without hydronephrosis. The kidneys enhance symm etrically. A 9 mm complex/hyperdense cyst is again seen in the left kidney on image #122. Additional subcentimeter cortical hypodensities likely represent cysts but are too small for definitive characte rization. No enhancing cortical mass lesion is seen. Atherosclerosis of the aorta without aneurysm or dissection. Subcentimeter retroperitoneal and periportal lymph nodes are likely reactive. Mild circumferential wall thickening of the distal esophagus. Additional wall thickening of the gastr oduodenal junction is likely reactive. No bowel obstruction. Trace ascites. Nonspecific circumferenti al wall thickening of the urinary bladder. Prostatomegaly. Mild gaseous distention of the large bowel . Normal appendix. Tiny fat-filled umbilical hernia. Nonobstructive bowel gas pattern. Right hip join t effusion with mild right-sided iliopsoas bursitis. No acute fracture. IMPRESSION: 1. Mild acute on chronic pancreatitis redemonstrated. No evidence of pancreatic necrosis or acute per ipancreatic fluid collection. 2. Mild gallbladder distention with borderline gallbladder wall thickening. Finding should be correla bisi clinically to exclude acute cholecystitis. 3. There is persistent dilation of the pancreatic duct with borderline dilation of the common bile du ct which demonstrates wall enhancement. Finding should be correlated with laboratory analysis in orde r to exclude infection and/or biliary obstruction with CT occult choledocholithiasis. 4. Trace pleural effusions with trace ascites. 5. No bowel obstruction. ACT 112: Negative or not required by law. The above report was generated using voice recognition software. It may contain grammatical, syntax o r spelling errors. Dictated: 12/17/2023 12:18 PM Transcribed: 12/17/2023 12:40 PM Alessandra [id number] JESSICA_Riki [id number] Electronically signed by: Dewayne Gonzales M.D. 12/17/2023 12:58 PM
[2023-12-17] MEDS: MELATONIN 3 MG TAB PO PRN (21:20)
[2023-12-18 07:19] LABS: Hematocrit (blood only) 35.8 % (42.0-52.0); Hemoglobin 12.7 g/dl (14.0-18.0); Mean Corpuscular Hemoglobin 34.8 pg (25.0-34.0); Mean Corpuscular Hgb Conc 35.5 g/dL (32.0-36.0); Mean Corpuscular Volume 98.1 fL (80.0-100.0); RDW Coefficient of Variation 12.6 % (11.5-14.5); RDW Standard Deviation 45.3 fL (36.4-46.3); Red Blood Count 3.65 M/uL (4.70-6.10); White Blood Count 9.38 K/ul (4.8-10.8)
[2023-12-18 07:20] LABS: Basophils # (auto) 0.02 K/uL (0.00-0.20); Basophils % (auto) 0.2 %; Eosinophils # (auto) 0.21 K/uL (0.00-0.50); Eosinophils % (auto) 2.2 %; Immature Granulocytes # (auto) 0.03 K/uL (0.01-0.20); Immature Granulocytes % (auto) 0.3 %; Lymphocytes # (auto) 1.53 K/uL (1.20-3.40); Lymphocytes % (auto) 16.3 %; Mean Platelet Volume 10.8 fL (9.4-12.4); Monocytes # (auto) 1.25 K/uL (0.11-0.59); Monocytes % (auto) 13.3 %; Neutrophils # (auto) 6.34 K/uL (1.40-6.50); Neutrophils % (auto) 67.7 %; Platelet Count 194 K/uL (130-400)
[2023-12-18 08:38] LABS: Albumin Globulin Ratio 1.2 (0.9-2); Albumin Level 3.3 gm/dl (3.4-5.0); Bilirubin,Total 1.5 mg/dl (0.2-1.0); Calcium 8.6 mg/dl (8.6-10.3); Creatinine Clr Calc Pharmacy 167.1 ml/min; Est GFR (African American) 146.5 ml/min; Est GFR (Non-African American) 126.4 ml/min; Globulin 2.7 gm/dl (2.5-4.0); Potassium 3.2 mmol/L (3.5-5.1)
--- NOTE | 2023-12-18 10:13 | Nuclear Medicine Report ---
NUCLEAR HEPATOBILIARY SCAN 4.8 CLINICAL HISTORY: Right upper quadrant abdominal pain. COMPARISON STUDY: Abdominal CT dated 12/17/2023. TECHNIQUE: Dynamic images of the liver and anterior abdomen were obtained every 5 minutes for a total of 60 minutes following the IV administration of 4.8 mCi of technetium 99m Mebrofenin. The gallblad juanita is not visualized at 60 minutes. 2 mg of IV morphine was then administered with additional imagin g every 5 minutes for an additional 30 minutes. FINDINGS: The hepatobiliary scan shows prompt and homogeneous hepatic uptake. There is visualized act ivity within the intra and extrahepatic biliary tree at 15 minutes. There is normal biliary to bowel transit, with small bowel visualized by 40 minutes. The gallbladder was not visualized at 60 minutes . The gallbladder was visualized at 80 minutes following morphine administration. IMPRESSION: 1. Nonvisualization of the gallbladder at 60 minutes. 2. The gallbladder was visualized at 80 minutes following morphine administration. This indicates gal lbladder dysfunction. ACT 112: Negative or not required by law. Electronically signed by: Almas Shaffer M.D. 12/18/2023 10:10 AM
[2023-12-18] MEDS: POTASSIUM CHLORIDE / WTR 10 MEQ/100 ML PLCT IV SCH (10:25)
--- NOTE | 2023-12-18 11:43 | Surgery Consultation ---
<Statement entered by Lucina Smith, DO - 12/18/23 16:38> I have discussed and reviewed this case with the surgical PA. MRCP was performed revealing probable pancreatic stones/filling defects. No acute surgical intervention for GB. If patient is clinically improving, he may follow up with a hepatobiliary surgeon as an outpatient to address the questionable pa ncreatic stones after discharge. MRCP: No biliary ductal dilatation. No common bile duct calculi. 2. Pancreatic ductal dilatation, as detailed above. Probable filling defects within the pancreatic duct at the level of the head may reflect stones or debris/sludge. 3. Findings consistent with acute on chronic pancreatitis. 4. Mild gallbladder wall thickening. This may reflect chronic cholecystitis given delayed visualization of gallbladder activity on hepatobiliary scan performed earlier today. Date of Consultation December 18, 2023 Assessment & Plan (1) Dysfunctional gallbladder: On exam the patient is TTP in epigastric area , rating his pain a 5/10, his abdomen is mildly distended and soft. WBC wnl, Lipase downtrending since admission 213. T bili 1.5. VSS, Patient has been NPO since IN. HIDA today not reading acute cholecystitis, Will order an US to further evaluate. Continue IV fluids IV antiemetic PRN IV analgesic Discussed case with on-call surgeon Dr. Smith History of Present Illness Reason for Consultation: possible chronic cholecystitis, acute pancreatitis Requesting Physician: Dr. Robles Attending Physician: Eder Robles MD History of Present Illness Patient is a 63 yo male with PMH of COPD, alcohol abuse, GERD, Hypothyroidism, Pancreatitis, Seizure disorder, HTN, smoker tobacco and marijuana, that presented to the [facility] ER 12/16/23 with C/o abdominal pain with vomiting that started 12/14/23. He had been drinking when they symptoms began. WHile in the ER he underwent a CT scan of his Abd/ Pelvis that was reading acute on chronic pancreatitis, without evidence of pancreatic necrosis, Gallbladder distention with borderline GB wall thickening, Persistent dilation of pancreatic duct with borderline dilation of the CBD. WBC were nonelevated at 8, T bili 1.2 with ast/alt and ak. phos. all wnl. His lipase was elevated at 2575. Today 12/18/23 he underwent a HIDA scan that is reading GB dysfunction without acute cholecystitis. General surgery was consulted for evaluation. The patient denies prior abdominal surgeries but has had ERCPs in the past and stent placements with this procedure. Allergies Allergy/AdvReac Type Severity Reaction Status Date / Time No Known Allergies Allergy Verified 12/11/23 10:30 Home Medications Medication Instructions Recorded Confirmed Type cyanocobalamin (vitamin B-12) 1,000 mcg PO DAILY #30 tabs 08/29/22 12/16/23 Rx 1,000 mcg tablet (Vitamin B-12) magnesium oxide 400 mg (241.3 mg 400 mg PO HS #30 tabs 12/03/22 12/16/23 Rx magnesium) tablet levothyroxine 25 mcg tablet 25 mcg PO DAILYBB #90 tabs 07/09/23 12/16/23 Rx (Synthroid) thiamine HCl (vitamin B1) 100 mg 100 mg PO QAM #30 tabs 07/11/23 12/16/23 Rx tablet folic acid 1 mg tablet 2 mg (2 x 1 mg) PO QAM #180 tabs 08/30/23 12/16/23 Rx pantoprazole 40 mg tablet,delayed 40 mg PO DAILY #30 tabs 09/24/23 12/16/23 Rx release ipratropium 20 mcg-albuterol 100 1 puff inhalation QID PRN 10/23/23 12/16/23 Rx mcg/actuation mist for inhalation Shortness Of Breath #4 grams (Combivent Respimat) lamotrigine 150 mg tablet 150 mg PO BID #60 tabs 11/20/23 12/16/23 Rx (Lamictal) Patient History Medical History Calculus of pancreatic duct Pancreatic duct obstruction Hx of pleural effusion Marijuana use Hx of aspiration pneumonitis 07/2022- treated with abx Poor historian Hx of seizure disorder Last seizure 08/2021- has not had one since started lamictal (did confirmed 10/27/22 with patient's caregiver that he is taking Lamictal daily) Degenerative disc disease History of pancreatitis (~02/2020) S/p ERCP on 07/16/22 with large gallbladder stone removed. Biliary sphincterectomy and stent placed to be removed in 3 months. Thrombocytopenia Depression Macrocytic anemia Surgical History History of esophagogastroduodenoscopy (EGD) 10/19/20 [facility] S/P epidural steroid injection History of colonoscopy Status post tooth extraction Hx of neck surgery (05/2018) cervical fusion (C2-C3?) Full ROM Family History Aunt Parkinson disease Cerebral aneurysm Mother Cerebral aneurysm Depression Anemia Uncle Cerebral aneurysm Other No family history of adverse response to anesthesia Denies family history of Ovarian cancer Prostate cancer Myocardial infarction Breast cancer Lung cancer Colorectal cancer Social History Smoking Status: Current every day smoker Tobacco Type: Cigarettes Age Started Using Tobacco: 17; packs per day: 1; Cigarettes Per Day: 20 per day- advised; Second Hand Exposure: Yes; Do You Dip or Chew Tobacco: No; Tobacco Cessation Education Requested by Patient: No Hx Alcohol Use: Yes Alcohol type: hard liquor Alcohol Intake Frequency Comment: fifth of vodka per week Hx Substance Use: Yes Prescribed Medications: Marijuana Last Used Substance: Days (ago) Last Used Substance Other:: Last night around 1999 Substance Use Type Other:: Daily Preferred Language: Malian Communication Ability: Effective Visual Impairment: No Limitations Hearing Ability: Normal Supervisor Money Room Required: No Beliefs That Will Affect Care: None marital status: Single Current Living Situation: Spouse Current Living Situation Comment: lives in 2 story home with Charmaine ordaz current occupational status: disabled Other Information That Helps Us Care for You: No Feels Safe at Home: Yes Safety Concerns: Feels Safe At This Time Childhood Exposure to Second-Hand Smoke: Yes Diet: regular Diet Comment: regular caffeine: No during the past year weight has: remained stable Dental Care, Regularly: No Physical Activity Frequency: Does not Exercise Seatbelt Use: always Sunscreen Use: No Assistive Devices: None Review of Systems Constitutional: no fever and no chills Respiratory: no dyspnea Gastrointestinal: + abdominal pain, + nausea and + vomitin g Physical Exam Constitutional: cooperative; no acute distress Respiratory: normal respiratory effort and able to speak in complete sentences; no respiratory distress Cardiovascular: Rate/Rhythm: regular rate Gastrointestinal (Abdomen): Inspection/Auscultation: + abdomen distended Percussion/Palpation: + abdomen tender (epigastric area ), + guarding and abdomen soft Results & Data Vital Signs (Past 12 Hours) Vital Signs Temp Pulse Pulse Resp BP Pulse Ox O2 Del Method 12/18/23 10:17 98.2 F 88 16 165/85 H 98 Room Air 12/18/23 07:37 98.8 F 80 18 161/76 H 97 Room Air 12/18/23 07:06 79 12/18/23 03:32 99.0 F 82 20 163/80 H 98 Room Air Diagnostic Findings [place], [place] [phone] CT Scan Report Patient: RIMA COLLAZO Admit Date: 12/16/23 MR#: [id number] Address1: [address] [place] [address] Acct ID:[id number] Address2: Date: 1960 [facility] Zip: [place] [address] Age: 63 Location: Sex: M Room/Bed: N278-2 Att Phy: Eder Robles MD Diagnosis: AOC PANCREATITIS Lucina Phy: Albania Vasquez DO Service Date: 12/17/23 Fam Phy: Interpreting Phy: Dewayne GonzalesAdmit Phy: Ravinder Hahn MD Ordering Phy: Eder Robles MD cc: ~ ABDOMEN AND PELVIS CT WITH IV CONTRAST CT DOSE: 587.11 mGy.cm HISTORY: Acute generalized abdominal pain with reported pancreatitis. acute pancreatitis TECHNIQUE: Multiaxial CT images of the abdomen and pelvis were performed following the IV administration of 94 cc of Optiray, A dose lowering technique was utilized adhering to the principles of ALARA. COMPARISON STUDY: 11/29/2022. FINDINGS: Study is degraded by respiratory motion artifact. Trace pleural effusions with mild dependent subsegmental bibasilar atelectasis. No free air. Unremarkable spleen, liver and adrenal glands. Patency of the hepatic and portal veins. Distended gallbladder with pericholecystic fluid and borderline gallbladder wall thickening. Additionally, there is mild wall thickening involving the cystic and common bile ducts. Transverse dimension of the common bile duct is 7.5 mm. No definite choledocholithiasis identified. There is persistent mild dilation of the pancreatic duct measuring up to 5.5 mm. Mild interstitial peripancreatic edema is redemonstrated with trace fluid within the lesser sac. Pancreatic calcifications are again seen. No acute peripancreatic fluid collections. There is decreased inflammation involving the pancreatic tail compared to the prior study. The gland enhances homogeneously. The contrast enhanced kidneys are normal in size and without hydronephrosis. The kidneys enhance symmetrically. A 9 mm complex/hyperdense cyst is again seen in the left kidney on image #122. Additional subcentimeter cortical hypodensities likely represent cysts but are too small for definitive characterization. No enhancing cortical mass lesion is seen. Atherosclerosis of the aorta without aneurysm or dissection. Subcentimeter retroperitoneal and periportal lymph nodes are likely reactive. Mild circumferential wall thickening of the distal esophagus. Additional wall thickening of the gastroduodenal junction is likely reactive. No bowel obstruction. Trace ascites. Nonspecific circumferential wall thickening of the urinary bladder. Prostatomegaly. Mild gaseous distention of the large bowel. Normal appendix. Tiny fat-filled umbilical hernia. Nonobstructive bowel gas pattern. Right hip joint effusion with mild right-sided iliopsoas bursitis. No acute fracture. IMPRESSION: 1. Mild acute on chronic pancreatitis redemonstrated. No evidence of pancreatic necrosis or acute peripancreatic fluid collection. 2. Mild gallbladder distention with borderline gallbladder wall thickening. Finding should be correlated clinically to exclude acute cholecystitis. 3. There is persistent dilation of the pancreatic duct with borderline dilation of the common bile duct which demonstrates wall enhancement. Finding should be correlated with laboratory analysis in order to exclude infection and/or biliary obstruction with CT occult choledocholithiasis. 4. Trace pleural effusions with trace ascites. 5. No bowel obstruction. ACT 112: Negative or not required by law. The above report was generated using voice recognition software. It may contain grammatical, syntax or spelling errors. Dictated: 12/17/2023 12:18 PM Transcribed: 12/17/2023 12:40 PM Alessandra [id number] JESSICA_Riki [id number] Electronically signed by: Dewayne Gonzales M.D. 12/17/2023 12:58 PM Dictated: 12/17/23 1218 Transcribed: 12/17/23 1240 [place], [place] [phone] Nuclear Medicine Report Patient: RIMA COLLAZO Admit Date: 12/16/23 MR#: [id number] Address1: [address] [place] [address] Acct ID:[id number] Address2: Date: 1960 [facility] Zip: [place] [address] Age: 63 Location: 2N Sex: M Room/Bed: [facility] Att Phy: Eder Rolbes MD Diagnosis: AOC PANCREATITIS Lucina Phy: Albania Vasquez DO Service Date: 12/18/23 Fam Phy: Interpreting Phy: Almas Shaffer MDAdmit Phy: Ravinder Hahn MD Ordering Phy: Eder Robles MD cc: ~ NUCLEAR HEPATOBILIARY SCAN 4.8 CLINICAL HISTORY: Right upper quadrant abdominal pain. COMPARISON STUDY: Abdominal CT dated 12/17/2023. TECHNIQUE: Dynamic images of the liver and anterior abdomen were obtained every 5 minutes for a total of 60 minutes following the IV administration of 4.8 mCi of technetium 99m Mebrofenin. The gallbladder is not visualized at 60 minutes. 2 mg of IV morphine was then administered with additional imaging every 5 minutes for an additional 30 minutes. FINDINGS: The hepatobiliary scan shows prompt and homogeneous hepatic uptake. There is visualized activity within the intra and extrahepatic biliary tree at 15 minutes. There is normal biliary to bowel transit, with small bowel visualized by 40 minutes. The gallbladder was not visualized at 60 minutes. The gallbladder was visualized at 80 minutes following morphine administration. IMPRESSION: 1. Nonvisualization of the gallbladder at 60 minutes. 2. The gallbladder was visualized at 80 minutes following morphine administration. This indicates gallbladder dysfunction. ACT 112: Negative or not required by law. Electronically signed by: Almas Shaffer M.D. 12/18/2023 10:10 AM Dictated: 12/18/23 1007 Transcribed: 12/18/23 1007 PG Care Time/CCT Total # of Minutes Spent Total Time Spent with Patient: Total time spent is greater than 50% in coordination of care (as documented) at patient's floor/unit and/or counseling patient: Coding Level of Care Code 46603 IN/OBS CONSULT LVL 2,35M Diagnoses Dysfunctional gallbladder K82.8
--- NOTE | 2023-12-18 11:52 | Gastrointestinal Consultation ---
Date of Consultation December 18, 2023 Assessment & Plan (1) Acute pancreatitis: (2) Abdominal pain: (3) Nausea & vomiting: (4) Alcohol use: Plan 63 year old male admitted with pancreatitis, imaging suggestive of gallbladder dysfunction. There is also concern for possible biliary issue given biliary and pancreatic duct dilation with a history of pancreatic stones. LFTs with only a slightly elevated T bili of 1.5 with rest of LFTs unremarkable. - surgery is following on gallbladder as well. - check MRCP to r/o and choledocholithiasis or pancreatic duct stones. If this is present, patient will likely need transfer out to somewhere with biliary coverage. - recommended ETOH cessation. Supervising Physician Co-Signing Physician Notes Agree with LIVAN Tim as above Interviewed and examined patient and agree with above Abd: Soft, tender throughout, ND, +BS Continue current therapy and supportive care MRCP with multiple pancreatic duct stones Recommend transfer to center with ERCP capabilities. History of Present Illness Reason for Consultation: pancreatitis, CBD dilation, total bili 1.5. Requesting Physician: Kristin LICONA Attending Physician: Eder Robles MD History of Present Illness Patient is a 63 year old male with history of etoh abuse, who presented to the ED on 12/16/23 with sudden onset abdominal pain, nausea, and vomiting that started that day. He admits to regular ETOH use and admits to prior episodes of pancreatitis. He tells me he seems to get an episode of pancreatitis about once every few months. He admits to drinking 1/5 of liquor a week. Per chart, he admits to drinking vodka the day prior to presentation. He underwent a CT scan 12/16 showing mild acute on chronic pancreatitis, mild gallbladder wall distention and gallbladder wall thickening with concerns for cholecystitis. there is also persistent pancreatic duct and borderline dilation of the common bile duct. Lipase 12/15 was 2575 but has trended down on his stay to 213. HIDA scan 12/18/23 suggestive of gallbladder dysfunction. He still has some ongoing RUQ pain. rated 6/10. he has been tolerating liquid diet. nausea/vomiting has resolved. rest of GI ros negative. ERCP 2021 Pancreatic stone removed. stents placed in pancreatic duct and bile duct. ERCP 2022 two stents removed. pancreatic stones removed. pancreatic stent placed. Allergies Allergy/AdvReac Type Severity Reaction Status Date / Time No Known Allergies Allergy Verified 12/11/23 10:30 Home Medications Medication Instructions Recorded Confirmed Type cyanocobalamin (vitamin B-12) 1,000 mcg PO DAILY #30 tabs 08/29/22 12/16/23 Rx 1,000 mcg tablet (Vitamin B-12) magnesium oxide 400 mg (241.3 mg 400 mg PO HS #30 tabs 12/03/22 12/16/23 Rx magnesium) tablet levothyroxine 25 mcg tablet 25 mcg PO DAILYBB #90 tabs 07/09/23 12/16/23 Rx (Synthroid) thiamine HCl (vitamin B1) 100 mg 100 mg PO QAM #30 tabs 07/11/23 12/16/23 Rx tablet folic acid 1 mg tablet 2 mg (2 x 1 mg) PO QAM #180 tabs 08/30/23 12/16/23 Rx pantoprazole 40 mg tablet,delayed 40 mg PO DAILY #30 tabs 09/24/23 12/16/23 Rx release ipratropium 20 mcg-albuterol 100 1 puff inhalation QID PRN 10/23/23 12/16/23 Rx mcg/actuation mist for inhalation Shortness Of Breath #4 grams (Combivent Respimat) lamotrigine 150 mg tablet 150 mg PO BID #60 tabs 11/20/23 12/16/23 Rx (Lamictal) Patient History Medical History Calculus of pancreatic duct Pancreatic duct obstruction Hx of pleural effusion Marijuana use Hx of aspiration pneumonitis 07/2022- treated with abx Poor historian Hx of seizure disorder Last seizure 08/2021- has not had one since started lamictal (did confirmed 10/27/22 with patient's caregiver that he is taking Lamictal daily) Degenerative disc disease History of pancreatitis (~02/2020) S/p ERCP on 07/16/22 with large gallbladder stone removed. Biliary sphincterectomy and stent placed to be removed in 3 months. Thrombocytopenia Depression Macrocytic anemia Surgical History History of esophagogastroduodenoscopy (EGD) 10/19/20 [facility] S/P epidural steroid injection History of colonoscopy Status post tooth extraction Hx of neck surgery (05/2018) cervical fusion (C2-C3?) Full ROM Family History Aunt Parkinson disease Cerebral aneurysm Mother Cerebral aneurysm Depression Anemia Uncle Cerebral aneurysm Other No family history of adverse response to anesthesia Denies family history of Ovarian cancer Prostate cancer Myocardial infarction Breast cancer Lung cancer Colorectal cancer Social History Smoking Status: Current every day smoker Tobacco Type: Cigarettes Age Started Using Tobacco: 17; packs per day: 1; Cigarettes Per Day: 20 per day- advised; Second Hand Exposure: Yes; Do You Dip or Chew Tobacco: No; Tobacco Cessation Education Requested by Patient: No Hx Alcohol Use: Yes Alcohol type: hard liquor Alcohol Intake Frequency Comment: fifth of vodka per week Hx Substance Use: Yes Prescribed Medications: Marijuana Last Used Substance: Days (ago) Last Used Substance Other:: Last night around 1999 Substance Use Type Other:: Daily Preferred Language: Mongolian Communication Ability: Effective Visual Impairment: No Limitations Hearing Ability: Normal Traffic Court Magistrate Required: No Beliefs That Will Affect Care: None marital status: Single Current Living Situation: Spouse Current Living Situation Comment: lives in 2 story home with Charmaine ordaz current occupational status: disabled Other Information That Helps Us Care for You: No Feels Safe at Home: Yes Safety Concerns: Feels Safe At This Time Childhood Exposure to Second-Hand Smoke: Yes Diet: regular Diet Comment: regular caffeine: No during the past year weight has: remained stable Dental Care, Regularly: No Physical Activity Frequency: Does not Exercise Seatbelt Use: always Sunscreen Use: No Assistive Devices: None Review of Systems Review of Systems: All systems reviewed & are unremarkable except as noted in HPI & below Physical Exam Constitutional: WD/WN, vitals as above Respiratory: normal respiratory effort, lungs clear to auscultation Cardiovascular: RRR, no murmur, no edema Gastrointestinal (Abdomen): RUQ tenderness to palpation, no guarding, soft, normal bowel sounds. Skin: no rashes, warm and dry Psychiatric: Orientation: alert and oriented x 3 Affect: euthymic affect Results & Data Vital Signs (Past 12 Hours) Vital Signs Temp Pulse Pulse Resp BP Pulse Ox O2 Del Method 12/18/23 10:17 98.2 F 88 16 165/85 H 98 Room Air 12/18/23 07:37 98.8 F 80 18 161/76 H 97 Room Air 12/18/23 07:06 79 12/18/23 03:32 99.0 F 82 20 163/80 H 98 Room Air Coding Level of Care Code 23640 IN/OBS CONSULT LVL 4,60M Diagnoses Acute pancreatitis K85.20 Acute pancreatitis complication: unspecified Pancreatitis type: alcohol induced Abdominal pain R10.13 Abdominal location: epigastric Nausea & vomiting R11.2 Vomiting type: unspecified Alcohol use Z78.9 (1) Acute pancreatitis Acute pancreatitis complication: unspecified Pancreatitis type: alcohol induced Qualified Code(s): K85.20 - Alcohol induced acute pancreatitis without necrosis or infection (2) Abdominal pain Abdominal location: epigastric Qualified Code(s): R10.13 - Epigastric pain (3) Nausea & vomiting Vomiting type: unspecified Qualified Code(s): R11.2 - Nausea with vomiting, unspecified
--- NOTE | 2023-12-18 12:07 | Hospitalist Progress Note ---
Date of Service December 18, 2023 Assessment & Plan (1) Acute pancreatitis: Plan: Due to alcohol intake. Possible concurrent chronic cholecystitis. General surgery consultation pending. He remains on IV fluids and antiemetics. Clear liquids as tolerated. Pain control measures. (2) Seizure disorder: Plan: Stable. Continue lamotrigine. IV Ativan as needed. (3) Alcohol use: Plan: Alcohol cessation highly recommended. AWSS protocol ordered if needed. Alcohol level negative on admission (4) Hypothyroidism: Plan: Stable. Continue Synthroid (5) Hypertension: Plan: Blood pressure elevated on admission due to abdominal pain. He takes no medications at home. Will follow. (6) COPD (chronic obstructive pulmonary disease): Plan: Stable. Continue inhalers Plan To be determined. Hopeful eventual discharge to home within the next couple of days Admission and Anticipated Discharge Date Admission Date: December 16, 2023 Subjective Alert and oriented. Clinically he looks a little bit better. Lipase continues to downtrend to 213. HIDA scan done today, December 17, but is suspicious for chronic cholecystitis. General surgery consultation requested. Both potassium and glucose were low this morning, December 17. Dextrose and potassium have been added to the IV fluids. Serial lab Review of Systems 2 Review of Systems: Constitutional-no fever or chills ENT-no blurred vision, no double vision, no epistaxis, no sore throat Respiratory-no cough, no wheezing, no shortness of breath Cardiac-no palpitations, no chest pain, no syncope GI-nauseated but no vomiting. No appetite. Epigastric discomfort. No diarrhea, melena, hematochezia -no urinary retention, no urinary incontinence, no dysuria, no hematuria Musculoskeletal-no joint pain, no muscle tenderness Skin-no bruising, no rashes, no pruritus Neuro-no isolated weakness, no paresthesia, no weakness Psych-no depression, no anxiety Physical Exam 2 Physical Exam: General-alert and oriented x3, no fever, no chills HEENT-head atraumatic and normocephalic, pupils equal and reactive to light, extraocular muscles intact Neck-no lymphadenopathy or thyromegaly, trachea midline Chest-clear to auscultation. No rales, wheezing or rhonchi Cardiac-regular rate and rhythm, normal S1 and S2 Abdomen-normal bowel sounds, no hepatosplenomegaly. Tenderness in the epigastric region. No rebound or guarding. No masses Extremities-no cyanosis, clubbing, or edema Neuro-cranial nerves II through XII intact, motor and sensory function within normal limits, strength symmetrical, no focal deficits Psych-normal affect, normal mood Results & Data Results & Data Vital Signs (Past 12 Hours) Vital Signs Temp Pulse Pulse Resp BP Pulse Ox O2 Del Method 12/18/23 10:17 36.8 C 88 16 165/85 H 98 Room Air 12/18/23 07:37 37.1 C 80 18 161/76 H 97 Room Air 12/18/23 07:06 79 12/18/23 03:32 37.2 C 82 20 163/80 H 98 Room Air Laboratory Results 12/18/23 06:27 12/18/23 06:27 PG Care Time/CCT Total # of Minutes Spent Total Time Spent with Patient: Total time spent is greater than 50% in coordination of care (as documented) at patient's floor/unit and/or counseling patient: Coding Level of Care Code 25126 SUB INP/OBS CARE 3/50MIN Diagnoses Acute pancreatitis K85.20 Acute pancreatitis complication: unspecified Pancreatitis type: alcohol induced Seizure disorder G40.909 Alcohol use Z78.9 Hypothyroidism E03.9 Essential hypertension I10 Hypertension type: essential hypertension COPD (chronic obstructive pulmonary disease) J44.9 (1) Acute pancreatitis Acute pancreatitis complication: unspecified Pancreatitis type: alcohol induced Qualified Code(s): K85.20 - Alcohol induced acute pancreatitis without necrosis or infection (5) Hypertension Hypertension type: essential hypertension Qualified Code(s): I10 - Essential (primary) hypertension
[2023-12-18] MEDS: D5NSS + 20MEQ KCL 20 MEQ/1,000 ML BAG IV SCH (13:07)
--- NOTE | 2023-12-18 14:43 | Magnetic Resonance Report ---
MRCP CLINICAL HISTORY: Abdominal pain, nausea and vomiting. r/o choledocholithiasis and pancreatic duct st ones. TECHNIQUE: Utilizing a 1.5 Naomy magnet and dedicated coil, multiplanar, multiecho imaging of [facility] er abdomen was performed utilizing heavily T2 weighted pulsing sequences without IV contrast. COMPARISON STUDY: CT of the abdomen and pelvis December 17, 2023. FINDINGS: The gallbladder is mildly distended. There is mild gallbladder wall thickening. No gallston es within the gallbladder are identified. There is no intra or extrahepatic biliary ductal dilatation . The common bile duct measures 6 mm in caliber. No common bile duct calculi are identified. The panc reatic duct is dilated, measuring 5 mm in caliber. This is similar to CT of November 29, 2022. Dilated s gee branches are noted. Apparent filling defects within the pancreatic duct at the level the pancreat ic head measure up to 5 mm. Peripancreatic fluid is noted. This was shown on prior CT. This extends i nto the bilateral anterior pararenal spaces. No hepatic lesions are identified on unenhanced exam. Sp aisha, adrenal glands and kidneys are unremarkable. Is no hydronephrosis. There is no abdominal lympha denopathy. There are no peripancreatic fluid collections. IMPRESSION: 1. No biliary ductal dilatation. No common bile duct calculi. 2. Pancreatic ductal dilatation, as detailed above. Probable filling defects within the pancreatic du ct at the level of the head may reflect stones or debris/sludge. 3. Findings consistent with acute on chronic pancreatitis. 4. Mild gallbladder wall thickening. This may reflect chronic cholecystitis given delayed visualizati on of gallbladder activity on hepatobiliary scan performed earlier today. ACT 112: Negative or not required by law. Electronically signed by: Lakhwinder Arias M.D. 12/18/2023 2:42 PM
--- NOTE | 2023-12-18 15:04 | Ultrasound Report ---
US liver CLINICAL HISTORY: r/o acute cholecystitis COMPARISON STUDY: CT of the abdomen and pelvis December 17, 2023. MRCP December 18, 2023. TECHNIQUE: Sonography of the right upper quadrant was performed. FINDINGS: Hepatic echogenicity is increased. Caliber of the common bile duct is at upper limits of no rmal, measuring 7 mm. No common bile duct calculi identified. There is trace perihepatic fluid. Pancr eas is obscured by overlying bowel gas. Moderate dilatation of the pancreatic duct measuring 6 mm is again noted. The gallbladder is distended. There is mild gallbladder wall thickening. There is sludge within the gallbladder. Sonographic Ray sign was elicited. There is no right hydronephrosis. Smal l right pleural effusion is incidentally noted. IMPRESSION: 1. No biliary ductal dilatation. No common bile duct calculi identified. 2. Distended gallbladder with sludge within the gallbladder. No gallstones. Positive sonographic Murp hy sign. The findings could reflect acute or chronic cholecystitis however, gallbladder radiotracer uptake was noted on hepatobiliary scan following morphine administration. Therefore, acute cholecysti tis is considered somewhat less likely. 3. Moderate pancreatic ductal dilatation, shown on CT and MRCP. 4. Obscured pancreas. ACT 112: Negative or not required by law. Electronically signed by: Lakhwinder Arias M.D. 12/18/2023 3:03 PM
[2023-12-19 07:51] LABS: Basophils # (auto) 0.02 K/uL (0.00-0.20); Basophils % (auto) 0.2 %; Eosinophils # (auto) 0.14 K/uL (0.00-0.50); Eosinophils % (auto) 1.5 %; Hematocrit (blood only) 33.6 % (42.0-52.0); Hemoglobin 11.9 g/dl (14.0-18.0); Immature Granulocytes # (auto) 0.02 K/uL (0.01-0.20); Immature Granulocytes % (auto) 0.2 %; Lymphocytes # (auto) 1.42 K/uL (1.20-3.40); Lymphocytes % (auto) 14.8 %; Mean Corpuscular Hemoglobin 33.7 pg (25.0-34.0); Mean Corpuscular Hgb Conc 35.4 g/dL (32.0-36.0); Mean Corpuscular Volume 95.2 fL (80.0-100.0); Mean Platelet Volume 10.6 fL (9.4-12.4); Monocytes # (auto) 1.48 K/uL (0.11-0.59); Monocytes % (auto) 15.4 %; Neutrophils # (auto) 6.54 K/uL (1.40-6.50); Neutrophils % (auto) 67.9 %; Platelet Count 211 K/uL (130-400); RDW Coefficient of Variation 12.5 % (11.5-14.5); RDW Standard Deviation 43.8 fL (36.4-46.3); Red Blood Count 3.53 M/uL (4.70-6.10); White Blood Count 9.62 K/ul (4.8-10.8)
--- NOTE | 2023-12-19 08:01 | Surgery Progress Note ---
<Statement entered by Lucina Smith DO - 12/19/23 11:14> This case was discussed with the surgical MANUFACTURING PROJECT ENGINEER and PA, I agree with this plan. Date of Service December 19, 2023 Assessment & Plan (1) Acute pancreatitis: Plan: Pt with continued abd pain GI recommending transfer to [facility] for ERCP Hospitalist aware and to set up will follow while in house Admission and Anticipated Discharge Date Admission Date: December 16, 2023 Subjective Pt reports abd pain tolerating clears has some nausea/ small amt emesis with medication administration Review of Systems Gastrointestinal: + abdominal pain, + nausea and + vomitin g Physical Exam Physical Exam: alert oriented Constitutional: cooperative and comfortable; no acute distress Respiratory: normal respiratory effort and able to speak in complete sentences; no respiratory distress Gastrointestinal (Abdomen): Percussion/Palpation: + abdomen tender and + guarding Results & Data Vital Signs (Past 12 Hours) Vital Signs Temp Pulse Pulse Resp BP Pulse Ox O2 Del Method 12/19/23 07:21 68 12/19/23 04:30 98.2 F 77 18 162/85 H 96 Room Air 12/18/23 22:36 98.4 F 73 18 142/73 H 95 Room Air 12/18/23 22:02 80 PG Care Time/CCT Total # of Minutes Spent Total Time Spent with Patient: Total time spent is greater than 50% in coordination of care (as documented) at patient's floor/unit and/or counseling patient: Coding Level of Care Code 06530 SUB INP/OBS CARE 1/25MIN Diagnoses Acute pancreatitis K85.20 Acute pancreatitis complication: unspecified Pancreatitis type: alcohol induced (1) Acute pancreatitis Acute pancreatitis complication: unspecified Pancreatitis type: alcohol induced Qualified Code(s): K85.20 - Alcohol induced acute pancreatitis without necrosis or infection
[2023-12-19 08:19] LABS: Albumin Globulin Ratio 1.2 (0.9-2); Albumin Level 3.4 gm/dl (3.4-5.0); BUN Creatinine Ratio 4.8 (10-20); Calcium 8.8 mg/dl (8.6-10.3); Est GFR (African American) 143.6 ml/min; Est GFR (Non-African American) 123.9 ml/min; Globulin 2.8 gm/dl (2.5-4.0); Potassium 3.2 mmol/L (3.5-5.1); Total Protein 6.2 gm/dl (6.0-8.3)
[2023-12-19] MEDS: POTASSIUM CHLORIDE / WTR 10 MEQ/100 ML PLCT IV SCH (09:37)
[2023-12-19] MEDS: SODIUM CHLORIDE 0.9% 500 ML IV ONE (09:39)
[2023-12-19] MEDS ORDERED: Nursing to Pharmacy Communication ONE (11:57)
--- NOTE | 2023-12-19 12:05 | Discharge Summary ---
Date of Service December 19, 2023 Admission HPI Per Admitting Provider 63-year-old male Principal Diagnosis Acute on chronic pancreatitis, pancreatic duct stones and sludge, chronic cholecystitis Discharge Exam General-alert and oriented x3, no fever, no chills HEENT-head atraumatic and normocephalic, pupils equal and reactive to light, extraocular muscles intact Neck-no lymphadenopathy or thyromegaly, trachea midline Chest-clear to auscultation. No rales, wheezing or rhonchi Cardiac-regular rate and rhythm, normal S1 and S2 Abdomen-normal bowel sounds, no hepatosplenomegaly. Tenderness in the epigastric region. No rebound or guarding. No masses Extremities-no cyanosis, clubbing, or edema Neuro-cranial nerves II through XII intact, motor and sensory function within normal limits, strength symmetrical, no focal deficits Psych-normal affect, normal mood Discharge Data Allergies Allergy/AdvReac Type Severity Reaction Status Date / Time No Known Allergies Allergy Verified 12/11/23 10:30 Consultations 12/16/23 13:41 ED Decision to Admit Stat 12/18/23 10:58 Consult General Surgery Routine 12/18/23 11:18 Consult Gastroenterology Routine Ordered Studies 12/17/23 11:06 CT Abd and Pelvis [CT abd pelvis IV con only] Urgent 12/18/23 11:37 US liver Urgent 12/18/23 12:07 MR MRCP Routine Hospital Course (1) Acute pancreatitis: Due to alcohol intake and probably also related to the pancreatic duct stones and sludge. He may also have concurrent chronic cholecystitis. General surgery and gastroenterology consultations appreciated. He will need to be transferred to a tertiary care center for ERCP which cannot be done here. Arrangements have been made for transfer to [facility] when a bed is available. He remains on IV fluids and antiemetics. Clear liquids as tolerated. Pain control measures. (2) Seizure disorder: Stable. Continue lamotrigine. IV Ativan as needed. (3) Alcohol use: Alcohol cessation highly recommended. AWSS protocol ordered if needed. Alcohol level negative on admission (4) Hypothyroidism: Stable. Continue Synthroid (5) Hypertension: Blood pressure elevated on admission due to abdominal pain. He takes no medications at home. Will follow. (6) COPD (chronic obstructive pulmonary disease): Stable. Continue inhalers Plan Transfer to [facility] when bed is available. Total Time Total Time Spent Total Time Spent (In Minutes): 50 minutes Discharge Plan Discharge Items Patient Disposition: Transfer Acute Care Hospital Reason For Visit: AOC PANCREATITIS Discharge Diagnosis: Acute on chronic pancreatitis, probable chronic cholecystitis, pancreatic duct sludge and stones Activity: Resume your previous activity Non-emergency contact: Primary Care Provider Call non-emergency contact if: your symptoms worsen Follow-up/Referrals: Albania Vasquez DO [Primary Care Provider] - Diet: Other - See Diet Comment Diet Comment: Clear liquid diet for now at the time of transfer to [facility] Attending Provider Instructions: See primary care provider soon as possible after discharge from [facility] Pending Studies at Discharge: No Stand-Alone Forms: My [facility] Skilled Items Patient informed of condition?: Yes DNR: No Discharge Level of Care: Other Communicable Disease: No Discharge Prognosis: Stable Lines: Peripheral IV Urinary Catheter: No Medications and DC Order Prescriptions: New enoxaparin [Lovenox] 40 mg/0.4 mL Syringe 40 mg subcut Q24H Qty: 0 0RF morphine 2 mg/mL Syringe 2 mg IV Q2H PRN (Reason: pain) Qty: 0 0RF nicotine 7 mg/24 hr Patch 24 Hour 1 patch transdermal QAM Qty: 0 0RF folic acid 1 mg Tablet 1 mg PO QAM Qty: 0 0RF thiamine HCl (vitamin B1) 100 mg Tablet 100 mg PO QAM Qty: 0 0RF ondansetron HCl (PF) 4 mg/2 mL Solution 4 mg IV Q4H PRNQty: 0 0RF Continued levothyroxine [Synthroid] 25 mcg tablet 25 mcg PO DAILYBB Qty: 90 1RF thiamine HCl (vitamin B1) 100 mg tablet 100 mg PO QAM Qty: 30 4RF folic acid 1 mg tablet 2 mg PO QAM Qty: 180 1RF pantoprazole 40 mg tablet,delayed release (DR/EC) 40 mg PO DAILY Qty: 30 3RF Combivent Respimat 20-100 mcg/actuation mist 1 puff inhalation QID PRN (Reason: Shortness Of Breath) Qty: 4 1RF Rx Instructions: PER SPOUSE "USES ONLY WHEN NEEDED". space evenly during waking hours lamotrigine [Lamictal] 150 mg tablet 150 mg PO BID Qty: 60 2RF cyanocobalamin (vitamin B-12) [Vitamin B-12] 1,000 mcg tablet 1,000 mcg PO DAILY Qty: 30 5RF Rx Instructions: purchase [id number] magnesium oxide 400 mg (241.3 mg magnesium) Tablet 400 mg PO HS Qty: 30 0RF Rx Instructions: OTC Discharge Orders: Discharge Order (Routine); Ordered 12/19/23 Ordered By: Eder Robles Admission Data Admit Date/Time: 12/16/23 14:43 Attending Provider: Eder Robles Admit Provider: Ravinder Hahn Primary Care Provider: [place]ia Vasquez Other Providers: Ravinder Hahn; Federico Womack; Darius Ramos; James Blanco; Jeff Chang; Kumar Valenzuela; Kristin Junior; Sadi Marina; Micheal Kathleen; Lucina Smith; Ari Kinsey; Melyssa Sanders; Tee Cline; Jessica Rosado; Santa Roblero; Joyce Lujan; Tawanna Olmedo; Mariama Sloan; Hebert De; Jovani Montilla; Nguyen Kidd; Joie Luo; Damir Hallman; Maria Esther Conklin; Nae Lamar; Ericka Bansal; Sussy Saldaña; Benoit Isabel; Brain Solomon; Thom Enriquez; Kary Bliss; Kavitha Godfrey Jr Coding Level of Care Code 25205 INP/OBS DISCH >30 MIN Diagnoses Acute pancreatitis K85.20 Acute pancreatitis complication: unspecified Pancreatitis type: alcohol induced Seizure disorder G40.909 Alcohol use Z78.9 Hypothyroidism E03.9 Essential hypertension I10 Hypertension type: essential hypertension COPD (chronic obstructive pulmonary disease) J44.9
[2023-12-19] MEDS: MoRPHine SULFATE 2 MG/ML CARP IV STA (19:31)
[2023-12-19] MEDS: ACETAMINOPHEN 1,000 MG/100 ML VIAL IV PRN (23:02)
[2023-12-20] MEDS: MoRPHine SULFATE 2 MG/ML CARP IV PRN (05:57)
== END 2023-12-20 07:30 | disposition short-term general hospital (02) | DRG 440 ==
LOC: ED 11:49 → SUATTDRO 14:43 → 2N 14:43

== ENCOUNTER 2024-08-28 01:50 | Observation (INO) ==
--- NOTE | 2024-08-28 02:25 | Emergency Department Note ---
Impression & Plan Abdominal pain, Pancreatitis ED Provider Note ED Provider Note NAME: RIMA COLLAZO AGE:64 SEX: Male : 1960 ARRIVES VIA: Private vehicle INFORMANT: Patient ED PROVIDER(s): Cori Michelle DO CHIEF COMPLAINT: Abdominal pain HPI: This is a 64-year-old male presents emergency department due to concern for upper abdominal pain. Patient states pain began several days ago and he describes it as feeling as though someone is "punching him". He states pain became worse today. He states pain is otherwise nonradiating. He does note a decrease in appetite and but denied nausea however he did vomit twice. No hematemesis noted. Patient states he did have recent constipation and did take a stool softener. No melena or hematochezia noted. Patient did not take any medications prior to arrival. He states symptoms feel similar to when he has had prior gallbladder attacks. He states he was previously sent to [place] following a particularly severe episode although no surgery or interventions were required. He denies fevers, chills, or recent cough or cold symptoms. He denies any accompanying chest pain, shortness of breath or recent increased GERD symptoms. He denies any recent use of NSAIDs. Patient does admit to alcohol use last night stating he drank 2 wine coolers. Patient does have a prior history of alcohol abuse and states he has significantly decreased his frequency and amount of alcohol use. No other recent change in diet or medications. No known sick contacts. PAST MEDICAL HISTORY:See Below PAST SURGICAL HISTORY:See Below FAMILY HISTORY:See Below SOCIAL HISTORY:See Below HOME MEDICATIONS:See Below ALLERGIES:See Below VITALS:See Below PHYSICAL EXAMINATION: GENERAL: alert, well appearing, well nourished, no distress, non-toxic EYE EXAM: normal conjunctiva, PERRL and EOM's grossly intact OROPHARYNX: no exudate, no erythema, lips, buccal mucosa, and tongue normal and mucous membranes are dry NECK: supple, no nuchal rigidity, no adenopathy, non-tender LUNGS: Clear to auscultation. Normal chest wall mechanics, no w/r/r HEART: no murmurs, S1 normal and S2 normal ABDOMEN: abdomen soft, tender epigastric and RUQ with palpation, normo-active bowel sounds, no masses, no rebound or guarding. BACK: Back is symmetrical on inspection and there is no deformity SKIN: no rashes, petechiae, orbruising UPPER EXTREMITIES: upper extremities are grossly normal. FROM, nml pulses b/l. LOWER EXTREMITIES: No pitting edema. FROM, nml pulses b/l. NEURO EXAM: Normal sensorium, cranial nerves II-XII grossly intact, normal speech, no facial droop,nogross weakness of arms, no gross weakness of legs. Gross sensation intact. No ataxia. Vital Signs: reviewed and remarkable Differential Diagnosis: Viral syndrome, infections, diverticulitis, UTI, obstruction, mesenteric ischemia, aortic pathology, inflammatory bowel disease, PUD, pancreatitis, biliary pathology, hernia, constipation, as well as other pathologies. MEDICAL DECISION MAKING: This is a 64-year-old male presents emergency department due to concern for abdominal pain. Patient afebrile and hemodynamically stable on arrival. Labs drawn and sent, IV established, EKG and chest x-ray performed at bedside interpreted by me and patient monitored on telemetry. Patient given IV Tylenol, IV Protonix, and IV morphine. He was started on IV fluids. He was sent for CT of the abdomen and pelvis additionally. Patient noted to have normal LFTs however significantly elevated lipase. He was improved here following pain medication. His other labs are reassuring. CT of the abdomen pelvis reviewed, no acute biliary findings however calcifications and edema of the pancreas was noted. At this time I do not suspect choledocholithiasis, acute cholecystitis, or ascending cholangitis. Given need for further IV pain medication and monitoring, we discussed additional inpatient evaluation. Case discussed with the hospitalist team for additional evaluation and management. Consultation(s): 521: Discussed with Dr. Cordon, [facility] hospitalist team, for additional evaluation and management. ER Treatment Provided: See below Diagnostics Interpreted By Me: -ECG: Normal sinus at 82, normal axis, normal intervals, no acute ST/T wave changes -Cardiac Monitoring: An order was placed for continuous cardiac monitoring. The monitor shows a rate of 90 with normal sinus rhythm. -Laboratory studies: As stated above and show below. -Imaging studies: X-ray Chest: A single view study of the chest was reviewed and was negative for cardiomegaly, focal infiltrate, effusion, pulmonary edema, or wide mediastinum. Triage Nursing Note Reviewed Prior/Outside Records Reviewed -review of prior GI consult and imaging from December 2023 Past Med/Surg History Problem List Pancreatitis (Acute) Abdominal pain (Acute) Intermittent claudication Decreased pedal pulses Pulmonary nodule COPD (chronic obstructive pulmonary disease) controlled w/ inhaler use Seizure disorder Chronic cholecystitis Alcoholism in recovery GERD without esophagitis Anxiety Mesial temporal sclerosis Stable per 10/18/22 neuro note Folate deficiency Erectile dysfunction Kidney lesion (Acute) Renal Cyst -CT of Abd noted 02/18/21 first describes 7 mm left renal lesion, hyperdense cyst versus solid renal neoplasm. A nonemergent dedicated renal CT scan or MRI is recommended in follow-up -Renal CT 02/19/21-7 mm left renal lesion in question appeared hyperdense to renal parenchyma on the noncontrast portion of the study and did not demonstrate significant enhancement. This lesion is felt to represent a hyperdense cyst. A 12 month follow-up study would seem prudent. -Renal CT 05/31/21-Stable 9 mm hyperdense/hemorrhagic cyst within the left kidney, There is a 6 mm hypodense lesion within the left kidney which is technically too small to characterize but favors a simple cyst. Tobacco dependence Cricopharyngeal dysphagia Per 08/2022 records- stable; video swallow with cricopharyngeal bar; s/p EGD 07/27/22 with esophageal stenosis which was like cause of the bar seen- s/p dilation- dysphagia improved/resolved Esophageal dysphagia Improved per 08/2022 PCP records Other symptoms and signs involving cognitive functions and awareness Cervical spondylosis Vertebral artery stenosis Per 07/2020 Neck CTA- severe stenosis of the left vertebral artery of the C4 level due to osteophytes Medical History Alcohol abuse Hypothyroidism Hypertension Calculus of pancreatic duct Pancreatic duct obstruction Hx of pleural effusion Marijuana use Hx of aspiration pneumonitis 07/2022- treated with abx Poor historian Hx of seizure disorder Last seizure 08/2021- has not had one since started lamictal (did confirmed 10/27/22 with patient's caregiver that he is taking Lamictal daily) Degenerative disc disease History of pancreatitis (~02/2020) S/p ERCP on 07/16/22 with large gallbladder stone removed. Biliary sphincterectomy and stent placed to be removed in 3 months. Thrombocytopenia Depression Macrocytic anemia Surgical History History of esophagogastroduodenoscopy (EGD) 10/19/20 [facility] S/P epidural steroid injection History of colonoscopy Status post tooth extraction Hx of neck surgery (05/2018) cervical fusion (C2-C3?) Full ROM Family History Aunt Parkinson disease Cerebral aneurysm Mother Cerebral aneurysm Depression Anemia Uncle Cerebral aneurysm Other No family history of adverse response to anesthesia Denies family history of Ovarian cancer Prostate cancer Myocardial infarction Breast cancer Lung cancer Colorectal cancer Social History Smoking Status: Current every day smoker Tobacco Type: Cigarettes Age Started Using Tobacco: 17; packs per day: 1; Cigarettes Per Day: 20 per day- advised; Second Hand Exposure: Yes; Do You Dip or Chew Tobacco: No; Hx Alcohol Use: Yes Alcohol type: hard liquor Alcohol Intake Frequency Comment: fifth of vodka per week Hx Substance Use: Yes Prescribed Medications: Marijuana Last Used Substance: Days (ago) Last Used Substance Other:: Last night around 1999 Substance Use Type Other:: Daily Preferred Language: Haitian Communication Ability: Effective Visual Impairment: No Limitations Hearing Ability: Normal Supervisor Shop Required: No Beliefs That Will Affect Care: None marital status: Single Current Living Situation: Spouse Current Living Situation Comment: lives in [address] [place] with Charmaine ordaz current occupational status: disabled Feels Safe at Home: Yes Childhood Exposure to Second-Hand Smoke: Yes Diet: regular Diet Comment: regular caffeine: No during the past year weight has: remained stable Dental Care, Regularly: No Physical Activity Frequency: Does not Exercise Seatbelt Use: always Sunscreen Use: No Assistive Devices: None Allergies Allergies Allergy/AdvReac Type Severity Reaction Status Date / Time sertraline Allergy Mild Abdominal Verified 06/09/24 11:54 Pain Home Meds Previous Rx's Medication Instructions Recorded cyanocobalamin (vitamin B-12) 1,000 mcg PO DAILY #30 tabs 08/29/22 1,000 mcg tablet (Vitamin B-12) magnesium oxide 400 mg (241.3 mg 400 mg PO HS #30 tabs 12/03/22 magnesium) tablet levothyroxine 25 mcg tablet 25 mcg PO DAILYBB #90 tabs 03/07/24 (Synthroid) ipratropium 20 mcg-albuterol 100 1 puff inhalation QID Shortness Of 05/29/24 mcg/actuation mist for inhalation Breath #4 grams (Combivent Respimat) pantoprazole 40 mg tablet,delayed 40 mg PO DAILY #30 tabs 05/29/24 release thiamine HCl (vitamin B1) 100 mg 100 mg PO QAM #30 tabs 06/10/24 tablet folic acid 1 mg tablet 1 mg PO QAM #90 tabs 08/26/24 lamotrigine 150 mg tablet 150 mg PO BID #60 tabs 08/26/24 (Lamictal) Results & Data (ED) Vital Signs Vital Signs - 24 hr 08/28/24 02:04 08/28/24 03:38 08/28/24 05:38 Temperature 36.5 C Temperature Source Oral Pulse Rate 92 H Pulse Rate [Apical] 86 85 Pulse Rhythm [Apical] Regular Regular Pulse Strength [Apical] Normal Normal Respiratory Rate 18 17 18 Respiratory Effort / Characteristics Non-Labored Non-Labored Spontaneous Non-Labored Spontaneous Respiratory Depth Normal Normal Normal Respiratory Pattern Regular Regular Regular Blood Pressure 150/76 H Blood Pressure [Right Arm] 146/77 H 145/79 H Blood Pressure Mean 100 Blood Pressure Mean [Right Arm] 100 101 Blood Pressure Position Sitting Blood Pressure Position [Right Arm] Sitting Sitting Pulse Oximetry 99 96 97 Oxygen Delivery Method Room Air Room Air Room Air Sepsis Recent Fever Within 48 Hours No Sepsis New/Unexplained Change in Mental Status No Sepsis Action Taken by Nursing No Action Required 08/28/24 07:00 Temperature Temperature Source Pulse Rate Pulse Rate [Apical] 76 Pulse Rhythm [Apical] Pulse Strength [Apical] Respiratory Rate 18 Respiratory Effort / Characteristics Respiratory Depth Respiratory Pattern Blood Pressure Blood Pressure [Right Arm] 132/76 Blood Pressure Mean Blood Pressure Mean [Right Arm] 94 Blood Pressure Position Blood Pressure Position [Right Arm] Pulse Oximetry 96 Oxygen Delivery Method Sepsis Recent Fever Within 48 Hours Sepsis New/Unexplained Change in Mental Status Sepsis Action Taken by Nursing Laboratory Data 08/28/24 02:26 08/28/24 02:26 Lab Results 08/28/24 08/28/24 Range/Units 02:26 04:26 WBC 13.40 H (4.8-10.8) K/ul RBC 4.59 L (4.70-6.10) M/uL Hgb 14.9 (14.0-18.0) g/dl Hct 43.1 (42.0-52.0) % MCV 93.9 (80.0-100.0) fL MCH 32.5 (25.0-34.0) pg MCHC 34.6 (32.0-36.0) g/dL RDW Std Deviation 51.1 H (36.4-46.3) fL RDW Coeff of Brianda 14.7 H (11.5-14.5) % Plt Count 309 (130-400) K/uL MPV 10.5 (9.4-12.4) fL Immature Gran % (Auto) 0.4 % Neut % (Auto) 77.6 % Lymph % (Auto) 13.1 % Rusk % (Auto) 8.2 % Eos % (Auto) 0.4 % Baso % (Auto) 0.3 % Neut # (Auto) 10.39 H (1.40-6.50) K/uL Lymph # (Auto) 1.75 (1.20-3.40) K/uL Rusk # (Auto) 1.10 H (0.11-0.59) K/uL Eos # (Auto) 0.06 (0.00-0.50) K/uL Baso # (Auto) 0.04 (0.00-0.20) K/uL Immature Gran # (Auto) 0.06 (0.01-0.20) K/uL Sodium 135 L (136-145) mmol/L Potassium 3.7 (3.5-5.1) mmol/L Chloride 98 (98-107) mmol/L Carbon Dioxide 30 (21-32) mmol/L Anion Gap 7 (3-11) BUN 8 (6-23) mg/dl Creatinine 0.73 (0.6-1.4) mg/dl Est Cr Clr Drug Dosing 91.7 ml/min eGFR 101.60 BUN/Creatinine Ratio 11.0 (10-20) Glucose 116 H (70-99(Fasting)) mg/dl Calcium 9.7 (8.6-10.3) mg/dl Magnesium 1.8 (1.7-2.4) mg/dl Total Bilirubin 0.6 (0.2-1.0) mg/dl AST 15 (13-39) U/L ALT 10 (7-52) U/L Alkaline Phosphatase 83 (34-104) U/L Troponin I High Sens 5.0 (0-20) pg/ml Total Protein 7.5 (6.0-8.3) gm/dl Albumin 4.7 (3.4-5.0) gm/dl Globulin 2.8 (2.5-4.0) gm/dl Albumin/Globulin Ratio 1.7 (0.9-2) Lipase 1565 H (11-82) U/L Urine Color Yellow Urine Appearance Clear (Clear) Urine pH 7.5 (4.5-7.5) Ur Specific Carson 1.026 (1.000-1.030) Urine Protein Negative (Negative) Urine Glucose (UA) Negative (Negative) Urine Ketones Trace H (Negative) Urine Blood Negative (Negative) Urine Nitrite Negative (Negative) Urine Bilirubin Negative (Negative) Urine Urobilinogen Negative (Negative) Ur Leukocyte Esterase Negative (Negative) Administered Medications Discontinued Medications Sodium Chloride (Nss) 1,000 mls @ 999 mls/hr IV .Q1H1M ONE Stop: 08/28/24 03:31 Last Infusion: 08/28/24 04:30 Dose: Infused Documented By: Admin: 08/28/24 02:44 Dose: 999 mls/hr Documented By: STEFAN Pantoprazole Sodium (Protonix) 40 mg in 10 mls @ 5 mls/min IV NOW ONE Stop: 08/28/24 02:40 Last Admin: 08/28/24 02:46 Dose: 5 mls/min Documented By: STEFAN Sodium Chloride (Nss) 1,000 mls @ 999 mls/hr IV .Q1H1M ONE Stop: 08/28/24 04:39 Last Infusion: 08/28/24 05:48 Dose: Infused Documented By: Admin: 08/28/24 04:33 Dose: 999 mls/hr Documented By: THANIA Acetaminophen (Ofirmev) 1,000 mg in 100 mls @ 400 mls/hr IV NOW STA Stop: 08/28/24 05:47 Last Infusion: 08/28/24 06:28 Dose: Infused Documented By: Admin: 08/28/24 05:44 Dose: 400 mls/hr Documented By: THANIA Ioversol (Optiray 320 100ml) 100 ml IV ONCE ONE Stop: 08/28/24 03:17 Last Admin: 08/28/24 03:16 Dose: 93 ml Documented By: DIAMANTE Morphine Sulfate (Morphine Sulfate 4 Mg/Ml 1 Ml Carp\\Vial) 4 mg IV NOW STA Stop: 08/28/24 02:40 Last Admin: 08/28/24 02:45 Dose: 4 mg Documented By: STEFAN Morphine Sulfate (Morphine Sulfate 4 Mg/Ml 1 Ml Carp\\Vial) 4 mg IV NOW STA Stop: 08/28/24 05:34 Last Admin: 08/28/24 05:44 Dose: 4 mg Documented By: THANIA Imaging Data Radiologist's Impression: Abdomen/Pelvis CT 08/28/24 02:26 EXAM: CT abd pelvis IV con only CLINICAL HISTORY: 93 ML OPTIRAY 320, PAIN UPPER ABD, KNOWN GALL STONES TECHNIQUE: Contiguous axial images were obtained from the level of the diaphragm to the pubic symphysis without and with intravenous contrast. Coronal and sagittal reconstructions were likewise performed and indicated to increase the sensitivity for detecting clinically relevant pathology. If IV contrast material had not been administered, the likelihood of detecting abnormalities relevant to the patient's condition would have been substantially decreased. CT scan was performed according to ALARA (as low as reasonable achievable). COMPARISON: None. FINDINGS: The visualized lung bases are clear. The liver is normal in size and attenuation. Few small calcifications are noted involving right, lobe of liver. There is no intra or extrahepatic biliary ductal dilatation. Hepatic vasculature is patent. The gallbladder is present. The spleen, and adrenal glands are unremarkable. Pancreas appears mildly bulky and shows subtle adjacent fat stranding Multiple calcific foci are noted involving pancreas predominantly head and uncinate process. Mild dilatation of main pancreatic duct up to 4 mm The kidneys are normal in size and attenuation. There is no hydronephrosis or perinephric fat stranding. No renal calculi or renal masses are identified. The ureters are normal in caliber and no ureteral calculi are seen. The bladder is normal in contour. Pelvic viscera are unremarkable. No focal or diffuse bowel wall thickening or evidence of bowel obstruction is identified. The appendix is visualized in the right lower quadrant and appears within normal limits. Abdominal and pelvic vasculature is patent. No adenopathy or fluid collections are seen. No aggressive appearing osseous lesions are identified. IMPRESSION: Pancreas appears mildly bulky and shows subtle adjacent fat stranding Multiple calcific foci are noted involving pancreas predominantly head and uncinate process.- possibility of chronic pancreatitis likely. No obvious radio-opaque GB calculi are seen. No obvious cholecystitis. Electronically signed by Danie Hopkins 08-28-2024 05:12 AM Chest X-Ray 08/28/24 02:26 EXAM: XR chest 1V portable CLINICAL HISTORY: ABD PAIN JMF TECHNIQUE: An X-ray image of the chest is obtained in AP projection. COMPARISON: 12/16/2023 FINDINGS: Pulmonary Parenchyma: Lungs are hyperinflated, evident by flattening of the diaphragm, with bilateral prominent bronchovascular markings. No evidence of consolidation, collapse, or focal opacities. No pulmonary nodules are identified. No evidence of pleural effusion or pleural thickening. Heart and Mediastinum: Heart size and shape are normal. No mediastinal widening or masses. No hilar or mediastinal lymphadenopathy. Bony Thorax: Bony thorax appears intact without fractures or deformities. Soft Tissues: Soft tissues overlying the chest wall are unremarkable. IMPRESSION: 1. Hyperinflated lungs with prominent bronchovascular markings may suggest pulmonary emphysema. 2. No interval changes. Electronically signed by Denis Rojo 08-28-2024 04:26 AM Discharge Plan Visit Data Chief Complaint: Abdominal Pain Stated Complaint: ABDOMINAL PAIN X2 DAYS ED Provider: Cori Michelle Discharge Problem: Abdominal pain, Pancreatitis Forms Stand Alone Forms: [place] Prescriptions Prescriptions: No Action levothyroxine [Synthroid] 25 mcg tablet 25 mcg PO DAILYBB Qty: 90 1RF Combivent Respimat 20-100 mcg/actuation mist 1 puff inhalation QID Qty: 4 5RF pantoprazole 40 mg tablet,delayed release (DR/EC) 40 mg PO DAILY Qty: 30 3RF thiamine HCl (vitamin B1) 100 mg tablet 100 mg PO QAM Qty: 30 4RF folic acid 1 mg tablet 1 mg PO QAM Qty: 90 2RF lamotrigine [Lamictal] 150 mg tablet 150 mg PO BID Qty: 60 5RF cyanocobalamin (vitamin B-12) [Vitamin B-12] 1,000 mcg tablet 1,000 mcg PO DAILY Qty: 30 5RF Rx Instructions: purchase [id number] magnesium oxide 400 mg (241.3 mg magnesium) Tablet 400 mg PO HS Qty: 30 0RF Rx Instructions: OTC Referrals Referrals: Albania Vasquez DO [Physician] -
[2024-08-28] MEDS: SODIUM CHLORIDE 0.9% 1,000 ML IV ONE ×2 (02:44→04:33)
[2024-08-28] MEDS: MoRPHine SULFATE 4 MG/ML 1 ML CARP\\VIAL IV STA ×2 (02:45→05:44)
[2024-08-28] MEDS: PANTOprazole 40 MG/10 ML SYR IV ONE (02:46)
[2024-08-28 02:49] LABS: Basophils # (auto) 0.04 K/uL (0.00-0.20); Basophils % (auto) 0.3 %; Eosinophils # (auto) 0.06 K/uL (0.00-0.50); Eosinophils % (auto) 0.4 %; Hematocrit (blood only) 43.1 % (42.0-52.0); Hemoglobin 14.9 g/dl (14.0-18.0); Immature Granulocytes # (auto) 0.06 K/uL (0.01-0.20); Immature Granulocytes % (auto) 0.4 %; Lymphocytes # (auto) 1.75 K/uL (1.20-3.40); Lymphocytes % (auto) 13.1 %; Mean Corpuscular Hemoglobin 32.5 pg (25.0-34.0); Mean Corpuscular Hgb Conc 34.6 g/dL (32.0-36.0); Mean Corpuscular Volume 93.9 fL (80.0-100.0); Mean Platelet Volume 10.5 fL (9.4-12.4); Monocytes % (auto) 8.2 %; Neutrophils # (auto) 10.39 K/uL (1.40-6.50); Neutrophils % (auto) 77.6 %; Platelet Count 309 K/uL (130-400); RDW Coefficient of Variation 14.7 % (11.5-14.5); RDW Standard Deviation 51.1 fL (36.4-46.3); Red Blood Count 4.59 M/uL (4.70-6.10)
[2024-08-28 02:51] LABS: Calcium 9.7 mg/dl (8.6-10.3); Creatinine Clr Calc Pharmacy 91.7 ml/min; Potassium 3.7 mmol/L (3.5-5.1)
[2024-08-28] MEDS: OPTIRAY 320 100ml IV ONE (03:16)
[2024-08-28 03:30] LABS: Albumin Globulin Ratio 1.7 (0.9-2); Albumin Level 4.7 gm/dl (3.4-5.0); Bilirubin,Total 0.6 mg/dl (0.2-1.0); Globulin 2.8 gm/dl (2.5-4.0); Magnesium 1.8 mg/dl (1.7-2.4); Total Protein 7.5 gm/dl (6.0-8.3)
--- NOTE | 2024-08-28 04:26 | XRay Report ---
EXAM: XR chest 1V portable CLINICAL HISTORY: ABD PAIN JMF TECHNIQUE: An X-ray image of the chest is obtained in AP projection. COMPARISON: 12/16/2023 FINDINGS: Pulmonary Parenchyma: Lungs are hyperinflated, evident by flattening of the diaphragm, with bilateral prominent bronchovascular markings. No evidence of consolidation, collapse, or focal opacities. No pulmonary nodules are identified. No evidence of pleural effusion or pleural thickening. Heart and Mediastinum: Heart size and shape are normal. No mediastinal widening or masses. No hilar or mediastinal lymphadenopathy. Bony Thorax: Bony thorax appears intact without fractures or deformities. Soft Tissues: Soft tissues overlying the chest wall are unremarkable. IMPRESSION: 1. Hyperinflated lungs with prominent bronchovascular markings may suggest pulmonary emphysema. 2. No interval changes. Electronically signed by Denis Rojo 08-28-2024 04:26 AM
[2024-08-28 04:53] LABS: Appearance Urine Clear (Clear); Bilirubin Urine Negative (Negative); Blood Urine Negative (Negative); Color Urine Yellow; Glucose Urine UA Negative (Negative); Ketones Urine Trace (Negative); Leukocyte Esterase Urine Negative (Negative); Nitrite Urine Negative (Negative); Protein Urine Negative (Negative); Specific Gravity Urine 1.026 (1.000-1.030); Urobilinogen Urine Negative (Negative); pH Urine 7.5 (4.5-7.5)
--- NOTE | 2024-08-28 05:12 | CT Scan Report ---
EXAM: CT abd pelvis IV con only CLINICAL HISTORY: 93 ML OPTIRAY 320, PAIN UPPER ABD, KNOWN GALL STONES TECHNIQUE: Contiguous axial images were obtained from the level of the diaphragm to the pubic symphysis without and with intravenous contrast. Coronal and sagittal reconstructions were likewise performed and indicated to increase the sensitivity for detecting clinically relevant pathology. If IV contrast material had not been administered, the likelihood of detecting abnormalities relevant to the patient's condition would have been substantially decreased. CT scan was performed according to ALARA (as low as reasonable achievable). COMPARISON: None. FINDINGS: The visualized lung bases are clear. The liver is normal in size and attenuation. Few small calcifications are noted involving right, lobe of liver. There is no intra or extrahepatic biliary ductal dilatation. Hepatic vasculature is patent. The gallbladder is present. The spleen, and adrenal glands are unremarkable. Pancreas appears mildly bulky and shows subtle adjacent fat stranding Multiple calcific foci are noted involving pancreas predominantly head and uncinate process. Mild dilatation of main pancreatic duct up to 4 mm The kidneys are normal in size and attenuation. There is no hydronephrosis or perinephric fat stranding. No renal calculi or renal masses are identified. The ureters are normal in caliber and no ureteral calculi are seen. The bladder is normal in contour. Pelvic viscera are unremarkable. No focal or diffuse bowel wall thickening or evidence of bowel obstruction is identified. The appendix is visualized in the right lower quadrant and appears within normal limits. Abdominal and pelvic vasculature is patent. No adenopathy or fluid collections are seen. No aggressive appearing osseous lesions are identified. IMPRESSION: Pancreas appears mildly bulky and shows subtle adjacent fat stranding Multiple calcific foci are noted involving pancreas predominantly head and uncinate process.- possibility of chronic pancreatitis likely. No obvious radio-opaque GB calculi are seen. No obvious cholecystitis. Electronically signed by Danie Hopkins 08-28-2024 05:12 AM
--- NOTE | 2024-08-28 05:22 | History & Physical Report ---
Date of Service August 28, 2024 Assessment & Plan (1) Pancreatitis: Plan: 64yo male presenting with acute pancreatitis - inflammation noted on CT imaging, elevated [id number]. Patient with history of gallstone pancreatitis in the past. He also drinks EtOH but reports only 3-4 drinks per week now. Pain is improved after Morphine -Admit to medical -Check EtOH level -Maintain NPO status -Continue IVF - NSS at 200mL/hr x 3L ordered -Repeat LFTs in AM. Consider RUQUS to further assess for gallstones - none noted on CT. Dilation of pancreatic duct present on prior imaging -Morphine PRN -Zofran PRN -AWSS at risk protocol -Continue Thiamine and Folate PO daily (2) COPD (chronic obstructive pulmonary disease): Plan: Chronic. No cough, SOB or wheeze. -Continue Combivent QID (3) Seizure disorder: Plan: Chronic, stable -Maintain seizure precautions -Continue Lamictal 150mg po BID (4) GERD without esophagitis: Plan: Chronic -Protonix 40mg po daily History of Present Illness Chief Complaint: abdominal pain Primary Care Provider: LANDON Paredes Jorge Coronado is a 64yo male with history of HTN, GERD, Seizure disorder and COPD presenting with abdominal pain - epigastric pain ongoing for the last 3 days. Pain is severe and "unbearable". He has had decreased appetite and poor oral intake as well as several episodes of non-bloody vomiting. No report of fever or chills. No chest pain, cough or SOB. No diarrhea. Patient reports drinking infrequently 3-4 drinks/week In the ER he is afebrile, HD stable and non-toxic in appearance Lipase is elevated at 1565 CT findings as below ER Course: Morphine Protonix NSS x 2L Allergies Allergy/AdvReac Type Severity Reaction Status Date / Time sertraline Allergy Mild Abdominal Verified 06/09/24 11:54 Pain Home Medications Medication Instructions Recorded Confirmed Type cyanocobalamin (vitamin B-12) 1,000 mcg PO DAILY #30 tabs 08/29/22 08/28/24 Rx 1,000 mcg tablet (Vitamin B-12) magnesium oxide 400 mg (241.3 mg 400 mg PO HS #30 tabs 12/03/22 08/28/24 Rx magnesium) tablet levothyroxine 25 mcg tablet 25 mcg PO DAILYBB #90 tabs 03/07/24 08/28/24 Rx (Synthroid) ipratropium 20 mcg-albuterol 100 1 puff inhalation QID Shortness Of 05/29/24 08/28/24 Rx mcg/actuation mist for inhalation Breath #4 grams (Combivent Respimat) pantoprazole 40 mg tablet,delayed 40 mg PO DAILY #30 tabs 05/29/24 08/28/24 Rx release thiamine HCl (vitamin B1) 100 mg 100 mg PO QAM #30 tabs 06/10/24 08/28/24 Rx tablet folic acid 1 mg tablet 1 mg PO QAM #90 tabs 08/26/24 08/28/24 Rx lamotrigine 150 mg tablet 150 mg PO BID #60 tabs 08/26/24 08/28/24 Rx (Lamictal) Past Med/Surg History Problem List Pancreatitis (Acute) Abdominal pain (Acute) Intermittent claudication Decreased pedal pulses Pulmonary nodule COPD (chronic obstructive pulmonary disease) controlled w/ inhaler use Seizure disorder Chronic cholecystitis Alcoholism in recovery GERD without esophagitis Anxiety Mesial temporal sclerosis Stable per 10/18/22 neuro note Folate deficiency Erectile dysfunction Kidney lesion (Acute) Renal Cyst -CT of Abd noted 02/18/21 first describes 7 mm left renal lesion, hyperdense cyst versus solid renal neoplasm. A nonemergent dedicated renal CT scan or MRI is recommended in follow-up -Renal CT 02/19/21-7 mm left renal lesion in question appeared hyperdense to renal parenchyma on the noncontrast portion of the study and did not demonstrate significant enhancement. This lesion is felt to represent a hyperdense cyst. A 12 month follow-up study would seem prudent. -Renal CT 05/31/21-Stable 9 mm hyperdense/hemorrhagic cyst within the left kidney, There is a 6 mm hypodense lesion within the left kidney which is technically too small to characterize but favors a simple cyst. Tobacco dependence Cricopharyngeal dysphagia Per 08/2022 records- stable; video swallow with cricopharyngeal bar; s/p EGD 07/27/22 with esophageal stenosis which was like cause of the bar seen- s/p dilation- dysphagia improved/resolved Esophageal dysphagia Improved per 08/2022 PCP records Other symptoms and signs involving cognitive functions and awareness Cervical spondylosis Vertebral artery stenosis Per 07/2020 Neck CTA- severe stenosis of the left vertebral artery of the C4 level due to osteophytes Medical History Alcohol abuse Hypothyroidism Hypertension Calculus of pancreatic duct Pancreatic duct obstruction Hx of pleural effusion Marijuana use Hx of aspiration pneumonitis 07/2022- treated with abx Poor historian Hx of seizure disorder Last seizure 08/2021- has not had one since started lamictal (did confirmed 10/27/22 with patient's caregiver that he is taking Lamictal daily) Degenerative disc disease History of pancreatitis (~02/2020) S/p ERCP on 07/16/22 with large gallbladder stone removed. Biliary sphincterectomy and stent placed to be removed in 3 months. Thrombocytopenia Depression Macrocytic anemia Surgical History History of esophagogastroduodenoscopy (EGD) 10/19/20 [facility] S/P epidural steroid injection History of colonoscopy Status post tooth extraction Hx of neck surgery (05/2018) cervical fusion (C2-C3?) Full ROM Family History Aunt Parkinson disease Cerebral aneurysm Mother Cerebral aneurysm Depression Anemia Uncle Cerebral aneurysm Other No family history of adverse response to anesthesia Denies family history of Ovarian cancer Prostate cancer Myocardial infarction Breast cancer Lung cancer Colorectal cancer Social History Smoking Status: Current every day smoker Tobacco Type: Cigarettes Age Started Using Tobacco: 17; packs per day: 1; Cigarettes Per Day: 20 per day- advised; Second Hand Exposure: Yes; Do You Dip or Chew Tobacco: No; Hx Alcohol Use: Yes Alcohol type: hard liquor Alcohol Intake Frequency Comment: fifth of vodka per week Hx Substance Use: Yes Prescribed Medications: Marijuana Last Used Substance: Days (ago) Last Used Substance Other:: Last night around 1999 Substance Use Type Other:: Daily Preferred Language: Hungarian Communication Ability: Effective Visual Impairment: No Limitations Hearing Ability: Normal Phlebotomy Support Tech Required: No Beliefs That Will Affect Care: None marital status: Single Current Living Situation: Spouse Current Living Situation Comment: lives in 2 story home with Charmaine ordaz current occupational status: disabled Feels Safe at Home: Yes Childhood Exposure to Second-Hand Smoke: Yes Diet: regular Diet Comment: regular caffeine: No during the past year weight has: remained stable Dental Care, Regularly: No Physical Activity Frequency: Does not Exercise Seatbelt Use: always Sunscreen Use: No Assistive Devices: None Review of Systems Review of Systems: All systems reviewed & are unremarkable except as noted in HPI & below Physical Exam Physical Exam: General: patient resting comfortably, NAD, non-toxic in appearance, AA&O x 4 Skin: back skin dry, erythematous HEENT: NC/AT, PERRL, EOMI, anicteric sclera, conjunctiva without injection, external ear normal to inspection and nontender, nares patent, dry mucus membranes, dentition intact, no oropharyngeal lesions, neck supple, trachea midline, no LAD, no thyromegaly, no JVD Heart: +S1/S2, regular, no m/r/g Lungs: equal air entry bilaterally, no rales/rhonchi/wheezes Abd: +BS, soft, epigastric tenderness, ND, no masses/organomegaly/ascites Ext: warm, 2+ pulses in UE/LE bilaterally, no clubbing/cyanosis or edema Neuro: nonfocal, patient AA&O x 4, speech intact, no facial droop, moving all extremities on command with equal strength 5/5 Results & Data Results & Data Vital Signs (Past 12 Hours) Vital Signs Temp Pulse Resp BP Pulse Ox O2 Del Method 08/28/24 02:04 36.5 C 92 H 18 150/76 H 99 Room Air Laboratory Results Laboratory Results WBC 13.40 K/ul (4.8-10.8) H 08/28/24 02:26 RBC 4.59 M/uL (4.70-6.10) L 08/28/24 02:26 Hgb 14.9 g/dl (14.0-18.0) 08/28/24 02:26 Hct 43.1 % (42.0-52.0) 08/28/24 02:26 MCV 93.9 fL (80.0-100.0) 08/28/24 02:26 MCH 32.5 pg (25.0-34.0) 08/28/24 02:26 MCHC 34.6 g/dL (32.0-36.0) 08/28/24 02: RDW Std Deviation 51.1 fL (36.4-46.3) H 08/28/24 02: RDW Coeff of Brianda 14.7 % (11.5-14.5) H 08/28/24 02: Plt Count 309 K/uL (130-400) 08/28/24 02: MPV 10.5 fL (9.4-12.4) 08/28/24 02: Immature Gran % (Auto) 0.4 % 08/28/24 02: Neut % (Auto) 77.6 % 08/28/24 02: Lymph % (Auto) 13.1 % 08/28/24 02:26 [place] % (Auto) 8.2 % 08/28/24 02: Eos % (Auto) 0.4 % 08/28/24 02: Baso % (Auto) 0.3 % 08/28/24 02: Neut # (Auto) 10.39 K/uL (1.40-6.50) H 08/28/24 02:26 Lymph # (Auto) 1.75 K/uL (1.20-3.40) 08/28/24 02:26 [place] # (Auto) 1.10 K/uL (0.11-0.59) H 08/28/24 02:26 Eos # (Auto) 0.06 K/uL (0.00-0.50) 08/28/24 02:26 Baso # (Auto) 0.04 K/uL (0.00-0.20) 08/28/24 02:26 Immature Gran # (Auto) 0.06 K/uL (0.01-0.20) 08/28/24 02:26 Sodium 135 mmol/L (136-145) L 08/28/24 02: Potassium 3.7 mmol/L (3.5-5.1) 08/28/24 02: Chloride 98 mmol/L (98-107) 08/28/24 02: Carbon Dioxide 30 mmol/L (21-32) 08/28/24 02:26 Anion Gap 7 (3-11) 08/28/24 02:26 BUN 8 mg/dl (6-23) 08/28/24 02:26 Creatinine 0.73 mg/dl (0.6-1.4) 08/28/24 02:26 Est Cr Clr Drug Dosing 91.7 ml/min 08/28/24 02:26 eGFR 101.60 08/28/24 02:26 BUN/Creatinine Ratio 11.0 (10-20) 08/28/24 02:26 Glucose 116 mg/dl (70-99(Fasting)) H 08/28/24 02:26 Calcium 9.7 mg/dl (8.6-10.3) 08/28/24 02:26 Magnesium 1.8 mg/dl (1.7-2.4) 08/28/24 02:26 Total Bilirubin 0.6 mg/dl (0.2-1.0) 08/28/24 02:26 AST 15 U/L (13-39) 08/28/24 02:26 ALT 10 U/L (7-52) 08/28/24 02:26 Alkaline Phosphatase 83 U/L (34-104) 08/28/24 02:26 Troponin I High Sens 5.0 pg/ml (0-20) 08/28/24 02:26 Total Protein 7.5 gm/dl (6.0-8.3) 08/28/24 02:26 Albumin 4.7 gm/dl (3.4-5.0) 08/28/24 02:26 Globulin 2.8 gm/dl (2.5-4.0) 08/28/24 02:26 Albumin/Globulin Ratio 1.7 (0.9-2) 08/28/24 02:26 Lipase 1565 U/L (11-82) H 08/28/24 02:26 Urine Color Yellow 08/28/24 04:26 Urine Appearance Clear (Clear) 08/28/24 04:26 Urine pH 7.5 (4.5-7.5) 08/28/24 04:26 Ur Specific [place] 1.026 (1.000-1.030) 08/28/24 04:26 Urine Protein Negative (Negative) 08/28/24 04:26 Urine Glucose (UA) Negative (Negative) 08/28/24 04:26 Urine Ketones Trace (Negative) H 08/28/24 04:26 Urine Blood Negative (Negative) 08/28/24 04:26 Urine Nitrite Negative (Negative) 08/28/24 04:26 Urine Bilirubin Negative (Negative) 08/28/24 04:26 Urine Urobilinogen Negative (Negative) 08/28/24 04:26 Ur Leukocyte Esterase Negative (Negative) 08/28/24 04:26 Impressions Abdomen/Pelvis CT 08/28/24 02:26 EXAM: CT abd pelvis IV con only CLINICAL HISTORY: 93 ML OPTIRAY 320, PAIN UPPER ABD, KNOWN GALL STONES TECHNIQUE: Contiguous axial images were obtained from the level of the diaphragm to the pubic symphysis without and with intravenous contrast. Coronal and sagittal reconstructions were likewise performed and indicated to increase the sensitivity for detecting clinically relevant pathology. If IV contrast material had not been administered, the likelihood of detecting abnormalities relevant to the patient's condition would have been substantially decreased. CT scan was performed according to ALARA (as low as reasonable achievable). COMPARISON: None. FINDINGS: The visualized lung bases are clear. The liver is normal in size and attenuation. Few small calcifications are noted involving right, lobe of liver. There is no intra or extrahepatic biliary ductal dilatation. Hepatic vasculature is patent. The gallbladder is present. The spleen, and adrenal glands are unremarkable. Pancreas appears mildly bulky and shows subtle adjacent fat stranding Multiple calcific foci are noted involving pancreas predominantly head and uncinate process. Mild dilatation of main pancreatic duct up to 4 mm The kidneys are normal in size and attenuation. There is no hydronephrosis or perinephric fat stranding. No renal calculi or renal masses are identified. The ureters are normal in caliber and no ureteral calculi are seen. The bladder is normal in contour. Pelvic viscera are unremarkable. No focal or diffuse bowel wall thickening or evidence of bowel obstruction is identified. The appendix is visualized in the right lower quadrant and appears within normal limits. Abdominal and pelvic vasculature is patent. No adenopathy or fluid collections are seen. No aggressive appearing osseous lesions are identified. IMPRESSION: Pancreas appears mildly bulky and shows subtle adjacent fat stranding Multiple calcific foci are noted involving pancreas predominantly head and uncinate process.- possibility of chronic pancreatitis likely. No obvious radio-opaque GB calculi are seen. No obvious cholecystitis. Electronically signed by Danie Hopkins 08-28-2024 05:12 AM Chest X-Ray 08/28/24 02:26 EXAM: XR chest 1V portable CLINICAL HISTORY: ABD PAIN JMF TECHNIQUE: An X-ray image of the chest is obtained in AP projection. COMPARISON: 12/16/2023 FINDINGS: Pulmonary Parenchyma: Lungs are hyperinflated, evident by flattening of the diaphragm, with bilateral prominent bronchovascular markings. No evidence of consolidation, collapse, or focal opacities. No pulmonary nodules are identified. No evidence of pleural effusion or pleural thickening. Heart and Mediastinum: Heart size and shape are normal. No mediastinal widening or masses. No hilar or mediastinal lymphadenopathy. Bony Thorax: Bony thorax appears intact without fractures or deformities. Soft Tissues: Soft tissues overlying the chest wall are unremarkable. IMPRESSION: 1. Hyperinflated lungs with prominent bronchovascular markings may suggest pulmonary emphysema. 2. No interval changes. Electronically signed by Denis Rojo 08-28-2024 04:26 AM PG Care Time/CCT Total # of Minutes Spent Total Time Spent with Patient: Total time spent is greater than 50% in coordination of care (as documented) at patient's floor/unit and/or counseling patient: Coding Level of Care Code 46893 INT INP/OBS CARE 3/75MIN Diagnoses Pancreatitis K85.90 COPD (chronic obstructive pulmonary disease) J44.9 Seizure disorder G40.909 GERD without esophagitis K21.9
[2024-08-28] MEDS: ACETAMINOPHEN 1,000 MG/100 ML VIAL IV STA (05:44)
[2024-08-28] MEDS ORDERED: LORazepam 2 MG/1 ML VIAL IV PRN (09:02)
[2024-08-28] MEDS ORDERED: IPRATROPIUM BROMIDE/ALBUTEROL respimat INH INH SCH (09:02)
[2024-08-28] MEDS ORDERED: ONDANSETRON INJ 2 MG/ML 2 ML VIAL IV PRN (09:02)
[2024-08-28] MEDS: SODIUM CHLORIDE 0.9% 1,000 ML IV SCH (09:58)
[2024-08-28] MEDS: lamoTRIgine 25 MG TAB PO SCH (09:58)
[2024-08-28] MEDS: LEVOTHYROXINE SODIUM 25 MCG TABLET PO SCH (09:59)
[2024-08-28] MEDS: MULTIVITAMIN TAB PO SCH (09:59)
[2024-08-28] MEDS: FOLIC ACID 1 MG TAB PO SCH (09:59)
[2024-08-28] MEDS: THIAMINE HCL 100 MG TAB PO SCH (09:59)
[2024-08-28] MEDS: PANTOprazole 40 MG TAB PO SCH (09:59)
[2024-08-28] MEDS: NICOTINE 21 MG/24 HR TDSY TD SCH (09:59)
[2024-08-28] MEDS: POLYETHYLENE (MIRALAX) 17 GM PACK PO SCH (10:06)
[2024-08-28] MEDS: MoRPHine SULFATE 4 MG/ML 1 ML CARP\\VIAL IV PRN (12:32)
[2024-08-28] MEDS: Albuterol HFA 8 GM Inhaler (Combivent Respimat P&T Subs) INH SCH (13:17)
[2024-08-28] MEDS: Ipratropium HFA Inhaler (Combivent Respimat P&T Subs) INH SCH (13:17)
--- NOTE | 2024-08-28 13:48 | Electrocardiogram Report ---
Test Reason : Blood Pressure : */* mmHG Vent. Rate : 82 BPM Atrial Rate : 82 BPM P-R Int : 136 ms QRS Dur : 86 ms QT Int : 394 ms P-R-T Axes : 88 79 78 degrees QTcB Int : 460 ms Normal sinus rhythm Normal ECG When compared with ECG of 16-Dec-2023 12:37, No significant change was found Confirmed by Santos Chinchilla ([id number]) on 08/28/2024 1:48:12 PM Referred By: REFERRED SELF Confirmed By: Santos Chinchilla
--- NOTE | 2024-08-28 16:07 | Communication Note ---
Date of Service: August 28, 2024 Please refer to the H&P dictated earlier this morning for details of presentation on admission. The patient presented with abdominal pain. He has had alcoholic pancreatitis in the past and this feels like a pancreatitis flare. Lipase was elevated in the 1500s range. CT abdomen showed findings suggestive of pancreatitis. He is being treated for pancreatitis with aggressive IV hydration, analgesics, bowel rest. I spoke to the patient and explained to him that he will be given IV narcotics for as long as he has pain. Once his pain resolves, IV narcotics will be discontinued and he will be started on a diet.
[2024-08-28] MEDS: MoRPHine SULFATE 2 MG/ML CARP IV PRN (20:28)
[2024-08-28] MEDS: MAGNESIUM OXIDE 400 MG TAB PO SCH (20:28)
[2024-08-28] MEDS: SENNA 8.6 MG TAB PO SCH (20:31)
[2024-08-29] MEDS: diphenhydrAMINE 2%/ZINC 0.1% CREAM 28.4GM TUBE EXT PRN (00:40)
[2024-08-29 08:46] LABS: Hematocrit (blood only) 37.6 % (42.0-52.0); Hemoglobin 12.8 g/dl (14.0-18.0); Mean Corpuscular Hemoglobin 32.6 pg (25.0-34.0); Mean Corpuscular Volume 95.7 fL (80.0-100.0); Mean Platelet Volume 10.8 fL (9.4-12.4); Platelet Count 244 K/uL (130-400); RDW Coefficient of Variation 14.8 % (11.5-14.5); RDW Standard Deviation 53.1 fL (36.4-46.3); Red Blood Count 3.93 M/uL (4.70-6.10); White Blood Count 10.02 K/ul (4.8-10.8)
[2024-08-29 09:21] LABS: Albumin Level 3.8 gm/dl (3.4-5.0); Bilirubin Direct 0.2 mg/dl (0-0.2); Bilirubin,Total 0.8 mg/dl (0.2-1.0); Creatinine Clr Calc Pharmacy 119.6 ml/min; Potassium 3.7 mmol/L (3.5-5.1); Total Protein 6.3 gm/dl (6.0-8.3)
[2024-08-29] MEDS ORDERED: D5W AND NSS 1,000 ML IV SCH (09:45)
[2024-08-29] MEDS ORDERED: ACETAMINOPHEN 325 MG TAB PO PRN (10:10)
--- NOTE | 2024-08-29 14:34 | Hospitalist Progress Note ---
Date of Service August 29, 2024 Assessment & Plan (1) Pancreatitis: Plan: 64yo male presenting with acute pancreatitis - inflammation noted on CT imaging, elevated [id number]. Patient with history of gallstone pancreatitis in the past. He also drinks EtOH but reports only 3-4 drinks per week now. Pain is improved after Morphine Patient states that his pain is improved today and that he used morphine for headache He wishes to eat Discontinued morphine orders Ordered a clear liquid diet Will continue to advance diet if he tolerates it without pain but if he has pain switch him back to n.p.o. and start narcotics again -AWSS at risk protocol -Continue Thiamine and Folate PO daily (2) COPD (chronic obstructive pulmonary disease): Plan: Chronic. No cough, SOB or wheeze. -Continue Combivent QID (3) Seizure disorder: Plan: Chronic, stable -Maintain seizure precautions -Continue Lamictal 150mg po BID (4) GERD without esophagitis: Plan: Chronic -Protonix 40mg po daily Admission and Anticipated Discharge Date Admission Date: August 28, 2024 Subjective Patient was seen and examined at 9:30 AM. The nurse notified me that his blood sugar was low 53. Noted that the patient used 2 mg of IV morphine this morning. On questioning, he stated that he used it for headache. He denies any abdominal pain at this time. He says that he is hungry. Review of Systems Review of Systems: All systems reviewed & are unremarkable except as noted in Subjective Physical Exam Physical Exam: General: Awake, conversant Heart: S1, S2/regular rate and rhythm, no murmur rubs or gallops Lungs: Clear to auscultation bilaterally. Normal effort Abdomen: Soft/nontender/nondistended. No hepatosplenomegaly Extremities: No clubbing/cyanosis. No edema Behavior: Appropriate, cooperative Results & Data Results & Data Vital Signs (Past 12 Hours) Vital Signs Temp Pulse Resp BP Pulse Ox O2 Del Method 08/29/24 08:55 36.7 C 76 18 128/69 98 Room Air 08/29/24 07:09 82 18 96 Room Air Laboratory Results Abnormal lab results 08/29/24 Range/Units 07:39 RBC 3.93 L (4.70-6.10) M/uL Hgb 12.8 L (14.0-18.0) g/dl Hct 37.6 L (42.0-52.0) % RDW Std Deviation 53.1 H (36.4-46.3) fL RDW Coeff of Brianda 14.8 H (11.5-14.5) % Carbon Dioxide 20 L (21-32) mmol/L Anion Gap 12 H (3-11) Creatinine 0.54 L (0.6-1.4) mg/dl Glucose 53 L* (70-99(Fasting)) mg/dl PG Care Time/CCT Total # of Minutes Spent Total Time Spent with Patient: Total time spent is greater than 50% in coordination of care (as documented) at patient's floor/unit and/or counseling patient: Coding Level of Care Code 56765 SUB INP/OBS CARE 2/35MIN Diagnoses Pancreatitis K85.90 COPD (chronic obstructive pulmonary disease) J44.9 Seizure disorder G40.909 GERD without esophagitis K21.9
[2024-08-29 15:54] VITALS: RESP 18
[2024-08-30 07:27] LABS: BUN Creatinine Ratio 5.3 (10-20); Calcium 9.3 mg/dl (8.6-10.3); Creatinine Clr Calc Pharmacy 113.3 ml/min; Potassium 3.4 mmol/L (3.5-5.1)
--- NOTE | 2024-08-30 13:05 | Hospitalist Progress Note ---
Date of Service August 30, 2024 Assessment & Plan (1) Pancreatitis: Plan: 64yo male presenting with acute pancreatitis - inflammation noted on CT imaging, elevated [id number]. Patient with history of gallstone pancreatitis in the past. He also drinks EtOH but reports only 3-4 drinks per week now. Pain is improved after Morphine Patient states that his pain is improved today and that he used morphine for headache He wishes to eat Discontinued morphine orders Ordered a clear liquid diet. Advance further to a full liquid diet. Improving overall Will continue to advance diet if he tolerates it without pain but if he has pain switch him back to n.p.o. and start narcotics again -AWSS at risk protocol -Continue Thiamine and Folate PO daily (2) COPD (chronic obstructive pulmonary disease): Plan: Chronic. No cough, SOB or wheeze. -Continue Combivent QID (3) Seizure disorder: Plan: Chronic, stable -Maintain seizure precautions -Continue Lamictal 150mg po BID (4) GERD without esophagitis: Plan: Chronic -Protonix 40mg po daily Plan Will advance to a solid diet tomorrow. Likely discharge tomorrow Admission and Anticipated Discharge Date Admission Date: August 28, 2024 Subjective Patient was seen and examined at 9:45 AM. Denies abdominal pain. Tolerated clear liquid diet. Wishes to advance diet. Review of Systems Review of Systems: All systems reviewed & are unremarkable except as noted in Subjective Physical Exam Physical Exam: General: Awake, conversant Heart: S1, S2/regular rate and rhythm, no murmur rubs or gallops Lungs: Clear to auscultation bilaterally. Normal effort Abdomen: Soft/nontender/nondistended. No hepatosplenomegaly Extremities: No clubbing/cyanosis. No edema Behavior: Appropriate, cooperative Results & Data Results & Data Vital Signs (Past 12 Hours) Vital Signs Temp Pulse Resp BP Pulse Ox O2 Del Method 08/30/24 10:53 79 18 98 Room Air 08/30/24 09:16 36.6 C 80 18 156/68 H 97 Room Air 08/30/24 08:45 Room Air 08/30/24 07:35 85 18 97 Room Air PG Care Time/CCT Total # of Minutes Spent Total Time Spent with Patient: Total time spent is greater than 50% in coordination of care (as documented) at patient's floor/unit and/or counseling patient: Coding Level of Care Code 82331 SUB INP/OBS CARE MIN Diagnoses Pancreatitis K85.90 COPD (chronic obstructive pulmonary disease) J44.9 Seizure disorder G40.909 GERD without esophagitis K21.9
[2024-08-30 16:27] VITALS: TEMP 98.8
[2024-08-31 07:56] VITALS: BP 152/92
[2024-08-31 07:56] LABS: BUN Creatinine Ratio 2.9 (10-20); Calcium 9.3 mg/dl (8.6-10.3); Potassium 3.4 mmol/L (3.5-5.1)
[2024-08-31 11:25] VITALS: PULSE 70; O2SAT 99
--- NOTE | 2024-08-31 13:23 | Discharge Summary ---
Date of Service August 31, 2024 Admission HPI Per Admitting Provider Jorge Coronado is a 64yo male with history of HTN, GERD, Seizure disorder and COPD presenting with abdominal pain - epigastric pain ongoing for the last 3 days. Pain is severe and "unbearable". He has had decreased appetite and poor oral intake as well as several episodes of non-bloody vomiting. No report of fever or chills. No chest pain, cough or SOB. No diarrhea. Patient reports drinking infrequently 3-4 drinks/week In the ER he is afebrile, HD stable and non-toxic in appearance Lipase is elevated [place] 1565 CT findings as below ER Course: Morphine Protonix NSS x 2L Admission Exam Per Admitting Provider General: patient resting comfortably, NAD, non-toxic in appearance, AA&O x 4 Skin: back skin dry, erythematous HEENT: NC/AT, PERRL, EOMI, anicteric sclera, conjunctiva without injection, external ear normal to inspection and nontender, nares patent, dry mucus membranes, dentition intact, no oropharyngeal lesions, neck supple, trachea midline, no LAD, no thyromegaly, no JVD Heart: +S1/S2, regular, no m/r/g Lungs: equal air entry bilaterally, no rales/rhonchi/wheezes Abd: +BS, soft, epigastric tenderness, ND, no masses/organomegaly/ascites Ext: warm, 2+ pulses in UE/LE bilaterally, no clubbing/cyanosis or edema Neuro: nonfocal, patient AA&O x 4, speech intact, no facial droop, moving all e xtremities on command with equal strength 5/5 Principal Diagnosis Acute alcoholic pancreatitis Discharge Exam General: Awake, conversant Heart: S1, S2/regular rate and rhythm, no murmur rubs or gallops Lungs: Clear to auscultation bilaterally. Normal effort Abdomen: Soft/nontender/nondistended. No hepatosplenomegaly Extremities: No clubbing/cyanosis. No edema Behavior: Appropriate, cooperative Discharge Data Allergies Allergy/AdvReac Type Severity Reaction Status Date / Time sertraline Allergy Mild Abdominal Verified 06/09/24 11:54 Pain Consultations 08/28/24 05:30 ED Decision to Admit Stat Ordered Studies Abdomen/Pelvis CT 08/28/24 02:26 EXAM: CT abd pelvis IV con only CLINICAL HISTORY: 93 ML OPTIRAY 320, PAIN UPPER ABD, KNOWN GALL STONES TECHNIQUE: Contiguous axial images were obtained from the level of the diaphragm to the pubic symphysis without and with intravenous contrast. Coronal and sagittal reconstructions were likewise performed and indicated to increase the sensitivity for detecting clinically relevant pathology. If IV contrast material had not been administered, the likelihood of detecting abnormalities relevant to the patient's condition would have been substantially decreased. CT scan was performed according to ALARA (as low as reasonable achievable). COMPARISON: None. FINDINGS: The visualized lung bases are clear. The liver is normal in size and attenuation. Few small calcifications are noted involving right, lobe of liver. There is no intra or extrahepatic biliary ductal dilatation. Hepatic vasculature is patent. The gallbladder is present. The spleen, and adrenal glands are unremarkable. Pancreas appears mildly bulky and shows subtle adjacent fat stranding Multiple calcific foci are noted involving pancreas predominantly head and uncinate process. Mild dilatation of main pancreatic duct up to 4 mm The kidneys are normal in size and attenuation. There is no hydronephrosis or perinephric fat stranding. No renal calculi or renal masses are identified. The ureters are normal in caliber and no ureteral calculi are seen. The bladder is normal in contour. Pelvic viscera are unremarkable. No focal or diffuse bowel wall thickening or evidence of bowel obstruction is identified. The appendix is visualized in the right lower quadrant and appears within normal limits. Abdominal and pelvic vasculature is patent. No adenopathy or fluid collections are seen. No aggressive appearing osseous lesions are identified. IMPRESSION: Pancreas appears mildly bulky and shows subtle adjacent fat stranding Multiple calcific foci are noted involving pancreas predominantly head and uncinate process.- possibility of chronic pancreatitis likely. No obvious radio-opaque GB calculi are seen. No obvious cholecystitis. Electronically signed by Danie Hopkins 08-28-2024 05:12 AM Chest X-Ray 08/28/24 02:26 EXAM: XR chest 1V portable CLINICAL HISTORY: ABD PAIN JMF TECHNIQUE: An X-ray image of the chest is obtained in AP projection. COMPARISON: 12/16/2023 FINDINGS: Pulmonary Parenchyma: Lungs are hyperinflated, evident by flattening of the diaphragm, with bilateral prominent bronchovascular markings. No evidence of consolidation, collapse, or focal opacities. No pulmonary nodules are identified. No evidence of pleural effusion or pleural thickening. Heart and Mediastinum: Heart size and shape are normal. No mediastinal widening or masses. No hilar or mediastinal lymphadenopathy. Bony Thorax: Bony thorax appears intact without fractures or deformities. Soft Tissues: Soft tissues overlying the chest wall are unremarkable. IMPRESSION: 1. Hyperinflated lungs with prominent bronchovascular markings may suggest pulmonary emphysema. 2. No interval changes. Electronically signed by Denis Rojo 08-28-2024 04:26 AM 08/28/24 02:26 CT abd pelvis IV con only Stat Hospital Course (1) Pancreatitis: 64yo male presenting with acute pancreatitis - inflammation noted on CT imaging, elevated [id number]. Patient with history of gallstone pancreatitis in the past. He also drinks EtOH but reports only 3-4 drinks per week now. Pain is improved after Morphine Patient was treated conservatively with bowel rest, narcotics, IV fluids His condition improved and his diet was advanced Patient tolerated a solid diet today and is not needing pain medications anymore He has been advised on Complete alcohol cessation (2) COPD (chronic obstructive pulmonary disease): Chronic. No cough, SOB or wheeze. -Continue Combivent QID (3) Seizure disorder: Chronic, stable -Maintain seizure precautions -Continue Lamictal 150mg po BID (4) GERD without esophagitis: Chronic -Protonix 40mg po daily Plan Discharge to home today Total Time Total Time Spent Total Time Spent (In Minutes): 35 Discharge Plan Discharge Items Patient Disposition: Home - Self-Care Reason For Visit: ABDOMINAL PAIN, PANCREATITIS Discharge Diagnosis: Acute alcoholic pancreatitis Activity: Resume your previous activity Non-emergency contact: Primary Care Provider Call non-emergency contact if: you have any medication questions and your symptoms worsen Follow-up/Referrals: Jeff Grimaldo CRNP [Primary Care Provider] - 09/08/24 11:00 am Diet: Regular Addtl Attending Provider Instructions: Advised to follow-up with PCP in 1 week Advised on alcohol cessation Pending Studies at Discharge: No Stand-Alone Forms: My [employer], Smoking Cessation Medications and DC Order Prescriptions: Continued levothyroxine [Synthroid] 25 mcg tablet 25 mcg PO DAILYBB Qty: 90 1RF Combivent Respimat 20-100 mcg/actuation mist 1 puff inhalation QID Qty: 4 5RF pantoprazole 40 mg tablet,delayed release (DR/EC) 40 mg PO DAILY Qty: 30 3RF thiamine HCl (vitamin B1) 100 mg tablet 100 mg PO QAM Qty: 30 4RF folic acid 1 mg tablet 1 mg PO QAM Qty: 90 2RF lamotrigine [Lamictal] 150 mg tablet 150 mg PO BID Qty: 60 5RF cyanocobalamin (vitamin B-12) [Vitamin B-12] 1,000 mcg tablet 1,000 mcg PO DAILY Qty: 30 5RF Rx Instructions: purchase [id number] magnesium oxide 400 mg (241.3 mg magnesium) Tablet 400 mg PO HS Qty: 30 0RF Rx Instructions: OTC Discharge Orders: Discharge Order (Routine); Ordered 08/31/24 Ordered By: Sho Blackburn Admission Data Admit Date/Time: 08/28/24 05:28 Attending Provider: Jennifer Cordon Admit Provider: Jennifer Cordon Primary Care Provider: Jeff Grimaldo Other Providers: Jennifer Cordon Other Interventions: Discharge Summary Assessment (RN) Last Done: 08/31/24 11:48
== END 2024-08-31 13:53 | disposition home or self-care (01) ==
LOC: ED 01:50 → INTOOBSV 05:28 → 3W 05:28

== ENCOUNTER 2024-10-08 15:17 | Observation (INO) ==
--- NOTE | 2024-10-08 16:24 | Emergency Department Note ---
Impression & Plan Pancreatitis Admission ED Provider Note HPI: History obtained from patient. The patient is a 64-year-old gentleman with history of alcoholism, pancreatitis, COPD, seizure disorder, presents the emergency department with a chief complaint of epigastric abdominal pain as well as nausea. Patient states he has not had any vomiting. Patient states that this pain feels similar to pain he has had in the past with pancreatitis. Patient states he does have a history of alcoholism but he has not had a drink since January 2024. On arrival here to the ED the patient is otherwise hemodynamically stable, he appears to be in no acute distress on my initial assessment. ROS: - Per HPI Differential Diagnosis: Acute pancreatitis, acute gastritis, acute cholecystitis, viral gastroenteritis, small bowel obstruction, mesenteric ischemia, amongst other potential pathologies. *Outpatient medications and allergy history reviewed. PE: General: Alert HEENT: Normocephalic, trachea midline Eyes: Extraocular eye movement is intact, no scleral erythema Pulmonary: Clear to auscultation bilaterally, no wheezing Cardio: Regular rate and rhythm GI: Abdomen is soft to palpation, tenderness in the mid abdomen to palpation without guarding or rigidity : No suprapubic tenderness MSK: No evidence of trauma or malformation of the extremities, no edema Skin: No evidence of rash Neuro: Alert, no focal deficits Psychiatric: Cooperative INDEPENDENT INTERPRETATIONS: compliance monitor: (As interpreted by myself): - An order was placed for continuous cardiac monitoring - Patient was noted to be in sinus rhythm with a rate of 82 Interventions provided in ED: -IV morphine, IV Zofran, IV fluid bolus, nicotine patch Medical Decision Making: IV was established and lab work obtained, lab work shows a leukocytosis of 15.89, hemoglobin is normal, platelet count is normal, CMP does not show any evidence of any critical findings, lipase was obtained and is markedly elevated at 1630, CT imaging does show evidence of acute pancreatitis. On my reassessment the patient states he is feeling improved following IV pain medication as well as IV fluids. [facility] hospitalist service was consulted for admission and the patient was placed for admission in stable condition. Consultants/Discussions held with other healthcare providers: -HospitalistDr. Preston Disposition discussion held by myself with: -Patient Diagnosis: 1. Acute appendicitis 2. Elevated lipase 3. Abdominal pain, acute 4. Leukocytosis, acute Disposition: Admission Russell Tran DO Emergency Medicine Past Med/Surg History Problem List (Updated 10/08/24 @ 18:06 by Russell Tran DO) Pancreatitis (Acute) Pancreatitis (Acute) Abdominal pain (Acute) Intermittent claudication Decreased pedal pulses Pulmonary nodule COPD (chronic obstructive pulmonary disease) controlled w/ inhaler use Seizure disorder Chronic cholecystitis Alcoholism in recovery GERD without esophagitis Anxiety Mesial temporal sclerosis Stable per 10/18/22 neuro note Folate deficiency Erectile dysfunction Kidney lesion (Acute) Renal Cyst -CT of Abd noted 02/18/21 first describes 7 mm left renal lesion, hyperdense cyst versus solid renal neoplasm. A nonemergent dedicated renal CT scan or MRI is recommended in follow-up -Renal CT 02/19/21-7 mm left renal lesion in question appeared hyperdense to renal parenchyma on the noncontrast portion of the study and did not demonstrate significant enhancement. This lesion is felt to represent a hyperdense cyst. A 12 month follow-up study would seem prudent. -Renal CT 05/31/21-Stable 9 mm hyperdense/hemorrhagic cyst within the left kidney, There is a 6 mm hypodense lesion within the left kidney which is technically too small to characterize but favors a simple cyst. Tobacco dependence Cricopharyngeal dysphagia Per 08/2022 records- stable; video swallow with cricopharyngeal bar; s/p EGD 07/27/22 with esophageal stenosis which was like cause of the bar seen- s/p dilation- dysphagia improved/resolved Esophageal dysphagia Improved per 08/2022 PCP records Other symptoms and signs involving cognitive functions and awareness Cervical spondylosis Vertebral artery stenosis Per 07/2020 Neck CTA- severe stenosis of the left vertebral artery of the C4 level due to osteophytes Medical History Alcohol abuse Hypothyroidism Hypertension Calculus of pancreatic duct Pancreatic duct obstruction Hx of pleural effusion Marijuana use Hx of aspiration pneumonitis 07/2022- treated with abx Poor historian Hx of seizure disorder Last seizure 08/2021- has not had one since started lamictal (did confirmed 10/27/22 with patient's caregiver that he is taking Lamictal daily) Degenerative disc disease History of pancreatitis (~02/2020) S/p ERCP on 07/16/22 with large gallbladder stone removed. Biliary sphincterectomy and stent placed to be removed in 3 months. Thrombocytopenia Depression Macrocytic anemia Surgical History History of esophagogastroduodenoscopy (EGD) S/P epidural steroid injection History of colonoscopy Status post tooth extraction Hx of neck surgery (05/2018) Family History Aunt Parkinson disease Cerebral aneurysm Mother Cerebral aneurysm Depression Anemia Uncle Cerebral aneurysm Other No family history of adverse response to anesthesia Denies family history of Ovarian cancer Prostate cancer Myocardial infarction Breast cancer Lung cancer Colorectal cancer Social History Smoking Status: Current every day smoker Tobacco Type: Cigarettes Age Started Using Tobacco: 17; packs per day: 1; Cigarettes Per Day: 20 per day- advised; Second Hand Exposure: Yes; Do You Dip or Chew Tobacco: No; Hx Alcohol Use: Yes Alcohol type: wine Alcohol Intake Frequency Comment: fifth of vodka per week Hx Substance Use: Yes Prescribed Medications: Marijuana Last Used Substance: Just Prior to Arrival Last Used Substance Other:: Last night around 1999 Substance Use Type Other:: Daily Preferred Language: [place] Leone[place] Communication Ability: Effective Visual Impairment: No Limitations Hearing Ability: Normal Compliance Monitor Required: No Beliefs That Will Affect Care: None marital status: Single Current Living Situation: Significant Other Current Living Situation Comment: lives in 2 story home with Charmaine ordaz current occupational status: disabled Feels Safe at Home: Yes Childhood Exposure to Second-Hand Smoke: Yes Diet: regular Diet Comment: regular caffeine: No during the past year weight has: remained stable Dental Care, Regularly: No Physical Activity Frequency: Does not Exercise Seatbelt Use: always Sunscreen Use: No Assistive Devices: None Allergies Allergies Allergy/AdvReac Type Severity Reaction Status Date / Time sertraline Allergy Mild Abdominal Verified 10/08/24 18:10 Pain Home Meds Previous Rx's Medication Instructions Recorded cyanocobalamin (vitamin B-12) 1,000 mcg PO DAILY #30 tabs 08/29/22 1,000 mcg tablet (Vitamin B-12) magnesium oxide 400 mg (241.3 mg 400 mg PO HS #30 tabs 12/03/22 magnesium) tablet ipratropium 20 mcg-albuterol 100 1 puff inhalation QID Shortness Of 05/29/24 mcg/actuation mist for inhalation Breath #4 grams (Combivent Respimat) pantoprazole 40 mg tablet,delayed 40 mg PO DAILY #30 tabs 05/29/24 release thiamine HCl (vitamin B1) 100 mg 100 mg PO QAM #30 tabs 06/10/24 tablet folic acid 1 mg tablet 1 mg PO QAM #90 tabs 08/26/24 lamotrigine 150 mg tablet 150 mg PO BID #60 tabs 08/26/24 (Lamictal) levothyroxine 25 mcg tablet 25 mcg PO DAILYBB #90 tabs 09/18/24 (Synthroid) Results & Data (ED) Vital Signs Vital Signs - 24 hr 10/08/24 15:47 10/08/24 16:32 10/08/24 16:32 Temperature 36.9 C Temperature Source Temporal Artery Scan Pulse Rate 95 H 80 Pulse Rate [Apical] 81 Pulse Rhythm [Apical] Regular Pulse Strength [Apical] Normal Respiratory Rate 18 16 Respiratory Effort / Characteristics Non-Labored Spontaneous Non-Labored Respiratory Depth Normal Normal Respiratory Pattern Regular Regular Blood Pressure 132/76 Blood Pressure [Left Arm] 126/67 Blood Pressure Mean 94 Blood Pressure Mean [Left Arm] 86 Blood Pressure Position [Left Arm] Sitting Pulse Oximetry 98 98 Oxygen Delivery Method Room Air Room Air Sepsis Recent Fever Within 48 Hours No Sepsis New/Unexplained Change in Mental Status N/A Sepsis Action Taken by Nursing No Action Required Laboratory Data 10/08/24 16:15 10/08/24 16:15 Lab Results 10/08/24 Range/Units 16:15 WBC 15.89 H (4.8-10.8) K/ul RBC 4.74 (4.70-6.10) M/uL Hgb 15.0 (14.0-18.0) g/dl Hct 44.4 (42.0-52.0) % MCV 93.7 (80.0-100.0) fL MCH 31.6 (25.0-34.0) pg MCHC 33.8 (32.0-36.0) g/dL RDW Std Deviation 47.9 H (36.4-46.3) fL RDW Coeff of Brianda 13.9 (11.5-14.5) % Plt Count 265 (130-400) K/uL MPV 10.2 (9.4-12.4) fL Immature Gran % (Auto) 0.4 % Neut % (Auto) 77.7 % Lymph % (Auto) 11.8 % [place] % (Auto) 9.1 % Eos % (Auto) 0.6 % Baso % (Auto) 0.4 % Neut # (Auto) 12.34 H (1.40-6.50) K/uL Lymph # (Auto) 1.87 (1.20-3.40) K/uL [place] # (Auto) 1.45 H (0.11-0.59) K/uL Eos # (Auto) 0.10 (0.00-0.50) K/uL Baso # (Auto) 0.06 (0.00-0.20) K/uL Immature Gran # (Auto) 0.07 (0.01-0.20) K/uL Sodium 138 (136-145) mmol/L Potassium 3.6 (3.5-5.1) mmol/L Chloride 103 (98-107) mmol/L Carbon Dioxide 29 (21-32) mmol/L Anion Gap 6 (3-11) BUN 11 (6-23) mg/dl Creatinine 0.78 (0.6-1.4) mg/dl Est Cr Clr Drug Dosing 86.1 ml/min eGFR 99.58 BUN/Creatinine Ratio 14.1 (10-20) Glucose 114 H (70-99(Fasting)) mg/dl Calcium 9.8 (8.6-10.3) mg/dl Total Bilirubin 0.6 (0.2-1.0) mg/dl AST 15 (13-39) U/L ALT 10 (7-52) U/L Alkaline Phosphatase 78 (34-104) U/L Total Protein 7.7 (6.0-8.3) gm/dl Albumin 4.6 (3.4-5.0) gm/dl Globulin 3.1 (2.5-4.0) gm/dl Albumin/Globulin Ratio 1.5 (0.9-2) Lipase 1630 H (11-82) U/L Administered Medications Sodium Chloride (Nss) 1,000 mls @ 999 mls/hr IV .Q1H1M ONE Stop: 10/08/24 18:48 Last Admin: 10/08/24 17:52 Dose: 999 mls/hr Documented By: RAFAEL Nicotine (Nicotine 21 Mg/24 Hr Tdsy) 1 patch TD QAM MAKSIM Stop: 11/07/24 17:44 Last Admin: 10/08/24 17:49 Dose: 1 patch Documented By: RAFAEL Discontinued Medications Sodium Chloride (Nss) 1,000 mls @ 999 mls/hr IV .Q1H1M ONE Stop: 10/08/24 17:22 Last Infusion: 10/08/24 17:49 Dose: Infused Documented By: Admin: 10/08/24 16:33 Dose: 999 mls/hr Documented By: RAFAEL Ioversol (Optiray 320 100ml) 94 ml IV ONCE ONE Stop: 10/08/24 17:22 Last Admin: 10/08/24 17:22 Dose: 94 ml Documented By: CARITO Morphine Sulfate (Morphine Sulfate 4 Mg/Ml 1 Ml Carp\Vial) 4 mg IV NOW STA Stop: 10/08/24 16:23 Last Admin: 10/08/24 16:36 Dose: 4 mg Documented By: RAFAEL Ondansetron HCl (Ondansetron Inj 2 Mg/Ml 2 Ml Vial) 4 mg IV NOW STA Stop: 10/08/24 16:23 Last Admin: 10/08/24 16:36 Dose: 4 mg Documented By: RAFAEL Imaging Data Radiologist's Impression: Abdomen/Pelvis CT 10/08/24 16:22 EXAM: CT Abdomen and Pelvis With Intravenous Contrast INDICATION: Abdominal pain. TECHNIQUE: Axial computed tomography images of the abdomen and pelvis with intravenous contrast. Sagittal and coronal reformatted images were created and reviewed. This CT exam was performed using one or more of the following dose reduction techniques: automated exposure control, adjustment of the mA and/or kV according to patient size, and/or use of iterative reconstruction technique. CONTRAST: 94ml of Optiray 320 was administered intravenously. COMPARISON: 08/28/2024 FINDINGS: Limitations: None. Lung bases: No abnormality noted. Pleural space: No visualized pleural effusion or pneumothorax. Heart: No abnormality noted. Mediastinum: No abnormality noted. ABDOMEN: Liver: No abnormality noted. Gallbladder and bile ducts: No calcified stones or surrounding fluid. Pancreas: There is persistent but increased acute pancreatitis most notably involving the head and proximal body. Stable ductal dilatation and chronic parenchymal calcification. There is no pancreatic gas. No surrounding fluid. Spleen: No significant abnormality noted. Adrenals: No significant abnormality noted. Kidneys and ureters: Stable hypodense nodules left kidney. Right kidney appears normal. No stones or hydronephrosis. Stomach and bowel: Moderate amounts of stool throughout the colon and scattered left diverticulosis. No diverticulitis or obstruction. PELVIS: Appendix: Well seen and appears normal. Bladder: No filling defects to suggest mass or large stone. No inflammation. Reproductive: No abnormalities noted. ABDOMEN and PELVIS: Intraperitoneal space: No free air. No significant fluid collection. Bones/joints: Degenerative changes noted throughout the spine. No acute osseous abnormality seen. Soft tissues: No significant abnormality noted. Vasculature: No abdominal aortic aneurysm. Lymph nodes: No pathologically enlarged lymph nodes. IMPRESSION: Slight increase acute on chronic pancreatitis. ACT 112: N/A Electronically signed by Tawny Christopher 10-08-2024 5:40 PM Discharge Plan Visit Data Chief Complaint: Abdominal Pain Stated Complaint: ABD PAIN ED Provider: Russell Tran Discharge Problem: Pancreatitis Forms Stand Alone Forms: [facility] [employer] Prescriptions Prescriptions: No Action Combivent Respimat 20-100 mcg/actuation mist 1 puff inhalation QID Qty: 4 5RF pantoprazole 40 mg tablet,delayed release (DR/EC) 40 mg PO DAILY Qty: 30 3RF thiamine HCl (vitamin B1) 100 mg tablet 100 mg PO QAM Qty: 30 4RF folic acid 1 mg tablet 1 mg PO QAM Qty: 90 2RF lamotrigine [Lamictal] 150 mg tablet 150 mg PO BID Qty: 60 5RF levothyroxine [Synthroid] 25 mcg tablet 25 mcg PO DAILYBB Qty: 90 1RF cyanocobalamin (vitamin B-12) [Vitamin B-12] 1,000 mcg tablet 1,000 mcg PO DAILY Qty: 30 5RF Rx Instructions: purchase [id number] magnesium oxide 400 mg (241.3 mg magnesium) Tablet 400 mg PO HS Qty: 30 0RF Rx Instructions: OTC Referrals Referrals: Jeff Grimaldo CRNP [Primary Care Provider] -
[2024-10-08 16:31] LABS: Basophils # (auto) 0.06 K/uL (0.00-0.20); Basophils % (auto) 0.4 %; Eosinophils % (auto) 0.6 %; Hematocrit (blood only) 44.4 % (42.0-52.0); Immature Granulocytes # (auto) 0.07 K/uL (0.01-0.20); Immature Granulocytes % (auto) 0.4 %; Lymphocytes # (auto) 1.87 K/uL (1.20-3.40); Lymphocytes % (auto) 11.8 %; Mean Corpuscular Hemoglobin 31.6 pg (25.0-34.0); Mean Corpuscular Hgb Conc 33.8 g/dL (32.0-36.0); Mean Corpuscular Volume 93.7 fL (80.0-100.0); Mean Platelet Volume 10.2 fL (9.4-12.4); Monocytes # (auto) 1.45 K/uL (0.11-0.59); Monocytes % (auto) 9.1 %; Neutrophils # (auto) 12.34 K/uL (1.40-6.50); Neutrophils % (auto) 77.7 %; Platelet Count 265 K/uL (130-400); RDW Coefficient of Variation 13.9 % (11.5-14.5); RDW Standard Deviation 47.9 fL (36.4-46.3); Red Blood Count 4.74 M/uL (4.70-6.10); White Blood Count 15.89 K/ul (4.8-10.8)
[2024-10-08] MEDS: SODIUM CHLORIDE 0.9% 1,000 ML IV ONE ×2 (16:33→17:52)
[2024-10-08] MEDS: ONDANSETRON INJ 2 MG/ML 2 ML VIAL IV STA (16:36)
[2024-10-08] MEDS: MoRPHine SULFATE 4 MG/ML 1 ML CARP\\VIAL IV STA (16:36)
[2024-10-08 16:49] LABS: BUN Creatinine Ratio 14.1 (10-20); Calcium 9.8 mg/dl (8.6-10.3); Creatinine Clr Calc Pharmacy 86.1 ml/min; Potassium 3.6 mmol/L (3.5-5.1)
[2024-10-08 16:59] LABS: Albumin Globulin Ratio 1.5 (0.9-2); Albumin Level 4.6 gm/dl (3.4-5.0); Bilirubin,Total 0.6 mg/dl (0.2-1.0); Globulin 3.1 gm/dl (2.5-4.0); Total Protein 7.7 gm/dl (6.0-8.3)
[2024-10-08] MEDS: OPTIRAY 320 100ml IV ONE (17:22)
--- NOTE | 2024-10-08 17:41 | CT Scan Report ---
EXAM: CT Abdomen and Pelvis With Intravenous Contrast INDICATION: Abdominal pain. TECHNIQUE: Axial computed tomography images of the abdomen and pelvis with intravenous contrast. Sagittal and coronal reformatted images were created and reviewed. This CT exam was performed using one or more of the following dose reduction techniques: automated exposure control, adjustment of the mA and/or kV according to patient size, and/or use of iterative reconstruction technique. CONTRAST: 94ml of Optiray 320 was administered intravenously. COMPARISON: 08/28/2024 FINDINGS: Limitations: None. Lung bases: No abnormality noted. Pleural space: No visualized pleural effusion or pneumothorax. Heart: No abnormality noted. Mediastinum: No abnormality noted. ABDOMEN: Liver: No abnormality noted. Gallbladder and bile ducts: No calcified stones or surrounding fluid. Pancreas: There is persistent but increased acute pancreatitis most notably involving the head and proximal body. Stable ductal dilatation and chronic parenchymal calcification. There is no pancreatic gas. No surrounding fluid. Spleen: No significant abnormality noted. Adrenals: No significant abnormality noted. Kidneys and ureters: Stable hypodense nodules left kidney. Right kidney appears normal. No stones or hydronephrosis. Stomach and bowel: Moderate amounts of stool throughout the colon and scattered left diverticulosis. No diverticulitis or obstruction. PELVIS: Appendix: Well seen and appears normal. Bladder: No filling defects to suggest mass or large stone. No inflammation. Reproductive: No abnormalities noted. ABDOMEN and PELVIS: Intraperitoneal space: No free air. No significant fluid collection. Bones/joints: Degenerative changes noted throughout the spine. No acute osseous abnormality seen. Soft tissues: No significant abnormality noted. Vasculature: No abdominal aortic aneurysm. Lymph nodes: No pathologically enlarged lymph nodes. IMPRESSION: Slight increase acute on chronic pancreatitis. ACT 112: N/A Electronically signed by Tawny Christopher 10-08-2024 5:40 PM
[2024-10-08] MEDS: NICOTINE 21 MG/24 HR TDSY TD SCH (17:49)
[2024-10-08 18:16] LABS: Appearance Urine Clear (Clear); Bilirubin Urine Negative (Negative); Blood Urine Negative (Negative); Color Urine Yellow; Glucose Urine UA Negative (Negative); Ketones Urine Negative (Negative); Leukocyte Esterase Urine Negative (Negative); Nitrite Urine Negative (Negative); Protein Urine Negative (Negative); Urobilinogen Urine Negative (Negative)
--- NOTE | 2024-10-08 18:27 | History & Physical Report ---
Date of Service October 08, 2024 Assessment & Plan (1) Pancreatitis: (2) Seizure disorder: (3) Tobacco use disorder: Plan 64-year-old male with recurrent pancreatitis presents to the ER with epigastric pain. #Acute pancreatitis 2 L normal saline bolus given in the ER, will continue IV fluids with LR at 125 mL/h Pain relief with acetaminophen, Toradol, morphine Nausea relief with ondansetron N.p.o. except sips, chips, may advance diet as tolerated Triglycerides historically normal on multiple occasions, no need to repeat Alcohol levels also historically normal and although he admits to prior heavy alcohol use none recently to blame current episode on, next most likely cause is his cannabis use which was discussed with the patient Prior history of pancreatic stones with last MRCP in December 2023 showing "Probable filling defects within the pancreatic duct at the level of the head may reflect stones or debris/sludge". Transferred for possible ERCP however per outside notes gastroenterology felt the stones in the pancreatic ducts likely due to sequelae from chronic pancreatitis and therefore no ERCP was performed at this time. Will consult gastroenterology to determine if further imaging is needed in light of his cessation from alcohol. #Tobacco use Nicotine patch ordered Cessation advised #Seizure disorder Continue lamotrigine #GERD Continue pantoprazole VTE prophylaxis - Lovenox 40 mg SQ daily Diet - NPO, advance diet as tolerated [facility]position [facility] Admission and Anticipated Discharge Date Admission Date: October 08, 2024 History of Present Illness Chief Complaint: Epigastric pain Primary Care Provider: LANDON Paredes Jorge Coronado is a 64-year-old male who presents to the ER with epigastric pain. Epigastric pain severity 10/10 started today around 11:30 AM. Improved with medication given in the emergency room and currently 5/10. No radiation. No exacerbation or alleviating factors. He has a history of repeated episodes of pancreatitis related to alcohol but also with history of pancreatic stones requiring ERCP. Previous heavy drinker but he reports last alcohol drink 2 glasses of champagne around . Allergies Allergy/AdvReac Type Severity Reaction Status Date / Time sertraline Allergy Mild Abdominal Verified 10/08/24 18:10 Pain Home Medications Medication Instructions Recorded Confirmed Type cyanocobalamin (vitamin B-12) 1,000 mcg PO DAILY #30 tabs 08/29/22 10/08/24 Rx 1,000 mcg tablet (Vitamin B-12) magnesium oxide 400 mg (241.3 mg 400 mg PO HS #30 tabs 12/03/22 10/08/24 Rx magnesium) tablet ipratropium 20 mcg-albuterol 100 1 puff inhalation QID Shortness Of 05/29/24 10/08/24 Rx mcg/actuation mist for inhalation Breath #4 grams (Combivent Respimat) pantoprazole 40 mg tablet,delayed 40 mg PO DAILY #30 tabs 05/29/24 10/08/24 Rx release thiamine HCl (vitamin B1) 100 mg 100 mg PO QAM #30 tabs 06/10/24 10/08/24 Rx tablet folic acid 1 mg tablet 1 mg PO QAM #90 tabs 08/26/24 10/08/24 Rx lamotrigine 150 mg tablet 150 mg PO BID #60 tabs 08/26/24 10/08/24 Rx (Lamictal) levothyroxine 25 mcg tablet 25 mcg PO DAILYBB #90 tabs 09/18/24 10/08/24 Rx (Synthroid) Past Med/Surg History Problem List (Updated 10/08/24 @ 21:32 by Regan Preston MD) Tobacco use disorder Pancreatitis (Acute) Pancreatitis (Acute) Abdominal pain (Acute) Intermittent claudication Decreased pedal pulses Pulmonary nodule COPD (chronic obstructive pulmonary disease) controlled w/ inhaler use Seizure disorder Chronic cholecystitis Alcoholism in recovery GERD without esophagitis Anxiety Mesial temporal sclerosis Stable per 10/18/22 neuro note Folate deficiency Erectile dysfunction Kidney lesion (Acute) Renal Cyst -CT of Abd noted 02/18/21 first describes 7 mm left renal lesion, hyperdense cyst versus solid renal neoplasm. A nonemergent dedicated renal CT scan or MRI is recommended in follow-up -Renal CT 02/19/21-7 mm left renal lesion in question appeared hyperdense to renal parenchyma on the noncontrast portion of the study and did not demonstrate significant enhancement. This lesion is felt to represent a hyperdense cyst. A 12 month follow-up study would seem prudent. -Renal CT 05/31/21-Stable 9 mm hyperdense/hemorrhagic cyst within the left kidney, There is a 6 mm hypodense lesion within the left kidney which is technically too small to characterize but favors a simple cyst. Tobacco dependence Cricopharyngeal dysphagia Per 08/2022 records- stable; video swallow with cricopharyngeal bar; s/p EGD 07/27/22 with esophageal stenosis which was like cause of the bar seen- s/p dilation- dysphagia improved/resolved Esophageal dysphagia Improved per 08/2022 PCP records Other symptoms and signs involving cognitive functions and awareness Cervical spondylosis Vertebral artery stenosis Per 07/2020 Neck CTA- severe stenosis of the left vertebral artery of the C4 level due to osteophytes Medical History Alcohol abuse Hypothyroidism Hypertension Calculus of pancreatic duct Pancreatic duct obstruction Hx of pleural effusion Marijuana use Hx of aspiration pneumonitis 07/2022- treated with abx Poor historian Hx of seizure disorder Last seizure 08/2021- has not had one since started lamictal (did confirmed 10/27/22 with patient's caregiver that he is taking Lamictal daily) Degenerative disc disease History of pancreatitis (~02/2020) S/p ERCP on 07/16/22 with large gallbladder stone removed. Biliary sphincterectomy and stent placed to be removed in 3 months. Thrombocytopenia Depression Macrocytic anemia Surgical History History of esophagogastroduodenoscopy (EGD) S/P epidural steroid injection History of colonoscopy Status post tooth extraction Hx of neck surgery (05/2018) Family History Aunt Parkinson disease Cerebral aneurysm Mother Cerebral aneurysm Depression Anemia Uncle Cerebral aneurysm Other No family history of adverse response to anesthesia Denies family history of Ovarian cancer Prostate cancer Myocardial infarction Breast cancer Lung cancer Colorectal cancer Social History Smoking Status: Current every day smoker Tobacco Type: Cigarettes Age Started Using Tobacco: 17; packs per day: 1; Cigarettes Per Day: 20 per day- advised; Second Hand Exposure: Yes; Do You Dip or Chew Tobacco: No; Hx Alcohol Use: Yes Alcohol type: wine Alcohol Intake Frequency Comment: fifth of vodka per week Hx Substance Use: Yes Prescribed Medications: Marijuana Last Used Substance: Just Prior to Arrival Last Used Substance Other:: Last night around 1999 Substance Use Type Other:: Daily Preferred Language: Syrian Communication Ability: Effective Visual Impairment: No Limitations Hearing Ability: Normal Cylinder Checker Required: No Beliefs That Will Affect Care: None marital status: Single Current Living Situation: Significant Other Current Living Situation Comment: lives in 2 story home with Charmaine ordaz current occupational status: disabled Feels Safe at Home: Yes Childhood Exposure to Second-Hand Smoke: Yes Diet: regular Diet Comment: regular caffeine: No during the past year weight has: remained stable Dental Care, Regularly: No Physical Activity Frequency: Does not Exercise Seatbelt Use: always Sunscreen Use: No Assistive Devices: None Review of Systems Review of Systems: All systems reviewed & are unremarkable except as noted in HPI & below Physical Exam Constitutional: WD/WN, vitals as above Respiratory: normal respiratory effort, lungs clear to auscultation Cardiovascular: RRR, no murmur, no edema Gastrointestinal (Abdomen): Percussion/Palpation: + abdomen tender (epigastric), + guarding and abdomen soft; abdomen not rigid Skin: no rashes, warm and dry Neurologic: moves all extremities and awake; not confused Psychiatric: A+Ox3, euthymic affect Results & Data Results & Data Vital Signs (Past 12 Hours) Vital Signs Temp Pulse Pulse Resp BP BP Pulse Ox 10/08/24 18:00 87 20 145/89 H 99 10/08/24 16:32 80 10/08/24 16:32 81 16 126/67 98 10/08/24 15:47 36.9 C 95 H 18 132/76 98 O2 Del Method 10/08/24 18:00 Room Air 10/08/24 16:32 10/08/24 16:32 Room Air 10/08/24 15:47 Room Air Laboratory Results Abnormal lab results 10/08/24 Range/Units 16:15 WBC 15.89 H (4.8-10.8) K/ul RDW Std Deviation 47.9 H (36.4-46.3) fL Neut # (Auto) 12.34 H (1.40-6.50) K/uL [place] # (Auto) 1.45 H (0.11-0.59) K/uL Glucose 114 H (70-99(Fasting)) mg/dl Lipase 1630 H (11-82) U/L All labs reviewed Diagnostic Findings CT Abdomen and Pelvis With Intravenous Contrast INDICATION: Abdominal pain. TECHNIQUE: Axial computed tomography images of the abdomen and pelvis with intravenous contrast. Sagittal and coronal reformatted images were created and reviewed. This CT exam was performed using one or more of the following dose reduction techniques: automated exposure control, adjustment of the mA and/or kV according to patient size, and/or use of iterative reconstruction technique. CONTRAST: 94ml of Optiray 320 was administered intravenously. COMPARISON: 08/28/2024 FINDINGS: Limitations: None. Lung bases: No abnormality noted. Pleural space: No visualized pleural effusion or pneumothorax. Heart: No abnormality noted. Mediastinum: No abnormality noted. ABDOMEN: Liver: No abnormality noted. Gallbladder and bile ducts: No calcified stones or surrounding fluid. Pancreas: There is persistent but increased acute pancreatitis most notably involving the head and proximal body. Stable ductal dilatation and chronic parenchymal calcification. There is no pancreatic gas. No surrounding fluid. Spleen: No significant abnormality noted. Adrenals: No significant abnormality noted. Kidneys and ureters: Stable hypodense nodules left kidney. Right kidney appears normal. No stones or hydronephrosis. Stomach and bowel: Moderate amounts of stool throughout the colon and scattered left diverticulosis. No diverticulitis or obstruction. PELVIS: Appendix: Well seen and appears normal. Bladder: No filling defects to suggest mass or large stone. No inflammation. Reproductive: No abnormalities noted. ABDOMEN and PELVIS: Intraperitoneal space: No free air. No significant fluid collection. Bones/joints: Degenerative changes noted throughout the spine. No acute osseous abnormality seen. Soft tissues: No significant abnormality noted. Vasculature: No abdominal aortic aneurysm. Lymph nodes: No pathologically enlarged lymph nodes. IMPRESSION: Slight increase acute on chronic pancreatitis. Medications Administered ER medications given: Normal saline 1 L bolus Morphine 4 mg IV Ondansetron 4 mg IV Nicotine 21 mg patch Normal saline 1 L bolus ECG Rate (beats per minute): 91 Rhythm: normal sinus Findings: no acute ischemic change Comparison ECG Date: from (August 28, 2024) Change: no significant change Code Status & VTE Plan Code Status DNR/DNI VTE Prophylaxis Plan VTE Prophylaxis will be ordered: Yes PG Care Time/CCT Total # of Minutes Spent Total Time Spent with Patient: Total time spent is greater than 50% in coordination of care (as documented) at patient's floor/unit and/or counseling patient: Coding Level of Care Code 04663 INT INP/OBS CARE 3/75MIN Diagnoses Pancreatitis K85.90 Seizure disorder G40.909 Tobacco use disorder F17.200
[2024-10-08] MEDS ORDERED: MoRPHine SULFATE 2 MG/ML CARP IV PRN (19:25)
[2024-10-08] MEDS ORDERED: ONDANSETRON INJ 2 MG/ML 2 ML VIAL IV PRN (19:25)
[2024-10-08] MEDS: LACTATED RINGER'S 1,000 ML IV SCH (20:08)
[2024-10-08] MEDS ORDERED: IPRATROPIUM BROMIDE/ALBUTEROL respimat INH INH SCH (21:00)
[2024-10-08] MEDS: MAGNESIUM OXIDE 400 MG TAB PO SCH (21:10)
[2024-10-08] MEDS: lamoTRIgine 100 MG TAB PO SCH (21:10)
[2024-10-08] MEDS: lamoTRIgine 25 MG TAB PO SCH (21:10)
[2024-10-08] MEDS: MoRPHine SULFATE 4 MG/ML 1 ML CARP\\VIAL IV PRN (21:18)
--- NOTE | 2024-10-08 22:23 | Electrocardiogram Report ---
Test Reason : Blood Pressure : */* mmHG Vent. Rate : 91 BPM Atrial Rate : 91 BPM P-R Int : 132 ms QRS Dur : 84 ms QT Int : 358 ms P-R-T Axes : 87 79 73 degrees QTcB Int : 440 ms Normal sinus rhythm Normal ECG When compared with ECG of 28-Aug-2024 02:49, No significant change was found Confirmed by Andrea Santiago ([id number]) on 10/08/2024 10:22:28 PM Referred By: Confirmed By: Andrea Santiago
[2024-10-08] MEDS: KETOROLAC TROMETHAMINE 15 MG/ML VIAL IV PRN (23:00)
[2024-10-09] MEDS: LEVOTHYROXINE SODIUM 25 MCG TABLET PO SCH (05:39)
[2024-10-09 06:56] LABS: Basophils # (auto) 0.05 K/uL (0.00-0.20); Basophils % (auto) 0.6 %; Eosinophils # (auto) 0.21 K/uL (0.00-0.50); Eosinophils % (auto) 2.4 %; Hematocrit (blood only) 36.5 % (42.0-52.0); Hemoglobin 12.4 g/dl (14.0-18.0); Immature Granulocytes # (auto) 0.02 K/uL (0.01-0.20); Immature Granulocytes % (auto) 0.2 %; Lymphocytes # (auto) 3.29 K/uL (1.20-3.40); Lymphocytes % (auto) 37.8 %; Mean Corpuscular Hemoglobin 31.5 pg (25.0-34.0); Mean Corpuscular Volume 92.6 fL (80.0-100.0); Mean Platelet Volume 10.5 fL (9.4-12.4); Monocytes % (auto) 10.3 %; Neutrophils # (auto) 4.24 K/uL (1.40-6.50); Neutrophils % (auto) 48.7 %; Platelet Count 224 K/uL (130-400); RDW Coefficient of Variation 13.9 % (11.5-14.5); RDW Standard Deviation 47.4 fL (36.4-46.3); Red Blood Count 3.94 M/uL (4.70-6.10); White Blood Count 8.71 K/ul (4.8-10.8)
[2024-10-09 07:40] LABS: Albumin Globulin Ratio 1.4 (0.9-2); Albumin Level 3.6 gm/dl (3.4-5.0); BUN Creatinine Ratio 12.7 (10-20); Bilirubin,Total 0.8 mg/dl (0.2-1.0); Calcium 8.8 mg/dl (8.6-10.3); Creatinine Clr Calc Pharmacy 107.3 ml/min; Globulin 2.5 gm/dl (2.5-4.0); Magnesium 1.7 mg/dl (1.7-2.4); Potassium 3.7 mmol/L (3.5-5.1); Total Protein 6.1 gm/dl (6.0-8.3)
[2024-10-09] MEDS: Ipratropium HFA Inhaler (Combivent Respimat P&T Subs) INH SCH (07:43)
[2024-10-09] MEDS: Albuterol HFA 8 GM Inhaler (Combivent Respimat P&T Subs) INH SCH (07:44)
[2024-10-09] MEDS: THIAMINE HCL 100 MG TAB PO SCH (07:57)
[2024-10-09] MEDS: CYANOCOBALAMIN (B-12) 500 MCG TABLET PO SCH (07:57)
[2024-10-09] MEDS: PANTOprazole 40 MG TAB PO SCH (07:57)
[2024-10-09] MEDS: FOLIC ACID 1 MG TAB PO SCH (07:58)
[2024-10-09] MEDS: ENOXAPARIN INJ 40 MG/0.4 ML SYR SQ SCH (07:58)
[2024-10-09] MEDS: NICOTINE 14 MG/24 HR PATCH TD SCH (07:59)
--- NOTE | 2024-10-09 08:19 | Gastrointestinal Consultation ---
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 Please call with any acute changes, questions or concerns. Please see addendum below with additional recommendation from my supervising physician. Supervising Physician Co-Signing Physician Notes I saw and examined this patient with our nurse practitioner and agree with her assessment and plan. Clinical picture labs and imaging consistent with known chronic pancreatitis. No clear precipitating factors other than his continued tobacco use. Denies recidivism states sober since March. Continue present regimen with analgesics. Okay to try clear liquids. Continue to monitor LFTs. History of Present Illness Reason for Consultation: pancreatitis Requesting Physician: Dr. Robles Attending Physician: Eder Robles MD History of Present Illness 64 year old male with history of COPD, HTN, GERD, Seizure disorder, ETOH abuse (sober for 1 year), recurrent pancreatitis admitted through the ED w/ abd pain. Pt was seen and evaluated, chart reviewed. Suggests symptoms started rather abruptly yesterday. Midline, upper abd pain - similar to previous episodes of pancreatitis. There was nausea. But no vomiting. No change in bowel habits. WBC 8 Tbili 0.8 AST 12 ALT 7 ALKP 65 Lipase 1630 CTAP 2024: Slight increase acute on chronic pancreatitis. ERCP 2021 Pancreatic stone removed. stents placed in pancreatic duct and bile duct. ERCP 2022 two stents removed. pancreatic stones removed. pancreatic stent plac ed. Allergies Allergy/AdvReac Type Severity Reaction Status Date / Time sertraline Allergy Mild Abdominal Verified 10/08/24 18:10 Pain Home Medications Medication Instructions Recorded Confirmed Type cyanocobalamin (vitamin B-12) 1,000 mcg PO DAILY #30 tabs 08/29/22 10/08/24 Rx 1,000 mcg tablet (Vitamin B-12) magnesium oxide 400 mg (241.3 mg 400 mg PO HS #30 tabs 12/03/22 10/08/24 Rx magnesium) tablet ipratropium 20 mcg-albuterol 100 1 puff inhalation QID Shortness Of 05/29/24 10/08/24 Rx mcg/actuation mist for inhalation Breath #4 grams (Combivent Respimat) pantoprazole 40 mg tablet,delayed 40 mg PO DAILY #30 tabs 05/29/24 10/08/24 Rx release thiamine HCl (vitamin B1) 100 mg 100 mg PO QAM #30 tabs 06/10/24 10/08/24 Rx tablet folic acid 1 mg tablet 1 mg PO QAM #90 tabs 08/26/24 10/08/24 Rx lamotrigine 150 mg tablet 150 mg PO BID #60 tabs 08/26/24 10/08/24 Rx (Lamictal) levothyroxine 25 mcg tablet 25 mcg PO DAILYBB #90 tabs 09/18/24 10/08/24 Rx (Synthroid) Patient History Medical History Alcohol abuse Hypothyroidism Hypertension Calculus of pancreatic duct Pancreatic duct obstruction Hx of pleural effusion Marijuana use Hx of aspiration pneumonitis 07/2022- treated with abx Poor historian Hx of seizure disorder Last seizure 08/2021- has not had one since started lamictal (did confirmed 10/27/22 with patient's caregiver that he is taking Lamictal daily) Degenerative disc disease History of pancreatitis (~02/2020) S/p ERCP on 07/16/22 with large gallbladder stone removed. Biliary sphincterectomy and stent placed to be removed in 3 months. Thrombocytopenia Depression Macrocytic anemia Surgical History History of esophagogastroduodenoscopy (EGD) S/P epidural steroid injection History of colonoscopy Status post tooth extraction Hx of neck surgery (05/2018) Family History Aunt Parkinson disease Cerebral aneurysm Mother Cerebral aneurysm Depression Anemia Uncle Cerebral aneurysm Other No family history of adverse response to anesthesia Denies family history of Ovarian cancer Prostate cancer Myocardial infarction Breast cancer Lung cancer Colorectal cancer Social History Smoking Status: Current every day smoker Tobacco Type: Cigarettes Age Started Using Tobacco: 17; packs per day: 1; Cigarettes Per Day: 1 pack per day; Second Hand Exposure: No; Do You Dip or Chew Tobacco: No; Tobacco Cessation Education Requested by Patient: No Hx Alcohol Use: No Hx Substance Use: Yes Prescribed Medications: Marijuana Last Used Substance: Days (ago) Last Used Substance Other:: Last night around 1999 Substance Use Type Other:: Daily Preferred Language: Lao Communication Ability: Effective Visual Impairment: No Limitations Hearing Ability: Normal Process Trainer Required: No Beliefs That Will Affect Care: None marital status: Single Current Living Situation: Significant Other Current Living Situation Comment: lives in 2 story home with Charmaine ordaz current occupational status: disabled Other Information That Helps Us Care for You: No Feels Safe at Home: Yes Safety Concerns: Feels Safe At This Time Childhood Exposure to Second-Hand Smoke: Yes Diet: regular Diet Comment: regular caffeine: No during the past year weight has: remained stable Dental Care, Regularly: No Physical Activity Frequency: Does not Exercise Seatbelt Use: always Sunscreen Use: No Assistive Devices: Glasses Review of Systems Review of Systems: All other findings negative except as noted in HPI. Physical Exam Constitutional: WD/WN, vitals as above Respiratory: normal respiratory effort, lungs clear to auscultation Cardiovascular: Rate/Rhythm: regular rate and regular rhythm Gastrointestinal (Abdomen): Inspection/Auscultation: normal bowel sounds Percussion/Palpation: + abdomen tender and abdomen soft Skin: no rashes, warm and dry Results & Data Vital Signs (Past 12 Hours) Vital Signs Temp Pulse Resp BP Pulse Ox O2 Del Method 10/09/24 07:45 71 17 97 Room Air 10/09/24 07:19 97.7 F 67 16 145/76 H 97 Room Air Laboratory Results 10/09/24 10/08/24 10/08/24 Range/Units 06:17 17:55 16:15 WBC 8.71 15.89 H (4.8-10.8) K/ul RBC 3.94 L 4.74 (4.70-6.10) M/uL Hgb 12.4 L 15.0 (14.0-18.0) g/dl Hct 36.5 L 44.4 (42.0-52.0) % MCV 92.6 93.7 (80.0-100.0) fL MCH 31.5 31.6 (25.0-34.0) pg MCHC 34.0 33.8 (32.0-36.0) g/dL RDW Std Deviation 47.4 H 47.9 H (36.4-46.3) fL RDW Coeff of Brianda 13.9 13.9 (11.5-14.5) % Plt Count 224 265 (130-400) K/uL MPV 10.5 10.2 (9.4-12.4) fL Immature Gran % (Auto) 0.2 0.4 % Neut % (Auto) 48.7 77.7 % Lymph % (Auto) 37.8 11.8 % [place] % (Auto) 10.3 9.1 % Eos % (Auto) 2.4 0.6 % Baso % (Auto) 0.6 0.4 % Neut # (Auto) 4.24 12.34 H (1.40-6.50) K/uL Lymph # (Auto) 3.29 1.87 (1.20-3.40) K/uL [place] # (Auto) 0.90 H 1.45 H (0.11-0.59) K/uL Eos # (Auto) 0.21 0.10 (0.00-0.50) K/uL Baso # (Auto) 0.05 0.06 (0.00-0.20) K/uL Immature Gran # (Auto) 0.02 0.07 (0.01-0.20) K/uL Sodium 139 138 (136-145) mmol/L Potassium 3.7 3.6 (3.5-5.1) mmol/L Chloride 107 103 (98-107) mmol/L Carbon Dioxide 27 29 (21-32) mmol/L Anion Gap 5 6 (3-11) BUN 8 11 (6-23) mg/dl Creatinine 0.63 0.78 (0.6-1.4) mg/dl Est Cr Clr Drug Dosing 107.3 86.1 ml/min eGFR 106.22 99.58 BUN/Creatinine Ratio 12.7 14.1 (10-20) Glucose 93 114 H (70-99(Fasting)) mg/dl Calcium 8.8 9.8 (8.6-10.3) mg/dl Magnesium 1.7 (1.7-2.4) mg/dl Total Bilirubin 0.8 0.6 (0.2-1.0) mg/dl AST 12 L 15 (13-39) U/L ALT 7 10 (7-52) U/L Alkaline Phosphatase 65 78 (34-104) U/L Total Protein 6.1 D 7.7 (6.0-8.3) gm/dl Albumin 3.6 4.6 (3.4-5.0) gm/dl Globulin 2.5 3.1 (2.5-4.0) gm/dl Albumin/Globulin Ratio 1.4 1.5 (0.9-2) Lipase 1630 H (11-82) U/L Urine Color Yellow Urine Appearance Clear (Clear) Urine pH 6.0 (4.5-7.5) Ur Specific [place] 1.010 (1.000-1.030) Urine Protein Negative (Negative) Urine Glucose (UA) Negative (Negative) Urine Ketones Negative (Negative) Urine Blood Negative (Negative) Urine Nitrite Negative (Negative) Urine Bilirubin Negative (Negative) Urine Urobilinogen Negative (Negative) Ur Leukocyte Esterase Negative (Negative) Hepatitis C Ab Screen Pending PG Care Time/CCT Total # of Minutes Spent Total Time Spent with Patient: Total time spent is greater than 50% in coordination of care (as documented) at patient's floor/unit and/or counseling patient: Coding Level of Care Code 22831 IN/OBS CONSULT LVL 4,60M Diagnoses Pancreatitis K85.90
--- NOTE | 2024-10-09 13:36 | Hospitalist Progress Note ---
Date of Service October 09, 2024 Assessment & Plan (1) Pancreatitis: Plan: Recurrent. He does have a history of previous pancreatitis and pancreatic duct stones and previously had stents in the pancreatic duct. GI consultation and recommendations appreciated. He will be allowed clear liquids if he asks. Continue IV fluids and pain control measures for now (2) Seizure disorder: Plan: Stable. Continue current medical management (3) Tobacco use disorder: Plan: Smoking cessation has been recommended to the patient Plan Anticipate eventual discharge back to home once symptoms resolve Admission and Anticipated Discharge Date Admission Date: October 08, 2024 Subjective Alert and oriented. He still has epigastric pain. Lipase was 1630 on admission and will be followed daily. GI consultation noted. He will be allowed clear liquids if he wants. Continue IV fluids and pain control measures for now. Review of Systems 2 Review of Systems: Constitutionalno fever or chills ENTno blurred vision, no double vision, no epistaxis, no sore throat Respiratoryno cough, no wheezing, no shortness of breath Cardiacno palpitations, no chest pain, no syncope GIepigastric pain and nausea. No vomiting. No melena or hematochezia GUno urinary retention, no urinary incontinence, no dysuria, no hematuria Musculoskeletalno joint pain, no muscle tenderness Skinno bruising, no rashes, no pruritus Neurono isolated weakness, no paresthesia, no weakness Psychdepressed affect Physical Exam 2 Physical Exam: General-alert and oriented x3, no fever, no chills HEENT-head atraumatic and normocephalic, pupils equal and reactive to light, extraocular muscles intact Neck-no lymphadenopathy or thyromegaly, trachea midline Chest-clear to auscultation. No rales, wheezing or rhonchi Cardiac-regular rate and rhythm, normal S1 and S2 Abdomen-hypoactive bowel sounds but present. Tenderness in the epigastric region to palpation. No distention. Extremities-no cyanosis, clubbing, or edema Neuro-cranial nerves II through XII intact, motor and sensory function within normal limits, strength symmetrical, no focal deficits Psych-depressed affect Results & Data Results & Data Vital Signs (Past 12 Hours) Vital Signs Temp Pulse Resp BP Pulse Ox O2 Del Method 10/09/24 10:58 36.5 C 78 16 153/73 H 98 Room Air 10/09/24 10:34 79 16 99 Room Air 10/09/24 07:45 71 17 97 Room Air 10/09/24 07:19 36.5 C 67 16 145/76 H 97 Room Air Laboratory Results 10/09/24 06:17 10/09/24 06:17 PG Care Time/CCT Total # of Minutes Spent Total Time Spent with Patient: Total time spent is greater than 50% in coordination of care (as documented) at patient's floor/unit and/or counseling patient: Coding Level of Care Code 66188 SUB INP/OBS CARE 3/50MIN Diagnoses Pancreatitis K85.90 Seizure disorder G40.909 Tobacco use disorder F17.200
[2024-10-09] MEDS ORDERED: LORazepam 2 MG/1 ML VIAL IV PRN (18:58)
[2024-10-09] MEDS: LACTATED RINGER'S 1,000 ML IV SCH (19:57)
--- NOTE | 2024-10-10 09:18 | Gastroenterology Progress Note ---
Date of Service October 10, 2024 Assessment & Plan (1) Pancreatitis: Plan: 64 year old male with history of COPD, HTN, GERD, Seizure disorder, ETOH abuse (sober for 1 year), recurrent pancreatitis admitted w/ return of upper abd pain, imaging, labs consistent with pancreatitis. He has been tolerating oral intake and wishes to advance diet to low fat No current indication for repeat biliary intervention Antiemetics PRN Analgesia PRN Remain ETOH free Smoking cessation encouraged Management of seizure disorder per primary team Will sign off. Recall as needed. I spent a total of 40 minutes on the date of service in review of patient's record, and previously obtained information in person and appropriate medical visit, discussion and education of plan, with patient and/or caregiver, placing orders for tests/referral/procedures as medically necessary and documentation of pertinent clinical information in patient's medical records for their visit today. Admission and Anticipated Discharge Date Admission Date: October 08, 2024 Supervising Physician Co-Signing Physician Notes I saw and examined this patient with our nurse practitioner and agree with her assessment and plan. Slowly improving less abdominal pain treated by eating. Would continue to advance diet as tolerated. Could consider trial of pancreatic enzymes with meals which may help his pain. Discuss medical therapy to stop his smoking if he is motivated. Tobacco definitely aggravates these episodes of chronic pancreatitis. Subjective Pt was seen and evaluated, chart reviewed. Feeling well. Tolerating oral intake. No abd pain, nausea/vomiting. He tells me had a seizure last evening. Review of Systems Review of Systems: All other findings negative except as noted in HPI. Physical Exam Constitutional: WD/WN, vitals as above Respiratory: normal respiratory effort Cardiovascular: Rate/Rhythm: regular rate Gastrointestinal (Abdomen): normal bowel sounds, soft, nontender, no hepatos plenomegaly Skin: no rashes, warm and dry Results & Data Results & Data Vital Signs (Past 12 Hours) Vital Signs Pulse Resp Pulse Ox O2 Del Method 10/10/24 07:25 68 16 99 Room Air Laboratory Results 10/09/24 Range/Units 06:17 Hepatitis C Ab Screen Negative (Negative) PG Care Time/CCT Total # of Minutes Spent Total Time Spent with Patient: Total time spent is greater than 50% in coordination of care (as documented) at patient's floor/unit and/or counseling patient: Coding Level of Care Code 28009 SUB INP/OBS CARE 2/35MIN Diagnoses Pancreatitis K85.90
[2024-10-10 09:37] LABS: Basophils # (auto) 0.03 K/uL (0.00-0.20); Basophils % (auto) 0.4 %; Eosinophils # (auto) 0.15 K/uL (0.00-0.50); Hematocrit (blood only) 35.3 % (42.0-52.0); Immature Granulocytes # (auto) 0.02 K/uL (0.01-0.20); Immature Granulocytes % (auto) 0.3 %; Lymphocytes % (auto) 35.3 %; Mean Corpuscular Volume 94.1 fL (80.0-100.0); Mean Platelet Volume 10.8 fL (9.4-12.4); Monocytes # (auto) 0.79 K/uL (0.11-0.59); Monocytes % (auto) 10.7 %; Neutrophils # (auto) 3.78 K/uL (1.40-6.50); Neutrophils % (auto) 51.3 %; Platelet Count 211 K/uL (130-400); RDW Coefficient of Variation 14.1 % (11.5-14.5); RDW Standard Deviation 48.8 fL (36.4-46.3); Red Blood Count 3.75 M/uL (4.70-6.10); White Blood Count 7.37 K/ul (4.8-10.8)
[2024-10-10 10:01] LABS: Albumin Globulin Ratio 1.5 (0.9-2); Albumin Level 3.7 gm/dl (3.4-5.0); Bilirubin,Total 0.6 mg/dl (0.2-1.0); Creatinine Clr Calc Pharmacy 100.9 ml/min; Globulin 2.5 gm/dl (2.5-4.0); Potassium 3.3 mmol/L (3.5-5.1); Total Protein 6.2 gm/dl (6.0-8.3)
[2024-10-10] MEDS: POTASSIUM CHLORIDE CRTAB 20 MEQ TABCR PO STA (10:27)
--- NOTE | 2024-10-10 12:41 | Discharge Summary ---
Discharge Summary Date of Service October 10, 2024 Principal Dx & Hospital Course #1 = Principal Diagnosis (1) Pancreatitis: Recurrent. He does have a history of previous pancreatitis and pancreatic duct stones and previously had stents in the pancreatic duct. GI consultation and recommendations appreciated. Diet has been advanced and well-tolerated. IV fluids have been discontinued. (2) Seizure disorder: Stable. Continue current medical management (3) Tobacco use disorder: Smoking cessation has been recommended to the patient Plan Home todayOctober 10 Admission HPI Per Admitting Provider Jorge Coronado is a 64-year-old male who presents to the ER with epigastric melodie n. Epigastric pain severity 05/15 started today around 11:30 AM. Improved with medication given in the emergency room and currently 12/13. No radiation. No exacerbation or alleviating factors. He has a history of repeated episodes of pancreatitis related to alcohol but also with history of pancreatic stones requiring ERCP. Previous heavy drinker but he reports last alcohol drink 2 glasses of champagne around . Discharge Exam General-alert and oriented x3, no fever, no chills HEENT-head atraumatic and normocephalic, pupils equal and reactive to light, extraocular muscles intact Neck-no lymphadenopathy or thyromegaly, trachea midline Chest-clear to auscultation. No rales, wheezing or rhonchi Cardiac-regular rate and rhythm, normal S1 and S2 Abdomen-hypoactive bowel sounds but present. Tenderness in the epigastric region to palpation. No distention. Extremities-no cyanosis, clubbing, or edema Neuro-cranial nerves II through XII intact, motor and sensory function within normal limits, strength symmetrical, no focal deficits Psych-depressed affect Discharge Plan Discharge Items Patient Disposition: Home - Self-Care Reason For Visit: ACUTE PANCREATITIS Discharge Diagnosis: Recurrent acute pancreatitis, hypokalemia Activity: Resume your previous activity Non-emergency contact: Primary Care Provider Call non-emergency contact if: your symptoms worsen Follow-up/Referrals: Jeff Grimaldo CRNP [Primary Care Provider] - Diet: Regular Addtl Attending Provider Instructions: Take tramadol as needed for any recurrent abdominal pain. Follow-up with primary care provider soon as possible Pending Studies at Discharge: No Stand-Alone Forms: My [employer], Smoking Cessation Medications and DC Order Prescriptions: New tramadol 50 mg tablet 50 mg PO Q6H PRN (Reason: pain) Qty: 20 0RF Continued Combivent Respimat 20-100 mcg/actuation mist 1 puff inhalation QID Qty: 4 5RF pantoprazole 40 mg tablet,delayed release (DR/EC) 40 mg PO DAILY Qty: 30 3RF thiamine HCl (vitamin B1) 100 mg tablet 100 mg PO QAM Qty: 30 4RF folic acid 1 mg tablet 1 mg PO QAM Qty: 90 2RF lamotrigine [Lamictal] 150 mg tablet 150 mg PO BID Qty: 60 5RF levothyroxine [Synthroid] 25 mcg tablet 25 mcg PO DAILYBB Qty: 90 1RF cyanocobalamin (vitamin B-12) [Vitamin B-12] 1,000 mcg tablet 1,000 mcg PO DAILY Qty: 30 5RF Rx Instructions: Unable to verify OTC meds at this date/time. magnesium oxide 400 mg (241.3 mg magnesium) Tablet 400 mg PO HS Qty: 30 0RF Rx Instructions: Unable to verify OTC meds at this date/time. Discharge Orders: Discharge Order (Routine); Ordered 10/10/24 Ordered By: Eder Robles Admission Data Admit Date/Time: 10/08/24 18:41 Attending Provider: Eder Robles Admit Provider: Regan Preston Primary Care Provider: Jeff Grimaldo Other Providers: Regan Preston; Florentino Simmons I Hospital Stay Data Consultations 10/08/24 17:52 ED Decision to Admit Stat 10/08/24 21:48 Consult Gastroenterology Routine Diagnostic Imagining Performed 10/08/24 16:22 CT Abd and Pelvis [CT abd pelvis IV con only] Stat Discharge Instructions Given to Patient (Per Discharging Provider) Take tramadol as needed for any recurrent abdominal pain. Follow-up with primary care provider soon as possible Total Time Total Time Spent Total Time Spent (In Minutes): 45 minutes Coding Level of Care Code 33342 INP/OBS DISCH >30 MIN Diagnoses Pancreatitis K85.90 Seizure disorder G40.909 Tobacco use disorder F17.200
--- NOTE | 2024-10-10 13:21 | Hospitalist Progress Note ---
Date of Service October 10, 2024 Assessment & Plan (1) Pancreatitis: Plan: Recurrent. He does have a history of previous pancreatitis and pancreatic duct stones and previously had stents in the pancreatic duct. GI consultation and recommendations appreciated. Diet has been advanced and well-tolerated. IV fluids have been discontinued. Lipase has markedly improved down to 116. Morphine has been discontinued (2) Seizure disorder: Plan: Stable. Continue current medical management (3) Tobacco use disorder: Plan: Smoking cessation has been recommended to the patient Plan Anticipated discharge to home today, October 10, has been canceled per patient request. Will try again tomorrow. Admission and Anticipated Discharge Date Admission Date: October 08, 2024 Subjective Lipase level markedly improved down to 116. He is taking adequate oral intake. Potassium replacement ordered. He was going to go home but then stated he was too ill to leave today. Will try again tomorrow. Morphine has been discontinued. Will use tramadol if needed for any abdominal discomfort. GI consultation appreciated. They signed off the case todayOctober 10 Review of Systems 2 Review of Systems: Constitutionalno fever or chills ENTno blurred vision, no double vision, no epistaxis, no sore throat Respiratoryno cough, no wheezing, no shortness of breath Cardiacno palpitations, no chest pain, no syncope GIepigastric discomfort has lessened. Nausea has resolved. No vomiting. No melena or hematochezia GUno urinary retention, no urinary incontinence, no dysuria, no hematuria Musculoskeletalno joint pain, no muscle tenderness Skinno bruising, no rashes, no pruritus Neurono isolated weakness, no paresthesia, no weakness Psychdepressed affect Physical Exam 2 Physical Exam: General-alert and oriented x3, no fever, no chills HEENT-head atraumatic and normocephalic, pupils equal and reactive to light, extraocular muscles intact Neck-no lymphadenopathy or thyromegaly, trachea midline Chest-clear to auscultation. No rales, wheezing or rhonchi Cardiac-regular rate and rhythm, normal S1 and S2 Abdomen-hypoactive bowel sounds but present. Tenderness in the epigastric region to palpation has improved. He could have chronic epigastric pain in my opinion. No distention. Extremities-no cyanosis, clubbing, or edema Neuro-cranial nerves II through XII intact, motor and sensory function within normal limits, strength symmetrical, no focal deficits Psych-depressed affect Results & Data Results & Data Vital Signs (Past 12 Hours) Vital Signs Temp Pulse Resp BP Pulse Ox O2 Del Method 10/10/24 11:29 68 16 97 Room Air 10/10/24 07:45 36.3 C L 74 18 159/84 H 99 Room Air 10/10/24 07:25 68 16 99 Room Air Laboratory Results 10/10/24 08:51 10/10/24 08:51 PG Care Time/CCT Total # of Minutes Spent Total Time Spent with Patient: Total time spent is greater than 50% in coordination of care (as documented) at patient's floor/unit and/or counseling patient: Coding Level of Care Code 67812 SUB INP/OBS CARE 3/50MIN Diagnoses Pancreatitis K85.90 Seizure disorder G40.909 Tobacco use disorder F17.200
[2024-10-10] MEDS: traMADol HCL 50 MG TABLET PO PRN (13:34)
[2024-10-10] MEDS: ACETAMINOPHEN 1,000 MG/100 ML VIAL IV PRN (15:25)
[2024-10-11 06:50] LABS: Basophils # (auto) 0.04 K/uL (0.00-0.20); Basophils % (auto) 0.5 %; Eosinophils # (auto) 0.18 K/uL (0.00-0.50); Eosinophils % (auto) 2.5 %; Hemoglobin 12.7 g/dl (14.0-18.0); Immature Granulocytes # (auto) 0.02 K/uL (0.01-0.20); Immature Granulocytes % (auto) 0.3 %; Lymphocytes # (auto) 2.11 K/uL (1.20-3.40); Lymphocytes % (auto) 28.9 %; Mean Corpuscular Hemoglobin 31.6 pg (25.0-34.0); Mean Corpuscular Hgb Conc 34.3 g/dL (32.0-36.0); Mean Platelet Volume 10.6 fL (9.4-12.4); Monocytes # (auto) 1.01 K/uL (0.11-0.59); Monocytes % (auto) 13.8 %; Neutrophils # (auto) 3.95 K/uL (1.40-6.50); Platelet Count 223 K/uL (130-400); RDW Coefficient of Variation 13.5 % (11.5-14.5); RDW Standard Deviation 46.4 fL (36.4-46.3); Red Blood Count 4.02 M/uL (4.70-6.10); White Blood Count 7.31 K/ul (4.8-10.8)
[2024-10-11 06:58] VITALS: BP 167/79; RESP 16; TEMP 97.9
[2024-10-11 07:09] LABS: Albumin Globulin Ratio 1.5 (0.9-2); Albumin Level 4.1 gm/dl (3.4-5.0); BUN Creatinine Ratio 8.3 (10-20); Bilirubin,Total 0.7 mg/dl (0.2-1.0); Calcium 9.4 mg/dl (8.6-10.3); Creatinine Clr Calc Pharmacy 93.9 ml/min; Globulin 2.8 gm/dl (2.5-4.0); Potassium 3.8 mmol/L (3.5-5.1); Total Protein 6.9 gm/dl (6.0-8.3)
[2024-10-11 10:52] VITALS: O2SAT 99
--- NOTE | 2024-10-11 11:12 | Discharge Summary ---
Discharge Summary Date of Service October 11, 2024 Principal Dx & Hospital Course #1 = Principal Diagnosis (1) Pancreatitis: Recurrent. He does have a history of previous pancreatitis and pancreatic duct stones and previously had stents in the pancreatic duct. GI consultation and recommendations appreciated. Diet has been advanced and well-tolerated. IV fluids have been discontinued. Lipase has has now normalized. Morphine has been discontinued. Using tramadol on a as needed basis for abdominal pain (2) Seizure disorder: Stable. Continue current medical management (3) Tobacco use disorder: Smoking cessation has been recommended to the patient Plan Home todayOctober 11 Admission HPI Per Admitting Provider Jorge Coronado is a 64-year-old male who presents to the ER with epigastric pain. Epigastric pain severity 10/10 started today around 11:30 AM. Improved with medication given in the emergency room and currently 5/10. No radiation. No exacerbation or alleviating factors. He has a history of repeated episodes of pancreatitis related to alcohol but also with history of pancreatic stones requiring ERCP. Previous heavy drinker but he reports last alcohol drink 2 glasses of champagne around . Discharge Exam General-alert and oriented x3, no fever, no chills HEENT-head atraumatic and normocephalic, pupils equal and reactive to light, extraocular muscles intact Neck-no lymphadenopathy or thyromegaly, trachea midline Chest-clear to auscultation. No rales, wheezing or rhonchi Cardiac-regular rate and rhythm, normal S1 and S2 Abdomen-hypoactive bowel sounds but present. Tenderness in the epigastric region to palpation has improved. He could have chronic epigastric pain in my opinion. No distention. Extremities-no cyanosis, clubbing, or edema Neuro-cranial nerves II through XII intact, motor and sensory function within normal limits, strength symmetrical, no focal deficits Psych-depressed affect Discharge Plan Discharge Items Patient Disposition: Home - Self-Care Reason For Visit: ACUTE PANCREATITIS Discharge Diagnosis: Recurrent acute pancreatitis, hypokalemia Activity: Resume your previous activity Non-emergency contact: Primary Care Provider Call non-emergency contact if: your symptoms worsen Follow-up/Referrals: Jeff Grimaldo CRNP [Primary Care Provider] - 10/15/24 8:20 am Diet: Regular Addtl Attending Provider Instructions: Take tramadol as needed for any recurrent abdominal pain. Follow-up with primary care provider soon as possible Pending Studies at Discharge: No Stand-Alone Forms: My [facility], Pain - Opioid Pain Management, Smoking Cessation Medications and DC Order Prescriptions: New tramadol 50 mg tablet 50 mg PO Q6H PRN (Reason: pain) Qty: 20 0RF Continued Combivent Respimat 20-100 mcg/actuation mist 1 puff inhalation QID Qty: 4 5RF pantoprazole 40 mg tablet,delayed release (DR/EC) 40 mg PO DAILY Qty: 30 3RF thiamine HCl (vitamin B1) 100 mg tablet 100 mg PO QAM Qty: 30 4RF folic acid 1 mg tablet 1 mg PO QAM Qty: 90 2RF lamotrigine [Lamictal] 150 mg tablet 150 mg PO BID Qty: 60 5RF levothyroxine [Synthroid] 25 mcg tablet 25 mcg PO DAILYBB Qty: 90 1RF cyanocobalamin (vitamin B-12) [Vitamin B-12] 1,000 mcg tablet 1,000 mcg PO DAILY Qty: 30 5RF Rx Instructions: Unable to verify OTC meds at this date/time. magnesium oxide 400 mg (241.3 mg magnesium) Tablet 400 mg PO HS Qty: 30 0RF Rx Instructions: Unable to verify OTC meds at this date/time. Discharge Orders: Discharge Order (Routine); Ordered 10/11/24 Ordered By: Eder Bhardwaj/Other Patient Handouts: Understanding Pancreatitis, Pancreatitis Acute Dc Admission Data Admit Date/Time: 10/08/24 18:41 Attending Provider: Eder Robles Admit Provider: Regan Preston Primary Care Provider: Jeff Grimaldo Other Providers: Regan Preston; Florentino Simmons I Hospital Stay Data Consultations 10/08/24 17:52 ED Decision to Admit Stat 10/08/24 21:48 Consult Gastroenterology Routine Diagnostic Imagining Performed 10/08/24 16:22 CT Abd and Pelvis [CT abd pelvis IV con only] Stat Pending Results Patient Have Any Pending Studies at Discharge: No Discharge Instructions Given to Patient (Per Discharging Provider) Take tramadol as needed for any recurrent abdominal pain. Follow-up with primary care provider soon as possible Total Time Total Time Spent Total Time Spent (In Minutes): 45 minutes Coding Level of Care Code 33166 INP/OBS DISCH >30 MIN Diagnoses Pancreatitis K85.90 Seizure disorder G40.909 Tobacco use disorder F17.200
[2024-10-11 12:28] VITALS: PULSE 83
== END 2024-10-11 14:02 | disposition home or self-care (01) ==
LOC: ED 15:17 → SUATTDRO 18:41 → INTOOBSV 18:41 → EDINP 18:41 → 3W 19:25

== ENCOUNTER 2025-04-17 14:59 | Inpatient (IN) ==
[2025-04-17] MEDS: KETOROLAC TROMETHAMINE 15 MG/ML VIAL IV STA (15:34)
[2025-04-17] MEDS: ONDANSETRON INJ 2 MG/ML 2 ML VIAL IV STA (15:34)
[2025-04-17] MEDS: SODIUM CHLORIDE 0.9% 1,000 ML IV ONE (15:35)
[2025-04-17 15:51] LABS: Hematocrit (blood only) 44.5 % (42.0-52.0); Hemoglobin 15.3 g/dl (14.0-18.0); Immature Granulocytes # (auto) 0.07 K/uL (0.01-0.20); Immature Granulocytes % (auto) 0.4 %; Mean Corpuscular Hemoglobin 31.4 pg (25.0-34.0); Mean Corpuscular Volume 91.4 fL (80.0-100.0); Platelet Count 322 K/uL (130-400); RDW Standard Deviation 47.6 fL (36.4-46.3); Red Blood Count 4.87 M/uL (4.70-6.10); White Blood Count 15.99 K/ul (4.8-10.8)
[2025-04-17 16:08] LABS: Alanine Aminotransferase 7.0 U/L (7-52); Alkaline Phosphatase 99.0 U/L (34-104); Anion Gap 9.0 (3-11); Bilirubin,Total 0.6 mg/dl (0.2-1.0); Blood Urea Nitrogen 9.0 mg/dl (6-23); Calcium 9.5 mg/dl (8.6-10.3); Carbon Dioxide 26.0 mmol/L (21-32); Chloride 102.0 mmol/L (98-107); Creatinine Clr Calc Pharmacy 103.4 ml/min; Glucose 120.0 mg/dl (70-99(Fasting)); Lipase 154.0 U/L (11-82); Potassium 3.9 mmol/L (3.5-5.1); Sodium 137.0 mmol/L (136-145); Total Protein 7.3 gm/dl (6.0-8.3)
--- NOTE | 2025-04-17 16:13 | XRay Report ---
Technique: 3 views of the chest and abdomen were obtained Findings: There are no confluent pulmonary infiltrates. The heart size is within normal limits. No pleural effusion or pneumothorax is seen. There is no definite pulmonary nodule. There are old healed right rib fractures. There is a cervical fusion There is lumbar scoliosis and degenerative disc disease. There is mild constipation. There is no sign of bowel obstruction. No definite renal or ureteral calculi are seen. No foreign body is evident Impression: 1. No pulmonary infiltrate 2. Mild constipation Electronically signed by Garo Marshall 04-17-2025 4:12 PM
[2025-04-17 16:25] LABS: INR 0.9 (0.9-1.1); Partial Thromboplastin Time 27 Seconds (21-31); Prothrombin Time 10.3 Seconds (9.0-12.0)
[2025-04-17] MEDS: OPTIRAY 320 100ml IV ONE (16:28)
--- NOTE | 2025-04-17 16:31 | Emergency Department Note ---
History of Present Illness General Chief Complaint: Abdominal Pain Stated Complaint: ABD PAIN, PANCREAS Time Seen by Provider: 04/17/25 15:16 History of Present Illness Provider Complaint: abdominal pain Onset (ago): 1 day(s) Pain Consistency: constant Radiation: epigastric Severity: moderate Maximum Pain Intensity: 8 Current Pain Intensity: 8 Quality: + stabbing and + sharp Relieved By: + nothing Exacerbated By: + nothing Context: + history of similar episodes (Pancreatitis); no foreign travel, no possible food poisoning, no sick contacts, no recent antibiotic use, no recent surgery/procedure or no recent injury Associated Symptoms: + nausea and + vomiting; no diarrhea, no fever, no chills, no constipation, no dysuria, no hematemesis, no hematochezia, no melena, no hematuria, no syncope, no headache, no chest pain and no breathing difficulty Home Medications Medication Instructions Recorded Confirmed Type cyanocobalamin (vitamin B-12) 1,000 mcg PO DAILY #30 tabs 08/29/22 04/17/25 Rx 1,000 mcg tablet (Vitamin B-12) magnesium oxide 400 mg (241.3 mg 400 mg PO HS #30 tabs 12/03/22 04/17/25 Rx magnesium) tablet ipratropium 20 mcg-albuterol 100 1 puff inhalation QID Shortness Of 05/29/24 04/17/25 Rx mcg/actuation mist for inhalation Breath #4 grams (Combivent Respimat) folic acid 1 mg tablet 1 mg PO QAM #90 tabs 08/26/24 04/17/25 Rx thiamine HCl (vitamin B1) 100 mg 100 mg PO QAM #30 tabs 11/12/24 04/17/25 Rx tablet lamotrigine 200 mg tablet 200 mg PO BID #60 tabs 12/12/24 04/17/25 Rx pantoprazole 40 mg tablet,delayed 40 mg PO DAILY #30 tabs 02/09/25 04/17/25 Rx release duloxetine 60 mg capsule,delayed 60 mg PO DAILY #90 caps 03/16/25 04/17/25 Rx release levothyroxine 25 mcg tablet 25 mcg PO DAILYBB #90 tabs 03/25/25 04/17/25 Rx (Synthroid) cholecalciferol (vitamin D3) 25 25 mcg PO DAILY #30 caps 03/27/25 04/17/25 Rx mcg (1,000 unit) capsule Allergies Allergy/AdvReac Type Severity Reaction Status Date / Time sertraline Allergy Mild Abdominal Verified 03/16/25 12:04 Pain Past Med/Surg History Problem List (Updated 04/17/25 @ 18:08 by Ayush Poole MD) PAD (peripheral artery disease) Prediabetes Pancreatitis (Acute) Decreased pedal pulses Pulmonary nodule COPD (chronic obstructive pulmonary disease) controlled w/ inhaler use GERD without esophagitis Anxiety Mesial temporal sclerosis Stable per 10/18/22 neuro note Folate deficiency Erectile dysfunction Kidney lesion (Acute) Renal Cyst -CT of Abd noted 02/18/21 first describes 7 mm left renal lesion, hyperdense cyst versus solid renal neoplasm. A nonemergent dedicated renal CT scan or MRI is recommended in follow-up -Renal CT 02/19/21-7 mm left renal lesion in question appeared hyperdense to renal parenchyma on the noncontrast portion of the study and did not demonstrate significant enhancement. This lesion is felt to represent a hyperdense cyst. A 12 month follow-up study would seem prudent. -Renal CT 05/31/21-Stable 9 mm hyperdense/hemorrhagic cyst within the left kidney, There is a 6 mm hypodense lesion within the left kidney which is technically too small to characterize but favors a simple cyst. Tobacco dependence Cricopharyngeal dysphagia Per 08/2022 records- stable; video swallow with cricopharyngeal bar; s/p EGD 07/27/22 with esophageal stenosis which was like cause of the bar seen- s/p dilation- dysphagia improved/resolved Esophageal dysphagia Improved per 08/2022 PCP records Cervical spondylosis Vertebral artery stenosis Per 07/2020 Neck CTA- severe stenosis of the left vertebral artery of the C4 level due to osteophytes Medical History Intermittent claudication Chronic cholecystitis Alcoholism in recovery Tobacco use disorder Seizure disorder Alcohol abuse Hypothyroidism Hypertension Calculus of pancreatic duct Pancreatic duct obstruction Hx of pleural effusion Marijuana use Hx of aspiration pneumonitis 07/2022- treated with abx Poor historian Hx of seizure disorder Last seizure 08/2021- has not had one since started lamictal (did confirmed 10/27/22 with patient's caregiver that he is taking Lamictal daily) Degenerative disc disease History of pancreatitis (~02/2020) S/p ERCP on 07/16/22 with large gallbladder stone removed. Biliary sphincterectomy and stent placed to be removed in 3 months. Thrombocytopenia Depression Macrocytic anemia Surgical History History of esophagogastroduodenoscopy (EGD) 10/19/20 [facility] S/P epidural steroid injection History of colonoscopy Status post tooth extraction Hx of neck surgery (05/2018) cervical fusion (C2-C3?) Full ROM Family History Aunt Parkinson disease Cerebral aneurysm Mother Cerebral aneurysm Depression Anemia Uncle Cerebral aneurysm Other No family history of adverse response to anesthesia Denies family history of Ovarian cancer Prostate cancer Myocardial infarction Breast cancer Lung cancer Colorectal cancer Social History Smoking Status: Current every day smoker Tobacco Type: Cigarettes Age Started Using Tobacco: 17; packs per day: 1; Cigarettes Per Day: 1 pack per day; Second Hand Exposure: No; Do You Dip or Chew Tobacco: No; Hx Alcohol Use: No Hx Substance Use: Yes Prescribed Medications: Marijuana Last Used Substance: Days (ago) Last Used Substance Other:: Last night around 1999 Substance Use Type Other:: Daily Preferred Language: Bahamian Communication Ability: Effective Visual Impairment: No Limitations Hearing Ability: Normal 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: No Beliefs That Will Affect Care: None marital status: Single Current Living Situation: Significant Other Current Living Situation Comment: lives in 2 story home with Charmaine ordaz current occupational status: disabled Feels Safe at Home: Yes Childhood Exposure to Second-Hand Smoke: Yes Diet: regular Diet Comment: regular caffeine: No during the past year weight has: remained stable Dental Care, Regularly: No Physical Activity Frequency: Does not Exercise Seatbelt Use: always Sunscreen Use: No Assistive Devices: Cane and Walker Physical Exam 2 Vital Signs: Vital Signs - 24 hr 04/17/25 15:09 04/17/25 16:36 04/17/25 17:15 Temperature 36.3 C L Temperature Source Temporal Artery Sc an Pulse Rate 113 H 101 H Pulse Rate [Apical ] 97 H Pulse Rate from Sp O2 Sensor 101 H Respiratory Rate 17 21 18 Respiratory Effort / Characteristics Non-Labored Respiratory Depth Normal Blood Pressure 135/85 Blood Pressure [Ri ght Arm] 161/85 H Blood Pressure Beatrice n 101 Blood Pressure Beatrice n [Right Arm] 110 Pulse Oximetry 98 99 99 Oxygen Delivery Me thod Room Air Room Air Sepsis Recent Feve r Within 48 Hours No Sepsis New/Unexpla ined Change in Men camille Status N/A Sepsis Action Take n by Nursing No Action Required Physical Exam: Physical Exam GENERAL: oriented to person, place, and time. appears well-developed and well- nourished. She does not appear distressed. HENT: Exam performed. -Head: Normocephalic and atraumatic. -Right Ear: External ear normal. No mastoid erythema -Left Ear: External ear normal. No mastoid erythema -Mouth/Throat: The oropharynx is clear and moist. No trismus in the jaw. No dental abscesses or uvula swelling. No oropharyngeal exudate or tonsillar abscesses. EYES: Conjunctivae and EOM are normal.Right eye exhibits no discharge. Left eye exhibits no discharge. No scleral icterus. NECK: Normal range of motion. Neck supple. No JVD present. No tracheal deviation and normal range of motion present. CV: Normal rate, regular rhythm, normal heart sounds and intact distal pulses. There is no peripheral edema. Palpable radial pulses bue. PULM/CHEST: Effort normal and breath sounds normal. No respiratory distress. No stridor. no wheezes.no rales. -Chest Wall: no tenderness to palpation ABD: The abdomen is soft. Bowel sounds are normal. no distension. No mass is present. There is tenderness to palpation of the epigastric area. There is no rebound, no guarding, no Ray's sign and no tenderness at McBurney's point. Rovsig negative MUSC/SKEL: Normal range of motion. There is no peripheral edema, tenderness or deformity. NEURO: Motor and sensation grossly intact. SKIN: Skin is warm and dry. not diaphoretic. PSYCH: normal mood and affect. Behavior is normal. Judgment and thought content normal. Course Course 151: The patient was evaluated in room D4. A complete history and physical exam was performed Cardiac monitoring: An order was placed for continuous cardiac monitoring. The monitor shows a rate of 70 with sinus arrhythmia interpreted by me 1705: Vital signs stable. Labs show mildly elevated lipase. Imaging shows acute on chronic pancreatitis. Patient will be treated with additional analgesia and [facility]. Administered Medications Sodium Chloride (Nss) 1,000 mls @ 125 mls/hr IV .Q8H MAKSIM Stop: 04/20/25 17:14 Last Admin: 04/17/25 17:34 Dose: 125 mls/hr Documented By: LORETO Discontinued Medications Sodium Chloride (Nss) 1,000 mls @ 999 mls/hr IV .Q1H1M ONE Stop: 04/17/25 16:22 Last Infusion: 04/17/25 16:36 Dose: Infused Documented By: Admin: 04/17/25 15:35 Dose: 999 mls/hr Documented By: WILLIAM Ioversol (Optiray 320 100ml) 93 ml IV ONCE ONE Stop: 04/17/25 16:29 Last Admin: 04/17/25 16:28 Dose: 93 ml Documented By: JED Ketorolac Tromethamine (Ketorolac Tromethamine 15 Mg/Ml Vial) 15 mg IV NOW STA Stop: 04/17/25 15:23 Last Admin: 04/17/25 15:34 Dose: 15 mg Documented By: WILLIAM Morphine Sulfate (Morphine Sulfate 4 Mg/Ml 1 Ml Carp\Vial) 4 mg IV NOW STA Stop: 04/17/25 17:09 Last Admin: 04/17/25 17:34 Dose: 4 mg Documented By: LORETO Ondansetron HCl (Ondansetron Inj 2 Mg/Ml 2 Ml Vial) 4 mg IV NOW STA Stop: 04/17/25 15:23 Last Admin: 04/17/25 15:34 Dose: 4 mg Documented By: WILLIAM Medical Decision Making Laboratory Data Attestation: I reviewed the patient's lab results. 04/17/25 15:40 04/17/25 15:40 Lab Results 04/17/25 04/17/25 Range/Units 15:40 17:35 WBC 15.99 H (4.8-10.8) K/ul RBC 4.87 (4.70-6.10) M/uL Hgb 15.3 (14.0-18.0) g/dl Hct 44.5 (42.0-52.0) % MCV 91.4 (80.0-100.0) fL MCH 31.4 (25.0-34.0) pg MCHC 34.4 (32.0-36.0) g/dL RDW Std Deviation 47.6 H (36.4-46.3) fL RDW Coeff of Brianda 14.2 (11.5-14.5) % Plt Count 322 (130-400) K/uL MPV 10.0 (9.4-12.4) fL Immature Gran % (Auto) 0.4 % Neut % (Auto) 78.9 % Lymph % (Auto) 13.6 % [place] % (Auto) 6.7 % Eos % (Auto) 0.1 % Baso % (Auto) 0.3 % Neut # (Auto) 12.61 H (1.40-6.50) K/uL Lymph # (Auto) 2.18 (1.20-3.40) K/uL [place]vier # (Auto) 1.07 H (0.11-0.59) K/uL Eos # (Auto) 0.01 (0.00-0.50) K/uL Baso # (Auto) 0.05 (0.00-0.20) K/uL Immature Gran # (Auto) 0.07 (0.01-0.20) K/uL PT 10.3 (9.0-12.0) Seconds INR 0.9 (0.9-1.1) APTT 27 (21-31) Seconds PTT Ratio 1.0 Sodium 137 (136-145) mmol/L Potassium 3.9 (3.5-5.1) mmol/L Chloride 102 (98-107) mmol/L Carbon Dioxide 26 (21-32) mmol/L Anion Gap 9 (3-11) BUN 9 (6-23) mg/dl Creatinine 0.65 (0.6-1.4) mg/dl Est Cr Clr Drug Dosing 103.4 ml/min eGFR 104.57 BUN/Creatinine Ratio 13.8 (10-20) Glucose 120 H (70-99(Fasting)) mg/dl Calcium 9.5 (8.6-10.3) mg/dl Total Bilirubin 0.6 (0.2-1.0) mg/dl Direct Bilirubin 0.1 (0-0.2) mg/dl AST 14 (13-39) U/L ALT 7 (7-52) U/L Alkaline Phosphatase 99 (34-104) U/L Total Protein 7.3 (6.0-8.3) gm/dl Albumin 4.1 (3.4-5.0) gm/dl Lipase 154 H (11-82) U/L Urine Color Yellow Urine Appearance Cloudy A (Clear) Urine pH >= 9.0 H (4.5-7.5) Ur Specific [place] 1.030 (1.000-1.030) Urine Protein Negative (Negative) Urine Glucose (UA) Negative (Negative) Urine Ketones Negative (Negative) Urine Blood Negative (Negative) Urine Nitrite Negative (Negative) Urine Bilirubin Negative (Negative) Urine Urobilinogen Negative (Negative) Ur Leukocyte Esterase Negative (Negative) Urine WBC (Auto) 0-5 (0-5) /hpf Urine RBC (Auto) 0-2 (0-2) /hpf U Hyaline Cast (Auto) 0-2 (0-2) /lpf U Epithel Cells (Auto) 0-2 (0-2) /hpf Urine Bacteria (Auto) None Seen (None Seen) Urine Comment Imaging Data Attestation: I personally reviewed and interpreted this imaging study as follows: My Impression: Acute abdominal series: Chest x-ray negative. Airway clear. No pneumothorax. No consolidation. No cardiomegaly or cephalization.. No free air under the diaphragm. No fractures of the skeletal structures. Nonspecific bowel gas pattern no air-fluid levels. Radiologist's Impression: Chest/Abdomen X-ray 04/17/25 15:30 Technique: 3 views of the chest and abdomen were obtained Findings: There are no confluent pulmonary infiltrates. The heart size is within normal limits. No pleural effusion or pneumothorax is seen. There is no definite pulmonary nodule. There are old healed right rib fractures. There is a cervical fusion There is lumbar scoliosis and degenerative disc disease. There is mild constipation. There is no sign of bowel obstruction. No definite renal or ureteral calculi are seen. No foreign body is evident Impression: 1. No pulmonary infiltrate 2. Mild constipation Electronically signed by Garo Marshall 04-17-2025 4:12 PM Abdomen/Pelvis CT 04/17/25 15:55 Clinical History: Epigastric pain Technique: Axial computed tomography images were obtained of the abdomen and pelvis after the administration of intravenous contrast. Comparison is made to the prior CT dated 01/29/2025 Findings: The liver is overall of normal size, attenuation, and contour with no sign of cirrhosis or significant fatty infiltration. No liver mass lesion is seen. The portal vein is patent. The gallbladder appears unremarkable. No bile duct dilatation is noted. The spleen is of normal size. No focal splenic lesion is evident. There are multifocal pancreatic calcifications, consistent with chronic pancreatitis. The pancreatic duct is at the upper limit of normal in caliber. There is mild soft tissue stranding adjacent to the pancreatic body, concerning for mild acute pancreatitis. The adrenal glands appear unremarkable. No definite renal or proximal ureteral calculi are seen on this contrast-enhanced study. There is no hydronephrosis or perinephric stranding. There is an unchanged 9 mm hyperdense lesion in the posterior left kidney. There are small left renal cyst, measuring up to 1 cm. The aorta is of normal caliber. No abdominal adenopathy is seen. There is a small umbilical hernia containing only fat. There are apparent food particles within the stomach. No clear gastric wall thickening is seen. There is no sign of small bowel obstruction. The colon appears unremarkable. The appendix appears normal also. No free intraperitoneal fluid or air is identified. No distal ureteral or bladder calculi are seen. No bladder mass lesion is evident. The iliac arteries are of normal caliber. No pelvic adenopathy is noted. The lungs bases appear clear. Mild thoracolumbar degenerative disc disease is seen. There is right worse than left hip osteoarthritis. No fracture is identified. No focal osseous lesion is seen Impression: 1. Suspected mild acute pancreatitis 2. Unchanged chronic pancreatitis 3. Unchanged small hyperdense left renal lesion, indeterminate in nature but likely a benign proteinaceous or hemorrhagic cyst. A follow-up renal protocol abdominal CT with and without contrast could be obtained, as a renal mass cannot be excluded 4. Left renal cysts ACT 112: Positive. There are findings on this exam that require communication between the performing entity and the patient following Patient Test Result Information Act ([place] ACT 112) guidelines. Electronically signed by Garo Marshall 04-17-2025 4:59 PM ECG Data Attestation: I personally reviewed and interpreted this ECG as follows: Rate (beats per minute): 74 Rhythm: normal sinus Findings: no ST depression, no ST elevation or no prolonged QT MDM Narrative 1516: The patient was evaluated in room D4. A complete history and physical exam was performed Cardiac monitoring: An order was placed for continuous cardiac monitoring. The monitor shows a rate of 70 with sinus arrhythmia interpreted by me 1705: Vital signs stable. Labs show mildly elevated lipase. Imaging shows acute on chronic pancreatitis. Patient will be treated with additional analgesia and IV fluids admitted to the [facility] hospitalist team. Impression & Plan Pancreatitis Discharge Plan Visit Data Chief Complaint: Abdominal Pain Stated Complaint: ABD PAIN, PANCREAS ED Provider: Ayush Poole Discharge Problem: Pancreatitis Patient Disposition: Admitted As Inpatient Condition: Fair Forms Stand Alone Forms: My [facility] Prescriptions Prescriptions: No Action Combivent Respimat 20-100 mcg/actuation mist 1 puff inhalation QID Qty: 4 5RF folic acid 1 mg tablet 1 mg PO QAM Qty: 90 2RF thiamine HCl (vitamin B1) 100 mg tablet 100 mg PO QAM Qty: 30 4RF pantoprazole 40 mg tablet,delayed release (DR/EC) 40 mg PO DAILY Qty: 30 3RF levothyroxine [Synthroid] 25 mcg tablet 25 mcg PO DAILYBB Qty: 90 1RF cholecalciferol (vitamin D3) 25 mcg (1,000 unit) capsule 25 mcg PO DAILY Qty: 30 0RF Patient Comments: 04/17- otc unable to verify cyanocobalamin (vitamin B-12) [Vitamin B-12] 1,000 mcg tablet 1,000 mcg PO DAILY Qty: 30 5RF Patient Comments: 04/17- otc unable to verify duloxetine 60 mg capsule,delayed release(DR/EC) 60 mg PO DAILY Qty: 90 2RF lamotrigine 200 mg tablet 200 mg PO BID Qty: 60 5RF magnesium oxide 400 mg (241.3 mg magnesium) Tablet 400 mg PO HS Qty: 30 0RF Patient Comments: 04/17- otc unable to verify Referrals Referrals: Jeff Grimaldo CRNP [Primary Care Provider] - Discharge Problem: Pancreatitis Qualifiers: Chronicity: acute Pancreatitis type: unspecified pancreatitis type Acute pancreatitis complication: unspecified Qualified Code(s): K85.90 - Acute pancreatitis without necrosis or infection, unspecified
--- NOTE | 2025-04-17 16:59 | CT Scan Report ---
Clinical History: Epigastric pain Technique: Axial computed tomography images were obtained of the abdomen and pelvis after the administration of intravenous contrast. Comparison is made to the prior CT dated 01/29/2025 Findings: The liver is overall of normal size, attenuation, and contour with no sign of cirrhosis or significant fatty infiltration. No liver mass lesion is seen. The portal vein is patent. The gallbladder appears unremarkable. No bile duct dilatation is noted. The spleen is of normal size. No focal splenic lesion is evident. There are multifocal pancreatic calcifications, consistent with chronic pancreatitis. The pancreatic duct is at the upper limit of normal in caliber. There is mild soft tissue stranding adjacent to the pancreatic body, concerning for mild acute pancreatitis. The adrenal glands appear unremarkable. No definite renal or proximal ureteral calculi are seen on this contrast-enhanced study. There is no hydronephrosis or perinephric stranding. There is an unchanged 9 mm hyperdense lesion in the posterior left kidney. There are small left renal cyst, measuring up to 1 cm. The aorta is of normal caliber. No abdominal adenopathy is seen. There is a small umbilical hernia containing only fat. There are apparent food particles within the stomach. No clear gastric wall thickening is seen. There is no sign of small bowel obstruction. The colon appears unremarkable. The appendix appears normal also. No free intraperitoneal fluid or air is identified. No distal ureteral or bladder calculi are seen. No bladder mass lesion is evident. The iliac arteries are of normal caliber. No pelvic adenopathy is noted. The lungs bases appear clear. Mild thoracolumbar degenerative disc disease is seen. There is right worse than left hip osteoarthritis. No fracture is identified. No focal osseous lesion is seen Impression: 1. Suspected mild acute pancreatitis 2. Unchanged chronic pancreatitis 3. Unchanged small hyperdense left renal lesion, indeterminate in nature but likely a benign proteinaceous or hemorrhagic cyst. A follow-up renal protocol abdominal CT with and without contrast could be obtained, as a renal mass cannot be excluded 4. Left renal cysts ACT 112: Positive. There are findings on this exam that require communication between the performing entity and the patient following Patient Test Result Information Act ([place] ACT 112) guidelines. Electronically signed by Garo Marshall 04-17-2025 4:59 PM
--- NOTE | 2025-04-17 17:22 | History & Physical Report ---
Date of Service April 17, 2025 Assessment & Plan (1) Pancreatitis: (2) COPD (chronic obstructive pulmonary disease): (3) Seizure disorder: (4) PAD (peripheral artery disease): Plan This patient is a 65-year-old male with a history of recurrent pancreatitis, former alcohol use disorder, prediabetes, depression/anxiety disorder, GERD, mesial temporal sclerosis and seizure disorder, folate deficiency, renal cysts, current smoker, cricopharyngeal dysphagia, vertebral artery stenosis secondary to cervical spondylosis, COPD, hypothyroidism, HTN presents to the ED with 1 day of epigastric abdominal pain that feels exactly like his previous episodes of pancreatitis. In the ED, he was found to have an elevated lipase, normal LFTs, a significant leukocytosis at 16, and evidence of acute on chronic pancreatitis on CT A/P. He was given IV Toradol, IV morphine, IV Zofran, and IV fluids. He will be admitted for acute pancreatitis. #Acute on chronic pancreatitis/former alcohol use disorder/GERD-no longer drinking alcohol. Chronic pancreatitis puts him at risk for recurrent acute pancreatitis. Has a history of an abnormal HIDA scan in 12/2023 with evidence of gallbladder dysfunction. Calcium level normal, triglycerides previously normal, LFTs normal, gallbladder normal and CT without bile duct dilatation. Previous MRCP in 12/2023 with dilated pancreatic duct and filling defects in the pancreatic duct-he was transferred out for ERCP at that time and repeat MRCP did not show any pancreatic duct stones and no procedure was performed. GI at [place] thought the MRCP was likely more consistent with the sequela of chronic pancreatitis. - Admit to medical/surgical unit - Keep n.p.o. except can take pills with small sips, maintain IV fluids with LR at 200 mL/h - Follow CBC, CMP, lipase, magnesium, and check triglycerides in the morning - Pain control with IV morphine, Toradol, IV acetaminophen - IV Zofran as needed for nausea - Would consult GI if not improving with conservative measures or LFTs become abnormal-if so, would obtain MRCP - Continue PPI but make IV #Seizure disorder/mesial temporal sclerosis-no acute issues - Continue home Lamictal #Depression/anxiety disorder-no acute issues - Continue home duloxetine #Prediabetes-no acute issues, thought to have prediabetes secondary to pancreatic insufficiency. HgbA1c 5.6% in 10/2024 - Monitor venous glucose on morning labs and if becomes elevated, would add BSG's and NovoLog sliding scale #HTN/HLD-no acute issues and is not currently on medication for either of these conditions #COPD/current smoker-mild obstructive disease on recent spirometry - Encourage smoking cessation, can use nicotine patch if needed - Combivent inhaler as needed #Hypothyroidism-last TSH normal 1 year ago - Check TSH in the morning - Continue home levothyroxine DVT Proph-SQ Lovenox, SCDs Dispo-admit to medical/surgical unit History of Present Illness Chief Complaint: Abdominal pain Primary Care Provider: LANDON Paredes This patient is a 65-year-old male with a history of recurrent pancreatitis, former alcohol use disorder, prediabetes, depression/anxiety disorder, GERD, mesial temporal sclerosis and seizure disorder, folate deficiency, renal cysts, current smoker, cricopharyngeal dysphagia, vertebral artery stenosis secondary to cervical spondylosis, COPD, hypothyroidism, HTN presents to the ED with 1 day of epigastric abdominal pain that feels exactly like his previous episodes of pancreatitis. He had 1 episode of nausea with vomiting last night. Last bowel movement was yesterday. He has been more constipated in the last week since he started taking vitamin D supplementation. In the ED, he was found to have an elevated lipase, normal LFTs, a significant leukocytosis at 16, and evidence of acute on chronic pancreatitis on CT A/P. He was given IV Toradol, IV morphine, IV Zofran, and IV fluids. He will be admitted for acute pancreatitis. Allergies Allergy/AdvReac Type Severity Reaction Status Date / Time sertraline Allergy Mild Abdominal Verified 03/16/25 12:04 Pain Home Medications Medication Instructions Recorded Confirmed Type cyanocobalamin (vitamin B-12) 1,000 mcg PO DAILY #30 tabs 08/29/22 04/17/25 Rx 1,000 mcg tablet (Vitamin B-12) magnesium oxide 400 mg (241.3 mg 400 mg PO HS #30 tabs 12/03/22 04/17/25 Rx magnesium) tablet ipratropium 20 mcg-albuterol 100 1 puff inhalation QID Shortness Of 05/29/24 04/17/25 Rx mcg/actuation mist for inhalation Breath #4 grams (Combivent Respimat) folic acid 1 mg tablet 1 mg PO QAM #90 tabs 08/26/24 04/17/25 Rx thiamine HCl (vitamin B1) 100 mg 100 mg PO QAM #30 tabs 11/12/24 04/17/25 Rx tablet lamotrigine 200 mg tablet 200 mg PO BID #60 tabs 12/12/24 04/17/25 Rx pantoprazole 40 mg tablet,delayed 40 mg PO DAILY #30 tabs 02/09/25 04/17/25 Rx release duloxetine 60 mg capsule,delayed 60 mg PO DAILY #90 caps 03/16/25 04/17/25 Rx release levothyroxine 25 mcg tablet 25 mcg PO DAILYBB #90 tabs 03/25/25 04/17/25 Rx (Synthroid) cholecalciferol (vitamin D3) 25 25 mcg PO DAILY #30 caps 03/27/25 04/17/25 Rx mcg (1,000 unit) capsule Past Med/Surg History Problem List (Updated 04/17/25 @ 18:08 by Ayush Poole MD) PAD (peripheral artery disease) Prediabetes Pancreatitis (Acute) Decreased pedal pulses Pulmonary nodule COPD (chronic obstructive pulmonary disease) controlled w/ inhaler use GERD without esophagitis Anxiety Mesial temporal sclerosis Stable per 10/18/22 neuro note Folate deficiency Erectile dysfunction Kidney lesion (Acute) Renal Cyst -CT of Abd noted 02/18/21 first describes 7 mm left renal lesion, hyperdense cyst versus solid renal neoplasm. A nonemergent dedicated renal CT scan or MRI is recommended in follow-up -Renal CT 02/19/21-7 mm left renal lesion in question appeared hyperdense to renal parenchyma on the noncontrast portion of the study and did not demonstrate significant enhancement. This lesion is felt to represent a hyperdense cyst. A 12 month follow-up study would seem prudent. -Renal CT 05/31/21-Stable 9 mm hyperdense/hemorrhagic cyst within the left kidney, There is a 6 mm hypodense lesion within the left kidney which is technically too small to characterize but favors a simple cyst. Tobacco dependence Cricopharyngeal dysphagia Per 08/2022 records- stable; video swallow with cricopharyngeal bar; s/p EGD 07/27/22 with esophageal stenosis which was like cause of the bar seen- s/p dilation- dysphagia improved/resolved Esophageal dysphagia Improved per 08/2022 PCP records Cervical spondylosis Vertebral artery stenosis Per 07/2020 Neck CTA- severe stenosis of the left vertebral artery of the C4 level due to osteophytes Medical History Intermittent claudication Chronic cholecystitis Alcoholism in recovery Tobacco use disorder Seizure disorder Alcohol abuse Hypothyroidism Hypertension Calculus of pancreatic duct Pancreatic duct obstruction Hx of pleural effusion Marijuana use Hx of aspiration pneumonitis 07/2022- treated with abx Poor historian Hx of seizure disorder Last seizure 08/2021- has not had one since started lamictal (did confirmed 10/27/22 with patient's caregiver that he is taking Lamictal daily) Degenerative disc disease History of pancreatitis (~02/2020) S/p ERCP on 07/16/22 with large gallbladder stone removed. Biliary sphincterectomy and stent placed to be removed in 3 months. Thrombocytopenia Depression Macrocytic anemia Surgical History History of esophagogastroduodenoscopy (EGD) 10/19/20 [facility] S/P epidural steroid injection History of colonoscopy Status post tooth extraction Hx of neck surgery (05/2018) cervical fusion (C2-C3?) Full ROM Family History Aunt Parkinson disease Cerebral aneurysm Mother Cerebral aneurysm Depression Anemia Uncle Cerebral aneurysm Other No family history of adverse response to anesthesia Denies family history of Ovarian cancer Prostate cancer Myocardial infarction Breast cancer Lung cancer Colorectal cancer Social History Smoking Status: Current every day smoker Tobacco Type: Cigarettes Age Started Using Tobacco: 17; packs per day: 1; Cigarettes Per Day: 1 pack per day; Second Hand Exposure: No; Do You Dip or Chew Tobacco: No; Hx Alcohol Use: No Hx Substance Use: Yes Prescribed Medications: Marijuana Last Used Substance: Days (ago) Last Used Substance Other:: Last night around 1999 Substance Use Type Other:: Daily Preferred Language: Nicaraguan Communication Ability: Effective Visual Impairment: No Limitations Hearing Ability: Normal Administrative Support Clerk Required: No Beliefs That Will Affect Care: None marital status: Single Current Living Situation: Significant Other Current Living Situation Comment: lives in [address] with Charmaine ordaz current occupational status: disabled Feels Safe at Home: Yes Childhood Exposure to Second-Hand Smoke: Yes Diet: regular Diet Comment: regular caffeine: No during the past year weight has: remained stable Dental Care, Regularly: No Physical Activity Frequency: Does not Exercise Seatbelt Use: always Sunscreen Use: No Assistive Devices: Cane and Walker Review of Systems Review of Systems: All systems reviewed & are unremarkable except as noted in HPI & below Physical Exam Constitutional: WD/WN, vitals as above Eyes: + anicteric sclerae Neck: trachea midline, no thyromegaly Respiratory: normal respiratory effort, lungs clear to auscultation Cardiovascular: RRR, no murmur, no edema Vessels: femoral pulses present and dorsalis pedis pulses present Chest (Breasts): Chest: normal inspection of chest Gastrointestinal (Abdomen): Inspection/Auscultation: abdomen normal to inspection and normal bowel sounds; abdomen not distended Percussion/Palpation: + abdomen tender (In epigastric region without guarding or rebound) and abdomen soft; no guarding Musculoskeletal: Extremities: extremities normal to inspection; no cyanosis and no clubbing Skin: no rashes, warm and dry Neurologic: moves all extremities and awake; no focal motor deficits Psychiatric: A+Ox3, euthymic affect Lymphatic: no lymphedema Results & Data Results & Data Vital Signs (Past 12 Hours) Vital Signs Temp Pulse Pulse Resp BP BP Pulse Ox 04/17/25 17:15 97 H 18 161/85 H 99 04/17/25 16:36 101 H 21 99 04/17/25 15:09 36.3 C L 113 H 17 135/85 98 O2 Del Method 04/17/25 17:15 Room Air 04/17/25 16:36 04/17/25 15:09 Room Air Laboratory Results CBC, PT/PTT/INR, CMP, lipase reviewed Diagnostic Findings CT abdomen/pelvis, CXR and abdominal x-ray reviewed ECG Additional Comments: ECG on 04/17/2025 at 1533 with sinus rhythm with marked sinus arrhythmia, rate 74, some subtle nonspecific ST changes in inferolateral leads unchanged from previous Code Status & VTE Plan Code Status DNR/DNI VTE Prophylaxis Plan VTE Prophylaxis will be ordered: Yes PG Care Time/CCT Total # of Minutes Spent Total Time Spent with Patient: Total time spent is greater than 50% in coordination of care (as documented) at patient's floor/unit and/or counseling patient: Coding Level of Care Code 37904 INT INP/OBS CARE MIN Diagnoses Pancreatitis K85.90 COPD (chronic obstructive pulmonary disease) J44.9 Seizure disorder G40.909 PAD (peripheral artery disease) I73.9
[2025-04-17] MEDS: MoRPHine SULFATE 4 MG/ML 1 ML CARP\\VIAL IV STA (17:34)
[2025-04-17] MEDS: SODIUM CHLORIDE 0.9% 1,000 ML IV SCH (17:34)
[2025-04-17 17:56] LABS: Appearance Urine Cloudy (Clear); Bacteria Urine Automated None Seen (None Seen); Cast Urine Automated 0-2 /lpf (0-2); Epithelial Cell Urine Auto 0-2 /hpf (0-2); Glucose Urine UA Negative (Negative); RBC Urine Automated 0-2 /hpf (0-2); WBC Urine Automated 0-5 /hpf (0-5)
[2025-04-17] MEDS ORDERED: IPRATROPIUM BROMIDE/ALBUTEROL respimat INH INH PRN (20:53)
[2025-04-17] MEDS ORDERED: MoRPHine SULFATE 2 MG/ML CARP IV PRN (20:53)
[2025-04-17] MEDS ORDERED: Ipratropium HFA Inhaler (Combivent Respimat P&T Subs) INH PRN (21:07)
[2025-04-17] MEDS: MoRPHine SULFATE 4 MG/ML 1 ML CARP\\VIAL IV PRN (21:29)
[2025-04-17] MEDS: lamoTRIgine 100 MG TAB PO SCH (22:29)
[2025-04-17] MEDS: LACTATED RINGER'S 1,000 ML IV SCH (22:29)
[2025-04-17] MEDS: ENOXAPARIN INJ 40 MG/0.4 ML SYR SQ SCH (22:29)
[2025-04-18] MEDS: ACETAMINOPHEN 1,000 MG/100 ML VIAL IV PRN (00:05)
[2025-04-18] MEDS: NICOTINE 14 MG/24 HR PATCH TD SCH (04:10)
--- NOTE | 2025-04-18 05:54 | Electrocardiogram Report ---
Test Reason : Blood Pressure : */* mmHG Vent. Rate : 74 BPM Atrial Rate : 74 BPM P-R Int : 130 ms QRS Dur : 84 ms QT Int : 392 ms P-R-T Axes : 83 76 81 degrees QTcB Int : 435 ms Sinus rhythm with marked sinus arrhythmia Nonspecific ST abnormality Abnormal ECG When compared with ECG of 29-Jan-2025 18:09, No significant change was found Confirmed by Hugo Busch ([id number]) on 04/18/2025 5:54:29 AM Referred By: Confirmed By: Hugo Busch
[2025-04-18] MEDS: LEVOTHYROXINE SODIUM 25 MCG TABLET PO SCH (06:03)
[2025-04-18 07:16] LABS: Hematocrit (blood only) 35.9 % (42.0-52.0); Hemoglobin 12.0 g/dl (14.0-18.0); Immature Granulocytes # (auto) 0.03 K/uL (0.01-0.20); Immature Granulocytes % (auto) 0.3 %; Mean Corpuscular Hemoglobin 30.9 pg (25.0-34.0); Mean Corpuscular Volume 92.5 fL (80.0-100.0); Platelet Count 249 K/uL (130-400); RDW Standard Deviation 48.8 fL (36.4-46.3); Red Blood Count 3.88 M/uL (4.70-6.10); White Blood Count 11.22 K/ul (4.8-10.8)
[2025-04-18 07:39] LABS: Alanine Aminotransferase 6.0 U/L (7-52); Albumin Globulin Ratio 1.3 (0.9-2); Alkaline Phosphatase 77.0 U/L (34-104); Anion Gap 4.0 (3-11); Bilirubin,Total 0.7 mg/dl (0.2-1.0); Blood Urea Nitrogen 8.0 mg/dl (6-23); Calcium 8.4 mg/dl (8.6-10.3); Carbon Dioxide 27.0 mmol/L (21-32); Chloride 108.0 mmol/L (98-107); Creatinine Clr Calc Pharmacy 114.8 ml/min; Globulin 2.4 gm/dl (2.5-4.0); Glucose 84.0 mg/dl (70-99(Fasting)); Lipase 71.0 U/L (11-82); Magnesium 1.6 mg/dl (1.7-2.4); Potassium 3.9 mmol/L (3.5-5.1); Sodium 139.0 mmol/L (136-145); Total Protein 5.6 gm/dl (6.0-8.3); Triglycerides 92.0 mg/dl (0-150)
[2025-04-18 07:52] LABS: Thyroid Stimulating Hormone 4.69 uIu/ml (0.300-4.500)
[2025-04-18] MEDS: KETOROLAC TROMETHAMINE 15 MG/ML VIAL IV PRN (08:32)
[2025-04-18] MEDS: PANTOprazole 40 MG/10 ML SYR IV SCH (08:34)
[2025-04-18] MEDS ORDERED: REMOVE NICODERM PATCH SCH (08:59)
[2025-04-18] MEDS ORDERED: HYDROmorphone INJ 0.5 MG/0.5 ML SYR IV PRN ×2 (09:27→09:33)
[2025-04-18] MEDS ORDERED: HYDROmorphone INJ 1 MG/ML SYRINGE IV PRN (09:27)
[2025-04-18] MEDS: MAGNESIUM SULFATE / D5W 1 GM/100 ML BAG IV SCH (09:27)
--- NOTE | 2025-04-18 09:33 | Hospitalist Progress Note ---
Date of Service April 18, 2025 Assessment & Plan (1) Pancreatitis: (2) Leukocytosis: (3) Constipation: (4) COPD (chronic obstructive pulmonary disease): Plan This patient is a 65-year-old male with a history of recurrent pancreatitis, former alcohol use disorder, prediabetes, depression/anxiety disorder, GERD, mesial temporal sclerosis and seizure disorder, folate deficiency, renal cysts, current smoker, cricopharyngeal dysphagia, vertebral artery stenosis secondary to cervical spondylosis, COPD, hypothyroidism, HTN presents to the ED with 1 day of epigastric abdominal pain that feels exactly like his previous episodes of pancreatitis. In the ED, he was found to have an elevated lipase, normal LFTs, a significant leukocytosis at 16, and evidence of acute on chronic pancreatitis on CT A/P. He is admitted for acute pancreatitis. #Acute on chronic pancreatitis/leukocytosis/former alcohol use disorder/GERD/constipation-no longer drinking alcohol. Chronic pancreatitis puts him at risk for recurrent acute pancreatitis. Has a history of an abnormal HIDA scan in 12/2023 with evidence of gallbladder dysfunction. Calcium level normal, triglycerides here are normal, LFTs remain normal, gallbladder normal and CT without bile duct dilatation. Previous MRCP in 12/2023 with dilated pancreatic duct and filling defects in the pancreatic duct-he was transferred out for ERCP at that time and repeat MRCP did not show any pancreatic duct sto joe and no procedure was performed. GI at [place] thought the MRCP was likely more consistent with the sequela of chronic pancreatitis. No improvement yet, still with severe epigastric pain. Lipase back to normal, leukocytosis improving, and H&H now appropriately diluted - Keep n.p.o. except can take pills with small sips, add ice chips - Maintain IV fluids with LR but decrease to 100 mL/h to avoid volume overload - Follow CBC, CMP, lipase, magnesium again in the morning - Continue pain control but changed to IV Dilaudid 0.5 mg IV Q 4 hours as needed moderate pain and 1 mg IV every 4 hours as needed severe pain, continue IV Toradol, IV acetaminophen as needed - IV Zofran as needed for nausea - Would consult GI if not improving with conservative measures or LFTs become abnormal-if so, would obtain MRCP - Continue PPI IV while n.p.o. - Add Doxy 100 mg p.o. twice daily for constipation, encouraged ambulation once pain is controlled #Seizure disorder/mesial temporal sclerosis-no acute issues - Continue home Lamictal #Depression/anxiety disorder-no acute issues - Continue home duloxetine #Prediabetes-no acute issues, thought to have prediabetes secondary to pancreatic insufficiency. HgbA1c 5.6% in 10/2024 - Monitor venous glucose on morning labs and if becomes elevated, would add BSG's and NovoLog sliding scale #HTN/HLD-no acute issues and is not currently on medication for either of these conditions #COPD/current smoker-mild obstructive disease on recent spirometry, no acute issues - Encourage smoking cessation, can use nicotine patch if needed - Combivent inhaler as needed #Hypothyroidism-last TSH normal 1 year ago and here is only minimally elevated at 4.69 in the setting of acute illness - Continue home dose of levothyroxine and follow as an outpatient DVT Proph-SQ Lovenox, SCDs Dispo-continued stay on medical/surgical unit Admission and Anticipated Discharge Date Admission Date: April 17, 2025 Subjective Patient continues to have epigastric abdominal pain and reports the morphine is not helping. He also took Toradol which does not help. No nausea or vomiting. No bowel movement in at least a couple of days-feels constipated. No other concerns Physical Exam Constitutional: WD/WN, vitals as above Eyes: + anicteric sclerae Neck: trachea midline, no thyromegaly Respiratory: normal respiratory effort, lungs clear to auscultation Cardiovascular: RRR, no murmur, no edema Gastrointestinal (Abdomen): Inspection/Auscultation: abdomen normal to inspection and normal bowel sounds; abdomen not distended Percussion/Palpation: + abdomen tender (In epigastric region without guarding or rebound) and abdomen soft; no guarding Musculoskeletal: Extremities: extremities normal to inspection; no cyanosis and no clubbing Skin: no rashes, warm and dry Neurologic: moves all extremities and awake; no focal motor deficits Psychiatric: A+Ox3, euthymic affect Lymphatic: no lymphedema Results & Data Results & Data Vital Signs (Past 12 Hours) Vital Signs Temp Pulse Resp BP Pulse Ox O2 Del Method 04/18/25 07:41 Room Air 04/18/25 06:53 37.1 C 86 16 136/78 95 Room Air 04/17/25 22:53 Room Air Laboratory Results CBC, CMP, lipase, TSH, magnesium reviewed PG Care Time/CCT Total # of Minutes Spent Total Time Spent with Patient: Total time spent is greater than 50% in coordination of care (as documented) at patient's floor/unit and/or counseling patient: Coding Level of Care Code 39075 SUB INP/OBS CARE 2MIN Diagnoses Pancreatitis K85.90 Acute pancreatitis complication: unspecified Chronicity: acute Pancreatitis type: unspecified pancreatitis type Leukocytosis D72.829 Constipation K59.00 COPD (chronic obstructive pulmonary disease) J44.9 (1) Pancreatitis Acute pancreatitis complication: unspecified Chronicity: acute Pancreatitis type: unspecified pancreatitis type Qualified Code(s): K85.90 - Acute pancreatitis without necrosis or infection, unspecified
[2025-04-18] MEDS: DOCUSATE SODIUM 100 MG CAP PO SCH (09:39)
[2025-04-18] MEDS: HYDROmorphone INJ 1 MG/ML SYRINGE IV PRN (09:40)
[2025-04-18] MEDS: Albuterol HFA 8 GM Inhaler (Combivent Respimat P&T Subs) INH PRN (13:04)
[2025-04-18] MEDS: ONDANSETRON INJ 2 MG/ML 2 ML VIAL IV PRN (20:48)
[2025-04-19 07:11] LABS: Hematocrit (blood only) 32.5 % (42.0-52.0); Hemoglobin 11.5 g/dl (14.0-18.0); Immature Granulocytes # (auto) 0.08 K/uL (0.01-0.20); Immature Granulocytes % (auto) 0.5 %; Mean Corpuscular Hemoglobin 32.7 pg (25.0-34.0); Mean Corpuscular Volume 92.3 fL (80.0-100.0); Platelet Count 194 K/uL (130-400); RDW Standard Deviation 46.8 fL (36.4-46.3); Red Blood Count 3.52 M/uL (4.70-6.10); White Blood Count 15.70 K/ul (4.8-10.8)
[2025-04-19 07:53] LABS: Alanine Aminotransferase 7.0 U/L (7-52); Albumin Globulin Ratio 1.3 (0.9-2); Alkaline Phosphatase 77.0 U/L (34-104); Anion Gap 6.0 (3-11); Bilirubin,Total 0.9 mg/dl (0.2-1.0); Blood Urea Nitrogen 8.0 mg/dl (6-23); Calcium 8.4 mg/dl (8.6-10.3); Carbon Dioxide 26.0 mmol/L (21-32); Chloride 103.0 mmol/L (98-107); Creatinine Clr Calc Pharmacy 125.4 ml/min; Globulin 2.5 gm/dl (2.5-4.0); Glucose 80.0 mg/dl (70-99(Fasting)); Lipase 92.0 U/L (11-82); Magnesium 1.7 mg/dl (1.7-2.4); Potassium 3.5 mmol/L (3.5-5.1); Sodium 135.0 mmol/L (136-145); Total Protein 5.7 gm/dl (6.0-8.3)
[2025-04-19] MEDS: REMOVE NICODERM PATCH SCH (08:28)
[2025-04-19] MEDS ORDERED: ACETAMINOPHEN 500 MG TAB PO PRN (14:50)
--- NOTE | 2025-04-19 14:56 | Hospitalist Progress Note ---
Date of Service April 19, 2025 Assessment & Plan (1) Pancreatitis: (2) Leukocytosis: (3) Constipation: (4) COPD (chronic obstructive pulmonary disease): Plan This patient is a 65-year-old male with a history of recurrent pancreatitis, former alcohol use disorder, prediabetes, depression/anxiety disorder, GERD, mesial temporal sclerosis and seizure disorder, folate deficiency, renal cysts, current smoker, cricopharyngeal dysphagia, vertebral artery stenosis secondary to cervical spondylosis, COPD, hypothyroidism, HTN presents to the ED with 1 day of epigastric abdominal pain that feels exactly like his previous episodes of pancreatitis. In the ED, he was found to have an elevated lipase, normal LFTs, a significant leukocytosis at 16, and evidence of acute on chronic pancreatitis on CT A/P. He is admitted for acute pancreatitis. #Acute on chronic pancreatitis/leukocytosis/former alcohol use disorder/GERD/constipation-no longer drinking alcohol. Chronic pancreatitis puts him at risk for recurrent acute pancreatitis. Has a history of an abnormal HIDA scan in 12/2023 with evidence of gallbladder dysfunction. Calcium level normal, triglycerides here are normal, LFTs remain normal, gallbladder normal and CT without bile duct dilatation. Previous MRCP in 12/2023 with dilated pancreatic duct and filling defects in the pancreatic duct-he was transferred out for ERCP at that time and repeat MRCP did not show any pancreatic duct sto joe and no procedure was performed. GI at [place] thought the MRCP was likely more consistent with the sequela of chronic pancreatitis. Pain is somewhat improved, no bowel movement in several days-likely with ileus related to pancreatitis. Lipase with slight increase, LFTs remain normal, and leukocytosis slightly worsened. - Advance to diet to clear liquids - DC IV fluids - Follow CBC, CMP, lipase, magnesium again in the morning - Dilaudid is making him itchy-switch to morphine and continue IV Toradol, and change acetaminophen from IV to p.o. as needed. Added Dilaudid to allergy list - Continue IV Zofran as needed for nausea - Continue PPI but changed to p.o. - Continue docusate 100 mg p.o. twice daily for constipation, and add daily MiraLAX - Encouraged ambulation to help with ileus #Seizure disorder/mesial temporal sclerosis-no acute issues - Continue home Lamictal #Depression/anxiety disorder-no acute issues - Continue home duloxetine #Prediabetes-no acute issues, thought to have prediabetes secondary to pancreatic insufficiency. HgbA1c 5.6% in 10/2024 - Monitor venous glucose on morning labs and if becomes elevated, would add BSG's and NovoLog sliding scale #HTN/HLD-no acute issues and is not currently on medication for either of these conditions #COPD/current smoker-mild obstructive disease on recent spirometry, no acute issues - Encourage smoking cessation, can use nicotine patch if needed - Combivent inhaler as needed #Hypothyroidism-last TSH normal 1 year ago and here is only minimally elevated at 4.69 in the setting of acute illness - Continue home dose of levothyroxine and follow as an outpatient DVT Proph-SQ Lovenox, SCDs Dispo-continued stay on medical/surgical unit Admission and Anticipated Discharge Date Admission Date: April 17, 2025 Subjective Patient reports ongoing pain but feels very hungry. He tolerated clear liquids with no significant increase in pain. He has not had a bowel movement in several days and feels like some of his abdominal pain is now lower and more gassy in nature. He also reports that the Dilaudid makes him very itchy all over and would like to switch back to morphine as needed. Physical Exam Constitutional: WD/WN, vitals as above Eyes: + anicteric sclerae Neck: trachea midline, no thyromegaly Respiratory: normal respiratory effort, lungs clear to auscultation Cardiovascular: RRR, no murmur, no edema Chest (Breasts): Chest: normal inspection of chest Gastrointestinal (Abdomen): Inspection/Auscultation: abdomen normal to inspection and normal bowel sounds; abdomen not distended Percussion/Palpation: + abdomen tender (In epigastric region without guarding or rebound) and abdomen soft; no guarding Musculoskeletal: Extremities: extremities normal to inspection; no cyanosis and no clubbing Skin: no rashes, warm and dry Neurologic: moves all extremities and awake; no focal motor deficits Psychiatric: A+Ox3, euthymic affect Lymphatic: no lymphedema Results & Data Results & Data Vital Signs (Past 12 Hours) Vital Signs Temp Pulse Resp BP Pulse Ox O2 Del Method 04/19/25 08:30 Room Air 04/19/25 07:27 36.9 C 91 H 16 127/76 95 Room Air Laboratory Results CBC, BMP, LFTs, lipase, magnesium reviewed PG Care Time/CCT Total # of Minutes Spent Total Time Spent with Patient: Total time spent is greater than 50% in coordination of care (as documented) at patient's floor/unit and/or counseling patient: Coding Level of Care Code 01168 SUB INP/OBS CARE 2/35MIN Diagnoses Pancreatitis K85.90 Acute pancreatitis complication: unspecified Chronicity: acute Pancreatitis type: unspecified pancreatitis type Leukocytosis D72.829 Constipation K59.00 COPD (chronic obstructive pulmonary disease) J44.9 (1) Pancreatitis Acute pancreatitis complication: unspecified Chronicity: acute Pancreatitis type: unspecified pancreatitis type Qualified Code(s): K85.90 - Acute pancreatitis without necrosis or infection, unspecified
[2025-04-19] MEDS: POLYETHYLENE (MIRALAX) 17 GM PACK PO SCH (15:25)
[2025-04-19] MEDS: MoRPHine SULFATE 4 MG/ML 1 ML CARP\\VIAL IV PRN (15:27)
[2025-04-20 08:26] LABS: Hematocrit (blood only) 32.6 % (42.0-52.0); Hemoglobin 11.6 g/dl (14.0-18.0); Immature Granulocytes # (auto) 0.08 K/uL (0.01-0.20); Immature Granulocytes % (auto) 0.6 %; Mean Corpuscular Hemoglobin 32.8 pg (25.0-34.0); Mean Corpuscular Volume 92.1 fL (80.0-100.0); Platelet Count 183 K/uL (130-400); RDW Standard Deviation 46.8 fL (36.4-46.3); Red Blood Count 3.54 M/uL (4.70-6.10); White Blood Count 14.03 K/ul (4.8-10.8)
[2025-04-20 08:49] LABS: Alanine Aminotransferase 7.0 U/L (7-52); Albumin Globulin Ratio 1.3 (0.9-2); Alkaline Phosphatase 105.0 U/L (34-104); Anion Gap 7.0 (3-11); Bilirubin,Total 0.9 mg/dl (0.2-1.0); Blood Urea Nitrogen 6.0 mg/dl (6-23); Calcium 8.5 mg/dl (8.6-10.3); Carbon Dioxide 28.0 mmol/L (21-32); Chloride 101.0 mmol/L (98-107); Creatinine Clr Calc Pharmacy 127.8 ml/min; Globulin 2.6 gm/dl (2.5-4.0); Glucose 90.0 mg/dl (70-99(Fasting)); Lipase 63.0 U/L (11-82); Magnesium 1.7 mg/dl (1.7-2.4); Potassium 3.3 mmol/L (3.5-5.1); Sodium 136.0 mmol/L (136-145); Total Protein 6.1 gm/dl (6.0-8.3)
--- NOTE | 2025-04-20 10:22 | Hospitalist Progress Note ---
Date of Service April 20, 2025 Assessment & Plan (1) Pancreatitis: (2) Leukocytosis: (3) Constipation: (4) COPD (chronic obstructive pulmonary disease): Plan This patient is a 65-year-old male with a history of recurrent pancreatitis, former alcohol use disorder, prediabetes, depression/anxiety disorder, GERD, mesial temporal sclerosis and seizure disorder, folate deficiency, renal cysts, current smoker, cricopharyngeal dysphagia, vertebral artery stenosis secondary to cervical spondylosis, COPD, hypothyroidism, HTN presents to the ED with 1 day of epigastric abdominal pain that feels exactly like his previous episodes of pancreatitis. In the ED, he was found to have an elevated lipase, normal LFTs, a significant leukocytosis at 16, and evidence of acute on chronic pancreatitis on CT A/P. He is admitted for acute pancreatitis. #Acute on chronic pancreatitis/leukocytosis/former alcohol use disorder/GERD/constipation-no longer drinking alcohol for approximately 1 year. Chronic pancreatitis puts him at risk for recurrent acute pancreatitis. Has a history of an abnormal HIDA scan in 12/2023 with evidence of gallbladder dysfunction. Calcium level normal, triglycerides here are normal, LFTs remain normal except mild elevation in alkaline phosphatase, gallbladder normal and CT without bile duct dilatation. Previous MRCP in 12/2023 with dilated pancreatic duct and filling defects in the pancreatic duct-he was transferred out for ERCP at that time and repeat MRCP did not show any pancreatic duct stones and no procedure was performed. GI at [facility] thought the MRCP was likely more consistent with the sequela of chronic pancreatitis. Pain is somewhat improved, still no bowel movement in many days-likely with ileus related to pancreatitis. Lipase now normalized and leukocytosis improving. Have since discontinued IV fluids - Advance to diet to low-fat - Add on oxycodone for p.o. control to try to wean off IV morphine; continue IV Toradol and acetaminophen as needed - Follow CBC, CMP, lipase, magnesium, and phosphorus again in the morning - Continue IV Zofran as needed for nausea - Continue PPI - Continue docusate 100 mg p.o. twice daily for constipation, and increase MiraLAX to twice daily, add milk of magnesia daily as needed-advised nurse to give later on 04/20 if no bowel movement after ambulation - Encouraged ambulation to help with ileus - For hypokalemia, give KCl 20 mEq p.o. x 1 and follow BMP, magnesium in the morning #Seizure disorder/mesial temporal sclerosis-no acute issues - Continue home Lamictal #Depression/anxiety disorder-no acute issues - Continue home duloxetine #Prediabetes-no acute issues, thought to have prediabetes secondary to pancreatic insufficiency. HgbA1c 5.6% in 10/2024 and a.m. fasting glucose has been normal - Monitor venous glucose on morning labs and if becomes elevated, would add BSG's and NovoLog sliding scale #HTN/HLD-no acute issues and is not currently on medication for either of these conditions #COPD/current smoker-mild obstructive disease on recent spirometry, no acute issues - Encourage smoking cessation, can use nicotine patch if needed - Combivent inhaler as needed #Hypothyroidism-last TSH normal 1 year ago and here is only minimally elevated at 4.69 in the setting of acute illness - Continue home dose of levothyroxine and follow as an outpatient DVT Proph-SQ Lovenox, SCDs Dispo-continued stay on medical/surgical unit, possible discharge to home in 1-2 days Admission and Anticipated Discharge Date Admission Date: April 17, 2025 Subjective Patient reports ongoing epigastric pain and some lower abdominal cramping. Still no bowel movement since prior to admission. He is still taking IV morphine. He is hungry for regular food. No nausea or vomiting. He did ambulate the halls yesterday evening for the first time. Physical Exam Constitutional: WD/WN, vitals as above Eyes: + anicteric sclerae Neck: trachea midline, no thyromegaly Respiratory: normal respiratory effort, lungs clear to auscultation Cardiovascular: RRR, no murmur, no edema Chest (Breasts): Chest: normal inspection of chest Gastrointestinal (Abdomen): Inspection/Auscultation: abdomen normal to inspection and normal bowel sounds; abdomen not distended Percussion/Palpation: + abdomen tender (In epigastric region without guarding or rebound) and abdomen soft; no guarding Musculoskeletal: Extremities: extremities normal to inspection; no cyanosis and no clubbing Skin: no rashes, warm and dry Neurologic: moves all extremities and awake; no focal motor deficits Psychiatric: A+Ox3, euthymic affect Lymphatic: no lymphedema Results & Data Results & Data Vital Signs (Past 12 Hours) Vital Signs Temp Pulse Resp BP Pulse Ox O2 Del Method 04/20/25 07:33 Room Air 04/20/25 07:05 36.9 C 91 H 16 155/79 H 94 Room Air 04/19/25 23:06 36.7 C 96 H 16 141/86 H 94 Room Air Laboratory Results CBC, CMP, magnesium, lipase reviewed PG Care Time/CCT Total # of Minutes Spent Total Time Spent with Patient: Total time spent is greater than 50% in coordination of care (as documented) at patient's floor/unit and/or counseling patient: Coding Level of Care Code 81772 SUB INP/OBS CARE 2/35MIN Diagnoses Pancreatitis K85.90 Acute pancreatitis complication: unspecified Chronicity: acute Pancreatitis type: unspecified pancreatitis type Leukocytosis D72.829 Constipation K59.00 COPD (chronic obstructive pulmonary disease) J44.9 (1) Pancreatitis Acute pancreatitis complication: unspecified Chronicity: acute Pancreatitis type: unspecified pancreatitis type Qualified Code(s): K85.90 - Acute pancreatitis without necrosis or infection, unspecified
[2025-04-20] MEDS: POTASSIUM CHLORIDE CRTAB 20 MEQ TABCR PO STA (10:29)
[2025-04-20] MEDS: MAGNESIUM HYDROXIDE SUSP 30 ML UDC PO PRN (18:21)
[2025-04-20] MEDS: POLYETHYLENE (MIRALAX) 17 GM PACK PO SCH (21:57)
[2025-04-21 07:52] LABS: Hematocrit (blood only) 33.9 % (42.0-52.0); Hemoglobin 12.0 g/dl (14.0-18.0); Immature Granulocytes # (auto) 0.08 K/uL (0.01-0.20); Immature Granulocytes % (auto) 0.6 %; Mean Corpuscular Hemoglobin 32.6 pg (25.0-34.0); Mean Corpuscular Volume 92.1 fL (80.0-100.0); Platelet Count 194 K/uL (130-400); RDW Standard Deviation 47.0 fL (36.4-46.3); Red Blood Count 3.68 M/uL (4.70-6.10); White Blood Count 13.63 K/ul (4.8-10.8)
[2025-04-21 08:08] LABS: Alanine Aminotransferase 8.0 U/L (7-52); Albumin Globulin Ratio 1.3 (0.9-2); Alkaline Phosphatase 130.0 U/L (34-104); Anion Gap 10.0 (3-11); Bilirubin,Total 1.1 mg/dl (0.2-1.0); Blood Urea Nitrogen 6.0 mg/dl (6-23); Calcium 8.5 mg/dl (8.6-10.3); Carbon Dioxide 26.0 mmol/L (21-32); Chloride 97.0 mmol/L (98-107); Creatinine Clr Calc Pharmacy 130.2 ml/min; Globulin 2.7 gm/dl (2.5-4.0); Glucose 65.0 mg/dl (70-99(Fasting)); Lipase 29.0 U/L (11-82); Magnesium 1.8 mg/dl (1.7-2.4); Potassium 3.5 mmol/L (3.5-5.1); Sodium 133.0 mmol/L (136-145); Total Protein 6.1 gm/dl (6.0-8.3)
--- NOTE | 2025-04-21 13:39 | Hospitalist Progress Note ---
Date of Service April 21, 2025 Assessment & Plan (1) Pancreatitis: Plan: Acute on chronic on admission. Lipase has now normalized. (2) Epigastric pain: Plan: Possible underlying acute gastritis causing his symptoms. Carafate has been ordered 4 times daily on an empty stomach. Will follow (3) Leukocytosis: Plan: Dating to January of this year. No overt infectious process seen. Will follow (4) Constipation: Plan: Continue current medical regimen. (5) COPD (chronic obstructive pulmonary disease): Plan: Stable. Continue current medical management Plan Hopeful discharge to home within the next day or 2 Admission and Anticipated Discharge Date Admission Date: April 17, 2025 Subjective Alert and oriented. He is complaining of epigastric discomfort and his appetite is not very good. Carafate ordered. Lipase is normalized. Hopefully he can go home tomorrow, April 22 Review of Systems 2 Review of Systems: Constitutionalno fever or chills ENTno blurred vision, no double vision, no epistaxis, no sore throat Respiratoryno cough, no wheezing, no shortness of breath Cardiacno palpitations, no chest pain, no syncope GIpersistent epigastric discomfort. No vomiting. No melena or hematochezia GUno urinary retention, no urinary incontinence, no dysuria, no hematuria Musculoskeletalno joint pain, no muscle tenderness Skinno bruising, no rashes, no pruritus Neurono isolated weakness, no paresthesia, no weakness Psychno depression, no anxiety Physical Exam 2 Physical Exam: General-alert and oriented x3, no fever, no chills HEENT-head atraumatic and normocephalic, pupils equal and reactive to light, extraocular muscles intact Neck-no lymphadenopathy or thyromegaly, trachea midline Chest-clear to auscultation. No rales, wheezing or rhonchi Cardiac-regular rate and rhythm, normal S1 and S2 Abdomen-tender epigastric region. No rebound or guarding. No masses. Normal bowel sounds, no hepatosplenomegaly Extremities-no cyanosis, clubbing, or edema Neuro-cranial nerves II through XII intact, motor and sensory function within normal limits, strength symmetrical, no focal deficits Psych-normal affect, normal mood Results & Data Results & Data Vital Signs (Past 12 Hours) Vital Signs Temp Pulse Resp BP Pulse Ox O2 Del Method 04/21/25 07:46 36.9 C 93 H 17 174/53 H 94 Room Air 04/21/25 07:15 Room Air Laboratory Results 04/21/25 06:41 04/21/25 06:41 PG Care Time/CCT Total # of Minutes Spent Total Time Spent with Patient: Total time spent is greater than 50% in coordination of care (as documented) at patient's floor/unit and/or counseling patient: Coding Level of Care Code 85204 SUB INP/OBS CARE 3/50MIN Diagnoses Pancreatitis K85.90 Acute pancreatitis complication: unspecified Chronicity: acute Pancreatitis type: unspecified pancreatitis type Epigastric pain R10.13 Leukocytosis D72.829 Constipation K59.00 COPD (chronic obstructive pulmonary disease) J44.9 (1) Pancreatitis Acute pancreatitis complication: unspecified Chronicity: acute Pancreatitis type: unspecified pancreatitis type Qualified Code(s): K85.90 - Acute pancreatitis without necrosis or infection, unspecified
[2025-04-21] MEDS: SUCRALFATE 1 GM TAB PO SCH (17:45)
[2025-04-21 23:03] VITALS: PULSE 99; RESP 18
[2025-04-22 07:10] LABS: Hematocrit (blood only) 35.7 % (42.0-52.0); Hemoglobin 12.9 g/dl (14.0-18.0); Immature Granulocytes # (auto) 0.06 K/uL (0.01-0.20); Immature Granulocytes % (auto) 0.5 %; Mean Corpuscular Hemoglobin 32.7 pg (25.0-34.0); Mean Corpuscular Volume 90.4 fL (80.0-100.0); Platelet Count 255 K/uL (130-400); RDW Standard Deviation 45.2 fL (36.4-46.3); Red Blood Count 3.95 M/uL (4.70-6.10); White Blood Count 13.23 K/ul (4.8-10.8)
[2025-04-22 07:34] VITALS: BP 134/71; TEMP 99.1; O2SAT 93
[2025-04-22 07:36] LABS: Anion Gap 14.0 (3-11); Blood Urea Nitrogen 6.0 mg/dl (6-23); Calcium 8.9 mg/dl (8.6-10.3); Carbon Dioxide 23.0 mmol/L (21-32); Chloride 96.0 mmol/L (98-107); Creatinine Clr Calc Pharmacy 123.1 ml/min; Glucose 81.0 mg/dl (70-99(Fasting)); Potassium 3.4 mmol/L (3.5-5.1); Sodium 133.0 mmol/L (136-145)
--- NOTE | 2025-04-22 12:18 | Discharge Summary ---
Discharge Summary Date of Service April 22, 2025 Principal Dx & Hospital Course #1 = Principal Diagnosis (1) Pancreatitis: Acute on chronic on admission. Lipase has now normalized. He continues to complain of epigastric discomfort but this is a chronic problem and will need further evaluation by his PCP as an outpatient (2) Epigastric pain: Possible underlying acute gastritis causing his symptoms. Carafate was ordered but the patient states it had little effect. His abdominal complaints are chronic. This will be further evaluated as an outpatient by his PCP (3) Leukocytosis: Dating to January of this year. No overt infectious process seen. Will follow (4) Constipation: Continue current medical regimen. (5) COPD (chronic obstructive pulmonary disease): Stable. Continue current medical management Plan Home today, April 22 Admission HPI Per Admitting Provider This patient is a 65-year-old male with a history of recurrent pancreatitis, former alcohol use disorder, prediabetes, depression/anxiety disorder, GERD, mesial temporal sclerosis and seizure disorder, folate deficiency, renal cysts, current smoker, cricopharyngeal dysphagia, vertebral artery stenosis secondary to cervical spondylosis, COPD, hypothyroidism, HTN presents to the ED with 1 day of epigastric abdominal pain that feels exactly like his previous episodes of pancreatitis. He had 1 episode of nausea with vomiting last night. Last bowel movement was yesterday. He has been more constipated in the last week since he started taking vitamin D supplementation. In the ED, he was found to have an elevated lipase, normal LFTs, a significant leukocytosis at 16, and evidence of acute on chronic pancreatitis on CT A/P. He was given IV Toradol, IV morphine, IV Zofran, and IV fluids. He will be admitted for acute pancreatitis. Discharge Exam General-alert and oriented x3, no fever, no chills HEENT-head atraumatic and normocephalic, pupils equal and reactive to light, extraocular muscles intact Neck-no lymphadenopathy or thyromegaly, trachea midline Chest-clear to auscultation. No rales, wheezing or rhonchi Cardiac-regular rate and rhythm, normal S1 and S2 Abdomen-tender epigastric region. No rebound or guarding. No masses. Normal bowel sounds, no hepatosplenomegaly Extremities-no cyanosis, clubbing, or edema Neuro-cranial nerves II through XII intact, motor and sensory function within normal limits, strength symmetrical, no focal deficits Psych-normal affect, normal mood Discharge Plan Discharge Items Patient Disposition: Home - Self-Care Reason For Visit: ACUTE PANCREATITIS Discharge Diagnosis: Acute on chronic pancreatitis Condition on Discharge: Fair Activity: Resume your previous activity Non-emergency contact: Primary Care Provider Call non-emergency contact if: your symptoms worsen Follow-up/Referrals: Jeff Grimaldo CRNP [Primary Care Provider] - Diet: Regular Addtl Attending Provider Instructions: All medications remain the same. See primary care provider for treatment of chronic problems Pending Studies at Discharge: No Stand-Alone Forms: My Last 2 Left, Smoking Cessation Medications and DC Order Prescriptions: Continued Combivent Respimat 20-100 mcg/actuation mist 1 puff inhalation QID Qty: 4 5RF folic acid 1 mg tablet 1 mg PO QAM Qty: 90 2RF thiamine HCl (vitamin B1) 100 mg tablet 100 mg PO QAM Qty: 30 4RF pantoprazole 40 mg tablet,delayed release (DR/EC) 40 mg PO DAILY Qty: 30 3RF levothyroxine [Synthroid] 25 mcg tablet 25 mcg PO DAILYBB Qty: 90 1RF cholecalciferol (vitamin D3) 25 mcg (1,000 unit) capsule 25 mcg PO DAILY Qty: 30 0RF Patient Comments: 04/17- otc unable to verify cyanocobalamin (vitamin B-12) [Vitamin B-12] 1,000 mcg tablet 1,000 mcg PO DAILY Qty: 30 5RF Patient Comments: 04/17- otc unable to verify duloxetine 60 mg capsule,delayed release(DR/EC) 60 mg PO DAILY Qty: 90 2RF lamotrigine 200 mg tablet 200 mg PO BID Qty: 60 5RF magnesium oxide 400 mg (241.3 mg magnesium) Tablet 400 mg PO HS Qty: 30 0RF Patient Comments: 04/17- otc unable to verify Discharge Orders: Discharge Order (Routine); Ordered 04/22/25 Ordered By: Eder Robles Admission Data Admit Date/Time: 04/17/25 18:01 Attending Provider: Eder Robles Admit Provider: Amada Coker Primary Care Provider: Jeff Grimaldo Other Providers: Amada Coker Hospital Stay Data Consultations 04/17/25 17:08 ED Decision to Admit Stat Diagnostic Imagining Performed 04/17/25 15:55 CT abd pelvis IV con only Stat Pending Results Patient Have Any Pending Studies at Discharge: No Discharge Instructions Given to Patient (Per Discharging Provider) All medications remain the same. See primary care provider for treatment of chronic problems Total Time Total Time Spent Total Time Spent (In Minutes): 45 minutes Coding Level of Care Code 39043 INP/OBS DISCH >30 MIN Diagnoses Pancreatitis K85.90 Acute pancreatitis complication: unspecified Chronicity: acute Pancreatitis type: unspecified pancreatitis type Epigastric pain R10.13 Leukocytosis D72.829 Constipation K59.00 COPD (chronic obstructive pulmonary disease) J44.9
== END 2025-04-22 13:07 | disposition home or self-care (01) | DRG 439 ==
LOC: SUATTDRO → ED 14:59 → SUATTDRO 18:01 → 3W 18:01

== ENCOUNTER 2025-04-29 01:20 | Observation (INO) ==
[2025-04-29] MEDS: SODIUM CHLORIDE 0.9% 250 ML IV ONE (01:43)
[2025-04-29 01:52] LABS: Hematocrit (blood only) 34.9 % (42.0-52.0); Hemoglobin 12.1 g/dl (14.0-18.0); Immature Granulocytes # (auto) 0.19 K/uL (0.01-0.20); Immature Granulocytes % (auto) 0.9 %; Mean Corpuscular Hemoglobin 31.8 pg (25.0-34.0); Mean Corpuscular Volume 91.6 fL (80.0-100.0); Platelet Count 381 K/uL (130-400); RDW Standard Deviation 48.7 fL (36.4-46.3); Red Blood Count 3.81 M/uL (4.70-6.10); White Blood Count 21.69 K/ul (4.8-10.8)
[2025-04-29 02:11] LABS: Alanine Aminotransferase 10.0 U/L (7-52); Albumin Globulin Ratio 0.9 (0.9-2); Albumin Level 3.2 gm/dl (3.4-5.0); Alkaline Phosphatase 112.0 U/L (34-104); Anion Gap 7.0 (3-11); Bilirubin,Total 0.6 mg/dl (0.2-1.0); Blood Urea Nitrogen 12.0 mg/dl (6-23); Calcium 8.8 mg/dl (8.6-10.3); Carbon Dioxide 31.0 mmol/L (21-32); Chloride 98.0 mmol/L (98-107); Creatinine Clr Calc Pharmacy 122.4 ml/min; Globulin 3.5 gm/dl (2.5-4.0); Glucose 137.0 mg/dl (70-99(Fasting)); Lipase 244.0 U/L (11-82); Potassium 2.7 mmol/L (3.5-5.1); Sodium 136.0 mmol/L (136-145); Total Protein 6.7 gm/dl (6.0-8.3)
[2025-04-29 02:17] LABS: Appearance Urine Clear (Clear); Bacteria Urine Automated None Seen (None Seen); Cast Urine Automated 0-2 /lpf (0-2); Glucose Urine UA Negative (Negative); WBC Urine Automated 0-5 /hpf (0-5)
--- NOTE | 2025-04-29 02:23 | Emergency Department Note ---
Impression & Plan Hypokalemia, Pancreatitis, Sepsis admit to the [facility] ED Provider Note NAME: RIMA COLLAZO AGE: 65 SEX: Male INFORMANT: Patient ED PROVIDER(S): Cari Quarles DO CHIEF COMPLAINT: abdominal pain PLAN: Disposition: admit to the [facility] MEDICAL DECISION MAKING: this is a 65-year-old male patient with a history of pancreatitis who presents to the emergency department with worsening epigastric abdominal pain and lower abdominal pain that radiates to his back. He had some associated nausea and chills today which was concerning for him. Patient describes very little oral intake or output. Physical exam, the patient has exquisite tenderness in the epigastrium and some suprapubic tenderness with flank pain bilaterally. Laboratory studies reveal a white blood cell count of 21.6. H&H were stable. Potassium was significantly low at 2.7. Lipase was elevated at 244 and glucose was 137. Urinalysis appeared to be contaminated but had no obvious signs of infection. The patient was treated with IV fluid bolus as well as K riders. He went for CT scan of the abdomen/pelvis. Patient's lactate was normal but procalcitonin was elevated at 6.4. This was concerning for sepsis and the patient was given a dose of IV cefepime. patient was given IV droperidol and fentanyl in the field which gave him moderate leaf of his symptoms. Upon arrival however here in the emergency department the patient's potassium was significantly low and he was placed on [address] scan shows evidence of acute on chronic pancreatitis. [facility] care. Care/management discussed with: jail manager and [facility] Triage Nursing notes: reviewed and agree with them. 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 Has a history of pancreatitis Prior/ Outside/ External records reviewed: multiple previous inpatient records were reviewed. Differential Diagnosis: Recurrent pancreatitis, sepsis, UTI, pneumonia Diagnostics, independently interpreted by me: ECG: normal sinus rhythm at a rate of [address] segment elevation or signs of ischemia. There is no ectopy. Cardiac Monitoring: Sinus tachycardia at 105. Imaging studies: portable chest x-ray: No acute pulm infiltrates or consolidation as per my independent interpretation CT scan of the abdomen/pelvis: As per imbro. The patient has evidence of acute on chronic pancreatitis with questionable pseudocyst versus necrosis. HPI: 65 year old Male arrives for evaluation of Abdominal pain. patient with a history of pancreatitis who presents to the emergency department with worsening epigastric abdominal pain and lower abdominal pain that radiates to his back. He had some associated nausea and chills today which was concerning for him. . PAST MEDICAL HISTORY: See Below, PAST SURGICAL HISTORY: See Below, SOCIAL HISTORY: See Below, HOME MEDICATIONS: see list ALLERGIES: see list VITALS: See Below PHYSICAL EXAMINATION: HEENT: Head - normocephalic and atraumatic Pupils are equal, round, and reactive to light. Extraocular eye muscles are intact, and sclera are anicteric. Nose - moist nasal mucosa without discharge. Mouth - moist buccal mucosa. Oropharynx is nonerythematous and there is no tonsillar exudate or edema noted. Neck: Supple; no JVD, nuchal rigidity, cervical lymphadenopathy, or auscultated bruits. Heart: Tachycardic rate and regular rhythm. There is a normal S1 and S2 with no murmurs, clicks, or gallops appreciated. Lungs: Clear to auscultation bilaterally with no wheezes, rales, or rhonchi. Abdomen: Soft, moderate tenderness to palpation in the epigastrium with good bowel sounds. There are no palpable pulsatile masses or hepatosplenomegaly. There is no guarding, rigidity, or rebound noted. Extremities: No evidence of cyanosis, clubbing, or edema. There are easily palpable peripheral pulses. Skin: warm and dry with good turgor and no rashes. Emergency department treatment: director geophysical laboratory, IV normal saline bolus, IV cefepime, IV K rider Emergency department course: The patient was evaluated in room B-6. A complete history and physical was performed. An order was placed for continuous cardiac monitoring. The patient was in a sinus tachycardia at a rate of 105. IV lock was initiated and labs were drawn as above. patient was bolused with IV normal saline solution. Patient's potassium was noted to be at 2.7. He was started on 2 consecutive K riders. Patient's procalcitonin was elevated and the patient had a white blood cell count of 21.6. He was prophylactically given cefepime. Portable chest x-ray was performed. The patient went for CT scan of the abdomen/pelvis. The hospitalist and they will evaluate for further inpatient care. I have personally spent greater than 40 minutes of critical care time in the direct management of this patient. This includes bedside care, interpretation of diagnostic studies, and testing, discussion with consultants, patient, and family members, and other required patient management activities. This 40 minutes is in excess of all separately billable procedures. Past Med/Surg History Problem List (Updated 04/29/25 @ 06:02 by Cari Quarles DO) Sepsis (Acute) Pancreatitis (Acute) History of alcohol abuse Pancreatic pseudocyst Hypokalemia (Acute) Epigastric pain Constipation Leukocytosis Prediabetes Pancreatitis (Acute) Decreased pedal pulses Pulmonary nodule GERD without esophagitis Anxiety Mesial temporal sclerosis Stable per 10/18/22 neuro note Folate deficiency Erectile dysfunction Kidney lesion (Acute) Renal Cyst -CT of Abd noted 02/18/21 first describes 7 mm left renal lesion, hyperdense cyst versus solid renal neoplasm. A nonemergent dedicated renal CT scan or MRI is recommended in follow-up -Renal CT 02/19/21-7 mm left renal lesion in question appeared hyperdense to renal parenchyma on the noncontrast portion of the study and did not demonstrate significant enhancement. This lesion is felt to represent a hyperdense cyst. A 12 month follow-up study would seem prudent. -Renal CT 05/31/21-Stable 9 mm hyperdense/hemorrhagic cyst within the left kidney, There is a 6 mm hypodense lesion within the left kidney which is technically too small to characterize but favors a simple cyst. Tobacco dependence Cricopharyngeal dysphagia Per 08/2022 records- stable; video swallow with cricopharyngeal bar; s/p EGD 07/27/22 with esophageal stenosis which was like cause of the bar seen- s/p dilation- dysphagia improved/resolved Esophageal dysphagia Improved per 08/2022 PCP records Cervical spondylosis Vertebral artery stenosis Per 07/2020 Neck CTA- severe stenosis of the left vertebral artery of the C4 level due to osteophytes Medical History Intermittent claudication Chronic cholecystitis Alcoholism in recovery Tobacco use disorder Seizure disorder Alcohol abuse Hypothyroidism Hypertension Calculus of pancreatic duct Pancreatic duct obstruction Hx of pleural effusion Marijuana use Hx of aspiration pneumonitis 07/2022- treated with abx Poor historian Hx of seizure disorder Last seizure 08/2021- has not had one since started lamictal (did confirmed 10/27/22 with patient's caregiver that he is taking Lamictal daily) Degenerative disc disease History of pancreatitis (~02/2020) S/p ERCP on 07/16/22 with large gallbladder stone removed. Biliary sphincterectomy and stent placed to be removed in 3 months. Thrombocytopenia Depression Macrocytic anemia Surgical History History of esophagogastroduodenoscopy (EGD) 10/19/20 [facility] S/P epidural steroid injection History of colonoscopy Status post tooth extraction Hx of neck surgery (05/2018) cervical fusion (C2-C3?) Full ROM Family History Aunt Parkinson disease Cerebral aneurysm Mother Cerebral aneurysm Depression Anemia Uncle Cerebral aneurysm Other No family history of adverse response to anesthesia Denies family history of Ovarian cancer Prostate cancer Myocardial infarction Breast cancer Lung cancer Colorectal cancer Social History Smoking Status: Current every day smoker Tobacco Type: Cigarettes Age Started Using Tobacco: 17; packs per day: 1; Cigarettes Per Day: 1 pack per day; Second Hand Exposure: Yes; Do You Dip or Chew Tobacco: No; Hx Alcohol Use: Yes Alcohol type: hard liquor Alcohol Intake Frequency Comment: fifth of vodka per week Hx Substance Use: Yes Prescribed Medications: Marijuana Last Used Substance: Days (ago) Last Used Substance Other:: 04/16/25 Substance Use Type Other:: Daily Preferred Language: Thai Communication Ability: Effective Visual Impairment: No Limitations Hearing Ability: Normal Miter Saw Operator Required: No Beliefs That Will Affect Care: None marital status: Single Current Living Situation: Significant Other Current Living Situation Comment: fiance current occupational status: disabled Feels Safe at Home: Yes Childhood Exposure to Second-Hand Smoke: Yes Diet: regular Diet Comment: regular caffeine: No during the past year weight has: remained stable Dental Care, Regularly: No Physical Activity Frequency: Does not Exercise Seatbelt Use: always Sunscreen Use: No Assistive Devices: Cane and Walker Allergies Allergies Allergy/AdvReac Type Severity Reaction Status Date / Time hydromorphone Allergy Mild Itching Verified 04/27/25 13:53 sertraline Allergy Mild Abdominal Verified 04/27/25 13:53 Pain Home Meds Home Medications Medication Instructions Recorded Confirmed cyanocobalamin (vitamin B-12) 1,000 mcg PO QPM 04/29/25 04/29/25 1,000 mcg tablet (Vitamin B-12) pantoprazole 40 mg tablet,delayed 40 mg PO QAM 04/29/25 04/29/25 release Previous Rx's Medication Instructions Recorded ipratropium 20 mcg-albuterol 100 1 puff inhalation QID Shortness Of 05/29/24 mcg/actuation mist for inhalation Breath #4 grams (Combivent Respimat) folic acid 1 mg tablet 1 mg PO QAM #90 tabs 08/26/24 thiamine HCl (vitamin B1) 100 mg 100 mg PO QAM #30 tabs 11/12/24 tablet lamotrigine 200 mg tablet 200 mg PO BID #60 tabs 12/12/24 duloxetine 60 mg capsule,delayed 60 mg PO DAILY #90 caps 03/16/25 release levothyroxine 25 mcg tablet 25 mcg PO DAILYBB #90 tabs 03/25/25 (Synthroid) cholecalciferol (vitamin D3) 25 25 mcg PO DAILY #30 caps 03/27/25 mcg (1,000 unit) capsule tramadol 50 mg tablet 50 mg PO Q8H PRN pain #12 tabs 04/27/25 trazodone 50 mg tablet 50 mg PO DAILY #30 tabs 04/27/25 Results & Data (ED) Vital Signs Vital Signs - 24 hr 04/29/25 01:25 04/29/25 01:31 04/29/25 01:31 Temperature 37 C 37 C Temperature Source Oral Oral Pulse Rate 104 H 105 H Pulse Rate [Apical] 105 H Pulse Rhythm Regular Pulse Rhythm [Apical] Regular Pulse Strength Normal Pulse Strength [Apical] Normal Respiratory Rate 14 14 Respiratory Effort / Characteristics Non-Labored Spontaneous Non-Labored Spontaneous Respiratory Depth Normal Normal Respiratory Pattern Regular Regular Blood Pressure 132/96 Blood Pressure [Left Arm] 132/96 Blood Pressure Mean 108 Blood Pressure Mean [Left Arm] 108 Pulse Oximetry 95 95 Oxygen Delivery Method Room Air Room Air Sepsis Recent Fever Within 48 Hours No Sepsis New/Unexplained Change in Mental Status No Sepsis Action Taken by Nursing No Action Required 04/29/25 01:31 04/29/25 02:00 04/29/25 02:36 Temperature Temperature Source Pulse Rate 105 H 105 H 104 H Pulse Rate [Apical] Pulse Rhythm Regular Pulse Rhythm [Apical] Pulse Strength Pulse Strength [Apical] Respiratory Rate 14 16 17 Respiratory Effort / Characteristics Respiratory Depth Respiratory Pattern Blood Pressure 132/71 133/68 Blood Pressure [Left Arm] Blood Pressure Mean 91 89 Blood Pressure Mean [Left Arm] Pulse Oximetry 95 93 Oxygen Delivery Method Sepsis Recent Fever Within 48 Hours Sepsis New/Unexplained Change in Mental Status Sepsis Action Taken by Nursing 04/29/25 03:00 04/29/25 03:33 04/29/25 04:06 Temperature Temperature Source Pulse Rate 100 H 103 H 107 H Pulse Rate [Apical] Pulse Rhythm Pulse Rhythm [Apical] Pulse Strength Pulse Strength [Apical] Respiratory Rate 17 22 23 Respiratory Effort / Characteristics Respiratory Depth Respiratory Pattern Blood Pressure 147/76 H 131/76 166/91 H Blood Pressure [Left Arm] Blood Pressure Mean 108 94 116 Blood Pressure Mean [Left Arm] Pulse Oximetry 96 97 97 Oxygen Delivery Method Sepsis Recent Fever Within 48 Hours Sepsis New/Unexplained Change in Mental Status Sepsis Action Taken by Nursing 04/29/25 04:57 Temperature Temperature Source Pulse Rate 102 H Pulse Rate [Apical] Pulse Rhythm Pulse Rhythm [Apical] Pulse Strength Pulse Strength [Apical] Respiratory Rate 16 Respiratory Effort / Characteristics Respiratory Depth Respiratory Pattern Blood Pressure 155/81 H Blood Pressure [Left Arm] Blood Pressure Mean 105 Blood Pressure Mean [Left Arm] Pulse Oximetry 99 Oxygen Delivery Method Sepsis Recent Fever Within 48 Hours Sepsis New/Unexplained Change in Mental Status Sepsis Action Taken by Nursing Laboratory Data 04/29/25 01:28 04/29/25 01:28 Lab Results 04/29/25 04/29/25 04/29/25 Range/Units 01:28 01:53 02:30 WBC 21.69 H (4.8-10.8) K/ul RBC 3.81 L (4.70-6.10) M/uL Hgb 12.1 L (14.0-18.0) g/dl Hct 34.9 L (42.0-52.0) % MCV 91.6 (80.0-100.0) fL MCH 31.8 (25.0-34.0) pg MCHC 34.7 (32.0-36.0) g/dL RDW Std Deviation 48.7 H (36.4-46.3) fL RDW Coeff of Brianda 14.6 H (11.5-14.5) % Plt Count 381 (130-400) K/uL MPV 10.0 (9.4-12.4) fL Immature Gran % (Auto) 0.9 % Neut % (Auto) 79.4 % Lymph % (Auto) 8.6 % [place] % (Auto) 9.2 % Eos % (Auto) 1.6 % Baso % (Auto) 0.3 % Neut # (Auto) 17.23 H (1.40-6.50) K/uL Lymph # (Auto) 1.87 (1.20-3.40) K/uL [place] # (Auto) 1.99 H (0.11-0.59) K/uL Eos # (Auto) 0.35 (0.00-0.50) K/uL Baso # (Auto) 0.06 (0.00-0.20) K/uL Immature Gran # (Auto) 0.19 (0.01-0.20) K/uL Sodium 136 (136-145) mmol/L Potassium 2.7 L (3.5-5.1) mmol/L Chloride 98 (98-107) mmol/L Carbon Dioxide 31 (21-32) mmol/L Anion Gap 7 (3-11) BUN 12 (6-23) mg/dl Creatinine 0.56 L (0.6-1.4) mg/dl Est Cr Clr Drug Dosing 122.4 ml/min eGFR 109.38 BUN/Creatinine Ratio 21.4 H (10-20) Glucose 137 H (70-99(Fasting)) mg/dl Lactate 1.3 (0.4-2.0) mmol/L Calcium 8.8 (8.6-10.3) mg/dl Magnesium 1.7 (1.7-2.4) mg/dl Total Bilirubin 0.6 (0.2-1.0) mg/dl AST 11 L (13-39) U/L ALT 10 (7-52) U/L Alkaline Phosphatase 112 H (34-104) U/L Troponin I High Sens 7.0 (0-20) pg/ml Total Protein 6.7 (6.0-8.3) gm/dl Albumin 3.2 L (3.4-5.0) gm/dl Globulin 3.5 (2.5-4.0) gm/dl Albumin/Globulin Ratio 0.9 (0.9-2) Lipase 244 H (11-82) U/L Procalcitonin 6.43 H (0-0.5) ng/ml Urine Color Dark Yellow Urine Appearance Clear (Clear) Urine pH 6.0 (4.5-7.5) Ur Specific [place] 1.031 H (1.000-1.030) Urine Protein 1+ H (Negative) Urine Glucose (UA) Negative (Negative) Urine Ketones Trace H (Negative) Urine Blood Negative (Negative) Urine Nitrite Negative (Negative) Urine Bilirubin 1+ H (Negative) Urine Urobilinogen Negative (Negative) Ur Leukocyte Esterase Trace H (Negative) Urine WBC (Auto) 0-5 (0-5) /hpf Urine RBC (Auto) 11-20 H (0-2) /hpf U Hyaline Cast (Auto) 0-2 (0-2) /lpf U Epithel Cells (Auto) 3-5 H (0-2) /hpf Urine Bacteria (Auto) None Seen (None Seen) Urine Mucus Present A (None Prsent) Urine Comment Administered Medications Potassium Chloride/Sodium Chloride (Normal Saline W/20 Meq Kcl) 20 meq in 1,000 mls @ 125 mls/hr IV .Q8H MAKSIM Stop: 04/29/25 19:59 Last Admin: 04/29/25 04:34 Dose: 125 mls/hr Documented By: SHIREEN Magnesium Sulfate/Dextrose (Magnesium Sulfate / D5w) 1 gm in 100 mls @ 50 mls/hr IV ONE ONE Stop: 04/29/25 07:02 Last Admin: 04/29/25 05:10 Dose: 50 mls/hr Documented By: SHIREEN Discontinued Medications Sodium Chloride (Nss) 250 mls @ 999 mls/hr IV .Q16M ONE Stop: 04/29/25 01:47 Last Infusion: 04/29/25 02:01 Dose: Infused Documented By: Admin: 04/29/25 01:43 Dose: 999 mls/hr Documented By: VELASQUEZ Potassium Chloride (K Benito / Wtr) 10 meq in 100 mls @ 100 mls/hr IV Q1H MAKSIM Stop: 04/29/25 04:14 Last Admin: 04/29/25 03:57 Dose: Not Given Documented By: Infusion: 04/29/25 03:57 Dose: Infused Documented By: Infusion: 04/29/25 03:36 Dose: 0 mls/hr Documented By: Infusion: 04/29/25 03:14 Dose: 75 mls/hr Documented By: Admin: 04/29/25 03:00 Dose: 100 mls/hr Documented By: SHIREEN Cefepime HCl (Maxipime 2000mg) 2,000 mg in 20 mls @ 5 mls/min IV NOW STA; Protocol Stop: 04/29/25 03:34 Last Admin: 04/29/25 03:40 Dose: 5 mls/min Documented By: SHIREEN Sodium Chloride (Nss) 1,000 mls @ 999 mls/hr IV .Q1H1M MAKSIM Stop: 04/29/25 05:45 Last Infusion: 04/29/25 05:14 Dose: Infused Documented By: Admin: 04/29/25 04:37 Dose: 999 mls/hr Documented By: Infusion: 04/29/25 04:37 Dose: Infused Documented By: Admin: 04/29/25 03:40 Dose: 999 mls/hr Documented By: SHIREEN Ioversol (Optiray 320 100ml) 93 ml IV ONCE ONE Stop: 04/29/25 02:55 Last Admin: 04/29/25 02:55 Dose: 93 ml Documented By: GES Imaging Data Radiologist's Impression: Chest X-Ray 04/29/25 02:15 EXAM: XR chest 1V portable CLINICAL HISTORY: Sepsis. TECHNIQUE: An X-ray image of the chest was obtained in AP projection. COMPARISON: 08/28/2024 X-ray. FINDINGS: Pulmonary Parenchyma: Both lung lobes are hyperinflated. There is no evidence of consolidation, collapse, or focal opacities. No pulmonary nodules are identified. There is no evidence of pleural effusion or pleural thickening. Heart and Mediastinum: The heart size and shape are normal. There is no mediastinal widening or masses. No hilar or mediastinal lymphadenopathy is seen. Bony Thorax: The bony thorax appears intact, without fractures or deformities. There is a well-defined radiolucency involving the right humeral head. Soft Tissues: The soft tissues overlying the chest wall are unremarkable. IMPRESSION: 1. Emphysematous changes of both lungs (unchanged). 2. No acute cardiopulmonary abnormalities are identified. 3. A well-defined radiolucency involving the right humeral head may be secondary to internal rotation positioning, which may require a dedicated X-ray study if clinically warranted. 4. Otherwise, no time interval changes. Electronically signed by Justen Tobin 04-29-2025 04:16 AM Abdomen/Pelvis CT 04/29/25 02:16 EXAM: CT abd pelvis IV con only CLINICAL HISTORY: eval for pancreatitis TECHNIQUE: Contiguous axial images were obtained from the level of the diaphragm to the pubic symphysis with intravenous contrast. Coronal and sagittal reconstructions were likewise performed and were indicated to increase the sensitivity for detecting clinically relevant pathology. If IV contrast material had not been administered, the likelihood of detecting abnormalities relevant to the patient's condition would have been substantially decreased. The CT scan was performed according to ALARA (as low as reasonably achievable) principles. COMPARISON: 15:24:25 BUSINESS TRAVEL CONSULTANT. FINDINGS: The visualized lung bases are clear. The liver is normal in size and attenuation. No focal liver lesions are seen. There is no intrahepatic or extrahepatic biliary ductal dilatation. The hepatic vasculature is patent. The gallbladder is present. The spleen and adrenal glands are unremarkable. The pancreas appears mildly bulky and shows subtle adjacent fat stranding. Multiple calcific foci are noted involving the pancreas, predominantly the head and uncinate process. There is mild dilatation of the main pancreatic duct up to 4 mm. An approximately 47 x 37 mm well-defined, thick-walled cystic lesion/collection is noted involving the distal body and tail of the pancreas. The kidneys are normal in size and attenuation. There is no hydronephrosis or perinephric fat stranding. No renal calculi or renal masses are identified. The ureters are normal in caliber, and no ureteral calculi are seen. The bladder is normal in contour. Pelvic viscera are unremarkable. No focal or diffuse bowel wall thickening or evidence of bowel obstruction is identified. No imaging evidence of appendicitis. Abdominal and pelvic vasculature is patent. No adenopathy or fluid collections are seen. No aggressive appearing osseous lesions are identified. Multiple small uncomplicated sigmoid colonic diverticulosis. IMPRESSION: 1. The pancreas appears mildly bulky and shows subtle adjacent fat stranding (new changes). Multiple calcific foci are noted involving the pancreas, predominantly the head and uncinate process (stable), suggestive of acute on chronic pancreatitis. 2. A large, well-defined, thick-walled cystic lesion/collection is noted involving the distal body and tail of the pancreas, suggesting the possibility of pseudocyst/walled off necrosis formation (new finding). 3. Multiple small uncomplicated sigmoid colonic diverticulosis (stable). Electronically signed by Danie Hopkins 04-29-2025 03:57 AM Discharge Plan Visit Data Chief Complaint: Abdominal Pain Stated Complaint: Abdominal Pain ED Provider: Cari Quarles Discharge Problem: Hypokalemia, Pancreatitis, Sepsis Patient Disposition: Admitted As Inpatient Condition: Critical Discharge Instructions Interventions: ED Discharge Assessment Last Done: 04/29/25 05:27
[2025-04-29] MEDS: OPTIRAY 320 100ml IV ONE ×2 (02:55→12:19)
[2025-04-29] MEDS: POTASSIUM CHLORIDE / WTR 10 MEQ/100 ML PLCT IV SCH ×2 (03:00→08:43)
[2025-04-29 03:13] LABS: Magnesium 1.7 mg/dl (1.7-2.4)
[2025-04-29] MEDS: SODIUM CHLORIDE 0.9% 1,000 ML IV SCH (03:40)
[2025-04-29] MEDS: CEFEPIME 2000MG 2,000 MG/20 ML SYR IV STA (03:40)
--- NOTE | 2025-04-29 03:56 | History & Physical Report ---
Date of Service April 29, 2025 Assessment & Plan (1) Acute on chronic pancreatitis: (2) Pancreatic pseudocyst: (3) Hypokalemia: (4) History of alcohol abuse: Plan The patient is a 65-year-old male with past medical history including acute on chronic pancreatitis with most recent admission 04/17-04/22/2025, anxiety, GERD, esophagitis, folate deficiency, esophageal dysphagia, vertebral artery stenosis, and pulmonary nodule. The patient presents to the emergency department with complaint of a return of symptoms that prompted this admission from 04/17- 04/22/2025. He complains of epigastric discomfort, generalized abdominal discomfort, and pain bilaterally across his lumbar spine. He had decreased appetite, but he has also had decreased liquid intake as well. Workup in the emergency department included elevated lipase to 44, potassium 2.7, Pro-Isma 6.43. Chest x-ray was negative. CT scan of abdomen pelvis, the pancreas appeared mildly bulky and shows subtle adjacent fat stranding. No changes. Multiple calcific foci are noted involving the pancreas predominantly of the head and uncinate process suggestive of acute on chronic pancreatitis. There is a large well-defined thick walled cystic lesion/collection noted involving the distal body and tail of pancreas, suggesting the possibility of pseudocyst/walled off necrosis formation. WBC was elevated at 21.69. Patient was placed on cefepime 2 g IV, and was then referred for evaluation for admission to the hospitalist service. Acute on chronic pancreatitis- Lipase 244 on admission, will follow serially Most recent admission for same diagnosis with 04/17-04/22/2025. CT abdomen/pelvis notes acute on chronic pancreatitis, and possible pseudocyst versus postop pancreatic necrosis. Will ask radiology to over read the CT and compared to 04/17/2025 CT NPO Cefepime 2 g IV every 12 hours Vancomycin IV per pharmacokinetic monitoring NSS + KCl 20 mEq at 125 mL/h x 2 L Zofran 4 mg IV every 6 hours as needed Pantoprazole 40 mg IV daily Hypokalemia/hypomagnesemia- Potassium 2.7 on admission. Patient intolerant of K riders. Placed on NSS plus KCl 20 mEq at 125 mL/h x 2 L Magnesium 1.7 on admission. Give magnesium sulfate 1 g IV Repeat laboratories in the a.m. History of alcohol abuse- Change folic acid 1 mg p.o. daily to IV daily Change thiamine from 100 mg p.o. daily to IV daily Patient reports no recent alcohol intake Tobacco abuse/COPD NicoDerm patch 21 mg ordered DuoNebs every 2 hours as needed History of Present Illness Chief Complaint: The patient presents to the emergency department with complaint of a return of symptoms that prompted this admission from 04/17-04/22/2025. He complains of epigastric discomfort, generalized abdominal discomfort, and pain bilaterally across his lumbar spine. He had decreased appetite, but he has also had decreased liquid intake as well. Workup in the emergency department included elevated lipase to 44, potassium 2.7, Pro-Isma 6.43. Chest x-ray was negative. CT scan of abdomen pelvis, the pancreas appeared mildly bulky and shows subtle adjacent fat stranding. No changes. Multiple calcific foci are noted involving the pancreas predominantly of the head and uncinate process suggestive of acute on chronic pancreatitis. There is a large well-defined thick walled cystic lesion/collection noted involving the distal body and tail of pancreas, suggesting the possibility of pseudocyst/walled off necrosis formation. Primary Care Provider: LANDON Paredes The patient is a 65-year-old male with past medical history including acute on chronic pancreatitis with most recent admission 04/17-04/22/2025, anxiety, GERD, esophagitis, folate deficiency, esophageal dysphagia, vertebral artery stenosis, and pulmonary nodule. The patient presents to the emergency department with complaint of a return of symptoms that prompted this admission from 04/17- 04/22/2025. He complains of epigastric discomfort, generalized abdominal discomfort, and pain bilaterally across his lumbar spine. He had decreased appetite, but he has also had decreased liquid intake as well. Workup in the emergency department included elevated lipase to 44, potassium 2.7, Pro-Isma 6.43. Chest x-ray was negative. CT scan of abdomen pelvis, the pancreas appeared mildly bulky and shows subtle adjacent fat stranding. No changes. Multiple calcific foci are noted involving the pancreas predominantly of the head and uncinate process suggestive of acute on chronic pancreatitis. There is a large well-defined thick walled cystic lesion/collection noted involving the distal body and tail of pancreas, suggesting the possibility of pseudocyst/walled off necrosis formation. WBC was elevated at 21.69. Patient was placed on cefepime 2 g IV, and was then referred for evaluation for admission to the hospitalist service. Allergies Allergy/AdvReac Type Severity Reaction Status Date / Time hydromorphone Allergy Mild Itching Verified 04/27/25 13:53 sertraline Allergy Mild Abdominal Verified 04/27/25 13:53 Pain Home Medications Medication Instructions Recorded Confirmed Type ipratropium 20 mcg-albuterol 100 1 puff inhalation QID Shortness Of 05/29/24 04/29/25 Rx mcg/actuation mist for inhalation Breath #4 grams (Combivent Respimat) folic acid 1 mg tablet 1 mg PO QAM #90 tabs 08/26/24 04/29/25 Rx thiamine HCl (vitamin B1) 100 mg 100 mg PO QAM #30 tabs 11/12/24 04/29/25 Rx tablet lamotrigine 200 mg tablet 200 mg PO BID #60 tabs 12/12/24 04/29/25 Rx duloxetine 60 mg capsule,delayed 60 mg PO DAILY #90 caps 03/16/25 04/29/25 Rx release levothyroxine 25 mcg tablet 25 mcg PO DAILYBB #90 tabs 03/25/25 04/29/25 Rx (Synthroid) cholecalciferol (vitamin D3) 25 25 mcg PO DAILY #30 caps 03/27/25 04/29/25 Rx mcg (1,000 unit) capsule tramadol 50 mg tablet 50 mg PO Q8H PRN pain #12 tabs 04/27/25 04/29/25 Rx trazodone 50 mg tablet 50 mg PO DAILY #30 tabs 04/27/25 04/29/25 Rx cyanocobalamin (vitamin B-12) 1,000 mcg PO QPM 04/29/25 04/29/25 History 1,000 mcg tablet (Vitamin B-12) pantoprazole 40 mg tablet,delayed 40 mg PO QAM 04/29/25 04/29/25 History release Past Med/Surg History Problem List (Updated 04/29/25 @ 05:12 by Freddy Thomason MD) History of alcohol abuse Pancreatic pseudocyst Hypokalemia (Acute) Epigastric pain Constipation Leukocytosis Prediabetes Pancreatitis (Acute) Decreased pedal pulses Pulmonary nodule GERD without esophagitis Anxiety Mesial temporal sclerosis Stable per 10/18/22 neuro note Folate deficiency Erectile dysfunction Kidney lesion (Acute) Renal Cyst -CT of Abd noted 02/18/21 first describes 7 mm left renal lesion, hyperdense cyst versus solid renal neoplasm. A nonemergent dedicated renal CT scan or MRI is recommended in follow-up -Renal CT 02/19/21-7 mm left renal lesion in question appeared hyperdense to renal parenchyma on the noncontrast portion of the study and did not dem onstrate significant enhancement. This lesion is felt to represent a hyperdense cyst. A 12 month follow-up study would seem prudent. -Renal CT 05/31/21-Stable 9 mm hyperdense/hemorrhagic cyst within the left kidney, There is a 6 mm hypodense lesion within the left kidney which is technically too small to characterize but favors a simple cyst. Tobacco dependence Cricopharyngeal dysphagia Per 08/2022 records- stable; video swallow with cricopharyngeal bar; s/p EGD 07/27/22 with esophageal stenosis which was like cause of the bar seen- s/p dilation- dysphagia improved/resolved Esophageal dysphagia Improved per 08/2022 PCP records Cervical spondylosis Vertebral artery stenosis Per 07/2020 Neck CTA- severe stenosis of the left vertebral artery of the C4 level due to osteophytes Medical History Intermittent claudication Chronic cholecystitis Alcoholism in recovery Tobacco use disorder Seizure disorder Alcohol abuse Hypothyroidism Hypertension Calculus of pancreatic duct Pancreatic duct obstruction Hx of pleural effusion Marijuana use Hx of aspiration pneumonitis 07/2022- treated with abx Poor historian Hx of seizure disorder Last seizure 08/2021- has not had one since started lamictal (did confirmed 10/27/22 with patient's caregiver that he is taking Lamictal daily) Degenerative disc disease History of pancreatitis (~02/2020) S/p ERCP on 07/16/22 with large gallbladder stone removed. Biliary sphincterectomy and stent placed to be removed in 3 months. Thrombocytopenia Depression Macrocytic anemia Surgical History History of esophagogastroduodenoscopy (EGD) 10/19/20 [facility] S/P epidural steroid injection History of colonoscopy Status post tooth extraction Hx of neck surgery (05/2018) cervical fusion (C2-C3?) Full ROM Family History Aunt Parkinson disease Cerebral aneurysm Mother Cerebral aneurysm Depression Anemia Uncle Cerebral aneurysm Other No family history of adverse response to anesthesia Denies family history of Ovarian cancer Prostate cancer Myocardial infarction Breast cancer Lung cancer Colorectal cancer Social History Smoking Status: Current every day smoker Tobacco Type: Cigarettes Age Started Using Tobacco: 17; packs per day: 1; Cigarettes Per Day: 1 pack per day; Second Hand Exposure: Yes; Do You Dip or Chew Tobacco: No; Hx Alcohol Use: Yes Alcohol type: hard liquor Alcohol Intake Frequency Comment: fifth of vodka per week Hx Substance Use: Yes Prescribed Medications: Marijuana Last Used Substance: Days (ago) Last Used Substance Other:: 04/16/25 Substance Use Type Other:: Daily Preferred Language: Spanish Communication Ability: Effective Visual Impairment: No Limitations Hearing Ability: Normal Media Professional Required: No Beliefs That Will Affect Care: None marital status: Single Current Living Situation: Significant Other Current Living Situation Comment: fiance current occupational status: disabled Feels Safe at Home: Yes Childhood Exposure to Second-Hand Smoke: Yes Diet: regular Diet Comment: regular caffeine: No during the past year weight has: remained stable Dental Care, Regularly: No Physical Activity Frequency: Does not Exercise Seatbelt Use: always Sunscreen Use: No Assistive Devices: Cane and Walker Review of Systems Review of Systems: The patient denies chest pain, palpitations, shortness of breath, dyspnea on exertion, cough, lower extremity swelling, sore throat, fevers, chills, sweats, vomiting, diarrhea , constipation, blood in urine or stool, dysuria, urinary frequency or urgency, loss of consciousness, rash, abnormal bruising or bleeding, focal weakness, numbness or tingling in arms or legs, or night sweats. The review of systems is otherwise negative other than for that already noted above, and at least 10 systems have been reviewed. Physical Exam Physical Exam: The patient is awake, looks disheveled, normocephalic and atraumatic, lying in bed and in no acute distress. HEENT--PERRL, EOMI, mucous membranes and oropharynx mildly dry. Neck--supple. No JVD. No bruits. Thyroid normal, trachea midline, no adenopathy. Heart--normal S1 and S2. No murmurs, rubs or gallops. Lungs--clear bilaterally, no respiratory distress, no accessory muscle use. Abdomen--normal bowel sounds and soft. Nontender. Nondistended, no hernias or masses, no organomegaly. Extremities-- No edema. There are good distal pulses b/l. Dermatologic--normal skin turgor, normal color, no abnormal lymph nodes, no rash. Neurologic--cranial nerves II through XII grossly intact. Rheumatologic--normal range of motion. Psychiatric--normal affect. Results & Data Results & Data Vital Signs (Past 12 Hours) Vital Signs Temp Pulse Pulse Resp BP BP Pulse Ox 04/29/25 03:33 103 H 22 131/76 97 04/29/25 03:00 100 H 17 147/76 H 96 04/29/25 02:36 104 H 17 133/68 04/29/25 02:00 105 H 16 132/71 93 04/29/25 01:31 105 H 14 95 04/29/25 01:31 37 C 105 H 14 132/96 95 04/29/25 01:31 37 C 105 H 14 132/96 95 04/29/25 01:25 104 H O2 Del Method 04/29/25 03:33 04/29/25 03:00 04/29/25 02:36 04/29/25 02:00 04/29/25 01:31 04/29/25 01:31 Room Air 04/29/25 01:31 Room Air 04/29/25 01:25 Laboratory Results Laboratory Results WBC 21.69 K/ul (4.8-10.8) H 04/29/25 01:28 RBC 3.81 M/uL (4.70-6.10) L 04/29/25 01:28 Hgb 12.1 g/dl (14.0-18.0) L 04/29/25 01:28 Hct 34.9 % (42.0-52.0) L 04/29/25 01:28 MCV 91.6 fL (80.0-100.0) 04/29/25 01:28 MCH 31.8 pg (25.0-34.0) 04/29/25 01:28 MCHC 34.7 g/dL (32.0-36.0) 04/29/25 01:28 RDW Std Deviation 48.7 fL (36.4-46.3) H 04/29/25 01:28 RDW Coeff of Brianda 14.6 % (11.5-14.5) H 04/29/25 01:28 Plt Count 381 K/uL (130-400) 04/29/25 01:28 MPV 10.0 fL (9.4-12.4) 04/29/25 01:28 Immature Gran % (Auto) 0.9 % 04/29/25 01:28 Neut % (Auto) 79.4 % 04/29/25 01:28 Lymph % (Auto) 8.6 % 04/29/25 01:28 Iron % (Auto) 9.2 % 04/29/25 01:28 Eos % (Auto) 1.6 % 04/29/25 01:28 Baso % (Auto) 0.3 % 04/29/25 01:28 Neut # (Auto) 17.23 K/uL (1.40-6.50) H 04/29/25 01:28 Lymph # (Auto) 1.87 K/uL (1.20-3.40) 04/29/25 01:28 Iron # (Auto) 1.99 K/uL (0.11-0.59) H 04/29/25 01:28 Eos # (Auto) 0.35 K/uL (0.00-0.50) 04/29/25 01:28 Baso # (Auto) 0.06 K/uL (0.00-0.20) 04/29/25 01:28 Immature Gran # (Auto) 0.19 K/uL (0.01-0.20) 04/29/25 01:28 Sodium 136 mmol/L (136-145) 04/29/25 01:28 Potassium 2.7 mmol/L (3.5-5.1) L 04/29/25 01:28 Chloride 98 mmol/L (98-107) 04/29/25 01:28 Carbon Dioxide 31 mmol/L (21-32) 04/29/25 01:28 Anion Gap 7 (3-11) 04/29/25 01:28 BUN 12 mg/dl (6-23) 04/29/25 01:28 Creatinine 0.56 mg/dl (0.6-1.4) L 04/29/25 01:28 Est Cr Clr Drug Dosing 122.4 ml/min 04/29/25 01:28 eGFR 109.38 04/29/25 01:28 BUN/Creatinine Ratio 21.4 (10-20) H 04/29/25 01:28 Glucose 137 mg/dl (70-99(Fasting)) H 04/29/25 01:28 Lactate 1.3 mmol/L (0.4-2.0) 04/29/25 02:30 Calcium 8.8 mg/dl (8.6-10.3) 04/29/25 01:28 Magnesium 1.7 mg/dl (1.7-2.4) 04/29/25 01:28 Total Bilirubin 0.6 mg/dl (0.2-1.0) 04/29/25 01:28 AST 11 U/L (13-39) L 04/29/25 01:28 ALT 10 U/L (7-52) 04/29/25 01:28 Alkaline Phosphatase 112 U/L (34-104) H 04/29/25 01:28 Troponin I High Sens 7.0 pg/ml (0-20) 04/29/25 01:28 Total Protein 6.7 gm/dl (6.0-8.3) 04/29/25 01:28 Albumin 3.2 gm/dl (3.4-5.0) L 04/29/25 01:28 Globulin 3.5 gm/dl (2.5-4.0) 04/29/25 01:28 Albumin/Globulin Ratio 0.9 (0.9-2) 04/29/25 01:28 Lipase 244 U/L (11-82) H 04/29/25 01:28 Procalcitonin 6.43 ng/ml (0-0.5) H 04/29/25 01:28 Urine Color Dark Yellow 04/29/25 01:53 Urine Appearance Clear (Clear) 04/29/25 01:53 Urine pH 6.0 (4.5-7.5) 04/29/25 01:53 Ur Specific [place] 1.031 (1.000-1.030) H 04/29/25 01:53 Urine Protein 1+ (Negative) H 04/29/25 01:53 Urine Glucose (UA) Negative (Negative) 04/29/25 01:53 Urine Ketones Trace (Negative) H 04/29/25 01:53 Urine Blood Negative (Negative) 04/29/25 01:53 Urine Nitrite Negative (Negative) 04/29/25 01:53 Urine Bilirubin 1+ (Negative) H 04/29/25 01:53 Urine Urobilinogen Negative (Negative) 04/29/25 01:53 Ur Leukocyte Esterase Trace (Negative) H 04/29/25 01:53 Urine WBC (Auto) 0-5 /hpf (0-5) 04/29/25 01:53 Urine RBC (Auto) 11-20 /hpf (0-2) H 04/29/25 01:53 U Hyaline Cast (Auto) 0-2 /lpf (0-2) 04/29/25 01:53 U Epithel Cells (Auto) 3-5 /hpf (0-2) H 04/29/25 01:53 Urine Bacteria (Auto) None Seen (None Seen) 04/29/25 01:53 Urine Mucus Present (None Prsent) A 04/29/25 01:53 Urine Comment 04/29/25 01:53 Impressions Chest X-Ray 04/29/25 02:15 EXAM: XR chest 1V portable CLINICAL HISTORY: Sepsis. TECHNIQUE: An X-ray image of the chest was obtained in AP projection. COMPARISON: 08/28/2024 X-ray. FINDINGS: Pulmonary Parenchyma: Both lung lobes are hyperinflated. There is no evidence of consolidation, collapse, or focal opacities. No pulmonary nodules are identified. There is no evidence of pleural effusion or pleural thickening. Heart and Mediastinum: The heart size and shape are normal. There is no mediastinal widening or masses. No hilar or mediastinal lymphadenopathy is seen. Bony Thorax: The bony thorax appears intact, without fractures or deformities. There is a well-defined radiolucency involving the right humeral head. Soft Tissues: The soft tissues overlying the chest wall are unremarkable. IMPRESSION: 1. Emphysematous changes of both lungs (unchanged). 2. No acute cardiopulmonary abnormalities are identified. 3. A well-defined radiolucency involving the right humeral head may be secondary to internal rotation positioning, which may require a dedicated X-ray study if clinically warranted. 4. Otherwise, no time interval changes. Electronically signed by Justen Tobin 04-29-2025 04:16 AM Abdomen/Pelvis CT 04/29/25 02:16 EXAM: CT abd pelvis IV con only CLINICAL HISTORY: eval for pancreatitis TECHNIQUE: Contiguous axial images were obtained from the level of the diaphragm to the pubic symphysis with intravenous contrast. Coronal and sagittal reconstructions were likewise performed and were indicated to increase the sensitivity for detecting clinically relevant pathology. If IV contrast material had not been administered, the likelihood of detecting abnormalities relevant to the patient's condition would have been substantially decreased. The CT scan was performed according to ALARA (as low as reasonably achievable) principles. COMPARISON: 15:24:25 ADULT CAREGIVER. FINDINGS: The visualized lung bases are clear. The liver is normal in size and attenuation. No focal liver lesions are seen. There is no intrahepatic or extrahepatic biliary ductal dilatation. The hepatic vasculature is patent. The gallbladder is present. The spleen and adrenal glands are unremarkable. The pancreas appears mildly bulky and shows subtle adjacent fat stranding. Multiple calcific foci are noted involving the pancreas, predominantly the head and uncinate process. There is mild dilatation of the main pancreatic duct up to 4 mm. An approximately 47 x 37 mm well-defined, thick-walled cystic lesion/collection is noted involving the distal body and tail of the pancreas. The kidneys are normal in size and attenuation. There is no hydronephrosis or perinephric fat stranding. No renal calculi or renal masses are identified. The ureters are normal in caliber, and no ureteral calculi are seen. The bladder is normal in contour. Pelvic viscera are unremarkable. No focal or diffuse bowel wall thickening or evidence of bowel obstruction is identified. No imaging evidence of appendicitis. Abdominal and pelvic vasculature is patent. No adenopathy or fluid collections are seen. No aggressive appearing osseous lesions are identified. Multiple small uncomplicated sigmoid colonic diverticulosis. IMPRESSION: 1. The pancreas appears mildly bulky and shows subtle adjacent fat stranding (new changes). Multiple calcific foci are noted involving the pancreas, predominantly the head and uncinate process (stable), suggestive of acute on chronic pancreatitis. 2. A large, well-defined, thick-walled cystic lesion/collection is noted involving the distal body and tail of the pancreas, suggesting the possibility of pseudocyst/walled off necrosis formation (new finding). 3. Multiple small uncomplicated sigmoid colonic diverticulosis (stable). Electronically signed by Danie Hopkins 04-29-2025 03:57 AM Code Status & VTE Plan Code Status DNR/DNI PG Care Time/CCT Total # of Minutes Spent Total Time Spent with Patient: Total time spent is greater than 50% in coordination of care (as documented) at patient's floor/unit and/or counseling patient: Coding Level of Care Code 03644 INT INP/OBS CARE 3/75MIN Diagnoses Acute on chronic pancreatitis K85.90; K86.1 Pancreatic pseudocyst K86.3 Hypokalemia E87.6 History of alcohol abuse F10.11
--- NOTE | 2025-04-29 04:16 | XRay Report ---
EXAM: XR chest 1V portable CLINICAL HISTORY: Sepsis. TECHNIQUE: An X-ray image of the chest was obtained in AP projection. COMPARISON: 08/28/2024 X-ray. FINDINGS: Pulmonary Parenchyma: Both lung lobes are hyperinflated. There is no evidence of consolidation, collapse, or focal opacities. No pulmonary nodules are identified. There is no evidence of pleural effusion or pleural thickening. Heart and Mediastinum: The heart size and shape are normal. There is no mediastinal widening or masses. No hilar or mediastinal lymphadenopathy is seen. Bony Thorax: The bony thorax appears intact, without fractures or deformities. There is a well-defined radiolucency involving the right humeral head. Soft Tissues: The soft tissues overlying the chest wall are unremarkable. IMPRESSION: 1. Emphysematous changes of both lungs (unchanged). 2. No acute cardiopulmonary abnormalities are identified. 3. A well-defined radiolucency involving the right humeral head may be secondary to internal rotation positioning, which may require a dedicated X-ray study if clinically warranted. 4. Otherwise, no time interval changes. Electronically signed by Justen Tobin 04-29-2025 04:16 AM
[2025-04-29] MEDS: NSS + 20MEQ KCL 20 MEQ/1,000 ML BAG IV SCH (04:34)
[2025-04-29] MEDS ORDERED: ACETAMINOPHEN 1,000 MG/100 ML VIAL IV PRN (05:01)
[2025-04-29] MEDS ORDERED: MoRPHine SULFATE 2 MG/ML CARP IV PRN (05:06)
[2025-04-29] MEDS: MAGNESIUM SULFATE / D5W 1 GM/100 ML BAG IV ONE (05:10)
[2025-04-29] MEDS ORDERED: VANCOMYCIN CONSULT ACTIVE PRN (05:17)
[2025-04-29] MEDS ORDERED: ALBUT/IPRATROP 3MG/0.5MG NEB 3 ML VIAL NEB PRN (05:18)
[2025-04-29] MEDS ORDERED: ONDANSETRON INJ 2 MG/ML 2 ML VIAL IV PRN (06:07)
[2025-04-29] MEDS: Albuterol HFA 8 GM Inhaler (Combivent Respimat P&T Subs) INH SCH (07:41)
[2025-04-29] MEDS: Ipratropium HFA Inhaler (Combivent Respimat P&T Subs) INH SCH (07:41)
[2025-04-29] MEDS: REMOVE NICODERM PATCH SCH (08:09)
[2025-04-29] MEDS: VANCOMYCIN HCL 1,250 MG in SODIUM CHLORIDE 0.9% 500 ML IV ONE (08:09)
[2025-04-29] MEDS: FOLIC ACID 1 MG in SYRINGE 9.8 ML IV SCH (08:10)
[2025-04-29] MEDS: THIAMINE HCL 100 MG in SYRINGE 9 ML IV SCH (08:10)
[2025-04-29] MEDS: lamoTRIgine 100 MG TAB PO SCH (08:11)
[2025-04-29] MEDS: NICOTINE 21 MG/24 HR TDSY TD SCH (08:11)
[2025-04-29] MEDS: PANTOprazole 40 MG/10 ML SYR IV SCH (08:11)
--- NOTE | 2025-04-29 08:48 | Pharmacy Report ---
Pharmacy PK ABX Note - Date of Service April 29, 2025 - Assessment and Plan Assessment 65 year old M receiving vancomycin/cefepime for treatment of possible necrotic pancreatitis. GI consulted. Pertinent microbiologic data includes: blood cultures pending. Day # 1 of antimicrobial therapy. Plan Vancomycin * Loading dose: 1250 mg IV x 1 * Maintenance dose: 1250 mg IV every 12 hours starting 04/29/25 @ 1500 based on estimated pharmacokinetic parameters * Regimen is predicted to achieve target AUC/VIVIAN of 400-600 mg/L.hr * Random level ordered for: 05/01/25 @ 1200. Pharmacy will continue to follow and will adjust dose/frequency as necessary. Thank you. Pharmacy has transitioned to AUC monitoring for vancomycin. AUC/VIVIAN is the preferred PK/PD target and is associated with decreased risk of nephrotoxicity compared to traditional trough targets.
[2025-04-29] MEDS ORDERED: IPRATROPIUM BROMIDE/ALBUTEROL respimat INH INH SCH (09:00)
--- NOTE | 2025-04-29 09:02 | Gastrointestinal Consultation ---
Date of Consultation April 29, 2025 Assessment & Plan (1) Pancreatitis: Plan 65-year-old male with past medical history past alcohol use, pancreatic stones s/p ERCP 2021, acute on chronic pancreatitis with most recent admission 04/17- 04/22/2025, anxiety, GERD, esophagitis, folate deficiency, esophageal dysphagia, vertebral artery stenosis, and pulmonary nodule. Seen today on GI rounds for re- admission for ongoing abdominal pain with Lipase 244, significant leukocytosis of WBC of 21.69k/ul with new large, well-defined, thick-walled cystic lesion/collection is noted involving the distal body and tail of the pancreas, suggesting the possibility of pseudocyst/walled off necrosis formation (new finding). Gallbladder and liver were unremarkable. Pancreas appears mildly bulky and shows subtle adjacent fat stranding. Multiple calcific foci are noted in the pancreas, predominantly the head and uncinate process. There is mild dilatation of the main pancreatic duct up to 4mm. Clinically he reports he's feeling a little better today since starting IVF and antibiotics. (1) Acute on Chronic Pancreatitis with new fluid collection (since 04/18/25). Leukocytosis. Renal function normal. CXR negative for volume overload/HF. - Case reviewed with Dr. Quinonez Gastroenterology. - Recommended checking CT pancreas to better differentiate fluid collection. - Continue with IV fluids as ordered by Primary team. May trial clear liquids as tolerated. - Continue with serial Lipase as ordered by Primary team. - Continue with Anti-emetics. - Thank you for allowing us to participate in the care of this patient. Please call with any acute changes, questions or concerns. Please see addendum below with additional recommendation from my supervising physician. ADDENDUM IMPRESSION: CT Pancreas 04/29/25 1. Acute on chronic interstitial edematous pancreatitis with numerous parenchymal calcifications redemonstrated. Pancreatic ductal dilation is again noted with equivocal stone or stones within the pancreatic duct proximal to the ampulla. 2. 5.5 cm fluid collection adjacent to the pancreatic body and tail suggestive of a pseudocyst. 3. Acute occlusion of the splenic vein, new from 04/17/2025. 4. Mild interstitial pulmonary edema with bibasilar atelectasis and trace pleural effusions. 5. Small pericardial effusion. 6. Reactive upper abdominal lymphadenopathy. NOTE - Incidental finding of 1.2 cm exophytic hyperdense lesion of the posterior interpolar left kidney suggestive of a complex cyst. Reviewed with Dr. Quinonez. Findings consistent with Pseudocyst. Therefore given lack of necrosis, suspect leukocytosis is related inflammation more so than infection. From GI perspective may DC antibiotics. Patient reports he's hungry on afternoon rounds. Recommend trial of Clear fluids today. Recommended outpatient f/u with ERCP Re: Pancreatic Stones. He may follow up with Dr. Maame YIN who he previously underwent ERCP with in 2021. Continue to follow low fat diet. Recommend avoidance of alcohol and tobacco products. Continue supportive treatment with analgesics and anti-emetics by primary team. In regards to acute splenic vein occlusion. We'll discuss with hospitalist care team for proper management of this. Incidental finding of complex renal cyst - Recommend f/u with Urology. Please see addendum below with additional recommendation from my supervising physician. Supervising Physician Co-Signing Physician Notes Patient is a very pleasant 65-year-old gentleman we are asked to see regarding acute on chronic pancreatitis. He has a history of heavy alcohol use in the past. He has stopped drinking over a year ago. Unfortunately he continues to get episodes of pancreatitis. He was recently admitted and discharged but states his pain worsened which brought him back to the emergency room. He was found to have an elevated lipase. His white count was elevated. Initial CT was concerning for cyst formation versus necrosis. Today, he underwent a pancreatic CT. This revealed no necrosis, most likely pseudocyst formation, small stones in either the CBD/PD and a new splenic vein thrombus. Currently, he is feeling better. He still has epigastric pain as well as right sided abdominal pain with palpation. He is hungry and would like to try clear liquids. Given that there is no indication that he has pancreatic necrosis, I think we can stop his antibiotics. I do suspect his white count is elevated secondary to his inflammatory process. I suspect he will eventually need an EUS plus or minus E PURSE MAKER which can be done as an outpatient. He also has now a new splenic vein thrombus most likely as a result of his pancreatitis. This is a new finding since his last admission. There is no consensus on routine anticoagulation for splenic vein thrombosis. While anticoagulation can reduce the risks of portal hypertension, it does not necessarily lower the risk of variceal bleeding. I think in this case, it would be reasonable to watch him for now and monitor him for any progression of the thrombus. History of Present Illness Reason for Consultation: Sepsis, Pancreatitis, Hypokalemia Requesting Physician: Dr. Mccollum Attending Physician: Amada Coker MD History of Present Illness 65-year-old male with past medical history including acute on chronic pancr eatitis with most recent admission 04/17-04/22/2025, anxiety, GERD, esophagitis, folate deficiency, esophageal dysphagia, vertebral artery stenosis, and pulmonary nodule. Seen today on GI rounds for re-admission for ongoing abdominal pain with new findings of fluid collection on imaging. Patient returned to ER with ongoing epigastric pain with radiation to back associated with nausea, vomiting and poor PO intake. He was noted to have significant leukocytosis with WBC of 21.69k/ul with new fluid collection within pancreas measuring 47x 37mm. Gallbladder and liver were unremarkable. Pancreas appears mildly bulky and shows subtle adjacent fat stranding. Multiple calcific foci are noted in the pancreas, predominatly the head and uncinate process. There is mild dilatation of the main pancreatic duct up to 4mm. He was admitted to floor. Reviewed hospitalist notes who started patient of Cefepime and Vancomycin, maintenance fluids with NSS and [id number] at 125ml/hr, Zofran as needed. Clinically he reports he was in his typical health without concern prior to recent hospitalization for pancreatitis. Upon discharge he continued to have worsening abdominal pain and loss of appetite eating very little over the last week. Since return to hospital yesterday he's been started on fluids, electrolyte replacement and antibiotics. Patient reports he's feeling better today compared to yesterday. Has continued nausea and abdominal discomfort. He denies any fevers, SOB, CP, vomiting, melena or hematochezia or edema. Family history - Denies GI cancers, pancreatic issues. Liver issues. Social history - Tobacco use, just under 1 PPD. Former alcohol use. Drank 3 5ths a week, > 5 drinks a day for several years. Quit 14 months ago. No drug use. Surgical history - EGD/Colonoscopy, ERCP, Teeth extraction. Cervical fusion. Pertinent diagnostics CBC - 04/29/25 - Hgb 12.1 g/dl, Hct 34.9, Plt 381, WBC 21.69k/ul Neutro 17.23 k/ul. CBC - 04/22/25 - Hgb 12.9 g/dl Hct 35.7%, Plt 255k/ul, WBC 13.23k/ul Neutro 9.07 k/ul. BMP - 04/29/25 - Glucose 137, BUN 12, Cr 0.56, Cl 98, CO2 31, Na 136, K 2.7. Lipid 2023 - TG 94, T Chol 170, LDL 108, HDL 43. 04/18/25 - TG 92 Lipase 04/17/25 - 154, 04/18/25 71, 04/19/25 92, 04/20/25 63, 04/21/25 29, 04/29/[address] abd/pelvis 04/29/25 The visualized lung bases are clear. The liver is normal in size and attenuation. No focal liver lesions are seen. There is no intrahepatic or extrahepatic biliary ductal dilatation. The hepatic vasculature is patent. The gallbladder is present. The spleen and adrenal glands are unremarkable. The pancreas appears mildly bulky and shows subtle adjacent fat stranding. Multiple calcific foci are noted involving the pancreas, predominantly the head and uncinate process. There is mild dilatation of the main pancreatic duct up to 4 mm. An approximately 47 x 37 mm well-defined, thick-walled cystic lesion/collection is noted involving the distal body and tail of the pancreas. The kidneys are normal in size and attenuation. There is no hydronephrosis or perinephric fat stranding. No renal calculi or renal masses are identified. The ureters are normal in caliber, and no ureteral calculi are seen. The bladder is normal in contour. Pelvic viscera are unremarkable. No focal or diffuse bowel wall thickening or evidence of bowel obstruction is identified. No imaging evidence of appendicitis. Abdominal and pelvic vasculature is patent. No adenopathy or fluid collections are seen. No aggressive appearing osseous lesions are identified. Multiple small uncomplicated sigmoid colonic diverticulosis. IMPRESSION: 1. The pancreas appears mildly bulky and shows subtle adjacent fat stranding (new changes). Multiple calcific foci are noted involving the pancreas, predominantly the head and uncinate process (stable), suggestive of acute on chronic pancreatitis. 2. A large, well-defined, thick-walled cystic lesion/collection is noted involving the distal body and tail of the pancreas, suggesting the possibility of pseudocyst/walled off necrosis formation (new finding). 3. Multiple small uncomplicated sigmoid colonic diverticulosis (stable). CXR 04/29/25 IMPRESSION: 1. Emphysematous changes of both lungs (unchanged). 2. No acute cardiopulmonary abnormalities are identified. 3. A well-defined radiolucency involving the right humeral head may be secondary to internal rotation positioning, which may require a dedicated X-ray study if clinically warranted. 4. Otherwise, no time interval changes. ERCP 07/2022 Dr. Isabel 2021 Panreatic Calcification. Pancreatic stone removed. stents placed in pancreatic duct and bile duct. 10/2022 Dr. Isabel 2022 - 3 month f/u ERCP. Two stents removed. pancreatic stones removed. pancreatic stent placed. EGD Case Indication: Dysphagia 07/2022 Impression: - Benign-appearing esophageal stenosis. Dilated. - Gastritis. - Normal examined duodenum. - No specimens collected. Recommendation: - Return patient to [facility] for ongoing care. - Advance diet as tolerated. - Continue present medications. - Repeat upper endoscopy PRN for retreatment. - Return to primary care physician as previously scheduled. Colonoscopy Case 05/23/21 Indication: ERIC Findings: The perianal and digital rectal examinations were normal. A 4 mm polyp was found in the cecum. The polyp was sessile. The polyp was removed with a cold snare. Resection and retrieval were complete. Non-bleeding internal hemorrhoids were found during retroflexion. The hemorrhoids were small. Impression: - One 4 mm polyp in the cecum, removed with a cold snare. Resected and retrieved. - Non-bleeding internal hemorrhoids. Recommendation: - Resume previous diet. - Continue present medications. - Repeat colonoscopy for surveillance based on pathology results. - Return to primary care physician as previously scheduled. Path: Tubular Adenoma. Recommended 5 year f/u. Allergies Allergy/AdvReac Type Severity Reaction Status Date / Time hydromorphone Allergy Mild Itching Verified 04/27/25 13:53 sertraline Allergy Mild Abdominal Verified 04/27/25 13:53 Pain Home Medications Medication Instructions Recorded Confirmed Type ipratropium 20 mcg-albuterol 100 1 puff inhalation QID Shortness Of 05/29/24 04/29/25 Rx mcg/actuation mist for inhalation Breath #4 grams (Combivent Respimat) folic acid 1 mg tablet 1 mg PO QAM #90 tabs 08/26/24 04/29/25 Rx thiamine HCl (vitamin B1) 100 mg 100 mg PO QAM #30 tabs 11/12/24 04/29/25 Rx tablet lamotrigine 200 mg tablet 200 mg PO BID #60 tabs 12/12/24 04/29/25 Rx duloxetine 60 mg capsule,delayed 60 mg PO DAILY #90 caps 03/16/25 04/29/25 Rx release levothyroxine 25 mcg tablet 25 mcg PO DAILYBB #90 tabs 03/25/25 04/29/25 Rx (Synthroid) cholecalciferol (vitamin D3) 25 25 mcg PO DAILY #30 caps 03/27/25 04/29/25 Rx mcg (1,000 unit) capsule tramadol 50 mg tablet 50 mg PO Q8H PRN pain #12 tabs 04/27/25 04/29/25 Rx trazodone 50 mg tablet 50 mg PO DAILY #30 tabs 04/27/25 04/29/25 Rx cyanocobalamin (vitamin B-12) 1,000 mcg PO QPM 04/29/25 04/29/25 History 1,000 mcg tablet (Vitamin B-12) pantoprazole 40 mg tablet,delayed 40 mg PO QAM 04/29/25 04/29/25 History release Patient History Medical History Intermittent claudication Chronic cholecystitis Alcoholism in recovery Tobacco use disorder Seizure disorder Alcohol abuse Hypothyroidism Hypertension Calculus of pancreatic duct Pancreatic duct obstruction Hx of pleural effusion Marijuana use Hx of aspiration pneumonitis 07/2022- treated with abx Poor historian Hx of seizure disorder Last seizure 08/2021- has not had one since started lamictal (did confirmed 10/27/22 with patient's caregiver that he is taking Lamictal daily) Degenerative disc disease History of pancreatitis (~02/2020) S/p ERCP on 07/16/22 with large gallbladder stone removed. Biliary sphincterectomy and stent placed to be removed in 3 months. Thrombocytopenia Depression Macrocytic anemia Surgical History History of esophagogastroduodenoscopy (EGD) 10/19/20 [facility] S/P epidural steroid injection History of colonoscopy Status post tooth extraction Hx of neck surgery (05/2018) cervical fusion (C2-C3?) Full ROM Family History Aunt Parkinson disease Cerebral aneurysm Mother Cerebral aneurysm Depression Anemia Uncle Cerebral aneurysm Other No family history of adverse response to anesthesia Denies family history of Ovarian cancer Prostate cancer Myocardial infarction Breast cancer Lung cancer Colorectal cancer Social History Smoking Status: Current every day smoker Tobacco Type: Cigarettes Age Started Using Tobacco: 17; packs per day: 1; Cigarettes Per Day: 1 pack per day; Second Hand Exposure: No; Do You Dip or Chew Tobacco: No; Hx Alcohol Use: Yes Alcohol type: hard liquor Alcohol Intake Frequency Comment: fifth of vodka per week Hx Substance Use: Yes Prescribed Medications: Marijuana Last Used Substance: Days (ago) Last Used Substance Other:: 04/16/25 Substance Use Type Other:: Daily Preferred Language: [place] Communication Ability: Effective Visual Impairment: No Limitations Hearing Ability: Normal Motor Runner Required: No Beliefs That Will Affect Care: None marital status: Single Current Living Situation: Significant Other Current Living Situation Comment: fiance current occupational status: disabled Feels Safe at Home: Yes Childhood Exposure to Second-Hand Smoke: Yes Diet: regular Diet Comment: regular caffeine: No during the past year weight has: remained stable Dental Care, Regularly: No Physical Activity Frequency: Does not Exercise Seatbelt Use: always Sunscreen Use: No Assistive Devices: Cane Review of Systems Review of Systems: See HPI Physical Exam Physical Exam: Constitutional: NAD. Alert. Answering questions appropriately. Respiratory: Breathing is even, non-labored. Lungs garcia are clear to auscultation anteriorly. Cardiovascular: Regular Rate and Rhythm, no murmurs, rubs or gallops appreciated. Gastrointestinal (Abdomen): Normoactive bowel sounds x4, soft, non-distended + Epigastric tenderness. No rebound tenderness. Musculoskeletal: Lying in bed comfortably. No peripheral edema. Results & Data Vital Signs (Past 12 Hours) Vital Signs Temp Pulse Pulse Resp BP BP Pulse Ox 04/29/25 07:44 97 H 17 94 04/29/25 07:35 97.7 F 90 18 124/74 96 04/29/25 06:10 97.7 F 96 H 18 181/81 H 97 04/29/25 05:44 95 H 04/29/25 04:57 102 H 16 155/81 H 99 04/29/25 04:06 107 H 23 166/91 H 97 04/29/25 03:33 103 H 22 131/76 97 04/29/25 03:00 100 H 17 147/76 H 96 04/29/25 02:42 97.7 F 96 H 18 181/81 H 97 04/29/25 02:36 104 H 17 133/68 04/29/25 02:00 105 H 16 132/71 93 04/29/25 01:31 105 H 14 95 04/29/25 01:31 98.6 F 105 H 14 132/96 95 04/29/25 01:31 98.6 F 105 H 14 132/96 95 04/29/25 01:25 104 H O2 Del Method FiO2 04/29/25 07:44 Room Air 21 04/29/25 07:35 Room Air 04/29/25 06:10 Room Air 04/29/25 05:44 04/29/25 04:57 04/29/25 04:06 04/29/25 03:33 04/29/25 03:00 04/29/25 02:42 Room Air 04/29/25 02:36 04/29/25 02:00 04/29/25 01:31 04/29/25 01:31 Room Air 04/29/25 01:31 Room Air 04/29/25 01:25 PG Care Time/CCT Total # of Minutes Spent Total Time Spent with Patient: Total time spent is greater than 50% in coordination of care (as documented) at patient's floor/unit and/or counseling patient: Coding Level of Care Code 32629 IN/OBS CONSULT LVL 4,60M Diagnoses Pancreatitis K85.90
[2025-04-29] MEDS ORDERED: IPRATROPIUM BROMIDE HFA INHALER INH PRN (11:00)
[2025-04-29] MEDS ORDERED: ALBUTEROL HFA 8 GM INHALER INH PRN (11:08)
--- NOTE | 2025-04-29 13:14 | CT Scan Report ---
CT pancreas 3-phase wo/w con HISTORY: 65 years-old Male Differentiate WON vs Pseudocyst acute mid abdominal pain patient with his tory of pancreatitis COMPARISON: 04/29/2025, 04/17/2025 TECHNIQUE: Multiple axial CT images of the abdomen were obtained with and without IV contrast utilizi pancreatic protocol. Oral contrast also used. A dose lowering technique was used consistent with [facility] principals of [place]. FINDINGS: Small pericardial effusion. Trace pleural effusions with mild dependent subsegmental bibasilar atelec tasis and intralobular septal thickening. No pneumatosis or pneumoperitoneum. Unremarkable spleen, ad renal glands and liver. Unchanged subcentimeter calcifications of the hepatic dome. Patency of the he patic and portal veins. Occlusion of the splenic plane on image 97 series 7 is new compared to 025 study. Retained contrast noted within the bilateral renal collecting systems. Bilateral perinephric strandin g. 1.2 cm exophytic hyperdense lesion of the posterior interpolar left kidney suggestive of a complex cyst. Atherosclerosis of the aorta and branch vessels. Mild nonspecific distal esophageal wall thick ening. There is mild wall thickening of the proximal gastric body which is likely reactive. No bowel obstruction. Normal appendix. Small fat filled umbilical hernia. Periportal and gastrohepatic lymph n odes measuring up to 10 mm are likely reactive. Acute on chronic pancreatitis with scattered parenchymal calcifications of the pancreas again noted. Pancreatic duct measures up to approximately 4 mm. Tapered narrowing of the pancreatic duct within th e ectatic just proximal to the ampulla. There may be a stone or stones present within the common bile duct proximal to the ampulla. No definite pancreatic mass. There is homogeneous enhancement througho ut the pancreas. Peripherally enhancing fluid collection within the lesser sac pancreatic body and ta il measures 5.5 x 4.8 x 4.5 cm. This is new from 04/17/2025. Trace abdominal pelvic ascites. No acute fracture. IMPRESSION: 1. Acute on chronic interstitial edematous pancreatitis with numerous parenchymal calcifications rede monstrated. Pancreatic ductal dilation is again noted with equivocal stone or stones within the pancr eatic duct proximal to the ampulla. 2. 5.5 cm fluid collection adjacent to the pancreatic body and tail suggestive of a pseudocyst. 3. Acute occlusion of the splenic vein, new from 04/17/2025. 4. Mild interstitial pulmonary edema with bibasilar atelectasis and trace pleural effusions. 5. Small pericardial effusion. 6. Reactive upper abdominal lymphadenopathy. ACT 112: Negative or not required by law. The above report was generated using voice recognition software. It may contain grammatical, syntax o r spelling errors. Electronically signed by: Dewayne Gonzales M.D. 04/29/2025 1:13 PM
[2025-04-29] MEDS: VANCOMYCIN HCL 1,250 MG in SODIUM CHLORIDE 0.9% 250 ML IV SCH (15:46)
[2025-04-29] MEDS: MoRPHine SULFATE 4 MG/ML 1 ML CARP\\VIAL IV PRN (15:50)
[2025-04-29] MEDS ORDERED: CEFEPIME 2000MG 2,000 MG/20 ML SYR IV SCH (18:00)
--- NOTE | 2025-04-29 19:12 | History & Physical Bridge Note ---
Date of Service April 29, 2025 History & Physical Bridge Note I have examined the patient, reviewed the History & Physical and in the interval since the performance of the History & Physical I have noted the following changes of clinical significance: Patient continues to have significant pain requiring IV pain medicine. He reports he has not moved his bowels really and about a week. He did tolerate some clear liquids for dinner as ordered by GI. I discussed his care with the GI PA. Vitals reviewed Gen: AAOx3, NAD HEENT: Anicteric sclerae, EOMI CV: RRR no mgr nl S1S2 Pulm: CTAB no wcr Abd: +BS soft positive TTP in epigastric and LUQ region without guarding rebound Ext: No edema Skin: No rashes, warm/dry Neuro: Full strength throughout CT pancreas reviewed 65-year-old male here with acute on chronic pancreatitis with pseudocyst and splenic vein thrombosis - Continue IV pain control, IV fluids - Advance diet to clear liquids - Will eventually need evaluation for ERCP/EUS and may be pseudocyst drainage - After discussion with GI, will hold off on anticoagulation for splenic vein thrombosis as this may increase his risk for bleeding. He is at risk for portal hypertension development with having splenic vein thrombosis - Can discontinue IV antibiotics as leukocytosis thought to be secondary to inflammation with pancreatitis but not true infection
[2025-04-29] MEDS: SENNA 8.6 MG TAB PO SCH (21:00)
[2025-04-30] MEDS: LEVOTHYROXINE SODIUM 25 MCG TABLET PO SCH (06:11)
[2025-04-30 06:23] LABS: Hematocrit (blood only) 29.1 % (42.0-52.0); Hemoglobin 9.8 g/dl (14.0-18.0); Immature Granulocytes # (auto) 0.10 K/uL (0.01-0.20); Immature Granulocytes % (auto) 0.8 %; Mean Corpuscular Hemoglobin 31.4 pg (25.0-34.0); Mean Corpuscular Volume 93.3 fL (80.0-100.0); Platelet Count 316 K/uL (130-400); RDW Standard Deviation 51.1 fL (36.4-46.3); Red Blood Count 3.12 M/uL (4.70-6.10); White Blood Count 13.31 K/ul (4.8-10.8)
[2025-04-30 07:02] LABS: Alanine Aminotransferase 7.0 U/L (7-52); Albumin Globulin Ratio 1.1 (0.9-2); Albumin Level 2.9 gm/dl (3.4-5.0); Alkaline Phosphatase 97.0 U/L (34-104); Anion Gap 5.0 (3-11); Bilirubin,Total 0.7 mg/dl (0.2-1.0); Blood Urea Nitrogen 4.0 mg/dl (6-23); Calcium 8.1 mg/dl (8.6-10.3); Carbon Dioxide 25.0 mmol/L (21-32); Chloride 106.0 mmol/L (98-107); Creatinine Clr Calc Pharmacy 167.2 ml/min; Globulin 2.7 gm/dl (2.5-4.0); Glucose 90.0 mg/dl (70-99(Fasting)); Lipase 66.0 U/L (11-82); Magnesium 1.8 mg/dl (1.7-2.4); Potassium 3.9 mmol/L (3.5-5.1); Sodium 136.0 mmol/L (136-145); Total Protein 5.6 gm/dl (6.0-8.3)
--- NOTE | 2025-04-30 10:48 | Gastroenterology Progress Note ---
Date of Service April 30, 2025 Assessment & Plan (1) Pancreatitis: (2) Peripancreatic fluid collection: (3) Complex renal cyst: Plan 65-year-old male with past medical history past alcohol use, pancreatic stones s/p ERCP 2021, acute on chronic pancreatitis with most recent admission 04/17- 04/22/2025, anxiety, GERD, esophagitis, folate deficiency, esophageal dysphagia, vertebral artery stenosis, and pulmonary nodule. Seen today on GI rounds for 1 day follow up of acute on chronic pancreatitis with acute peripancreatic fluid collection. He reports he's improving today with better tolerance of clear liquids. He's till using pain medications for abdominal pain but this is lessening in severity. (1) Acute on Chronic Pancreatitis with 5.5cm acute peripancreatic fluid collection and acute splenic vein occlusion (new since 04/18/25). Lipase improved from 244 to 66. Leukocytosis improving from 21k/ul to 13k/ul. Hgb mildly decreased from 12.1 to 9.8g/dl today (Suspected to be dilutional - denies melena/hematochezia). Renal function normal. CXR negative for volume over load/HF. - Case reviewed with Dr. Quinonez [facility]. - Acute Kalpesh-pancreatic fluid collections are often sterile and self limited. Would consider re-imaging for worsening symptoms or s/s of infection to re- assess for signs of infection (gas within kalpesh-pancreatic fluid collection, bacteremia, septic shock, clinical deterioration) which in case would require broad spectrum antibiotics and possible drainage endoscopically vs IR. - In regards to Splenic vein thrombosis. No clear role for anticoagulation in this setting. Hold off on AC at this time. - Continue to advance diet as tolerated along with supportive analgesics/anti- emetics as needed by primary care team. - Continue to monitor clinical symptoms and s/s of complications. - Continue to trend CBC (f/u Hgb/WBC), CMP, Lipase, Mg as ordered by Primary team. - Recommend out patient f/u with Dr. Maame YIN for possible EUS/ERCP in follow up for possible clearance of pancreatic/CBD stones and/or drainage of cyst if clinically warranted (ie, persistent mass effect/pain/early satiety). There is no signs of significant obstruction, cholangitis or LFT elevation currently. I have created a task through our office to arrange this and patient is aware of recommendations. - We also recommended other lifestyle recommendations to prevent recurrence of pancreatitis including low fat diet, cessation of tobacco products and ongoing avoidance of alcohol. Understanding voiced. - Thank you for allowing us to participate in the care of this patient. Please call with any acute changes, questions or concerns. Please see addendum below with additional recommendation from my supervising physician. (2) Complex Left Renal Cyst - Recommended follow up with Urology. Reviewed with hospitalist team which will assist in outpatient referral. Appreciate their assistance. Admission and Anticipated Discharge Date Admission Date: April 29, 2025 Supervising Physician Co-Signing Physician Notes Patient looks better today. He still has some epigastric and left upper quadrant abdominal pain but is hungry and would like to try solid food. I will order him a low-fat diet starting at dinnertime tonight. His lipase has improved. His hemoglobin and hematocrit have trended downward which is most likely hemodilution. CT addendum noted. He will need a follow-up CT scan of his pancreas in 2 weeks to assess this fluid collection. Hopefully he can go home tomorrow if he tolerates his diet tonight. He will need outpatient follow- up for an EUS plus or minus ERCP. Subjective 65-year-old male with past medical history including acute on chronic pancreatitis with most recent admission 04/17-04/22/2025, anxiety, GERD, esophagitis, folate deficiency, esophageal dysphagia, vertebral artery stenosis, and pulmonary nodule. Seen today on GI rounds for re-admission for ongoing abdominal pain with new findings of fluid collection on imaging. HPI 04/30/25 Patient seen today for 1 day follow up of acute pancreatitis with acute peripancreatic fluid collection on Pancreas CT. No obvious signs of necrosis or infection noted. He was incidentally found to have an acute splenic vein thrombosis. No clear benefit to adding anticoagulation in this setting. He was also incidentally found to have a complex left renal cyst. No previous urology w/u noted. Recommended f/u with urology for further recommendations. Clinically he seems to be improving. He tolerated clear liquids yesterday without worsening of pain, nausea or vomiting. We also held antibiotics per AGA recommendations for acute peripancreatic fluid collections. Today his CBC revealed improvement in leukocytosis with WBC reducing from 21k/ul to 13k/ul. Lipase dropped from 244 to 66. Renal function stable. Potassium improved from 2.7 to 3.9. He continues to have epigastric pain but this is improving in severity in comparison to yesterday. He denies any fevers, chills, SOB, CP, Nausea, vomiting, melena or hematochezia. Pertinent diagnostics reviewed. CT Pancreas 04/29/25 ADDENDUM Correction: IMPRESSION 2. 5.5 cm fluid collection adjacent to the pancreatic body and tail is technically compatible with an acute peripancreatic fluid collection based on time interval rather than a pseudocyst which develops after 4 weeks (please see the revised Royal classification of acute pancreatitis for reference). 1. Acute on chronic interstitial edematous pancreatitis with numerous parenchymal calcifications redemonstrated. Pancreatic ductal dilation is again noted with equivocal stone or stones within the pancreatic duct proximal to the ampulla. 2. 5.5 cm fluid collection adjacent to the pancreatic body and tail suggestive of a pseudocyst. 3. Acute occlusion of the splenic vein, new from 04/17/2025. 4. Mild interstitial pulmonary edema with bibasilar atelectasis and trace pleural effusions. 5. Small pericardial effusion. 6. Reactive upper abdominal lymphadenopathy. NOTE - Incidental finding of 1.2 cm exophytic hyperdense lesion of the posterior interpolar left kidney suggestive of a complex cyst. CBC - 04/30/25 - Hgb 9.8 (down from 12.1g/dl), Hct 29.1 (34.9%), 13.31k/ul (21.69.k/ul), Plt 316k/ul CMP - 04/30/25 - BUN 4 Cr 0.42, Cl106, CO2 25, Na 136, K 3.9 (up from 2.7). T- Bili 0.7, AST 11, ALT 7, Alk Phos 97, Albumin 2.9. Lipase 04/30/25 - 66. Initial GI HPI 04/29/25 Patient returned to ER with ongoing epigastric pain with radiation to back associated with nausea, vomiting and poor PO intake. He was noted to have significant leukocytosis with WBC of 21.69k/ul with new fluid collection within pancreas measuring 47x 37mm. Gallbladder and liver were unremarkable. Pancreas appears mildly bulky and shows subtle adjacent fat stranding. Multiple calcific foci are noted in the pancreas, predominatly the head and uncinate process. There is mild dilatation of the main pancreatic duct up to 4mm. He was admitted to floor. Reviewed hospitalist notes who started patient of Cefepime and Vancomycin, maintenance fluids with NSS and [id number] at 125ml/hr, Zofran as needed. Clinically he reports he was in his typical health without concern prior to recent hospitalization for pancreatitis. Upon discharge he continued to have worsening abdominal pain and loss of appetite eating very little over the last week. Since return to hospital yesterday he's been started on fluids, electrolyte replacement and antibiotics. Patient reports he's feeling better today compared to yesterday. Has continued nausea and abdominal discomfort. He denies any fevers, SOB, CP, vomiting, melena or hematochezia or edema. Family history - Denies GI cancers, pancreatic issues. Liver issues. Social history - Tobacco use, just under 1 PPD. Former alcohol use. Drank 3 5ths a week, > 5 drinks a day for several years. Quit 14 months ago. No drug use. Surgical history - EGD/Colonoscopy, ERCP, Teeth extraction. Cervical fusion. Pertinent diagnostics CBC - 04/29/25 - Hgb 12.1 g/dl, Hct 34.9, Plt 381, WBC 21.69k/ul Neutro 17.23 k/ul. CBC - 04/22/25 - Hgb 12.9 g/dl Hct 35.7%, Plt 255k/ul, WBC 13.23k/ul Neutro 9.07 k/ul. BMP - 04/29/25 - Glucose 137, BUN 12, Cr 0.56, Cl 98, CO2 31, Na 136, K 2.7. Lipid 2023 - TG 94, T Chol 170, LDL 108, HDL 43. 04/18/25 - TG 92 Lipase 04/29/25 - 244, 04/17/25 - 154, 04/18/25 71, 04/19/25 92, 04/20/25 63, 04/21/25 29, 04/29/[address] abd/pelvis 04/29/25 The visualized lung bases are clear. The liver is normal in size and attenuation. No focal liver lesions are seen. There is no intrahepatic or extrahepatic biliary ductal dilatation. The hepatic vasculature is patent. The gallbladder is present. The spleen and adrenal glands are unremarkable. The pancreas appears mildly bulky and shows subtle adjacent fat stranding. Multiple calcific foci are noted involving the pancreas, predominantly the head and uncinate process. There is mild dilatation of the main pancreatic duct up to 4 mm. An approximately 47 x 37 mm well-defined, thick-walled cystic lesion/collection is noted involving the distal body and tail of the pancreas. The kidneys are normal in size and attenuation. There is no hydronephrosis or perinephric fat stranding. No renal calculi or renal masses are identified. The ureters are normal in caliber, and no ureteral calculi are seen. The bladder is normal in contour. Pelvic viscera are unremarkable. No focal or diffuse bowel wall thickening or evidence of bowel obstruction is identified. No imaging evidence of appendicitis. Abdominal and pelvic vasculature is patent. No adenopathy or fluid collections are seen. No aggressive appearing osseous lesions are identified. Multiple small uncomplicated sigmoid colonic diverticulosis. IMPRESSION: 1. The pancreas appears mildly bulky and shows subtle adjacent fat stranding (new changes). Multiple calcific foci are noted involving the pancreas, predominantly the head and uncinate process (stable), suggestive of acute on chronic pancreatitis. 2. A large, well-defined, thick-walled cystic lesion/collection is noted involving the distal body and tail of the pancreas, suggesting the possibility of pseudocyst/walled off necrosis formation (new finding). 3. Multiple small uncomplicated sigmoid colonic diverticulosis (stable). CXR 04/29/25 IMPRESSION: 1. Emphysematous changes of both lungs (unchanged). 2. No acute cardiopulmonary abnormalities are identified. 3. A well-defined radiolucency involving the right humeral head may be secondary to internal rotation positioning, which may require a dedicated X-ray study if clinically warranted. 4. Otherwise, no time interval changes. ERCP 07/2022 Dr. Isabel 2021 Panreatic Calcification. Pancreatic stone removed. stents placed in pancreatic duct and bile duct. 10/2022 Dr. Isabel 2022 - 3 month f/u ERCP. Two stents removed. pancreatic stones removed. pancreatic stent placed. EGD Case Indication: Dysphagia 07/2022 Impression: - Benign-appearing esophageal stenosis. Dilated. - Gastritis. - Normal examined duodenum. - No specimens collected. Recommendation: - Return patient to hospital [facility] for ongoing care. - Advance diet as tolerated. - Continue present medications. - Repeat upper endoscopy PRN for retreatment. - Return to primary care physician as previously scheduled. Colonoscopy Case 05/23/21 Indication: ERIC Findings: The perianal and digital rectal examinations were normal. A 4 mm polyp was found in the cecum. The polyp was sessile. The polyp was removed with a cold snare. Resection and retrieval were complete. Non-bleeding internal hemorrhoids were found during retroflexion. The hemorrhoids were small. Impression: - One 4 mm polyp in the cecum, removed with a cold snare. Resected and retrieved. - Non-bleeding internal hemorrhoids. Recommendation: - Resume previous diet. - Continue present medications. - Repeat colonoscopy for surveillance based on pathology results. - Return to primary care physician as previously scheduled. Path: Tubular Adenoma. Recommended 5 year f/u. Review of Systems Review of Systems: See HPI Physical Exam Physical Exam: Constitutional: NAD. Alert. Answering questions appropriately. Respiratory: Breathing is even, non-labored. Lungs garcia are clear to auscultation anteriorly. Cardiovascular: Regular Rate and Rhythm, no murmurs, rubs or gallops appreciated. Gastrointestinal (Abdomen): Normoactive bowel sounds x4, soft, non-distended + Epigastric tenderness. No rebound tenderness. Musculoskeletal: Lying in bed comfortably. No peripheral edema. Results & Data Results & Data Vital Signs (Past 12 Hours) Vital Signs Temp Pulse Resp BP BP Pulse Ox O2 Del Method 04/30/25 08:00 Room Air 04/30/25 07:36 98.4 F 102 H 18 118/71 95 Room Air 04/30/25 03:00 98.6 F 92 H 17 129/66 97 Room Air 04/29/25 22:50 98.4 F 108 H 17 146/76 H 95 Room Air PG Care Time/CCT Total # of Minutes Spent Total Time Spent with Patient: Total time spent is greater than 50% in coordination of care (as documented) at patient's floor/unit and/or counseling patient: Coding Level of Care Code 70521 SUB INP/OBS CARE 3/50MIN Diagnoses Pancreatitis K85.90 Peripancreatic fluid collection K86.89 Complex renal cyst N28.1
[2025-04-30] MEDS: ACETAMINOPHEN 500 MG TAB PO PRN (14:20)
--- NOTE | 2025-04-30 15:41 | Hospitalist Progress Note ---
Date of Service April 30, 2025 Assessment & Plan (1) Acute on chronic pancreatitis: (2) Pancreatic pseudocyst: (3) Hypokalemia: (4) Complex renal cyst: Plan The patient is a 65-year-old male with past medical history including acute on chronic pancreatitis with most recent admission 04/17-04/22/2025, anxiety, GERD, esophagitis, folate deficiency, esophageal dysphagia, vertebral artery stenosis, and pulmonary nodule, readmitted with acute on chronic pancreatitis and developing pseudocyst with splenic vein thrombosis. #Acute on chronic pancreatitis/splenic vein thrombosis/developing pseudocyst- etiology due to chronic damage to pancreatic duct. No longer drinks EtOH, TG and calcium normal, no divisum on previous MRCP, no gallstones. Lipase 244 on admission, now down to normal. CT abdomen/pelvis notes acute on chronic pancreatitis, and possible pseudocyst versus peripancreatic fluid collection. Leukocytosis of 21 now improved to 13, remains afebrile. Seen by GI and no indication for antibiotics-stopped. Has appropriate drop in H/H due to hemo dilution. No anticoagulation recommended for splenic vein thrombosis at this time as this can increase risk for GIB. He is at risk for portal HTN with splenic vein thrombosis however. Still with ongoing pain but improving, tolerating low fat diet now -dc IVFs -increase morphine dose to 3mg for moderate pain and 6mg for severe pain -add tylenol prn -continue low fat diet ad stressed this to pt once he returns home -needs outpt EUS and possible ERCP in 3- 4 weeks after dc with [facility] advanced endoscopist-referral made -follow CBC, CMP, Mag [place]-no need to continue to follow lipase #Constipation-ongoing, worsened by opioids -continue senna/docusate -add Miralax 17 grams bid -add bisacodyl CA daily prn #Hypokalemia/hypomagnesemia-Potassium 2.7 on admission, Magnesium 1.7 on admission. replaced and resolved -follow BMP, Mag in AM #History of alcohol abuse- Change folic acid 1 mg and thiamine 100mmg from IV to po Patient reports no recent alcohol intake #Tobacco abuse/COPD NicoDerm patch 21 mg ordered DuoNebs every 2 hours as needed #Complex renal cyst Noted on CT A/P here-has been present since 2019 but slightly increased in size refer to Urology as outpt #Hypothyroidism-TSH recently 4.6 -continue home LT4 dose #Seizure disorder-no acute issues -continue home lamictal #GERD-change IV to po PPI #B12 deficiency-holding home B12 DVT prophylaxis-start Lovenox Disposition-continued stay medical/surgical unit Admission and Anticipated Discharge Date Admission Date: April 29, 2025 Subjective Pt still has c/o significant epigastric pain and says the morphine does not last very long. He tolerated low fat diet for dinner. Still no BM Physical Exam Constitutional: WD/WN, vitals as above Respiratory: normal respiratory effort, lungs clear to auscultation Cardiovascular: RRR, no murmur, no edema Gastrointestinal (Abdomen): Inspection/Auscultation: abdomen normal to inspection and normal bowel sounds; abdomen not distended Percussion/Palpation: + abdomen tender (Epigastric region without guarding or rebound) and abdomen soft; no guarding Psychiatric: A+Ox3, euthymic affect Results & Data Results & Data Vital Signs (Past 12 Hours) Vital Signs Temp Pulse Pulse Resp BP BP Pulse Ox 04/30/25 14:40 36.5 C 102 H 16 155/71 H 97 04/30/25 11:42 37.3 C 101 H 18 137/81 96 04/30/25 08:00 04/30/25 07:36 36.9 C 102 H 18 118/71 95 O2 Del Method 04/30/25 14:40 Room Air 04/30/25 11:42 Room Air 04/30/25 08:00 Room Air 04/30/25 07:36 Room Air Laboratory Results CBC, BMP, LFTs, magnesium, lipase reviewed PG Care Time/CCT Total # of Minutes Spent Total Time Spent with Patient: Total time spent is greater than 50% in coordination of care (as documented) at patient's floor/unit and/or counseling patient: Coding Level of Care Code 82479 SUB INP/OBS CARE 2/35MIN Diagnoses Acute on chronic pancreatitis K85.90; K86.1 Pancreatic pseudocyst K86.3 Hypokalemia E87.6 Complex renal cyst N28.1
[2025-04-30] MEDS ORDERED: MoRPHine SULFATE 2 MG/ML CARP IV PRN (19:01)
[2025-04-30] MEDS: POLYETHYLENE (MIRALAX) 17 GM PACK PO SCH (19:45)
[2025-04-30] MEDS: ENOXAPARIN INJ 40 MG/0.4 ML SYR SQ SCH (19:54)
[2025-05-01] MEDS: MoRPHine SULFATE 4 MG/ML 1 ML CARP\\VIAL IV PRN (05:42)
[2025-05-01 07:25] LABS: Hematocrit (blood only) 29.3 % (42.0-52.0); Hemoglobin 9.8 g/dl (14.0-18.0); Immature Granulocytes # (auto) 0.08 K/uL (0.01-0.20); Immature Granulocytes % (auto) 0.6 %; Mean Corpuscular Hemoglobin 31.2 pg (25.0-34.0); Mean Corpuscular Volume 93.3 fL (80.0-100.0); Platelet Count 353 K/uL (130-400); RDW Standard Deviation 50.4 fL (36.4-46.3); Red Blood Count 3.14 M/uL (4.70-6.10); White Blood Count 12.45 K/ul (4.8-10.8)
[2025-05-01 07:44] LABS: Alanine Aminotransferase 6.0 U/L (7-52); Albumin Globulin Ratio 1.1 (0.9-2); Albumin Level 3.0 gm/dl (3.4-5.0); Alkaline Phosphatase 113.0 U/L (34-104); Anion Gap 5.0 (3-11); Bilirubin,Total 0.7 mg/dl (0.2-1.0); Blood Urea Nitrogen 4.0 mg/dl (6-23); Calcium 8.5 mg/dl (8.6-10.3); Carbon Dioxide 27.0 mmol/L (21-32); Chloride 103.0 mmol/L (98-107); Creatinine Clr Calc Pharmacy 143.3 ml/min; Globulin 2.8 gm/dl (2.5-4.0); Glucose 94.0 mg/dl (70-99(Fasting)); Magnesium 1.8 mg/dl (1.7-2.4); Potassium 4.1 mmol/L (3.5-5.1); Sodium 135.0 mmol/L (136-145); Total Protein 5.8 gm/dl (6.0-8.3)
[2025-05-01] MEDS: THIAMINE HCL 100 MG TAB PO SCH (08:18)
[2025-05-01] MEDS: FOLIC ACID 1 MG TAB PO SCH (08:19)
--- NOTE | 2025-05-01 09:08 | Gastroenterology Progress Note ---
Date of Service May 01, 2025 Assessment & Plan (1) Pancreatitis: (2) Peripancreatic fluid collection: Plan 65-year-old male with past medical history past alcohol use, pancreatic stones s/p ERCP 2021, acute on chronic pancreatitis with most recent admission 04/17-04/22/2025, anxiety, GERD, esophagitis, folate deficiency, esophageal dysphagia, vertebral artery stenosis, and pulmonary nodule. Seen today on GI rounds for 2 day follow up of acute on chronic pancreatitis with acute peripancreatic fluid collection. He reports he's improving today with better tolerance of solid foods today without worsening of abdominal pain or nausea. (1) Acute on Chronic Pancreatitis with 5.5cm acute peripancreatic fluid collection and acute splenic vein occlusion (new since 04/18/25). Lipase improved from 244 to 66. Leukocytosis improving from 21k/ul to 13k/ul to 12k/ul today. Hgb stable at 9.8g/dl today, unchanged from yesterday.. Renal function normal. - Case reviewed with Dr. Quinonez [facility]. - Recommend 2 week follow imaging with Pancreas CT in 2 weeks. I have placed orders and created a task with our office to arrange for this. - Recommend out patient f/u with Dr. Maame [facility] for possible EUS/ERCP in follow up for possible clearance of pancreatic/CBD stones and/or drainage of cyst if clinically warranted (ie, persistent mass effect/pain/early satiety). There is no signs of significant obstruction, cholangitis or LFT elevation currently. I have created a task through our office to arrange this and patient is aware of recommendations. - We also recommended other lifestyle recommendations to prevent recurrence of pancreatitis including low fat diet, cessation of tobacco products and ongoing avoidance of alcohol. Understanding voiced. - Thank you for allowing us to participate in the care of this patient. Please call with any acute changes, questions or concerns. Please see addendum below with additional recommendation from my supervising physician. Admission and Anticipated Discharge Date Admission Date: April 29, 2025 Supervising Physician Co-Signing Physician Notes Patient overall feeling much better. His biggest issue right now is constipation. He is eating solid foods without difficulty. His pain is improving. He has not been requiring much in the way of IV pain medications. I suspect he will be able to go home tomorrow. I will give him milk of magnesia in case he does not have a bowel movement this evening. He will get a follow-up CT scan of the pancreas in 2 weeks. He will follow-up for an outpatient EUS plus or minus ERCP. Subjective 65-year-old male with past medical history including acute on chronic pancreatitis with most recent admission 04/17-04/22/2025, anxiety, GERD, esophagitis, folate deficiency, esophageal dysphagia, vertebral artery stenosis, and pulmonary nodule. Seen today on GI rounds for re-admission for ongoing abdominal pain with new findings of fluid collection on imaging. [facility] 05/01/25 Patient seen today for day 2 follow up of acute pancreatitis with acute peripancreatic fluid collection on Pancreas CT. I reviewed his labs. CBC 05/01/25 - Hgb 9.8, Hct 29.3%, Plt 353, WBC 12.45. MCV 93 CMP 05/01/25 - Na 135, K 4.1, CL 103, CO2 27, BUN 4, Cr 0.49, Glucose 94 T-Bilil 0.7, AST 14, ALT 6, Alk Phos 113, Albumin 3.0. Clinically he reports that he's continuing to feel better. His abdominal pain is lessening in severity. He was able to eat a breakfast without issues. He did note that he had some constipation this morning for which he took Miralax for. He denies any fevers, chills, dysphagia, N/V/D, melena or hematochezia. [facility] 04/30/25 Patient seen today for 1 day follow up of acute pancreatitis with acute peripancreatic fluid collection on Pancreas CT. No obvious signs of necrosis or infection noted. He was incidentally found to have an acute splenic vein thrombosis. No clear benefit to adding anticoagulation in this setting. He was also incidentally found to have a complex left renal cyst. No previous urology w/u noted. Recommended f/u with urology for further recommendations. Clinically he seems to be improving. He tolerated clear liquids yesterday without worsening of pain, nausea or vomiting. We also held antibiotics per AGA recommendations for acute peripancreatic fluid collections. Today his CBC revealed improvement in leukocytosis with WBC reducing from 21k/ul to 13k/ul. Lipase dropped from 244 to 66. Renal function stable. Potassium improved from 2.7 to 3.9. He continues to have epigastric pain but this is improving in severity in comparison to yesterday. He denies any fevers, chills, SOB, CP, Nausea, vomiting, melena or hematochezia. Pertinent diagnostics reviewed. CT Pancreas 04/29/25 ADDENDUM Correction: IMPRESSION 2. 5.5 cm fluid collection adjacent to the pancreatic body and tail is technically compatible with an acute peripancreatic fluid collection based on time interval rather than a pseudocyst which develops after 4 weeks (please see the revised Khushbu classification of acute pancreatitis for reference). 1. Acute on chronic interstitial edematous pancreatitis with numerous parenchymal calcifications redemonstrated. Pancreatic ductal dilation is again noted with equivocal stone or stones within the pancreatic duct proximal to the ampulla. 2. 5.5 cm fluid collection adjacent to the pancreatic body and tail suggestive of a pseudocyst. 3. Acute occlusion of the splenic vein, new from 04/17/2025. 4. Mild interstitial pulmonary edema with bibasilar atelectasis and trace pleural effusions. 5. Small pericardial effusion. 6. Reactive upper abdominal lymphadenopathy. NOTE - Incidental finding of 1.2 cm exophytic hyperdense lesion of the posterior interpolar left kidney suggestive of a complex cyst. CBC - 04/30/25 - Hgb 9.8 (down from 12.1g/dl), Hct 29.1 (34.9%), 13.31k/ul (21.69.k/ul), Plt 316k/ul CMP - 04/30/25 - BUN 4 Cr 0.42, Cl106, CO2 25, Na 136, K 3.9 (up from 2.7). T- Bili 0.7, AST 11, ALT 7, Alk Phos 97, Albumin 2.9. Lipase 04/30/25 - 66. Initial GI HPI 04/29/25 Patient returned to ER with ongoing epigastric pain with radiation to back associated with nausea, vomiting and poor PO intake. He was noted to have significant leukocytosis with WBC of 21.69k/ul with new fluid collection within pancreas measuring 47x 37mm. Gallbladder and liver were unremarkable. Pancreas appears mildly bulky and shows subtle adjacent fat stranding. Multiple calcific foci are noted in the pancreas, predominatly the head and uncinate process. There is mild dilatation of the main pancreatic duct up to 4mm. He was admitted to floor. Reviewed hospitalist notes who started patient of Cefepime and Vancomycin, maintenance fluids with NSS and [id number] at 125ml/hr, Zofran as needed. Clinically he reports he was in his typical health without concern prior to recent hospitalization for pancreatitis. Upon discharge he continued to have worsening abdominal pain and loss of appetite eating very little over the last week. Since return to hospital yesterday he's been started on fluids, electrolyte replacement and antibiotics. Patient reports he's feeling better today compared to yesterday. Has continued nausea and abdominal discomfort. He denies any fevers, SOB, CP, vomiting, melena or hematochezia or edema. Family history - Denies GI cancers, pancreatic issues. Liver issues. Social history - Tobacco use, just under 1 PPD. Former alcohol use. Drank 3 5ths a week, > 5 drinks a day for several years. Quit 14 months ago. No drug use. Surgical history - EGD/Colonoscopy, ERCP, Teeth extraction. Cervical fusion. Pertinent diagnostics CBC - 04/29/25 - Hgb 12.1 g/dl, Hct 34.9, Plt 381, WBC 21.69k/ul Neutro 17.23 k/ul. CBC - 04/22/25 - Hgb 12.9 g/dl Hct 35.7%, Plt 255k/ul, WBC 13.23k/ul Neutro 9.07 k/ul. BMP - 04/29/25 - Glucose 137, BUN 12, Cr 0.56, Cl 98, CO2 31, Na 136, K 2.7. Lipid 2023 - TG 94, T Chol 170, LDL 108, HDL 43. 04/18/25 - TG 92 Lipase 04/29/25 - 244, 04/17/25 - 154, 04/18/25 71, 04/19/25 92, 04/20/25 63, 04/21/25 29, 04/29/[address] abd/pelvis 04/29/25 The visualized lung bases are clear. The liver is normal in size and attenuation. No focal liver lesions are seen. There is no intrahepatic or extrahepatic biliary ductal dilatation. The hepatic vasculature is patent. The gallbladder is present. The spleen and adrenal glands are unremarkable. The pancreas appears mildly bulky and shows subtle adjacent fat stranding. Multiple calcific foci are noted involving the pancreas, predominantly the head and uncinate process. There is mild dilatation of the main pancreatic duct up to 4 mm. An approximately 47 x 37 mm well-defined, thick-walled cystic lesion/collection is noted involving the distal body and tail of the pancreas. The kidneys are normal in size and attenuation. There is no hydronephrosis or perinephric fat stranding. No renal calculi or renal masses are identified. The ureters are normal in caliber, and no ureteral calculi are seen. The bladder is normal in contour. Pelvic viscera are unremarkable. No focal or diffuse bowel wall thickening or evidence of bowel obstruction is identified. No imaging evidence of appendicitis. Abdominal and pelvic vasculature is patent. No adenopathy or fluid collections are seen. No aggressive appearing osseous lesions are identified. Multiple small uncomplicated sigmoid colonic diverticulosis. IMPRESSION: 1. The pancreas appears mildly bulky and shows subtle adjacent fat stranding (new changes). Multiple calcific foci are noted involving the pancreas, predominantly the head and uncinate process (stable), suggestive of acute on chronic pancreatitis. 2. A large, well-defined, thick-walled cystic lesion/collection is noted involving the distal body and tail of the pancreas, suggesting the possibility of pseudocyst/walled off necrosis formation (new finding). 3. Multiple small uncomplicated sigmoid colonic diverticulosis (stable). CXR 04/29/25 IMPRESSION: 1. Emphysematous changes of both lungs (unchanged). 2. No acute cardiopulmonary abnormalities are identified. 3. A well-defined radiolucency involving the right humeral head may be secondary to internal rotation positioning, which may require a dedicated X-ray study if clinically warranted. 4. Otherwise, no time interval changes. ERCP 07/2022 Dr. Isabel 2021 Panreatic Calcification. Pancreatic stone removed. stents placed in pancreatic duct and bile duct. 10/2022 Dr. Isabel 2022 - 3 month f/u ERCP. Two stents removed. pancreatic stones removed. pancreatic stent placed. EGD Dr. Cline Indication: Dysphagia 07/2022 Impression: - Benign-appearing esophageal stenosis. Dilated. - Gastritis. - Normal examined duodenum. - No specimens collected. Recommendation: - Return patient to hospital [facility] for ongoing care. - Advance diet as tolerated. - Continue present medications. - Repeat upper endoscopy PRN for retreatment. - Return to primary care physician as previously scheduled. Colonoscopy Dr. Cline 05/23/21 Indication: ERIC Findings: The perianal and digital rectal examinations were normal. A 4 mm polyp was found in the cecum. The polyp was sessile. The polyp was removed with a cold snare. Resection and retrieval were complete. Non-bleeding internal hemorrhoids were found during retroflexion. The hemorrhoids were small. Impression: - One 4 mm polyp in the cecum, removed with a cold snare. Resected and retrieved. - Non-bleeding internal hemorrhoids. Recommendation: - Resume previous diet. - Continue present medications. - Repeat colonoscopy for surveillance based on pathology results. - Return to primary care physician as previously scheduled. Path: Tubular Adenoma. Recommended 5 year f/u. Review of Systems Review of Systems: See HPI Physical Exam Physical Exam: Constitutional: NAD. Alert. Answering questions appropriately. Respiratory: Breathing is even, non-labored. Lungs garcia are clear to auscultation anteriorly. Cardiovascular: Regular Rate and Rhythm, no murmurs, rubs or gallops appreciated. Gastrointestinal (Abdomen): Normoactive bowel sounds x4, soft, non-distended + mild epigastric tenderness. No rebound tenderness. Musculoskeletal: Lying in bed comfortably. No peripheral edema. Results & Data Results & Data Vital Signs (Past 12 Hours) Vital Signs Temp Pulse Resp BP BP Pulse Ox O2 Del Method 05/01/25 06:56 98.2 F 92 H 18 163/84 H 95 Room Air 04/30/25 22:50 98.1 F 100 H 18 159/99 H 97 Room Air PG Care Time/CCT Total # of Minutes Spent Total Time Spent with Patient: Total time spent is greater than 50% in coordination of care (as documented) at patient's floor/unit and/or counseling patient: Coding Level of Care Code 98077 SUB INP/OBS CARE 3/50MIN Diagnoses Pancreatitis K85.90 Peripancreatic fluid collection K86.89
[2025-05-01] MEDS: MAGNESIUM SULFATE / D5W 1 GM/100 ML BAG IV ONE (09:53)
--- NOTE | 2025-05-01 16:19 | Hospitalist Progress Note ---
Date of Service May 01, 2025 Assessment & Plan (1) Acute on chronic pancreatitis: (2) Pancreatic pseudocyst: (3) Hypokalemia: (4) Complex renal cyst: Plan The patient is a 65-year-old male with past medical history including acute on chronic pancreatitis with most recent admission 04/17-04/22/2025, anxiety, GERD, esophagitis, folate deficiency, esophageal dysphagia, vertebral artery stenosis, and pulmonary nodule, readmitted with acute on chronic pancreatitis and developing pseudocyst with splenic vein thrombosis. #Acute on chronic pancreatitis/splenic vein thrombosis/developing pseudocyst- etiology due to chronic damage to pancreatic duct. No longer drinks EtOH, TG and calcium normal, no divisum on previous MRCP, no gallstones. Lipase 244 on admission, now down to normal. CT abdomen/pelvis notes acute on chronic pancreatitis, and possible pseudocyst versus peripancreatic fluid collection confirmed on CT pancreas. Treated initially with n.p.o. status and IV fluids, pain medication. Leukocytosis of 21 now improved to 12, remains afebrile. Seen by GI and no indication for antibiotics-stopped. Has appropriate drop in H/H due to hemodilution. No anticoagulation recommended for splenic vein thrombosis at this time as this can increase risk for GIB. He is at risk for portal HTN with splenic vein thrombosis however. Still with ongoing pain but overall improved, tolerating low fat diet now. With significant constipation -Continue morphine 3mg IV for moderate pain and 6mg IV for severe pain, and add on oxycodone 10 mg p.o. every 6 hours as needed moderate-severe pain-try to use oral pain meds before IV - Continue tylenol prn -continue low fat diet and stressed this to pt once he returns home -needs outpt EUS and possible ERCP in 3- 4 weeks after dc with [facility] GI advanced endoscopist-referral made -Also needs repeat CT of the pancreas in 2 weeks-GI also is ordering this for him as an outpatient -follow CBC, CMP, in AM-no need to continue to follow lipase #Constipation-ongoing, worsened by opioids, no bowel movement in over a week -continue senna/docusate 17.2 mg at bedtime - Increase frequency of Miralax to 17 grams bid - Continue bisacodyl IN daily prn - Give mineral oil enema IN x 1 #Hypokalemia/hypomagnesemia-Potassium 2.7 on admission, Magnesium 1.7 on admission. replaced and now resolved -follow BMP in AM #History of alcohol abuse-he has not drank any alcohol in approximately 1 year Continue folic acid 1 mg p.o. daily and thiamine 100mg p.o. daily #Tobacco abuse/COPD -NicoDerm patch 21 mg ordered -DuoNebs every 2 hours as needed - Encourage cessation #Complex renal cyst-Noted on CT A/P here on right kidney-has been present since 2019 but slightly increased in size -refer to Urology as outpt-defer to PCP #Hypothyroidism-TSH recently 4.6 -continue home LT4 dose #Seizure disorder-no acute issues -continue home lamictal #GERD-continue po PPI #B12 deficiency-holding home B12 but can resume on discharge DVT prophylaxis- Lovenox Disposition-continued stay medical/surgical unit, but patient feeling well enough to leave the hospital on the morning of 05/02-discharge instructions and medications sent to the pharmacy on 05/01 in preparation for this Admission and Anticipated Discharge Date Admission Date: April 29, 2025 Subjective Patient reports overall feeling better with less abdominal pain. Now having lower abdominal discomfort due to constipation as he has not moved his bowels in a week. He walked the halls a few times today. No nausea and is tolerating a low-fat diet. Physical Exam Constitutional: WD/WN, vitals as above Respiratory: normal respiratory effort, lungs clear to auscultation Cardiovascular: RRR, no murmur, no edema Gastrointestinal (Abdomen): Inspection/Auscultation: abdomen normal to inspection and normal bowel sounds; abdomen not distended Percussion/Palpation: + abdomen tender (Epigastric region without guarding or rebound) and abdomen soft; no guarding Psychiatric: A+Ox3, euthymic affect Results & Data Results & Data Vital Signs (Past 12 Hours) Vital Signs Temp Pulse Resp BP Pulse Ox O2 Del Method 05/01/25 14:27 36.8 C 89 16 150/74 H 95 Room Air 05/01/25 08:20 Room Air 05/01/25 06:56 36.8 C 92 H 18 163/84 H 95 Room Air Laboratory Results CBC, CMP, magnesium reviewed PG Care Time/CCT Total # of Minutes Spent Total Time Spent with Patient: Total time spent is greater than 50% in coordination of care (as documented) at patient's floor/unit and/or counseling patient: Coding Level of Care Code 28543 SUB INP/OBS CARE 235MIN Diagnoses Acute on chronic pancreatitis K85.90; K86.1 Pancreatic pseudocyst K86.3 Hypokalemia E87.6 Complex renal cyst N28.1
[2025-05-01] MEDS: MINERAL OIL ENEMA 133 ML BTL PR ONE (16:56)
[2025-05-01] MEDS: POLYETHYLENE (MIRALAX) 17 GM PACK PO SCH (20:25)
[2025-05-02 07:00] VITALS: BP 142/82; PULSE 85; RESP 18; TEMP 98.4; O2SAT 95
--- NOTE | 2025-05-02 07:03 | Electrocardiogram Report ---
Test Reason : Blood Pressure : */* mmHG Vent. Rate : 99 BPM Atrial Rate : 99 BPM P-R Int : 128 ms QRS Dur : 86 ms QT Int : 362 ms P-R-T Axes : 79 69 60 degrees QTcB Int : 464 ms Normal sinus rhythm Nonspecific ST abnormality Abnormal ECG When compared with ECG of 17-Apr-2025 15:33, No significant change was found Confirmed by Hugo Busch ([id number]) on 05/02/2025 7:02:39 AM Referred By: REFERRED SELF Confirmed By: Hugo Busch
[2025-05-02 08:06] LABS: Hematocrit (blood only) 30.9 % (42.0-52.0); Hemoglobin 10.4 g/dl (14.0-18.0); Immature Granulocytes # (auto) 0.06 K/uL (0.01-0.20); Immature Granulocytes % (auto) 0.6 %; Mean Corpuscular Hemoglobin 31.3 pg (25.0-34.0); Mean Corpuscular Volume 93.1 fL (80.0-100.0); Platelet Count 397 K/uL (130-400); RDW Standard Deviation 49.2 fL (36.4-46.3); Red Blood Count 3.32 M/uL (4.70-6.10); White Blood Count 10.85 K/ul (4.8-10.8)
[2025-05-02 08:23] LABS: Alanine Aminotransferase 7.0 U/L (7-52); Albumin Globulin Ratio 1.0 (0.9-2); Albumin Level 3.0 gm/dl (3.4-5.0); Alkaline Phosphatase 113.0 U/L (34-104); Anion Gap 4.0 (3-11); Bilirubin,Total 0.6 mg/dl (0.2-1.0); Blood Urea Nitrogen 4.0 mg/dl (6-23); Calcium 8.6 mg/dl (8.6-10.3); Carbon Dioxide 29.0 mmol/L (21-32); Chloride 103.0 mmol/L (98-107); Creatinine Clr Calc Pharmacy 125.0 ml/min; Globulin 3.0 gm/dl (2.5-4.0); Glucose 107.0 mg/dl (70-99(Fasting)); Potassium 3.7 mmol/L (3.5-5.1); Sodium 136.0 mmol/L (136-145); Total Protein 6.0 gm/dl (6.0-8.3)
--- NOTE | 2025-05-02 10:15 | Discharge Summary ---
Discharge Summary Date of Service May 02, 2025 Principal Dx & Hospital Course #1 = Principal Diagnosis (1) Acute on chronic pancreatitis: See Plan below for details on bullet #1. (2) Pancreatic pseudocyst: See Plan below for details on bullet #2. (3) Hypokalemia: See Plan below for details on bullet #3, (4) Complex renal cyst: See Plan below for details on bullet #4. Plan 65 years old male with past medical history of DNR/DNI @ home, severe left vertebral artery stenosis @ C4 level due to osteophytes and dominant patent right vertebral artery (as noted on 07/22/2020 CTA neck with IV contrast), chronic normocytic, normochromic anemia with progressive decline in baseline Hb range, 13.1 g/dL (02/19/2020, 6:56pm) to 11.5 g/dL (04/19/2025, 6:41am), ongoing tobacco abuse with subsequent diagnosis of COPD, not on home O2 or home steroids, but instead, unchanged sub-centimeter sub-pleural nodular focus of lingula favoring scar (as noted on CT lung), former ETOH abuse with no subsequent diagnosis of ETOH hepatitis/cirrhosis, but instead, GERD/esophagitis, esophageal dysphagia, anxiety disorder, acute on chronic pancreatitis with most recent admission to [facility] (04/17/2025 to 04/22/2025), who was readmitted to the inpatient hospitalist service @ [facility] on 04/29/2025 with the following diagnoses: 1. Recurrent, acute on chronic pancreatitis with new 5.5 cm fluid collection adjacent to pancreatic body/tail AND new splenic vein thrombosis, compared to 04/17/2025, 3:55pm CT abd/pelvis with IV contrast (as reported on 04/29/2025, 10:24am CT pancreas). 2. Acute hypokalemia with admission K 2.7 mmol/L (04/18/1014, 1:28am). 3. Ongoing tobacco abuse with subsequent diagnosis of COPD, not on home O2 or home steroids, but instead, unchanged sub-centimeter sub-pleural nodular focus of lingula favoring scar (as noted on CT lung). The following medical issues were addressed while the patient remained in [facility] from admission date 04/29/2025 to discharge date 05/02/2025: 1. Recurrent, acute on chronic pancreatitis with new 5.5 cm fluid collection adjacent to pancreatic body/tail AND new splenic vein thrombosis, compared to 04/17/2025, 3:55pm CT abd/pelvis with IV contrast. Etiology of these conditions is due to chronic damage to pancreatic duct, even though patient remains completely abstinent from ETOH for the past 12 months. Of note, laboratory testing showed that both TG and calcium were normal, no divisum on previous MRCP, no gallstones. Lipase 244 U/L nominally elevated on admission (04/29/2025, 1:28am), trending to normal lipase 66 U/L (04/30/2025, 5:20am). Initial CT abd/pelvis with IV contrast only (04/29/2025, 2:16am) demonstrated [id number] pancreatitis; subsequently, new 5.5 cm fluid collection adjacent to pancreatic body/tail AND new splenic vein thrombosis, compared to 04/17/2025, 3:55pm CT abd/pelvis with IV contrast (as reported on 04/29/2025, 10:24am CT pancreas). Patient was initially treated with n.p.o. status and IV fluids, pain medication. Patient remained afebrile and WBC 21.69, N79 L9 M9 E1 (04/29/2025) trended down to: WBC 13.31, N66 L19 M11 E3 B1 (04/30/2025, 5:20am). WBC 12.45, N72 L14 M11 E2 (05/01/2025, 6:47am). WBC 10.85, N70 L14 M13 E2 (05/02/2025, 7:43am). GI Service of Dr. Michael Madrigal (04/29/2025, 9:01am) subsequently evaluated the patient and found no indication for antibiotics, which were subsequently stopped after patient had received cefepime 2g IV x 1 dose (04/29/2025, 3:40am) empirically in [facility] ER, and vancomycin 1.25g IV x 1 dose (04/29/2025, 3:46pm) in [facility] Med-Surg bed #N379-2. Patient demonstrated an appropriate drop in H/H (cf., admission Hb 12.1 g/dL (04/29/2025, 1:28am) to repeat Hb 9.8 g/dL (04/30/2025, 5:20am) to 9.8 g/dL (05/01/2025, 6:47am), before increasing to 10.4 g/dL (05/02/2025, 7:43am) prior to hospital discharge back to patient's home on 05/02/2025, and which has been attributed to hemodilution from IV fluid rehydration therapy (cf., 1 liter of 0.9% NS @ 999 mL/hr (04/29/2025, 1:43am), 2 liters of 0.9% NS @ 999 mL/hr (04/29/2025, 3:40am, 4:37am), and KCl 20meq in 1000mL 0.9% NS IV @ 125 mL/hr x 5 doses (04/29/2025, 4:34am, 12:29pm, 9:00pm; 04/30/2025, 5:27am, 1:19pm); cf., drop in H/H was NOT due to acute blood loss anemia. Patient did not receive active anticoagulation for splenic vein thrombosis while in [facility] as active anticoagulation can increase risk for acute blood loss anemia via acute GI bleeding. However, at the same time that patient does not receive active anticoagulation, patient remains at increased risk for subsequent development of portal HTN given his untreated, un- anticoagulated splenic vein thrombosis. Patient reports that he has "6 out of 10 belly pains" on discharge date 05/02/2025; in comparison, patient recalled up to "10 out of 10 belly pains when I came in to the hospital on 04/29/2025." Patient reports that his "6 out of 10 belly pains" are "probably due to the fact that I have not had a real bowel movement for 7 days and normally I go to have bowel once a day, every day, at my home. Maybe the morphine shots I'm getting are backing me up." Patient subsequently received tylenol 1000mg PO q8 prn mild pain, morphine 3mg IV q3 prn for moderate pain, morphine 6mg IV q3 prn for severe pain, and oxycodone 10mg PO q6 prn moderate-severe pain while in [facility]. Patient subsequently was discharged back to his home on 05/02/2025 with electronic prescription for oxycodone 10mg PO q6 prn moderate-severe pain, #20 tablets, each tablet 5mg, no refills, transmitted to his [id number] in [place], [place], on 05/01/2025. Patient was also advised to continue to adhere to a low fat diet on hospital discharge back to his home on 05/02/2025. Patient was also advised to follow up with Nathanael robledo in 2 weeks for outpatient repeat CT pancreas and in 3-4 weeks for outpatient EUS and possible ERCP. Patient reports that he will comply with all of the recommendations above. 2. Acute hypokalemia with admission K 2.7 mmol/L (04/18/1014, 1:28am). cf., K 3.9 mmol/L (04/30/2025, 5:20am). cf., K 4.1 mmol/L (05/01/2025, 6:47am). cf., K 3.7 mmol/L (05/02/2025, 7:43am)(discharge). RESOLVED s/p supplementation with KCl 10meq IV q1h x 2 doses (04/29/2025, 3:00am, 3:57am), KCl 10meq IV q1h x 4 doses (04/29/2025, 8:43am, 9:43am, 10:43am, 11:43am), and KCl 20meq in 1000mL 0.9% NS IV @ 125 mL/hr x 5 doses (04/29/2025, 4:34am, 12:29pm, 9:00pm; 04/30/2025, 5:27am, 1:19pm). 3. Ongoing tobacco abuse with subsequent diagnosis of COPD, not on home O2 or home steroids, but instead, unchanged sub-centimeter sub-pleural nodular focus of lingula favoring scar (as noted on CT lung). Patient received smoking cessation counselling 16 minutes while in [facility]. Patient accepted offer of nicotine replacement utilizing nicotine patch 21mg TD daily while in [facility]. Patient will not continue with nicotine patch 21mg TD daily on hospital discharge back to his home on 05/02/2025, as patient states, "I can quit smoking on my own." 4. Post-hospital admission development and diagnosis of presumed opioid-induced constipation. As stated in bullet #1 above, patient subsequently received tylenol 1000mg PO q8 prn mild pain, morphine 3mg IV q3 prn for moderate pain, morphine 6mg IV q3 prn for severe pain, and oxycodone 10mg PO q6 prn moderate-severe pain while in [facility]. Patient reports that he has "6 out of 10 belly pains" on discharge date 05/02/2025; in comparison, patient recalled up to "10 out of 10 belly pains when I came in to the hospital on 04/29/2025." Patient reports that his "6 out of 10 belly pains" are "probably due to the fact that I have not had a real bowel movement for 7 days and normally I go to have bowel once a day, every day, at my home. Maybe the morphine shots I'm getting are backing me up." Patient received miralax 17g PO daily x 2 doses (04/30/2025, 7:45pm; 05/01/2025, 8:19am), then miralax 17g PO bid x 2 doses (05/01/2025, 8:25pm; 05/02/2025, 9:40am), and mineral oil enema [place] x 1 dose (05/01/2025, 4:56pm); patient subsequently reported passage of small volume of loose, watery stool x 1 episode on 05/01/2025 pm. Patient subsequently received methylnatrexone 12mg SQ x 1 dose (05/02/2025, 10:11am) and magnesium citrate 296mL PO x 1 dose (05/02/2025, 10:11am) prior to discharge back to patient's home on 05/02/2025. Patient reported that he did not wish to wait in [facility] for bowel to pass as patient reported that "I want to see the football game today (05/02/2025) between [facility] and [place] and the football game tomorrow (05/03/2025) in [facility] between the [employer] and the [place] [employer]; I don't want to miss either game and I can use the toilet in my own home as well as the toilet in [facility]. Thank you very much, all of you, for your help. I am grateful. I am going home now." DVT prophylaxis- Lovenox 40mg SQ daily. Disposition- D/C'd back to patient's home on 05/02/2025, 11:10am. Admission HPI Per Admitting Provider The patient is a 65-year-old male with past medical history including acute on chronic pancreatitis with most recent admission 04/17-04/22/2025, anxiety, GERD, esophagitis, folate deficiency, esophageal dysphagia, vertebral artery stenosis, and pulmonary nodule. The patient presents to the emergency department with complaint of a return of symptoms that prompted this admission from 04/17- 04/22/2025. He complains of epigastric discomfort, generalized abdominal discomfort, and pain bilaterally across his lumbar spine. He had decreased appetite, but he has also had decreased liquid intake as well. Workup in the emergency department included elevated lipase to 44, potassium 2.7, Pro-Isma 6.43. Chest x-ray was negative. CT scan of abdomen pelvis, the pancreas appeared mildly bulky and shows subtle adjacent fat stranding. No changes. Multiple calcific foci are noted involving the pancreas predominantly of the head and uncinate process suggestive of acute on chronic pancreatitis. There is a large well-defined thick walled cystic lesion/collection noted involving the distal body and tail of pancreas, suggesting the possibility of pseudocyst/walled off necrosis formation. WBC was elevated at 21.69. Patient was placed on cefepime 2 g IV, and was then referred for evaluation for admission to the hospitalist service. Discharge Exam Constitutional General: Comfortable, cooperative, coherent. Wide awake and alert. Not confused, lethargic, or obtunded. Patient speaks in complete, fluent, and articulate sentences without pause, interruption, cough, or wheeze. HEENT: Normocephalic, atraumatic. Extra-ocular muscles intact. Pupils equally round and reactive to light. No nystagmus, gaze paresis, anisocoria, miosis, mydriasis, hyphema, chemosis, scleral injection, conjunctivitis, or pterygium. No otorrhea or rhinorrhea. No pharyngeal discharge or exudate. Neck: Supple, no stridor or bruit. Jugular venous pressure is estimated to be 3 cm above the sternal angle of Vern, which is, by definition, 5 cm above the level of the right atrium. Hence, jugular venous pressure of 8 cm is not elevated on discharge date 05/02/2025. Lymphatics: No anterior/posterior cervical, infraclavicular, supraclavicular, axillary, epitrochlear, or inguinal adenopathy. Chest: Symmetric rise and fall with respirations. Non-tender to palpation. Lungs: Clear to auscultation and percussion. No audible expiratory wheeze, egophony, pectoriloquy, increase in tactile fremitus, or flatness/dullness to percussion at the bases. Heart: Regular rate and rhythm. S1 and S2 noted. No S3 or S4 summation gallop. No tripartite friction rub. Grade II/ early systolic murmur at left lower sternal border without radiation to the carotids, axilla, or back, and which remains invariant in regards to the respiratory cycle. Abdomen: Soft, non-tender, non-distended. No rebound, guarding, Ray's sign, or organomegaly. Bowel sounds auscultated in all 4 quadrants. Extremities: No clubbing, cyanosis, or edema. 2+ pedal pulses bilaterally. Skin: No decubitus ulcer, exanthem, or enanthem. Urology: No irwin catheter. No purewick. No urethral discharge. Neurology: Alert and oriented in regards to person, place, time, and situation. DTR+. 5/5 motor strength in all 4 extremities, both proximally and distally. Psychiatry: No flat affect. No monotone voice. Smiles appropriately. Discharge Plan Discharge Items Patient Disposition: Home - Self-Care Reason For Visit: ACUTE ON CHRONIC PANCREATITIS, POSSIBLE PSEUDOCYST Discharge Diagnosis: Acute on chronic pancreatitis Possible developing pseudocyst Splenic vein thrombosis Hypokalemia Constipation Condition on Discharge: Fair Activity: Resume your previous activity Bathing: No limitations Exercise/Sports: Gradually increase as tolerated Driving/Machine Use: No driving when taking oxycodone Non-emergency contact: Primary Care Provider and Fur Stretcher Call non-emergency contact if: you have any medication questions, your symptoms worsen and your pain is not controlled Follow-up/Referrals: Jeff Grimaldo CRNP [Primary Care Provider] - (Follow-up within 1-2 weeks) Diet: Low Fat Addtl Attending Provider Instructions: You were admitted with acute pancreatitis which is inflammation of the pancreas. This caused you to develop a collection of inflammatory fluid around the pancreas which may developed into what is called a "pseudocyst" which may require drainage in the future. You will be set up to have a repeat CT scan of the pancreas in 2 weeks and follow-up with the enterprise application analyst at [facility] after that in case you need drainage of the cyst. You should be contacted with these appointment dates and times for the CT scan and the appointment with GI. It is very important that you continue to not drink alcohol, refrain from smoking, and eat a strictly low-fat diet to keep this from getting worse in the future. You can take acetaminophen or oxycodone as needed for mild to severe pain. For your significant constipation, please continue on [id number] laxatives and stool softeners as needed to keep your bowels moving regularly. Pending Studies at Discharge: No Stand-Alone Forms: My [facility], Pain - Opioid Pain Management, Smoking Cessation Medications and DC Order Prescriptions: New acetaminophen [Tylenol Extra Strength] 500 mg Tablet 1,000 mg PO Q8H PRN (Reason: pain) Qty: 30 0RF Rx Instructions: [id number]-[id number] oxycodone 5 mg Tablet 10 mg PO Q6H PRN (Reason: Moderate-severe pain) Qty: 20 0RF sennosides [Senna Lax] 8.6 mg Tablet 17.2 mg PO HS Qty: 60 0RF polyethylene glycol 3350 [Miralax] 17 gram Powder In Packet 17 g PO BID Qty: 60 0RF Relistor 150 mg tablet 450 mg PO QAM Qty: 5 0RF Continued Combivent Respimat 20-100 mcg/actuation mist 1 puff inhalation QID Qty: 4 5RF folic acid 1 mg tablet 1 mg PO QAM Qty: 90 2RF thiamine HCl (vitamin B1) 100 mg tablet 100 mg PO QAM Qty: 30 4RF levothyroxine [Synthroid] 25 mcg tablet 25 mcg PO DAILYBB Qty: 90 1RF cholecalciferol (vitamin D3) 25 mcg (1,000 unit) capsule 25 mcg PO DAILY Qty: 30 0RF Patient Comments: 04/17- otc unable to verify duloxetine 60 mg capsule,delayed release(DR/EC) 60 mg PO DAILY Qty: 90 2RF trazodone 50 mg tablet 50 mg PO DAILY Qty: 30 2RF lamotrigine 200 mg tablet 200 mg PO BID Qty: 60 5RF cyanocobalamin (vitamin B-12) [Vitamin B-12] 1,000 mcg tablet 1,000 mcg PO QPM pantoprazole 40 mg tablet,delayed release (DR/EC) 40 mg PO QAM Discontinued tramadol 50 mg tablet 50 mg PO Q8H PRN (Reason: pain) Qty: 12 0RF Discharge Orders: Discharge Order (Routine); Ordered 05/02/25 Ordered By: Jorge Love Admission Data Admit Date/Time: 04/29/25 05:04 Attending Provider: Jorge Love Admit Provider: Freddy Thomason Primary Care Provider: Jeff Grimaldo Other Providers: Freddy Thomason; Nathalie Quinonez Hospital Stay Data Consultations 04/29/25 03:34 ED Decision to Admit Stat 04/29/25 06:07 Consult Gastroenterology Routine Diagnostic Imagining Performed 04/29/25 02:16 CT Abd and Pelvis [CT abd pelvis IV con only] Stat 04/29/25 10:24 CT pancreas 3-phase wo/w con Stat Pending Results Patient Have Any Pending Studies at Discharge: No Discharge Instructions Given to Patient (Per Discharging Provider) You were admitted with acute pancreatitis which is inflammation of the pancreas. This caused you to develop a collection of inflammatory fluid around the pancreas which may developed into what is called a "pseudocyst" which may require drainage in the future. You will be set up to have a repeat CT scan of the pancreas in 2 weeks and follow-up with the enterprise application analyst at [facility] after that in case you need drainage of the cyst. You should be contacted with these appointment dates and times for the CT scan and the appointment with GI. It is very important that you continue to not drink alcohol, refrain from smoking, and eat a strictly low-fat diet to keep this from getting worse in the future. You can take acetaminophen or oxycodone as needed for mild to severe pain. For your significant constipation, please continue on [id number] laxatives and stool softeners as needed to keep your bowels moving regularly. Total Time Total Time Spent Total Time Spent (In Minutes): 35 minutes. Of this time period, 19 minutes were spent in coordinating patient's discharge. Coding Level of Care Code 36292 INP/OBS DISCH >30 MIN Diagnoses Acute on chronic pancreatitis K85.90; K86.1 Pancreatic pseudocyst K86.3 Hypokalemia E87.6 Complex renal cyst N28.1
[2025-05-02] MEDS: MAGNESIUM CITRATE 296 ML/BTL PO STA (11:31)
[2025-05-02] MEDS: METHYLNALTREXONE BROMIDE 12 MG/0.6 ML VIAL SQ ONE (11:31)
== END 2025-05-02 11:50 | disposition home or self-care (01) | DRG 439 ==
LOC: SUATTDRO → ED 01:20 → INTOOBSV 05:04 → SUATTDRO 05:04 → 2S 05:04 → 3N 04-30 14:39

== ENCOUNTER 2025-07-28 19:42 | Observation (INO) ==
[2025-07-28] MEDS: LORazepam 1 MG/1 ML SYR ED Inj Use IV STA (19:57)
--- NOTE | 2025-07-28 20:02 | Emergency Department Note ---
Impression & Plan Seizure, Stroke-like symptoms, Internal carotid artery stenosis ED Provider Note NAME: RIMA COLLAZO AGE: 65 SEX: M : 1960 ARRIVES VIA: Ambulance INFORMANT: Patient, EMS, the patient's family ED PROVIDER(S): Eduardo Burch DO CHIEF COMPLAINT: Seizure HPI: The patient is a 65-year-old male who presented to the emergency department for an evaluation of seizure. The patient had an episode of seizure that began at 6 PM. His significant other called 911. He had witnessed generalized tonic- clonic activity but since that time has not been able to answer questions or come back to his normal baseline. The patient has been compliant with his outpatient medications including his seizure medications according to the family. The patient received Versed IM prior to arrival. The patient continues to have altered mental status and cannot answer questions. There is no reported trauma. There is no reported fever or headache. ROS: See above HPI for pertinent positives & negatives. A total of 10 systems reviewed and were otherwise negative. PAST MEDICAL HISTORY: See Below PAST SURGICAL HISTORY: See Below FAMILY HISTORY: See Below SOCIAL HISTORY: See Below HOME MEDICATIONS: See Below ALLERGIES: See Below VITALS: See Below PHYSICAL EXAMINATION: GENERAL: The patient is awake to verbal commands. He does not follow commands or answer questions. EYES: The conjunctivae are clear. The pupils are round and reactive. There is a left gaze preference with right sided neglect. EARS, NOSE, MOUTH AND THROAT: The nose is without any evidence of any deformity. NECK: The neck is nontender and supple. RESPIRATORY: Normal respiratory effort is noted there is no evidence of wheezing rhonchi or rales CARDIOVASCULAR: Regular rate and rhythm noted there no murmurs rubs or gallops normal S1 normal S2. GASTROINTESTINAL: The abdomen is soft. Abdomen is nontender. MUSCULOSKELETAL/EXTREMITIES: There is no evidence of gross deformity full range of motion is noted in the hips and shoulders. SKIN: There is no obvious evidence of any rash. There are no petechiae, pallor or cyanosis noted. NEUROLOGIC: The patient is awake and follows commands very intermittently. He is not speaking at this time. The patient has a left gaze preference. The upper and lower extremity on the right side does appear to be tonic. The left upper and left lower extremities move well and appear to have a normal range of motion. MEDICAL DECISION MAKING: The patient is a 65-year-old male who presented to the emergency department by ambulance. History was obtained from the prehospital personnel. The patient does have a history of seizure disorder in the past. His significant other did come to the emergency department to be with him and she also provides some of the history. The patient had an episode of seizure prior to arrival. I did receive a prehospital notification about the patient. The patient arrived at the emergency department. He had already received Versed prior to arrival. He does take seizure medications. According to his significant other he was compliant with his outpatient medication regimen. The patient had a left gaze preference. He appeared to be somewhat rigid in his right upper and lower extremities. He had no further tonic-clonic activity. He was loaded with Keppra in the emergency department. He was also given Ativan. On reevaluation he did not have any further muscle rigidity. He continued to be obtunded but I think at this time this could be related to his medications rather than ongoing seizure. I discussed the patient's condition with the telestroke neurologist at [facility]. CT of the brain showed no acute abnormality but CT angiography did show an internal carotid stenosis but it was not on the side that would explain the patient's symptoms. He does have a history of an MRI recently that does show some abnormality that could explain the patient's right sided symptoms. Given the patient's condition at this time I discussed his condition with the on-call [facility] hospitalist. They have agreed to evaluate the patient in the emergency department for further management and disposition. Triage Nursing notes reviewed. Prior medical records reviewed Vital Signs: reviewed and remarkable for no significant abnormalities Differential diagnosis: Epilepsy, infection, hypoglycemia, electrolyte abnormalities, cardiac sources, intracerebral event, trauma, toxicologic, neurologic, syncope, as well as other pathologies. ER treatment provided: See below Diagnostics interpreted by me: ECG: EKG was obtained in the emergency department. My interpretation is normal sinus rhythm at 80 bpm. There is no ectopy. Nonspecific ST depressions were noted in the anterior and apical leads. This was compared to a tracing from April 29, 2025. No changes were noted. Cardiac Monitoring: An order was placed for continuous cardiac monitoring. The monitor shows a rate of 72 bpm with sinus rhythm. Laboratory studies: As stated above and show below. Imaging studies: See below. Radiographic imaging was reviewed by myself Consultation(s): I discussed this case with Dr. Ashley who is on for telestroke neurology at [facility]. I discussed this case with Dr. Mccollum who is on-call for the [facility] hospitalist group. ED COURSE: Procedures: none Critical Care: I have personally spent greater than 40 minutes of critical care time in the direct management of this patient. This includes bedside care, interpretation of diagnostic studies, and testing, discussion with consultants, patient, and family members, and other required patient management activities. This 40 minutes is in excess of all separately billable procedures. Past Med/Surg History Problem List (Updated 07/28/25 @ 22:55 by Eduardo Burch DO) Internal carotid artery stenosis (Acute) Stroke-like symptoms (Acute) Seizure (Acute) Seizure disorder Complex renal cyst Peripancreatic fluid collection Pancreatitis (Acute) Pancreatic pseudocyst Hypokalemia (Acute) Epigastric pain Constipation Leukocytosis Prediabetes Pancreatitis (Acute) Decreased pedal pulses Pulmonary nodule GERD without esophagitis Anxiety Mesial temporal sclerosis Stable per 10/18/22 neuro note Folate deficiency Erectile dysfunction Kidney lesion (Acute) Renal Cyst -CT of Abd noted 02/18/21 first describes 7 mm left renal lesion, hyperdense cyst versus solid renal neoplasm. A nonemergent dedicated renal CT scan or MRI is recommended in follow-up -Renal CT 02/19/21-7 mm left renal lesion in question appeared hyperdense to renal parenchyma on the noncontrast portion of the study and did not demonstrate significant enhancement. This lesion is felt to represent a hyperdense cyst. A 12 month follow-up study would seem prudent. -Renal CT 05/31/21-Stable 9 mm hyperdense/hemorrhagic cyst within the left kidney, There is a 6 mm hypodense lesion within the left kidney which is technically too small to characterize but favors a simple cyst. Tobacco dependence Cricopharyngeal dysphagia Per 08/2022 records- stable; video swallow with cricopharyngeal bar; s/p EGD 07/27/22 with esophageal stenosis which was like cause of the bar seen- s/p dilation- dysphagia improved/resolved Esophageal dysphagia Improved per 08/2022 PCP records Cervical spondylosis Vertebral artery stenosis Per 07/2020 Neck CTA- severe stenosis of the left vertebral artery of the C4 level due to osteophytes Medical History Unintentional weight loss Pancreatitis History of alcohol abuse PAD (peripheral artery disease) COPD (chronic obstructive pulmonary disease) Intermittent claudication Chronic cholecystitis Alcoholism in recovery Tobacco use disorder Alcohol abuse Hypothyroidism Hypertension Calculus of pancreatic duct Pancreatic duct obstruction Hx of pleural effusion Marijuana use Hx of aspiration pneumonitis Poor historian Hx of seizure disorder Degenerative disc disease History of pancreatitis (~02/2020) Thrombocytopenia Depression Macrocytic anemia Surgical History History of esophagogastroduodenoscopy (EGD) S/P epidural steroid injection History of colonoscopy Status post tooth extraction Hx of neck surgery (05/2018) Family History Aunt Parkinson disease Cerebral aneurysm Mother Cerebral aneurysm Depression Anemia Uncle Cerebral aneurysm Other No family history of adverse response to anesthesia Denies family history of Ovarian cancer Prostate cancer Myocardial infarction Breast cancer Lung cancer Colorectal cancer Social History Smoking Status: Unknown if ever smoked Tobacco Type: Cigarettes Age Started Using Tobacco: 17; packs per day: 1; Cigarettes Per Day: 1 pack per day; Second Hand Exposure: No; Do You Dip or Chew Tobacco: No; Hx Alcohol Use: Yes Alcohol type: hard liquor Alcohol Intake Frequency Comment: fifth of vodka per week Hx Substance Use: Yes Prescribed Medications: Marijuana Last Used Substance: Days (ago) Last Used Substance Other:: 04/16/25 Substance Use Type Other:: Daily Preferred Language: Icelandic Communication Ability: Effective Visual Impairment: No Limitations Hearing Ability: Normal Concrete Curer Required: No Beliefs That Will Affect Care: None marital status: Single Current Living Situation: Significant Other Current Living Situation Comment: fiance current occupational status: disabled Feels Safe at Home: Yes Childhood Exposure to Second-Hand Smoke: Yes Diet: regular Diet Comment: regular caffeine: No during the past year weight has: remained stable Dental Care, Regularly: No Physical Activity Frequency: Does not Exercise Seatbelt Use: always Sunscreen Use: No Assistive Devices: Cane and Walker Allergies Allergies Allergy/AdvReac Type Severity Reaction Status Date / Time hydromorphone Allergy Mild Itching Verified 06/23/25 16:17 sertraline Allergy Mild Abdominal Verified 06/23/25 16:17 Pain Home Meds Home Medications Medication Instructions Recorded Confirmed cyanocobalamin (vitamin B-12) 1,000 mcg PO QPM 04/29/25 06/23/25 1,000 mcg tablet (Vitamin B-12) pantoprazole 40 mg tablet,delayed 40 mg PO QAM 04/29/25 06/23/25 release Previous Rx's Medication Instructions Recorded ipratropium 20 mcg-albuterol 100 1 puff inhalation QID Shortness Of 05/29/24 mcg/actuation mist for inhalation Breath #4 grams (Combivent Respimat) folic acid 1 mg tablet 1 mg PO QAM #90 tabs 08/26/24 thiamine HCl (vitamin B1) 100 mg 100 mg PO QAM #30 tabs 11/12/24 tablet duloxetine 60 mg capsule,delayed 60 mg PO DAILY #90 caps 03/16/25 release levothyroxine 25 mcg tablet 25 mcg PO DAILYBB #90 tabs 03/25/25 (Synthroid) cholecalciferol (vitamin D3) 25 25 mcg PO DAILY #30 caps 03/27/25 mcg (1,000 unit) capsule acetaminophen 500 mg tablet 1,000 mg (2 x 500 mg) PO Q8H PRN 05/01/25 (Tylenol Extra Strength) pain #30 tabs polyethylene glycol 3350 17 gram 17 g PO BID #60 ea 05/01/25 oral powder packet (Miralax) sennosides 8.6 mg tablet (Senna 17.2 mg (2 x 8.6 mg) PO HS #60 tabs 05/01/25 Lax) atorvastatin 20 mg tablet 20 mg PO QPM #90 tabs 05/04/25 tramadol 50 mg tablet 50 mg PO BID PRN pain #6 tabs 06/03/25 lamotrigine 200 mg tablet 200 mg PO BID #60 tabs 06/15/25 fshqqw-kdgjyhnw-coqnxax(pork)10,500-35,500-61,500 2 cap PO AC 30 days #90 caps 06/23/25 unit capsule,del rel (Pancreaze) trazodone 50 mg tablet 50 mg PO DAILY #90 tabs 07/28/25 Results & Data (ED) Vital Signs Vital Signs - 24 hr 07/28/25 19:47 07/28/25 19:51 07/28/25 19:51 Temperature Temperature Source Pulse Rate 95 H 96 H Pulse Rate from SpO2 Sensor 99 H Respiratory Rate 19 Blood Pressure 152/81 H Blood Pressure Mean 104 Pulse Oximetry 100 Oxygen Delivery Method Non-rebreather Non-rebreather Oxygen Flow Rate 15 15 Sepsis Recent Fever Within 48 Hours Sepsis New/Unexplained Change in Mental Status Sepsis Action Taken by Nursing 07/28/25 19:53 07/28/25 20:12 07/28/25 20:18 Temperature 36.8 C Temperature Source Axillary Pulse Rate 79 76 Pulse Rate from SpO2 Sensor Respiratory Rate 21 26 H Blood Pressure 139/88 Blood Pressure Mean 105 Pulse Oximetry 100 100 Oxygen Delivery Method Non-rebreather Non-rebreather Oxygen Flow Rate 15 Sepsis Recent Fever Within 48 Hours No Sepsis New/Unexplained Change in Mental Status No Sepsis Action Taken by Nursing No Action Required 07/28/25 20:42 07/28/25 21:00 07/28/25 21:18 Temperature Temperature Source Pulse Rate 87 84 Pulse Rate from SpO2 Sensor 88 85 Respiratory Rate 24 20 Blood Pressure 124/82 132/89 Blood Pressure Mean 96 103 Pulse Oximetry 100 100 76 L Oxygen Delivery Method Non-rebreather Nasal Cannula Oxygen Flow Rate 15 2 Sepsis Recent Fever Within 48 Hours Sepsis New/Unexplained Change in Mental Status Sepsis Action Taken by Nursing 07/28/25 21:21 07/28/25 21:30 07/28/25 21:30 Temperature Temperature Source Pulse Rate Pulse Rate from SpO2 Sensor 72 Respiratory Rate Blood Pressure 119/71 119/71 Blood Pressure Mean 93 93 Pulse Oximetry 100 Oxygen Delivery Method Oxygen Flow Rate Sepsis Recent Fever Within 48 Hours Sepsis New/Unexplained Change in Mental Status Sepsis Action Taken by Nursing 07/28/25 21:30 07/28/25 21:30 07/28/25 21:30 Temperature Temperature Source Pulse Rate Pulse Rate from SpO2 Sensor Respiratory Rate Blood Pressure 119/71 119/71 119/71 Blood Pressure Mean 93 93 93 Pulse Oximetry Oxygen Delivery Method Oxygen Flow Rate Sepsis Recent Fever Within 48 Hours Sepsis New/Unexplained Change in Mental Status Sepsis Action Taken by Nursing 07/28/25 21:30 07/28/25 21:42 07/28/25 22:00 Temperature Temperature Source Pulse Rate 79 74 71 Pulse Rate from SpO2 Sensor 79 74 71 Respiratory Rate 19 17 20 Blood Pressure 109/67 Blood Pressure Mean 81 Pulse Oximetry 96 99 98 Oxygen Delivery Method Nasal Cannula Oxygen Flow Rate 2 Sepsis Recent Fever Within 48 Hours Sepsis New/Unexplained Change in Mental Status Sepsis Action Taken by Nursing 07/28/25 22:30 Temperature Temperature Source Pulse Rate 70 Pulse Rate from SpO2 Sensor 69 Respiratory Rate 16 Blood Pressure 124/70 Blood Pressure Mean 88 Pulse Oximetry 100 Oxygen Delivery Method Nasal Cannula Oxygen Flow Rate 2 Sepsis Recent Fever Within 48 Hours Sepsis New/Unexplained Change in Mental Status Sepsis Action Taken by Long-Term Medications Current Medication List: was personally reviewed by me Laboratory Data Attestation: I reviewed the patient's lab results. 07/28/25 21:17 07/28/25 20:00 Lab Results 07/28/25 07/28/25 07/28/25 Range/Units 20:00 20:09 20:15 WBC Cancelled RBC Cancelled Hgb Cancelled POC Hgb 15.6 (14.0-18.0) g/dl Hct Cancelled POC Hct 46 (42-52) % MCV Cancelled MCH Cancelled MCHC Cancelled RDW Std Deviation Cancelled RDW Coeff of Brianda Cancelled Plt Count Cancelled MPV Cancelled Immature Gran % (Auto) Cancelled Neut % (Auto) Cancelled Lymph % (Auto) Cancelled [place] % (Auto) Cancelled Eos % (Auto) Cancelled Baso % (Auto) Cancelled Neut # (Auto) Cancelled Lymph # (Auto) Cancelled [place] # (Auto) Cancelled Eos # (Auto) Cancelled Baso # (Auto) Cancelled Immature Gran # (Auto) Cancelled Absolute Nucleated RBC Cancelled Nucleated RBC % (auto) Cancelled Neutrophils % (Manual) Cancelled Band Neutrophils % Cancelled Lymphocytes % (Manual) Cancelled Prolymphocyte % Cancelled Reactive Lymphs % (Man) Cancelled Monocytes % (Manual) Cancelled Eosinophils % (Manual) Cancelled Basophils % (Manual) Cancelled Metamyelocytes % (Man) Cancelled Myelocytes % (Man) Cancelled Promyelocytes % (Man) Cancelled Blast Cells % (Manual) Cancelled Plasma Cell % (Manual) Cancelled Other Cells % Cancelled Nucleated RBC % Cancelled Neutrophils # (Manual) Cancelled Band Neutrophils # Cancelled Total Absolute Neuts Cancelled Lymphocytes # (Manual) Cancelled Prolymphocyte # Cancelled Reactive Lymphs # Cancelled Total Abs Lymphocytes Cancelled Monocytes # (Manual) Cancelled Eosinophils # (Manual) Cancelled Basophils # (Manual) Cancelled Metamyelocytes # (Man) Cancelled Myelocytes # (Manual) Cancelled Promyelocytes # (Man) Cancelled Blast Cells # (Man) Cancelled Plasma Cell # (Manual) Cancelled Other Cells # Cancelled Nucleated RBCs # (Man) Cancelled Hypersegmented Neuts Cancelled Hyposegmented Neuts Cancelled Hypogranular Neuts Cancelled Large Granular Lymphs Cancelled # Lrg Granular Lymphs Cancelled Hairy Cells Cancelled Smudge Cells Cancelled Toxic Granulation Cancelled Toxic Vacuolation Cancelled Dohle Bodies Cancelled Yenifer Rods Cancelled Platelet Estimate Cancelled Hypogranular Platelets Cancelled Giant Platelets Cancelled Platelet Satelliting Cancelled RBC Morphology Cancelled Polychromasia Cancelled Hypochromasia Cancelled Poikilocytosis Cancelled Basophilic Stippling Cancelled Anisocytosis Cancelled Microcytosis Cancelled Macrocytosis Cancelled Spherocytes Cancelled Pappenheimer Bodies Cancelled Sickle Cells Cancelled Target Cells Cancelled Tear Drop Cells Cancelled Ovalocytes Cancelled Stomatocytes Cancelled [place]-Belva Bodies Cancelled Echinocytes Cancelled Acanthocytes (Spur) Cancelled Rouleaux Cancelled RBC Agglutinates Cancelled Schistocytes Cancelled Sezary Cell Cancelled PT 11.1 (9.0-12.0) Seconds INR 1.1 (0.9-1.1) APTT 21 (21-31) Seconds PTT Ratio 0.8 POC Sodium 140 (135-144) mmol/L Sodium 138 (136-145) mmol/L POC Potassium 4.0 (3.3-5.0) mmol/L Potassium 4.3 (3.5-5.1) mmol/L POC Chloride 104 (101-112) mmol/L Chloride 105 (98-107) mmol/L Carbon Dioxide 23 (21-32) mmol/L POC Total CO2 23 L (24-31) mmol/L Anion Gap 10 (3-11) POC Anion Gap 18.0 (16-25) mmol/L POC BUN 9 (7-18) mg/dl BUN 10 (6-23) mg/dl Creatinine 0.70 (0.6-1.4) mg/dl POC Creatinine 0.7 (0.6-1.3) mg/dl Est Cr Clr Drug Dosing 99.1 ml/min eGFR 102.25 BUN/Creatinine Ratio 14.3 (10-20) Glucose 116 H (70-99(Fasting)) mg/dl POC Glucose 116 H (70-99) mg/dl POC Glucose (other) 106 H (70-99) mg/dl Calcium 9.2 (8.6-10.3) mg/dl POC Ioniz Calcium Meme 1.15 (1.12-1.32) mmol/l Magnesium 2.0 (1.7-2.4) mg/dl Total Bilirubin 0.5 (0.2-1.0) mg/dl AST 23 (13-39) U/L ALT 12 (7-52) U/L Alkaline Phosphatase 107 H (34-104) U/L Total Creatine Kinase 70 (30-223) U/L Troponin I High Sens 4.6 (0-20) pg/ml Total Protein 7.0 (6.0-8.3) gm/dl Albumin 3.6 (3.4-5.0) gm/dl Globulin 3.4 (2.5-4.0) gm/dl Albumin/Globulin Ratio 1.1 (0.9-2) Lipase 91 H (11-82) U/L TSH 4.037 (0.300-4.500) uIu/ml Ethyl Alcohol mg/dL < 10.0 (<10.0) mg/dl Blood Parasites ID Cancelled 07/28/25 Range/Units 21:17 WBC 17.99 H RBC 4.50 L Hgb 14.0 POC Hgb (14.0-18.0) g/dl Hct 41.7 L POC Hct (42-52) % MCV 92.7 MCH 31.1 MCHC 33.6 RDW Std Deviation 54.4 H RDW Coeff of Brianda 16.1 H Plt Count 311 MPV 10.0 Immature Gran % (Auto) 0.5 Neut % (Auto) 83.5 Lymph % (Auto) 8.4 [place] % (Auto) 7.1 Eos % (Auto) 0.2 Baso % (Auto) 0.3 Neut # (Auto) 15.02 H Lymph # (Auto) 1.51 [place] # (Auto) 1.27 H Eos # (Auto) 0.04 Baso # (Auto) 0.06 Immature Gran # (Auto) 0.09 Absolute Nucleated RBC Nucleated RBC % (auto) Neutrophils % (Manual) Band Neutrophils % Lymphocytes % (Manual) Prolymphocyte % Reactive Lymphs % (Man) Monocytes % (Manual) Eosinophils % (Manual) Basophils % (Manual) Metamyelocytes % (Man) Myelocytes % (Man) Promyelocytes % (Man) Blast Cells % (Manual) Plasma Cell % (Manual) Other Cells % Nucleated RBC % Neutrophils # (Manual) Band Neutrophils # Total Absolute Neuts Lymphocytes # (Manual) Prolymphocyte # Reactive Lymphs # Total Abs Lymphocytes Monocytes # (Manual) Eosinophils # (Manual) Basophils # (Manual) Metamyelocytes # (Man) Myelocytes # (Manual) Promyelocytes # (Man) Blast Cells # (Man) Plasma Cell # (Manual) Other Cells # Nucleated RBCs # (Man) Hypersegmented Neuts Hyposegmented Neuts Hypogranular Neuts Large Granular Lymphs # Lrg Granular Lymphs Hairy Cells Smudge Cells Toxic Granulation Toxic Vacuolation Dohle Bodies Yenifer Rods Platelet Estimate Hypogranular Platelets Giant Platelets Platelet Satelliting RBC Morphology Polychromasia Hypochromasia Poikilocytosis Basophilic Stippling Anisocytosis Microcytosis Macrocytosis Spherocytes Pappenheimer Bodies Sickle Cells Target Cells Tear Drop Cells Ovalocytes Stomatocytes [place]-Belva Bodies Echinocytes Acanthocytes (Spur) Rouleaux RBC Agglutinates Schistocytes Sezary Cell PT (9.0-12.0) Seconds INR (0.9-1.1) APTT (21-31) Seconds PTT Ratio POC Sodium (135-144) mmol/L Sodium (136-145) mmol/L POC Potassium (3.3-5.0) mmol/L Potassium (3.5-5.1) mmol/L POC Chloride (101-112) mmol/L Chloride (98-107) mmol/L Carbon Dioxide (21-32) mmol/L POC Total CO2 (24-31) mmol/L Anion Gap (3-11) POC Anion Gap (16-25) mmol/L POC BUN (7-18) mg/dl BUN (6-23) mg/dl Creatinine (0.6-1.4) mg/dl POC Creatinine (0.6-1.3) mg/dl Est Cr Clr Drug Dosing ml/min eGFR BUN/Creatinine Ratio (10-20) Glucose (70-99(Fasting)) mg/dl POC Glucose (70-99) mg/dl POC Glucose (other) (70-99) mg/dl Calcium (8.6-10.3) mg/dl POC Ioniz Calcium Meme (1.12-1.32) mmol/l Magnesium (1.7-2.4) mg/dl Total Bilirubin (0.2-1.0) mg/dl AST (13-39) U/L ALT (7-52) U/L Alkaline Phosphatase (34-104) U/L Total Creatine Kinase (30-223) U/L Troponin I High Sens (0-20) pg/ml Total Protein (6.0-8.3) gm/dl Albumin (3.4-5.0) gm/dl Globulin (2.5-4.0) gm/dl Albumin/Globulin Ratio (0.9-2) Lipase (11-82) U/L TSH (0.300-4.500) uIu/ml Ethyl Alcohol mg/dL (<10.0) mg/dl Blood Parasites ID Administered Medications Discontinued Medications Sodium Chloride (Nss) 500 mls @ 999 mls/hr IV .Q31M MAKSIM Stop: 07/28/25 20:30 Last Infusion: 07/28/25 21:55 Dose: Infused Documented By: Admin: 07/28/25 20:13 Dose: 999 mls/hr Documented By: JORGE Thiamine HCl 200 mg/ Sodium (Chloride) 52 mls @ 210 mls/hr IV NOW STA Stop: 07/28/25 22:32 Last Admin: 07/28/25 22:45 Dose: 210 mls/hr Documented By: JORGE Ioversol (Optiray 320 125ml) 118 ml IV ONCE ONE Stop: 07/28/25 20:30 Last Admin: 07/28/25 20:30 Dose: 118 ml Documented By: UZIEL Levetiracetam (Levetiracetam 500 Mg/5 Ml Vial) 2,500 mg IV NOW STA Stop: 07/28/25 19:52 Last Admin: 07/28/25 21:49 Dose: Not Given Documented By: Admin: 07/28/25 20:02 Dose: 2,500 mg Documented By: JORGE Lorazepam (Lorazepam 1 Mg/1 Ml Syr Ed Inj Use) 1 mg IV ONE STA Stop: 07/28/25 19:52 Last Admin: 07/28/25 19:57 Dose: 1 mg Documented By: [place] [facility] Data Attestation: I personally reviewed and interpreted this imaging study as follows: My Impression: 1 view chest x-ray was obtained in the emergency department. My interpretation is no free air or definite infiltrate, final report below. Radiologist's Impression: Chest X-Ray 07/28/25 19:51 Exam(s): XR CXR 1 VIEW EXAM: XR Chest, 1 View CLINICAL HISTORY: Reason for exam: sz. TECHNIQUE: Frontal view of the chest. COMPARISON: Chest x-ray 04/29/2025. FINDINGS: Lungs/Pleural space: Stable slight interstitial prominence, fairly symmetrically in the upper lobes, likely chronic. No focal infiltrate, pleural effusion, pneumothorax, or interval change. Heart: No cardiomegaly. Mediastinum: Unremarkable. Bones/Soft Tissues: Stable postoperative change cervicothoracic junction. No acute abnormality. IMPRESSION: 1. No acute process, and no change. Electronically signed by: Ashley Holley M.D. 07/28/25 22:[address] 07/28/25 19:51 Exam(s): CT HEAD Without Contrast EXAM: CT Head Without Intravenous Contrast CLINICAL HISTORY: Reason for exam: syncope. TECHNIQUE: Axial computed tomography images of the head/brain without intravenous contrast. CTDI is 36.65 mGy and DLP is 624.41 mGy-cm. Automated exposure control was utilized for the study. A dose lowering technique was utilized adhering to the principles of ALARA. Moderate motion/artifact. COMPARISON: Head CT 03/12/2023. FINDINGS: Brain: No mass, edema, mass effect or acute infarct. No acute hemorrhage. Mild atrophy and chronic, nonspecific white matter disease, stable. Ventricles: No hydrocephalus or midline shift. Bones/joints: No skull fracture. Soft tissues: No scalp hematoma. Visualized Sinuses: Clear. Mastoid air cells: No mastoid effusion. IMPRESSION: 1. Stable age-related findings. 2. No acute infarct, bleed, or acute intracranial abnormality. Electronically signed by: Ashley Holley M.D. 07/28/25 21:31 PM Head CTA 07/28/25 19:51 Exam(s): CTA HEAD With Contrast IV Amt: 118cc optiray 320 EXAM: CT Angiography Head With Intravenous Contrast CLINICAL HISTORY: Reason for exam: sz. TECHNIQUE: Axial computed tomographic angiography images of the head with intravenous contrast. CTDI is 16 mGy and DLP is 550 mGy-cm. Automated exposure control was utilized for the study. A dose lowering technique was utilized adhering to the principles of ALARA. MIP reconstructed images were created and reviewed. Mild to moderate artifact from motion and venous contamination. CONTRAST: Patient received 118cc optiray 320 of IV contrast COMPARISON: Head CT same day. FINDINGS: Right internal carotid artery: Patent. Right anterior cerebral artery: Patent. Right middle cerebral artery: Patent. Right posterior cerebral artery: Patent. Right vertebral artery: Patent. Left internal carotid artery: Patent. Left anterior cerebral artery: Patent. Left middle cerebral artery: Patent. Left posterior cerebral artery: Patent. Left vertebral artery: Patent. Basilar artery: Patent. Other: No significant intracranial atherosclerosis or stenosis. IMPRESSION: 1. No aneurysm or large vessel occlusion. Electronically signed by: Ashley Holley M.D. 07/28/25 21:36 PM Neck CTA 07/28/25 19:51 CR Exam(s): CTA NECK With Contrast IV Amt: 118cc optiray 320 EXAM: CT Angiography Neck With Intravenous Contrast CLINICAL HISTORY: Reason for exam: sz. TECHNIQUE: Routine carotid CT angiography protocol was performed with intravenous contrast. NASCET criteria using the distal ICAs for comparison were used for evaluation of stenoses. CTDI is 12 mGy and DLP is 550 mGy-cm. Automated exposure control was utilized for the study. A dose lowering technique was utilized adhering to the principles of ALARA. MIP reconstructed images were created and reviewed. CONTRAST: Patient received 118cc optiray 320 of IV contrast COMPARISON: None. FINDINGS: Right common carotid artery: Patent. Right internal carotid artery: Patent. Mild, noncalcified atherosclerotic plaque, without significant stenosis. Right vertebral artery: Patent. Right dominant system. Left common carotid artery: Patent. Left internal carotid artery: Severe, Long segment stenosis proximal ICA, 90-95%, predominantly soft plaque, with punctate calcific plaque. Exact etiology not ascertained, probably atherosclerotic, though dissection not excluded. Left vertebral artery: Patent. Other: There is a superficial cyst in the right submental region measuring 2.6 x 1.8 x 2.2 cm, probably superficial to the platysma muscle. IMPRESSION: 1. Long segment, severe LEFT ICA stenosis, maybe due to high-risk, soft plaque. Dissection not entirely excluded. 2. Similar noncalcified atherosclerosis right carotid bifurcation, without significant stenosis. 3. No other dissection/occlusion/ significant stenosis. 4. Nonspecific right submental cyst. CAROTID STENOSIS REFERENCE USING NASCET CRITERIA: % ICA stenosis = (1 - narrowest ICA diameter/diameter of distal cervical ICA) x 100. Mild - <50% stenosis. Moderate - 50-69% stenosis. Severe - 70-94% stenosis. Near occlusion - 95-99% stenosis. Occluded - 100% stenosis. Communications: Call Doctor Above results Electronically signed by: Ashley Holley M.D. 07/28/25 21:35 PM Discharge Plan Visit Data Chief Complaint: Seizure Stated Complaint: SEIZURE ED Provider: Eduardo Burch Discharge Problem: Seizure, Stroke-like symptoms, Internal carotid artery stenosis Patient Disposition: Being Evaluated by Hospitalist Condition: Fair Forms Stand Alone Forms: [facility], Important Visit Information Prescriptions Prescriptions: No Action Combivent Respimat 20-100 mcg/actuation mist 1 puff inhalation QID Qty: 4 5RF folic acid 1 mg tablet 1 mg PO QAM Qty: 90 2RF thiamine HCl (vitamin B1) 100 mg tablet 100 mg PO QAM Qty: 30 4RF levothyroxine [Synthroid] 25 mcg tablet 25 mcg PO DAILYBB Qty: 90 1RF cholecalciferol (vitamin D3) 25 mcg (1,000 unit) capsule 25 mcg PO DAILY Qty: 30 0RF Patient Comments: 04/17- otc unable to verify atorvastatin 20 mg tablet 20 mg PO QPM Qty: 90 2RF Rx Instructions: Take with Co Q10 100 mg - Aluy-pbk-zbysocw lamotrigine 200 mg tablet 200 mg PO BID Qty: 60 5RF trazodone 50 mg tablet 50 mg PO DAILY Qty: 90 1RF duloxetine 60 mg capsule,delayed release(DR/EC) 60 mg PO DAILY Qty: 90 2RF Pancreaze 10,500-35,500- 61,500 unit capsule,delayed release(DR/EC) 2 cap PO AC 30 Days Qty: 90 2RF Rx Instructions: administer with meals tramadol 50 mg tablet 50 mg PO BID PRN (Reason: pain) Qty: 6 0RF cyanocobalamin (vitamin B-12) [Vitamin B-12] 1,000 mcg tablet 1,000 mcg PO QPM pantoprazole 40 mg tablet,delayed release (DR/EC) 40 mg PO QAM acetaminophen [Tylenol Extra Strength] 500 mg Tablet 1,000 mg PO Q8H PRN (Reason: pain) Qty: 30 0RF Rx Instructions: Hoiw-duw-bcgfgeu sennosides [Senna Lax] 8.6 mg Tablet 17.2 mg PO HS Qty: 60 0RF polyethylene glycol 3350 [Miralax] 17 gram Powder In Packet 17 g PO BID Qty: 60 0RF Referrals Referrals: Jeff Grimaldo CRNP [Primary Care Provider] -
[2025-07-28] MEDS: SODIUM CHLORIDE 0.9% 500 ML IV SCH (20:13)
[2025-07-28] MEDS: OPTIRAY 320 125ml IV ONE (20:30)
[2025-07-28 20:59] LABS: Alanine Aminotransferase 12.0 U/L (7-52); Albumin Globulin Ratio 1.1 (0.9-2); Albumin Level 3.6 gm/dl (3.4-5.0); Alkaline Phosphatase 107.0 U/L (34-104); Anion Gap 10.0 (3-11); Bilirubin,Total 0.5 mg/dl (0.2-1.0); Blood Urea Nitrogen 10.0 mg/dl (6-23); Calcium 9.2 mg/dl (8.6-10.3); Carbon Dioxide 23.0 mmol/L (21-32); Chloride 105.0 mmol/L (98-107); Creatine Kinase 70.0 U/L (30-223); Creatinine Clr Calc Pharmacy 99.1 ml/min; Globulin 3.4 gm/dl (2.5-4.0); Glucose 116.0 mg/dl (70-99(Fasting)); Lipase 91.0 U/L (11-82); Magnesium 2.0 mg/dl (1.7-2.4); Potassium 4.3 mmol/L (3.5-5.1); Sodium 138.0 mmol/L (136-145); Total Protein 7.0 gm/dl (6.0-8.3)
[2025-07-28 21:03] LABS: INR 1.1 (0.9-1.1); Partial Thromboplastin Time 21 Seconds (21-31); Prothrombin Time 11.1 Seconds (9.0-12.0)
[2025-07-28 21:15] LABS: Thyroid Stimulating Hormone 4.037 uIu/ml (0.300-4.500)
--- NOTE | 2025-07-28 21:32 | CT Scan Report ---
Exam(s): CT HEAD Without Contrast EXAM: CT Head Without Intravenous Contrast CLINICAL HISTORY: Reason for exam: syncope. TECHNIQUE: Axial computed tomography images of the head/brain without intravenous contrast. CTDI is 36.65 mGy and DLP is 624.41 mGy-cm. Automated exposure control was utilized for the study. A dose lowering technique was utilized adhering to the principles of ALARA. Moderate motion/artifact. COMPARISON: Head CT 03/12/2023. FINDINGS: Brain: No mass, edema, mass effect or acute infarct. No acute hemorrhage. Mild atrophy and chronic, nonspecific white matter disease, stable. Ventricles: No hydrocephalus or midline shift. Bones/joints: No skull fracture. Soft tissues: No scalp hematoma. Visualized Sinuses: Clear. Mastoid air cells: No mastoid effusion. IMPRESSION: 1. Stable age-related findings. 2. No acute infarct, bleed, or acute intracranial abnormality. Electronically signed by: Ashley Holley M.D. 07/28/25 21:31 PM
--- NOTE | 2025-07-28 21:36 | CT Scan Report ---
Exam(s): CTA NECK With Contrast IV Amt: 118cc optiray 320 EXAM: CT Angiography Neck With Intravenous Contrast CLINICAL HISTORY: Reason for exam: sz. TECHNIQUE: Routine carotid CT angiography protocol was performed with intravenous contrast. NASCET criteria using the distal ICAs for comparison were used for evaluation of stenoses. CTDI is 12 mGy and DLP is 550 mGy-cm. Automated exposure control was utilized for the study. A dose lowering technique was utilized adhering to the principles of ALARA. MIP reconstructed images were created and reviewed. CONTRAST: Patient received 118cc optiray 320 of IV contrast COMPARISON: None. FINDINGS: Right common carotid artery: Patent. Right internal carotid artery: Patent. Mild, noncalcified atherosclerotic plaque, without significant stenosis. Right vertebral artery: Patent. Right dominant system. Left common carotid artery: Patent. Left internal carotid artery: Severe, Long segment stenosis proximal ICA, 90-95%, predominantly soft plaque, with punctate calcific plaque. Exact etiology not ascertained, probably atherosclerotic, though dissection not excluded. Left vertebral artery: Patent. Other: There is a superficial cyst in the right submental region measuring 2.6 x 1.8 x 2.2 cm, probably superficial to the platysma muscle. IMPRESSION: 1. Long segment, severe LEFT ICA stenosis, maybe due to high-risk, soft plaque. Dissection not entirely excluded. 2. Similar noncalcified atherosclerosis right carotid bifurcation, without significant stenosis. 3. No other dissection/occlusion/ significant stenosis. 4. Nonspecific right submental cyst. CAROTID STENOSIS REFERENCE USING NASCET CRITERIA: % ICA stenosis = (1 - narrowest ICA diameter/diameter of distal cervical ICA) x 100. Mild - <50% stenosis. Moderate - 50-69% stenosis. Severe - 70-94% stenosis. Near occlusion - 95-99% stenosis. Occluded - 100% stenosis. Communications: Call Doctor Above results Electronically signed by: Ashley Holley M.D. 07/28/25 21:35 PM
--- NOTE | 2025-07-28 21:37 | CT Scan Report ---
Exam(s): CTA HEAD With Contrast IV Amt: 118cc optiray 320 EXAM: CT Angiography Head With Intravenous Contrast CLINICAL HISTORY: Reason for exam: sz. TECHNIQUE: Axial computed tomographic angiography images of the head with intravenous contrast. CTDI is 16 mGy and DLP is 550 mGy-cm. Automated exposure control was utilized for the study. A dose lowering technique was utilized adhering to the principles of ALARA. MIP reconstructed images were created and reviewed. Mild to moderate artifact from motion and venous contamination. CONTRAST: Patient received 118cc optiray 320 of IV contrast COMPARISON: Head CT same day. FINDINGS: Right internal carotid artery: Patent. Right anterior cerebral artery: Patent. Right middle cerebral artery: Patent. Right posterior cerebral artery: Patent. Right vertebral artery: Patent. Left internal carotid artery: Patent. Left anterior cerebral artery: Patent. Left middle cerebral artery: Patent. Left posterior cerebral artery: Patent. Left vertebral artery: Patent. Basilar artery: Patent. Other: No significant intracranial atherosclerosis or stenosis. IMPRESSION: 1. No aneurysm or large vessel occlusion. Electronically signed by: Ashley Holley M.D. 07/28/25 21:36 PM
--- NOTE | 2025-07-28 22:05 | XRay Report ---
Exam(s): XR CXR 1 VIEW EXAM: XR Chest, 1 View CLINICAL HISTORY: Reason for exam: sz. TECHNIQUE: Frontal view of the chest. COMPARISON: Chest x-ray 04/29/2025. FINDINGS: Lungs/Pleural space: Stable slight interstitial prominence, fairly symmetrically in the upper lobes, likely chronic. No focal infiltrate, pleural effusion, pneumothorax, or interval change. Heart: No cardiomegaly. Mediastinum: Unremarkable. Bones/Soft Tissues: Stable postoperative change cervicothoracic junction. No acute abnormality. IMPRESSION: 1. No acute process, and no change. Electronically signed by: Ashley Holley M.D. 07/28/25 22:04 PM
[2025-07-28 22:07] LABS: Hematocrit (blood only) 41.7 % (42.0-52.0); Hemoglobin 14.0 g/dL (14.0-18.0); Immature Granulocytes # (auto) 0.09 K/uL (0.01-0.20); Immature Granulocytes % (auto) 0.5 %; Mean Corpuscular Hemoglobin 31.1 pg (25.0-34.0); Mean Corpuscular Volume 92.7 fL (80.0-100.0); Platelet Count 311 K/uL (130-400); RDW Standard Deviation 54.4 fL (36.4-46.3); Red Blood Count 4.50 M/uL (4.70-6.10); White Blood Count 17.99 K/ul (4.8-10.8)
[2025-07-28] MEDS: THIAMINE HCL 200 MG in SODIUM CHLORIDE 0.9% 50 ML IV STA (22:45)
--- NOTE | 2025-07-29 00:13 | History & Physical Report ---
Date of Service July 29, 2025 Assessment & Plan (1) Stroke-like symptoms: (2) Partial seizure: (3) Mesial temporal sclerosis: (4) More than 50 percent stenosis of left internal carotid artery: Plan The patient is a 65-year-old male with a past medical history including seizure disorder, history of acute on chronic pancreatitis, pancreatic pseudocyst, prediabetes, GERD without esophagitis, mesial temporal sclerosis, anxiety, tobacco dependence, esophageal dysphagia, and vertebral artery stenosis. The patient was brought to the emergency department due to concern regarding a seizure episode that began around 6 PM as witnessed by his significant other, who called 911. She noted that he had tonic-clonic activity primarily involved his right side, and was then confused. The patient did receive Versed IM prior to arrival. Upon arrival to the emergency department, he continued to be confused, was not able to answer questions, but his supplied information regarding HPI and ROS. The patient was evaluated as a stroke alert in the emergency department. CT scan of the head and CTA of the head were both negative. CTA of neck showed a long segment of severe stenosis in the LICA, that may be due to a high risk of soft plaque. The patient had had a brain MRI on 07/12/2025, and telestroke neurology consult felt that there was an area on the MRI that was responsible for his partial seizure activity. They did relate that the stenosis of the LICA would need to be addressed. From the emergency department the patient received the following: Normal saline 500 mL bolus, lorazepam 1 mg IV, Keppra 2500 mg IV, and thiamine 200 mg IV. His most recent hospitalizations were all for acute on chronic pancreatitis on the following dates: 04/17-04/22/2025, 04/29-05/02/2025, and 05/31-06/03/2025. His significant other reports that he has continued to refrain from alcohol use. #Partial motor seizure involving right side/mesial temporal sclerosis- Patient was noted to have primarily right upper and lower extremity involvement with tonic-clonic activity as noted by . Stroke alert processing in the ED CT scan of head was negative CTA of head was negative CTA of the neck with long severe LICA stenosis, that may be due to high risk of soft plaque. Per stroke neurology recommendation, ED Keppra 2500 mg IV. Will continue Keppra 500 mg IV twice daily Seizure precautions NPO Neurology consult #LICA stenosis- Telestroke neurology consult did not feel that this was directly involved in his symptoms, but did suggest evaluation would be needed. Neurology consult to evaluate #History of alcohol use disorder- reports that he continues to be abstinent. Thiamine 100 mg IV every morning Folic acid 1 mg IV every morning #Recurrent acute on chronic pancreatitis- Several recent admissions. No active issue at this time. #Hyperlipidemia- Hold atorvastatin until able to take oral #Psychiatric/seizure disorder history- Holding trazodone, lamotrigine, duloxetine, until able to take p.o. #Vitamin supplementation- Holding vitamin D3, vitamin B12, and oral thiamine and folic acid until able to take p.o. History of Present Illness Primary Care Provider: LANDON Paredes The patient is a 65-year-old male with a past medical history including seizure disorder, history of acute on chronic pancreatitis, pancreatic pseudocyst, prediabetes, GERD without esophagitis, mesial temporal sclerosis, anxiety, tobacco dependence, esophageal dysphagia, and vertebral artery stenosis. The patient was brought to the emergency department due to concern regarding a seizure episode that began around 6 PM as witnessed by his significant other, who called 911. She noted that he had tonic-clonic activity primarily involved his right side, and was then confused. The patient did receive Versed IM prior to arrival. Upon arrival to the emergency department, he continued to be confused, was not able to answer questions, but his supplied information regarding HPI and ROS. The patient was evaluated as a stroke alert in the emergency department. CT scan of the head and CTA of the head were both negative. CTA of neck showed a long segment of severe stenosis in the LICA, that may be due to a high risk of soft plaque. The patient had had a brain MRI on 07/12/2025, and telestroke neurology consult felt that there was an area on the MRI that was responsible for his partial seizure activity. They did relate that the stenosis of the LICA would need to be addressed. From the emergency department the patient received the following: Normal saline 500 mL bolus, lorazepam 1 mg IV, Keppra 2500 mg IV, and thiamine 200 mg IV. His most recent hospitalizations were all for acute on chronic pancreatitis on the following dates: 04/17-04/22/2025, 04/29-05/02/2025, and 05/31-06/03/2025. His significant other reports that he has continued to refrain from alcohol use. Allergies Allergy/AdvReac Type Severity Reaction Status Date / Time hydromorphone Allergy Mild Itching Verified 06/23/25 16:17 sertraline Allergy Mild Abdominal Verified 06/23/25 16:17 Pain Home Medications Medication Instructions Recorded Confirmed Type ipratropium 20 mcg-albuterol 100 1 puff inhalation QID Shortness Of 05/29/24 06/23/25 Rx mcg/actuation mist for inhalation Breath #4 grams (Combivent Respimat) folic acid 1 mg tablet 1 mg PO QAM #90 tabs 08/26/24 06/23/25 Rx thiamine HCl (vitamin B1) 100 mg 100 mg PO QAM #30 tabs 11/12/24 06/23/25 Rx tablet duloxetine 60 mg capsule,delayed 60 mg PO DAILY #90 caps 03/16/25 06/23/25 Rx release levothyroxine 25 mcg tablet 25 mcg PO DAILYBB #90 tabs 03/25/25 06/23/25 Rx (Synthroid) cholecalciferol (vitamin D3) 25 25 mcg PO DAILY #30 caps 03/27/25 06/23/25 Rx mcg (1,000 unit) capsule cyanocobalamin (vitamin B-12) 1,000 mcg PO QPM 04/29/25 06/23/25 History 1,000 mcg tablet (Vitamin B-12) pantoprazole 40 mg tablet,delayed 40 mg PO QAM 04/29/25 06/23/25 History release acetaminophen 500 mg tablet 1,000 mg (2 x 500 mg) PO Q8H PRN 05/01/25 06/23/25 Rx (Tylenol Extra Strength) pain #30 tabs polyethylene glycol 3350 17 gram 17 g PO BID #60 ea 05/01/25 06/23/25 Rx oral powder packet (Miralax) sennosides 8.6 mg tablet (Senna 17.2 mg (2 x 8.6 mg) PO HS #60 tabs 05/01/25 06/23/25 Rx Lax) atorvastatin 20 mg tablet 20 mg PO QPM #90 tabs 05/04/25 06/23/25 Rx tramadol 50 mg tablet 50 mg PO BID PRN pain #6 tabs 10/29/25 11/18/25 Rx lamotrigine 200 mg tablet 200 mg PO BID #60 tabs 06/15/25 06/23/25 Rx svklac-jhrlztpr-fxwiaqx(pork)10,500-35,500-61,500 2 cap PO AC 30 days #90 caps 06/23/25 06/23/25 Rx unit capsule,del rel (Pancreaze) trazodone 50 mg tablet 50 mg PO DAILY #90 tabs 07/28/25 Rx Past Med/Surg History Problem List (Updated 07/29/25 @ 04:52 by Freddy Thomason MD) Partial seizure More than 50 percent stenosis of left internal carotid artery Internal carotid artery stenosis (Acute) Stroke-like symptoms (Acute) Seizure (Acute) Seizure disorder Complex renal cyst Peripancreatic fluid collection Pancreatitis (Acute) Pancreatic pseudocyst Hypokalemia (Acute) Epigastric pain Constipation Leukocytosis Prediabetes Pancreatitis (Acute) Decreased pedal pulses Pulmonary nodule GERD without esophagitis Anxiety Mesial temporal sclerosis Stable per 10/18/22 neuro note Folate deficiency Erectile dysfunction Kidney lesion (Acute) Renal Cyst -CT of Abd noted 02/18/21 first describes 7 mm left renal lesion, hyperdense cyst versus solid renal neoplasm. A nonemergent dedicated renal CT scan or MRI is recommended in follow-up -Renal CT 02/19/21-7 mm left renal lesion in question appeared hyperdense to renal parenchyma on the noncontrast portion of the study and did not demonstrate significant enhancement. This lesion is felt to represent a hyperdense cyst. A 12 month follow-up study would seem prudent. -Renal CT 05/31/21-Stable 9 mm hyperdense/hemorrhagic cyst within the left kidney, There is a 6 mm hypodense lesion within the left kidney which is technically too small to characterize but favors a simple cyst. Tobacco dependence Cricopharyngeal dysphagia Per 08/2022 records- stable; video swallow with cricopharyngeal bar; s/p EGD 07/27/22 with esophageal stenosis which was like cause of the bar seen- s/p dilation- dysphagia improved/resolved Esophageal dysphagia Improved per 08/2022 PCP records Cervical spondylosis Vertebral artery stenosis Per 07/2020 Neck CTA- severe stenosis of the left vertebral artery of the C4 level due to osteophytes Medical History Unintentional weight loss Pancreatitis History of alcohol abuse PAD (peripheral artery disease) COPD (chronic obstructive pulmonary disease) Intermittent claudication Chronic cholecystitis Alcoholism in recovery Tobacco use disorder Alcohol abuse Hypothyroidism Hypertension Calculus of pancreatic duct Pancreatic duct obstruction Hx of pleural effusion Marijuana use Hx of aspiration pneumonitis Poor historian Hx of seizure disorder Degenerative disc disease History of pancreatitis (~02/2020) Thrombocytopenia Depression Macrocytic anemia Surgical History History of esophagogastroduodenoscopy (EGD) S/P epidural steroid injection History of colonoscopy Status post tooth extraction Hx of neck surgery (05/2018) Family History Aunt Parkinson disease Cerebral aneurysm Mother Cerebral aneurysm Depression Anemia Uncle Cerebral aneurysm Other No family history of adverse response to anesthesia Denies family history of Ovarian cancer Prostate cancer Myocardial infarction Breast cancer Lung cancer Colorectal cancer Social History Smoking Status: Current every day smoker Tobacco Type: Cigarettes Age Started Using Tobacco: 17; packs per day: 1; Cigarettes Per Day: 1 pack per day; Second Hand Exposure: No; Do You Dip or Chew Tobacco: No; Tobacco Cessation Education Requested by Patient: No Hx Alcohol Use: Yes Alcohol type: hard liquor Alcohol Intake Frequency Comment: fifth of vodka per week Hx Substance Use: Yes Prescribed Medications: Marijuana Last Used Substance: Days (ago) Last Used Substance Other:: 04/16/25 Substance Use Type Other:: Daily Preferred Language: [place] Communication Ability: Effective Visual Impairment: No Limitations Hearing Ability: Normal Medical Genetics Director Required: No Beliefs That Will Affect Care: None marital status: Single Current Living Situation: Spouse Current Living Situation Comment: fiance current occupational status: disabled Other Information That Helps Us Care for You: No Feels Safe at Home: Yes Safety Concerns: Feels Safe At This Time Childhood Exposure to Second-Hand Smoke: Yes Diet: regular Diet Comment: regular caffeine: No during the past year weight has: remained stable Dental Care, Regularly: No Physical Activity Frequency: Does not Exercise Seatbelt Use: always Sunscreen Use: No Assistive Devices: Cane Review of Systems Review of Systems: Patient is not able to contribute significantly to HPI or ROS due to postictal state, and probably in part from residual from Versed given prehospital Physical Exam Physical Exam: The patient is awake, confused, normocephalic and atraumatic, lying in bed and in no acute distress. HEENT--PERRL, EOMI, mucous membranes and oropharynx dry. Neck--supple. No JVD. No bruits. Thyroid normal, trachea midline, no adenopathy. Heart--normal S1 and S2. No murmurs, rubs or gallops. Lungs--clear bilaterally, no respiratory distress, no accessory muscle use. Abdomen--normal bowel sounds and soft. Nontender. Nondistended, no hernias or masses, no organomegaly. Extremities--no cyanosis or clubbing. No edema. There are good distal pulses b/l. Dermatologic--normal skin turgor, normal color, no abnormal lymph nodes, no rash. Neurologic--cranial nerves II through XII grossly intact. Limited exam due to decreased ability to participate Rheumatologic--normal range of motion. Psychiatric--confused Results & Data Results & Data Vital Signs (Past 12 Hours) Vital Signs Temp Pulse Resp BP Pulse Ox O2 Del Method O2 Flow Rate 07/28/25 23:36 78 07/28/25 22:30 70 16 124/70 100 Nasal Cannula 2 07/28/25 22:00 71 20 109/67 98 Nasal Cannula 2 07/28/25 21:42 74 17 99 07/28/25 21:30 79 19 96 07/28/25 21:30 119/71 07/28/25 21:30 119/71 07/28/25 21:30 119/71 07/28/25 21:30 119/71 07/28/25 21:30 119/71 07/28/25 21:21 100 07/28/25 21:18 76 L 07/28/25 21:00 84 20 132/89 100 Nasal Cannula 2 07/28/25 20:42 87 24 124/82 100 Non-rebreather 15 07/28/25 20:18 76 26 H 100 Non-rebreather 07/28/25 20:12 79 21 139/88 100 Non-rebreather 15 07/28/25 19:53 36.8 C 07/28/25 19:51 96 H 19 152/81 H 100 Non-rebreather 15 07/28/25 19:51 Non-rebreather 15 07/28/25 19:47 95 H Laboratory Results Laboratory Results WBC 17.99 K/ul (4.8-10.8) H 07/28/25 21:17 RBC 4.50 M/uL (4.70-6.10) L 07/28/25 21:17 Hgb 14.0 g/dL (14.0-18.0) 07/28/25 21:17 POC Hgb 15.6 g/dl (14.0-18.0) 07/28/25 20:09 Hct 41.7 % (42.0-52.0) L 07/28/25 21:17 POC Hct 46 % (42-52) 07/28/25 20:09 MCV 92.7 fL (80.0-100.0) 07/28/25 21:17 MCH 31.1 pg (25.0-34.0) 07/28/25 21:17 MCHC 33.6 g/dL (32.0-36.0) 07/28/25 21:17 RDW Std Deviation 54.4 fL (36.4-46.3) H 07/28/25 21:17 RDW Coeff of Brianda 16.1 % (11.5-14.5) H 07/28/25 21:17 Plt Count 311 K/uL (130-400) 07/28/25 21:17 MPV 10.0 fL (9.4-12.4) 07/28/25 21:17 Immature Gran % (Auto) 0.5 % 07/28/25 21:17 Neut % (Auto) 83.5 % 07/28/25 21:17 Lymph % (Auto) 8.4 % 07/28/25 21:17 Polk % (Auto) 7.1 % 07/28/25 21:17 Eos % (Auto) 0.2 % 07/28/25 21:17 Baso % (Auto) 0.3 % 07/28/25 21:17 Neut # (Auto) 15.02 K/uL (1.40-6.50) H 07/28/25 21:17 Lymph # (Auto) 1.51 K/uL (1.20-3.40) 07/28/25 21:17 Polk # (Auto) 1.27 K/uL (0.11-0.59) H 07/28/25 21:17 Eos # (Auto) 0.04 K/uL (0.00-0.50) 07/28/25 21:17 Baso # (Auto) 0.06 K/uL (0.00-0.20) 07/28/25 21:17 Immature Gran # (Auto) 0.09 K/uL (0.01-0.20) 07/28/25 21:17 Absolute Nucleated RBC Cancelled 07/28/25 20:00 Nucleated RBC % (auto) Cancelled 07/28/25 20:00 Neutrophils % (Manual) Cancelled 07/28/25 20:00 Band Neutrophils % Cancelled 07/28/25 20:00 Lymphocytes % (Manual) Cancelled 07/28/25 20:00 Prolymphocyte % Cancelled 07/28/25 20:00 Reactive Lymphs % (Man) Cancelled 07/28/25 20:00 Monocytes % (Manual) Cancelled 07/28/25 20:00 Eosinophils % (Manual) Cancelled 07/28/25 20:00 Basophils % (Manual) Cancelled 07/28/25 20:00 Metamyelocytes % (Man) Cancelled 07/28/25 20:00 Myelocytes % (Man) Cancelled 07/28/25 20:00 Promyelocytes % (Man) Cancelled 07/28/25 20:00 Blast Cells % (Manual) Cancelled 07/28/25 20:00 Plasma Cell % (Manual) Cancelled 07/28/25 20:00 Other Cells % Cancelled 07/28/25 20:00 Nucleated RBC % Cancelled 07/28/25 20:00 Neutrophils # (Manual) Cancelled 07/28/25 20:00 Band Neutrophils # Cancelled 07/28/25 20:00 Total Absolute Neuts Cancelled 07/28/25 20:00 Lymphocytes # (Manual) Cancelled 07/28/25 20:00 Prolymphocyte # Cancelled 07/28/25 20:00 Reactive Lymphs # Cancelled 07/28/25 20:00 Total Abs Lymphocytes Cancelled 07/28/25 20:00 Monocytes # (Manual) Cancelled 07/28/25 20:00 Eosinophils # (Manual) Cancelled 07/28/25 20:00 Basophils # (Manual) Cancelled 07/28/25 20:00 Metamyelocytes # (Man) Cancelled 07/28/25 20:00 Myelocytes # (Manual) Cancelled 07/28/25 20:00 Promyelocytes # (Man) Cancelled 07/28/25 20:00 Blast Cells # (Man) Cancelled 07/28/25 20:00 Plasma Cell # (Manual) Cancelled 07/28/25 20:00 Other Cells # Cancelled 07/28/25 20:00 Nucleated RBCs # (Man) Cancelled 07/28/25 20:00 Hypersegmented Neuts Cancelled 07/28/25 20:00 Hyposegmented Neuts Cancelled 07/28/25 20:00 Hypogranular Neuts Cancelled 07/28/25 20:00 Large Granular Lymphs Cancelled 07/28/25 20:00 # Lrg Granular Lymphs Cancelled 07/28/25 20:00 Hairy Cells Cancelled 07/28/25 20:00 Smudge Cells Cancelled 07/28/25 20:00 Toxic Granulation Cancelled 07/28/25 20:00 Toxic Vacuolation Cancelled 07/28/25 20:00 Dohle Bodies Cancelled 07/28/25 20:00 Yenifer Rods Cancelled 07/28/25 20:00 Platelet Estimate Cancelled 07/28/25 20:00 Hypogranular Platelets Cancelled 07/28/25 20:00 Giant Platelets Cancelled 07/28/25 20:00 Platelet Satelliting Cancelled 07/28/25 20:00 RBC Morphology Cancelled 07/28/25 20:00 Polychromasia Cancelled 07/28/25 20:00 Hypochromasia Cancelled 07/28/25 20:00 Poikilocytosis Cancelled 07/28/25 20:00 Basophilic Stippling Cancelled 07/28/25 20:00 Anisocytosis Cancelled 07/28/25 20:00 Microcytosis Cancelled 07/28/25 20:00 Macrocytosis Cancelled 07/28/25 20:00 Spherocytes Cancelled 07/28/25 20:00 Pappenheimer Bodies Cancelled 07/28/25 20:00 Sickle Cells Cancelled 07/28/25 20:00 Target Cells Cancelled 07/28/25 20:00 Tear Drop Cells Cancelled 07/28/25 20:00 Ovalocytes Cancelled 07/28/25 20:00 Stomatocytes Cancelled 07/28/25 20:00 [place] Bodies Cancelled 07/28/25 20:00 Echinocytes Cancelled 07/28/25 20:00 Acanthocytes (Spur) Cancelled 07/28/25 20:00 Rouleaux Cancelled 07/28/25 20:00 RBC Agglutinates Cancelled 07/28/25 20:00 Schistocytes Cancelled 07/28/25 20:00 Sezary Cell Cancelled 07/28/25 20:00 PT 11.1 Seconds (9.0-12.0) 07/28/25 20:00 INR 1.1 (0.9-1.1) 07/28/25 20:00 APTT 21 Seconds (21-31) 07/28/25 20:00 PTT Ratio 0.8 07/28/25 20:00 POC Sodium 140 mmol/L (135-144) 07/28/25 20:09 Sodium 138 mmol/L (136-145) 07/28/25 20:00 POC Potassium 4.0 mmol/L (3.3-5.0) 07/28/25 20:09 Potassium 4.3 mmol/L (3.5-5.1) 07/28/25 20:00 POC Chloride 104 mmol/L (101-112) 07/28/25 20:09 Chloride 105 mmol/L (98-107) 07/28/25 20:00 Carbon Dioxide 23 mmol/L (21-32) 07/28/25 20:00 POC Total CO2 23 mmol/L (24-31) L 07/28/25 20:09 Anion Gap 10 (3-11) 07/28/25 20:00 POC Anion Gap 18.0 mmol/L (16-25) 07/28/25 20:09 POC BUN 9 mg/dl (7-18) 07/28/25 20:09 BUN 10 mg/dl (6-23) 07/28/25 20:00 Creatinine 0.70 mg/dl (0.6-1.4) 07/28/25 20:00 POC Creatinine 0.7 mg/dl (0.6-1.3) 07/28/25 20:09 Est Cr Clr Drug Dosing 99.1 ml/min 07/28/25 20:00 eGFR 102.25 07/28/25 20:00 BUN/Creatinine Ratio 14.3 (10-20) 07/28/25 20:00 Glucose 116 mg/dl (70-99(Fasting)) H 07/28/25 20:00 POC Glucose 116 mg/dl (70-99) H 07/28/25 20:15 POC Glucose (other) 106 mg/dl (70-99) H 07/28/25 20:09 Calcium 9.2 mg/dl (8.6-10.3) 07/28/25 20:00 POC Ioniz Calcium Meme 1.15 mmol/l (1.12-1.32) 07/28/25 20:09 Magnesium 2.0 mg/dl (1.7-2.4) 07/28/25 20:00 Total Bilirubin 0.5 mg/dl (0.2-1.0) 07/28/25 20:00 AST 23 U/L (13-39) 07/28/25 20:00 ALT 12 U/L (7-52) 07/28/25 20:00 Alkaline Phosphatase 107 U/L (34-104) H 07/28/25 20:00 Total Creatine Kinase 70 U/L (30-223) 07/28/25 20:00 Troponin I High Sens 4.6 pg/ml (0-20) 07/28/25 20:00 Total Protein 7.0 gm/dl (6.0-8.3) 07/28/25 20:00 Albumin 3.6 gm/dl (3.4-5.0) 07/28/25 20:00 Globulin 3.4 gm/dl (2.5-4.0) 07/28/25 20:00 Albumin/Globulin Ratio 1.1 (0.9-2) 07/28/25 20:00 Lipase 91 U/L (11-82) H 07/28/25 20:00 TSH 4.037 uIu/ml (0.300-4.500) 07/28/25 20:00 Ethyl Alcohol mg/dL < 10.0 mg/dl (<10.0) 07/28/25 20:00 Blood Parasites ID Cancelled 07/28/25 20:00 Impressions Chest X-Ray 12/23/25 19:51 Exam(s): XR CXR 1 VIEW EXAM: XR Chest, 1 View CLINICAL HISTORY: Reason for exam: sz. TECHNIQUE: Frontal view of the chest. COMPARISON: Chest x-ray 04/29/2025. FINDINGS: Lungs/Pleural space: Stable slight interstitial prominence, fairly symmetrically in the upper lobes, likely chronic. No focal infiltrate, pleural effusion, pneumothorax, or interval change. Heart: No cardiomegaly. Mediastinum: Unremarkable. Bones/Soft Tissues: Stable postoperative change cervicothoracic junction. No acute abnormality. IMPRESSION: 1. No acute process, and no change. Electronically signed by: Ashley Holley M.D. 07/28/25 22:[address] 07/28/25 19:51 Exam(s): CT HEAD Without Contrast EXAM: CT Head Without Intravenous Contrast CLINICAL HISTORY: Reason for exam: syncope. TECHNIQUE: Axial computed tomography images of the head/brain without intravenous contrast. CTDI is 36.65 mGy and DLP is 624.41 mGy-cm. Automated exposure control was utilized for the study. A dose lowering technique was utilized adhering to the principles of ALARA. Moderate motion/artifact. COMPARISON: Head CT 03/12/2023. FINDINGS: Brain: No mass, edema, mass effect or acute infarct. No acute hemorrhage. Mild atrophy and chronic, nonspecific white matter disease, stable. Ventricles: No hydrocephalus or midline shift. Bones/joints: No skull fracture. Soft tissues: No scalp hematoma. Visualized Sinuses: Clear. Mastoid air cells: No mastoid effusion. IMPRESSION: 1. Stable age-related findings. 2. No acute infarct, bleed, or acute intracranial abnormality. Electronically signed by: Ashley Holley M.D. 07/28/25 21:31 PM Head CTA 07/28/25 19:51 Exam(s): CTA HEAD With Contrast IV Amt: 118cc optiray 320 EXAM: CT Angiography Head With Intravenous Contrast CLINICAL HISTORY: Reason for exam: sz. TECHNIQUE: Axial computed tomographic angiography images of the head with intravenous contrast. CTDI is 16 mGy and DLP is 550 mGy-cm. Automated exposure control was utilized for the study. A dose lowering technique was utilized adhering to the principles of ALARA. MIP reconstructed images were created and reviewed. Mild to moderate artifact from motion and venous contamination. CONTRAST: Patient received 118cc optiray 320 of IV contrast COMPARISON: Head CT same day. FINDINGS: Right internal carotid artery: Patent. Right anterior cerebral artery: Patent. Right middle cerebral artery: Patent. Right posterior cerebral artery: Patent. Right vertebral artery: Patent. Left internal carotid artery: Patent. Left anterior cerebral artery: Patent. Left middle cerebral artery: Patent. Left posterior cerebral artery: Patent. Left vertebral artery: Patent. Basilar artery: Patent. Other: No significant intracranial atherosclerosis or stenosis. IMPRESSION: 1. No aneurysm or large vessel occlusion. Electronically signed by: Ashley Holley M.D. 07/28/25 21:36 PM Neck CTA 07/28/25 19:51 CR Exam(s): CTA NECK With Contrast IV Amt: 118cc optiray 320 EXAM: CT Angiography Neck With Intravenous Contrast CLINICAL HISTORY: Reason for exam: sz. TECHNIQUE: Routine carotid CT angiography protocol was performed with intravenous contrast. NASCET criteria using the distal ICAs for comparison were used for evaluation of stenoses. CTDI is 12 mGy and DLP is 550 mGy-cm. Automated exposure control was utilized for the study. A dose lowering technique was utilized adhering to the principles of ALARA. MIP reconstructed images were created and reviewed. CONTRAST: Patient received 118cc optiray 320 of IV contrast COMPARISON: None. FINDINGS: Right common carotid artery: Patent. Right internal carotid artery: Patent. Mild, noncalcified atherosclerotic plaque, without significant stenosis. Right vertebral artery: Patent. Right dominant system. Left common carotid artery: Patent. Left internal carotid artery: Severe, Long segment stenosis proximal ICA, 90-95%, predominantly soft plaque, with punctate calcific plaque. Exact etiology not ascertained, probably atherosclerotic, though dissection not excluded. Left vertebral artery: Patent. Other: There is a superficial cyst in the right submental region measuring 2.6 x 1.8 x 2.2 cm, probably superficial to the platysma muscle. IMPRESSION: 1. Long segment, severe LEFT ICA stenosis, maybe due to high-risk, soft plaque. Dissection not entirely excluded. 2. Similar noncalcified atherosclerosis right carotid bifurcation, without significant stenosis. 3. No other dissection/occlusion/ significant stenosis. 4. Nonspecific right submental cyst. CAROTID STENOSIS REFERENCE USING NASCET CRITERIA: % ICA stenosis = (1 - narrowest ICA diameter/diameter of distal cervical ICA) x 100. Mild - <50% stenosis. Moderate - 50-69% stenosis. Severe - 70-94% stenosis. Near occlusion - 95-99% stenosis. Occluded - 100% stenosis. Communications: Call Doctor Above results Electronically signed by: Ashley Holley M.D. 07/28/25 21:35 PM Code Status & VTE Plan Code Status Full code VTE Prophylaxis Plan VTE Prophylaxis will be ordered: Yes PG Care Time/CCT Total # of Minutes Spent Total Time Spent with Patient: Total time spent is greater than 50% in coordination of care (as documented) at patient's floor/unit and/or counseling patient: Coding Level of Care Code 71265 INT INP/OBS CARE 375MIN Diagnoses Stroke-like symptoms R29.90 Partial seizure R56.9 Mesial temporal sclerosis G93.81 More than 50 percent stenosis of left internal carotid artery I65.22
[2025-07-29] MEDS ORDERED: ACETAMINOPHEN 1,000 MG/100 ML VIAL IV PRN (00:47)
[2025-07-29 05:20] LABS: Appearance Urine Clear (Clear); Bacteria Urine Automated None Seen (None Seen); Cast Urine Automated 0-2 /lpf (0-2); Epithelial Cell Urine Auto 0-2 /hpf (0-2); Glucose Urine UA Negative (Negative); RBC Urine Automated 0-2 /hpf (0-2); WBC Urine Automated 0-5 /hpf (0-5)
[2025-07-29 05:55] LABS: Hematocrit (blood only) 37.7 % (42.0-52.0); Hemoglobin 13.1 g/dL (14.0-18.0); Immature Granulocytes # (auto) 0.04 K/uL (0.01-0.20); Immature Granulocytes % (auto) 0.3 %; Mean Corpuscular Hemoglobin 31.7 pg (25.0-34.0); Mean Corpuscular Volume 91.3 fL (80.0-100.0); Platelet Count 327 K/uL (130-400); RDW Standard Deviation 53.3 fL (36.4-46.3); Red Blood Count 4.13 M/uL (4.70-6.10); White Blood Count 11.97 K/ul (4.8-10.8)
[2025-07-29 05:56] LABS: Amphetamines+Metham, Urine Neg (Neg); MDMA (Ecstacy), Urine Pos (Neg); Marijuana, Urine Pos (Neg)
[2025-07-29 06:11] LABS: Alanine Aminotransferase 8.0 U/L (7-52); Albumin Globulin Ratio 1.2 (0.9-2); Albumin Level 3.6 gm/dl (3.4-5.0); Alkaline Phosphatase 102.0 U/L (34-104); Anion Gap 7.0 (3-11); Bilirubin,Total 0.6 mg/dl (0.2-1.0); Blood Urea Nitrogen 9.0 mg/dl (6-23); Calcium 9.1 mg/dl (8.6-10.3); Carbon Dioxide 28.0 mmol/L (21-32); Chloride 104.0 mmol/L (98-107); Creatinine Clr Calc Pharmacy 115.6 ml/min; Globulin 2.9 gm/dl (2.5-4.0); Glucose 94.0 mg/dl (70-99(Fasting)); Magnesium 2.0 mg/dl (1.7-2.4); Potassium 4.0 mmol/L (3.5-5.1); Sodium 139.0 mmol/L (136-145); Total Protein 6.5 gm/dl (6.0-8.3)
[2025-07-29 06:28] LABS: INR 1.0 (0.9-1.1); Prothrombin Time 10.9 Seconds (9.0-12.0)
[2025-07-29] MEDS: PANTOprazole 40 MG/10 ML SYR IV SCH (08:36)
[2025-07-29] MEDS: THIAMINE HCL 100 MG in SYRINGE 9 ML IV SCH (08:37)
[2025-07-29] MEDS: FOLIC ACID 1 MG in SYRINGE 9.8 ML IV SCH (08:37)
[2025-07-29] MEDS ORDERED: LORazepam Inj 2 MG in SYRINGE 1 ML IV PRN (09:32)
--- NOTE | 2025-07-29 10:56 | Electrocardiogram Report ---
Test Reason : Blood Pressure : */* mmHG Vent. Rate : 80 BPM Atrial Rate : 80 BPM P-R Int : 128 ms QRS Dur : 90 ms QT Int : 388 ms P-R-T Axes : 89 81 65 degrees QTcB Int : 447 ms Normal sinus rhythm Normal ECG When compared with ECG of 29-Apr-2025 01:27, No significant change was found Confirmed by Santos Chinchilla ([id number]) on 07/29/2025 10:56:25 AM Referred By: REFERRED SELF Confirmed By: Santos Chinchilla
--- NOTE | 2025-07-29 12:18 | Electroencephalogram ---
EEG Procedure Note Date of Service July 29, 2025 Start / End Times Start Time: 6:07 AM End Time: 6:[address] Thomason History History of seizure disorder, left mesial temporal sclerosis, recent seizure event Home Medication List Medication Instructions Recorded Confirmed Type folic acid 1 mg tablet 1 mg PO QAM #90 tabs 08/26/24 07/29/25 Rx thiamine HCl (vitamin B1) 100 mg 100 mg PO QAM #30 tabs 11/12/24 07/29/25 Rx tablet duloxetine 60 mg capsule,delayed 60 mg PO DAILY #90 caps 03/16/25 07/29/25 Rx release levothyroxine 25 mcg tablet 25 mcg PO DAILYBB #90 tabs 03/25/25 07/29/25 Rx (Synthroid) cholecalciferol (vitamin D3) 25 25 mcg PO DAILY #30 caps 03/27/25 07/29/25 Rx mcg (1,000 unit) capsule cyanocobalamin (vitamin B-12) 1,000 mcg PO Q OTHER DAY 04/29/25 07/29/25 History 1,000 mcg tablet (Vitamin B-12) pantoprazole 40 mg tablet,delayed 40 mg PO BID 04/29/25 07/29/25 History release acetaminophen 500 mg tablet 1,000 mg (2 x 500 mg) PO Q8H PRN 05/01/25 07/29/25 Rx (Tylenol Extra Strength) pain #30 tabs atorvastatin 20 mg tablet 20 mg PO QPM #90 tabs 05/04/25 07/29/25 Rx lamotrigine 200 mg tablet 200 mg PO BID #60 tabs 06/15/25 07/29/25 Rx ffmeof-ockmxeek-mxgwfem(pork)10,500-35,500-61,500 2 cap PO AC 30 days #90 caps 06/23/25 07/29/25 Rx unit capsule,del rel (Pancreaze) coenzyme Q10 100 mg capsule (Co 100 mg PO DAILY 07/29/25 07/29/25 History Q-10) ipratropium 20 mcg-albuterol 100 1 puff inhalation QID PRN 07/29/25 07/29/25 History mcg/actuation mist for inhalation Shortness Of Breath (Combivent Respimat) magnesium oxide 400 mg PO DAILY 07/29/25 07/29/25 History zobpwehy-wwr-vgrqy 150 mcg-vit K1 1 tab PO DAILY 07/29/25 07/29/25 History 30 mcg-lycop 300 mcg-lutein tablet (Centrum Minis Men 50 Plus) polyethylene glycol 3350 17 gram 17 g PO DAILY PRN Constipation 07/29/25 07/29/25 History oral powder packet (Miralax) trazodone 50 mg tablet 50 mg PO HS 07/29/25 07/29/25 History Inpatient Medication List Pantoprazole Sodium (Protonix) 40 mg in 10 mls @ 5 mls/min IV QAM [facility] Stop: 08/28/25 08:59 Last Admin: 07/29/25 08:36 Dose: 5 mls/min Documented By: juana Thiamine HCl 100 mg/ Syringe 10 mls @ 2 mls[facility] [place] Stop: 08/28/25 08:59 Last Admin: 07/29/25 08:37 Dose: 2 mls/min Documented By: juana Folic Acid 1 mg/ Syringe 10 mls @ 5 mls/[facility] [place] Stop: 08/28/25 08:59 Last Admin: 07/29/25 08:37 Dose: 5 mls/min Documented By: juana Levetiracetam (Levetiracetam 500 Mg/5 Ml Vial) 500 mg IV Q12H [facility] Stop: 08/28/25 08:59 Last Admin: 07/29/25 08:37 Dose: 500 mg Documented By: juana Discontinued Medications Sodium Chloride (Nss) 500 mls @ 999 mls/hr IV .Q31M [facility]KS[facility] Stop: 07/28/25 20:30 Last Infusion: 07/28/25 21:55 Dose: Infused Documented By: Admin: 07/28/25 20:13 Dose: 999 mls/hr Documented By: JORGE Thiamine HCl 200 mg/ Sodium (Chloride) 52 mls @ 210 mls/hr IV NOW STA Stop: 07/28/25 22:32 Last Infusion: 07/29/25 00:14 Dose: Infused Documented By: Admin: 07/28/25 22:45 Dose: 210 mls/hr Documented By: JORGE Ioversol (Optiray 320 125ml) 118 ml IV ONCE ONE Stop: 07/28/25 20:30 Last Admin: 07/28/25 20:30 Dose: 118 ml Documented By: UZIEL Levetiracetam (Levetiracetam 500 Mg/5 Ml Vial) 2,500 mg IV NOW STA Stop: 07/28/25 19:52 Last Admin: 07/28/25 21:49 Dose: Not Given Documented By: Admin: 07/28/25 20:02 Dose: 2,500 mg Documented By: JORGE Lorazepam (Lorazepam 1 Mg/1 Ml Syr Ed Inj Use) 1 mg IV ONE STA Stop: 07/28/25 19:52 Last Admin: 07/28/25 19:57 Dose: 1 mg Documented By: JORGE Description This is a 21 electrode EEG with a single channel dedicated to limited EKG. The electrodes were placed in accordance with the International 10-20 system. There is a posterior dominant rhythm of 10 Hz which is symmetrically distributed and attenuates with eye opening. There is a normal anterior to posterior organization. Photic stimulation is unremarkable. Hyperventilation is not performed. There is fairly continuous left temporal sharply contoured theta slowing and rare left temporal sharp and slow waves Interpretation Abnormal awake/drowsy EEG with left temporal slowing and rare left temporal sharps. Results are consistent with patient's history of epilepsy and left mesial temporal sclerosis. No evidence of ongoing seizure activity. [facility] EEG Procedure Codes Indication for Procedure (1) Seizure: (2) Seizure disorder: Neurology Neurology: 93202 EEG include record awake & drowsy
[2025-07-29] MEDS ORDERED: ACETAMINOPHEN 500 MG TAB PO PRN ×2 (13:23→13:36)
[2025-07-29] MEDS ORDERED: IPRATROPIUM BROMIDE/ALBUTEROL respimat INH INH PRN (13:23)
[2025-07-29] MEDS ORDERED: POLYETHYLENE (MIRALAX) 17 GM PACK PO PRN (13:23)
--- NOTE | 2025-07-29 13:24 | History & Physical Bridge Note ---
Date of Service July 29, 2025 History & Physical Bridge Note I have examined the patient, reviewed the History & Physical and in the interval since the performance of the History & Physical I have noted the following changes of clinical significance: Patient reports ongoing epigastric abdominal pain from his chronic pancreatitis. His lipase was a bit elevated on admission. He has not been eating much over the last couple of months. Unfortunately, their car broke down on the day he was to have his EUS/ERCP for his pancreatic pseudocyst and he did not make the appointment. It is now rescheduled for October. He has been following a low-fat diet. He does report he had an episode of vomiting yesterday morning, nonbloody. He has not skipped any doses of Lamictal, but wonder if he did not absorb the dose around the time of vomiting. His life partner is at the bedside and describes a tonic-clonic generalized seizure, but reports that he also has what sounds like absence seizure's at least once a week. Vitals reviewed Gen: AAOx3, NAD, thin HEENT: Anicteric sclerae, EOMI CV: RRR no mgr nl S1S2 Pulm: CTAB no wcr Abd: +BS soft positive TTP in epigastric region without guarding or rebound, ND no masses or hernias Ext: No edema Skin: No rashes, warm/dry Neuro: Full strength throughout The patient is a 65-year-old male with past medical history including recurrent chronic pancreatitis, seizure disorder, anxiety, GERD, esophagitis, folate deficiency, esophageal dysphagia, vertebral artery stenosis, and pulmonary nodule, #Seizure disorder-with breakthrough seizures here. EEG abnormal consistent with left mesial temporal sclerosis. Follows with neurology and is on Lamictal - Holding home Lamictal - Continue Keppra 500 mg IV every 12 for now - Await neurology consultation # Acute on chronic pancreatitis-with a h/o splenic vein thrombosis/pseudocyst- etiology due to chronic damage to pancreatic duct. No longer drinks EtOH, TG and calcium normal, no divisum on previous MRCP, no gallstones. Unfortunately missed his ERCP/EUS scheduled for 06/27 with Nathanael-rescheduled for October. With ongoing smoldering pancreatitis since then - Advance diet to low-fat - Give 2 L of LR IV fluids - Order IV morphine as needed for severe pain - Restart home oral medications #Severe LICA stenosis-has been seen in the past by vascular surgery for his vertebral artery stenosis but unknown previously about carotid stenosis. CT angiogram of the head and neck was performed on arrival in the ED due to seizure activity. Found to have long segment 90-95% stenosis of the LICA. No known history of stroke but does have left mesial temporal sclerosis. Is a current smoker and recently started on atorvastatin. - Start aspirin 81 mg p.o. once daily - Continue atorvastatin-resume from home - Consult vascular surgery for further evaluation to see if needs carotid endarterectomy #History of alcohol abuse-he has not drank any alcohol in approximately 1 year -Resume p.o. folic acid 1 mg p.o. daily and thiamine 100mg p.o. daily, DC IV #Tobacco abuse/COPD -Can give nicotine patch if needed - Combivent as needed - Encourage cessation #Complex renal cyst-Noted on CT A/P previously on right kidney-has been present since 2019 but slightly increased in size -refer to Urology as outpt-defer to PCP #Hypothyroidism-TSH here normal at 4.0 -continue home LT4 dose #GERD-no acute issues - Continue po PPI and convert IV to p.o. now that he is tolerating p.o. #B12 deficiency- -resume home B12 DVT prophylaxis- Lovenox SQ added Disposition-continued stay, possible discharge to home on 07/30 after seen by neurology and if pain is controlled with pancreatitis
[2025-07-29] MEDS ORDERED: Ipratropium HFA Inhaler (Combivent Respimat P&T Subs) INH PRN (13:38)
[2025-07-29] MEDS ORDERED: Albuterol HFA 8 GM Inhaler (Combivent Respimat P&T Subs) INH PRN (13:38)
[2025-07-29] MEDS: LACTATED RINGER'S 1,000 ML IV SCH (13:49)
[2025-07-29] MEDS: MoRPHine SULFATE 2 MG/ML CARP IV PRN (13:49)
[2025-07-29] MEDS: ASPIRIN 81 MG ECTAB PO SCH (13:49)
[2025-07-29] MEDS: ONDANSETRON INJ 2 MG/ML 2 ML VIAL IV PRN (13:49)
--- NOTE | 2025-07-29 13:55 | Neurology Consultation ---
Date of Consultation July 29, 2025 Assessment & Plan (1) Temporal lobe epilepsy: (2) Mesial temporal sclerosis: (3) Stenosis of right carotid artery: Plan 65-year-old male with a known history of temporal lobe epilepsy, left mesial temporal sclerosis, compliant with lamotrigine, presenting with a witnessed generalized tonic-clonic seizure, slow return to baseline although seems to be back at his baseline currently. He is slightly lethargic and inattentive, but otherwise has a nonfocal or intact neurological examination. An up-to-date EEG was completed this morning which indicates left temporal slowing and rare left temporal sharps consistent with his diagnosis of temporal lobe epilepsy, no ongoing or active seizures. CT angiography of the head and neck revealed a severe stenosis of the right internal carotid artery. Would recommend increasing his dosage of lamotrigine to 250 mg twice daily. Would check a repeat trough level in 1 week. Continue with Keppra 500 mg twice daily as well, may transition to p.o. when medically appropriate. Would recommend a brain MRI to assess for possible acute stroke in light of the severe right carotid stenosis observed on CT angiography. If his MRI indicates an acute stroke, would consult vascular surgery for consideration of surgical treatment of his carotid stenosis. Further, if his MRI indicates an acute stroke, would recommend a transthoracic echocardiogram with bubble study. He had an echocardiogram in 2021 without a bubble study. I also agree with aspirin 81 mg/day given the severe stenosis. Continue with atorvastatin as ordered, recent LDL was 59 which is appropriate. Above recommendations discussed with Dr. Coker. Have patient follow-up with me in neurology clinic in 2 to 3 weeks after discharge. Please call with any questions. History of Present Illness Reason for Consultation: Seizure Requesting Physician: Paddy Attending Physician: Amada Coker MD History of Present Illness The patient is a 65-year-old male who is known to me, I last saw him in neurology clinic June 16, 2025, history notable for temporal lobe epilepsy, left mesial temporal sclerosis, have been doing reasonably well with lamotrigine 200 mg twice daily although did report experiencing occasional aura, feeling as if something is coming over him. I had recommended ambulatory EEG monitoring for further assessment. This testing has not been completed yet. He presented to the emergency department last night after a witnessed generalized tonic- clonic seizure without return to baseline. He has been compliant with his lamotrigine. His mental status seems to be much improved at this time, he is relatively amnestic for his recent seizure event, however. He does reiterate that he has been taking his lamotrigine as prescribed. He does report that he has not been sleeping very well lately and has not been eating or drinking very well either. He denies any recent illness or injury. He denies any recent alcohol consumption. A CT of the head was negative for acute process. CT angiography of the head and neck indicated a severe right internal carotid artery stenosis with soft plaque. He takes atorvastatin 20 mg as an outpatient. Does not appear to be on any blood thinners. Notably, a CT angiogram of the neck completed in 2019 revealed no significant carotid stenosis. An electrocardiogram completed yesterday indicated a normal sinus rhythm, 80 bpm. I note that during his emergency department encounter, he was noted to have some right sided rigidity, he was obtunded at that time. Allergies Allergy/AdvReac Type Severity Reaction Status Date / Time hydromorphone Allergy Mild Itching Verified 06/23/25 16:17 sertraline Allergy Mild Abdominal Verified 06/23/25 16:17 Pain Home Medications Medication Instructions Recorded Confirmed Type folic acid 1 mg tablet 1 mg PO QAM #90 tabs 08/26/24 07/29/25 Rx thiamine HCl (vitamin B1) 100 mg 100 mg PO QAM #30 tabs 11/12/24 07/29/25 Rx tablet duloxetine 60 mg capsule,delayed 60 mg PO DAILY #90 caps 03/16/25 07/29/25 Rx release levothyroxine 25 mcg tablet 25 mcg PO DAILYBB #90 tabs 03/25/25 07/29/25 Rx (Synthroid) cholecalciferol (vitamin D3) 25 25 mcg PO DAILY #30 caps 03/27/25 07/29/25 Rx mcg (1,000 unit) capsule cyanocobalamin (vitamin B-12) 1,000 mcg PO Q OTHER DAY 04/29/25 07/29/25 History 1,000 mcg tablet (Vitamin B-12) pantoprazole 40 mg tablet,delayed 40 mg PO BID 04/29/25 07/29/25 History release acetaminophen 500 mg tablet 1,000 mg (2 x 500 mg) PO Q8H PRN 05/01/25 07/29/25 Rx (Tylenol Extra Strength) pain #30 tabs atorvastatin 20 mg tablet 20 mg PO QPM #90 tabs 05/04/25 07/29/25 Rx lamotrigine 200 mg tablet 200 mg PO BID #60 tabs 06/15/25 07/29/25 Rx eebpqn-wzxrtfhy-dqyqxte(pork)10,500-35,500-61,500 2 cap PO AC 30 days #90 caps 06/23/25 07/29/25 Rx unit capsule,del rel (Pancreaze) coenzyme Q10 100 mg capsule (Co 100 mg PO DAILY 07/29/25 07/29/25 History Q-10) ipratropium 20 mcg-albuterol 100 1 puff inhalation QID PRN 07/29/25 07/29/25 History mcg/actuation mist for inhalation Shortness Of Breath (Combivent Respimat) magnesium oxide 400 mg PO DAILY 07/29/25 07/29/25 History ppnmlgau-ozo-dwvnp 150 mcg-vit K1 1 tab PO DAILY 07/29/25 07/29/25 History 30 mcg-lycop 300 mcg-lutein tablet (Centrum Minis Men 50 Plus) polyethylene glycol 3350 17 gram 17 g PO DAILY PRN Constipation 07/29/25 07/29/25 History oral powder packet (Miralax) trazodone 50 mg tablet 50 mg PO HS 07/29/25 07/29/25 History Patient History Medical History Unintentional weight loss Pancreatitis History of alcohol abuse PAD (peripheral artery disease) COPD (chronic obstructive pulmonary disease) Intermittent claudication Chronic cholecystitis Alcoholism in recovery Tobacco use disorder Alcohol abuse Hypothyroidism Hypertension Calculus of pancreatic duct Pancreatic duct obstruction Hx of pleural effusion Marijuana use Hx of aspiration pneumonitis Poor historian Hx of seizure disorder Degenerative disc disease History of pancreatitis (~02/2020) Thrombocytopenia Depression Macrocytic anemia Surgical History History of esophagogastroduodenoscopy (EGD) S/P epidural steroid injection History of colonoscopy Status post tooth extraction Hx of neck surgery (05/2018) Family History Aunt Parkinson disease Cerebral aneurysm Mother Cerebral aneurysm Depression Anemia Uncle Cerebral aneurysm Other No family history of adverse response to anesthesia Denies family history of Ovarian cancer Prostate cancer Myocardial infarction Breast cancer Lung cancer Colorectal cancer Social History Smoking Status: Current every day smoker Tobacco Type: Cigarettes Age Started Using Tobacco: 17; packs per day: 1; Cigarettes Per Day: 1 pack per day; Second Hand Exposure: No; Do You Dip or Chew Tobacco: No; Tobacco Cessation Education Requested by Patient: No Hx Alcohol Use: Yes Alcohol type: hard liquor Alcohol Intake Frequency Comment: fifth of vodka per week Hx Substance Use: Yes Prescribed Medications: Marijuana Last Used Substance: Days (ago) Last Used Substance Other:: 04/16/25 Substance Use Type Other:: Daily Preferred Language: Turkish Communication Ability: Effective Visual Impairment: No Limitations Hearing Ability: Normal Family Preservation Worker Required: No Beliefs That Will Affect Care: None marital status: Single Current Living Situation: Spouse Current Living Situation Comment: fiance current occupational status: disabled Other Information That Helps Us Care for You: No Feels Safe at Home: Yes Safety Concerns: Feels Safe At This Time Childhood Exposure to Second-Hand Smoke: Yes Diet: regular Diet Comment: regular caffeine: No during the past year weight has: remained stable Dental Care, Regularly: No Physical Activity Frequency: Does not Exercise Seatbelt Use: always Sunscreen Use: No Assistive Devices: Cane and Walker Review of Systems Constitutional: no fever Eyes: no blind spots and no diplopia Ear, Nose, Mouth, Throat: no hearing loss Respiratory: no dyspnea Cardiovascular: no chest pain and no palpitations Gastrointestinal: no nausea and no vomiting Genitourinary: no dysuria Musculoskeletal: no myalgia Integumentary: no rash Neurologic: as per Subjective / HPI Psychiatric: no depression and no anxiety Hematologic / Lymphatic: no easy bleeding and no easy bruising Exam (Neuro) Constitutional: well developed and well nourished; no acute distress Eyes: normal visual garcia by confrontation, PERRL, normal accommodation and EOM intact bilaterally; no nystagmus Neurologic: Oriented to:: Person, Place and Time Memory: Short Term Intact and Remote Intact Attention: Concentration Intact; negative Span Intact (Mildly inattentive) Language: Naming Objects and Repeating Phrases Speech Fluency: negative Dysarthria Speech Aphasia: negative Aphasia Fund of Knowledge: Current Events, Past History and Vocabulary Cranial Nerves: Normal II (Visual garcia full to confrontation, visual acuity normal), III, IV, (Pupils equal round reactive to light and accommodation, eye movements normal), V (Facial sensation intact), VII (There is no facial droop or weakness), VIII (Hearing intact), IX, X (Palate elevates to midline), XI (Shoulder shrug intact) and XII (Tongue protrudes to midline) Motor Strength: Normal Lower Extremities and Normal Upper Extremities; negative Pronator Drift Motor Tone: Normal Lower Extremities and Normal Upper Extremities Muscle Bulk/Involuntary Movements: No Involuntary Movements; negative Muscle Atrophy Sensation: Light Touch Intact, Pain/Temperature Intact, Vibration Intact and Proprioception Intact Coordination: Normal; negative Limited Balance, Dysdiadochokinesia, Finger-Nose Abnormal or Heel-Petersen Abnormal Deep Tendon Reflexes: Rt Triceps: 2+, Lt Triceps: 2+, Rt Biceps: 2+, Lt Biceps: 2+, Rt Brachioradialis: 2+, Lt Brachioradialis: 2+, Rt Patellar: 2+, Lt Patellar: 2+, Rt Ankle: 2+ and Lt Ankle: 2+ Special Tests: negative Babinski Present Results & Data Vital Signs (Past 12 Hours) Vital Signs Temp Pulse Pulse Resp BP BP Pulse Ox 07/29/25 09:47 36.7 C 81 17 129/74 93 07/29/25 07:16 84 20 137/80 94 07/29/25 07:16 68 07/29/25 06:30 72 16 142/77 H 93 07/29/25 06:00 82 19 133/82 97 07/29/25 05:30 78 17 152/98 H 95 07/29/25 05:00 81 14 139/76 95 07/29/25 04:49 134/86 07/29/25 04:48 69 18 96 07/29/25 04:00 66 15 97 07/29/25 03:30 78 17 120/96 97 07/29/25 03:00 82 17 127/101 H 96 07/29/25 02:30 80 17 151/93 H 95 07/29/25 02:00 77 18 111/74 95 O2 Del Method 07/29/25 09:47 Room Air 07/29/25 07:16 Room Air 07/29/25 07:16 07/29/25 06:30 Room Air 07/29/25 06:00 Room Air 07/29/25 05:30 Room Air 07/29/25 05:00 Room Air 07/29/25 04:49 07/29/25 04:48 Room Air 07/29/25 04:00 Room Air 07/29/25 03:30 Room Air 07/29/25 03:00 Room Air 07/29/25 02:30 Room Air 07/29/25 02:00 Room Air Laboratory Results WBC 11.97, hemoglobin 13.1, hematocrit 37.7, platelet count 327, sodium 139, potassium 4.0, BUN 9, creatinine 0.60, glucose 94, calcium 9, magnesium 2.0, lamotrigine level from June 25, 2025 was 11.0 Coding Level of Care Code 74846 INT INP/OBS CARE 3/75MIN Diagnoses Temporal lobe epilepsy G40.109 Mesial temporal sclerosis G93.81 Stenosis of right carotid artery I65.21 Time Spent (min) 90 Comment Total time includes patient contact, chart review, counseling, note preparation
--- NOTE | 2025-07-29 15:43 | Magnetic Resonance Report ---
MRI OF THE BRAIN WITHOUT IV CONTRAST CLINICAL HISTORY: Strokelike symptoms. COMPARISON STUDY: CT of the brain dated 07/28/2025 TECHNIQUE: MRI of the brain was performed utilizing various T1 and T2-weighted sequences in the axial , sagittal, and coronal planes. IV contrast was not administered for this examination. The examinatio n is degraded by motion artifact. FINDINGS: Brain parenchyma: There is age related involutional change noting minimal microangiopathic disease. T here is no hemorrhage or mass effect. There is no restricted diffusion to suggest acute ischemia. Gra y-white matter differentiation is preserved. No extra-axial fluid collection is seen. The cerebellar tonsils are normal in configuration. Ventricles, sulci, and cisterns: Prominent secondary to positional change. Pituitary and sella: Unremarkable. Intracranial vasculature: Normal flow voids are maintained at the skull base. Orbits: The bony orbits are grossly intact. Orbital contents are normal in appearance. Sinuses and mastoids: There is tzmy-vv-nbvjbdtg mucosal thickening within the sphenoid and ethmoid si nuses. The mastoid air cells are clear. Calvarium: Unremarkable. Cervical cord: Partially visualized cervical spinal cord is normal in morphology and signal intensity . IMPRESSION: No acute intracranial abnormality is identified. ACT 112: Negative or not required by law. Electronically signed by: Almas Shaffer M.D. 07/29/2025 3:42 PM
[2025-07-29] MEDS: lamoTRIgine 100 MG TAB PO SCH (15:54)
[2025-07-29] MEDS: CYANOCOBALAMIN (B-12) 500 MCG TABLET PO SCH (15:55)
[2025-07-29] MEDS: ENOXAPARIN INJ 40 MG/0.4 ML SYR SQ SCH (15:56)
[2025-07-29] MEDS: PANCREAZE (LIPASE 10,500U) CAP PO SCH (17:15)
[2025-07-29] MEDS: ATORVASTATIN 20 MG TAB PO SCH (21:03)
[2025-07-30] MEDS ORDERED: lamoTRIgine 100 MG TAB PO SCH
[2025-07-30] MEDS: LEVOTHYROXINE SODIUM 25 MCG TABLET PO SCH (06:06)
[2025-07-30 06:49] LABS: Hematocrit (blood only) 35.9 % (42.0-52.0); Hemoglobin 11.9 g/dL (14.0-18.0); Immature Granulocytes # (auto) 0.02 K/uL (0.01-0.20); Immature Granulocytes % (auto) 0.3 %; Mean Corpuscular Hemoglobin 30.6 pg (25.0-34.0); Mean Corpuscular Volume 92.3 fL (80.0-100.0); Platelet Count 243 K/uL (130-400); RDW Standard Deviation 54.0 fL (36.4-46.3); Red Blood Count 3.89 M/uL (4.70-6.10); White Blood Count 7.98 K/ul (4.8-10.8)
[2025-07-30 07:31] LABS: Alanine Aminotransferase 9.0 U/L (7-52); Albumin Globulin Ratio 1.2 (0.9-2); Albumin Level 3.2 gm/dl (3.4-5.0); Alkaline Phosphatase 86.0 U/L (34-104); Anion Gap 7.0 (3-11); Bilirubin,Total 0.7 mg/dl (0.2-1.0); Blood Urea Nitrogen 10.0 mg/dl (6-23); Calcium 8.7 mg/dl (8.6-10.3); Carbon Dioxide 28.0 mmol/L (21-32); Chloride 103.0 mmol/L (98-107); Creatinine Clr Calc Pharmacy 110.9 ml/min; Globulin 2.7 gm/dl (2.5-4.0); Glucose 61.0 mg/dl (70-99(Fasting)); Lipase 44.0 U/L (11-82); Magnesium 1.7 mg/dl (1.7-2.4); Potassium 3.9 mmol/L (3.5-5.1); Sodium 138.0 mmol/L (136-145); Total Protein 5.9 gm/dl (6.0-8.3)
[2025-07-30] MEDS: FOLIC ACID 1 MG TAB PO SCH (08:11)
[2025-07-30] MEDS: MAGNESIUM OXIDE 400 MG TAB PO SCH (08:11)
[2025-07-30] MEDS: THIAMINE HCL 100 MG TAB PO SCH (08:12)
[2025-07-30] MEDS ORDERED: NON-FORMULARY MEDICATION (Coenzyme Q10 [Co Q-10] 100 mg Capsule) PO SCH (09:00)
[2025-07-30] MEDS ORDERED: Nursing to Pharmacy Communication SCH ×2 (10:30)
--- NOTE | 2025-07-30 10:35 | Discharge Summary ---
Discharge Summary Date of Service July 30, 2025 Principal Dx & Hospital Course #1 = Principal Diagnosis (1) Seizure: (2) Mesial temporal sclerosis: (3) Stenosis of right carotid artery: (4) More than 50 percent stenosis of left internal carotid artery: Plan The patient is a 65-year-old male with past medical history including recurrent chronic pancreatitis with pseudocyst, seizure disorder, mesial temporal sclerosis, anxiety, GERD, esophagitis, folate deficiency, esophageal dysphagia, vertebral artery stenosis, and pulmonary nodule who was admitted after having a seizure at home that was tonic-clonic mostly involving the right side of his body. #Seizure disorder-admitted with breakthrough seizure. He has been having absence seizures at home at least once a week as per his girlfriend. EEG abnormal consistent with left mesial temporal sclerosis/seizure disorder. Follows with neurology and is on Lamictal-has been compliant with this at 200 mg p.o. twice daily. He is no longer drinking any alcohol for over a year. He was started on IV Keppra here and seen by neurology. MRI of the brain was negative for stroke. He had no further seizure activity after admission. No evidence of infection or electrolyte abnormalities. - Increase home Lamictal to 250 mg p.o. twice daily - Check trough lamotrigine level in 1 week-ordered in [facility] system with results to go to Dr. Che - Started Keppra 500 mg p.o. 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 No longer drinks EtOH, TG and calcium normal, no divisum on previous MRCP, no gallstones. Unfortunately missed his ERCP/EUS scheduled for 06/27 with Nathanael-rescheduled for October. With ongoing smoldering pancreatitis since then, mildly elevated lipase and upper abdominal pain on admission, now improved. Took a few doses of IV morphine, tolerating low-fat diet. Received 2 L of LR -Continue low-fat on discharge -Will give small supply of oxycodone to take as needed at home for moderate- severe pain - Keep follow-up appointment for EUS/ERCP for pseudocyst with GI in 10/2025 #Severe MIRANDA stenosis/moderate L ICA 50% stenosis-has been seen in the past by vascular surgery for his vertebral artery stenosis but unknown previously about carotid stenosis. CT angiogram of the head and neck was performed on arrival in the ED due to seizure activity. Found to have long segment 90-95% stenosis of the MIRANDA (the radiology report terminology says left, but it is actually in the right ICA). With moderate stenosis of the left ICA. No known history of stroke but does have left mesial temporal sclerosis. Is a current smoker and recently started on atorvastatin. MRI of the brain negative for stroke. - Start aspirin 81 mg p.o. once daily - Continue atorvastatin which was recently started - Counseled on smoking cessation -Referred to vascular surgery for further evaluation as an outpatient to see if needs right carotid endarterectomy although would be considered asymptomatic at this point #History of alcohol abuse-he has not drank any alcohol in approximately 1 year -Continue p.o. folic acid 1 mg p.o. daily, thiamine 100mg p.o. daily, and multivitamin #Tobacco abuse/COPD - Combivent as needed - Encourage smoking cessation #Complex renal cyst-Noted on CT A/P previously on right kidney-has been present since 2019 but slightly increased in size -refer to Urology as outpt-defer to PCP #Hypothyroidism-TSH here normal at 4.0 -continue home LT4 dose #GERD-no acute issues - Continue po PPI #B12 deficiency- -continue home B12 DVT prophylaxis- Lovenox SQ Disposition-stable for discharge to home Notes For Next Care Provider Checking lamotrigine level in 1 week-lab slip given Follow-up with neurology in 2 to 3 weeks Keep follow-up appointment with GI for chronic/recurrent pancreatitis Medication Changes From Visit See medication list Admission HPI Per Admitting Provider The patient is a 65-year-old male with a past medical history including seizure disorder, history of acute on chronic pancreatitis, pancreatic pseudocyst, prediabetes, GERD without esophagitis, mesial temporal sclerosis, anxiety, tobacco dependence, esophageal dysphagia, and vertebral artery stenosis. The patient was brought to the emergency department due to concern regarding a seizure episode that began around 6 PM as witnessed by his significant other, who called 911. She noted that he had tonic-clonic activity primarily involved his right side, and was then confused. The patient did receive Versed IM prior to arrival. Upon arrival to the emergency department, he continued to be confused, was not able to answer questions, but his supplied information regarding HPI and ROS. The patient was evaluated as a stroke alert in the emergency department. CT scan of the head and CTA of the head were both negative. CTA of neck showed a long segment of severe stenosis in the LICA, that may be due to a high risk of soft plaque. The patient had had a brain MRI on 07/12/2025, and telestroke neurology consult felt that there was an area on the MRI that was responsible for his partial seizure activity. They did relate that the stenosis of the LICA would need to be addressed. From the emergency department the patient received the following: Normal saline 500 mL bolus, lo razepam 1 mg IV, Keppra 2500 mg IV, and thiamine 200 mg IV. His most recent hospitalizations were all for acute on chronic pancreatitis on the following dates: 04/17-04/22/2025, 04/29-05/02/2025, and 05/31-06/03/2025. His significant other reports that he has continued to refrain from alcohol use. Discharge Exam Constitutional WD/WN, vitals as above Eyes PERRL, conjunctivae normal, anicteric sclerae ENMT external ear and nose normal, oropharynx normal Neck trachea midline, no thyromegaly Respiratory normal respiratory effort, lungs clear to auscultation Cardiovascular RRR, no murmur, no edema Chest (Breasts) Chest: normal inspection of chest Gastrointestinal (Abdomen) normal bowel sounds, soft, nontender, no hepatosplenomegaly Musculoskeletal Extremities: extremities normal to inspection; no cyanosis and no clubbing Skin no rashes, warm and dry Neurologic moves all extremities and awake; no focal motor deficits Psychiatric A+Ox3, euthymic affect Lymphatic no lymphedema Discharge Plan Discharge Items Patient Disposition: Home - Self-Care Reason For Visit: SEIZURE, POST-ICTAL STATE Discharge Diagnosis: Seizure Acute on chronic recurrent pancreatitis Condition on Discharge: Good Activity: Resume your previous activity Driving/Machine Use: No driving Non-emergency contact: Primary Care Provider Call non-emergency contact if: you have any medication questions, your symptoms worsen, your pain is not controlled, your pain is worsening and your pain is unusual for you Follow-up/Referrals: Jeff Grimaldo CRNP [Primary Care Provider] - 08/12/25 8:20 am (Follow- up within 1-2 weeks) Colin Che MD [Physician] - (Follow-up within 2-3 weeks) Man Villagomez MD [Physician] - (Please follow-up within 1 month for your carotid artery stenosis-call for an appointment) Diet: Low Fat Ambulatory Orders: Lamictal(Lamotrigine) (Routine) Timeframe: 1 Week Location: None Selected Ordered By: Amada Bess Attending Provider Instructions: You were admitted after having a seizure. You were seen by the neurologist and had a brain MRI which was normal-you did not have a stroke. The neurologist recommends increasing your lamotrigine to 250 mg by mouth twice a day, and adding on a second antiseizure drug called Keppra (levetiracetam) 500 mg by mouth twice a day. You will need to have the blood levels checked of your lamotrigine in 1 week-this has been ordered for you-please go to the lab first thing in the morning and get the blood drawn before you take your morning medications to get the correct level. Follow-up with the neurologist within 2 to 3 weeks-call for an appointment. You were found to have a severe blockage of your right carotid artery. You were started on aspirin to help prevent stroke that can happen as a result of this blockage. Please follow-up with the vascular surgeon, Dr. Villagomez, within 1 month for further evaluation to see if you need to have surgery to unclog your artery. It is very important that you work on quitting smoking to help prevent this from clogging up further. For your pancreatitis, you had a mild flare in the hospital. Please continue on a low-fat diet and keep your follow-up appointment with the GI doctor. You can take oxycodone as needed for moderate to severe pain but try to take this sparingly. It was a pleasure taking care of you! If you have any questions about your care before your hospital follow-up visit with your primary care provider, please call [phone] and ask to be transferred to the [facility] Medicine office. Sincerely, Amada Coker M.D. Pending Studies at Discharge: No Stand-Alone Forms: My [facility], Pain - Opioid Pain Management, Smoking Cessation Medications and DC Order Prescriptions: New lamotrigine 100 mg tablet 50 mg PO BID Qty: 30 0RF Rx Instructions: To be taken in addition to the 200 mg tab for a total of 250 mg levetiracetam [Keppra] 500 mg Tablet 500 mg PO BID Qty: 60 0RF oxycodone 5 mg tablet 5 mg PO Q8H PRN (Reason: pain, moderate) Qty: 20 0RF lamotrigine 100 mg tablet 50 mg PO BID Qty: 30 0RF Rx Instructions: To be taken in addition to the 200 mg tab for a total of 250 mg aspirin 81 mg Tablet,Delayed Release (Dr/Ec) 81 mg PO QAM Qty: 90 0RF Continued folic acid 1 mg tablet 1 mg PO QAM Qty: 90 2RF thiamine HCl (vitamin B1) 100 mg tablet 100 mg PO QAM Qty: 30 4RF levothyroxine [Synthroid] 25 mcg tablet 25 mcg PO DAILYBB Qty: 90 1RF cholecalciferol (vitamin D3) 25 mcg (1,000 unit) capsule 25 mcg PO DAILY Qty: 30 0RF Patient Comments: 04/17- otc unable to verify atorvastatin 20 mg tablet 20 mg PO QPM Qty: 90 2RF Rx Instructions: Take with Co Q10 100 mg - [id number] lamotrigine 200 mg tablet 200 mg PO BID Qty: 60 5RF duloxetine 60 mg capsule,delayed release(DR/EC) 60 mg PO DAILY Qty: 90 2RF Pancreaze 10,500-35,500- 61,500 unit capsule,delayed release(DR/EC) 2 cap PO AC 30 Days Qty: 90 2RF Rx Instructions: administer with meals coenzyme Q10 [Co Q-10] 100 mg Capsule 100 mg PO DAILY magnesium oxide 400 mg magnesium Tablet 400 mg PO DAILY Centrum Minis Men 50 Plus [phone] mcg Tablet 1 tab PO DAILY trazodone 50 mg tablet 50 mg PO HS polyethylene glycol 3350 [Miralax] 17 gram powder in packet 17 g PO DAILY PRN (Reason: Constipation) Combivent Respimat 20-100 mcg/actuation mist 1 puff inhalation QID PRN (Reason: Shortness Of Breath) cyanocobalamin (vitamin B-12) [Vitamin B-12] 1,000 mcg tablet 1,000 mcg PO Q OTHER DAY pantoprazole 40 mg tablet,delayed release (DR/EC) 40 mg PO BID acetaminophen [Tylenol Extra Strength] 500 mg Tablet 1,000 mg PO Q8H PRN (Reason: pain) Qty: 30 0RF Rx Instructions: [id number] Discharge Orders: Discharge Order (Routine); Ordered 07/30/25 Ordered By: Amada Coker Admission Data Admit Date/Time: 07/29/25 00:12 Attending Provider: Amada Coker Admit Provider: Freddy Thomason Primary Care Provider: Jeff Grimaldo Other Providers: Freddy Thomason; Waylon Hope Hospital Stay Data Consultations 07/28/25 22:15 ED Decision to Admit Stat 07/29/25 04:37 Consult Neurology Routine Diagnostic Imagining Performed 07/28/25 19:51 CT angio head w con Stat CT angio neck with con Stat CT head/brain wo con Stat 07/29/25 14:07 MR brain seizure wo con Stat Pending Results Patient Have Any Pending Studies at Discharge: No Discharge Instructions Given to Patient (Per Discharging Provider) You were admitted after having a seizure. You were seen by the neurologist and had a brain MRI which was normal-you did not have a stroke. The neurologist recommends increasing your lamotrigine to 250 mg by mouth twice a day, and adding on a second antiseizure drug called Keppra (levetiracetam) 500 mg by mouth twice a day. You will need to have the blood levels checked of your lamotrigine in 1 week-this has been ordered for you-please go to the lab first thing in the morning and get the blood drawn before you take your morning medications to get the correct level. Follow-up with the neurologist within 2 to 3 weeks-call for an appointment. You were found to have a severe blockage of your right carotid artery. You were started on aspirin to help prevent stroke that can happen as a result of this blockage. Please follow-up with the vascular surgeon, Dr. Villagomez, within 1 month for further evaluation to see if you need to have surgery to unclog your artery. It is very important that you work on quitting smoking to help prevent this from clogging up further. For your pancreatitis, you had a mild flare in the hospital. Please continue on a low-fat diet and keep your follow-up appointment with the GI doctor. You can take oxycodone as needed for moderate to severe pain but try to take this sparingly. It was a pleasure taking care of you! If you have any questions about your care before your hospital follow-up visit with your primary care provider, please call [phone] and ask to be transferred to the [facility] Medicine office. Sincerely, Amada Coker M.D. Total Time Total Time Spent Total Time Spent (In Minutes): 35 minutes Total Time Includes: Examination of the Patient, Discharge Planning and Medication Reconciliation Coding Level of Care Code 50376 INP/OBS DISCH >30 MIN Diagnoses Seizure R56.9 Mesial temporal sclerosis G93.81 Stenosis of right carotid artery I65.21 More than 50 percent stenosis of left internal carotid artery I65.22
[2025-07-30 11:16] VITALS: RESP 16; TEMP 98.2; O2SAT 95
[2025-07-30 12:13] VITALS: BP 110/52; PULSE 88
[2025-07-30] MEDS ORDERED: levETIRAcetam 500 MG TAB PO SCH ×2 (21:00)
[2025-08-03 16:43] LABS: 7-Aminoclonaz, Confirm NEGATIVE ng/mL (<25); Hydro-Alp Ur, GC/MS NEGATIVE ng/mL (<25); Hydroxyethylflurazepam, Conf NEGATIVE ng/mL (<50); Hydroxymidazolam Ur, GC/MS 7263 ng/mL (<50); Lorazepam, Ur GC/MS 671 ng/mL (<50); MDA negative; MDEA negative; MDMA (Ecstasy) Urine, Confirm negative; Marijuana Quant, GCMS Urine >5000 ng/mL (<5); Nordiazepam, Confirm NEGATIVE ng/mL (<50); Oxazepam Ur, GC/MS NEGATIVE ng/mL (<50); Temazepam, Confirm NEGATIVE ng/mL (<50)
== END 2025-07-30 12:53 | disposition home or self-care (01) ==
LOC: ED 19:42 → SUATTDRO 07-29 00:12 → EDINP 07-29 00:12 → INTOOBSV 07-29 00:12 → 2S 07-29 14:28